=== PATIENT | male | born 1950 | race Caucasian/White ===

== ENCOUNTER → 2016-12-16 | Outpatient (REF) | payer MEDICARE, OTHER ==
[~2016-12-16] MED LIST: AMLO10CA29 PO; AMLO10TA PO; BENA40TA PO; BISO5TAB5 PO; CIPR500T89 PO; FLAG500T PO; HUMA50IN3 SC; INSULANT SC; PROT1TAB2 PO
== END ==
LOC: M LAB REF 13:03
PROVIDERS: ATTEND Internal Medicine
DX: R53.81 Other malaise (principal); E04.1 Nontoxic single thyroid nodule

== ENCOUNTER → 2017-01-20 | Outpatient (CLI) | payer MEDICARE, OTHER ==
[~2017-01-20] MED LIST changes: +FLOM5CAP PO; +LUNE3TAB48 PO
[2017-01-20 12:00] LABS: MEAN CORPUSCULAR HEMOGLOBIN 29.8 pg (27.0-33.0); MEAN CORPUSCULAR HGB CONC 34.2 g/dl (32.0-36.5); MEAN CORPUSCULAR VOLUME 87.2 fl (80.0-96.0); RED CELL DISTRIBUTION WIDTH 13.6 % (11.5-14.5)
== END ==
LOC: M LAB 11:12
PROVIDERS: ATTEND Anesthesiology
DX: Z01.818 Encounter for other preprocedural examination (principal); E04.1 Nontoxic single thyroid nodule; G47.30 Sleep apnea, unspecified; E10.9 Type 1 diabetes mellitus without complications

== ENCOUNTER 2017-01-24 06:04 | Day surgery (SDC) | payer MEDICARE, OTHER ==
[~2017-01-24] VITALS: Ht 182.9 cm; Wt 142.2 kg
[2017-01-24] MEDS ORDERED: PROPOFOL 200 MG/20 ML VIAL As Ordered ONE ×2 (07:16→08:32)
[2017-01-24] MEDS ORDERED: LIDOCAINE 2% INJ 100 MG/5 ML SDV (FOR ANES.) As Ordered ONE (07:16)
[2017-01-24] MEDS ORDERED: MIDAZOLAM INJ 2 MG/2 ML VIAL (J2250) As Ordered ONE ×2 (07:17→10:49)
[2017-01-24] MEDS ORDERED: fentaNYL 250 MCG/5 ML INJECTION (J3010) As Ordered ONE (07:17)
[2017-01-24] MEDS ORDERED: BACITRACIN OINT 30GM As Ordered ONE (07:21)
[2017-01-24] MEDS ORDERED: LIDOCAINE W/EPINEPHRINE 1% 20ML VIAL As Ordered ONE (07:21)
[2017-01-24] MEDS ORDERED: ePHEDrine SULFATE 25 MG/5 ML(5MG/ML) SYRINGE As Ordered ONE ×2 (08:04→08:41)
[2017-01-24] MEDS ORDERED: HYDROmorphone HCL 2 MG/ML 1ML VIAL (J1170) As Ordered ONE (08:13)
[2017-01-24] MEDS ORDERED: REMIFENTANIL 1MG 3ML VIAL As Ordered ONE ×2 (08:13→09:20)
[2017-01-24] MEDS ORDERED: PHENYLephrine HCL 500 MCG/5 ML (100MCG/ML) SYRINGE (J2370) As Ordered ONE (08:41)
[2017-01-24] MEDS ORDERED: ONDANSETRON 4MG/2ML VIAL (J2405) As Ordered ONE (09:29)
[2017-01-24] MEDS ORDERED: LR 1,000 ML IV SCH ×2 (11:00)
[2017-01-24] MEDS ORDERED: fentaNYL 100 MCG/2 ML INJECTION (J3010) IV PRN (11:00)
[2017-01-24] MEDS ORDERED: PERCOCET 5MG/325MG TAB PO PRN (11:00)
[2017-01-24] MEDS ORDERED: ACETAMINOPH W/CODEINE #3 TAB UD PO PRN (11:00)
[2017-01-24] MEDS ORDERED: HYDROmorphone HCL 1 MG/ML SYRINGE (J1170) IV PRN (11:00)
[2017-01-24] MEDS ORDERED: MORPHINE 10 MG/ML 1ML VIAL IV PRN (11:00)
[2017-01-24] MEDS ORDERED: ONDANSETRON 4MG/2ML VIAL (J2405) IV PRN (11:00)
[2017-01-24] MEDS ORDERED: LABETALOL HCL 100 MG/20 ML VIAL As Ordered ONE (11:10)
[2017-01-24] MEDS ORDERED: LEVALBUTEROL 1.25 MG/0.5 ML CONCENTRATE NEB INH ONE (14:00)
[2017-01-24] MEDS ORDERED: DEXTROSE 50% 50 ML SYRINGE IV PRN (15:15)
[2017-01-24] MEDS ORDERED: GLUCAGON FOR INJ 1 MG VIAL (J1610) SC PRN (15:15)
[2017-01-24] MEDS ORDERED: GLUCOSE 4 GM CHEW TABLET PO PRN (15:15)
[2017-01-24 16:40] VITALS: BP 160/74
[2017-01-24] MEDS: HumaLOG INSULIN (NovoLOG) PER UNIT SC SCH (17:17)
[2017-01-24] MEDS: NORCO, ANEXSIA 5/325MG TABLET (HYDROcodone/ACETAMINOPHEN) PO PRN (18:43)
[2017-01-24 18:45] VITALS: O2SAT 97
[2017-01-24 19:42] VITALS: BP 149/71
--- NOTE | 2017-01-24 20:16 | IPNPDOC ---
Subjective Date Seen The patient was seen on 01/24/17. Subjective Chief Complaint/HPI The patient is a 66-year-old male admitted with a reason for visit of Right Thyroid Mass. Events since last encounter Patient seen in post op recovery. Experienced shortness of breath post operatively associated with excessive post nasal drip. He has been experiencing post nasal drip that he associates with the use of his bipap for weeks. After arosing from anesthesia, he seemed to have more than normal, and he felt it pooling in the back of his throat. He clearly denies chest pain, orthopnea or shortness of breath currently. He is sitting in chair during my exam as laying down result in continued post nasal drip. Constitutional: Denies: Chills, Fever ENT: Reports: Head Aches (bifrontal) Pulmonary: Denies: Cough, Dyspnea Cardiovascular: Denies: Chest Pain, Orthopnea, Palpitations Gastrointestinal: Denies: Abdominal Pain, Nausea, Vomiting Objective Physical Examination General Exam: Positive: Alert, Cooperative ENT Exam: Positive: Mucous membr. moist/pink, Pharynx Normal (some echymosis of the soft palate at the junction with the tonsilar pillars) Chest Exam: Positive: Normal air movement, Other, Negative: Diminished, Rales, Rhonchi Heart Exam: Positive: Normal S1, Normal S2, Rate Normal, Regular Rhythm Abdomen Exam: Positive: BS Hypoactive, Soft, Negative: Tenderness Extremity Exam: Positive: Edema (trace bilateral), Negative: Clubbing, Cyanosis Assessment /Plan Problems (1) Thyroid enlargement Status: Acute Problem Text: POD#0 partial thyroidectomy (2) GUS treated with BiPAP Status: Chronic Problem Text: Brought bipap from home very compliant (3) Diabetes mellitus Status: Chronic Problem Text: on insulin. switched to levemir lower dose, as lantus not on formulary Ordered sliding scale (4) Obesities, morbid Status: Chronic Problem Text: complicates care (5) HTN (hypertension) Status: Chronic Problem Text: continue beta yusef with hold parameters Reassess BP in am (6) Hyperlipidemia Status: Chronic (7) Nasal drainage Status: Acute Problem Text: trial of astelin Plan/VTE VTE Prophylaxis Ordered?: Yes VS, I&O, 24H, Fishbone Vital Signs/I&O Vital Signs Date Time Temp Pulse Resp B/P Pulse Ox O2 Delivery O2 Flow Rate FiO2 01/24/17 19:42 98.9 77 20 149/71 96 NIPPV (BIPAP/CPAP) 01/24/17 11:25 4 Laboratory Data 24H LABS Laboratory Tests 2 01/24/17 06:37: Bedside Glucose (Misc Panel) 225H 01/24/17 10:58: Bedside Glucose (Misc Panel) 208H 01/24/17 17:07: Bedside Glucose (Misc Panel) 234H MAMIE BENSON MD Jan 24, 2017 20:16
--- NOTE | 2017-01-24 20:30 | RO ---
DATE OF PROCEDURE: 01/24/2017 PREOPERATIVE DIAGNOSIS: Right thyroid mass. POSTOPERATIVE DIAGNOSIS: Right thyroid mass. PROCEDURE: Right thyroid lobectomy. SURGEON: Dr. Mor Greenberg SCREWHEAD POLISHER: Dr. Isidro Magana and Palmer Hamilton. ANESTHESIA: FINDINGS: Very large right lobe of thyroid which extended behind the esophagus and up to above the hyoid bone. DESCRIPTION OF PROCEDURE: Under general anesthesia with the patient intubated, the patient was prepped and draped in the usual manner. I did use a nerve monitoring tube during the procedure, so the electrodes were hooked up prior to surgery. Skin incision was mapped out. I divided skin, subcutaneous and platysma after I infiltrated with lidocaine with epinephrine. I dissected through platysma, then dissected inferiorly and superiorly. I divided the strap muscles in the midline. I then divided the strap muscles on the right side. I started first by dissecting inferiorly around the inferior part of the gland. Vessels seen were divided with a Harmonic scalpel. I divided the isthmus. I then used this dissection to follow inferiorly. I dissected it close to the thyroid gland to preserve the parathyroid. The vein, artery inferiorly were divided. I did not see the nerve. I then dissected from medial to lateral and then superiorly. I dissected up almost until I reached the cricoid area. I did dissect the thyroid off of the trachea more superiorly. Then, attention was directed superiorly. I divided the strap muscles again. I dissected the thyroid from the larynx and followed it from the isthmus superior. I then dissected around laterally. I identified the superior pole vessels and divided with the Harmonic scalpel. Then, using sharp and blunt dissection and the Harmonic scalpel, I dissected around the superior pole laterally and then once I got superiorly, I could pull the thyroid down and dissect it off medially with just blunt dissection. Once this was done, then I was able to deliver the thyroid from the neck and then using blunt dissection, I dissected the thyroid completely free and delivered it from the wound. After it was delivered, as I stayed right on the gland, I dissected down an area that looked rather fatty. I found the recurrent laryngeal nerve, which was running from inferior to superior, lateral to medial, was found to be intact and looked a bit more like fat but it stimulated well. There was no bleeding. Less than 20 mL of estimated blood loss. I irrigated the area, and there was no bleeding. I then put in a Floyd-Johnson drain through a separate stab wound and closed the neck with #4-0 Vicryl and #5-0 nylon. I put a #2-0 silk suture to hold the drain in place. The patient tolerated the procedure well, was extubated and transferred to the recovery room in excellent condition.
[2017-01-24] MEDS: LEVEMIR (INSULIN DETEMIR) 1 UNITS/0.01ML SC SCH (20:34)
[2017-01-24] MEDS: AZELASTINE 137MCG NASAL SPY 30 ML (ASTELIN) SCH (21:00)
[2017-01-24] MEDS ORDERED: HumaLOG INSULIN (NovoLOG) PER UNIT SC SCH (21:00)
[2017-01-24] MEDS ORDERED: LEVALBUTEROL 1.25 MG/0.5 ML CONCENTRATE NEB As Ordered ONE (21:53)
[2017-01-25] VITALS (15 sets, daily range): BP systolic 145–175; BP diastolic 65–85; O2SAT 91–95
[2017-01-25] MEDS: NORCO, ANEXSIA 5/325MG TABLET (HYDROcodone/ACETAMINOPHEN) PO PRN ×2 (00:12→05:00)
[2017-01-25] MEDS ORDERED: SLF 3 ML SYR IV PRN (00:15)
--- NOTE | 2017-01-25 00:50 | ECGEPIP ---
Stationary ECG Study [facility] Test Date: 2017-01-24 Pat Name: MAC GROSS Department: Room: - Gender: M Clinical Care Leader: CELSO : 1950 Requested By: MAMIE Fontana Order Number: [id number] Reading MD: Fran Barr Measurements Intervals [place] Rate: 79 P: 46 CT: 175 QRS: -17 QRSD: 94 T: -1 QT: 396 QTc: 455 Interpretive Statements SINUS RHYTHM LAST TRACING ON 05/20/2015 AT 23:55:51, NO SIGNIFICANT CHANGES Pt sitting upright in chair Electronically Signed On 01-25-2017 0:49:57 EDT by Fran Barr
[2017-01-25] MEDS: SLF 3 ML SYR IV SCH ×2 (05:43→13:03)
[2017-01-25 06:12] LABS: ANION GAP 11 MEQ/L (8-16); BLOOD UREA NITROGEN 13 MG/DL (7-18); CARBON DIOXIDE LEVEL 26 MEQ/L (21-32); CHLORIDE LEVEL 101 MEQ/L (98-107); CREATININE FOR GFR 1.06 MG/DL (0.70-1.30); GLOMERULAR FILTRATION RATE > 60.0 (>49); GLUCOSE, FASTING 228 MG/DL (80-110); SODIUM LEVEL 138 MEQ/L (136-145)
[2017-01-25 06:32] LABS: MEAN CORPUSCULAR HEMOGLOBIN 29.8 pg (27.0-33.0); MEAN CORPUSCULAR HGB CONC 33.9 g/dl (32.0-36.5); MEAN CORPUSCULAR VOLUME 87.8 fl (80.0-96.0); RED CELL DISTRIBUTION WIDTH 13.7 % (11.5-14.5); WHITE BLOOD COUNT 10.2 K/mm3 (4.0-10.0)
[2017-01-25] MEDS: HumaLOG INSULIN (NovoLOG) PER UNIT SC SCH ×2 (08:19→13:03)
[2017-01-25] MEDS: AZELASTINE 137MCG NASAL SPY 30 ML (ASTELIN) SCH (08:19)
[2017-01-25] MEDS: LEVEMIR (INSULIN DETEMIR) 1 UNITS/0.01ML SC SCH (08:20)
[2017-01-25] MEDS ORDERED: BISOPROLOL FUMARATE 5 MG TAB PO SCH (09:00)
[2017-01-25] MEDS ORDERED: PANTOPRAZOLE 40MG TAB (PROTONIX) PO SCH (09:00)
--- NOTE | 2017-01-25 12:08 | IPNPDOC ---
Subjective Date Seen The patient was seen on 01/25/17. Subjective Chief Complaint/HPI The patient is a 66-year-old male admitted with a reason for visit of Right Thyroid Mass. Events since last encounter Feeling well. No complaint of chest pain, not short of breath, post nasal drip continues, fullness in throat makes swallowing more difficult than usual Constitutional: Denies: Chills, Fever Pulmonary: Denies: Cough, Dyspnea Cardiovascular: Denies: Chest Pain, Palpitations Gastrointestinal: Denies: Abdominal Pain, Nausea, Vomiting Objective Physical Examination General Exam: Positive: Alert, Cooperative, No Acute Distress ENT Exam: Positive: Mucous membr. moist/pink Chest Exam: Positive: Normal air movement, Negative: Diminished, Rales, Rhonchi Heart Exam: Positive: Normal S1, Normal S2, Rate Normal, Regular Rhythm Abdomen Exam: Positive: BS Hypoactive, Soft, Negative: Tenderness Extremity Exam: Positive: Edema (trace bilateral), Negative: Clubbing, Cyanosis Assessment /Plan Problems (1) Thyroid enlargement Status: Acute Problem Text: POD#1 partial thyroidectomy (2) GUS treated with BiPAP Status: Chronic Problem Text: Brought bipap from home very compliant used last night (3) Diabetes mellitus Status: Chronic Problem Text: on insulin. switched to levemir lower dose, as lantus not on formulary Ordered sliding scale Upon discharge if today- recommend 2/3 normal dose of lantus tonight resume normal dose thereafter (4) Obesities, morbid Status: Chronic Problem Text: complicates care (5) HTN (hypertension) Status: Chronic Problem Text: continue beta yusef with hold parameters Can resume home meds at discharge (6) Hyperlipidemia Status: Chronic (7) Nasal drainage Status: Acute Problem Text: astelin at discharge as a trial Plan/VTE VTE Prophylaxis Ordered?: Yes VS, I&O, 24H, Fishbone Vital Signs/I&O Vital Signs Date Time Temp Pulse Resp B/P Pulse Ox O2 Delivery O2 Flow Rate FiO2 01/25/17 09:34 66 155/76 68 166/82 71 163/77 01/25/17 08:00 98.5 22 93 Room Air 01/24/17 11:25 4 I&O- Last 24 Hours up to 6 AM 01/25/17 06:00 Intake Total 2030 ml Output Total 2835 ml Balance -805 ml Laboratory Data 24H LABS Laboratory Tests 2 01/24/17 17:07: Bedside Glucose (Misc Panel) 234H 01/24/17 20:21: Bedside Glucose (Misc Panel) 285H 01/25/17 05:16: Anion Gap 11, Blood Urea Nitrogen 13, Creatinine 1.06, Sodium Level 138, Potassium Level 4.0, Chloride Level 101, Carbon Dioxide Level 26, Calcium Level 9.0, Glomerular Filtration Rate > 60.0 01/25/17 09:22: Bedside Glucose (Misc Panel) 300H 01/25/17 11:11: Bedside Glucose (Misc Panel) 280H CBC/BMP Laboratory Tests 01/25/17 05:16 Calcium Level 9.0, Red Blood Count 4.41, Mean Corpuscular Volume 87.8, Mean Corpuscular Hemoglobin 29.8, Mean Corpuscular Hemoglobin Concent 33.9, Red Cell Distribution Width 13.7 MAMIE BENSON MD Jan 25, 2017 12:08
[2017-01-25] MEDS ORDERED: AZEL0.1S3 (16:56)
[2017-01-25] MEDS ORDERED: ACET30TAB PO (16:56)
== END 2017-01-25 17:53 | disposition home or self-care (01) ==
LOC: M SDC 06:04 → M PCU 16:41 → M SDC 01-25 17:53
PROVIDERS: ATTEND Otolaryngology
DX: E04.1 Nontoxic single thyroid nodule (principal); E11.22 Type 2 diabetes mellitus with diabetic chronic kidney disease; E11.65 Type 2 diabetes mellitus with hyperglycemia; E11.21 Type 2 diabetes mellitus with diabetic nephropathy; K21.9 Gastro-esophageal reflux disease without esophagitis; I12.9 Hypertensive chronic kidney disease with stage 1 through stage 4 chronic kidney disease, or unspecified chronic kidney disease; N18.3 Chronic kidney disease, stage 3 (moderate); K22.70 Barrett's esophagus without dysplasia; G47.33 Obstructive sleep apnea (adult) (pediatric); E78.00 Pure hypercholesterolemia, unspecified; E88.81 Metabolic syndrome and other insulin resistance; E66.01 Morbid (severe) obesity due to excess calories; Z68.41 Body mass index [BMI] 40.0-44.9, adult; K76.9 Liver disease, unspecified; E11.42 Type 2 diabetes mellitus with diabetic polyneuropathy; N40.0 Benign prostatic hyperplasia without lower urinary tract symptoms; I49.9 Cardiac arrhythmia, unspecified; M54.2 Cervicalgia; R06.83 Snoring; Z88.0 Allergy status to penicillin; Z88.1 Allergy status to other antibiotic agents; Z88.2 Allergy status to sulfonamides; Z79.899 Other long term (current) drug therapy; Z79.4 Long term (current) use of insulin; Z87.891 Personal history of nicotine dependence
CPT/HCPCS: 36415; 60220; 80048; 85027; 88307; 93005; J1170; J2250; J2370; J2405; J3010

== ENCOUNTER 2017-01-27 09:46 | Emergency (ER) | payer MEDICARE, OTHER ==
[~2017-01-27] VITALS: Ht 180.3 cm; Wt 140.6 kg
[~2017-01-27 09:46] MED LIST changes: +ACET30TAB PO; +AZEL0.1S3
[2017-01-27 11:07] LABS: VENOUS BASE EXCESS -0.1 (-2.0-2.0); VENOUS O2 SATURATION 93.6 % (60.0-80.0); VENOUS PARTIAL PRESSURE CO2 43.2 mmHg (38.0-50.0); VENOUS STANDARD HCO3 24.3 MEQ/L; VENOUS TOTAL CO2 26.5 MEQ/L (24.0-28.0)
[2017-01-27 11:10] LABS: BASO % 0.5 % (0.0-1.0); EOS # 0.3 K/mm3 (0.0-0.50); EOS % 2.7 % (0.0-3.0); LARGE UNSTAINED CELL # 0.2 K/mm3 (0.0-0.4); LARGE UNSTAINED CELL % 1.5 % (0.0-4.0); LYMPH % 17.2 % (24.0-44.0); MEAN CORPUSCULAR HEMOGLOBIN 29.8 pg (27.0-33.0); MEAN CORPUSCULAR HGB CONC 33.7 g/dl (32.0-36.5); MEAN CORPUSCULAR VOLUME 88.4 fl (80.0-96.0); MONO # 0.7 K/mm3 (0.0-0.8); MONO % 6.4 % (0.0-5.0); NEUTROPHILS # 7.6 K/mm3 (1.8-7.7); NEUTROPHILS % 71.8 % (36.0-66.0); PLATELET COUNT, AUTOMATED 195 k/mm3 (150-450); RED CELL DISTRIBUTION WIDTH 13.5 % (11.5-14.5); WHITE BLOOD COUNT 10.6 K/mm3 (4.0-10.0)
[2017-01-27 11:32] LABS: ANION GAP 9 MEQ/L (8-16); BLOOD UREA NITROGEN 14 MG/DL (7-18); CALCIUM LEVEL 9.5 MG/DL (8.8-10.2); CARBON DIOXIDE LEVEL 27 MEQ/L (21-32); CHLORIDE LEVEL 103 MEQ/L (98-107); CREATININE FOR GFR 0.99 MG/DL (0.70-1.30); GLOMERULAR FILTRATION RATE > 60.0 (>49); GLUCOSE, FASTING 184 MG/DL (80-110); POTASSIUM SERUM 4.4 MEQ/L (3.5-5.1); SODIUM LEVEL 139 MEQ/L (136-145)
[2017-01-27] MEDS ORDERED: NS 500 ML IV ONE (12:00)
[2017-01-27 13:55] VITALS: O2SAT 96
[2017-01-27 14:06] VITALS: BP 149/78
--- NOTE | 2017-01-28 19:42 | ECGEPIP ---
Stationary ECG Study [facility] - ED Test Date: 2017-01-27 Pat Name: MAC GROSS Department: Room: - Gender: M Tax Senior Associate: rn : 1950 Requested By: Kelvin Henderson Order Number: [id number] Reading MD: Marilou Glover Measurements Intervals [place] Rate: 54 P: 51 MD: 185 QRS: -12 QRSD: 93 T: 2 QT: 413 QTc: 392 Interpretive Statements SINUS BRADYCARDIA NSTTW ABNORMALITY DECREASED RATE 01/24/17 Electronically Signed On 01-28-2017 19:42:23 EDT by Marilou Glover
== END 2017-01-27 14:07 | disposition home or self-care (01) ==
LOC: M ED 10:39
DX: R53.1 Weakness (principal)

== ENCOUNTER → 2017-02-08 | Outpatient (REF) | payer MEDICARE, OTHER | LOC: M LAB REF 14:48 | PROVIDERS: ATTEND Physician Assistant Medical | DX: L02.91 Cutaneous abscess, unspecified (principal) ==

== ENCOUNTER → 2017-03-14 | Outpatient (CLI) | payer MEDICARE, OTHER ==
[~2017-03-14] MED LIST changes: +E-Z-GAS II EFFERVESCENT PACKET (SODIUM BICARB./CITRIC ACID/SIMETHICONE) As Ordered ONE; +E-Z-HD 98% w/w 340GM SUSP BTL As Ordered ONE; +E-Z-PAQUE 96% w/w SUSP 176GM BTL As Ordered ONE
--- NOTE | 2017-03-14 17:58 | REP ---
ESOPHAGRAM: The procedure was performed under the direct supervision of Dr. Engel. The images were reviewed with Dr. Engel. A single view PA chest x-ray is submitted as a senior process control tech film. There is no change compared to a previous chest x-ray performed on 01/01/2016. Liquid barium and gas producing granules were given in the erect position as well as liquid barium in the prone oblique position in order to perform a double contrast esophagram examination. During the oral and pharyngeal stages of deglutition there is penetration. Esophageal transport is prompt and efficient and there is no esophagitis, stricture or mucosal ring. There is a hiatal hernia present. There is full column gastroesophageal reflux demonstrated to above the level of the jay. Note is made of multiple subcentimeter polyps within the stomach. IMPRESSION: 1. There is laryngeal penetration. 2. There is a hiatal hernia present. There is full column gastroesophageal reflux demonstrated to above the level of the jay. 3. Note is made of multiple subcentimeter polyps within the stomach. 1 minute and 20 seconds of fluoroscopy time was utilized for this procedure. Reviewed by ULISSES Saavedra 03/15/2017 09:38 AEdited and Signed by Prieto Engel MD 03/15/2017 04:41 P
== END ==
LOC: M RAD 08:20
PROVIDERS: ATTEND Otolaryngology
DX: R47.02 Dysphasia (principal); K44.9 Diaphragmatic hernia without obstruction or gangrene; K31.7 Polyp of stomach and duodenum

== ENCOUNTER → 2017-03-21 | Outpatient (CLI) | payer MEDICARE, OTHER ==
[~2017-03-21] MED LIST changes: -E-Z-GAS II EFFERVESCENT PACKET (SODIUM BICARB./CITRIC ACID/SIMETHICONE) As Ordered ONE; -E-Z-HD 98% w/w 340GM SUSP BTL As Ordered ONE; -E-Z-PAQUE 96% w/w SUSP 176GM BTL As Ordered ONE
== END ==
LOC: M LAB 11:12
PROVIDERS: ATTEND Otolaryngology
DX: E03.9 Hypothyroidism, unspecified (principal)

== ENCOUNTER 2017-05-27 14:25 | Emergency (ER) | payer MEDICARE, OTHER ==
[~2017-05-27] VITALS: Ht 182.9 cm; Wt 145.5 kg
[~2017-05-27 14:25] MED LIST changes: +CIPR-249 PO; -CIPR500T89 PO; +LUNE3TAB36 PO; -LUNE3TAB48 PO
[2017-05-27] MEDS ORDERED: LEVO100T5 PO (14:36)
[2017-05-27] MEDS ORDERED: GABA-282 PO (14:36)
[2017-05-27] MEDS ORDERED: CEFD300CAP FT (14:38)
[2017-05-27 15:27] LABS: BASO # 0.1 K/mm3 (0.0-0.2); BASO % 1.3 % (0.0-1.0); EOS # 0.3 K/mm3 (0.0-0.50); EOS % 3.6 % (0.0-3.0); LARGE UNSTAINED CELL # 0.2 K/mm3 (0.0-0.4); LARGE UNSTAINED CELL % 2.5 % (0.0-4.0); LYMPH % 23.1 % (24.0-44.0); MEAN CORPUSCULAR HEMOGLOBIN 30.7 pg (27.0-33.0); MEAN CORPUSCULAR HGB CONC 34.7 g/dl (32.0-36.5); MEAN CORPUSCULAR VOLUME 88.3 fl (80.0-96.0); MONO # 0.5 K/mm3 (0.0-0.8); MONO % 5.8 % (0.0-5.0); NEUTROPHILS # 5.4 K/mm3 (1.8-7.7); NEUTROPHILS % 63.7 % (36.0-66.0); PLATELET COUNT, AUTOMATED 211 k/mm3 (150-450); RED CELL DISTRIBUTION WIDTH 13.3 % (11.5-14.5); WHITE BLOOD COUNT 8.4 K/mm3 (4.0-10.0)
[2017-05-27] MEDS ORDERED: CLINDAMYCIN 300 MG in APPROPRIATE DILUENT 1 EA IV ONE (15:30)
[2017-05-27] MEDS ORDERED: NS 1,000 ML IV ONE (15:30)
[2017-05-27 15:43] LABS: ANION GAP 6 MEQ/L (8-16); BLOOD UREA NITROGEN 12 MG/DL (7-18); CALCIUM LEVEL 10.2 MG/DL (8.8-10.2); CARBON DIOXIDE LEVEL 29 MEQ/L (21-32); CHLORIDE LEVEL 102 MEQ/L (98-107); CREATININE FOR GFR 1.11 MG/DL (0.70-1.30); GLOMERULAR FILTRATION RATE > 60.0 (>49); GLUCOSE, FASTING 216 MG/DL (80-110); POTASSIUM SERUM 4.1 MEQ/L (3.5-5.1); SODIUM LEVEL 137 MEQ/L (136-145)
[2017-05-27] MEDS ORDERED: CLEO300C2 PO (16:47)
[2017-05-27 16:56] VITALS: BP 156/74
== END 2017-05-27 16:57 | disposition home or self-care (01) ==
LOC: M ED 14:25
DX: L03.115 Cellulitis of right lower limb (principal); E11.9 Type 2 diabetes mellitus without complications; I10 Essential (primary) hypertension; Z87.891 Personal history of nicotine dependence

== ENCOUNTER → 2017-05-29 | Outpatient (REF) | payer MEDICARE, OTHER ==
[~2017-05-29] MED LIST changes: +CEFD300CAP FT; +CLEO300C2 PO; +GABA-282 PO; +LEVO100T5 PO
== END ==
LOC: M LAB REF 16:54
PROVIDERS: ATTEND Nurse Practitioner Family
DX: L03.115 Cellulitis of right lower limb (principal)

== ENCOUNTER 2017-12-21 12:12 | Emergency (ER) | payer MEDICARE, OTHER ==
[2017-12-21] MEDS: IPRATROPIUM 0.5MG/ALBUTEROL 2.5MG INH SOL UD 3ML (DUONEB)(J7620) NEB (14:29)
[2017-12-21 14:38] LABS: BASO # 0.1 10^3/uL (0.0-0.2); BASO % 0.5 % (0.0-1.0); EOS # 0.4 10^3/uL (0.0-0.50); EOS % 3.7 % (0.0-3.0); HEMATOCRIT 43.2 % (42.0-52.0); HEMOGLOBIN 14.7 g/dl (14.0-18.0); IMMATURE GRANULOCYTE % 0.4 % (0-3.0); LYMPH # 1.1 10^3/uL (1.5-4.5); LYMPH % 10.4 % (24.0-44.0); MEAN CORPUSCULAR HEMOGLOBIN 29.6 pg (27.0-33.0); MEAN CORPUSCULAR VOLUME 86.9 fl (80.0-96.0); MONO # 0.8 10^3/uL (0.0-0.8); MONO % 7.4 % (0.0-5.0); NEUTROPHILS # 8.5 10^3/uL (1.8-7.7); NEUTROPHILS % 77.6 % (36.0-66.0); PLATELET COUNT, AUTOMATED 197 10^3/uL (150-450); RED BLOOD COUNT 4.97 10^6/uL (4.30-6.10); RED CELL DISTRIBUTION WIDTH 13.2 % (11.5-14.5)
[2017-12-21 14:54] LABS: BEDSIDE GLUCOSE 193 MG/DL (80-115)
[2017-12-21 15:05] LABS: ANION GAP 9 MEQ/L (8-16); BLOOD UREA NITROGEN 13 MG/DL (7-18); CALCIUM LEVEL 9.6 MG/DL (8.8-10.2); CARBON DIOXIDE LEVEL 27 MEQ/L (21-32); CHLORIDE LEVEL 100 MEQ/L (98-107); CK-MB VALUE MASS 1.4 NG/ML (0.0-3.6); CPK CREATINE PHOSPHOKINASE 150 U/L (39-308); CREATININE FOR GFR 1.06 MG/DL (0.70-1.30); GLOMERULAR FILTRATION RATE > 60.0 (>49); GLUCOSE, FASTING 202 MG/DL (70-100); MB/CK RELATIVE INDEX 0.93 (< OR =4); POTASSIUM SERUM 4.1 MEQ/L (3.5-5.1); SODIUM LEVEL 136 MEQ/L (136-145); TROPONIN I < 0.02 NG/ML (< 0.10)
[2017-12-21 15:08] LABS: LACTIC ACID SEPSIS PROTOCOL 2.2 MMOL/L (0.4-2.0)
[2017-12-21 15:10] LABS: ALBUMIN 3.8 GM/DL (3.2-5.2); ALBUMIN/GLOBULIN RATIO 0.93 (1.00-1.93); ALKALINE PHOSPHATASE 93 U/L (45-117); ALT/SGPT 38 U/L (12-78); AST/SGOT 26 U/L (7-37); BILIRUBIN,DIRECT 0.2 MG/DL (0.0-0.2); BILIRUBIN,TOTAL 0.5 MG/DL (0.2-1.0); NT-PRO BNP 267 PG/ML (<125); TOTAL PROTEIN 7.9 GM/DL (6.4-8.2)
[2017-12-21 15:29] LABS: INFLUENZA A AMPLIFICATION POSITIVE (NEGATIVE); INFLUENZA B AMPLIFICATION NEGATIVE (NEGATIVE)
[2017-12-21] MEDS: NS 1,000 ML IV (15:30)
[2017-12-21] MEDS: IBUPROFEN 600 MG TAB PO (15:45)
[2017-12-21] MEDS: OSELTAMIVIR PHOSPHATE 75 MG CAP (TAMIFLU) PO (17:09)
== END 2017-12-21 17:27 | disposition home or self-care (01) ==
LOC: M ED 12:12
DX: J98.01 Acute bronchospasm (principal); J09.X2 Influenza due to identified novel influenza A virus with other respiratory manifestations; E11.9 Type 2 diabetes mellitus without complications; G47.30 Sleep apnea, unspecified; K21.9 Gastro-esophageal reflux disease without esophagitis; N40.0 Benign prostatic hyperplasia without lower urinary tract symptoms; Z79.2 Long term (current) use of antibiotics; Z79.890 Hormone replacement therapy; Z79.899 Other long term (current) drug therapy; Z88.1 Allergy status to other antibiotic agents; Z88.0 Allergy status to penicillin; Z88.8 Allergy status to other drugs, medicaments and biological substances; Z87.891 Personal history of nicotine dependence; Z87.19 Personal history of other diseases of the digestive system; Z98.890 Other specified postprocedural states; Z86.59 Personal history of other mental and behavioral disorders
CPT/HCPCS: 71046

== ENCOUNTER → 2018-01-02 | Outpatient (REF) | payer MEDICARE, OTHER ==
[2018-01-02 20:19] LABS: BASO # 0.1 10^3/uL (0.0-0.2); BASO % 0.7 % (0.0-1.0); EOS # 0.4 10^3/uL (0.0-0.50); EOS % 4.2 % (0.0-3.0); HEMATOCRIT 43.5 % (42.0-52.0); HEMOGLOBIN 14.1 g/dl (14.0-18.0); IMMATURE GRANULOCYTE % 0.4 % (0-3.0); LYMPH # 1.9 10^3/uL (1.5-4.5); LYMPH % 21.2 % (24.0-44.0); MEAN CORPUSCULAR HEMOGLOBIN 29.3 pg (27.0-33.0); MEAN CORPUSCULAR HGB CONC 32.4 g/dl (32.0-36.5); MEAN CORPUSCULAR VOLUME 90.4 fl (80.0-96.0); MONO # 0.7 10^3/uL (0.0-0.8); MONO % 7.5 % (0.0-5.0); PLATELET COUNT, AUTOMATED 251 10^3/uL (150-450); RED BLOOD COUNT 4.81 10^6/uL (4.30-6.10); RED CELL DISTRIBUTION WIDTH 13.4 % (11.5-14.5); WHITE BLOOD COUNT 9.1 10^3/uL (4.0-10.0)
[2018-01-02 21:03] LABS: NT-PRO BNP 80 PG/ML (<125)
== END ==
LOC: M LAB REF 18:34
DX: J20.9 Acute bronchitis, unspecified (principal); R05 Cough; R06.02 Shortness of breath

== ENCOUNTER → 2018-01-02 | Outpatient (CLI) | payer MEDICARE, OTHER | LOC: M ADAMS 12:01 | DX: J20.9 Acute bronchitis, unspecified (principal); R05 Cough; R06.02 Shortness of breath | CPT/HCPCS: 85025 ==

== ENCOUNTER → 2018-06-15 | Outpatient (REF) | payer MEDICARE, OTHER ==
[2018-06-15 13:38] LABS: BASO # 0.1 10^3/uL (0.0-0.2); BASO % 0.9 % (0.0-1.0); EOS # 0.4 10^3/uL (0.0-0.50); HEMATOCRIT 40.6 % (42.0-52.0); HEMOGLOBIN 13.7 g/dl (13.5-17.5); IMMATURE GRANULOCYTE % 0.4 % (0-3.0); LYMPH # 1.7 10^3/uL (1.5-4.5); LYMPH % 21.3 % (24.0-44.0); MEAN CORPUSCULAR HEMOGLOBIN 30.4 pg (27.0-33.0); MEAN CORPUSCULAR HGB CONC 33.7 g/dl (32.0-36.5); MEAN CORPUSCULAR VOLUME 90.2 fl (80.0-96.0); MONO # 0.6 10^3/uL (0.0-0.8); MONO % 7.3 % (0.0-5.0); NEUTROPHILS # 5.2 10^3/uL (1.8-7.7); NEUTROPHILS % 65.1 % (36.0-66.0); PLATELET COUNT, AUTOMATED 214 10^3/uL (150-450); RED CELL DISTRIBUTION WIDTH 13.2 % (11.5-14.5); WHITE BLOOD COUNT 7.9 10^3/uL (4.0-10.0)
[2018-06-15 14:02] LABS: ERYTHROCYTE SEDIMENTATION RATE 47 mm/hr (0-20)
[2018-06-15 14:24] LABS: VITAMIN B12 LEVEL 343 PG/ML
[2018-06-15 14:25] LABS: FOLATE 9.5 NG/ML
[2018-06-15 14:26] LABS: ALBUMIN 3.5 GM/DL (3.2-5.2); ALBUMIN/GLOBULIN RATIO 0.85 (1.00-1.93); ALKALINE PHOSPHATASE 83 U/L (45-117); ALT/SGPT 58 U/L (12-78); ANION GAP 8 MEQ/L (8-16); AST/SGOT 51 U/L (7-37); BILIRUBIN,TOTAL 0.4 MG/DL (0.2-1.0); BLOOD UREA NITROGEN 20 MG/DL (7-18); CALCIUM LEVEL 9.6 MG/DL (8.8-10.2); CARBON DIOXIDE LEVEL 26 MEQ/L (21-32); CHLORIDE LEVEL 103 MEQ/L (98-107); CREATININE FOR GFR 1.21 MG/DL (0.70-1.30); GLOMERULAR FILTRATION RATE > 60.0 (>49); GLUCOSE, FASTING 318 MG/DL (70-100); POTASSIUM SERUM 4.2 MEQ/L (3.5-5.1); RHEUMATOID FACTOR QUANT < 10.0 IU/ML (<15.0); SODIUM LEVEL 137 MEQ/L (136-145); TOTAL PROTEIN 7.6 GM/DL (6.4-8.2)
[2018-06-15 14:38] LABS: ESTIMATED AVERAGE GLUCOSE 226 MG/DL (60-110); HEMOGLOBIN A1c 9.5 %
[2018-06-19 00:06] LABS: VITAMIN E(GAMMA TOCOPHEROL) 2.4 mg/L (0.5-4.9)
[2018-06-19 08:44] LABS: ANCA-ATYPICAL <1:20 titer (Neg:<1:20); ANTI DOUBLE STRAND-DNA AB 1 IU/mL (0-9); ANTINUCLEAR ANTIBODIES DIRECT Positive (Negative); COPPER PLASMA 92 ug/dL (72-166); CYTOPLASMIC NEUTROP AB ANCA-C <1:20 titer (Neg:<1:20); LEAD BLOOD ADULT <1 ug/dL (0-19); Lyme Disease IgG/IgM Antibodie <0.91 ISR (0.00-0.90); Lyme Disease IgM Ab Quantitati <0.80 index (0.00-0.79); MERCURY LEVEL None Detected ug/L (0.0-14.9); PERINUCLEAR AB ANCA-P <1:20 titer (Neg:<1:20); RNP ANTIBODIES <0.2 AI (0.0-0.9); SJOGREN'S ANTI SS-A <0.2 AI (0.0-0.9); SJOGREN'S ANTI SS-B 0.2 AI (0.0-0.9); SMITH ANTIBODIES <0.2 AI (0.0-0.9)
[2018-06-19 10:06] LABS: DRVV SCREEN 43.9 SEC
[2018-06-19 10:12] LABS: PTT LUPUS TYPE ANTICOAG SCREEN 1.1 (0-1.2)
[2018-06-20 08:06] LABS: CERULOPLASMIN 24.2 mg/dL (16.0-31.0); VITAMIN B1 LEVEL WHOLE BLOOD 114.7 nmol/L (66.5-200.0); VITAMIN B6,PYRIDOXAL PHOSPHATE 4.2 ug/L (5.3-46.7)
[2018-06-20 11:40] LABS: ALBUMIN % 53.7 % (55.8-66.1); ALPHA-1-GLOBULIN % 3.9 % (2.9-4.9)
[2018-06-20 11:41] LABS: ALBUMIN 4.08 GM/DL (3.29-5.55); ALPHA-2-GLOBULINS % 11.9 % (7.1-11.8); BETA-1-GLOBULINS 0.57 GM/DL (0.28-0.60); BETA-1-GLOBULINS % 7.5 % (4.7-7.2); BETA-2-GLOBULINS 0.82 GM/DL (0.19-0.55); BETA-2-GLOBULINS % 10.8 % (3.2-6.5); GAMMA GLOBULIN % 12.2 % (11.1-18.8); GAMMA GLOBULINS 0.93 GM/DL (0.65-1.58)
== END ==
LOC: M LABNEURO 10:46
DX: G62.9 Polyneuropathy, unspecified (principal)
CPT/HCPCS: 82525

== ENCOUNTER 2018-07-30 11:36 | Emergency (ER) | payer MEDICARE, OTHER ==
[2018-07-30] MEDS: MORPHINE 4 MG/ML 1ML VIAL/SYRINGE (J2270) IV (12:15)
[2018-07-30 12:22] LABS: BASO % 0.6 % (0.0-1.0); EOS # 0.5 10^3/uL (0.0-0.50); EOS % 6.7 % (0.0-3.0); HEMATOCRIT 41.8 % (42.0-52.0); HEMOGLOBIN 14.2 g/dl (13.5-17.5); IMMATURE GRANULOCYTE % 0.1 % (0-3.0); LYMPH # 1.7 10^3/uL (1.5-4.5); LYMPH % 23.9 % (24.0-44.0); MEAN CORPUSCULAR HEMOGLOBIN 30.4 pg (27.0-33.0); MEAN CORPUSCULAR VOLUME 89.5 fl (80.0-96.0); MONO # 0.7 10^3/uL (0.0-0.8); MONO % 9.3 % (0.0-5.0); NEUTROPHILS # 4.2 10^3/uL (1.8-7.7); NEUTROPHILS % 59.4 % (36.0-66.0); PLATELET COUNT, AUTOMATED 202 10^3/uL (150-450); RED BLOOD COUNT 4.67 10^6/uL (4.30-6.10); RED CELL DISTRIBUTION WIDTH 13.2 % (11.5-14.5); WHITE BLOOD COUNT 7.1 10^3/uL (4.0-10.0)
[2018-07-30 12:58] LABS: ALBUMIN 3.4 GM/DL (3.2-5.2); ALBUMIN/GLOBULIN RATIO 0.79 (1.00-1.93); ALKALINE PHOSPHATASE 83 U/L (45-117); ALT/SGPT 53 U/L (12-78); AMYLASE 41 U/L (25-115); ANION GAP 12 MEQ/L (8-16); AST/SGOT 63 U/L (7-37); BILIRUBIN,TOTAL 0.4 MG/DL (0.2-1.0); BLOOD UREA NITROGEN 17 MG/DL (7-18); C REACTIVE PROTEIN QUANTITATIV 1.59 MG/DL (0.00-0.30); CALCIUM LEVEL 9.6 MG/DL (8.8-10.2); CARBON DIOXIDE LEVEL 23 MEQ/L (21-32); CHLORIDE LEVEL 104 MEQ/L (98-107); CREATININE FOR GFR 1.21 MG/DL (0.70-1.30); GLOMERULAR FILTRATION RATE > 60.0 (>49); GLUCOSE, FASTING 219 MG/DL (70-100); LIPASE 158 U/L (73-393); POTASSIUM SERUM 3.9 MEQ/L (3.5-5.1); SODIUM LEVEL 139 MEQ/L (136-145); TOTAL PROTEIN 7.7 GM/DL (6.4-8.2)
[2018-07-30 12:59] LABS: LACTIC ACID SEPSIS PROTOCOL 2.7 MMOL/L (0.4-2.0)
[2018-07-30] MEDS ORDERED: ISOVUE-370 76% 100ML VIAL (Q9967) As Ordered (13:06)
[2018-07-30] MEDS: NS 1,000 ML IV (13:28)
[2018-07-30 14:00] LABS: KETONE, URINE AUTO RFX NEGATIVE (NEGATIVE); LEUKOCYTE ESTERASE UR AUTO RFX NEGATIVE (NEGATIVE); MUCUS, URINE RFX SMALL (NEGATIVE); NITRITE, URINE AUTO RFX NEGATIVE (NEGATIVE); RBC, URINE AUTO RFX 1 /HPF (0-3); SPECIFIC GRAVITY UR AUTO RFX 1.022 (1.002-1.035); SQUAM EPITHELIAL CELL UR AURFX 0 /HPF (0-6); WBC, URINE AUTO RFX 2 /HPF (0-3)
[2018-07-30] MEDS: NS 500 ML IV (15:32)
[2018-07-30] MEDS: ACETAMINOPHEN 325 MG TAB PO (15:42)
[2018-07-30 15:48] LABS: LACTIC ACID SEPSIS PROTOCOL 1.7 MMOL/L (0.4-2.0)
== END 2018-07-30 16:47 | disposition home or self-care (01) ==
LOC: M ED 11:36
DX: R10.32 Left lower quadrant pain (principal); R19.7 Diarrhea, unspecified; E11.9 Type 2 diabetes mellitus without complications; I11.0 Hypertensive heart disease with heart failure; I50.9 Heart failure, unspecified; K21.9 Gastro-esophageal reflux disease without esophagitis; N40.0 Benign prostatic hyperplasia without lower urinary tract symptoms; G47.33 Obstructive sleep apnea (adult) (pediatric); G89.29 Other chronic pain; M54.9 Dorsalgia, unspecified; Z87.19 Personal history of other diseases of the digestive system; Z88.0 Allergy status to penicillin; Z79.899 Other long term (current) drug therapy; Z79.890 Hormone replacement therapy; Z79.4 Long term (current) use of insulin; Z88.1 Allergy status to other antibiotic agents; Z88.2 Allergy status to sulfonamides; Z87.891 Personal history of nicotine dependence
CPT/HCPCS: Q9967

== ENCOUNTER → 2018-09-14 | Outpatient (CLI) | payer MEDICARE, OTHER | LOC: M PLARAD 13:00 | DX: M54.2 Cervicalgia (principal) ==

== ENCOUNTER → 2018-10-19 | Outpatient (REF) | payer MEDICARE, OTHER ==
[2018-10-19 17:38] LABS: IMMUNOGLOBULIN A 929 MG/DL (70-400)
[2018-10-23 00:06] LABS: TISSUE TRANSGLUTAMINASE IgA 4 U/mL (0-3)
[2018-10-23 00:06] LABS: ENDOMYSIAL ABY IgA Negative (Negative)
== END ==
LOC: M LAB REF 16:14
DX: R11.0 Nausea (principal)
CPT/HCPCS: 86255

== ENCOUNTER → 2018-12-11 | Outpatient (REF) | payer MEDICARE, OTHER ==
[~2018-12-11] MED LIST changes: +BENZ200C70 PO; +BYST2.5T2 PO; +FLOM0.4C39 PO; -FLOM5CAP PO; -GABA-282 PO; +GABA-843 PO; +INSUHUMDS SC; +IRBE150T12 PO; +OSEL75CA PO; +TORS20TA2 PO; +TOUJ300I2 SC; +VENTAER IN
[2018-12-14 00:06] LABS: Lyme Disease IgG/IgM Antibodie <0.91 ISR (0.00-0.90); Lyme Disease IgM Ab Quantitati <0.80 index (0.00-0.79)
== END ==
LOC: M LAB REF 16:22
PROVIDERS: ATTEND Internal Medicine
DX: Z11.59 Encounter for screening for other viral diseases (principal)

== ENCOUNTER 2019-02-28 14:30 | Emergency (ER) | payer MEDICARE, OTHER ==
[~2019-02-28] VITALS: Ht 182.9 cm; Wt 138.6 kg
[~2019-02-28 14:30] MED LIST changes: +ACET-716 PO; -ACET30TAB PO
[2019-02-28] MEDS ORDERED: ZOLP10TA2 (14:38)
[2019-02-28 15:01] LABS: BASO # 0.1 10^3/uL (0.0-0.2); BASO % 0.8 % (0.0-1.0); EOS # 0.3 10^3/uL (0.0-0.50); EOS % 3.3 % (0.0-3.0); HEMATOCRIT 40.3 % (42.0-52.0); HEMOGLOBIN 13.3 g/dl (13.5-17.5); LYMPH # 1.8 10^3/uL (1.5-4.5); LYMPH % 20.6 % (24.0-44.0); MEAN CORPUSCULAR HEMOGLOBIN 29.9 pg (27.0-33.0); MEAN CORPUSCULAR VOLUME 90.6 fl (80.0-96.0); MONO # 0.7 10^3/uL (0.0-0.8); NEUTROPHILS # 5.9 10^3/uL (1.8-7.7); NEUTROPHILS % 67.1 % (36.0-66.0); PLATELET COUNT, AUTOMATED 204 10^3/uL (150-450); RED BLOOD COUNT 4.45 10^6/uL (4.30-6.10); WHITE BLOOD COUNT 8.8 10^3/uL (4.0-10.0)
--- NOTE | 2019-02-28 15:15 | REP ---
Right great toe four views: There is a comminuted fracture in the proximal phalange shaft. There is no dislocation. There are no calcifications or foreign bodies. Electronically Signed by Prieto Guerra MD 02/28/2019 03:07 P
[2019-02-28 15:26] LABS: C REACTIVE PROTEIN QUANTITATIV 0.54 MG/DL (0.00-0.30); CALCIUM LEVEL 9.2 MG/DL (8.8-10.2); CREATININE FOR GFR 1.35 MG/DL (0.70-1.30); GLOMERULAR FILTRATION RATE 55.6 (>42); POTASSIUM SERUM 4.4 MEQ/L (3.5-5.1)
[2019-02-28] MEDS ORDERED: MUPIROCIN 2% OINT 22 GM TUBE TOP ONE (15:30)
[2019-02-28] MEDS ORDERED: CLEO300C2 PO (15:32)
[2019-02-28] MEDS ORDERED: BACIOIN5 OP (15:32)
[2019-02-28 15:38] VITALS: BP 144/78
[2019-02-28 19:27] LABS: ERYTHROCYTE SEDIMENTATION RATE 36 mm/hr (0-20)
== END 2019-02-28 15:55 | disposition home or self-care (01) ==
LOC: M ED 14:30
DX: R23.8 Other skin changes (principal); S92.411A Displaced fracture of proximal phalanx of right great toe, initial encounter for closed fracture; W22.8XXA Striking against or struck by other objects, initial encounter; Y92.018 Other place in single-family (private) house as the place of occurrence of the external cause; E11.9 Type 2 diabetes mellitus without complications; Z79.899 Other long term (current) drug therapy; Z79.4 Long term (current) use of insulin; Z88.0 Allergy status to penicillin; Z88.1 Allergy status to other antibiotic agents; Z88.2 Allergy status to sulfonamides

== ENCOUNTER 2019-04-01 00:07 | Emergency (ER) | payer MEDICARE, OTHER ==
[~2019-04-01] VITALS: Ht 182.9 cm; Wt 140.9 kg
[~2019-04-01 00:07] MED LIST changes: +BACIOIN5 OP; +ZOLP10TA2
[2019-04-01 01:02] LABS: BASO # 0.1 10^3/uL (0.0-0.2); BASO % 0.7 % (0.0-1.0); EOS # 0.3 10^3/uL (0.0-0.50); EOS % 2.9 % (0.0-3.0); HEMATOCRIT 39.8 % (42.0-52.0); HEMOGLOBIN 13.4 g/dl (13.5-17.5); INFLUENZA A AMPLIFICATION NEGATIVE (NEGATIVE); INFLUENZA B AMPLIFICATION NEGATIVE (NEGATIVE); LYMPH # 2.2 10^3/uL (1.5-4.5); LYMPH % 22.2 % (24.0-44.0); MEAN CORPUSCULAR HEMOGLOBIN 29.9 pg (27.0-33.0); MEAN CORPUSCULAR HGB CONC 33.7 g/dl (32.0-36.5); MEAN CORPUSCULAR VOLUME 88.8 fl (80.0-96.0); MONO # 0.7 10^3/uL (0.0-0.8); MONO % 7.1 % (0.0-5.0); NEUTROPHILS # 6.6 10^3/uL (1.8-7.7); NEUTROPHILS % 66.8 % (36.0-66.0); PLATELET COUNT, AUTOMATED 208 10^3/uL (150-450); RED BLOOD COUNT 4.48 10^6/uL (4.30-6.10); WHITE BLOOD COUNT 9.8 10^3/uL (4.0-10.0)
[2019-04-01] MEDS ORDERED: HUMA100I3 SC (01:05)
[2019-04-01] MEDS ORDERED: GABA-843 PO (01:05)
[2019-04-01] MEDS ORDERED: ZOLP5TAB PO (01:05)
[2019-04-01] MEDS ORDERED: IPRATROPIUM 0.5MG/ALBUTEROL 2.5MG INH SOL UD 3ML (DUONEB)(J7620) NEB ONE (01:15)
[2019-04-01 01:29] LABS: BLOOD UREA NITROGEN 19 MG/DL (7-18); CARBON DIOXIDE LEVEL 27 MEQ/L (21-32); CHLORIDE LEVEL 99 MEQ/L (98-107); CK-MB VALUE MASS < 1.0 NG/ML (<3.6); CPK CREATINE PHOSPHOKINASE 114 U/L (39-308); CREATININE FOR GFR 1.57 MG/DL (0.70-1.30); GLOMERULAR FILTRATION RATE 46.7 (>42); GLUCOSE, FASTING 331 MG/DL (70-100); MB/CK RELATIVE INDEX 0.88 (< OR =4); POTASSIUM SERUM 4.3 MEQ/L (3.5-5.1); SODIUM LEVEL 137 MEQ/L (136-145); TROPONIN I < 0.02 NG/ML (< 0.10)
[2019-04-01 04:01] VITALS: BP 172/73
[2019-04-01] MEDS ORDERED: PRED20TA PO (04:04)
[2019-04-01] MEDS ORDERED: ALBUTEROL 90 MCG/ACT 8GM HFA INHALER INH ONE (04:15)
[2019-04-01] MEDS ORDERED: predniSONE 20 MG TAB PO ONE (04:15)
--- NOTE | 2019-04-01 09:12 | REP ---
CHEST, TWO VIEWS: COMPARISON: 01/02/2018. There is no evidence of acute infiltrate. No pleural effusion is seen. The heart is normal in size. The mediastinal silhouette is unremarkable. The visualized osseous structures are intact. There is calcification of the thoracic aorta. There are degenerative changes of the spine. IMPRESSION: No acute pulmonary disease. Electronically Signed by Prieto Engel MD 04/01/2019 06:38 P
--- NOTE | 2019-04-01 23:33 | ECGEPIP ---
Stationary ECG Study [facility] - ED Test Date: 2019-04-01 Pat Name: MAC GROSS Department: Room: - Gender: M Ediphone Operator: PRISCILLA : 1950 Requested By: NASIMA Menjivar Order Number: [id number] Reading MD: Chente Hopkins Measurements Intervals [place] Rate: 74 P: 53 MT: 188 QRS: -29 QRSD: 92 T: 6 QT: 383 QTc: 425 Interpretive Statements SINUS RHYTHM BORDERLINE LEFT AXIS DEVIATION LOW QRS VOLTAGE IN PRECORDIAL LEADS POSSIBLE RIGHT VENTRICULAR CONDUCTION DELAY Similar to tracing done 02-14-19 Electronically Signed On 04-01-2019 23:33:10 EDT by Chente Hopkins
== END 2019-04-01 04:23 | disposition home or self-care (01) ==
LOC: M ED 00:07
DX: J20.9 Acute bronchitis, unspecified (principal); Z20.9 Contact with and (suspected) exposure to unspecified communicable disease; Z87.891 Personal history of nicotine dependence; Z79.4 Long term (current) use of insulin; Z79.899 Other long term (current) drug therapy; Z88.0 Allergy status to penicillin; Z88.2 Allergy status to sulfonamides; Z88.8 Allergy status to other drugs, medicaments and biological substances

== ENCOUNTER 2019-04-25 11:22 | Emergency (ER) | payer MEDICARE, OTHER ==
[~2019-04-25] VITALS: Ht 180.3 cm; Wt 145.7 kg
[~2019-04-25 11:22] MED LIST changes: +HUMA100I3 SC; +PRED20TA PO; +ZOLP5TAB PO
[2019-04-25] MEDS ORDERED: SPIR-10 (11:33)
[2019-04-25 12:22] LABS: BASO # 0.1 10^3/uL (0.0-0.2); BASO % 0.7 % (0.0-1.0); EOS # 0.3 10^3/uL (0.0-0.50); EOS % 4.3 % (0.0-3.0); HEMATOCRIT 39.3 % (42.0-52.0); HEMOGLOBIN 13.3 g/dl (13.5-17.5); LYMPH # 2.2 10^3/uL (1.5-4.5); LYMPH % 29.2 % (24.0-44.0); MEAN CORPUSCULAR HEMOGLOBIN 30.4 pg (27.0-33.0); MEAN CORPUSCULAR HGB CONC 33.8 g/dl (32.0-36.5); MEAN CORPUSCULAR VOLUME 89.7 fl (80.0-96.0); MONO # 0.5 10^3/uL (0.0-0.8); MONO % 7.1 % (0.0-5.0); NEUTROPHILS # 4.4 10^3/uL (1.8-7.7); NEUTROPHILS % 58.4 % (36.0-66.0); PLATELET COUNT, AUTOMATED 212 10^3/uL (150-450); RED BLOOD COUNT 4.38 10^6/uL (4.30-6.10); WHITE BLOOD COUNT 7.5 10^3/uL (4.0-10.0)
[2019-04-25 12:43] LABS: ERYTHROCYTE SEDIMENTATION RATE 56 mm/hr (0-20)
[2019-04-25 12:56] LABS: BLOOD UREA NITROGEN 17 MG/DL (7-18); C REACTIVE PROTEIN QUANTITATIV 1.01 MG/DL (0.00-0.30); CALCIUM LEVEL 9.3 MG/DL (8.8-10.2); CARBON DIOXIDE LEVEL 27 MEQ/L (21-32); CHLORIDE LEVEL 107 MEQ/L (98-107); GLOMERULAR FILTRATION RATE > 60.0 (>42); GLUCOSE, FASTING 240 MG/DL (70-100); POTASSIUM SERUM 4.6 MEQ/L (3.5-5.1); SODIUM LEVEL 138 MEQ/L (136-145); URIC ACID 5.9 MG/DL (3.5-7.2)
[2019-04-25] MEDS ORDERED: CEFD1CAP8 PO (13:11)
[2019-04-25] MEDS ORDERED: KEFL500C17 PO (13:16)
[2019-04-25 13:18] VITALS: BP 149/74
== END 2019-04-25 13:18 | disposition home or self-care (01) ==
LOC: M ED 11:22
DX: L03.031 Cellulitis of right toe (principal); E11.9 Type 2 diabetes mellitus without complications; I11.0 Hypertensive heart disease with heart failure; I50.9 Heart failure, unspecified; M10.9 Gout, unspecified; E78.5 Hyperlipidemia, unspecified; K21.9 Gastro-esophageal reflux disease without esophagitis; Z79.899 Other long term (current) drug therapy; Z79.890 Hormone replacement therapy; Z79.4 Long term (current) use of insulin; Z88.0 Allergy status to penicillin; Z88.1 Allergy status to other antibiotic agents; Z88.2 Allergy status to sulfonamides; Z87.891 Personal history of nicotine dependence

== ENCOUNTER → 2019-09-06 | Outpatient (REF) | payer MEDICARE, OTHER ==
[~2019-09-06] MED LIST changes: +AMLO10CA22 PO; -AMLO10CA29 PO; -BISO5TAB5 PO; +BISO5TAB9 PO; +CEFD1CAP8 PO; +KEFL500C17 PO; +SPIR-10
[2019-09-06 13:29] LABS: C REACTIVE PROTEIN QUANTITATIV 0.75 MG/DL (0.00-0.30)
== END ==
LOC: M LAB REF 13:06
PROVIDERS: ATTEND Registered Nurse
DX: R10.84 Generalized abdominal pain (principal)

== ENCOUNTER → 2019-10-24 | Outpatient (CLI) | payer MEDICARE, OTHER ==
--- NOTE | 2019-10-24 14:37 | REP ---
MODIFIED BARIUM SWALLOW: HISTORY: Pharyngeal phase dysphasia. Question aspiration. Gastroesophageal reflux disease. TECHNIQUE: Lateral cine fluoroscopy is performed of the oropharyngeal phase of barium swallow in conjunction with the swallowing therapist. The patient ingested various consistencies of barium labeled product. Fluoroscopy time was 1.1 minutes. FINDINGS: With liquid phase barium swallow, there was repetitive laryngeal penetration. With several of these swallows showing laryngeal penetration, the patient was observed to have a cough reflex. No tracheal aspiration was documented fluoroscopically. There was no laryngeal penetration with swallowing in the chin tuck position. The more viscus oral preparations did not produce penetration or aspiration although throat clearing and coughing was observed after one of the solid food swallows. IMPRESSION: Laryngeal penetration with cough reflex seen with liquid barium. Electronically Signed by Bandar Randall MD 10/24/2019 02:37 P
== END ==
LOC: M ST 11:52
PROVIDERS: ATTEND Otolaryngology
DX: R13.13 Dysphagia, pharyngeal phase (principal); K21.9 Gastro-esophageal reflux disease without esophagitis

== ENCOUNTER 2019-12-23 09:41 | Day surgery (SDC) | payer MEDICARE, OTHER ==
[~2019-12-23] VITALS: Ht 180.3 cm; Wt 141.1 kg
[~2019-12-23 09:41] MED LIST changes: +BISO5TAB14 PO; -BISO5TAB9 PO; -IRBE150T12 PO; +IRBE150T7 PO; +NS 1,000 ML IV ONE
[2019-12-23] MEDS ORDERED: LIDOCAINE 2% INJ 100 MG/5 ML SDV (FOR ANES.) As Ordered ONE (10:41)
[2019-12-23] MEDS ORDERED: propofoL 200 MG/20 ML VIAL As Ordered ONE ×2 (10:41→11:27)
--- NOTE | 2019-12-23 10:54 | ROOR ---
Patient Name: Alcon Lock Procedure Date: 12/23/2019 10:38 AM Date of : 1950 Age: 69 Room: [facility] Gender: Male Note Status: Finalized Procedure: Upper Endoscopy + Biopsies Indications: Heartburn, Exclusion of Sunshine's esophagus Providers: Artur Lee MD Referring MD: BREONNA LAM JR, MD Requesting Provider: Medicines: Monitored Anesthesia Care Complications: No immediate complications. Procedure: Pre-Anesthesia Assessment: - The heart rate, respiratory rate, oxygen saturations, blood pressure, adequacy of pulmonary ventilation, and response to care were monitored throughout the procedure. The Endoscope was introduced through the mouth, and advanced to the second part of duodenum. The upper GI endoscopy was accomplished without difficulty. The patient tolerated the procedure well. Findings: The Z-line was variable and was found 45 cm from the incisors. Multiple biopsies were obtained with cold forceps for evaluation to rule out Sunshine's Esophagus randomly at the gastroesophageal junction. A small hiatal hernia was present. Multiple medium pedunculated and sessile fundic gland polyps with no stigmata of recent bleeding were found on the greater curvature of the stomach. The exam of the duodenum was otherwise normal. Impression: - Z-line variable, 45 cm from the incisors. - Small hiatal hernia. - Multiple fundic gland polyps. - Multiple biopsies were obtained at the gastroesophageal junction. - The examination was otherwise normal. Recommendation: - Patient has a contact number available for emergencies. The signs and symptoms of potential delayed complications were discussed with the patient. Return to normal activities tomorrow. Written discharge instructions were provided to the patient. - High fiber diet. - Discharge patient to home. - Follow an antireflux regimen. - Continue present medications. - Await pathology results. - Telephone GI clinic for pathology results in 1 week. - Return to referring physician. - The findings and recommendations were discussed with the patient's family. Artur Lee MD Artur Lee MD 12/23/2019 10:53:59 AM Electronically signed by Artur Lee MD Number of Addenda: 0 Note Initiated On: 12/23/2019 10:38 AM Estimated Blood Loss: Estimated blood loss: none.
--- NOTE | 2019-12-23 11:15 | ROOR ---
Patient Name: Alcon Lock Procedure Date: 12/23/2019 10:38 AM Date of : 1950 Age: 69 Room: [facility] Gender: Male Note Status: Finalized Procedure: Total Colonoscopy to Cecum + Cold Snare Polypectomy + Hemoclips Indications: High risk colon cancer surveillance: Personal history of colonic polyps, Incidental - Change in bowel habits Providers: Artur Lee MD Referring MD: BREONNA LAM JR, MD Requesting Provider: Medicines: Monitored Anesthesia Care Complications: No immediate complications. Procedure: Pre-Anesthesia Assessment: - The heart rate, respiratory rate, oxygen saturations, blood pressure, adequacy of pulmonary ventilation, and response to care were monitored throughout the procedure. The Colonoscope was introduced through the anus and advanced to the cecum, identified by appendiceal orifice and ileocecal valve. The colonoscopy was performed without difficulty. The patient tolerated the procedure well. The quality of the bowel preparation was excellent. Findings: The perianal and digital rectal examinations were normal. Hemorrhoids were found during retroflexion. The hemorrhoids were small and Grade I (internal hemorrhoids that do not prolapse). Multiple small and large-mouthed diverticula were found in the recto-sigmoid colon, sigmoid colon and descending colon. Multiple sessile polyps were found in the rectum. The polyps were small in size. These polyps were removed with a cold snare. Resection and retrieval were complete. To prevent bleeding after the polypectomy, one hemostatic clip was successfully placed (MR conditional). There was no bleeding at the end of the procedure. The exam was otherwise without abnormality on direct and retroflexion views. Impression: - Hemorrhoids. - Diverticulosis in the recto-sigmoid colon, in the sigmoid colon and in the descending colon. - Multiple small polyps in the rectum, removed with a cold snare. Resected and retrieved. Clip (MR conditional) was placed. - The examination was otherwise normal on direct and retroflexion views. - The exam was otherwise normal to the cecum. Recommendation: - Patient has a contact number available for emergencies. The signs and symptoms of potential delayed complications were discussed with the patient. Return to normal activities tomorrow. Written discharge instructions were provided to the patient. - High fiber diet. - Discharge patient to home. - Continue present medications. - Await pathology results. - Telephone GI clinic for pathology results in 1 week. - Repeat colonoscopy in 5 years for surveillance based on pathology results. - Return to referring physician. - The findings and recommendations were discussed with the patient's family. Artur Lee MD Artur Lee MD 12/23/2019 11:14:42 AM Electronically signed by Artur Lee MD Number of Addenda: 0 Note Initiated On: 12/23/2019 10:38 AM Estimated Blood Loss: Estimated blood loss: none.
[2019-12-23 11:30] VITALS: BP 165/88
== END 2019-12-23 13:15 | disposition home or self-care (01) ==
LOC: M OPP 09:41
PROVIDERS: ATTEND Internal Medicine Gastroenterology
DX: D12.8 Benign neoplasm of rectum (principal); Z86.010 Personal history of colon polyps; K64.0 First degree hemorrhoids; K57.30 Diverticulosis of large intestine without perforation or abscess without bleeding; K22.8 Other specified diseases of esophagus; K44.9 Diaphragmatic hernia without obstruction or gangrene; K31.7 Polyp of stomach and duodenum; R12 Heartburn; I10 Essential (primary) hypertension; E10.9 Type 1 diabetes mellitus without complications; E03.9 Hypothyroidism, unspecified; K21.9 Gastro-esophageal reflux disease without esophagitis; G47.30 Sleep apnea, unspecified; N40.0 Benign prostatic hyperplasia without lower urinary tract symptoms; Z79.4 Long term (current) use of insulin; Z79.899 Other long term (current) drug therapy; Z88.0 Allergy status to penicillin; Z88.1 Allergy status to other antibiotic agents; Z88.2 Allergy status to sulfonamides

== ENCOUNTER 2020-01-28 23:46 | Emergency (ER) | payer MEDICARE, OTHER ==
[~2020-01-28] VITALS: Ht 182.9 cm; Wt 142.8 kg
[~2020-01-28 23:46] MED LIST changes: -NS 1,000 ML IV ONE
[2020-01-29 00:25] LABS: BASO # 0.1 10^3/uL (0.0-0.2); BASO % 0.9 % (0.0-1.0); EOS # 0.6 10^3/uL (0.0-0.5); EOS % 5.2 % (0.0-3.0); HEMATOCRIT 43.4 % (42.0-52.0); HEMOGLOBIN 14.8 g/dl (13.5-17.5); LYMPH # 2.2 10^3/uL (1.5-5.0); LYMPH % 19.9 % (24.0-44.0); MEAN CORPUSCULAR HEMOGLOBIN 30.7 pg (27.0-33.0); MEAN CORPUSCULAR HGB CONC 34.1 g/dl (32.0-36.5); MONO # 0.8 10^3/uL (0.0-0.8); MONO % 7.5 % (0.0-5.0); NEUTROPHILS # 7.3 10^3/uL (1.5-8.5); NEUTROPHILS % 66.2 % (36.0-66.0); PLATELET COUNT, AUTOMATED 216 10^3/uL (150-450); RED BLOOD COUNT 4.82 10^6/uL (4.30-6.10)
[2020-01-29 00:34] LABS: BLOOD UREA NITROGEN 20 MG/DL (7-18); CALCIUM LEVEL 10.1 MG/DL (8.8-10.2); CARBON DIOXIDE LEVEL 28 MEQ/L (21-32); CHLORIDE LEVEL 103 MEQ/L (98-107); CK-MB VALUE MASS < 1.0 NG/ML (<3.6); CPK CREATINE PHOSPHOKINASE 107 U/L (39-308); CREATININE FOR GFR 1.36 MG/DL (0.70-1.30); GLOMERULAR FILTRATION RATE 55.2 (>42); GLUCOSE, FASTING 250 MG/DL (70-100); MB/CK RELATIVE INDEX 0.93 (< OR =4); POTASSIUM SERUM 3.9 MEQ/L (3.5-5.1); SODIUM LEVEL 136 MEQ/L (136-145); TROPONIN I < 0.02 NG/ML (< 0.10)
[2020-01-29] MEDS ORDERED: CLINDAMYCIN 150 MG CAP PO ONE (01:00)
[2020-01-29] MEDS ORDERED: CLEO300C2 PO (01:10)
[2020-01-29 01:16] VITALS: BP 149/69
--- NOTE | 2020-01-29 07:53 | REP ---
Portable chest x-ray: Single view. History: Chest pain. Comparison chest x-ray: April 01, 2019. Findings: Heart is not enlarged. The lungs are somewhat hyperinflated. There is chronic pleural thickening bilaterally, right greater than left unchanged. There are degenerative changes in the thoracic spine. Pulmonary vasculature is not increased. No infiltrate is seen. There is vascular calcification in the thoracic aorta. Monitoring electrodes are seen. Impression: Hyperinflation. No acute disease. Electronically Signed by Bandar Randall MD 01/29/2020 07:44 A
--- NOTE | 2020-01-29 12:19 | ECGEPIP ---
[facility] - ED Test Date: 2020-01-29 Pat Name: MAC GROSS Department: Room: - Gender: Male Zig Zag Stitcher: lr : 1950 Requested By: MAMIE Fontana Order Number: [id number] Reading MD: Kelvin Kendall Measurements Intervals [place] Rate: 83 P: 43 AR: 167 QRS: -34 QRSD: 95 T: 4 QT: 376 QTc: 444 Interpretive Statements SINUS RHYTHM WITH OCCASIONAL VENTRICULAR PREMATURE COMPLEXES BORDERLINE LEFT AXIS DEVIATION INCOMPLETE RIGHT BUNDLE BRANCH BLOCK SIMILAR TO 04/01/19 Electronically Signed on 01-29-2020 12:19:23 EDT by Kelvin Kendall
== END 2020-01-29 01:29 | disposition home or self-care (01) ==
LOC: M ED 23:46
DX: K04.7 Periapical abscess without sinus (principal); I45.19 Other right bundle-branch block; E11.9 Type 2 diabetes mellitus without complications; I10 Essential (primary) hypertension; Z87.891 Personal history of nicotine dependence; Z79.4 Long term (current) use of insulin; Z79.899 Other long term (current) drug therapy; Z88.0 Allergy status to penicillin; Z88.2 Allergy status to sulfonamides; Z88.1 Allergy status to other antibiotic agents

== ENCOUNTER 2020-05-01 15:28 | Emergency (ER) | payer MEDICARE, OTHER ==
[~2020-05-01] VITALS: Ht 182.9 cm; Wt 142.7 kg
--- NOTE | 2020-05-01 17:12 | REP ---
Duplex extremity venous ultrasound: Left lower extremity. History: Left lower extremity pain. Rule out DVT. Findings: The deep veins are anechoic and fully compressible from the groin to the popliteal fossa in the left lower extremity. Color flow imaging is homogeneous. Spectral Doppler interrogation demonstrates intact respiratory variation in flow and normal manual augmentation of flow. There is no evidence of deep vein thrombosis. Impression: Negative left lower extremity duplex venous ultrasound. No evidence of deep vein thrombosis. Electronically Signed by Bandar Randall MD 05/01/2020 05:01 P
--- NOTE | 2020-05-01 17:27 | REP ---
REASON FOR EXAM: Altered mental status. COMPARISON: 05/20/2011. TECHNIQUE: 4.5 mm contiguous transaxial sections were obtained from the skull base to the cerebral convexities with thin cuts through the posterior fossa without the administration of intravenous contrast. FINDINGS: The ventricles and sulci are consistent with the patient's age. There are no extra-axial fluid collections. There is no mass effect. The deep cerebral white matter is consistent with the patient's age. The orbital and petrous structures, cerebellopontine angles, and posterior fossa are unremarkable. The sella turcica, cavernous, and paracavernous structures are essentially unremarkable. The visualized portions of the paranasal sinuses and mastoid air cells are clear. Images of the skull base show no gross abnormality. IMPRESSION: Essentially unremarkable CT examination of the brain. There has been no significant change compared to the prior exam. Electronically Signed by Jose Francisco Shane DO 05/04/2020 07:42 A
--- NOTE | 2020-05-01 17:29 | REP ---
REASON: Altered mental status. COMPARISON: 01/28/2020. The technique utilized in obtaining the radiograph has magnified the cardiac silhouette and accentuated the interstitial markings. There is cardiomegaly accentuated by technique. There are chronic lung field changes status quo. There are no acute abnormalities. IMPRESSION: No acute disease. Electronically Signed by Jose Francisco Shane DO 05/04/2020 07:43 A
[2020-05-01 17:44] LABS: VENOUS BASE EXCESS 1.9 (-2.0-2.0); VENOUS HCO3 28.4 MEQ/L (23.0-27.0); VENOUS O2 SATURATION 61.6 % (60.0-80.0); VENOUS PARTIAL PRESSURE CO2 52.2 mmHg (38.0-50.0); VENOUS PARTIAL PRESSURE O2 32.7 mmHg (30.0-50.0); VENOUS PH 7.354 UNITS (7.330-7.430); VENOUS STANDARD HCO3 25.2 MEQ/L
[2020-05-01 17:46] LABS: BASO # 0.1 10^3/uL (0.0-0.2); BASO % 0.7 % (0.0-1.0); EOS # 0.4 10^3/uL (0.0-0.5); EOS % 2.7 % (0.0-3.0); HEMATOCRIT 42.1 % (42.0-52.0); HEMOGLOBIN 14.3 g/dl (13.5-17.5); LYMPH # 1.7 10^3/uL (1.5-5.0); LYMPH % 12.5 % (24.0-44.0); MEAN CORPUSCULAR HEMOGLOBIN 30.7 pg (27.0-33.0); MEAN CORPUSCULAR VOLUME 90.3 fl (80.0-96.0); MONO # 0.9 10^3/uL (0.0-0.8); MONO % 6.4 % (0.0-5.0); NEUTROPHILS # 10.4 10^3/uL (1.5-8.5); NEUTROPHILS % 77.3 % (36.0-66.0); PLATELET COUNT, AUTOMATED 230 10^3/uL (150-450); RED BLOOD COUNT 4.66 10^6/uL (4.30-6.10); WHITE BLOOD COUNT 13.5 10^3/uL (4.0-10.0)
[2020-05-01 18:13] LABS: OSMOLALITY SERUM 295 MOSM/KG (280-301)
[2020-05-01 18:15] LABS: ALBUMIN 3.7 GM/DL (3.2-5.2); ALT/SGPT 67 U/L (12-78); BILIRUBIN,DIRECT 0.1 MG/DL (0.0-0.2); BILIRUBIN,TOTAL 0.3 MG/DL (0.2-1.0); BLOOD UREA NITROGEN 24 MG/DL (7-18); CALCIUM LEVEL 10.7 MG/DL (8.8-10.2); CARBON DIOXIDE LEVEL 27 MEQ/L (21-32); CHLORIDE LEVEL 99 MEQ/L (98-107); CK-MB VALUE MASS 1.2 NG/ML (<3.6); CPK CREATINE PHOSPHOKINASE 164 U/L (39-308); GLOMERULAR FILTRATION RATE 53.2 (>42); GLUCOSE, FASTING 177 MG/DL (70-100); MB/CK RELATIVE INDEX 0.73 (< OR =4); POTASSIUM SERUM 4.3 MEQ/L (3.5-5.1); SODIUM LEVEL 131 MEQ/L (136-145); TOTAL PROTEIN 8.3 GM/DL (6.4-8.2); TROPONIN I < 0.02 NG/ML (< 0.10)
[2020-05-01 19:33] VITALS: O2SAT 95
[2020-05-01] MEDS ORDERED: ISOVUE-370 76% 100ML VIAL As Ordered ONE (19:47)
--- NOTE | 2020-05-01 20:44 | REPVR ---
PROCEDURE INFORMATION: Exam: CT Angiography Chest With Contrast Exam date and time: 05/01/2020 7:53 PM Age: 70 years old Clinical indication: Shortness of breath; Additional info: SOB TECHNIQUE: Imaging protocol: Computed tomographic angiography of the chest with intravenous contrast. 3D rendering: MIP and/or 3D reconstructed images were created by the technologist. Radiation optimization: All CT scans at this facility use at least one of these dose optimization techniques: automated exposure control; mA and/or kV adjustment per patient size (includes targeted exams where dose is matched to clinical indication); or iterative reconstruction. Contrast material: ISOVUE 370; Contrast volume: 75 ml; Contrast route: INTRAVENOUS (IV); COMPARISON: CR PORTABLE CHEST X-RAY 05/01/2020 4:01 PM FINDINGS: Pulmonary arteries: Normal. No pulmonary emboli. Aorta: Unremarkable. No aortic aneurysm. No aortic dissection. Lungs: Calcified granuloma right lower lobe. No infiltrates. Pleural space: Unremarkable. No pneumothorax. No pleural effusion. Heart: Unremarkable. No cardiomegaly. No pericardial effusion. Lymph nodes: Unremarkable. No enlarged lymph nodes. Liver: Liver is low in density. Bones/joints: Degenerative changes present in the dorsal spine.. No acute fracture. Soft tissues: Unremarkable. IMPRESSION: 1. No acute pulmonary embolism. 2. Hepatic steatosis. Electronically signed by: Tg Vasquez On 05/01/2020 20:44:17 PM
[2020-05-01 21:31] VITALS: BP 172/77
--- NOTE | 2020-05-02 08:06 | ECGEPIP ---
[facility] - ED Test Date: 2020-05-01 Pat Name: MAC GROSS Department: Room: - Gender: Male Spool Maker: : 1950 Requested By: Marilou Glover Order Number: [id number] Reading MD: Marilou Glover Measurements Intervals [place] Rate: 82 P: 54 [place]: 192 QRS: -20 QRSD: 96 T: 14 QT: 365 QTc: 428 Interpretive Statements SINUS RHYTHM POSSIBLE RIGHT VENTRICULAR CONDUCTION DELAY DECREASED ECTOPY 01/29/20 Electronically Signed on 05-02-2020 8:06:27 EDT by Marilou Glover
== END 2020-05-01 22:10 | disposition home or self-care (01) ==
LOC: M ED 15:28
DX: R06.02 Shortness of breath (principal); R05 Cough; M25.562 Pain in left knee; E11.9 Type 2 diabetes mellitus without complications; I10 Essential (primary) hypertension; I50.9 Heart failure, unspecified; J44.9 Chronic obstructive pulmonary disease, unspecified; E78.5 Hyperlipidemia, unspecified; G47.30 Sleep apnea, unspecified; N40.0 Benign prostatic hyperplasia without lower urinary tract symptoms; Z99.89 Dependence on other enabling machines and devices; Z79.899 Other long term (current) drug therapy; Z79.4 Long term (current) use of insulin; Z88.0 Allergy status to penicillin; Z88.1 Allergy status to other antibiotic agents; Z88.2 Allergy status to sulfonamides; Z87.891 Personal history of nicotine dependence
CPT/HCPCS: 36415; 70450; 71045; 71275; 80048; 80076; 81001; 82140; 82550; 82553; 82803; 83930; 84443; 84484; 85025; 87040; 87486; 87581; 87633; 87798; 93005; 93041; 93971; 99285; Q9967

== ENCOUNTER → 2020-06-19 | Outpatient (REF) | payer MEDICARE, OTHER ==
[2020-07-18 03:19] LABS: AMORPHOUS SEDIMENT SMALL (NEGATIVE); APPEARANCE, URINE TURBID (CLEAR); BACTERIA, URINE AUTO 2+ (NEGATIVE); BILIRUBIN, URINE AUTO NEGATIVE (NEGATIVE); BLOOD, URINE BLOOD NEGATIVE (NEGATIVE); COLOR, URINE YELLOW (YELLOW); GLUCOSE, URINE (UA) AUTO 3+ mg/dL (NEGATIVE); KETONE, URINE AUTO TRACE mg/dL (NEGATIVE); LEUKOCYTE ESTERASE, URINE AUTO TRACE (NEGATIVE); MUCUS, URINE SMALL (NEGATIVE); NITRITE, URINE AUTO NEGATIVE (NEGATIVE); PROTEIN, URINE AUTO 2+ mg/dL (NEGATIVE); RBC, URINE AUTO 5 /HPF (0-3); SQUAMOUS EPITHELIAL CELL UR AU 0 /HPF (0-6); UROBILINOGEN, URINE AUTO 0.2 mg/dL (0.0-2.0); WBC, URINE AUTO 50 /HPF (0-3)
== END ==
LOC: M SMT 09:46
PROVIDERS: ATTEND Nurse Practitioner Women's Health
DX: N39.0 Urinary tract infection, site not specified (principal)

== ENCOUNTER → 2020-07-02 | Outpatient (REF) | payer MEDICARE, OTHER ==
[2020-07-02 19:04] LABS: APPEARANCE, URINE CLEAR (CLEAR); BACTERIA, URINE AUTO NEGATIVE (NEGATIVE); BILIRUBIN, URINE AUTO NEGATIVE (NEGATIVE); BLOOD, URINE BLOOD NEGATIVE (NEGATIVE); COLOR, URINE YELLOW (YELLOW); GLUCOSE, URINE (UA) AUTO 3+ mg/dL (NEGATIVE); KETONE, URINE AUTO TRACE mg/dL (NEGATIVE); LEUKOCYTE ESTERASE, URINE AUTO NEGATIVE (NEGATIVE); NITRITE, URINE AUTO NEGATIVE (NEGATIVE); PROTEIN, URINE AUTO 3+ mg/dL (NEGATIVE); RBC, URINE AUTO 0 /HPF (0-3); SPECIFIC GRAVITY URINE AUTO 1.017 (1.002-1.035); SQUAMOUS EPITHELIAL CELL UR AU 0 /HPF (0-6); UROBILINOGEN, URINE AUTO 0.2 mg/dL (0.0-2.0); WBC, URINE AUTO 2 /HPF (0-3)
== END ==
LOC: M LAB REF 17:25
PROVIDERS: ATTEND Urology
DX: N39.0 Urinary tract infection, site not specified (principal)

== ENCOUNTER → 2020-09-28 | Outpatient (CLI) | payer MEDICARE, OTHER ==
--- NOTE | 2020-09-28 10:52 | REP ---
INDICATION: UPPER ABD PAIN. COMPARISON: None. TECHNIQUE: Real-time sonographic evaluation of right upper quadrant performed. FINDINGS: The gallbladder demonstrates no evidence of intraluminal sludge or calculi, wall thickening or pericholecystic fluid. There is no intrahepatic or extrahepatic biliary dilatation, common bile duct measures 6 mm in maximum diameter. The study is limited due to patient body habitus and bowel gas. The liver appears enlarged with diffuse increased heterogeneous echotexture compatible with diffuse fibrofatty infiltration. The length of the liver is approximately 20.7 cm. No gross mass is seen. The pancreas is not well visualized due to overlying bowel gas. The right kidney demonstrates no hydronephrosis, with a normal size of 14.4 cm in length. There is no hydronephrosis. Multiple small right renal cysts are present measuring up to 8 mm in diameter.No free fluid is seen. IMPRESSION: No gallstones, biliary dilatation or free fluid. Hepatomegaly with diffuse fibrofatty infiltration of the liver. Small right renal cysts. <Electronically signed by Prieto Engel > 09/28/20 1194
== END ==
LOC: M RAD 09:16
PROVIDERS: ATTEND Internal Medicine Gastroenterology
DX: R10.10 Upper abdominal pain, unspecified (principal); R16.0 Hepatomegaly, not elsewhere classified; K76.0 Fatty (change of) liver, not elsewhere classified; N28.1 Cyst of kidney, acquired

== ENCOUNTER → 2020-12-24 | Outpatient (CLI) | payer MEDICARE, OTHER ==
[~2020-12-24] MED LIST changes: +GABA-282 PO; -GABA-843 PO
[2020-12-24 12:33] LABS: CREATININE FOR GFR 1.5 MG/DL (0.70-1.30); GLOMERULAR FILTRATION RATE 49.1 (>42); POTASSIUM SERUM 4.1 MEQ/L (3.5-5.1)
== END ==
LOC: M LAB 11:24
PROVIDERS: ATTEND Physician Assistant
DX: I50.32 Chronic diastolic (congestive) heart failure (principal)

== ENCOUNTER → 2021-02-23 | Outpatient (CLI) | payer MEDICARE, OTHER ==
--- NOTE | 2021-02-23 14:16 | REP ---
INDICATION: COUGH AND SOB. COMPARISON: 05/01/2020 TECHNIQUE: PA and lateral FINDINGS: The superior mediastinal structures are midline. The cardiac silhouette is unremarkable in size, shape, and position. The diaphragmatic surfaces of the lungs are regular, and the costophrenic angles are clear. The lung arreaga are stable. Scattered fibrotic changes with basilar predominance are again noted. No acute patchy parenchymal opacities or pleural effusions have developed.. The imaged osseous structures are intact. IMPRESSION: There is no acute cardiopulmonary disease. <Electronically signed by Jose Francisco Shane > 02/23/21 [id number]
[2021-02-25 16:08] LABS: Lyme Disease IgG/IgM Antibodie <0.91 ISR (0.00-0.90); Lyme Disease IgM Ab Quantitati <0.80 index (0.00-0.79)
== END ==
LOC: M WUC 13:55
PROVIDERS: ATTEND Physician Assistant Medical
DX: R53.83 Other fatigue (principal); R06.02 Shortness of breath; R05 Cough

== ENCOUNTER 2021-03-17 09:11 | Inpatient (IN) | payer MEDICARE, OTHER ==
[~2021-03-17] VITALS: Ht 180.3 cm; Wt 132.7 kg
[2021-03-17] MEDS ORDERED: HUMA100I3 SC (09:21)
[2021-03-17] MEDS ORDERED: NS 1,000 ML IV SCH (09:50)
[2021-03-17 10:17] LABS: BASO # 0.1 10^3/uL (0.0-0.2); BASO % 0.5 % (0.0-1.0); EOS # 0.3 10^3/uL (0.0-0.5); EOS % 2.6 % (0.0-3.0); HEMOGLOBIN 13.2 g/dl (13.5-17.5); LYMPH # 2.3 10^3/uL (1.5-5.0); LYMPH % 23.9 % (24.0-44.0); MEAN CORPUSCULAR HEMOGLOBIN 30.7 pg (27.0-33.0); MEAN CORPUSCULAR HGB CONC 33.8 g/dl (32.0-36.5); MEAN CORPUSCULAR VOLUME 90.7 fl (80.0-96.0); MONO # 0.6 10^3/uL (0.0-0.8); MONO % 5.9 % (2.0-8.0); NEUTROPHILS # 6.4 10^3/uL (1.5-8.5); NEUTROPHILS % 66.7 % (36.0-66.0); PLATELET COUNT, AUTOMATED 204 10^3/uL (150-450); WHITE BLOOD COUNT 9.6 10^3/uL (4.0-10.0)
[2021-03-17] MEDS ORDERED: ASPIRIN 81 MG CHEW TABLET PO ONE (10:45)
[2021-03-17 10:47] LABS: ALBUMIN 3.2 GM/DL (3.2-5.2); ALT/SGPT 42 U/L (12-78); BILIRUBIN,DIRECT 0.1 MG/DL (0.0-0.2); BILIRUBIN,TOTAL 0.3 MG/DL (0.2-1.0); BLOOD UREA NITROGEN 24 MG/DL (7-18); CALCIUM LEVEL 9.6 MG/DL (8.8-10.2); CARBON DIOXIDE LEVEL 28 MEQ/L (21-32); CHLORIDE LEVEL 100 MEQ/L (98-107); CK-MB VALUE MASS < 1.0 NG/ML (<3.6); CPK CREATINE PHOSPHOKINASE 78 U/L (39-308); CREATININE FOR GFR 1.43 MG/DL (0.70-1.30); GLOMERULAR FILTRATION RATE 51.8 (>42); GLUCOSE, FASTING 271 MG/DL (70-100); LIPASE 140 U/L (73-393); MB/CK RELATIVE INDEX 1.28 (< OR =4); POTASSIUM SERUM 3.8 MEQ/L (3.5-5.1); SODIUM LEVEL 135 MEQ/L (136-145); TOTAL PROTEIN 7.5 GM/DL (6.4-8.2); TROPONIN I < 0.02 NG/ML (< 0.10)
[2021-03-17] MEDS ORDERED: ISOVUE-370 76% 100ML VIAL As Ordered ONE (10:53)
[2021-03-17] MEDS ORDERED: GI COCKTAIL 50ML BTL(HYOSCYAMINE/MAALOX/LIDOCAINE VISCOUS)(1:3:1) PO ONE (10:55)
--- NOTE | 2021-03-17 11:05 | REP ---
INDICATION: abdl pain. COMPARISON: 02/23/2021. TECHNIQUE: Single portable AP view of the chest was performed. FINDINGS: There is no acute infiltrate or pulmonary edema. Lungs are clear. The heart is not significantly enlarged. There is calcification of the thoracic aorta. There are degenerative changes of the spine. IMPRESSION: No acute pulmonary disease. <Electronically signed by Prieto Engel > 03/17/21 1108
--- NOTE | 2021-03-17 11:25 | REP ---
INDICATION: abdl pain (still has GB/appy), hx divertic COMPARISON: 09/10/2019. TECHNIQUE: CT Scan of the abdomen and pelvis was performed with intravenous administration of 100 cc of Isovue 370, without oral contrast. Sagittal and coronal reconstruction images are performed. FINDINGS: Lung bases: Unremarkable. Liver: There appears to be diffuse fatty infiltration of the liver Gallbladder: Unremarkable. Spleen: Normal. Adrenals: There is stable left adrenal gland thickening. Pancreas: Normal. Kidneys: Normal. Small and large bowel: There is sigmoid diverticulitis. There is no free air or abscess. Free fluid: None. Abdominal aorta: No aneurysm or dissection. Adenopathy: None. Appendix: Not inflamed. Osseous structures: There are mild degenerative changes without compression deformity. Pelvis: No mass. IMPRESSION: Sigmoid diverticulitis. No evidence of free air, free fluid or abscess. <Electronically signed by Prieto Engel > 03/17/21 1122
[2021-03-17] MEDS ORDERED: diphenhydrAMINE 50MG/ML VIAL (J1200) IV STA (11:31)
[2021-03-17] MEDS ORDERED: methylPREDNISolone 125MG 2ML VIAL IV ONE (11:35)
[2021-03-17] MEDS ORDERED: FAMOTIDINE IV BAG 20 MG in IV 1 EA IV ONE (11:35)
--- NOTE | 2021-03-17 12:23 | HPEPDOC ---
General Date of Admission 03/17/21 Date of Service: March 17, 2021 Chief Complaint The patient is a 71-year-old male admitted with a reason for visit of Abd Pain. Source: Patient Exam Limitations: No limitations History of Present Illness Patient is 71 years old male with past history of BPH, barrette's esophagus, type 2 diabetes, hypothyroidism presented to the hospital with diffuse abdominal pain. Patient stated that for past 5 days he has been having diffuse abdominal pain more severe in the left lower quadrant. Patient reported nausea and a few episodes of diarrhea. He noticed red blood in his stool around 3 days ago. Patient denied fever, chills. In ER patient was found to have no leukocytosis, creatinine 1.4. EKG negative for acute ischemic changes. CT abdomen and pelvis showed sigmoid diverticulitis. Home Medications Scheduled Escitalopram Oxalate (Lexapro) 10 Mg Tablet, 10 MG PO DAILY, (Reported) Finasteride (Finasteride) 5 Mg Tablet, 5 MG PO DAILY, (Reported) Gabapentin (Gabapentin) 300 Mg Capsule, 600 MG PO QHS, (Reported) Insulin Glargine,Hum.rec.anlog (Toujeo Max Solostar) 300 Unit/Ml Inj, 128 UNIT SC QHS, (Reported) Insulin Lispro (Humalog) 100 Unit/1 Ml Cartridge, 1 DOSE SC AC, (Reported) PER SLIDING SCALE Irbesartan (Irbesartan) 150 Mg Tab, 150 MG PO QHS, (Reported) Levothyroxine Sodium (Levoxyl) 112 Mcg Tablet, 112 MCG PO DAILY, (Reported) Nebivolol HCl (Bystolic) 5 Mg Tablet, 5 MG PO DAILY, (Reported) Pantoprazole Sodium (Protonix) 40 Mg Tab, 40 MG PO DAILY, (Reported) Spironolactone (Spironolactone) 25 Mg Tablet, 25 MG PO DAILY, (Reported) Tamsulosin Hcl (Tamsulosin HCl) 0.4 Mg Capsule, 0.4 MG PO DAILY, (Reported) Torsemide (Torsemide) 20 Mg Tablet, 20 MG PO DAILY, (Reported) Scheduled PRN Nitroglycerin (Nitroglycerin) 0.4 Mg Tab.subl, 0.4 MG SL NITRO PRN for CHEST PAIN, (Reported) Zolpidem Tartrate (Zolpidem Tartrate) 5 Mg Tablet, 10 MG PO QHS PRN for INSOMNIA, (Reported) Allergies Coded Allergies: Penicillins (Verified Allergy, Severe, anyphlaxis, 01/28/20) demeclocycline (Verified Allergy, Unknown, 01/28/20) erythromycin base (Verified Allergy, Unknown, 01/28/20) Sulfa (Sulfonamide Antibiotics) (Verified Adverse Reaction, Intermediate, VERY ILL, 01/28/20) Past Medical History Medical History BPH, barrette's esophagus, type 2 diabetes, hypothyroidism Surgical History Partial thyroidectomy Family History I personally reviewed family history and found not pertinent Social History * Smoker: former Smoker Alcohol: Denies Drugs: denies A-FIB/CHADSVASC A-FIB History Current/History of A-Fib/PAF?: No Current PO Anticoag Therapy: No Review of Systems Constitutional: Denies: Chills, Fever Eyes: Denies: Pain ENT: Denies: Head Aches Skin: Denies: Rash, Lesions Pulmonary: Denies: Dyspnea Cardiovascular: Denies: Chest Pain Gastrointestinal: Reports: Nausea, Abdominal Pain Genitourinary: Denies: Dysuria, Frequency Hematologic: Denies: Bruising Endocrine: Denies: Polydipsia Musculoskeletal: Denies: Neck Pain Neurological: Denies: Weakness Psych: Reports: Mood Normal Physical Examination General Exam: Positive: Alert, Cooperative Eye Exam: Positive: PERRLA Neck Exam: Positive: Supple; Negative: JVD Chest Exam: Positive: Clear to auscultation Heart Exam: Positive: Rate Normal Telemetry: Positive: No significant arrhythmia Abdomen Exam: Positive: BS Hypoactive, Tenderness (left lower quadrant) Extremity Exam: Negative: Clubbing Skin Exam: Positive: Nl turgor and temperature Neuro Exam: Positive: Normal Gait Psych Exam: Positive: Mental status NL Vital Signs Vital Signs Date Time Temp Pulse Resp B/P (MAP) Pulse Ox O2 Delivery O2 Flow Rate FiO2 03/17/21 11:16 149/87 (107) 03/17/21 11:11 51 98 03/17/21 10:09 98.0 16 Room Air Laboratory Data Labs 24H Laboratory Tests 2 03/17/21 10:01: Immature Granulocyte % (Auto) 0.4, Neutrophils (%) (Auto) 66.7H, Lymphocytes (%) (Auto) 23.9L, Monocytes (%) (Auto) 5.9, Eosinophils (%) (Auto) 2.6, Basophils ( %) (Auto) 0.5, Neutrophils # (Auto) 6.4, Lymphocytes # (Auto) 2.3, Monocytes # (Auto) 0.6, Eosinophils # (Auto) 0.3, Basophils # (Auto) 0.1, Nucleated Red Blood Cells % (auto) 0.0, Anion Gap 7L, Glomerular Filtration Rate 51.8, Lactic Acid Level 2.0, Calcium Level 9.6, Total Bilirubin 0.3, Direct Bilirubin 0.1, Aspartate Amino Transf (AST/SGOT) 36, Alanine Aminotransferase (ALT/SGPT) 42, Alkaline Phosphatase 87, Total Creatine Kinase 78, Creatine Kinase MB < 1.0, Creatine Kinase MB Relative Index 1.28, Troponin I < 0.02, Total Protein 7.5, Albumin 3.2, Albumin/Globulin Ratio 0.7, Lipase 140 CBC/BMP Laboratory Tests 03/17/21 10:01 Microbiology Microbiology 03/17/21 Blood Culture, Received Pending Assessment/Plan Patient is 71 years old male with past history of BPH, barrette's esophagus, type 2 diabetes, hypothyroidism presented to the hospital with diffuse abdominal pain. Patient stated that for past 5 days he has been having diffuse abdominal pain more severe in the left lower quadrant. Patient reported nausea and a few episodes of diarrhea. He noticed red blood in his stool around 3 days ago. Patient denied fever, chills. In ER patient was found to have no leukocytosis, creatinine 1.4. EKG negative for acute ischemic changes. CT abdomen and pelvis showed sigmoid diverticulitis. Problems (1) Diverticulitis Status: Acute Problem Text: CT showed sigmoid diverticulitis Pain management Clear liquid diet Cipro IV, Flagyl IV (2) Hypothyroidism Status: Chronic Problem Text: Continue levothyroxine (3) Diabetes mellitus Status: Chronic Problem Text: Diabetes diet Insulin sliding scale Detemir twice a day (4) Hyperlipidemia Status: Chronic Problem Text: Continue statin (5) HTN (hypertension) Status: Chronic Problem Text: Continue home cardioprotective medications (6) Obesities, morbid Status: Chronic Problem Text: BMI of 40.8 Complicated care (7) GUS treated with BiPAP Status: Chronic Problem Text: BiPAP daily at bedtime (8) LLQ abdominal pain Status: Acute Problem Text: Secondary to acute diverticulitis See above (9) Bradycardia Status: Acute Problem Text: Heart rate around 50s Most likely secondary to beta yusef I decreased the dose bystolic from 5 to 2.5 mg Plan / VTE VTE Prophylaxis Ordered?: Yes ANA HANNA DO March 17, 2021 12:23
[2021-03-17] MEDS ORDERED: FINA5TAB2 PO (12:24)
[2021-03-17] MEDS ORDERED: BYST5TAB2 PO (12:24)
[2021-03-17] MEDS ORDERED: NITR0.4S14 SL (12:24)
[2021-03-17] MEDS ORDERED: GABA-282 PO (12:24)
[2021-03-17] MEDS ORDERED: SPIR-10 PO (12:24)
[2021-03-17] MEDS ORDERED: TAMS1CAP17 PO (12:24)
[2021-03-17] MEDS ORDERED: LEVO112T25 PO (12:24)
[2021-03-17] MEDS ORDERED: LEXA1TAB PO (12:24)
[2021-03-17] MEDS ORDERED: DEXTROSE 50% 50 ML SYRINGE IV PRN (12:25)
[2021-03-17] MEDS ORDERED: zolPIDEM TARTRATE 5 MG TAB PO PRN (12:25)
[2021-03-17] MEDS ORDERED: GLUCAGON INJ 1MG VIAL SC PRN (12:25)
[2021-03-17] MEDS ORDERED: GLUCOSE 4GM CHEW TABLET PO PRN (12:25)
[2021-03-17] MEDS ORDERED: NITROGLYCERIN 0.4 MG SUBL TABLET SL PRN (12:25)
[2021-03-17] MEDS: NS 1,000 ML IV SCH ×2 (12:29→21:59)
[2021-03-17] MEDS ORDERED: PILL CUTTER 1 EACH XX PRN (13:30)
[2021-03-17] MEDS ORDERED: metroNIDAZOLE 500 MG in IV 1 EA IV SCH (14:00)
[2021-03-17 14:59] LABS: RSV AMPLIFICATION NEGATIVE (NEGATIVE)
[2021-03-17] MEDS: CIPROFLOXACIN 400 MG in IV 1 EA IV SCH (15:11)
[2021-03-17] MEDS: HumaLOG INSULIN (NovoLOG) PER UNIT SC SCH ×2 (17:42→21:56)
[2021-03-17 18:15] VITALS: BP 164/62
--- NOTE | 2021-03-17 20:24 | ECGEPIP ---
[facility] - ED Test Date: 2021-03-17 Pat Name: MAC GROSS Department: Room: 11-15 Gender: Male Carver Hand: CASEY : 1950 Requested By: Carlotta Briseno Order Number: [id number] Reading MD: Marilou Glover Measurements Intervals [place] Rate: 53 P: 65 TN: 196 QRS: -19 QRSD: 96 T: 11 QT: 454 QTc: 426 Interpretive Statements Sinus bradycardia right ventricular conduction delay decreased rate 05/01/20 Electronically Signed on 03-17-2021 20:24:36 EDT by Marilou Glover
--- NOTE | 2021-03-17 20:27 | ECGEPIP ---
[facility] - ED Test Date: 2021-03-17 Pat Name: MAC GROSS Department: Room: 11-15 Gender: Male Dual Rate Supervisor: JOHN : 1950 Requested By: Carlotta Briseno Order Number: [id number] Reading MD: Marilou Glover Measurements Intervals [place] Rate: 51 P: 73 LA: 186 QRS: -23 QRSD: 96 T: 5 QT: 460 QTc: 423 Interpretive Statements Sinus bradycardia Low voltage QRS similaar 03/17/21 Electronically Signed on 03-17-2021 20:27:25 EDT by Marilou Glover
[2021-03-17] MEDS: LEVEMIR (INSULIN DETEMIR) 1 UNITS/0.01ML SC SCH (21:56)
[2021-03-17] MEDS: HEPARIN SOD (PORCINE) 5000UNITS/ML 1ML VIAL/SYRINGE SC SCH (21:56)
[2021-03-17] MEDS: IRBESARTAN 150MG TAB PO SCH (21:57)
[2021-03-17] MEDS: PANTOPRAZOLE 40MG TAB (PROTONIX) PO SCH (21:57)
[2021-03-17] MEDS: metroNIDAZOLE 500 MG in IV 1 EA IV SCH (21:58)
[2021-03-17] MEDS: GABAPENTIN 300 MG CAP PO SCH (21:59)
[2021-03-17 22:00] VITALS: BP 144/96
[2021-03-18] MEDS: CIPROFLOXACIN 400 MG in IV 1 EA IV SCH ×2 (01:48→13:11)
[2021-03-18] MEDS: LEVOTHYROXINE 112MCG TABLET (0.112MG) PO SCH (05:25)
[2021-03-18] MEDS: metroNIDAZOLE 500 MG in IV 1 EA IV SCH ×4 (05:30→22:56)
[2021-03-18 05:34] VITALS: BP 124/67
[2021-03-18 06:47] LABS: HEMATOCRIT 37.1 % (42.0-52.0); HEMOGLOBIN 12.7 g/dl (13.5-17.5); MEAN CORPUSCULAR HEMOGLOBIN 30.7 pg (27.0-33.0); MEAN CORPUSCULAR HGB CONC 34.2 g/dl (32.0-36.5); MEAN CORPUSCULAR VOLUME 89.6 fl (80.0-96.0); PLATELET COUNT, AUTOMATED 230 10^3/uL (150-450); RED BLOOD COUNT 4.14 10^6/uL (4.30-6.10); WHITE BLOOD COUNT 15.2 10^3/uL (4.0-10.0)
[2021-03-18 07:20] LABS: ALBUMIN 3.2 GM/DL (3.2-5.2); ALT/SGPT 40 U/L (12-78); BILIRUBIN,TOTAL 0.3 MG/DL (0.2-1.0); BLOOD UREA NITROGEN 20 MG/DL (7-18); CALCIUM LEVEL 9.9 MG/DL (8.8-10.2); CARBON DIOXIDE LEVEL 25 MEQ/L (21-32); CHLORIDE LEVEL 103 MEQ/L (98-107); CREATININE FOR GFR 1.25 MG/DL (0.70-1.30); GLOMERULAR FILTRATION RATE > 60.0 (>42); GLUCOSE, FASTING 277 MG/DL (70-100); MAGNESIUM LEVEL 1.9 MG/DL (1.8-2.4); POTASSIUM SERUM 4.2 MEQ/L (3.5-5.1); SODIUM LEVEL 136 MEQ/L (136-145); TOTAL PROTEIN 7.2 GM/DL (6.4-8.2)
[2021-03-18] MEDS: HumaLOG INSULIN (NovoLOG) PER UNIT SC SCH ×4 (08:26→20:44)
[2021-03-18 09:00] VITALS: BP 146/77
[2021-03-18] MEDS ORDERED: NEBIVOLOL 5 MG TAB (BYSTOLIC) PO SCH (09:00)
[2021-03-18] MEDS: FINASTERIDE 5 MG TAB PO SCH (09:15)
[2021-03-18] MEDS: TAMSULOSIN 0.4 MG CAP PO SCH (09:17)
[2021-03-18] MEDS: ESCITALOPRAM OXALATE 10 MG TAB (LEXAPRO) PO SCH (09:17)
[2021-03-18] MEDS: TORSEMIDE 20 MG TAB PO SCH (09:17)
[2021-03-18] MEDS: SPIRONOLACTONE 25 MG TAB PO SCH (09:18)
[2021-03-18] MEDS: PANTOPRAZOLE 40MG TAB (PROTONIX) PO SCH ×2 (09:18→20:43)
[2021-03-18] MEDS: NEBIVOLOL 5 MG TAB (BYSTOLIC) PO SCH (09:21)
[2021-03-18] MEDS: HEPARIN SOD (PORCINE) 5000UNITS/ML 1ML VIAL/SYRINGE SC SCH ×2 (09:22→20:43)
[2021-03-18] MEDS: LEVEMIR (INSULIN DETEMIR) 1 UNITS/0.01ML SC SCH ×2 (09:23→20:44)
[2021-03-18] MEDS: NS 1,000 ML IV SCH ×2 (11:51→17:38)
[2021-03-18 14:00] VITALS: BP 113/57
--- NOTE | 2021-03-18 14:40 | IPNPDOC ---
Text Note Date of Service The patient was seen on 03/18/21. NOTE Subjective: No any acute events overnight. Patient denied fever, chills, nausea. Patient had 2 bowel movements overnight, no blood reported Objective: GENERAL APPEARANCE: Morbidly obese male HEENT: no scleral icterus, no JVD, EOMI CARDIOVASCULAR: S1S2 LUNGS: CTA ABDOMEN: Moderately tender at the lower quadrants MUSCULOSKELETAL: no cyanosis, no swelling INTEGUMENT: no generalized pallor NEUROLOGICAL: cranial nerve function from 2-12 intact intact, follows commands, speech not dysarthric Assessment/Plan Patient is 71 years old male with past history of BPH, barrette's esophagus, type 2 diabetes, hypothyroidism presented to the hospital with diffuse abdominal pain. Patient stated that for past 5 days he has been having diffuse abdominal pain more severe in the left lower quadrant. Patient reported nausea and a few episodes of diarrhea. He noticed red blood in his stool around 3 days ago. Patient denied fever, chills. In ER patient was found to have no leukocytosis, creatinine 1.4. EKG negative for acute ischemic changes. CT abdomen and pelvis showed sigmoid diverticulitis. Problems (1) Diverticulitis CT showed sigmoid diverticulitis Pain management Upgraded his diet to full liquid Cipro IV, Flagyl IV (2) Hypothyroidism Continue levothyroxine (3) Diabetes mellitus Diabetes diet Insulin sliding scale Detemir twice a day (4) Hyperlipidemia Continue statin (5) HTN (hypertension) Continue home cardioprotective medications (6) Obesities, morbid BMI of 40.8 Complicated care (7) GUS treated with BiPAP BiPAP daily at bedtime (8) LLQ abdominal pain Secondary to acute diverticulitis See above (9) Bradycardia Heart rate under control Most likely secondary to beta yusef I decreased the dose bystolic from 5 to 2.5 mg VS,Fishbone, I+O VS, Fishbone, I+O Laboratory Tests 03/18/21 06:09 Vital Signs Date Time Temp Pulse Resp B/P (MAP) Pulse Ox O2 Delivery O2 Flow Rate FiO2 03/18/21 09:21 81 146/77 03/18/21 09:00 98.4 14 94 Room Air I&O- Last 24 Hours up to 6 AM 03/18/21 06:00 Intake Total 1850 ml Output Total 0 ml Balance 1850 ml ANA HANNA DO March 18, 2021 14:39
[2021-03-18 19:50] VITALS: BP 125/61
[2021-03-18] MEDS: GABAPENTIN 300 MG CAP PO SCH (20:43)
[2021-03-18] MEDS: IRBESARTAN 150MG TAB PO SCH (20:44)
[2021-03-19 01:55] VITALS: BP 126/66
[2021-03-19] MEDS: CIPROFLOXACIN 400 MG in IV 1 EA IV SCH ×2 (01:58→12:57)
[2021-03-19] MEDS: NS 1,000 ML IV SCH ×3 (02:27→23:08)
[2021-03-19] MEDS: ACETAMINOPHEN TAB 650MG DOSE (2X325MG) PO PRN ×2 (04:18→21:15)
[2021-03-19] MEDS: metroNIDAZOLE 500 MG in IV 1 EA IV SCH ×4 (05:33→23:08)
[2021-03-19] MEDS: LEVOTHYROXINE 112MCG TABLET (0.112MG) PO SCH (05:33)
[2021-03-19 05:38] VITALS: BP 131/72
[2021-03-19] MEDS: HumaLOG INSULIN (NovoLOG) PER UNIT SC SCH ×4 (07:25→21:00)
[2021-03-19] MEDS: LEVEMIR (INSULIN DETEMIR) 1 UNITS/0.01ML SC SCH ×2 (08:12→21:14)
[2021-03-19] MEDS: HEPARIN SOD (PORCINE) 5000UNITS/ML 1ML VIAL/SYRINGE SC SCH ×2 (08:12→21:15)
[2021-03-19] MEDS: NEBIVOLOL 5 MG TAB (BYSTOLIC) PO SCH (08:13)
[2021-03-19] MEDS: PANTOPRAZOLE 40MG TAB (PROTONIX) PO SCH ×2 (08:13→21:15)
[2021-03-19] MEDS: SPIRONOLACTONE 25 MG TAB PO SCH (08:13)
[2021-03-19] MEDS: ESCITALOPRAM OXALATE 10 MG TAB (LEXAPRO) PO SCH (08:13)
[2021-03-19] MEDS: FINASTERIDE 5 MG TAB PO SCH (08:13)
[2021-03-19] MEDS: TAMSULOSIN 0.4 MG CAP PO SCH (08:13)
[2021-03-19] MEDS: TORSEMIDE 20 MG TAB PO SCH (08:14)
[2021-03-19 08:55] LABS: BASO # 0.1 10^3/uL (0.0-0.2); BASO % 0.7 % (0.0-1.0); EOS # 0.2 10^3/uL (0.0-0.5); EOS % 2.1 % (0.0-3.0); HEMATOCRIT 38.1 % (42.0-52.0); HEMOGLOBIN 12.5 g/dl (13.5-17.5); LYMPH # 2.6 10^3/uL (1.5-5.0); LYMPH % 29.3 % (24.0-44.0); MEAN CORPUSCULAR HEMOGLOBIN 30.3 pg (27.0-33.0); MEAN CORPUSCULAR HGB CONC 32.8 g/dl (32.0-36.5); MEAN CORPUSCULAR VOLUME 92.3 fl (80.0-96.0); MONO # 0.6 10^3/uL (0.0-0.8); MONO % 7.1 % (2.0-8.0); NEUTROPHILS # 5.3 10^3/uL (1.5-8.5); NEUTROPHILS % 60.5 % (36.0-66.0); PLATELET COUNT, AUTOMATED 196 10^3/uL (150-450); RED BLOOD COUNT 4.13 10^6/uL (4.30-6.10); WHITE BLOOD COUNT 8.8 10^3/uL (4.0-10.0)
[2021-03-19 09:14] LABS: ALT/SGPT 58 U/L (12-78); BILIRUBIN,TOTAL 0.2 MG/DL (0.2-1.0); BLOOD UREA NITROGEN 19 MG/DL (7-18); CALCIUM LEVEL 9.2 MG/DL (8.8-10.2); CARBON DIOXIDE LEVEL 26 MEQ/L (21-32); CHLORIDE LEVEL 105 MEQ/L (98-107); CREATININE FOR GFR 1.25 MG/DL (0.70-1.30); GLOMERULAR FILTRATION RATE > 60.0 (>42); GLUCOSE, FASTING 163 MG/DL (70-100); POTASSIUM SERUM 3.7 MEQ/L (3.5-5.1); SODIUM LEVEL 139 MEQ/L (136-145)
[2021-03-19] MEDS ORDERED: CIPR-249 PO (09:15)
[2021-03-19] MEDS ORDERED: BYST5TAB2 PO (09:15)
[2021-03-19] MEDS ORDERED: ACET1TAB55 PO (09:15)
[2021-03-19] MEDS ORDERED: METR-265 PO (09:15)
--- NOTE | 2021-03-19 11:45 | DS.PDOC ---
Discharge Summary General Date of Admission March 17, 2021 at 12:17 Date of Discharge 03/23/21 Discharge Summary PROCEDURES PERFORMED DURING STAY: [None]. ADMITTING DIAGNOSES: Diverticulitis Hypothyroidism Diabetes mellitus Hyperlipidemia HTN (hypertension) Obesities, morbid GUS treated with BiPAP LLQ abdominal pain Bradycardia DISCHARGE DIAGNOSES: Diverticulitis Hypothyroidism Diabetes mellitus Hyperlipidemia HTN (hypertension) Obesities, morbid GUS treated with BiPAP LLQ abdominal pain Bradycardia COMPLICATIONS/CHIEF COMPLAINT: Diverticulitis. HISTORY OF PRESENT ILLNESS: Patient is 71 years old male with past history of BPH, barrette's esophagus, type 2 diabetes, hypothyroidism presented to the hospital with diffuse abdominal pain. Patient stated that for past 5 days he has been having diffuse abdominal pain more severe in the left lower quadrant. Patient reported nausea and a few episodes of diarrhea. He noticed red blood in his stool around 3 days ago. Patient denied fever, chills. In ER patient was found to have no leukocytosis, creatinine 1.4. EKG negative for acute ischemic changes. CT abdomen and pelvis showed sigmoid diverticulitis. HOSPITAL COURSE: During the hospital stay the following issues addressed (1) Diverticulitis CT showed sigmoid diverticulitis Pain management Patient received treatment with Cipro IV, Flagyl IV (2) Hypothyroidism Continue levothyroxine (3) Diabetes mellitus Diabetes diet Insulin sliding scale Detemir twice a day (4) Hyperlipidemia Continue statin (5) HTN (hypertension) Continue home cardioprotective medications (6) Obesities, morbid BMI of 40.8 Complicated care (7) GUS treated with BiPAP BiPAP daily at bedtime (8) LLQ abdominal pain Secondary to acute diverticulitis See above (9) Bradycardia Heart rate under control Most likely secondary to beta yusef I decreased the dose bystolic from 5 to 2.5 mg DISCHARGE MEDICATIONS: Please see below. ALLERGIES: Please see below. PHYSICAL EXAMINATION ON DISCHARGE: VITAL SIGNS: Please see below. GENERAL APPEARANCE: Morbidly obese male HEENT: no scleral icterus, no JVD, EOMI CARDIOVASCULAR: S1S2 LUNGS: CTA ABDOMEN: Slightly tender at the lower quadrants MUSCULOSKELETAL: no cyanosis, no swelling INTEGUMENT: no generalized pallor NEUROLOGICAL: cranial nerve function from 2-12 intact intact, follows commands, speech not dysarthric LABORATORY DATA: Please see below. IMAGING: [facility] NAME: MAC GROSS DATE OF : 1950 AGE: 71 SEX: M REPORT #: [id number] ROOM: M ED TECHNOLOG[facility] DOCTOR: Carlotta Briseno MD Ordered for Date&Time: 03/17/21 0947 cc: [~ rep ct ivnm] Service Date&Time: 03/17/21 1107 This report is in Signed status. If this report is in a DRAFT status it has not yet been reviewed by the radiologist for accuracy. Thank you for having your radiology procedures performed at [facility] RADIOLOGY REPORT Date&Time printed: [~ rep prt dt last] [~ rep prt tm last] Page [address] of [address] [id number] RADIOLOGY REPORT This report is in Signed status. If this report is in a DRAFT status it has not yet been reviewed by the radiologist for accuracy. Thank you for having your radiology procedures performed at [facility] RADIOLOGY REPORT Date&Time printed: [~ rep prt dt last] [~ rep prt tm last] Page 1 of 1 COMPARISON: 09/10/2019. TECHNIQUE: CT Scan of the abdomen and pelvis was performed with intravenous administration of 100 cc of Isovue 370, without oral contrast. Sagittal and coronal reconstruction images are performed. FINDINGS: Lung bases: Unremarkable. Liver: There appears to be diffuse fatty infiltration of the liver Gallbladder: Unremarkable. Spleen: Normal. Adrenals: There is stable left adrenal gland thickening. Pancreas: Normal. Kidneys: Normal. Small and large bowel: There is sigmoid diverticulitis. There is no free air or abscess. Free fluid: None. Abdominal aorta: No aneurysm or dissection. Adenopathy: None. Appendix: Not inflamed. Osseous structures: There are mild degenerative changes without compression deformity. Pelvis: No mass. IMPRESSION: Sigmoid diverticulitis. No evidence of free air, free fluid or abscess. <Electronically signed by Prieto Engel > 03/17/21 1122 DD: Prieto Engel MD, MD 03/17/21 1113 DT: NANCY 03/17/21 1122 DS: ELEANOR 03/17/21 1113 03/17/21 1113 [~ rep ct labl] PROGNOSIS: Fair ACTIVITY: [As tolerated]. DIET: Soft mechanical DISPOSITION: . Home DISCHARGE INSTRUCTIONS: Continue soft mechanical diet for next 4 days ITEMS TO FOLLOWUP ON ON OUTPATIENT: Follow-up with PCP in 3-5 days and GI team in 4 weeks DISCHARGE CONDITION: [Stable]. TIME SPENT ON DISCHARGE: 40 minutes. Vital Signs/I&Os Vital Signs Date Time Temp Pulse Resp B/P (MAP) Pulse Ox O2 Delivery O2 Flow Rate FiO2 03/19/21 08:13 57 131/72 03/19/21 05:38 98.2 18 94 Room Air I&O- Last 24 Hours up to 6 AM 03/19/21 06:00 Intake Total 2620 ml Output Total 400 ml Balance 2220 ml Laboratory Data Labs 24H Laboratory Tests 2 03/18/21 16:38: Bedside Glucose (Misc Panel) 139H 03/18/21 19:52: Bedside Glucose (Misc Panel) 187H 03/18/21 23:02: Urine Color STRAW, Urine Appearance CLEAR, Urine pH 5.0, Urine Specific [place] 1.004, Urine Protein 1+H, Urine Glucose (UA) NEGATIVE, Urine Ketones NEGATIVE, Urine Blood NEGATIVE, Urine Nitrite NEGATIVE, Urine Bilirubin NEGATIVE, Urine Urobilinogen 0.2, Urine Leukocyte Esterase NEGATIVE, Urine WBC (Auto) 0, Urine RBC (Auto) 1, Urine Hyaline Casts (Auto) 0, Urine Bacteria (Auto) NEGATIVE, Urine Squamous Epithelial Cells 0, Urine Sperm (Auto) 03/19/21 01:52: Bedside Glucose (Misc Panel) 108 03/19/21 05:53: Bedside Glucose (Misc Panel) 122H 03/19/21 08:31: Immature Granulocyte % (Auto) 0.3, Neutrophils (%) (Auto) 60.5, Lymphocytes (%) (Auto) 29.3, Monocytes (%) (Auto) 7.1, Eosinophils (%) (Auto) 2.1, Basophils (%) (Auto) 0.7, Neutrophils # (Auto) 5.3, Lymphocytes # (Auto) 2.6, Monocytes # (Auto) 0.6, Eosinophils # (Auto) 0.2, Basophils # (Auto) 0.1, Nucleated Red Blood Cells % (auto) 0.0, Anion Gap 8, Glomerular Filtration Rate > 60.0, Calcium Level 9.2, Total Bilirubin 0.2, Aspartate Amino Transf (AST/SGOT) 61H, Alanine Aminotransferase (ALT/SGPT) 58, Alkaline Phosphatase 82, Total Protein 7.0, Albumin 3.0L, Albumin/Globulin Ratio 0.8 CBC/BMP Laboratory Tests 03/19/21 08:31 FSBS Laboratory Tests Test 03/18/21 16:38 03/18/21 19:52 03/19/21 01:52 03/19/21 05:53 Range/Units Bedside Glucose ([facility] 139 187 108 122 83-110 MG/DL Microbiology Microbiology 03/19/21 Blood Culture, Received Pending 03/17/21 Blood Culture - Preliminary, Resulted No growth after 24 hours . All specim... 03/17/21 Blood Culture - Preliminary, Resulted No Growth after 48 hours. All Specime... Discharge Medications Scheduled Ciprofloxacin HCl (Cipro) 500 Mg Tablet, 1 TAB PO BID Escitalopram Oxalate (Lexapro) 10 Mg Tablet, 10 MG PO DAILY, (Reported) Finasteride (Finasteride) 5 Mg Tablet, 5 MG PO DAILY, (Reported) Gabapentin (Gabapentin) 300 Mg Capsule, 600 MG PO QHS, (Reported) Insulin Glargine,Hum.rec.anlog (Toujeo Max Solostar) 300 Unit/Ml Inj, 128 UNIT SC QHS, (Reported) Insulin Lispro (Humalog) 100 Unit/1 Ml Cartridge, 1 DOSE SC AC, (Reported) PER SLIDING SCALE Irbesartan (Irbesartan) 150 Mg Tab, 150 MG PO QHS, (Reported) Levothyroxine Sodium (Levoxyl) 112 Mcg Tablet, 112 MCG PO DAILY, (Reported) Metoclopramide HCl (Metoclopramide HCl) 5 Mg Tablet, 5 MG PO Q6H Metronidazole (Metronidazole) 500 Mg Tablet, 500 MG PO TID Nebivolol HCl (Bystolic) 5 Mg Tablet, 2.5 MG PO DAILY Pantoprazole Sodium (Protonix) 40 Mg Tab, 40 MG PO DAILY, (Reported) Spironolactone (Spironolactone) 25 Mg Tablet, 25 MG PO DAILY, (Reported) Tamsulosin Hcl (Tamsulosin HCl) 0.4 Mg Capsule, 0.4 MG PO DAILY, (Reported) Torsemide (Torsemide) 20 Mg Tablet, 20 MG PO DAILY, (Reported) Scheduled PRN Acetaminophen (Acetaminophen) 325 Mg Tablet, 650 MG PO Q4H PRN for PAIN OR FEVER Nitroglycerin (Nitroglycerin) 0.4 Mg Tab.subl, 0.4 MG SL NITRO PRN for CHEST PAIN, (Reported) Zolpidem Tartrate (Zolpidem Tartrate) 5 Mg Tablet, 10 MG PO QHS PRN for INSOMNIA, (Reported) Allergies Coded Allergies: Penicillins (Verified Allergy, Severe, anyphlaxis, 01/28/20) demeclocycline (Verified Allergy, Unknown, 01/28/20) erythromycin base (Verified Allergy, Unknown, 01/28/20) Sulfa (Sulfonamide Antibiotics) (Verified Adverse Reaction, Intermediate, VERY ILL, 01/28/20) ANA HANNA DO March 19, 2021 11:45
[2021-03-19 13:50] VITALS: BP 91/61
[2021-03-19 14:00] VITALS: BP 98/58
[2021-03-19 14:07] VITALS: BP 112/60
[2021-03-19] MEDS ORDERED: ONDANSETRON 4MG/2ML VIAL IV PRN (14:15)
[2021-03-19] MEDS: GABAPENTIN 300 MG CAP PO SCH (14:51)
--- NOTE | 2021-03-19 15:26 | IPNPDOC ---
Text Note Date of Service The patient was seen on 03/19/21. NOTE Subjective: His diet was upgraded to soft mechanical, however patient did not tolerate it developed nausea and vomiting Objective: GENERAL APPEARANCE: Morbidly obese male HEENT: no scleral icterus, no JVD, EOMI CARDIOVASCULAR: S1S2 LUNGS: CTA ABDOMEN: Mildly tender at the lower quadrants MUSCULOSKELETAL: no cyanosis, no swelling INTEGUMENT: no generalized pallor NEUROLOGICAL: cranial nerve function from 2-12 intact intact, follows commands, speech not dysarthric Assessment/Plan Patient is 71 years old male with past history of BPH, barrette's esophagus, t ype 2 diabetes, hypothyroidism presented to the hospital with diffuse abdominal pain. Patient stated that for past 5 days he has been having diffuse abdominal pain more severe in the left lower quadrant. Patient reported nausea and a few episodes of diarrhea. He noticed red blood in his stool around 3 days ago. Patient denied fever, chills. In ER patient was found to have no leukocytosis, creatinine 1.4. EKG negative for acute ischemic changes. CT abdomen and pelvis showed sigmoid diverticulitis. Problems (1) Diverticulitis CT showed sigmoid diverticulitis Pain management Continue full liquid diet Cipro IV, Flagyl IV (2) Hypothyroidism Continue levothyroxine (3) Diabetes mellitus Diabetes diet Insulin sliding scale Detemir twice a day (4) Hyperlipidemia Continue statin (5) HTN (hypertension) Continue home cardioprotective medications (6) Obesities, morbid BMI of 40.8 Complicated care (7) GUS treated with BiPAP BiPAP daily at bedtime (8) LLQ abdominal pain Secondary to acute diverticulitis See above (9) Bradycardia Heart rate under control Most likely secondary to beta yusef I decreased the dose bystolic from 5 to 2.5 mg VS,Fishbone, I+O VS, Fishbone, I+O Laboratory Tests 03/19/21 08:31 Vital Signs Date Time Temp Pulse Resp B/P (MAP) Pulse Ox O2 Delivery O2 Flow Rate FiO2 03/19/21 14:07 98.6 56 18 112/60 (77) 96 Room Air I&O- Last 24 Hours up to 6 AM 03/19/21 06:00 Intake Total 2620 ml Output Total 400 ml Balance 2220 ml ANA HANNA DO March 19, 2021 15:26
[2021-03-19 19:39] VITALS: BP 121/56
[2021-03-19] MEDS: IRBESARTAN 150MG TAB PO SCH (21:14)
[2021-03-20] MEDS: CIPROFLOXACIN 400 MG in IV 1 EA IV SCH ×2 (01:50→14:54)
[2021-03-20] MEDS: metroNIDAZOLE 500 MG in IV 1 EA IV SCH ×4 (05:09→23:10)
[2021-03-20] MEDS: LEVOTHYROXINE 112MCG TABLET (0.112MG) PO SCH (05:09)
[2021-03-20 06:00] VITALS: BP 146/74
[2021-03-20 06:05] LABS: BASO # 0.1 10^3/uL (0.0-0.2); BASO % 0.6 % (0.0-1.0); EOS # 0.2 10^3/uL (0.0-0.5); EOS % 2.2 % (0.0-3.0); HEMATOCRIT 39.9 % (42.0-52.0); LYMPH # 2.1 10^3/uL (1.5-5.0); LYMPH % 23.8 % (24.0-44.0); MEAN CORPUSCULAR HEMOGLOBIN 29.9 pg (27.0-33.0); MEAN CORPUSCULAR HGB CONC 32.6 g/dl (32.0-36.5); MEAN CORPUSCULAR VOLUME 91.7 fl (80.0-96.0); MONO # 0.6 10^3/uL (0.0-0.8); MONO % 7.4 % (2.0-8.0); NEUTROPHILS # 5.7 10^3/uL (1.5-8.5); NEUTROPHILS % 65.7 % (36.0-66.0); PLATELET COUNT, AUTOMATED 206 10^3/uL (150-450); RED BLOOD COUNT 4.35 10^6/uL (4.30-6.10); WHITE BLOOD COUNT 8.7 10^3/uL (4.0-10.0)
[2021-03-20 06:31] LABS: ALBUMIN 3.1 GM/DL (3.2-5.2); ALT/SGPT 59 U/L (12-78); BILIRUBIN,TOTAL 0.3 MG/DL (0.2-1.0); BLOOD UREA NITROGEN 17 MG/DL (7-18); CALCIUM LEVEL 9.3 MG/DL (8.8-10.2); CARBON DIOXIDE LEVEL 30 MEQ/L (21-32); CHLORIDE LEVEL 105 MEQ/L (98-107); CREATININE FOR GFR 1.24 MG/DL (0.70-1.30); GLOMERULAR FILTRATION RATE > 60.0 (>42); GLUCOSE, FASTING 140 MG/DL (70-100); MAGNESIUM LEVEL 2.1 MG/DL (1.8-2.4); SODIUM LEVEL 140 MEQ/L (136-145); TOTAL PROTEIN 7.3 GM/DL (6.4-8.2)
[2021-03-20] MEDS: HumaLOG INSULIN (NovoLOG) PER UNIT SC SCH ×4 (08:28→21:00)
[2021-03-20] MEDS: ESCITALOPRAM OXALATE 10 MG TAB (LEXAPRO) PO SCH (08:30)
[2021-03-20] MEDS: TORSEMIDE 20 MG TAB PO SCH (08:30)
[2021-03-20] MEDS: SPIRONOLACTONE 25 MG TAB PO SCH (08:30)
[2021-03-20] MEDS: TAMSULOSIN 0.4 MG CAP PO SCH (08:30)
[2021-03-20] MEDS: PANTOPRAZOLE 40MG TAB (PROTONIX) PO SCH ×2 (08:30→21:04)
[2021-03-20] MEDS: FINASTERIDE 5 MG TAB PO SCH (08:30)
[2021-03-20] MEDS: HEPARIN SOD (PORCINE) 5000UNITS/ML 1ML VIAL/SYRINGE SC SCH ×2 (08:31→21:05)
[2021-03-20] MEDS: NEBIVOLOL 5 MG TAB (BYSTOLIC) PO SCH (08:31)
[2021-03-20] MEDS: LEVEMIR (INSULIN DETEMIR) 1 UNITS/0.01ML SC SCH ×2 (08:35→21:06)
[2021-03-20] MEDS: NS 1,000 ML IV SCH ×2 (09:41→21:05)
--- NOTE | 2021-03-20 10:51 | IPNPDOC ---
Text Note Date of Service The patient was seen on 03/20/21. NOTE Subjective: Patient had 1 episode of vomiting in the morning. Denied fever or chills. He stated that he had some mild abdominal pain Objective: GENERAL APPEARANCE: Morbidly obese male HEENT: no scleral icterus, no JVD, EOMI CARDIOVASCULAR: S1S2 LUNGS: CTA ABDOMEN: Mildly tender at the lower quadrants MUSCULOSKELETAL: no cyanosis, no swelling INTEGUMENT: no generalized pallor NEUROLOGICAL: cranial nerve function from 2-12 intact intact, follows commands, speech not dysarthric Assessment/Plan Patient is 71 years old male with past history of BPH, barrette's esophagus, type 2 diabetes, hypothyroidism presented to the hospital with diffuse abdominal pain. Patient stated that for past 5 days he has been having diffuse abdominal pain more severe in the left lower quadrant. Patient reported nausea and a few episodes of diarrhea. He noticed red blood in his stool around 3 days ago. Patient denied fever, chills. In ER patient was found to have no leukocytosis, creatinine 1.4. EKG negative for acute ischemic changes. CT abdomen and pelvis showed sigmoid diverticulitis. Problems (1) Diverticulitis CT showed sigmoid diverticulitis Pain management Continue full liquid diet Cipro IV, Flagyl IV (2) Hypothyroidism Continue levothyroxine (3) Diabetes mellitus Diabetes diet Insulin sliding scale Detemir twice a day (4) Hyperlipidemia Continue statin (5) HTN (hypertension) Continue home cardioprotective medications (6) Obesities, morbid BMI of 40.8 Complicated care (7) GUS treated with BiPAP BiPAP daily at bedtime (8) LLQ abdominal pain Secondary to acute diverticulitis See above (9) Bradycardia Heart rate under control Most likely secondary to beta yusef I decreased the dose bystolic from 5 to 2.5 mg VS,Fishbone, I+O VS, Fishbone, I+O Laboratory Tests 03/20/21 05:44 Vital Signs Date Time Temp Pulse Resp B/P (MAP) Pulse Ox O2 Delivery O2 Flow Rate FiO2 03/20/21 08:31 79 150/71 03/20/21 06:00 98.1 18 96 Room Air I&O- Last 24 Hours up to 6 AM 03/20/21 06:00 Intake Total 2200 ml Output Total 0 ml Balance 2200 ml ANA HANNA DO March 20, 2021 10:51
[2021-03-20 14:00] VITALS: BP 146/77
[2021-03-20] MEDS: GABAPENTIN 300 MG CAP PO SCH (14:54)
[2021-03-20] MEDS: ONDANSETRON 4 MG TAB PO SCH ×2 (14:54→21:04)
[2021-03-20 20:07] VITALS: BP 147/75
[2021-03-20] MEDS: IRBESARTAN 150MG TAB PO SCH (21:04)
[2021-03-21] MEDS: ONDANSETRON 4 MG TAB PO SCH ×4 (02:19→20:22)
[2021-03-21] MEDS: CIPROFLOXACIN 400 MG in IV 1 EA IV SCH ×2 (02:20→14:12)
[2021-03-21] MEDS: metroNIDAZOLE 500 MG in IV 1 EA IV SCH ×4 (04:53→23:25)
[2021-03-21 05:23] VITALS: BP 160/77
[2021-03-21] MEDS: LEVOTHYROXINE 112MCG TABLET (0.112MG) PO SCH (05:32)
[2021-03-21 05:55] LABS: BASO % 0.3 % (0.0-1.0); EOS # 0.2 10^3/uL (0.0-0.5); EOS % 1.8 % (0.0-3.0); HEMATOCRIT 38.4 % (42.0-52.0); HEMOGLOBIN 12.6 g/dl (13.5-17.5); MEAN CORPUSCULAR HEMOGLOBIN 30.1 pg (27.0-33.0); MEAN CORPUSCULAR HGB CONC 32.8 g/dl (32.0-36.5); MEAN CORPUSCULAR VOLUME 91.6 fl (80.0-96.0); MONO # 0.7 10^3/uL (0.0-0.8); MONO % 7.9 % (2.0-8.0); NEUTROPHILS # 6.3 10^3/uL (1.5-8.5); NEUTROPHILS % 67.5 % (36.0-66.0); PLATELET COUNT, AUTOMATED 173 10^3/uL (150-450); RED BLOOD COUNT 4.19 10^6/uL (4.30-6.10); WHITE BLOOD COUNT 9.3 10^3/uL (4.0-10.0)
[2021-03-21] MEDS: NS 1,000 ML IV SCH ×2 (06:15→14:12)
[2021-03-21 06:18] LABS: ALBUMIN 2.9 GM/DL (3.2-5.2); ALT/SGPT 55 U/L (12-78); BILIRUBIN,TOTAL 0.4 MG/DL (0.2-1.0); BLOOD UREA NITROGEN 13 MG/DL (7-18); CALCIUM LEVEL 9.1 MG/DL (8.8-10.2); CARBON DIOXIDE LEVEL 26 MEQ/L (21-32); CHLORIDE LEVEL 107 MEQ/L (98-107); CREATININE FOR GFR 1.13 MG/DL (0.70-1.30); GLOMERULAR FILTRATION RATE > 60.0 (>42); GLUCOSE, FASTING 124 MG/DL (70-100); MAGNESIUM LEVEL 1.9 MG/DL (1.8-2.4); POTASSIUM SERUM 3.7 MEQ/L (3.5-5.1); SODIUM LEVEL 139 MEQ/L (136-145); TOTAL PROTEIN 7.3 GM/DL (6.4-8.2)
[2021-03-21] MEDS: HumaLOG INSULIN (NovoLOG) PER UNIT SC SCH ×4 (08:32→20:14)
[2021-03-21] MEDS: LEVEMIR (INSULIN DETEMIR) 1 UNITS/0.01ML SC SCH ×2 (08:33→20:23)
[2021-03-21] MEDS: ESCITALOPRAM OXALATE 10 MG TAB (LEXAPRO) PO SCH (08:36)
[2021-03-21] MEDS: HEPARIN SOD (PORCINE) 5000UNITS/ML 1ML VIAL/SYRINGE SC SCH ×2 (08:36→20:22)
[2021-03-21] MEDS: FINASTERIDE 5 MG TAB PO SCH (08:36)
[2021-03-21] MEDS: TORSEMIDE 20 MG TAB PO SCH (08:37)
[2021-03-21] MEDS: SPIRONOLACTONE 25 MG TAB PO SCH (08:37)
[2021-03-21] MEDS: TAMSULOSIN 0.4 MG CAP PO SCH (08:37)
[2021-03-21] MEDS: PANTOPRAZOLE 40MG TAB (PROTONIX) PO SCH ×2 (08:37→20:22)
[2021-03-21] MEDS: NEBIVOLOL 5 MG TAB (BYSTOLIC) PO SCH (08:37)
--- NOTE | 2021-03-21 09:20 | IPNPDOC ---
Text Note Date of Service The patient was seen on 03/21/21. NOTE Subjective: Patient denied nausea and vomiting. Patient reported 5 bowel movem ents with liquid stool overnight Objective: GENERAL APPEARANCE: Morbidly obese male HEENT: no scleral icterus, no JVD, EOMI CARDIOVASCULAR: S1S2 LUNGS: CTA ABDOMEN: Nontender at the lower quadrants, nondistended MUSCULOSKELETAL: no cyanosis, no swelling INTEGUMENT: no generalized pallor NEUROLOGICAL: cranial nerve function from 2-12 intact intact, follows commands, speech not dysarthric Assessment/Plan Patient is 71 years old male with past history of BPH, barrette's esophagus, type 2 diabetes, hypothyroidism presented to the hospital with diffuse abdominal pain. Patient stated that for past 5 days he has been having diffuse abdominal pain more severe in the left lower quadrant. Patient reported nausea and a few episodes of diarrhea. He noticed red blood in his stool around 3 days ago. Patient denied fever, chills. In ER patient was found to have no leukocytosis, creatinine 1.4. EKG negative for acute ischemic changes. CT abdomen and pelvis showed sigmoid diverticulitis. Problems (1) Diverticulitis CT showed sigmoid diverticulitis Pain management Trial soft mechanical diet Cipro IV, Flagyl IV (2) Hypothyroidism Continue levothyroxine (3) Diabetes mellitus Diabetes diet Insulin sliding scale Detemir twice a day (4) Hyperlipidemia Continue statin (5) HTN (hypertension) Continue home cardioprotective medications (6) Obesities, morbid BMI of 40.8 Complicated care (7) GUS treated with BiPAP BiPAP daily at bedtime (8) LLQ abdominal pain Secondary to acute diverticulitis See above (9) Bradycardia Heart rate under control Most likely secondary to beta yusef I decreased the dose bystolic from 5 to 2.5 mg Nausea/vomiting Secondary to diverticulitis superimposed with gastroparesis due to diabetes Zofran by mouth every 6 hours Diarrhea We'll check stool for C. difficile VS,Fishbone, I+O VS, Fishbone, I+O Laboratory Tests 03/21/21 05:43 Vital Signs Date Time Temp Pulse Resp B/P (MAP) Pulse Ox O2 Delivery O2 Flow Rate FiO2 03/21/21 08:37 59 160/77 03/21/21 05:23 98.8 20 97 Room Air I&O- Last 24 Hours up to 6 AM 5/9/21 06:00 Intake Total 2980 ml Output Total 75 ml Balance 2905 ml ANA HANNA DO March 21, 2021 09:20
[2021-03-21 14:00] VITALS: BP 161/79
[2021-03-21] MEDS: GABAPENTIN 300 MG CAP PO SCH (14:11)
[2021-03-21 19:27] LABS: CLOSTRIDIUM DIFFICILE PCR NEGATIVE (NEGATIVE)
[2021-03-21] MEDS: IRBESARTAN 150MG TAB PO SCH (20:23)
[2021-03-21 22:00] VITALS: BP 135/66
[2021-03-22] MEDS: NS 1,000 ML IV SCH ×3 (02:39→23:42)
[2021-03-22] MEDS: ONDANSETRON 4 MG TAB PO SCH ×3 (02:39→13:40)
[2021-03-22] MEDS: CIPROFLOXACIN 400 MG in IV 1 EA IV SCH ×2 (02:39→13:40)
[2021-03-22] MEDS: metroNIDAZOLE 500 MG in IV 1 EA IV SCH ×2 (05:08→11:29)
[2021-03-22] MEDS: LEVOTHYROXINE 112MCG TABLET (0.112MG) PO SCH (05:08)
[2021-03-22 06:00] VITALS: BP 153/64
[2021-03-22] MEDS: HumaLOG INSULIN (NovoLOG) PER UNIT SC SCH ×4 (07:30→20:43)
[2021-03-22 07:54] LABS: BASO % 0.4 % (0.0-1.0); EOS # 0.2 10^3/uL (0.0-0.5); HEMATOCRIT 39.3 % (42.0-52.0); HEMOGLOBIN 12.7 g/dl (13.5-17.5); LYMPH % 20.3 % (24.0-44.0); MEAN CORPUSCULAR HEMOGLOBIN 29.8 pg (27.0-33.0); MEAN CORPUSCULAR HGB CONC 32.3 g/dl (32.0-36.5); MEAN CORPUSCULAR VOLUME 92.3 fl (80.0-96.0); MONO # 0.6 10^3/uL (0.0-0.8); MONO % 6.3 % (2.0-8.0); NEUTROPHILS # 6.9 10^3/uL (1.5-8.5); NEUTROPHILS % 70.7 % (36.0-66.0); PLATELET COUNT, AUTOMATED 196 10^3/uL (150-450); RED BLOOD COUNT 4.26 10^6/uL (4.30-6.10); WHITE BLOOD COUNT 9.7 10^3/uL (4.0-10.0)
[2021-03-22 08:09] LABS: ALBUMIN 3.1 GM/DL (3.2-5.2); ALT/SGPT 50 U/L (12-78); BILIRUBIN,TOTAL 0.4 MG/DL (0.2-1.0); BLOOD UREA NITROGEN 11 MG/DL (7-18); CALCIUM LEVEL 9.5 MG/DL (8.8-10.2); CARBON DIOXIDE LEVEL 28 MEQ/L (21-32); CHLORIDE LEVEL 105 MEQ/L (98-107); GLOMERULAR FILTRATION RATE > 60.0 (>42); GLUCOSE, FASTING 102 MG/DL (70-100); MAGNESIUM LEVEL 2.1 MG/DL (1.8-2.4); POTASSIUM SERUM 3.7 MEQ/L (3.5-5.1); SODIUM LEVEL 139 MEQ/L (136-145); TOTAL PROTEIN 6.8 GM/DL (6.4-8.2)
[2021-03-22] MEDS: FINASTERIDE 5 MG TAB PO SCH (08:53)
[2021-03-22] MEDS: ESCITALOPRAM OXALATE 10 MG TAB (LEXAPRO) PO SCH (08:53)
[2021-03-22] MEDS: HEPARIN SOD (PORCINE) 5000UNITS/ML 1ML VIAL/SYRINGE SC SCH ×2 (08:55→20:43)
[2021-03-22] MEDS: PANTOPRAZOLE 40MG TAB (PROTONIX) PO SCH ×2 (08:55→20:41)
[2021-03-22] MEDS: TORSEMIDE 20 MG TAB PO SCH (08:56)
[2021-03-22] MEDS: TAMSULOSIN 0.4 MG CAP PO SCH (08:56)
[2021-03-22] MEDS ORDERED: LEVEMIR (INSULIN DETEMIR) 1 UNITS/0.01ML SC ONE (09:00)
[2021-03-22] MEDS: NEBIVOLOL 5 MG TAB (BYSTOLIC) PO SCH (09:01)
[2021-03-22] MEDS: SPIRONOLACTONE 25 MG TAB PO SCH (09:01)
--- NOTE | 2021-03-22 10:47 | IPNPDOC ---
Text Note Date of Service The patient was seen on 03/22/21. NOTE Subjective: No any acute events overnight. Patient stated that his nausea imp roved. He complains of postnasal drip. Patient stated that his abdominal pain resolved Objective: GENERAL APPEARANCE: Morbidly obese male HEENT: no scleral icterus, no JVD, EOMI CARDIOVASCULAR: S1S2 LUNGS: CTA ABDOMEN: Nontender at the lower quadrants, nondistended MUSCULOSKELETAL: no cyanosis, no swelling INTEGUMENT: no generalized pallor NEUROLOGICAL: cranial nerve function from 2-12 intact intact, follows commands, speech not dysarthric Assessment/Plan Patient is 71 years old male with past history of BPH, barrette's esophagus, type 2 diabetes, hypothyroidism presented to the hospital with diffuse abdominal pain. Patient stated that for past 5 days he has been having diffuse abdominal pain more severe in the left lower quadrant. Patient reported nausea and a few episodes of diarrhea. He noticed red blood in his stool around 3 days ago. Patient denied fever, chills. In ER patient was found to have no leukocytosis, creatinine 1.4. EKG negative for acute ischemic changes. CT abdomen and pelvis showed sigmoid diverticulitis. Problems (1) Diverticulitis CT showed sigmoid diverticulitis Pain management Trial soft mechanical diet Continue Cipro IV, Flagyl IV (2) Hypothyroidism Continue levothyroxine (3) Diabetes mellitus Diabetes diet Insulin sliding scale Detemir twice a day (4) Hyperlipidemia Continue statin (5) HTN (hypertension) Continue home cardioprotective medications (6) Obesities, morbid BMI of 40.8 Complicated care (7) GUS treated with BiPAP BiPAP daily at bedtime (8) LLQ abdominal pain Secondary to acute diverticulitis See above Resolved today (9) Bradycardia Patient continues to have bradycardia Most likely secondary to beta yusef I decreased the dose bystolic from 5 to 2.5 mg. Today decrease 2.5 to 1.25 mg Nausea/vomiting Secondary to diverticulitis superimposed with gastroparesis due to diabetes Zofran by mouth every 6 hours Diarrhea Resolved C. difficile negative Postnasal drip Ipratropium nasal spray VS,Fishbone, I+O VS, Fishbone, I+O Laboratory Tests 03/22/21 06:25 Vital Signs Date Time Temp Pulse Resp B/P (MAP) Pulse Ox O2 Delivery O2 Flow Rate FiO2 03/22/21 09:01 56 142/63 03/22/21 06:00 97.0 20 97 Room Air I&O- Last 24 Hours up to 6 AM 03/22/21 06:00 Intake Total 3860 ml Output Total 100 ml Balance 3760 ml ANA HANNA DO March 22, 2021 10:47
[2021-03-22 14:00] VITALS: BP 119/51
[2021-03-22] MEDS: GABAPENTIN 300 MG CAP PO SCH (15:53)
[2021-03-22] MEDS: metroNIDAZOLE (FLAGYL) 500MG TABLET PO SCH ×2 (17:11→23:42)
[2021-03-22] MEDS: IPRATROPIUM 0.03% NASAL SPRAY 30 ML (ATROVENT) SCH ×2 (17:11→20:43)
[2021-03-22] MEDS: ACETAMINOPHEN TAB 650MG DOSE (2X325MG) PO PRN (20:41)
[2021-03-22] MEDS: METOPROLOL TART 12.5 MG PER 1/2 TAB PO SCH (20:42)
[2021-03-22] MEDS: IRBESARTAN 150MG TAB PO SCH (20:42)
[2021-03-22 22:00] VITALS: BP 123/60
[2021-03-22] MEDS: LEVEMIR (INSULIN DETEMIR) 1 UNITS/0.01ML SC SCH (23:42)
[2021-03-23 06:00] VITALS: BP 125/60
[2021-03-23] MEDS ORDERED: CIPROFLOXACIN 500MG TABLET PO SCH (06:00)
[2021-03-23] MEDS: metroNIDAZOLE (FLAGYL) 500MG TABLET PO SCH ×2 (06:00→13:10)
[2021-03-23] MEDS: LEVOTHYROXINE 112MCG TABLET (0.112MG) PO SCH (06:00)
[2021-03-23 06:22] LABS: BASO # 0.1 10^3/uL (0.0-0.2); BASO % 0.5 % (0.0-1.0); EOS # 0.2 10^3/uL (0.0-0.5); EOS % 1.7 % (0.0-3.0); HEMATOCRIT 38.4 % (42.0-52.0); HEMOGLOBIN 12.3 g/dl (13.5-17.5); LYMPH # 1.8 10^3/uL (1.5-5.0); LYMPH % 17.7 % (24.0-44.0); MEAN CORPUSCULAR HEMOGLOBIN 29.8 pg (27.0-33.0); MONO # 0.6 10^3/uL (0.0-0.8); MONO % 6.5 % (2.0-8.0); NEUTROPHILS # 7.3 10^3/uL (1.5-8.5); NEUTROPHILS % 73.3 % (36.0-66.0); PLATELET COUNT, AUTOMATED 176 10^3/uL (150-450); RED BLOOD COUNT 4.13 10^6/uL (4.30-6.10); WHITE BLOOD COUNT 9.9 10^3/uL (4.0-10.0)
[2021-03-23 06:55] LABS: ALT/SGPT 43 U/L (12-78); BILIRUBIN,TOTAL 0.4 MG/DL (0.2-1.0); BLOOD UREA NITROGEN 11 MG/DL (7-18); CALCIUM LEVEL 9.4 MG/DL (8.8-10.2); CARBON DIOXIDE LEVEL 30 MEQ/L (21-32); CHLORIDE LEVEL 106 MEQ/L (98-107); CREATININE FOR GFR 1.13 MG/DL (0.70-1.30); GLOMERULAR FILTRATION RATE > 60.0 (>42); GLUCOSE, FASTING 132 MG/DL (70-100); SODIUM LEVEL 141 MEQ/L (136-145); TOTAL PROTEIN 6.6 GM/DL (6.4-8.2)
[2021-03-23] MEDS: HumaLOG INSULIN (NovoLOG) PER UNIT SC SCH ×2 (07:30→13:11)
[2021-03-23] MEDS: LEVEMIR (INSULIN DETEMIR) 1 UNITS/0.01ML SC SCH (08:28)
[2021-03-23] MEDS: HEPARIN SOD (PORCINE) 5000UNITS/ML 1ML VIAL/SYRINGE SC SCH (08:30)
[2021-03-23] MEDS: METOCLOPRAMIDE 5 MG TAB PO SCH ×2 (08:30→13:10)
[2021-03-23 08:31] VITALS: BP 125/60
[2021-03-23] MEDS: SPIRONOLACTONE 25 MG TAB PO SCH (08:31)
[2021-03-23] MEDS: TAMSULOSIN 0.4 MG CAP PO SCH (08:31)
[2021-03-23] MEDS: ESCITALOPRAM OXALATE 10 MG TAB (LEXAPRO) PO SCH (08:31)
[2021-03-23] MEDS: METOPROLOL TART 12.5 MG PER 1/2 TAB PO SCH (08:31)
[2021-03-23] MEDS: PANTOPRAZOLE 40MG TAB (PROTONIX) PO SCH (08:31)
[2021-03-23] MEDS: FINASTERIDE 5 MG TAB PO SCH (08:31)
[2021-03-23] MEDS: NS 1,000 ML IV SCH (08:32)
[2021-03-23] MEDS: TORSEMIDE 20 MG TAB PO SCH (08:32)
[2021-03-23] MEDS ORDERED: NEBIVOLOL 5 MG TAB (BYSTOLIC) PO SCH (09:00)
[2021-03-23] MEDS: IPRATROPIUM 0.03% NASAL SPRAY 30 ML (ATROVENT) SCH (09:00)
--- NOTE | 2021-03-23 12:44 | IPNPDOC ---
Text Note Date of Service The patient was seen on 03/23/21. NOTE Subjective: Patient stated that he had 2 large bowel movement with liquid stool overnight foul smelling, Patient stated that his nausea improved. Objective: GENERAL APPEARANCE: Morbidly obese male HEENT: no scleral icterus, no JVD, EOMI CARDIOVASCULAR: S1S2 LUNGS: CTA ABDOMEN: Nontender at the lower quadrants, nondistended MUSCULOSKELETAL: no cyanosis, no swelling INTEGUMENT: no generalized pallor NEUROLOGICAL: cranial nerve function from 2-12 intact intact, follows commands, speech not dysarthric Assessment/Plan Patient is 71 years old male with past history of BPH, barrette's esophagus, type 2 diabetes, hypothyroidism presented to the hospital with diffuse abdominal pain. Patient stated that for past 5 days he has been having diffuse abdominal pain more severe in the left lower quadrant. Patient reported nausea and a few episodes of diarrhea. He noticed red blood in his stool around 3 days ago. Patient denied fever, chills. In ER patient was found to have no leukocytosis, creatinine 1.4. EKG negative for acute ischemic changes. CT abdomen and pelvis showed sigmoid diverticulitis. Problems (1) Diverticulitis CT showed sigmoid diverticulitis Pain management Trial soft mechanical diet Continue Cipro IV, Flagyl IV (2) Hypothyroidism Continue levothyroxine (3) Diabetes mellitus Diabetes diet Insulin sliding scale Detemir twice a day (4) Hyperlipidemia Continue statin (5) HTN (hypertension) Continue home cardioprotective medications (6) Obesities, morbid BMI of 40.8 Complicated care (7) GUS treated with BiPAP BiPAP daily at bedtime (8) LLQ abdominal pain Secondary to acute diverticulitis See above Resolved (9) Bradycardia Patient continues to have bradycardia Most likely secondary to beta yusef I changed Bystolic to metoprolol tartrate 12.5 twice a day Nausea/vomiting Secondary to diverticulitis superimposed with gastroparesis due to diabetes Metoclopramide by mouth [id number] Diarrhea I will repeat C. difficile today Postnasal drip Ipratropium nasal spray VS,Fishbone, I+O VS, Fishbone, I+O Laboratory Tests 03/23/21 05:26 Vital Signs Date Time Temp Pulse Resp B/P (MAP) Pulse Ox O2 Delivery O2 Flow Rate FiO2 03/23/21 08:31 57 125/60 03/23/21 06:00 96.9 20 92 Room Air I&O- Last 24 Hours up to 6 AM 03/23/21 06:00 Intake Total 3010 ml Balance 3010 ml ANA HANNA DO March 23, 2021 12:44
[2021-03-23 14:00] VITALS: BP 133/60
[2021-03-23] MEDS: GABAPENTIN 300 MG CAP PO SCH (15:00)
[2021-03-23 15:15] LABS: CLOSTRIDIUM DIFFICILE PCR NEGATIVE (NEGATIVE)
[2021-03-23] MEDS ORDERED: METO5TAB2 PO (15:40)
[2021-03-23] MEDS ORDERED: CIPR-249 PO (15:40)
[2021-03-23] MEDS ORDERED: METR-265 PO (15:40)
== END 2021-03-23 16:45 | disposition home or self-care (01) | DRG 392 ==
LOC: M ED 09:11 → M ED INP 12:17 → M MS5PR 18:34
PROVIDERS: ADMIT Internal Medicine; ATTEND Internal Medicine
DX: K57.32 Diverticulitis of large intestine without perforation or abscess without bleeding (principal); Z68.41 Body mass index [BMI] 40.0-44.9, adult; I10 Essential (primary) hypertension; E66.01 Morbid (severe) obesity due to excess calories; R00.1 Bradycardia, unspecified; K31.84 Gastroparesis; E11.43 Type 2 diabetes mellitus with diabetic autonomic (poly)neuropathy; R19.7 Diarrhea, unspecified; E03.9 Hypothyroidism, unspecified; G47.33 Obstructive sleep apnea (adult) (pediatric); E78.5 Hyperlipidemia, unspecified; K22.70 Barrett's esophagus without dysplasia; Z79.4 Long term (current) use of insulin; Z79.899 Other long term (current) drug therapy; Z88.0 Allergy status to penicillin; Z88.2 Allergy status to sulfonamides; Z88.8 Allergy status to other drugs, medicaments and biological substances

== ENCOUNTER 2021-04-12 10:16 | Emergency (ER) | payer MEDICARE, OTHER ==
[~2021-04-12] VITALS: Ht 182.9 cm; Wt 129.7 kg
[~2021-04-12 10:16] MED LIST changes: +ACET1TAB55 PO; +BYST5TAB2 PO; +FINA5TAB2 PO; +LEVO112T25 PO; +LEXA1TAB PO; +METO5TAB2 PO; +METR-265 PO; +NITR0.4S14 SL; +SPIR-10 PO; +TAMS1CAP17 PO
[2021-04-12] MEDS ORDERED: NS 1,000 ML IV SCH (10:40)
[2021-04-12 11:00] LABS: BASO # 0.1 10^3/uL (0.0-0.2); BASO % 0.8 % (0.0-1.0); EOS # 0.2 10^3/uL (0.0-0.5); EOS % 2.5 % (0.0-3.0); HEMATOCRIT 38.2 % (42.0-52.0); HEMOGLOBIN 12.9 g/dl (13.5-17.5); LYMPH # 1.7 10^3/uL (1.5-5.0); MEAN CORPUSCULAR HEMOGLOBIN 30.4 pg (27.0-33.0); MEAN CORPUSCULAR HGB CONC 33.8 g/dl (32.0-36.5); MEAN CORPUSCULAR VOLUME 89.9 fl (80.0-96.0); MONO # 0.7 10^3/uL (0.0-0.8); MONO % 8.6 % (2.0-8.0); NEUTROPHILS # 5.1 10^3/uL (1.5-8.5); NEUTROPHILS % 65.7 % (36.0-66.0); PLATELET COUNT, AUTOMATED 224 10^3/uL (150-450); RED BLOOD COUNT 4.25 10^6/uL (4.30-6.10); WHITE BLOOD COUNT 7.7 10^3/uL (4.0-10.0)
[2021-04-12 11:24] LABS: ALBUMIN 3.3 GM/DL (3.2-5.2); BILIRUBIN,DIRECT 0.1 MG/DL (0.0-0.2); BILIRUBIN,TOTAL 0.3 MG/DL (0.2-1.0); TOTAL PROTEIN 7.7 GM/DL (6.4-8.2)
[2021-04-12] MEDS ORDERED: ISOVUE-370 76% 100ML VIAL As Ordered ONE (11:25)
--- NOTE | 2021-04-12 11:53 | REP ---
INDICATION: RLQ pain. COMPARISON: 03/17/2021 TECHNIQUE: Axial contrast-enhanced images from the lung bases to the pubic symphysis using 100 cc Isovue 370 intravenous contrast material. Coronal and sagittal reformations obtained. This CT examination was performed using the following dose reduction techniques: Automated exposure control, adjustment of mA and/or kv according to the patient's size, and the use of iterative reconstruction technique. FINDINGS: Liver demonstrates fatty infiltration without focal hepatic lesion. The spleen, pancreas, gallbladder, bilateral adrenal glands and kidneys are normal. The enteric system is without evidence for obstruction or perforation. Normal terminal ileum and appendix are identified in the right lower quadrant. Extensive sigmoid diverticulosis noted and there is evidence for nearly complete resolved sigmoid diverticulitis as compared to prior examination. Pelvis demonstrates normal bladder and mild prostatomegaly. No ascites. No free air. No intraperitoneal or retroperitoneal adenopathy. Atherosclerotic changes to the aorta and vasculature without aneurysm or dissection.. Musculoskeletal structures are intact and without acute osseous abnormality. IMPRESSION: No acute abdominopelvic pathology appreciated. Nearly completely resolved sigmoid diverticulitis. <Electronically signed by Jose Wayne > 04/12/21 [id number]
[2021-04-12] MEDS ORDERED: HumuLIN R (REGULAR) INSULIN (NovoLIN R) **100U/ML** PER UNIT IV ONE (13:10)
[2021-04-12 14:15] VITALS: BP 149/83
--- NOTE | 2021-04-12 18:22 | ECGEPIP ---
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
== END 2021-04-12 14:20 | disposition home or self-care (01) ==
LOC: M ED 10:16
DX: E11.65 Type 2 diabetes mellitus with hyperglycemia (principal); I10 Essential (primary) hypertension; E78.5 Hyperlipidemia, unspecified; E07.9 Disorder of thyroid, unspecified; G47.33 Obstructive sleep apnea (adult) (pediatric); E66.8 Other obesity; Z99.89 Dependence on other enabling machines and devices; Z79.899 Other long term (current) drug therapy; Z79.4 Long term (current) use of insulin; Z88.0 Allergy status to penicillin; Z88.1 Allergy status to other antibiotic agents; Z88.2 Allergy status to sulfonamides; Z87.891 Personal history of nicotine dependence
CPT/HCPCS: 74177; 80047; 80076; 83690; 85025; 93005; 93041; 96361; 96374; 99284; Q9967

== ENCOUNTER 2021-04-22 15:17 | Emergency (ER) | payer MEDICARE, OTHER ==
[~2021-04-22] VITALS: Ht 182.9 cm; Wt 129.6 kg
[2021-04-22] MEDS ORDERED: ASPIRIN 81 MG CHEW TABLET PO ONE (15:30)
--- NOTE | 2021-04-22 15:46 | REP ---
INDICATION: DYSPNEA/COUGH. COMPARISON: 03/17/2021. TECHNIQUE: Single portable AP view of the chest was performed. FINDINGS: There is no acute infiltrate or pulmonary edema. Lungs are clear. The heart is not significantly enlarged. There is calcification of the thoracic aorta. The mediastinal silhouette is otherwise unremarkable. The visualized osseous structures are intact. IMPRESSION: No acute pulmonary disease. <Electronically signed by Prieto Engel > 04/22/21 [id number]
[2021-04-22 16:02] LABS: BASO # 0.1 10^3/uL (0.0-0.2); BASO % 0.6 % (0.0-1.0); EOS # 0.2 10^3/uL (0.0-0.5); HEMATOCRIT 37.8 % (42.0-52.0); HEMOGLOBIN 12.7 g/dl (13.5-17.5); LYMPH # 1.7 10^3/uL (1.5-5.0); LYMPH % 17.3 % (24.0-44.0); MEAN CORPUSCULAR HGB CONC 33.6 g/dl (32.0-36.5); MEAN CORPUSCULAR VOLUME 89.2 fl (80.0-96.0); MONO # 0.6 10^3/uL (0.0-0.8); MONO % 5.9 % (2.0-8.0); NEUTROPHILS % 73.8 % (36.0-66.0); PLATELET COUNT, AUTOMATED 200 10^3/uL (150-450); RED BLOOD COUNT 4.24 10^6/uL (4.30-6.10); WHITE BLOOD COUNT 9.5 10^3/uL (4.0-10.0)
[2021-04-22 16:36] LABS: ALBUMIN 3.2 GM/DL (3.2-5.2); ALT/SGPT 46 U/L (12-78); BILIRUBIN,DIRECT 0.2 MG/DL (0.0-0.2); BILIRUBIN,TOTAL 0.5 MG/DL (0.2-1.0); BLOOD UREA NITROGEN 19 MG/DL (7-18); CALCIUM LEVEL 9.6 MG/DL (8.8-10.2); CARBON DIOXIDE LEVEL 26 MEQ/L (21-32); CHLORIDE LEVEL 100 MEQ/L (98-107); CK-MB VALUE MASS 1.2 NG/ML (<3.6); CPK CREATINE PHOSPHOKINASE 78 U/L (39-308); CREATININE FOR GFR 1.15 MG/DL (0.70-1.30); GLOMERULAR FILTRATION RATE > 60.0 (>42); GLUCOSE, FASTING 234 MG/DL (70-100); MB/CK RELATIVE INDEX 1.54 (< OR =4); SODIUM LEVEL 136 MEQ/L (136-145); TOTAL PROTEIN 7.7 GM/DL (6.4-8.2); TROPONIN I < 0.02 NG/ML (< 0.10)
[2021-04-22 17:27] VITALS: BP 167/81
--- NOTE | 2021-04-23 03:19 | ECGEPIP ---
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
== END 2021-04-22 17:30 | disposition home or self-care (01) ==
LOC: EDBD 15:17 → M ED 15:17
DX: R53.83 Other fatigue (principal); R53.81 Other malaise; B34.9 Viral infection, unspecified; R06.02 Shortness of breath; R05 Cough; E11.9 Type 2 diabetes mellitus without complications; I10 Essential (primary) hypertension; Z88.0 Allergy status to penicillin; Z88.1 Allergy status to other antibiotic agents; Z88.2 Allergy status to sulfonamides; Z79.899 Other long term (current) drug therapy; Z79.4 Long term (current) use of insulin

== ENCOUNTER 2021-08-20 20:53 | Emergency (ER) | payer MEDICARE, OTHER ==
[~2021-08-20] VITALS: Ht 182.9 cm; Wt 129.6 kg
[2021-08-20 20:54] VITALS: BP 173/83
[2021-08-22] MEDS ORDERED: SYNT125T PO (09:32)
[2021-08-22] MEDS ORDERED: ZOLP10TA2 PO (09:32)
[2021-08-22] MEDS ORDERED: BYST5TAB2 PO (09:32)
[2021-08-22] MEDS ORDERED: ONDA-83 PO (09:36)
[2021-08-22] MEDS ORDERED: SUCR1TAB56 PO (09:36)
[2021-08-22] MEDS ORDERED: GABA-282 PO (09:45)
== END 2021-08-21 01:05 | disposition left against medical advice (07) ==
LOC: M ED 20:53
DX: Z53.21 Procedure and treatment not carried out due to patient leaving prior to being seen by health care provider (principal)

== ENCOUNTER 2021-08-22 00:27 | Inpatient (IN) | payer MEDICARE, OTHER ==
[~2021-08-22] VITALS: Ht 182.9 cm; Wt 131.3 kg
[2021-08-22 01:50] LABS: BASO # 0.1 10^3/uL (0.0-0.2); BASO % 0.4 % (0.0-1.0); EOS # 0.1 10^3/uL (0.0-0.5); EOS % 0.4 % (0.0-3.0); HEMATOCRIT 38.4 % (42.0-52.0); HEMOGLOBIN 13.2 g/dl (13.5-17.5); LYMPH # 1.2 10^3/uL (1.5-5.0); MEAN CORPUSCULAR HEMOGLOBIN 30.6 pg (27.0-33.0); MEAN CORPUSCULAR HGB CONC 34.4 g/dl (32.0-36.5); MEAN CORPUSCULAR VOLUME 88.9 fl (80.0-96.0); MONO # 0.7 10^3/uL (0.0-0.8); MONO % 5.2 % (2.0-8.0); NEUTROPHILS # 11.4 10^3/uL (1.5-8.5); NEUTROPHILS % 84.6 % (36.0-66.0); PLATELET COUNT, AUTOMATED 205 10^3/uL (150-450); RED BLOOD COUNT 4.32 10^6/uL (4.30-6.10); WHITE BLOOD COUNT 13.5 10^3/uL (4.0-10.0)
[2021-08-22 02:27] LABS: ALBUMIN 3.3 GM/DL (3.2-5.2); ALT/SGPT 52 U/L (12-78); BILIRUBIN,DIRECT 0.2 MG/DL (0.0-0.2); BILIRUBIN,TOTAL 0.5 MG/DL (0.2-1.0); BLOOD UREA NITROGEN 20 MG/DL (7-18); CALCIUM LEVEL 9.9 MG/DL (8.8-10.2); CARBON DIOXIDE LEVEL 27 MEQ/L (21-32); CHLORIDE LEVEL 96 MEQ/L (98-107); CK-MB VALUE MASS < 1.0 NG/ML (<3.6); CPK CREATINE PHOSPHOKINASE 79 U/L (39-308); CREATININE FOR GFR 1.49 MG/DL (0.70-1.30); GLOMERULAR FILTRATION RATE 49.4 (>42); GLUCOSE, FASTING 363 MG/DL (70-100); LIPASE 90 U/L (73-393); MB/CK RELATIVE INDEX 1.27 (< OR =4); POTASSIUM SERUM 4.5 MEQ/L (3.5-5.1); SODIUM LEVEL 132 MEQ/L (136-145); TOTAL PROTEIN 7.9 GM/DL (6.4-8.2); TROPONIN I < 0.02 NG/ML (< 0.10)
[2021-08-22] MEDS ORDERED: MORPHINE 4 MG/ML 1ML VIAL/SYRINGE (J2270) IV PRN (03:35)
[2021-08-22] MEDS ORDERED: ONDANSETRON 4MG/2ML VIAL IV ONE (03:35)
[2021-08-22] MEDS ORDERED: NS 1,000 ML IV ONE (03:35)
[2021-08-22] MEDS ORDERED: ISOVUE-370 76% 100ML VIAL As Ordered ONE (03:38)
--- NOTE | 2021-08-22 07:01 | REPVR ---
PROCEDURE INFORMATION: Exam: CT Abdomen And Pelvis With Contrast Exam date and time: 08/22/2021 3:49 AM Age: 71 years old Clinical indication: Abdominal pain; Generalized; Additional info: Generalized abd pain TECHNIQUE: Imaging protocol: Computed tomography of the abdomen and pelvis with contrast. Radiation optimization: All CT scans at this facility use at least one of these dose optimization techniques: automated exposure control; mA and/or kV adjustment per patient size (includes targeted exams where dose is matched to clinical indication); or iterative reconstruction. Contrast material: ISOVUE 370; Contrast volume: 100 ml; Contrast route: INTRAVENOUS (IV); COMPARISON: CT ABD/PEL W/IV CONTRAST ONLY 04/12/2021 11:33 AM. FINDINGS: LUNG BASES: Prominent AP dimension of the chest may be seen with underlying changes of COPD. 3 mm pulmonary nodular opacity seen within the left lower lobe (image 19, series 201) and right lower lobe (image 13, series 201) of uncertain significance. Clinical correlation with risk factors. If the patient does not have a known history of malignancy for patients at low risk (minimal or absent history of smoking and of other known risk factors), no routine follow-up is indicated. For patients at high risk (history of smoking or of other known risk factors), consider optional CT Chest at 12 months. (Reference: [place]). VASCULAR: Coronary arterial calcifications are seen. No abdominoaortic aneurysm, dissection, or retroperitoneal hematoma. There is atherosclerotic disease. PERITONEAL : No free air or free fluid. GI: Tiny gas containing hiatal hernia. The distal esophagus and stomach are not sufficiently distended to evaluate wall thickening or for complete diagnostic evaluation by this exam. Gastritis cannot be excluded. No appearance of a small-bowel obstruction. No focal mesenteric inflammation. Small nonspecific mesenteric lymph nodes. Scattered fecal material and gas within portions of the colon and rectum. Some portions of the colon appear thick walled but are not well evaluated secondary to lack of distention. Clinical correlation is advised. There is diverticulosis but no evidence of acute diverticulitis. The appendix does not appear inflamed. There is some fluid within the ascending colon and transverse colon. HEPATOBILIARY, PANCREAS, SPLEEN: Hepatic length is 22 cm. Attenuation of the liver is consistent with fatty infiltration. No calcified gallstones or biliary dilation. No pancreatic inflammation. There is mild splenomegaly. The spleen measures 15.9 cm in diameter. ADRENALS, KIDNEYS, BLADDER, RETROPERITONEAL: Adrenals within normal limits. No hydronephrosis. Symmetric renal enhancement. Slight lobular appearance of the kidneys may be developmental. Tiny renal hypodensities noted, too small to further characterize. Consistent with the [employer]'s Incidental Findings Committee white paper (J Am Jaleesa Radiol 2018): Any incidental cystic renal lesion classified in this report as too small to characterize or simple appearing is likely a benign cyst. No follow-up imaging is neccesary for these lesions per consensus recommendations based on imaging criteria if there is average risk of renal malignancy. No perivesical stranding. Mildly prominent prostate impressing along the base of the urinary bladder. Small nonspecific retroperitoneal lymph nodes. MUSCULOSKELETAL: Degenerative changes of the spine and pelvis are noted. Mild to moderate spinal stenosis suspected at the L4/L5 level. Small fat containing umbilical hernia. IMPRESSION: No free-air, free-fluid or focal mesenteric inflammation. Nonspecific gastrointestinal findings as discussed above. Hepatosplenomegaly. Hepatic steatosis. Mildly prominent prostate gland impressing along the base of the urinary bladder. Indeterminate pulmonary nodules. Nonemergent recommendations discussed above. Other nonemergent findings discussed above. Electronically signed by: Juancarlos Locke On 08/22/2021 07:01:04 AM
[2021-08-22] MEDS ORDERED: METOCLOPRAMIDE INJ 10MG/2ML VIAL (J2765 PER 1) IV ONE (07:40)
[2021-08-22] MEDS ORDERED: DEXTROSE 50% 50 ML SYRINGE IV PRN (08:50)
[2021-08-22] MEDS ORDERED: GLUCOSE 4GM CHEW TABLET PO PRN (08:50)
[2021-08-22] MEDS ORDERED: GLUCAGON INJ 1MG VIAL SC PRN (08:50)
[2021-08-22] MEDS ORDERED: PROCHLORPERAZINE 10MG/2ML VIAL (J0780 PER 1) IV PRN (08:50)
[2021-08-22] MEDS ORDERED: ONDANSETRON 4MG/2ML VIAL IV PRN (08:50)
[2021-08-22] MEDS: NEBIVOLOL 5 MG TAB (BYSTOLIC) PO SCH (09:00)
[2021-08-22] MEDS ORDERED: LEVOTHYROXINE 112MCG TABLET (0.112MG) PO SCH (09:00)
[2021-08-22] MEDS ORDERED: SYNT125T PO (09:32)
[2021-08-22] MEDS ORDERED: BYST5TAB2 PO (09:32)
[2021-08-22] MEDS ORDERED: ZOLP10TA2 PO (09:32)
[2021-08-22] MEDS ORDERED: SUCR1TAB56 PO (09:36)
[2021-08-22] MEDS ORDERED: ONDA-83 PO (09:36)
[2021-08-22] MEDS ORDERED: GABA-282 PO (09:45)
[2021-08-22 09:46] LABS: RSV AMPLIFICATION NEGATIVE (NEGATIVE)
[2021-08-22] MEDS: NS 1,000 ML IV SCH ×2 (09:57→23:09)
[2021-08-22] MEDS ORDERED: HOME MED LIST COMPLETE! XX SCH (10:25)
[2021-08-22] MEDS: PANTOPRAZOLE 40MG VIAL (C9113 PER 1) IV SCH ×2 (11:30→21:13)
[2021-08-22] MEDS: HumaLOG INSULIN (NovoLOG) PER UNIT SC SCH ×3 (11:46→21:13)
[2021-08-22 13:00] VITALS: BP 112/90
--- NOTE | 2021-08-22 13:01 | HPEPDOC ---
General Date of Admission 08/22/21 Date of Service: Aug 22, 2021 Chief Complaint The patient is a 71-year-old male admitted with a reason for visit of Abdominal Pain. Source: Patient History of Present Illness 71-year-old male with past medical history of diabetes with gastroparesis, GERD, Sunshine's esophagus, sigmoid diverticulitis, hypertension, hyperlipidemia, GUS does not use CPAP, presented to the emergency room with 3 to 4 weeks history of generalized abdominal pain with distention, nausea vomiting and severe retching. He also complains of being constipated. Patient described the abdominal pain is burning in nature, constantly present and rated it as 7/10. CT abdomen and pelvis done in the emergency room was negative for any acute findings. It showed hepatomegaly and fatty liver and mild splenomegaly. There was no bowel obstruction or free air or mesenteric inflammation. Labs were significant for a white count of 13.6 and a creatinine of 1.49 which is higher than baseline. Patient is being admitted for evaluation of abdominal pain with dehydration and BRIDGER. Home Medications Scheduled Escitalopram Oxalate (Lexapro) 10 Mg Tablet, 10 MG PO DAILY, (Reported) Finasteride (Finasteride) 5 Mg Tablet, 5 MG PO DAILY, (Reported) Gabapentin (Gabapentin) 300 Mg Capsule, 600 MG PO QHS, (Reported) Gabapentin (Gabapentin) 300 Mg Capsule, 300 MG PO DAILY, (Reported) Insulin Glargine,Hum.rec.anlog (Toujeo Max Solostar) 300 Unit/Ml Inj, 128 UNIT SC QHS, (Reported) Insulin Lispro (Humalog) 100 Unit/1 Ml Cartridge, 1 DOSE SC AC, (Reported) PER SLIDING SCALE Irbesartan (Irbesartan) 150 Mg Tab, 150 MG PO QHS, (Reported) Levothyroxine Sodium (Synthroid) 125 Mcg Tablet, 125 MCG PO DAILY, (Reported) Nebivolol HCl (Bystolic) 5 Mg Tablet, 2.5 MG PO DAILY, (Reported) Pantoprazole Sodium (Protonix) 40 Mg Tab, 40 MG PO DAILY, (Reported) Spironolactone (Spironolactone) 25 Mg Tablet, 25 MG PO DAILY, (Reported) Sucralfate (Sucralfate) 1 Gm Tablet, 1 GM PO ACHS, (Reported) Tamsulosin Hcl (Tamsulosin HCl) 0.4 Mg Capsule, 0.4 MG PO DAILY, (Reported) Torsemide (Torsemide) 20 Mg Tablet, 20 MG PO DAILY, (Reported) Scheduled PRN Ondansetron HCl (Ondansetron HCl) 4 Mg Tablet, 4 MG PO Q6H PRN for NAUSEA OR VOMITING, (Reported) Zolpidem Tartrate (Zolpidem Tartrate) 10 Mg Tablet, 10 MG PO QHS PRN for SLEEP, (Reported) Allergies Coded Allergies: Penicillins (Verified Allergy, Severe, anyphlaxis, 01/28/20) demeclocycline (Verified Allergy, Unknown, 01/28/20) erythromycin base (Verified Allergy, Unknown, 01/28/20) Sulfa (Sulfonamide Antibiotics) (Verified Adverse Reaction, Intermediate, VERY ILL, 01/28/20) Past Medical History Medical History Sunshine's esophagus, GERD, type 2 diabetes with gastroparesis, hypothyroidism, o besity, GUS , HLD, h/o sigmoid diverticulitis, chronic low back pain/lumbar spinal stenosis, BPH, Surgical History Partial thyroidectomy, Hernia repair Right leg fracture repair Skin tags removed Family History Patient reports that both his parents at a very young age and he did not know any of after medical history. He does not know the medical history of any of his siblings Social History * Smoker: former Smoker Alcohol: rarely Drugs: denies A-FIB/CHADSVASC A-FIB History Current/History of A-Fib/PAF?: No Review of Systems Constitutional: Reports: Weakness, Fatigue Eyes: Denies: Pain, Vision change ENT: Denies: Head Aches, Ear Pain, Dysphagia Skin: Denies: Rash, Lesions, Breakdown Pulmonary: Denies: Dyspnea, Cough Cardiovascular: Denies: Chest Pain, Palpitations, Orthopnea, Paroxysmal Noc. Dyspnea, Lt Headedness Gastrointestinal: Reports: Nausea, Vomiting, Abdominal Pain, Constipation Genitourinary: Denies: Dysuria, Frequency, Incontinence, Retention Hematologic: Denies: Bruising, Bleeding Excessively Musculoskeletal: Reports: Back Pain Physical Examination General Exam: Positive: Alert, Cooperative, No Acute Distress Eye Exam: Positive: PERRLA, Conjunctiva & lids normal, EOMI; Negative: Sclera icteric ENT Exam: Positive: Atraumatic, Mucous membr. moist/pink, Pharynx Normal Neck Exam: Positive: Supple; Negative: JVD, thyromegaly Chest Exam: Positive: Clear to auscultation, Normal air movement Heart Exam: Positive: Rate Normal, Regular Rhythm, Normal S1, Normal S2; Negative: Murmurs, Rubs Abdomen Exam: Positive: Normal bowel sounds, Soft, Tenderness (In the epigastrium and periumbilical region), Other (Severely obese) Extremity Exam: Negative: Clubbing, Cyanosis, Edema Neuro Exam: Positive: Normal Speech, Strength at 5/5 X4 ext, Normal Tone Psych Exam: Positive: Memory Intact, Oriented x 3 Vital Signs Vital Signs Date Time Temp Pulse Resp B/P (MAP) Pulse Ox O2 Delivery O2 Flow Rate FiO2 08/22/21 08:00 62 151/76 (101) 98 08/22/21 07:31 96.9 16 Room Air Laboratory Data Labs 24H Laboratory Tests 2 08/22/21 01:39: Immature Granulocyte % (Auto) 0.4, Neutrophils (%) (Auto) 84.6H, Lymphocytes (%) (Auto) 9.0L, Monocytes (%) (Auto) 5.2, Eosinophils (%) (Auto) 0.4, Basophils (%) (Auto) 0.4, Neutrophils # (Auto) 11.4H, Lymphocytes # (Auto) 1.2L, Monocytes # (Auto) 0.7, Eosinophils # (Auto) 0.1, Basophils # (Auto) 0.1, Nucleated Red Blood Cells % (auto) 0.0, Anion Gap 9, Glomerular Filtration Rate 49.4, Lactic Acid Level 2.4*H, Calcium Level 9.9, Total Bilirubin 0.5, Direct Bilirubin 0.2, Aspartate Amino Transf (AST/SGOT) 33, Alanine Aminotransferase (ALT/SGPT) 52, Alkaline Phosphatase 81, Total Creatine Kinase 79, Creatine Kinase MB < 1.0, Creatine Kinase MB Relative Index 1.27, Troponin I < 0.02, Total Protein 7.9, Albumin 3.3, Albumin/Globulin Ratio 0.7, Lipase 90 CBC/BMP Laboratory Tests 08/22/21 01:39 Assessment/Plan 71-year-old male with past medical history of diabetes with gastroparesis, GERD, Sunshine's esophagus, sigmoid diverticulitis, hypertension, hyperlipidemia, GUS on CPAP, presented to the emergency room with 3 to 4 weeks history of ge neralized abdominal pain with distention, nausea vomiting and severe retching. He also complains of being constipated. Patient described the abdominal pain is burning in nature, constantly present and rated it as 7/10. CT abdomen and pelvis done in the emergency room was negative for any acute findings. It showed hepatomegaly and fatty liver and mild splenomegaly. There was no bowel obstruction or free air or mesenteric inflammation. Labs were significant for a white count of 13.6 and a creatinine of 1.49 which is higher than baseline. Patient is being admitted for evaluation of abdominal pain with dehydration and BRIDGER. Abdominal pain nausea vomiting retching CT abdomen negative for any acute change Most likely acute gastritis versus acute flare of gastroparesis Will give Zofran, Compazine, IV fluid Clear liquids as tolerated BRIDGER Due to poor oral intake We will give IV fluid Constipation Started on bowel regimen Diabetes with neuropathy We will give lispro and Levemir fingersticks before meals and at bedtime Continue gabapentin Hypertension Hold Avapro due to BRIDGER We will give amlodipine Hypothyroid Continue Synthroid BPH Continue tamsulosin and finasteride Plan / VTE VTE Prophylaxis Ordered?: Yes Melyssa Bruno MD Aug 22, 2021 08:55
[2021-08-22] MEDS ORDERED: MOM 30ML SUSPENSION UDC PO PRN (13:05)
[2021-08-22] MEDS ORDERED: PILL CUTTER 1 EACH XX PRN (13:55)
[2021-08-22 14:00] VITALS: BP 112/90
[2021-08-22] MEDS ORDERED: FLEET ENEMA PR ONE (14:00)
[2021-08-22] MEDS: LEVOTHYROXINE 125MCG TABLET (0.125MG) PO SCH (14:00)
[2021-08-22] MEDS: BISACODYL 10 MG SUPP PR SCH ×2 (14:13→21:13)
[2021-08-22] MEDS: FINASTERIDE 5 MG TAB PO SCH (14:26)
[2021-08-22] MEDS: LEVEMIR (INSULIN DETEMIR) 1 UNITS/0.01ML SC SCH ×2 (14:26→21:12)
[2021-08-22] MEDS: TAMSULOSIN 0.4 MG CAP PO SCH (14:26)
[2021-08-22] MEDS: ENOXAPARIN 40MG/0.4ML SYRINGE (J1650 PER 10MG) SC SCH (14:26)
--- NOTE | 2021-08-22 19:14 | ECGEPIP ---
[facility] - ED Test Date: 2021-08-22 Pat Name: MAC GROSS Department: Room: - Gender: Male Bindery Chief: JCLEILA : 1950 Requested By: NASIMA Menjivar Order Number: [id number] Reading MD: Marilou Glvoer Measurements Intervals [place] Rate: 80 P: 60 CT: 194 QRS: -34 QRSD: 96 T: 6 QT: 398 QTc: 459 Interpretive Statements Normal sinus rhythm Left axis deviation Inferior-posterior infarct , age undetermined Electronically Signed on 08-22-2021 19:14:29 EDT by Marilou Glover
[2021-08-22] MEDS: GABAPENTIN 300 MG CAP PO SCH (21:13)
[2021-08-22 22:00] VITALS: BP 132/57
[2021-08-23] MEDS: LEVOTHYROXINE 125MCG TABLET (0.125MG) PO SCH (05:19)
[2021-08-23 06:00] VITALS: BP 100/47
[2021-08-23] MEDS: BISACODYL 10 MG SUPP PR SCH ×3 (09:00→21:00)
[2021-08-23] MEDS: NS 1,000 ML IV SCH (09:29)
[2021-08-23] MEDS: ENOXAPARIN 40MG/0.4ML SYRINGE (J1650 PER 10MG) SC SCH (09:30)
[2021-08-23] MEDS: PANTOPRAZOLE 40MG VIAL (C9113 PER 1) IV SCH ×2 (09:30→21:00)
[2021-08-23] MEDS: LEVEMIR (INSULIN DETEMIR) 1 UNITS/0.01ML SC SCH ×2 (09:31→21:55)
[2021-08-23] MEDS: HumaLOG INSULIN (NovoLOG) PER UNIT SC SCH ×4 (09:31→21:00)
[2021-08-23] MEDS: FINASTERIDE 5 MG TAB PO SCH (09:34)
[2021-08-23] MEDS: TAMSULOSIN 0.4 MG CAP PO SCH (09:34)
[2021-08-23] MEDS: NEBIVOLOL 5 MG TAB (BYSTOLIC) PO SCH (09:38)
--- NOTE | 2021-08-23 09:44 | IPNPDOC ---
Subjective Date Seen The patient was seen on 08/23/21. Subjective Chief Complaint/HPI No furthr vomiting or retching. Was able to tolerated oral liquids. Had only a very small bowel movement. Will advance diet to full liquids if she is tolerating we will stop IV fluid. Will give milk of magnesia for constipation if that does not work we will give mag citrate. Objective Physical Examination General Exam: Positive: Alert, Cooperative, No Acute Distress Eye Exam: Positive: PERRLA, Conjunctiva & lids normal, EOMI; Negative: Sclera icteric ENT Exam: Positive: Atraumatic, Mucous membr. moist/pink, Pharynx Normal Neck Exam: Positive: Supple; Negative: JVD, thyromegaly Chest Exam: Positive: Clear to auscultation, Normal air movement Heart Exam: Positive: Rate Normal, Regular Rhythm, Normal S1, Normal S2; Negative: Murmurs, Rubs Abdomen Exam: Positive: Normal bowel sounds, Soft, Tenderness (In the epigastrium and periumbilical region), Other (Severely obese) Extremity Exam: Negative: Clubbing, Cyanosis, Edema Neuro Exam: Positive: Normal Speech, Strength at 5/5 X4 ext, Normal Tone Psych Exam: Positive: Memory Intact, Oriented x 3 Assessment /Plan Assessment 71-year-old male with past medical history of diabetes with gastroparesis, GERD with laryngeal penetration, Sunshine's esophagus, Hiatal hernia, sigmoid diverticulitis, hypertension, hyperlipidemia, GUS on CPAP, presented to the emergency room with 3 to 4 weeks history of generalized abdominal pain with distention, nausea vomiting and severe retching. He also complains of being constipated. Patient described the abdominal pain is burning in nature, constantly present and rated it as 7/10. CT abdomen and pelvis done in the emergency room was negative for any acute findings. It showed hepatomegaly and fatty liver and mild splenomegaly. There was no bowel obstruction or free air or mesenteric inflammation. Labs were significant for a white count of 13.6 and a creatinine of 1.49 which is higher than baseline. Patient is being admitted for evaluation of abdominal pain with dehydration and BRIDGER. Acute gastritis with severe GERD Vs acute flare of gastroparesis. Most likely acute gastritis/ GERD versus acute flare of gastroparesis Barium swallow before showed There was laryngeal penetration. There was a hiatal hernia.There was full column of gastroesophageal reflux to above the level of the jay. continue Zofran, Compazine, IV fluid, IV pantoprazole Clear liquids then advance as tolerated BRIDGER Due to poor oral intake improved Constipation Started on bowel regimen Diabetes with neuropathy We will give lispro and Levemir fingersticks before meals and at bedtime Continue gabapentin Hypertension Hold Avapro due to BRIDGER We will give amlodipine Hypothyroid Continue Synthroid BPH Continue tamsulosin and finasteride Plan/VTE VTE Prophylaxis Ordered?: Yes VS, I&O, 24H, Fishbone Vital Signs/I&O Vital Signs Date Time Temp Pulse Resp B/P (MAP) Pulse Ox O2 Delivery O2 Flow Rate FiO2 08/23/21 06:00 97.9 60 18 100/47 (64) 96 Room Air I&O- Last 24 Hours up to 6 AM 08/23/21 05:59 Intake Total 960 ml Balance 960 ml Laboratory Data 24H LABS Laboratory Tests 2 08/22/21 08:57: Coronavirus (COVID-19)(PCR) NEGATIVE, Influenza Type A (RT-PCR) NEGATIVE, Influenza Type B (RT-PCR) NEGATIVE, Respiratory Syncytial Virus (PCR) NEGATIVE 08/22/21 09:48: Lactic Acid Followup at 4 Hours 2.8*H 08/22/21 11:29: Bedside Glucose (Misc Panel) 385H 08/22/21 16:37: Bedside Glucose (Misc Panel) 285H 08/22/21 20:38: Bedside Glucose (Misc Panel) 277H Melyssa Bruno MD Aug 23, 2021 06:50
[2021-08-23 11:13] LABS: BASO # 0.1 10^3/uL (0.0-0.2); BASO % 0.7 % (0.0-1.0); EOS # 0.3 10^3/uL (0.0-0.5); HEMATOCRIT 35.8 % (42.0-52.0); HEMOGLOBIN 11.9 g/dl (13.5-17.5); LYMPH # 2.3 10^3/uL (1.5-5.0); LYMPH % 25.2 % (24.0-44.0); MEAN CORPUSCULAR HEMOGLOBIN 30.4 pg (27.0-33.0); MEAN CORPUSCULAR HGB CONC 33.2 g/dl (32.0-36.5); MEAN CORPUSCULAR VOLUME 91.3 fl (80.0-96.0); MONO # 0.7 10^3/uL (0.0-0.8); MONO % 7.4 % (2.0-8.0); NEUTROPHILS # 5.7 10^3/uL (1.5-8.5); NEUTROPHILS % 63.3 % (36.0-66.0); PLATELET COUNT, AUTOMATED 199 10^3/uL (150-450); RED BLOOD COUNT 3.92 10^6/uL (4.30-6.10)
[2021-08-23 11:42] LABS: CALCIUM LEVEL 8.8 MG/DL (8.8-10.2); CREATININE FOR GFR 1.35 MG/DL (0.70-1.30); GLOMERULAR FILTRATION RATE 55.3 (>42); POTASSIUM SERUM 3.9 MEQ/L (3.5-5.1)
[2021-08-23 14:00] VITALS: BP 134/71
[2021-08-23] MEDS ORDERED: NS 1,000 ML IV SCH (14:00)
[2021-08-23] MEDS ORDERED: MAGNESIUM CITRATE 300 ML BTL PO ONE (18:55)
[2021-08-23] MEDS: GABAPENTIN 300 MG CAP PO SCH (21:01)
[2021-08-23 22:00] VITALS: BP 162/76
[2021-08-24] MEDS: LEVOTHYROXINE 125MCG TABLET (0.125MG) PO SCH (05:30)
[2021-08-24 06:00] VITALS: BP 153/70
[2021-08-24 08:44] LABS: BASO # 0.1 10^3/uL (0.0-0.2); BASO % 0.9 % (0.0-1.0); EOS # 0.2 10^3/uL (0.0-0.5); HEMATOCRIT 35.7 % (42.0-52.0); LYMPH % 25.7 % (24.0-44.0); MEAN CORPUSCULAR HEMOGLOBIN 30.7 pg (27.0-33.0); MEAN CORPUSCULAR HGB CONC 33.6 g/dl (32.0-36.5); MEAN CORPUSCULAR VOLUME 91.3 fl (80.0-96.0); MONO # 0.6 10^3/uL (0.0-0.8); MONO % 7.1 % (2.0-8.0); NEUTROPHILS % 62.8 % (36.0-66.0); PLATELET COUNT, AUTOMATED 208 10^3/uL (150-450); RED BLOOD COUNT 3.91 10^6/uL (4.30-6.10); WHITE BLOOD COUNT 7.9 10^3/uL (4.0-10.0)
[2021-08-24] MEDS: LEVEMIR (INSULIN DETEMIR) 1 UNITS/0.01ML SC SCH (08:52)
[2021-08-24] MEDS: HumaLOG INSULIN (NovoLOG) PER UNIT SC SCH ×2 (08:53→12:29)
[2021-08-24] MEDS: ENOXAPARIN 40MG/0.4ML SYRINGE (J1650 PER 10MG) SC SCH (08:54)
[2021-08-24] MEDS: FINASTERIDE 5 MG TAB PO SCH (08:54)
[2021-08-24] MEDS: TAMSULOSIN 0.4 MG CAP PO SCH (08:54)
[2021-08-24 08:57] VITALS: BP 165/61
[2021-08-24] MEDS: NEBIVOLOL 5 MG TAB (BYSTOLIC) PO SCH (08:57)
[2021-08-24] MEDS: BISACODYL 10 MG SUPP PR SCH (09:00)
[2021-08-24 09:09] LABS: BLOOD UREA NITROGEN 11 MG/DL (7-18); CALCIUM LEVEL 9.5 MG/DL (8.8-10.2); CARBON DIOXIDE LEVEL 28 MEQ/L (21-32); CHLORIDE LEVEL 105 MEQ/L (98-107); CREATININE FOR GFR 1.12 MG/DL (0.70-1.30); GLOMERULAR FILTRATION RATE > 60.0 (>42); GLUCOSE, FASTING 165 MG/DL (70-100); POTASSIUM SERUM 4.2 MEQ/L (3.5-5.1); SODIUM LEVEL 137 MEQ/L (136-145)
[2021-08-24] MEDS: PANTOPRAZOLE 40MG VIAL (C9113 PER 1) IV SCH (09:21)
[2021-08-24 14:00] VITALS: BP 145/76
--- NOTE | 2021-08-24 14:20 | DS.PDOC ---
Discharge Summary General Date of Admission Aug 22, 2021 at 08:47 Date of Discharge 08/24/2021 Primary Care Physician: Jr Pollack Collins Attending Physician: HORTENCIA DRAPER DO Discharge Summary PROCEDURES PERFORMED DURING STAY: None. ADMITTING DIAGNOSES: 1. Abdominal pain, nausea, vomiting. 2. Acute kidney injury 3. Constipation 4. Diabetes with neuropathy 5. Hypertension 6. Hypothyroidism 7. BPH DISCHARGE DIAGNOSES: 1. Acute gastritis with severe GERD versus acute flare of gastroparesis. 2. Acute kidney injury, resolved 3. Constipation 4. Diabetes with neuropathy 5. Hypertension 6. Hypothyroidism 7. BPH COMPLICATIONS/CHIEF COMPLAINT: Abdominal Pain. HISTORY OF PRESENT ILLNESS: Patient is a 71-year-old male with past medical history of diabetes with gastroparesis, GERD, Sunshine's Navigus, sigmoid diverticulitis, hypertension, hyperlipidemia, GUS who does not use CPAP presented the emergency room with 3 to 4-week history of generalized abdominal pain with distention, nausea, vomiting, and severe retching. Patient also complains of being constipated. Patient described the abdominal pain as burning in nature, constantly present rated at 7/10. CT abdomen and pelvis done in the emergency room was negative for any acute findings. Showed pattern megaly with fatty liver and mild splenomegaly. There was no bowel obstruction or free air or mesenteric inflammation. Labs are significant for a white count of 13.6, creatinine 1.49 which is higher than baseline. Patient has mid evaluation of abdominal pain with dehydration and acute kidney injury. HOSPITAL COURSE: Patient received IV fluid hydration and was started on liquid diet. Gastric emptying study was going to be performed inpatient however, due to the holiday weekend, this was delayed. Patient was able to tolerate a diet and was having decrease in his abdominal pain. Patient's acute kidney injury had resolved. Patient was feeling better and did have 2 bowel movements on his second day of hospitalization. Patient was up walking around. Patient stated initially that he was not able to get a ride to his gastric emptying study which was scheduled for 08/25/2021 however, work with social workers they were able to get him a ride. Patient was also offered a cab voucher however, he declined this. Patient was tolerating the diet and his creatinine did come back in the normal range. Patient was deemed ready for discharge and was discharged home on 08/24/2021 DISCHARGE MEDICATIONS: Please see below. ALLERGIES: Please see below. PHYSICAL EXAMINATION ON DISCHARGE: VITAL SIGNS: Please see below. General: Alert and oriented male patient who was sitting the bedside chair and walked in. Patient did not appear to be in any acute distress. HEENT: Normocephalic, atraumatic, moist mucous membranes. Neck: No lymphadenopathy or thyromegaly Cardiac: Regular rate and rhythm, no murmurs, normal S1, normal S2 Pulm: Clear to auscultation bilaterally. No wheezes, rhonchi, rales Abd: Nondistended, minimal tenderness to palpation, no rebound tenderness, n ormal bowel sounds Ext: No edema bilateral lower extremities LABORATORY DATA: Please see below. IMAGING: CT of the abdomen and pelvis performed with IV contrast on 08/22/2021 was reported to show no free air, free fluid, or focal mesenteric inflammation. Nonspecific gastrointestinal findings. Hepatosplenomegaly, hepatic steatosis. Mild prominent prostate gland impressing along the base of the urinary bladder. Indeterminate pulmonary nodules. PROGNOSIS: Fair ACTIVITY: As tolerated. DIET: Low residue, consistent carbohydrate DISCHARGE PLAN: Discharge home DISPOSITION: 01-Home, self-care DISCHARGE INSTRUCTIONS: 1. Follow-up with your primary care provider within 3 to 5 days discharge. 2. Report back to the hospital for your gastric emptying study tomorrow morning. Do not eat or drink anything after midnight for this study. 3. Return to the emergency department if symptoms worsen ITEMS TO FOLLOWUP ON ON OUTPATIENT: 1. Follow-up gastric emptying study. 2. CT the abdomen and pelvis mentioned pulmonary nodules that was 3 mm and was seen in the left lower lobe. In the report they mention that if the patient has a history of smoking optional CT chest at 12 months could be performed to monitor this. DISCHARGE CONDITION: Stable. TIME SPENT ON DISCHARGE: 35 minutes. Vital Signs/I&Os Vital Signs Date Time Temp Pulse Resp B/P (MAP) Pulse Ox O2 Delivery O2 Flow Rate FiO2 08/24/21 08:57 74 165/61 08/24/21 06:00 97.6 18 95 Room Air I&O- Last 24 Hours up to 6 AM 08/24/21 06:00 Intake Total 1320 ml Balance 1320 ml Laboratory Data Labs 24H Laboratory Tests 2 08/23/21 16:19: Bedside Glucose (Misc Panel) 193H 08/23/21 20:48: Bedside Glucose (Misc Panel) 227H 08/24/21 05:49: Bedside Glucose (Misc Panel) 147H 08/24/21 08:14: Immature Granulocyte % (Auto) 0.5, Neutrophils (%) (Auto) 62.8, Lymphocytes (%) (Auto) 25.7, Monocytes (%) (Auto) 7.1, Eosinophils (%) (Auto) 3.0, Basophils (%) (Auto) 0.9, Neutrophils # (Auto) 5.0, Lymphocytes # (Auto) 2.0, Monocytes # (Auto) 0.6, Eosinophils # (Auto) 0.2, Basophils # (Auto) 0.1, Nucleated Red Blood Cells % (auto) 0.0, Anion Gap 4L, Glomerular Filtration Rate > 60.0, Calcium Level 9.5 08/24/21 11:39: Bedside Glucose (Misc Panel) 205H CBC/BMP Laboratory Tests 08/24/21 08:14 FSBS Laboratory Tests Test 08/23/21 16:19 08/23/21 20:48 08/24/21 05:49 08/24/21 11:39 Range/Units Bedside Glucose (Misc Panel) 193 227 147 205 83-110 MG/DL Discharge Medications Scheduled Escitalopram Oxalate (Lexapro) 10 Mg Tablet, 10 MG PO DAILY, (Reported) Finasteride (Finasteride) 5 Mg Tablet, 5 MG PO DAILY, (Reported) Gabapentin (Gabapentin) 300 Mg Capsule, 600 MG PO QHS, (Reported) Gabapentin (Gabapentin) 300 Mg Capsule, 300 MG PO DAILY, (Reported) Insulin Glargine,Hum.rec.anlog (Toujeo Max Solostar) 300 Unit/Ml Inj, 128 UNIT SC QHS, (Reported) Insulin Lispro (Humalog) 100 Unit/1 Ml Cartridge, 1 DOSE SC AC, (Reported) PER SLIDING SCALE Irbesartan (Irbesartan) 150 Mg Tab, 150 MG PO QHS, (Reported) Levothyroxine Sodium (Synthroid) 125 Mcg Tablet, 125 MCG PO DAILY, (Reported) Nebivolol HCl (Bystolic) 5 Mg Tablet, 2.5 MG PO DAILY, (Reported) Pantoprazole Sodium (Protonix) 40 Mg Tab, 40 MG PO DAILY, (Reported) Spironolactone (Spironolactone) 25 Mg Tablet, 25 MG PO DAILY, (Reported) Sucralfate (Sucralfate) 1 Gm Tablet, 1 GM PO ACHS, (Reported) Tamsulosin Hcl (Tamsulosin HCl) 0.4 Mg Capsule, 0.4 MG PO DAILY, (Reported) Torsemide (Torsemide) 20 Mg Tablet, 20 MG PO DAILY, (Reported) Scheduled PRN Ondansetron HCl (Ondansetron HCl) 4 Mg Tablet, 4 MG PO Q6H PRN for NAUSEA OR VOMITING, (Reported) Zolpidem Tartrate (Zolpidem Tartrate) 10 Mg Tablet, 10 MG PO QHS PRN for SLEEP, (Reported) Allergies Coded Allergies: Penicillins (Verified Allergy, Severe, anyphlaxis, 01/28/20) demeclocycline (Verified Allergy, Unknown, 01/28/20) erythromycin base (Verified Allergy, Unknown, 01/28/20) Sulfa (Sulfonamide Antibiotics) (Verified Adverse Reaction, Intermediate, VERY ILL, 01/28/20) HORTENCIA DRAPER DO Aug 24, 2021 14:20
== END 2021-08-24 15:50 | disposition home or self-care (01) | DRG 392 ==
LOC: M ED 00:27 → M ED INP 08:47 → ENRESERV 12:17 → M MS5PR 12:50
PROVIDERS: ADMIT Internal Medicine Nephrology; ATTEND Family Medicine
DX: K29.00 Acute gastritis without bleeding (principal); N17.9 Acute kidney failure, unspecified; R10.84 Generalized abdominal pain; K21.9 Gastro-esophageal reflux disease without esophagitis; K22.70 Barrett's esophagus without dysplasia; I10 Essential (primary) hypertension; E78.5 Hyperlipidemia, unspecified; G47.33 Obstructive sleep apnea (adult) (pediatric); K31.84 Gastroparesis; R16.2 Hepatomegaly with splenomegaly, not elsewhere classified; K76.0 Fatty (change of) liver, not elsewhere classified; E86.0 Dehydration; Z79.4 Long term (current) use of insulin; Z79.899 Other long term (current) drug therapy; Z88.0 Allergy status to penicillin; Z88.1 Allergy status to other antibiotic agents; Z88.8 Allergy status to other drugs, medicaments and biological substances; Z88.2 Allergy status to sulfonamides; M48.061 Spinal stenosis, lumbar region without neurogenic claudication; N40.0 Benign prostatic hyperplasia without lower urinary tract symptoms; K59.00 Constipation, unspecified; E89.0 Postprocedural hypothyroidism; E11.43 Type 2 diabetes mellitus with diabetic autonomic (poly)neuropathy; K44.9 Diaphragmatic hernia without obstruction or gangrene; Z20.822 Contact with and (suspected) exposure to COVID-19

== ENCOUNTER → 2021-08-25 | Outpatient (CLI) | payer MEDICARE, OTHER ==
[~2021-08-25] MED LIST changes: +ONDA-83 PO; +SUCR1TAB56 PO; +SYNT125T PO; +ZOLP10TA2 PO
--- NOTE | 2021-08-25 13:04 | REP ---
INDICATION: GASTROPARESIS. COMPARISON: None. TECHNIQUE/RADIOTRACER AND DOSE: Following the intravenous administration of 1.06 mCi technetium 99 M sulfur colloid in 2 scrambled eggs and 6 oz of water, multiple images of the upper abdomen are performed in the anterior and posterior projections for 90 minutes. FINDINGS: The gastric activity is measured. At the end of 90 minutes 34% of the ingested activity has emptied from the stomach. The T1/2 is 127 minutes which is normal. IMPRESSION: Mildly increased gastric emptying time. <Electronically signed by Prieto Engel > 08/25/21 [id number]
== END ==
LOC: M RAD 09:44
PROVIDERS: ATTEND Family Medicine
DX: K31.84 Gastroparesis (principal)
CPT/HCPCS: 78264; A9541

== ENCOUNTER 2021-09-20 14:28 | Emergency (ER) | payer MEDICARE, OTHER ==
[~2021-09-20] VITALS: Ht 182.9 cm; Wt 129.6 kg
[2021-09-20 14:30] VITALS: BP 161/77
--- OUTSIDE RECORDS SUMMARY | 2021-09-20 14:41 | CCD | Continuity of Care Document ---
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 Kalpesh Pollack MD Onset: 06/29/2011 Polyneuropathy due to diabetes mellitus Rolf Catherine Onset: 06/29/2011 Metabolic syndrome X Kalpesh Pollack MD Onset: 06/29/2011 Pure hypercholesterolemia Kalpesh Pollack MD Onset: 06/29 Chronic nonalcoholic liver disease Kalpesh Pollack MD Ons et: 06/29/2011 Morbid obesity Kalpesh Pollack MD Onset: 06/29/2011 Body mass index 40+ - severely obese Kalpesh Pollack MD O nset: 06/29/2011 Obstructive sleep apnea syndrome Kalpesh Pollack MD Onset : 06/29/2011 Sunshine's esophagus Kalpesh Pollack MD Onset: 11/02/2011 Type 2 diabetes mellitus Kalpesh Pollack MD Onset: 2013 Type 2 diabetes mellitus Kalpesh Pollack MD Onset: 2014 Essential hypertension Kalpesh Pollack MD Onset: 09/15/20 15 Chronic diastolic heart failure Kalpesh Pollack MD Onset: 05/07/2018 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 and stage 1 through stage 4 chronic kidney disease, or unspecified chronic kidney disease Kalpesh Pollack MD Onset: 12/14/2018 Social History Type Date Description Comments Sex Unknown ETOH Use Denies alcohol use Tobacco Use Start: Unknown End: Unknown Patient is a former smoker 2 [employer]MER [employer] FOR 15 YEARS Allergies, Adverse Reactions, Alerts Active Allergies Reaction Severity Comments Date Crestor 12/22/2010 Metformin diarrhea 03/23/2011 Pravachol myopathy in thighs 4 Penicillin hives and anaphlaces 015 Sulfa rash 05/22/2015 Cefdinir throat itch/malaise Moderate 05/27/20 17 Doxycycline light headed, off balance Cipro rash 06/12/2020 Medications Active Medications SIG Qnty Indications Ordering Provide r Date Fluticasone Propionate Nasal Dickerson 24- H our 50mcg/Act Suspension 1-2 puffs in each nostril daily 1units Vania Friedman, GALLO 03/26/2021 Gabapentin 300mg Capsules 1 pill every am and 2 every evening 270caps Kalpesh Pollack MD 2020 Escitalopram Oxalate 10mg Tablets 1 by mouth every day 90tabs Kalpesh Pollack MD 01/05/2021 Pantoprazole Sodium 40mg Tablets D R 1 by mouth every day 90tabs Kalpesh Pollack MD 12/07/2020 Sucralfate 1gm Tablets take one tablet by mouth one hour before meals three times a day and at bedtime 360tabs Kalpesh Pollack MD 09/15/2020 Gaviscon Advance prn severe acid reflux OTC Col deepthijose Pollack MD 09/11/2020 Toujeo Max Solostar 300Unit/ML Solution Pen-Inject Titrate Up To 128 Units Under The Skin Daily 36units Kalpesh Pollack MD 06/04/2020 Humalog Kwikpen 100U nit/ML Solution Pen-Inject inject 10 units sq with each meal three times a day plus sliding three times a day with each meal as directed 45ml Kalpesh clark MD 06/04/2020 Unifine Pentips Plus 31G X 8 mm Mi sc use three times a day 300units Kalpesh Pollack MD 02/14/20 20 Spironolactone 25mg Tablets Take One Tablet By Mouth Every Day 90tabs Kalpesh Pollack MD 02/09/2020 Levothyroxine Sodium 125mcg Tablet s Take One Tablet By Mouth Every Day On An Empty Stomach 90tabs Kalpesh Pollack MD 12/27/2019 Irbesartan 150mg Tablets 1 by mouth every day 90tabs Pina Gonzalez DO 12/17/2019 Bystolic 5mg Tablets 1/2 by mouth every day 90tabs Pina Gonzalez DO 12/17/2019 Proair HFA 108(90Base) mcg/Act Aer osol 2 puffs up to four times daily as needed for cough or shortness of breath 8.500gm J20.9 Kalpesh Pollack MD 10/17/2019 Fluticasone Propionate Nasal Dickerson 50mcg/Act Suspension 2 sprays in each nostril daily for two weeks 9.900ml H69 .93 Kalpesh Pollack MD 10/09/2019 Zolpidem Tartrate 10mg Tablets 1 by mouth as needed for sleep 30tabs Kalpesh Pollakc MD 2018 Erythrocin Stearate 250mg Tablets Kalpesh Pollack MD 10/03/2018 Albuterol Sulfate (2 .5mg/3ML) 0.083% Nebulizer use via aerosol neb four times a day as needed 360ml Nel Luan FNP 06/13/2017 Freestyle Lite Test Strips test 3 times a day and as needed test strips for free style freedom meter 300units Kalpesh Pollack MD 05/11/2017 Torsemide 20mg Tablets take one tablet by mouth every day 90tabs Kalpesh Pollack MD Tamsulosin HCL 0.4mg Capsules Take One Capsule By Mouth Daily One-Half Hour After The Same Meal 90caps Kalpesh Pollack MD Finasteride 5mg Tablets Take One Tablet By Mouth Every Day 90tabs Kalpesh Pollack MD Symbicort 160-4.5mcg/Act Aerosol 2 puff twice a day 12gm Kalpesh Pollack MD Metoclopramide HCL 5mg Tablets take one tablet by mouth four times a day Unknown Medications Administered in Office Medication SIG Qnty Indications Ordering Provider Date Covid-19 vaccine, Unspecified Inj ection Unknown 02/12/2021 Covid-19 vaccine, Unspecified Inj ection Unknown 01/21/2021 Administration Of Flu Vaccine Inj ection Kalpesh Pollack MD 09/15/2020 Administration Of Flu Vaccine Inj ection Jennifer Rhodes, [facility] 09/06/2019 Administration Of Flu Vaccine Inj ection Merlin Herrera, [facility] 10/12/2017 Administration Of Flu Vaccine Inj ection Kalpesh Pollack MD 09/07/2016 Administration Of Flu Vaccine Inj ection Kalpesh Pollack MD 09/04/2014 Immunizations CPT Code Status Date Vaccine Lot # [id number] Given 09/15/2020 Influenza Vaccin e Quadrivalent Preser/Antibiotic Free Im Use [id number] Given 09/06/2019 Influenza Vaccin e Quadrivalent Preser/Antibiotic Free Im Use 192617 99523 Given 10/12/2017 Influenza Vaccin e Quadrivalent Preser/Antibiotic Free Im Use 517257 08730 Given 12/16/2016 Pneumovax 23 69539 Given 09/23/2016 Adacel- Tetanus Diphtheria P ertussis (Age64 & Under) [id number] Q2037 Given 09/07/2016 Fluvirin Virus Vaccine 40159 01 41885 Given 11/11/2014 Prevnar 13 [id number] Q2037 Given 09/04/2014 Fluvirin Virus Vaccine 15612 01 Q2037 Given 09/18/2013 Fluvirin Virus Vaccine 00550 01 13421 Given 10/01/2008 Influenza Virus Vaccine 21447 Given 10/08/2003 Tetanus Toxoid Vital Signs Date Vital Result Comment 06/09/2021 8:43am BP Systolic 144 mmHg BP Diastolic 82 mmHg Heart Rate 78 /min Height 72 inches 6'0" Weight 292.00 lb O2 % BldC Oximetry 97 % BMI (Body Mass Index) 39.6 kg/m2 03/26/2021 11:27am BP Systolic 142 mmHg BP Diastolic 84 mmHg Heart Rate 60 /min Height 72 inches 6'0" Weight 288.00 lb O2 % BldC Oximetry 98 % BMI (Body Mass Index) 39.1 kg/m2 Results Test Acquired Date Facility Test Result H/L Range Note A1c 06/09/2021 [facility] Industrial Technology Teacher: [place] [address] [phone] Hba1c 10.6 % High <5.7 1 Est Avg Glucose 258 mg/dL High 60 - 110 Comprehensive Chem Profile 06/09/2021 [facility] Industrial Technology Teacher: [place] [address] [phone] Glucose 296 mg/dL High 74 - 99 2 BUN 32 mg/dL High 7 - 18 3 Creatinine 1.3 mg/dL 0.6 - 1.3 Sodium 137 mEq/L 136 - 145 Potassium 4.2 mEq/L 3.5 - 5.1 Chloride 99 mEq/L 98 - 107 Carbon Dioxide 27 mEq/L 21 - 32 Calcium 10.7 mg/dL High 8.5 - 10.1 Alk. Phosphatase 85 mg/dL 46 - 116 Total Bilirubin 0.3 mg/dL 0.2 - 1.0 Ast (Sgot) 28 U/L 15 - 37 Alt (SGPT) 47 U/L 12 - 78 Albumin 3.5 g/dL 3.4 - 5.0 Total Protein 7.7 g/dL 6.4 - 8.2 A/G Ratio 0.83 CALC Low 1.00 - 1.90 GFR 54 mL/min Low >60 GFR >= 60 mL/min >60 4 Lipid Profile 06/09/2021 [facility] Industrial Technology Teacher: [place] [address] [phone] Cholesterol 223 mg/dL High 131 - 200 Triglycerides 312 mg/dL High 30 - 150 HDL Cholesterol 38 mg/dL 35 - 60 LDL (Calculated) 123 CALC 50 - 159 Complete Blood Count 06/09/2021 [facility] Industrial Technology Teacher: [place] [address] [phone] WBC 7.1 x10*3/UL 4.1 - 10.9 RBC 4.43 x10*6/UL 4.20 - 6.30 Hemoglobin 13.2 g/dL 12.0 - 18.0 Hematocrit 38.6 % 37.0 - 51.0 MCV 87.2 fL 80.0 - 97.0 MCH 29.8 pg 26.0 - 32.0 MCHC 34.1 g/dL 31.0 - 38.0 RDW 12.8 % 11.6 - 13.7 PLT 202 x10*3/UL 140 - 440 MPV 8.1 FL 7.8 - 11.0 Lymph % 22.3 % 10.0 - 58.5 Mid % 6.4 % 1.7 - 9.3 Neut % 71.3 % 37.0 - 92.0 Lymph # 1.6 x10*3/UL 0.6 - 4.1 Mid # 0.4 x10*3/UL 0.1 - 0.6 Neut # 5.1 x10*3/UL 2.0 - 7.8 Liver Profile 04/22/2021 [facility] [address] [place] [address] [phone] Ast/Sgot 26 U/L Normal 7-37 Alt/SGPT 46 U/L Normal 12-78 Alkaline Phosphatase 91 U/L Normal 45-117 Bilirubin,Total 0.5 mg/dL Normal 0.2-1.0 Bilirubin,Direct 0.2 mg/dL Normal 0.0-0.2 Total Protein 7.7 GM/DL Normal 6.4-8.2 Albumin 3.2 GM/DL Normal 3.2-5.2 Albumin/Globulin Ratio 0.7 Normal Laboratory test finding 04/22/2021 [facility] [address] [place] [address] [phone] Lactic Acid Sepsis Protocol 2.1 mmol/L Critical high 0 .4-2.0 5 Basic Metabolic Profile 04/22/[address] [address] [phone] Glucose, Fasting 234 mg/dL High 70-100 Blood Urea Nitrogen 19 mg/dL High 7-18 Creatinine For GFR 1.15 mg/dL Normal 0.70-1.30 Glomerular Filtration Rate > 60.0 Normal >42 6 Sodium Level 136 mEq/L Normal 136-145 Potassium Serum 4.0 mEq/L Normal 3.5-5.1 Chloride Level 100 mEq/L Normal 98-107 Carbon Dioxide Level 26 mEq/L Normal 21-32 Anion Gap 10 mEq/L Normal 8-16 Calcium Level 9.6 mg/dL Normal 8.8-10.2 Cardiac Marker Panel 04/22/2021 [facility] [address] [place], [place] [id number] [phone] CPK Creatine Phosphokinase 78 U/L Normal 39-30 8 CK-MB Value Mass 1.2 NG/ML Normal <3.6 MB/CK Relative Index 1.54 Normal < Or =4 7 Troponin I < 0.02 NG/ML Normal < 0.10 8 CBC With Differential 04/22/2021 [address] [place] [address] [phone] White Blood Count 9.5 10 Normal 4.0-10.0 Red Blood Count 4.24 10 Low 4.30-6.10 Hemoglobin 12.7 g/dL Low 13.5-17.5 Hematocrit 37.8 % Low 42.0-52.0 Mean Corpuscular Volume 89.2 fl Normal 80.0-96.0 Mean Corpuscular Hemoglobin 30.0 pg Normal 27.0-33.0 Mean Corpuscular HGB Conc 33.6 g/dL Normal 32.0-36.5 Red Cell Distribution Width 12.9 % Normal 11.5-14.5 Platelet Count, Automated 200 10 Normal 150-450 Neutrophils % 73.8 % High 36.0-66.0 Lymph % 17.3 % Low 24.0-44.0 Lamar % 5.9 % Normal 2.0-8.0 Eos % 2.0 % Normal 0.0-3.0 Baso % 0.6 % Normal 0.0-1.0 Immature Granulocyte % 0.4 % Normal 0-3.0 Nucleated Red Blood Cell % 0.0 % Normal 0-0 Neutrophils # 7.0 10 Normal 1.5-8.5 Lymph # 1.7 10 Normal 1.5-5.0 Lamar # 0.6 10 Normal 0.0-0.8 Eos # 0.2 10 Normal 0.0-0.5 Baso # 0.1 10 Normal 0.0-0.2 Respiratory Panel 04/22/2021 [facility] nter [address] [place] [id number] [phone] Respiratory Panel This respiratory <SEE NOTE> 9 Blood Culture 04/22/2021 [facility] nter [address] [place] [id number] [phone] Blood Culture No growth after <SEE NOTE> 10 Laboratory test finding 04/12/[address] [address] [phone] Bedside Glucose 262 mg/dL High 83-110 Laboratory test finding 04/12/[address] [address] [phone] Bedside Glucose 283 mg/dL High 83-110 Laboratory test finding 03/17/[address] [address] [phone] Lactic Acid Sepsis Protocol 2.0 mmol/L Normal 0.4- 2.0 11 Type & Screen -Incl Blood Type,Raghu,AB SC 03/17/[address] [address] [phone] Blood Type A NEGATIVE Normal AB Screen (Indirect Kevin)Vis NEGATIVE Normal Laboratory test finding 03/17/[address] [address] [phone] Lipase 140 U/L Normal 73-393 Basic Metabolic Profile 03/17/[address] [address] [phone] Glucose, Fasting 271 mg/dL High 70-100 Blood Urea Nitrogen 24 mg/dL High 7-18 Creatinine For GFR 1.43 mg/dL High 0.70-1.30 Glomerular Filtration Rate 51.8 Normal >42 1 2 Sodium Level 135 mEq/L Low 136-145 Potassium Serum 3.8 mEq/L Normal 3.5-5.1 Chloride Level 100 mEq/L Normal 98-107 Carbon Dioxide Level 28 mEq/L Normal 21-32 Anion Gap 7 mEq/L Low 8-16 Calcium Level 9.6 mg/dL Normal 8.8-10.2 Liver Profile 03/17/2021 [facility] n[facility] [address] [id number] [phone] Ast/Sgot 36 U/L Normal 7-37 Alt/SGPT 42 U/L Normal 12-78 Alkaline Phosphatase 87 U/L Normal 45-117 Bilirubin,Total 0.3 mg/dL Normal 0.2-1.0 Bilirubin,Direct 0.1 mg/dL Normal 0.0-0.2 Total Protein 7.5 GM/DL Normal 6.4-8.2 Albumin 3.2 GM/DL Normal 3.2-5.2 Albumin/Globulin Ratio 0.7 Normal Cardiac Marker Panel 03/17/2021 [facility] [address] [place] [address] [phone] CPK Creatine Phosphokinase 78 U/L Normal 39-30 8 CK-MB Value Mass < 1.0 NG/ML Normal <3.6 MB/CK Relative Index 1.28 Normal < Or =4 13 Troponin I < 0.02 NG/ML Normal < 0.10 14 CBC With Differential 03/17/2021 [address] [place] [address] [phone] White Blood Count 9.6 10 Normal 4.0-10.0 Red Blood Count 4.30 10 Normal 4.30-6.10 Hemoglobin 13.2 g/dL Low 13.5-17.5 Hematocrit 39.0 % Low 42.0-52.0 Mean Corpuscular Volume 90.7 fl Normal 80.0-96.0 Mean Corpuscular Hemoglobin 30.7 pg Normal 27.0-33.0 Mean Corpuscular HGB Conc 33.8 g/dL Normal 32.0-36.5 Red Cell Distribution Width 13.3 % Normal 11.5-14.5 Platelet Count, Automated 204 10 Normal 150-450 Neutrophils % 66.7 % High 36.0-66.0 Lymph % 23.9 % Low 24.0-44.0 Lamar % 5.9 % Normal 2.0-8.0 Eos % 2.6 % Normal 0.0-3.0 Baso % 0.5 % Normal 0.0-1.0 Immature Granulocyte % 0.4 % Normal 0-3.0 Nucleated Red Blood Cell % 0.0 % Normal 0-0 Neutrophils # 6.4 10 Normal 1.5-8.5 Lymph # 2.3 10 Normal 1.5-5.0 Lamar # 0.6 10 Normal 0.0-0.8 Eos # 0.3 10 Normal 0.0-0.5 Baso # 0.1 10 Normal 0.0-0.2 Complete Blood Count 02/23/2021 [facility] Industrial Technology Teacher: [place] [address] [phone] WBC 8.7 x10*3/UL 4.1 - 10.9 RBC 4.53 x10*6/UL 4.20 - 6.30 Hemoglobin 13.8 g/dL 12.0 - 18.0 Hematocrit 39.7 % 37.0 - 51.0 MCV 87.6 fL 80.0 - 97.0 MCH 30.6 pg 26.0 - 32.0 MCHC 34.9 g/dL 31.0 - 38.0 RDW 13.1 % 11.6 - 13.7 PLT 219 x10*3/UL 140 - 440 MPV 8.0 FL 7.8 - 11.0 Lymph % 23.8 % 10.0 - 58.5 Mid % 5.4 % 1.7 - 9.3 Neut % 70.8 % 37.0 - 92.0 Lymph # 2.0 x10*3/UL 0.6 - 4.1 Mid # 0.6 x10*3/UL 0.1 - 0.6 Neut # 6.1 x10*3/UL 2.0 - 7.8 Basic Metabolic Panel 02/23/2021 [facility] Industrial [employer] Teacher: [place] [address] [phone] Glucose 326 mg/dL High 74 - 99 15 BUN 24 mg/dL High 7 - 18 Creatinine 1.5 mg/dL High 0.6 - 1.3 Sodium 133 mEq/L Low 136 - 145 Potassium 4.0 mEq/L 3.5 - 5.1 Chloride 96 mEq/L Low 98 - 107 Carbon Dioxide 27 mEq/L 21 - 32 Calcium 9.7 mg/dL 8.5 - 10.1 GFR 46 mL/min Low >60 GFR 56 mL/min Low >60 16 Laboratory test finding 02/23/2021 [facility] Industrial Technology Teacher: Dr Kalpesh Pollack [place], [place] [id number] [phone] Thyroid Stimulating Hormone 1.17 uIU/mL 0.3 6 - 3.74 Ua Dipstick Only 02/23/2021 [facility] Industrial Technology Teacher: Dr Kalpesh Pollack [place], [place] [id number] [phone] Urine Color YELLOW Yellow Urine Appearance CLEAR Clear Urine PH 6.0 units 5.0 - 9.0 Urine Specific [place] 1.020 1.005 - 1.030 Urine Leukocytes NEGATIVE Negative Urine Blood NEGATIVE Negative Urine Protein 3+ Abnormal Negative -Trace Urine Glucose 500 mg/dL mg/dL Abnormal Negative Urine Nitrite NEGATIVE Negative Urine Ketone NEGATIVE mg/dL Negative Urine Bilirubin NEGATIVE Negative Urine Urobilinogen 0.2 mg/dL 0.2 - 1.0 Lyme Disease SCRN With Confirm 02/23/2021 [address] [place] [address] [phone] Lyme Disease IgG/IgM Antibodie <0.91 ISR Normal 0 .00-0.90 17 Lyme Disease IgM Ab Quantitati <0.80 index Normal 0.00-0.79 18 Complete Blood Count 01/05/2021 [facility] Industrial Technology Teacher: Dr Kalpesh Pollack [place], [place] [id number] [phone] WBC 9.0 x10*3/UL 4.1 - 10.9 RBC 4.63 x10*6/UL 4.20 - 6.30 Hemoglobin 14.1 g/dL 12.0 - 18.0 Hematocrit 40.5 % 37.0 - 51.0 MCV 87.5 fL 80.0 - 97.0 MCH 30.4 pg 26.0 - 32.0 MCHC 34.8 g/dL 31.0 - 38.0 RDW 12.7 % 11.6 - 13.7 PLT 225 x10*3/UL 140 - 440 MPV 8.1 FL 7.8 - 11.0 Lymph % 23.1 % 10.0 - 58.5 Mid % 5.4 % 1.7 - 9.3 Neut % 71.5 % 37.0 - 92.0 Lymph # 2.0 x10*3/UL 0.6 - 4.1 Mid # 0.6 x10*3/UL 0.1 - 0.6 Neut # 6.4 x10*3/UL 2.0 - 7.8 Comprehensive Chem Profile 01/05/2021 [facility] [employer] Teacher: [place] [address] [phone] Glucose 395 mg/dL High 74 - 99 19 BUN 18 mg/dL 7 - 18 Creatinine 1.4 mg/dL High 0.6 - 1.3 Sodium 133 mEq/L Low 136 - 145 20 Potassium 4.4 mEq/L 3.5 - 5.1 Chloride 96 mEq/L Low 98 - 107 Carbon Dioxide 28 mEq/L 21 - 32 Calcium 9.5 mg/dL 8.5 - 10.1 Alk. Phosphatase 95 mg/dL 46 - 116 Total Bilirubin 0.5 mg/dL 0.2 - 1.0 Ast (Sgot) 43 U/L High 15 - 37 Alt (SGPT) 64 U/L 12 - 78 Albumin 3.6 g/dL 3.4 - 5.0 Total Protein 8.4 g/dL High 6.4 - 8.2 A/G Ratio 0.75 CALC Low 1.00 - 1.90 GFR 50 mL/min Low >60 GFR >= 60 mL/min >60 21 Laboratory test finding 01/05/2021 [facility] [employer] Teacher: [place] [address] [phone] Thyroid Stimulating Hormone 1.67 uIU/mL 0.3 6 - 3.74 A1c 01/05/2021 [facility] [employer] Teacher: [place] [address] [phone] Hba1c 11.6 % High <5.7 22 Est Avg Glucose 286 mg/dL High 60 - 110 1 Lab Result Notes: Pre-Diabetes 5.7 - 6.4 % Diabetes = or > 6.5% 2 100-125 mg/dL PRE-DIABET ES/FASTING >126 mg/dL DIABETES/FASTING 3 NOTE: BUN,CALCIUM VERIFIED 4 CHRONIC KIDNEY DISEASE STAGI NG PER NKF STAGE I & II GFR >= 60 NORMAL TO MILDLY DECREASED STAGE III GFR 30-59 MODERATELY DECREASED STAGE IV GFR 15-29 SEVERELY DECREASED STAGE V GFR <15 VERY LITTLE GFR LEFT ESRD GFR <15 ON BILL CHECKER 5 Y/N query for Sepsis Lactate Rule: Y 6 Units are mL/min/1.73 m2 Chronic Kidney Disease Staging per NKF: Stage I & II GFR >=60 Normal to Mildly Decreased Stage III GFR 30-59 Moderately Decreased Stage IV GFR 15-29 Severely Decreased Stage V GFR <15 Very Little GFR Left ESRD GFR <15 on BILL CHECKER 7 DIAGNOSIS CRITERIA MMB ng/ml Relative Index (RI) NON-AMI < or = 5 N/A GONZALEZ ZONE > 5 < or = 4 AMI > 5 > 4 8 Troponin I Reference Interva l for [employer] LOCI: 99th Percentile= 0.00-0.045 ng/ml Risk Stratification: <= 0.10 ng/ml Decreased Risk for Adverse Clinical Events. 0.10-1.50 ng/ml Increased Risk for Adv erse Clinical Events. Evaluation of additional criterion and/or repeat testing in 2-6 hours is suggested to rule out myocardial damage. >= 1.50 ng/ml Indicative of Myocardial Injury. 9 This respiratory PCR panel d etects Influenza A H1, H3 and 2009 H1 viruses, Influenza B virus, Resp iratory Syncytial Virus, Human metapneumovirus, Parainfluenza virus 1, 2, 3 and 4, Adenovirus, Rhinovirus/Enterovirus, Coronavirus HKU1, NL63, OC43, 229E and SARS-CoV-2 (COVID 19), Bordetella pertussis, Bordetella parapertussis, Mycoplasma pneumoniae and Chlamydia pneumoniae. POSITIVE by MULTIPLEXED NUCLEIC ACID PCR SARS-CoV-2 (COVID 19) NEGATIVE - SARS-CoV-2 (COVID19) ORGANISM 1: HUMAN RHINOVIRUS/ENTEROVIRUS Rhinovirus is noted as causing the "common cold", but may also be involved in precipitating asthma attacks and severe complications. Enteroviruses can be associated with different clinical manifestations, including non-specific respiratory illness. These viruses are closely related and therefore not able to be reliably differentiated. ORGANISM 1: HUMAN RHINOVIRUS/ENTEROVIRUS 10 No growth after 72 hours . A ll specimens observed for 5 days. Results final at that time. No growth after 48 hours . All specimens observed for 5 days. Results final at that time. No growth after 24 hours . All specimens observed for 5 days. Results final at that time. NO GROWTH AFTER 5 DAYS 11 Y/N query for Sepsis Lactate Rule: Y 12 Units are mL/min/1.73 m2 Chronic Kidney Disease Staging per NKF: Stage I & II GFR >=60 Normal to Mildly Decreased Stage III GFR 30-59 Moderately Decreased Stage IV GFR 15-29 Severely Decreased Stage V GFR <15 Very Little GFR Left ESRD GFR <15 on BILL CHECKER 13 DIAGNOSIS CRITERIA MMB ng/ml Relative Index (RI) NON-AMI < or = 5 N/A GONZALEZ ZONE > 5 < or = 4 AMI > 5 > 4 14 Troponin I Reference Interva l for [employer] LOCI: 99th Percentile= 0.00-0.045 ng/ml Risk Stratification: <= 0.10 ng/ml Decreased Risk for Adverse Clinical Events. 0.10-1.50 ng/ml Increased Risk for Adv erse Clinical Events. Evaluation of additional criterion and/or repeat testing in 2-6 hours is suggested to rule out myocardial damage. >= 1.50 ng/ml Indicative of Myocardial Injury. 15 100-125 mg/dL PRE-DIABET ES/FASTING >126 mg/dL DIABETES/FASTING 16 CHRONIC KIDNEY DISEASE STAGI NG PER NKF STAGE I & II GFR >= 60 NORMAL TO MILDLY DECREASED STAGE III GFR 30-59 MODERATELY DECREASED STAGE IV GFR 15-29 SEVERELY DECREASED STAGE V GFR <15 VERY LITTLE GFR LEFT ESRD GFR <15 ON BILL CHECKER 17 Negative <0.91 Equivocal 0.91 - 1.09 Positive >1.09 18 Negative <0.80 Equivocal 0.80 - 1.19 Positive >1.19 . IgM levels may peak at 3-6 weeks post infection, then gradually decline. Performed at: RN - [facility] [address] [id number] Industrial Technology Teacher: Beverly Smith MD, Phone: [phone] NOTE: RESULT VERIFIED. 100-125 mg/dL PRE-DIABETES/FASTING >126 mg/dL DIABETES/FASTING 20 NOTE: RESULT VERIFIED. 21 CHRONIC KIDNEY DISEASE STAGI NG PER NKF STAGE I & II GFR >= 60 NORMAL TO MILDLY DECREASED STAGE III GFR 30-59 MODERATELY DECREASED STAGE IV GFR 15-29 SEVERELY DECREASED STAGE V GFR <15 VERY LITTLE GFR LEFT ESRD GFR <15 ON BILL CHECKER 22 NOTE: RESULT VERIFIED. Lab Result Notes: Pre-Diabetes 5.7 - 6.4 % Diabetes = or > 6.5% Procedures Date Code Description Status 06/09/2021 76468 Office/Outpatient Established Mo d MDM 30-39 Min Completed 05/11/2021 36269 Chronic Care MGMT 20 Mins Clinical Staff Time Per Calendar Month Completed 04/06/2021 85639 Complex Chronic Care MGMT Servic e Ea Addl 30 Min Completed 04/06/2021 71799 Complex Chronic Care Management SVC 1St 60 Min Completed 03/26/2021 52650 Jane Cre SRV W/I 7 Days Of DC, C omm W/I 2 Dys Med Rec Completed 03/03/2021 36769 Complex Chronic Care MGMT Servic e Ea Addl 30 Min Completed 03/03/2021 78417 Complex Chronic Care Management SVC 1St 60 Min Completed 02/23/2021 03605 Office/Outpatient Established Mo d MDM 30-39 Min Completed 01/12/2021 63320 Chronic Care MGMT 20 Mins Clinical Staff Time Per Calendar Month Completed 01/12/2021 03688 Chronic Care Management Services Ea Addl 20 Min Completed 01/08/2021 62302 Complex Chronic Care MGMT Servic e Ea Addl 30 Min Completed 01/08/2021 49217 Complex Chronic Care Management SVC 1St 60 Min Completed 01/05/2021 51390 Office/Outpatient Established Mo d MDM 30-39 Min Completed 06/10/2020 [id number] Mammogram Completed 12/23/2019 [id number] Colonoscopy Completed 02/10/2016 [id number] Diabetic Retinal Eye Exam [facility] 10/29/2015 [id number] Colonoscopy Completed 08/03/2013 [id number] Diabetic Retinal Eye Exam [facility] 05/11/2011 [id number] Diabetic Retinal Eye Exam [facility] 09/05/2008 [id number] Colonoscopy Completed Medical Devices Description No Information Available Encounters Type Date Location Provider Dx Diagnosis Office Visit 06/09/2021 8:40a [facility] Kalpesh Pollack MD I13.0 Hyp hrt & chr kdny dis w hrt fail and st g 1-4/unsp chr kdny I50.32 Chronic diastolic (congestiv e) heart failure N18.31 Chronic kidney disease, stag e 3a E11.65 Type 2 diabetes mellitus wit h hyperglycemia E11.42 Type 2 diabetes mellitus wit h diabetic polyneuropathy G47.33 Obstructive sleep apnea (humberto lt) (pediatric) E66.01 Morbid (severe) obesity due to excess calories Z68.39 Body mass index [BMI] 39.0-3 9.9, adult E78.00 Pure hypercholesterolemia, u nspecified Office Visit 03/26/2021 11:20a [facility], [employer] K57.33 Dvtrcli of lg int w/o perforation or abs cess w bleeding E11.42 Type 2 diabetes mellitus wit h diabetic polyneuropathy E11.65 Type 2 diabetes mellitus wit h hyperglycemia I13.0 Hyp hrt & chr kdny dis w hrt fail and stg 1-4/unsp chr kdny I50.32 Chronic diastolic (congestiv e) heart failure N18.31 Chronic kidney disease, stag e 3a G47.33 Obstructive sleep apnea (humberto lt) (pediatric) H92.09 Otalgia, unspecified ear R42 Dizziness and giddiness E66.01 Morbid (severe) obesity due to excess calories Z68.39 Body mass index [BMI] 39.0-3 9.9, adult Office Visit 02/23/2021 1:00p [facility] 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 nsulin I13.0 Hyp hrt & chr kdny dis w hrt fail and stg 1-4/unsp chr kdny I50.32 Chronic diastolic (congestiv e) heart failure N18.31 Chronic kidney disease, stag e 3a K75.81 Nonalcoholic steatohepatitis (Velez) R10.13 Epigastric pain G47.00 Insomnia, unspecified F41.9 Anxiety disorder, unspecifie d Z13.89 Encounter for screening for other disorder Assessments Date Code Description Provider 06/09/2021 I13.0 Hypertensive heart a nd chronic kidney disease with heart failure and stage 1 through stage 4 chronic kidney disease, or unspecified chronic kidney disease Kalpesh Pollack MD 06/09/2021 I50.32 Chronic diastolic (congestive) h eart failure Kalpesh Pollack MD 06/09/2021 N18.31 Chronic kidney disease, stage 3a Kalpesh Pollack MD 06/09/2021 E11.65 Type 2 diabetes mellitus with hy perglycemia Kalpesh Pollack MD 06/09/2021 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 Kalpesh Pollack MD 06/09/2021 G47.33 Obstructive sleep apnea (adult) (pediatric) Kalpesh Pollack MD 06/09/2021 E66.01 Morbid (severe) obesity due to e xcess calories Kalpesh Pollack MD 06/09/2021 Z68.39 Body mass index [BMI] 39.0-39.9, adult Kalpesh Pollack MD 06/09/2021 E78.00 Pure hypercholesterolemia, unspe cified Kalpesh Pollack MD 05/11/2021 I13.0 Hypertensive heart a nd chronic kidney disease with heart failure and stage 1 through stage 4 chronic kidney disease, or unspecified chronic kidney disease Kalpesh Pollack MD 05/11/2021 I50.32 Chronic diastolic (congestive) h eart failure Kalpesh Pollack MD 05/11/2021 E11.65 Type 2 diabetes mellitus with hy perglycemia Kalpesh Pollack MD 04/06/2021 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 Kalpesh Pollack MD 04/06/2021 I13.0 Hypertensive heart a nd chronic kidney disease with heart failure and stage 1 through stage 4 chronic kidney disease, or unspecified chronic kidney disease Kalpesh Pollack MD 04/06/2021 I50.32 Chronic diastolic (congestive) h eart failure Kalpesh Pollack MD 03/26/2021 K57.33 Diverticulitis of la rge intestine without perforation or abscess with bleeding Vania Friedman [facility] 03/26/2021 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 Vania Friedman [facility] 03/26/2021 E11.65 Type 2 diabetes mellitus with hy perglycemia Vania Friedman [facility] 03/26/2021 I13.0 Hypertensive heart a nd chronic kidney disease with heart failure and stage 1 through stage 4 chronic kidney disease, or unspecified chronic kidney disease Vania Friedman [facility] 03/26/2021 I50.32 Chronic diastolic (congestive) h eart failure Vania Friedman [facility] 03/26/2021 N18.31 Chronic kidney disease, stage 3a Vania Friedman [facility] 03/26/2021 G47.33 Obstructive sleep apnea (adult) (pediatric) Vania Friedman [facility] 03/26/2021 H92.09 Otalgia, unspecified ear Vania Friedman [facility] 03/26/2021 R42 Dizziness and giddiness Vania Granados, [facility] 03/26/2021 E66.01 Morbid (severe) obesity due to e xcess calories Vania Friedman [facility] 03/26/2021 Z68.39 Body mass index [BMI] 39.0-39.9, adult Vania Friedman [facility] 03/03/2021 K57.33 Diverticulitis of la rge intestine without perforation or abscess with bleeding Kalpesh Pollack MD 03/03/2021 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 Kalpesh Pollack MD 03/03/2021 N18.31 Chronic kidney disease, stage 3a Kalpesh Pollack MD 03/03/2021 E66.01 Morbid (severe) obesity due to e xcess calories Kalpesh Pollack MD 02/23/2021 R53.83 Other fatigue FLORY Lambert JR 02/23/2021 R68.84 Jaw pain FLORY Lambert JR 02/23/2021 H92.03 Otalgia, bilateral FLORY Arevalo JR 02/23/2021 F41.9 Anxiety disorder, unspecified Ro dora Mcconnell JR, FLORY 02/23/2021 R19.4 Change in bowel habit FLORY Rodriguez JR 02/23/2021 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 FLORY Cortés JR 02/23/2021 E11.65 Type 2 diabetes mellitus with hy perglycemia FLORY Cortés JR 02/23/2021 I13.0 Hypertensive heart a nd chronic kidney disease with heart failure and stage 1 through stage 4 chronic kidney disease, or unspecified chronic kidney disease FLORY Cortés JR 02/23/2021 I50.32 Chronic diastolic (congestive) h eart failure FLORY Cortés JR 02/23/2021 N18.31 Chronic kidney disease, stage 3a FLORY Cortés JR 02/23/2021 R05 Cough FLORY Lambert JR 02/23/2021 W57.xxxA Bitten or stung by n onvenomous insect and other nonvenomous arthropods, initial encounter FLORY Cortés JR 01/12/2021 F41.9 Anxiety disorder, unspecified Co yumiko Pollack MD 01/12/2021 E66.01 Morbid (severe) obesity due to e xcess calories Kalpesh Pollack MD 01/12/2021 E78.00 Pure hypercholesterolemia, unspe cified Kalpesh Pollack MD 01/12/2021 K57.32 Diverticulitis of la rge intestine without perforation or abscess without bleeding Kalpesh Pollack MD 01/08/2021 F41.9 Anxiety disorder, unspecified Co yumiko Pollack MD 01/08/2021 E66.01 Morbid (severe) obesity due to e xcess calories Kalpesh Pollack MD 01/08/2021 E78.00 Pure hypercholesterolemia, unspe cified Kalpesh Pollack MD 01/08/2021 K57.32 Diverticulitis of la rge intestine without perforation or abscess without bleeding Kalpesh Pollack MD 01/05/2021 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 Kalpesh Pollack MD 01/05/2021 E11.65 Type 2 diabetes mellitus with hy perglycemia Kalpesh Pollack MD 01/05/2021 Z79.4 [facility] (current) use of insul in Kalpesh Pollack MD 01/05/2021 I13.0 Hypertensive heart a nd chronic kidney disease with heart failure and stage 1 through stage 4 chronic kidney disease, or unspecified chronic kidney disease Kalpesh Pollack MD 01/05/2021 I50.32 Chronic diastolic (congestive) h eart failure Kalpesh Pollack MD 01/05/2021 N18.31 Chronic kidney disease, stage 3a Kalpesh Pollack MD 01/05/2021 K75.81 Nonalcoholic steatohepatitis (Na sh) Kalpesh Pollack MD 01/05/2021 R10.13 Epigastric pain Kalpesh aranda MD 01/05/2021 G47.00 Insomnia, unspecified Kalpesh Pollack MD 01/05/2021 F41.9 Anxiety disorder, unspecified Co llbronwyn Pollack MD 01/05/2021 Z13.89 Encounter for screening for othe r disorder Kalpesh Pollack MD Plan of Treatment Future Appointment(s):* 09/15/2021 2:30 pm - Kalpesh Pollack MD at [facility] 01/05/2021 - Kalpesh Pollack MD* E11.42 Type 2 diabetes mellitus with diabetic polyneuropathy * E11.65 Type 2 diabetes mellitus with hyperglycemia* Comments:* ABC's meet goal.Diabetic foot and eye exams up to date. TLC discussed. Glycemic index discussed. * Z79.4 [facility] (current) use of insulin * I13.0 Hypertensive heart and chronic kidney disease with heart failure and stage 1 through stage 4 chronic kidney disease, or unspecified chronic kidney disease * I50.32 Chronic diastolic (congestive) heart failure * N18.31 Chronic kidney disease, stage 3a * K75.81 Nonalcoholic steatohepatitis (Velez) * R10.13 Epigastric pain * G47.00 Insomnia, unspecified * F41.9 Anxiety disorder, unspecified * Z13.89 Encounter for screening for other disorder * All * New Medication:* Gabapentin 300 mg - 1 pill every am and 2 every evening * Escitalopram Oxalate 10 mg - 1 by mouth every day Functional Status Description No Information Available Mental Status Description No Information Available Referrals Refer to Reason for Referral Status Appt Date Mor Greenberg MD CONSULT FOR EAR PAIN, VERTIG Lavelle. PT HAS BEEN REFERRED TO [facility] Closed 05/04/2021 [facility] [address] [address] [phone] Elizabeth Peterson,JOSE TWX OPERATOR CONSULT FOR LESIONS LT HAND Closed 01/12/2021 [facility] Nurse Practitioners [place], [place] [phone]
--- OUTSIDE RECORDS SUMMARY | 2021-09-20 14:42 | CCD | Continuity of Care Document ---
Author Author Alcon Pollack MD Organization Unknown Address [address] [address] Phone [phone] Care Team Providers Care Dye House Worker Name Role Phone Kalpesh Pollack JR, MD AUTM Unavailable Maxine Torrez OD AUTM Unavailable Artur Lee MD AUTM [phone] [facility] AUTM [phone] Problems Active Problems Provider Date Impotence of [...] Ordering Provide r Date Fluticasone Propionate Nasal [place] 24- H our 50mcg/Act Suspension 1-2 puffs [...] Kalpesh Pollack MD 10/17/2019 Fluticasone Propionate Nasal [place] 50mcg/Act Suspension 2 sprays in each nostril daily for two weeks 9.900ml H69 .93 Kalpesh Pollack MD 10/09/2019 Zolpidem Tartrate 10mg Tablets 1 by mouth as needed for sleep 30tabs Kalpesh Pollack MD 2018 Erythrocin Stearate 250mg Tablets Kalpesh Pollack MD 10/03/2018 Albuterol Sulfate (2 .5mg/3ML) 0.083% Nebulizer use via aerosol neb four times a day as needed 360ml Nel Luna FNP 06/13/2017 Freestyle Lite Test Strips test [...] Of Flu Vaccine Inj ection Jennifer Rhodes, [facility] 09/06/2019 Administration Of Flu Vaccine Inj ection Merlin Herrera, [facility] 10/12/2017 Administration Of Flu Vaccine Inj ection Kalpesh Pollack MD 09/07/2016 Administration Of Flu Vaccine Inj ection Kalpesh Pollack MD 09/04/2014 Immunizations CPT Code Status Date Vaccine Lot # [id number] Given 09/15/2020 Influenza Vaccin e Quadrivalent Preser/Antibiotic Free Im Use [id number] 14537 Given 09/06/2019 Influenza Vaccin e Quadrivalent Preser/Antibiotic Free Im Use 546274 30958 Given 10/12/2017 Influenza Vaccin e Quadrivalent Preser/Antibiotic Free Im Use [id number] 56338 Given 12/16/2016 Pneumovax 23 12154 Given 09/23/2016 Adacel- Tetanus Diphtheria P ertussis (Age64 & Under) [id number] Q2037 Given 09/07/2016 Fluvirin Virus Vaccine 83492 01 88942 Given 11/11/2014 Prevnar 13 [id number] Q2037 Given 09/04/2014 Fluvirin Virus Vaccine 67368 01 Q2037 Given 09/18/2013 Fluvirin Virus Vaccine 21340 01 89149 Given 10/01/2008 Influenza Virus Vaccine 19823 Given 10/08/2003 Tetanus Toxoid Vital Signs Date [...] Test Result H/L Range Note A1c 06/09/2021 [facility] Gamb Cutter: [place] [address] [phone] Hba1c 10.6 % High <5.7 1 Est Avg Glucose 258 mg/dL High 60 - 110 Comprehensive Chem Profile 06/09/2021 [facility] Gamb Cutter: [place] [address] [phone] Glucose 296 mg/dL High 74 - 99 [...] 60 mL/min >60 4 Lipid Profile 06/09/2021 [facility] Gamb Cutter: [place] [address] [phone] Cholesterol 223 mg/dL High 131 - 200 Triglycerides 312 mg/dL High 30 - 150 HDL Cholesterol 38 mg/dL 35 - 60 LDL (Calculated) 123 CALC 50 - 159 Complete Blood Count 06/09/2021 [facility] Gamb Cutter: [place] [address] [phone] WBC 7.1 x10*3/UL 4.1 - 10.9 RBC [...] x10*3/UL 2.0 - 7.8 Liver Profile 04/22/2021 [facility] [address] [place] [address] [phone] Ast/Sgot 26 U/L Normal 7-37 Alt/SGPT 46 U/L Normal 12-78 Alkaline Phosphatase 91 U/L Normal 45-117 Bilirubin,Total 0.5 mg/dL Normal 0.2-1.0 Bilirubin,Direct 0.2 mg/dL Normal 0.0-0.2 Total Protein 7.7 GM/DL Normal 6.4-8.2 Albumin 3.2 GM/DL Normal 3.2-5.2 Albumin/Globulin Ratio 0.7 Normal Laboratory test finding 04/22/2021 [facility] [address] [place] [address] [phone] Lactic Acid Sepsis Protocol 2.1 mmol/L Critical high 0 .4-2.0 5 Basic Metabolic Profile 04/22/[address] [address] [phone] Glucose, Fasting 234 mg/dL High 70-100 Blood [...] mg/dL Normal 8.8-10.2 Cardiac Marker Panel 04/22/2021 [facility] enter [address] [place], [place] [id number] [phone] CPK Creatine Phosphokinase 78 U/L Normal 39-30 8 CK-MB Value Mass 1.2 NG/ML Normal <3.6 MB/CK Relative Index 1.54 Normal < Or =4 7 Troponin I < 0.02 NG/ML Normal < 0.10 8 CBC With Differential 04/22/2021 [place] [place] [address] [phone] White Blood Count 9.5 10 Normal 4.0-10.0 [...] 36.0-66.0 Lymph % 17.3 % Low 24.0-44.0 Gilliam % 5.9 % Normal 2.0-8.0 Eos % 2.0 % Normal 0.0-3.0 Baso % 0.6 % Normal 0.0-1.0 Immature Granulocyte % 0.4 % Normal 0-3.0 Nucleated Red Blood Cell % 0.0 % Normal 0-0 Neutrophils # 7.0 10 Normal 1.5-8.5 Lymph # 1.7 10 Normal 1.5-5.0 Gilliam # 0.6 10 Normal 0.0-0.8 Eos # 0.2 10 Normal 0.0-0.5 Baso # 0.1 10 Normal 0.0-0.2 Respiratory Panel 04/22/2021 [facility] [address] [place] [address] [id number] [phone] Respiratory Panel This respiratory <SEE NOTE> 9 Blood Culture 04/22/2021 [facility] [address] [place] [address] [id number] [phone] Blood Culture No growth after <SEE NOTE> 10 Laboratory test finding 04/12/[address] [address] [phone] Bedside Glucose 262 mg/dL High 83-110 Laboratory test finding 04/12/[address] [address] [phone] Bedside Glucose 283 mg/dL High 83-110 Laboratory test finding 03/17/[address] [address] [phone] Lactic Acid Sepsis Protocol 2.0 mmol/L Normal 0.4- 2.0 11 Type & Screen -Incl Blood Type,Raghu,AB SC 03/17/[address] [address] [phone] Blood Type A NEGATIVE Normal AB Screen (Indirect Kevin)Vis NEGATIVE Normal Laboratory test finding 03/17/[address] [address] [phone] Lipase 140 U/L Normal 73-393 Basic Metabolic Profile 03/17/[address] [address] [phone] Glucose, Fasting 271 mg/dL High 70-100 Blood [...] 9.6 mg/dL Normal 8.8-10.2 Liver Profile 03/17/2021 [facility] [address] [place] [id number] [phone] Ast/Sgot 36 U/L Normal 7-37 Alt/SGPT 42 U/L Normal 12-78 Alkaline Phosphatase 87 U/L Normal 45-117 Bilirubin,Total 0.3 mg/dL Normal 0.2-1.0 Bilirubin,Direct 0.1 mg/dL Normal 0.0-0.2 Total Protein 7.5 GM/DL Normal 6.4-8.2 Albumin 3.2 GM/DL Normal 3.2-5.2 Albumin/Globulin Ratio 0.7 Normal Cardiac Marker Panel 03/17/2021 [facility] enter [address] [place] [address] [phone] CPK Creatine Phosphokinase 78 U/L Normal 39-30 8 CK-MB Value Mass < 1.0 NG/ML Normal <3.6 MB/CK Relative Index 1.28 Normal < Or =4 13 Troponin I < 0.02 NG/ML Normal < 0.10 14 CBC With Differential 03/17/2021 [address] [place] [address] [phone] White Blood Count 9.6 10 Normal 4.0-10.0 [...] 36.0-66.0 Lymph % 23.9 % Low 24.0-44.0 Gilliam % 5.9 % Normal 2.0-8.0 Eos % 2.6 % Normal 0.0-3.0 Baso % 0.5 % Normal 0.0-1.0 Immature Granulocyte % 0.4 % Normal 0-3.0 Nucleated Red Blood Cell % 0.0 % Normal 0-0 Neutrophils # 6.4 10 Normal 1.5-8.5 Lymph # 2.3 10 Normal 1.5-5.0 Gilliam # 0.6 10 Normal 0.0-0.8 Eos # 0.3 10 Normal 0.0-0.5 Baso # 0.1 10 Normal 0.0-0.2 Complete Blood Count 02/23/2021 [facility] Gamb Cutter: [place] [address] [phone] WBC 8.7 x10*3/UL 4.1 - 10.9 RBC [...] 2.0 - 7.8 Basic Metabolic Panel 02/23/2021 [facility] Gamb Cutter: [place] [address] [phone] Glucose 326 mg/dL High 74 - 99 [...] Low >60 16 Laboratory test finding 02/23/2021 [facility] Gamb Cutter: Dr Kalpesh Pollack [place], [place] [id number] [phone] Thyroid Stimulating Hormone 1.17 uIU/mL 0.3 6 - 3.74 Ua Dipstick Only 02/23/2021 [facility] Gamb Cutter: Dr Kalpesh Pollack [place], [place] [id number] [phone] Urine Color YELLOW Yellow Urine Appearance CLEAR Clear Urine PH 6.0 units 5.0 - 9.0 Urine Specific [place] 1.020 1.005 - 1.030 Urine Leukocytes NEGATIVE Negative Urine Blood NEGATIVE Negative Urine Protein 3+ Abnormal Negative -Trace Urine Glucose 500 mg/dL mg/dL Abnormal Negative Urine Nitrite NEGATIVE Negative Urine Ketone NEGATIVE mg/dL Negative Urine Bilirubin NEGATIVE Negative Urine Urobilinogen 0.2 mg/dL 0.2 - 1.0 Lyme Disease SCRN With Confirm 02/23/2021 [address] [place] [address] [phone] Lyme Disease IgG/IgM Antibodie <0.91 ISR Normal 0 .00-0.90 17 Lyme Disease IgM Ab Quantitati <0.80 index Normal 0.00-0.79 18 Complete Blood Count 01/05/2021 [facility] Gamb Cutter: Dr Kalpesh Pollack [place], [place] [id number] [phone] WBC 9.0 x10*3/UL 4.1 - 10.9 RBC [...] 2.0 - 7.8 Comprehensive Chem Profile 01/05/2021 [facility] Gamb Cutter: [place] [address] [phone] Glucose 395 mg/dL High 74 - 99 [...] mL/min >60 21 Laboratory test finding 01/05/2021 [facility] Gamb Cutter: [place] [address] [phone] Thyroid Stimulating Hormone 1.67 uIU/mL 0.3 6 - 3.74 A1c 01/05/2021 [facility] Cutter: [place] [address] [phone] Hba1c 11.6 % High <5.7 22 Est [...] LITTLE GFR LEFT ESRD GFR <15 ON GATE SHEAR OPERATOR 5 Y/N query for Sepsis Lactate Rule: Y 6 Units are mL/min/1.73 m2 Chronic Kidney Disease Staging per NKF: Stage I & II GFR >=60 Normal to Mildly Decreased Stage III GFR 30-59 Moderately Decreased Stage IV GFR 15-29 Severely Decreased Stage V GFR <15 Very Little GFR Left ESRD GFR <15 on GATE SHEAR OPERATOR 7 DIAGNOSIS CRITERIA MMB ng/ml Relative Index (RI) NON-AMI < or = 5 N/A GONZALEZ ZONE > 5 < or = 4 AMI > 5 > 4 8 Troponin I Reference Interva l for [employer] LOCI: 99th Percentile= 0.00-0.045 ng/ml Risk Stratification: [...] Little GFR Left ESRD GFR <15 on GATE SHEAR OPERATOR 13 DIAGNOSIS CRITERIA MMB ng/ml Relative Index (RI) NON-AMI < or = 5 N/A GONZALEZ ZONE > 5 < or = 4 AMI > 5 > 4 14 Troponin I Reference Interva l for [employer] LOCI: 99th Percentile= 0.00-0.045 ng/ml Risk Stratification: [...] LITTLE GFR LEFT ESRD GFR <15 ON GATE SHEAR OPERATOR 17 Negative <0.91 Equivocal 0.91 - 1.09 Positive >1.09 18 Negative <0.80 Equivocal 0.80 - 1.19 Positive >1.19 . IgM levels may peak at 3-6 weeks post infection, then gradually decline. Performed at: RN - [facility] [address] [id number] Gamb Cutter: Beverly Smith MD, Phone: [phone] NOTE: RESULT VERIFIED. 100-125 mg/dL PRE-DIABETES/FASTING >126 mg/dL DIABETES/FASTING 20 NOTE: RESULT VERIFIED. 21 CHRONIC KIDNEY DISEASE STAGI NG PER NKF STAGE I & II GFR >= 60 NORMAL TO MILDLY DECREASED STAGE III GFR 30-59 MODERATELY DECREASED STAGE IV GFR 15-29 SEVERELY DECREASED STAGE V GFR <15 VERY LITTLE GFR LEFT ESRD GFR <15 ON GATE SHEAR OPERATOR 22 NOTE: RESULT VERIFIED. Lab Result Notes: Pre-Diabetes 5.7 - 6.4 % Diabetes = or > 6.5% Procedures Date Code Description Status 06/09/2021 55293 Office/Outpatient Established Mo d MDM 30-39 Min Completed 05/11/2021 84430 Chronic Care MGMT 20 Mins Clinical Staff Time Per Calendar Month Completed 04/06/2021 69227 Complex Chronic Care MGMT Servic e Ea Addl 30 Min Completed 04/06/2021 39761 Complex Chronic Care Management SVC 1St 60 Min Completed 03/26/2021 90864 Jane [facility] SRV W/I 7 Days Of DC, C omm W/I 2 Dys Med Rec Completed 03/03/2021 61519 Complex Chronic Care MGMT Servic e Ea Addl 30 Min Completed 03/03/2021 16523 Complex Chronic Care Management SVC 1St 60 Min Completed 02/23/2021 59173 Office/Outpatient Established Mo d MDM 30-39 Min Completed 01/12/2021 60369 Chronic Care MGMT 20 Mins Clinical Staff Time Per Calendar Month Completed 01/12/2021 38484 Chronic Care Management Services Ea Addl 20 Min Completed 01/08/2021 70882 Complex Chronic Care MGMT Servic e Ea Addl 30 Min Completed 01/08/2021 04090 Complex Chronic Care Management SVC 1St 60 Min Completed 01/05/2021 94387 Office/Outpatient Established Mo d MDM 30-39 Min Completed 06/10/2020 [id number] Mammogram Completed 12/23/2019 [id number] Colonoscopy Completed 02/10/2016 [id number] Diabetic Retinal Eye Exam [facility] 10/29/2015 [id number] Colonoscopy Completed 08/03/2013 [id number] Diabetic Retinal Eye Exam [facility] 05/11/2011 [id number] Diabetic Retinal Eye Exam [facility] 09/05/2008 [id number] Colonoscopy Completed Medical Devices Description No Information Available Encounters Type Date Location Provider Dx Diagnosis Office Visit 06/09/2021 8:40a [facility] Kalpesh Pollack MD I13.0 Hyp [...] hypercholesterolemia, u nspecified Office Visit 03/26/2021 11:20a [facility], PRODUCTION FOREMAN K57.33 Dvtrcli of lg int w/o perforation [...] 39.0-3 9.9, adult Office Visit 02/23/2021 1:00p [facility] Flip Mcconnell JR, PA R53.83 [...] nonvenom arthropods, init Office Visit 01/05/2021 10:20a [facility] 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 I13.0 Hyp [...] perforation or abscess with bleeding Vania Friedman [facility] 03/26/2021 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 Vania Friedman [facility] 03/26/2021 E11.65 Type 2 diabetes mellitus with hy perglycemia Vania Friedman [facility] 03/26/2021 I13.0 Hypertensive heart a nd chronic kidney disease with heart failure and stage 1 through stage 4 chronic kidney disease, or unspecified chronic kidney disease Vania Friedman [facility] 03/26/2021 I50.32 Chronic diastolic (congestive) h eart failure Vania Friedman [facility] 03/26/2021 N18.31 Chronic kidney disease, stage 3a Vania Friedman [facility] 03/26/2021 G47.33 Obstructive sleep apnea (adult) (pediatric) Vania Friedman [facility] 03/26/2021 H92.09 Otalgia, unspecified ear Vania Friedman [facility] 03/26/2021 R42 Dizziness and giddiness Vania Granados, [facility] 03/26/2021 E66.01 Morbid (severe) obesity due to e xcess calories Vania Friedman [facility] 03/26/2021 Z68.39 Body mass index [BMI] 39.0-39.9, adult Vania Friedman [facility] 03/03/2021 K57.33 Diverticulitis of la rge intestine [...] hy perglycemia Kalpesh Pollack MD 01/05/2021 Z79.4 retirement (current) use of insul in Kalpesh Pollack [...] 2:30 pm - Kalpesh Pollack MD at [facility] 01/05/2021 - Kalpesh Pollack MD* E11.42 Type 2 diabetes mellitus with diabetic polyneuropathy * E11.65 Type 2 diabetes mellitus with hyperglycemia* Comments:* ABC's meet goal.Diabetic foot and eye exams up to date. TLC discussed. Glycemic index discussed. * Z79.4 retirement (current) use of insulin * I13.0 Hypertensive [...] VERTIG Lavelle. PT HAS BEEN REFERRED TO [facility] Closed 05/04/2021 [facility] [address] [address] [phone] Elizabeth Peterson,JOSE RETAIL STORE MANAGER CONSULT FOR LESIONS LT HAND Closed 01/12/2021 [facility] Nurse Practitioners [place], [place] [phone]
--- OUTSIDE RECORDS SUMMARY | 2021-09-20 14:42 | CCD | Continuity of Care Document ---
Author Author Alcon VAZQUEZ ANP Organization Unknown Address [address] [place] [address] Phone [phone] Care Team Providers Care Chemical Engineer Name Role Phone AUTM Unavailable Vania Luna AUTM [phone] Problems Active Problems Provider Date Nontoxic single thyroid nodule Manuel Dacosta MD Onset: Pseudomonas aeruginosa infection of nail Palmer Joy NEUMANN, PA -C Onset: 02/10/2017 Hypothyroidism Mor Greenberg MD Onset: 05/02/2017 Gastroesophageal reflux disease Mor Greenberg MD Onset: 0 05/02/2017 Essential hypertension Chente Rosen MD Onset: 05/03/2021 Chronic rhinitis Chente Rosen MD Onset: 05/04/2021 Dizziness and giddiness Chente Rosen MD Onset: Bilateral tinnitus Chente Rosen MD Onset: 05/04/2021 Hearing loss Chente Rosen MD Onset: 05/04/2021 Social History Type Date Description Comments Sex Unknown ETOH Use Denies alcohol use Recreational Drug Use Denies Drug Use Tobacco Use Start: Unknown End: Patient is a former smoker Smoking Status Reviewed: 03/01/21 Patient is a former smoker Allergies, Adverse Reactions, Alerts Active Allergies Reaction Severity Comments Date Sulfa 08/01/2016 Penicillin 08/01/2016 Medications Active Medications SIG Qnty Indications Ordering Provide r Date Flonase Allergy Relief 50mcg/Act Suspension 2 sprays each nostril every day 15.800ml J31.0 Chente lanier MD 05/04/2021 BIPAP Device 14/10cm ANA Leblanc 01/28/2021 Humalog 100Unit/ML Solution as directed according to sliding scale Unknown Amlodipine Besylate/Benazepril HCL 10-40mg Capsules 1 tab by mouth every day Unknown Bisoprolol Fumarate 5mg Tablets 1 tab by mouth every day Unknown Tamsulosin HCL 0.4mg Capsules 1 cap by mouth every day Unknown Pantoprazole Sodium 40mg Tablets D R 1 tab by mouth every day 60tabs Unknown Gabapentin 300mg Capsules 1 cap by mouth twice a day 60caps Unknown Spironolactone 25mg Tablets 1 tab by mouth every day Unknown Irbesartan 150mg Tablets 1 tab by mouth every day Unknown Finasteride 5mg Tablets 1 tab by mouth every day Unknown Toujeo Max Solostar 300Unit/ML Solution Pen-Inject Titrate Up To 128 Units Under The Skin Daily Unknown Sucralfate 1gm Tablets 1 tab by mouth twice a day before meals 120tabs Unknown Levothyroxine Sodium 125mcg Tablet s 1 by mouth every day Unknown Ventolin HFA 108(90Base) mcg/Act A erosol 2 puffs four times a day as needed Unknown Immunizations Description No Information Available Vital Signs Date Vital Result Comment 06/22/2021 1:58pm BP Systolic 118 mmHg BP Diastolic 78 mmHg Heart Rate 85 /min O2 % BldC Oximetry 95 % Height 71.5 inches 5'11.50" Weight 289.00 lb BMI (Body Mass Index) 39.7 kg/m2 [place] Body Weight 172 lb Weight 131.090 kg BSA (Body Surface Area) 2.48 m2 05/04/2021 2:32pm BP Systolic 140 mmHg BP Diastolic 70 mmHg Heart Rate 62 /min O2 % BldC Oximetry 97 % Height 71.5 inches 5'11.50" Weight 289.00 lb BMI (Body Mass Index) 39.7 kg/m2 [place] Body Weight 172 lb Weight 131.090 kg BSA (Body Surface Area) 2.48 m2 Results Test Acquired Date Facility Test Result H/L Range Note FVL/[place] 06/22/2021 Medgraphics PDFReport SEE IMAGE FVC-Pred 4.61 L FVC-Pre 3.11 L FVC-%Pred-Pre 67 L FVC-LLN 3.63 L Fev1-Pred 3.37 L Fev1-Pre 2.41 L Fev1-%Pred-Pre 71 L Fev1-LLN 2.55 L Fev6-Pred 4.35 L Fev6-Pre 3.11 L Fev6-%Pred-Pre 71 L Fev6-LLN 3.40 L Qjx3hwm-Dibm 73 % Mcl0pba-Yxp 78 % Bjn5rtx-%Pred-Pre 105 % Qbd5abl-MEK 63 % Tol2dmw-Dkpi 94 % Vzp2cym-Ect 100 % Zdg7ila-%Pred-Pre 105 % FEFMax-Pred 8.50 L/E/sec FEFMax-Pre 6.47 L/E/sec FEFMax-%Pred-Pre 76 L/E/sec FEFMax-LLN 6.07 L/E/sec Dvn9179-Owqf 2.52 L/E/sec Imu2418-Fug 2.10 L/E/sec Tvg3286-%Pred-Pre 83 L/E/sec Agw8340-RYT 0.85 L/E/sec ExpTime-Pre 5.41 sec Ovc7pve8-Tses 77 % Hil6nev8-Rgs 78 % Rdv8bkn8-%Pred-Pre 100 % Mno6ppk3-AOS 68 % Procedures Date Code Description Status 05/04/2021 24249 Office/Outpatient New Moderate M DM 45-59 Minutes Completed 04/06/2021 18769 Measure Blood Oxygen Level Dax katie Overnight Monitor Completed 03/01/2021 68357 Office/Outpatient Established Lo w MDM 20-29 Min Completed Medical Devices Description No Information Available Encounters Type Date Location Provider Dx Diagnosis Office Visit 05/04/2021 2:30p [facility] ENT Practice Rolf Hernandez H91.93 Unspecified hearing loss, bilateral H93.13 Tinnitus, bilateral R42 Dizziness and giddiness J31.0 Chronic rhinitis Office Visit 03/01/2021 3:00p [facility] Pulmonary/Thoracic ANA Altamirano G47.33 Obstructive sleep apnea (adult) (pediatr ic) Assessments Date Code Description Provider 06/22/2021 R06.02 Shortness of breath ANA Dacosta 06/22/2021 R05 Cough ANA Dacosta 06/22/2021 Z87.891 Personal history of nicotine dep endence ANA Dacosta 06/22/2021 G47.33 Obstructive sleep apnea (adult) (pediatric) ANA Dacosta 05/04/2021 H91.93 Unspecified hearing loss, bilate ral Chente Rosen MD 05/04/2021 H93.13 Tinnitus, bilateral Chente Rosen MD 05/04/2021 R42 Dizziness and giddiness Chente blake MD 05/04/2021 J31.0 Chronic rhinitis Rolf Hernandez 04/06/2021 G47.33 Obstructive sleep apnea (adult) (pediatric) Nocturnal Oximetry 03/01/2021 G47.33 Obstructive sleep apnea (adult) (pediatric) ANA Dacosta Plan of Treatment Future Appointment(s):* 07/20/2021 11:00 am - Pulmonary Lab at [facility] Pulmonary/Thoracic * 03/01/2022 12:30 pm - ANA Dacosta at [facility] Pulmonary/Thoracic 06/22/2021 - ANA Dacosta* R06.02 Shortness of breath * R05 Cough * Z87.891 Personal history of nicotine dependence * G47.33 Obstructive sleep apnea (adult) (pediatric) * * New Labs:* PFT/HGB Off/No Meds, Scheduled: 07/20/21 * Follow up:* 1. Return to see me/doctor in follow up with pulmonary function testing. Functional Status Description No Information Available Mental Status Description No Information Available Referrals Refer to Dr Reason for Referral Status Appt Date Enma Vazquez, Cuate.NZehraP. SOB Created [facility] Medical Practice Pulmonary [address] [place], [place] [address] [phone] [facility] Audiology Please perfom audiogram Closed Marilou Navarrete M.S.[facility] [address] [place] [address] [phone] Chente Rosen M.D. B[employer]ODU[employer] CHECKER EAR PAIN [place] REF A [facility] INS [facility] CARE Closed 05/04/2021 8[address] [facility] [address] [place] [address] [phone]
--- OUTSIDE RECORDS SUMMARY | 2021-09-20 14:42 | CCD | Continuity of Care Document ---
Author Author Alcon VAZQUEZ ANP Organization Unknown Address [address] [place] [address] Phone [phone] Care Team Providers Care Digital Account Executive Name Role Phone AUTM Unavailable Vania Luna AUTM [phone] Problems Active Problems Provider Date Nontoxic single thyroid nodule Manuel Dacosta MD Onset: Pseudomonas aeruginosa infection of nail Palmer Joy NEUMANN, PA -C Onset: 02/10/2017 Hypothyroidism Mor Greenberg MD Onset: 05/02/2017 Gastroesophageal reflux disease Mor Greenberg MD Onset: 0 05/02/2017 Essential hypertension Chente Rosen MD Onset: 05/03/2021 Chronic rhinitis Chente Rosen MD Onset: 05/04/2021 Dizziness and giddiness Chente Rosne MD Onset: Bilateral tinnitus Chente Rosen MD [...] lb BMI (Body Mass Index) 39.7 kg/m2 [place] Body Weight 172 lb Weight 131.090 kg BSA (Body Surface Area) 2.48 m2 05/04/2021 2:32pm BP Systolic 140 mmHg BP Diastolic 70 mmHg Heart Rate 62 /min O2 % BldC Oximetry 97 % Height 71.5 inches 5'11.50" Weight 289.00 lb BMI (Body Mass Index) 39.7 kg/m2 [place] Body Weight 172 lb Weight 131.090 kg BSA (Body Surface Area) 2.48 m2 Results Test Acquired Date Facility Test Result H/L Range Note FVL/[place] 06/22/2021 Medgraphics PDFReport SEE IMAGE FVC-Pred 4.61 L FVC-Pre 3.11 L FVC-%Pred-Pre 67 L FVC-LLN 3.63 L Fev1-Pred 3.37 L Fev1-Pre 2.41 L Fev1-%Pred-Pre 71 L Fev1-LLN 2.55 L Fev6-Pred 4.35 L Fev6-Pre 3.11 L Fev6-%Pred-Pre 71 L Fev6-LLN 3.40 L Iip2dxf-Lifd 73 % Abg9jbt-Yyf 78 % Qhw3vxa-%Pred-Pre 105 % Exu3kio-KLL 63 % Qod2xhl-Vkuh 94 % Dgt3bbz-Prg 100 % Aiu3zcj-%Pred-Pre 105 % FEFMax-Pred 8.50 L/E/sec FEFMax-Pre 6.47 L/E/sec FEFMax-%Pred-Pre 76 L/E/sec FEFMax-LLN 6.07 L/E/sec Qiu0064-Dalp 2.52 L/E/sec Bak4740-Vxg 2.10 L/E/sec Yvo3661-%Pred-Pre 83 L/E/sec Mqy2366-SVT 0.85 L/E/sec ExpTime-Pre 5.41 sec Syf2qrl9-Jzgn 77 % Phk7ims1-Yxi 78 % Ngi0wdb2-%Pred-Pre 100 % Ahn3fnu7-UJH 68 % Procedures Date Code Description Status 05/04/2021 74032 Office/Outpatient New Moderate M DM 45-59 Minutes Completed 04/06/2021 64961 Measure Blood Oxygen Level Dax katie Overnight Monitor Completed 03/01/2021 68632 Office/Outpatient Established Lo w MDM 20-29 Min Completed Medical Devices Description No Information Available Encounters Type Date Location Provider Dx Diagnosis Office Visit 05/04/2021 2:30p [facility] ENT Practice Rolf Hernandez H91.93 Unspecified hearing loss, bilateral H93.13 Tinnitus, bilateral R42 Dizziness and giddiness J31.0 Chronic rhinitis Office Visit 03/01/2021 3:00p [facility] Pulmonary/Thoracic ANA Altamirano G47.33 Obstructive sleep [...] 07/20/2021 11:00 am - Pulmonary Lab at [facility] Pulmonary/Thoracic * 03/01/2022 12:30 pm - ANA Dacosta at [facility] Pulmonary/Thoracic 06/22/2021 - ANA Dacosta* R06.02 [...] Appt Date Enma Vazquez, Cuate.NZehraP. SOB Created [facility] Medical Practice Pulmonary [address] [place], [place] [address] [phone] [facility] Audiology Please perfom audiogram Closed Marilou Navarrete M.S.[facility] [address] [place] [address] [phone] Chente Rosen M.D. BIOMASS FACILITATOR EAR PAIN VERTIGO REF A [facility] INS [facility] C[facility] Closed 05/04/2021 826 [facility] [address] [place] [address] [phone]
--- OUTSIDE RECORDS SUMMARY | 2021-09-20 14:42 | CCD | Continuity of Care Document ---
Author Author Alcon VAZQUEZ ANP Organization Unknown Address [address] [place] [address] Phone [phone] Care Team Providers Care Theater Education Teacher Name Role Phone AUTM Unavailable Vania Luna AUTM [phone] Problems Active Problems Provider Date Nontoxic single [...] lb BMI (Body Mass Index) 39.7 kg/m2 [place] Body Weight 172 lb Weight 131.090 kg BSA (Body Surface Area) 2.48 m2 05/04/2021 2:32pm BP Systolic 140 mmHg BP Diastolic 70 mmHg Heart Rate 62 /min O2 % BldC Oximetry 97 % Height 71.5 inches 5'11.50" Weight 289.00 lb BMI (Body Mass Index) 39.7 kg/m2 [place] Body Weight 172 lb Weight 131.090 kg BSA (Body Surface Area) 2.48 m2 Results Test Acquired Date Facility Test Result H/L Range Note FVL/[place] 06/22/2021 Medgraphics PDFReport SEE IMAGE FVC-Pred 4.61 L FVC-Pre 3.11 L FVC-%Pred-Pre 67 L FVC-LLN 3.63 L Fev1-Pred 3.37 L Fev1-Pre 2.41 L Fev1-%Pred-Pre 71 L Fev1-LLN 2.55 L Fev6-Pred 4.35 L Fev6-Pre 3.11 L Fev6-%Pred-Pre 71 L Fev6-LLN 3.40 L Hzj5mis-Pqff 73 % Loz1dkz-Hvx 78 % Mas3wtb-%Pred-Pre 105 % Bmb2csc-KHH 63 % Flm1qls-Cyga 94 % Otu5yhk-Wyk 100 % Zbv9dbb-%Pred-Pre 105 % FEFMax-Pred 8.50 L/E/sec FEFMax-Pre 6.47 L/E/sec FEFMax-%Pred-Pre 76 L/E/sec FEFMax-LLN 6.07 L/E/sec Brb8489-Vpfq 2.52 L/E/sec Irb6632-Nku 2.10 L/E/sec Czp7469-%Pred-Pre 83 L/E/sec Xtr6758-UDB 0.85 L/E/sec ExpTime-Pre 5.41 sec Syu6oyd4-Qkhw 77 % Phr9pkm5-Vbj 78 % Xjn1jrc2-%Pred-Pre 100 % Hir9kry7-XAK 68 % Procedures Date Code Description Status 06/22/2021 52657 Office/Outpatient Established Mo d MDM 30-39 Min Completed 06/22/2021 66129 Spirometry Completed 05/04/2021 98444 Office/Outpatient New Moderate M DM 45-59 Minutes Completed 04/06/2021 32716 Measure Blood Oxygen Level Dax katie Overnight Monitor Completed 03/01/2021 98687 Office/Outpatient Established Lo w MDM 20-29 Min Completed Medical Devices Description No Information Available Encounters Type Date Location Provider Dx Diagnosis Office Visit 06/22/2021 2:00p [facility] Enma To wne, ANP R06.02 Shortness of breath R05 Cough Z87.891 Personal history of nicotine dependence G47.33 Obstructive sleep apnea (humberto lt) (pediatric) Office Visit 05/04/2021 2:30p [facility] Rolf Hernandez H91.93 Unspecified hearing loss, bilateral H93.13 Tinnitus, bilateral R42 Dizziness and giddiness J31.0 Chronic rhinitis Office Visit 03/01/2021 3:00p [facility] Enma To ANA moreno G47.33 Obstructive sleep apnea (adult) (pediatr ic) [...] 07/20/2021 11:00 am - [facility] at [facility] * 03/01/2022 12:30 pm - [facility]NA Dacosta at [facility] 06/22/2021 - ANA Dacosta* R06.02 Shortness [...] Refer to Reason for Referral Status Appt Enma Hernandez A.NMing SOB Created [facility] [address] [place], [place] [address] [phone] [place], Audiology Please perfom audiogram Closed Marilou Navarrete M.S.[facility] [address] [place] [address] [phone] Chente Rosen M.D. BUCKLE [employer] MAKER EAR PAIN VERTIGO REF A [facility]PINE INS [facility] Closed 05/04/[address] [address] [phone]
--- OUTSIDE RECORDS SUMMARY | 2021-09-20 14:42 | CCD | Continuity of Care Document ---
Author Author Alcon VAZQUEZ ANP Organization Unknown Address [address] [place] [address] Phone [phone] Care Team Providers Care Revenue Investigator Name Role Phone AUTM Unavailable Vania Luna AUTM [phone] Problems Active Problems Provider Date Nontoxic single [...] lb BMI (Body Mass Index) 39.7 kg/m2 [place] Body Weight 172 lb Weight 131.090 kg BSA (Body Surface Area) 2.48 m2 05/04/2021 2:32pm BP Systolic 140 mmHg BP Diastolic 70 mmHg Heart Rate 62 /min O2 % BldC Oximetry 97 % Height 71.5 inches 5'11.50" Weight 289.00 lb BMI (Body Mass Index) 39.7 kg/m2 [place] Body Weight 172 lb Weight 131.090 kg BSA (Body Surface Area) 2.48 m2 Results Test Acquired Date Facility Test Result H/L Range Note FVL/[place] 06/22/2021 Medgraphics PDFReport SEE IMAGE FVC-Pred 4.61 L FVC-Pre 3.11 L FVC-%Pred-Pre 67 L FVC-LLN 3.63 L Fev1-Pred 3.37 L Fev1-Pre 2.41 L Fev1-%Pred-Pre 71 L Fev1-LLN 2.55 L Fev6-Pred 4.35 L Fev6-Pre 3.11 L Fev6-%Pred-Pre 71 L Fev6-LLN 3.40 L Rae4tkr-Jlbo 73 % Nbi4xvu-Qpo 78 % Gld0vjp-%Pred-Pre 105 % Hyz8edr-QBV 63 % Cae0hkd-Eooz 94 % Grz2ooi-Okk 100 % Qjh5xeg-%Pred-Pre 105 % FEFMax-Pred 8.50 L/E/sec FEFMax-Pre 6.47 L/E/sec FEFMax-%Pred-Pre 76 L/E/sec FEFMax-LLN 6.07 L/E/sec Xbq9478-Dalj 2.52 L/E/sec Fvl4127-Suw 2.10 L/E/sec Yjy7546-%Pred-Pre 83 L/E/sec Esr4240-JSN 0.85 L/E/sec ExpTime-Pre 5.41 sec Kkq9ker4-Xunl 77 % Qju3yhr9-Qou 78 % Grx5jqv4-%Pred-Pre 100 % Xvc1wro5-YZZ 68 % Procedures Date Code Description Status 05/04/2021 38991 Office/Outpatient New Moderate M DM 45-59 Minutes Completed 04/06/2021 20609 Measure Blood Oxygen Level Dax katie Overnight Monitor Completed 03/01/2021 37906 Office/Outpatient Established Lo w MDM 20-29 Min Completed Medical Devices Description No Information Available Encounters Type Date Location Provider Dx Diagnosis Office Visit 05/04/2021 2:30p [facility] ENT Practice Rolf Hernandez H91.93 Unspecified hearing loss, bilateral H93.13 Tinnitus, bilateral R42 Dizziness and giddiness J31.0 Chronic rhinitis Office Visit 03/01/2021 3:00p [facility] Pulmonary/Thoracic ANA Altamirano G47.33 Obstructive sleep apnea [...] 07/20/2021 11:00 am - Pulmonary Lab at [facility] Pulmonary/Thoracic * 03/01/2022 12:30 pm - ANA Dacosta at [facility] Pulmonary/Thoracic 06/22/2021 - ANA Dacosta* R06.02 Shortness [...] Appt Date Enma Vazquez, Cuate.NZehraP. SOB Created [facility] Pulmonary [address] [place], [place] [address] [phone] [facility] Audiology Please perfom audiogram Closed Marilou Navarrete M.S.[facility] [address] [place] [address] [phone] Chente Rosen M.D. RV TECHNICIAN EAR PAIN VERTIGO REF A [facility] Closed 05/04/2021 826 [facility] [address] [place] [address] [phone]
--- OUTSIDE RECORDS SUMMARY | 2021-09-20 14:42 | CCD | Continuity of Care Document ---
Author Author Alcon Pollack MD Organization Unknown Address [address] [address] Phone [phone] Care Team Providers Care Inventory Control Planner Name Role Phone Kalpesh Pollack JR, MD AUTM Unavailable Maxine Torrez OD AUTM Unavailable Artur Lee MD AUTM [phone] [facility] AUTM [phone] Problems Active Problems Provider Date Impotence of [...] Ordering Provide r Date Fluticasone Propionate Nasal [place] 24- H our 50mcg/Act Suspension 1-2 puffs [...] Kalpesh Pollack MD 10/17/2019 Fluticasone Propionate Nasal [place] 50mcg/Act Suspension 2 sprays in each nostril [...] Of Flu Vaccine Inj ection Jennifer Rhodes, [facility] 09/06/2019 Administration Of Flu Vaccine Inj ection Merlin Herrera, [facility] 10/12/2017 Administration Of Flu Vaccine Inj ection Kalpesh Pollack MD 09/07/2016 Administration Of Flu Vaccine Inj ection Kalpesh Pollack MD 09/04/2014 Immunizations CPT Code Status Date Vaccine Lot # [id number] Given 09/15/2020 Influenza Vaccin e Quadrivalent Preser/Antibiotic Free Im Use [id number] 01511 Given 09/06/2019 Influenza Vaccin e Quadrivalent Preser/Antibiotic Free Im Use [id number] 89439 Given 10/12/2017 Influenza Vaccin e Quadrivalent Preser/Antibiotic Free Im Use 213651 03670 Given 12/16/2016 Pneumovax 23 70050 Given 09/23/2016 Adacel- Tetanus Diphtheria P ertussis (Age64 & Under) [id number] Q2037 Given 09/07/2016 Fluvirin Virus Vaccine 08461 01 21658 Given 11/11/2014 Prevnar 13 [id number] Q2037 Given 09/04/2014 Fluvirin Virus Vaccine 54995 01 Q2037 Given 09/18/2013 Fluvirin Virus Vaccine 48915 01 62408 Given 10/01/2008 Influenza Virus Vaccine 79408 Given 10/08/2003 Tetanus Toxoid Vital Signs Date [...] Test Result H/L Range Note A1c 06/09/2021 [facility] Location Director: [place] [address] [phone] Hba1c 10.6 % High <5.7 1 Est Avg Glucose 258 mg/dL High 60 - 110 Comprehensive Chem Profile 06/09/2021 [facility] Location Director: [place] [address] [phone] Glucose 296 mg/dL High 74 - 99 [...] 60 mL/min >60 4 Lipid Profile 06/09/2021 [facility] Location Director: [place] [address] [phone] Cholesterol 223 mg/dL High 131 - 200 Triglycerides 312 mg/dL High 30 - 150 HDL Cholesterol 38 mg/dL 35 - 60 LDL (Calculated) 123 CALC 50 - 159 Complete Blood Count 06/09/2021 [facility] Location Director: [place] [address] [phone] WBC 7.1 x10*3/UL 4.1 - 10.9 RBC [...] x10*3/UL 2.0 - 7.8 Liver Profile 04/22/2021 [facility] nter [address] [place] [address] [phone] Ast/Sgot 26 U/L Normal 7-37 Alt/SGPT 46 U/L Normal 12-78 Alkaline Phosphatase 91 U/L Normal 45-117 Bilirubin,Total 0.5 mg/dL Normal 0.2-1.0 Bilirubin,Direct 0.2 mg/dL Normal 0.0-0.2 Total Protein 7.7 GM/DL Normal 6.4-8.2 Albumin 3.2 GM/DL Normal 3.2-5.2 Albumin/Globulin Ratio 0.7 Normal Laboratory test finding 04/22/2021 [facility] [address] [place] [address] [phone] Lactic Acid Sepsis Protocol 2.1 mmol/L Critical high 0 .4-2.0 5 Basic Metabolic Profile 04/22/[address] [address] [phone] Glucose, Fasting 234 mg/dL High 70-100 Blood [...] mg/dL Normal 8.8-10.2 Cardiac Marker Panel 04/22/2021 [facility] enter [address] [place], [place] [id number] [phone] CPK Creatine Phosphokinase 78 U/L Normal 39-30 8 CK-MB Value Mass 1.2 NG/ML Normal <3.6 MB/CK Relative Index 1.54 Normal < Or =4 7 Troponin I < 0.02 NG/ML Normal < 0.10 8 CBC With Differential 04/22/2021 [address] [place] [address] [phone] White Blood Count 9.5 10 Normal 4.0-10.0 [...] 36.0-66.0 Lymph % 17.3 % Low 24.0-44.0 Randall % 5.9 % Normal 2.0-8.0 Eos % 2.0 % Normal 0.0-3.0 Baso % 0.6 % Normal 0.0-1.0 Immature Granulocyte % 0.4 % Normal 0-3.0 Nucleated Red Blood Cell % 0.0 % Normal 0-0 Neutrophils # 7.0 10 Normal 1.5-8.5 Lymph # 1.7 10 Normal 1.5-5.0 Randall # 0.6 10 Normal 0.0-0.8 Eos # 0.2 10 Normal 0.0-0.5 Baso # 0.1 10 Normal 0.0-0.2 Respiratory Panel 04/22/2021 [facility] nter [address] [place] [id number] [phone] Respiratory Panel This respiratory <SEE NOTE> 9 Blood Culture 04/22/2021 [facility] nter [address] [place] [id number] [phone] Blood Culture No growth after <SEE NOTE> 10 Laboratory test finding 04/12/[address] [address] [phone] Bedside Glucose 262 mg/dL High 83-110 Laboratory test finding 04/12/[address] [address] [phone] Bedside Glucose 283 mg/dL High 83-110 Laboratory test finding 03/17/[address] [address] [phone] Lactic Acid Sepsis Protocol 2.0 mmol/L Normal 0.4- 2.0 11 Type & Screen -Incl Blood Type,Raghu,AB SC 03/17/[address] [address] [phone] Blood Type A NEGATIVE Normal AB Screen (Indirect Kevin)Vis NEGATIVE Normal Laboratory test finding 03/17/[address] [address] [phone] Lipase 140 U/L Normal 73-393 Basic Metabolic Profile 03/17/[address] [address] [phone] Glucose, Fasting 271 mg/dL High 70-100 Blood [...] 9.6 mg/dL Normal 8.8-10.2 Liver Profile 03/17/2021 [facility] nter [address] [address] [phone] Ast/Sgot 36 U/L Normal 7-37 Alt/SGPT 42 U/L Normal 12-78 Alkaline Phosphatase 87 U/L Normal 45-117 Bilirubin,Total 0.3 mg/dL Normal 0.2-1.0 Bilirubin,Direct 0.1 mg/dL Normal 0.0-0.2 Total Protein 7.5 GM/DL Normal 6.4-8.2 Albumin 3.2 GM/DL Normal 3.2-5.2 Albumin/Globulin Ratio 0.7 Normal Cardiac Marker Panel 03/17/2021 [facility] enter [address] [place] [address] [phone] CPK Creatine Phosphokinase 78 U/L Normal 39-30 8 CK-MB Value Mass < 1.0 NG/ML Normal <3.6 MB/CK Relative Index 1.28 Normal < Or =4 13 Troponin I < 0.02 NG/ML Normal < 0.10 14 CBC With Differential 03/17/2021 [address] [place] [address] [phone] White Blood Count 9.6 10 Normal 4.0-10.0 [...] 36.0-66.0 Lymph % 23.9 % Low 24.0-44.0 Randall % 5.9 % Normal 2.0-8.0 Eos % 2.6 % Normal 0.0-3.0 Baso % 0.5 % Normal 0.0-1.0 Immature Granulocyte % 0.4 % Normal 0-3.0 Nucleated Red Blood Cell % 0.0 % Normal 0-0 Neutrophils # 6.4 10 Normal 1.5-8.5 Lymph # 2.3 10 Normal 1.5-5.0 Randall # 0.6 10 Normal 0.0-0.8 Eos # 0.3 10 Normal 0.0-0.5 Baso # 0.1 10 Normal 0.0-0.2 Complete Blood Count 02/23/2021 [facility] Location Director: [place] [address] [phone] WBC 8.7 x10*3/UL 4.1 - 10.9 RBC [...] 2.0 - 7.8 Basic Metabolic Panel 02/23/2021 [facility] Location Director: [place] [address] [phone] Glucose 326 mg/dL High 74 - 99 [...] Low >60 16 Laboratory test finding 02/23/2021 [facility] Location Director: Dr Kalpesh Pollack [place], [place] [id number] [phone] Thyroid Stimulating Hormone 1.17 uIU/mL 0.3 6 - 3.74 Ua Dipstick Only 02/23/2021 [facility] Location Director: Dr Kalpesh Pollack [place], [place] [id number] [phone] Urine Color YELLOW Yellow Urine Appearance CLEAR Clear Urine PH 6.0 units 5.0 - 9.0 Urine Specific Chrisman 1.020 1.005 - 1.030 Urine Leukocytes NEGATIVE Negative Urine Blood NEGATIVE Negative Urine Protein 3+ Abnormal Negative -Trace Urine Glucose 500 mg/dL mg/dL Abnormal Negative Urine Nitrite NEGATIVE Negative Urine Ketone NEGATIVE mg/dL Negative Urine Bilirubin NEGATIVE Negative Urine Urobilinogen 0.2 mg/dL 0.2 - 1.0 Lyme Disease SCRN With Confirm 02/23/2021 [address] [place] [address] [phone] Lyme Disease IgG/IgM Antibodie <0.91 ISR Normal 0 .00-0.90 17 Lyme Disease IgM Ab Quantitati <0.80 index Normal 0.00-0.79 18 Complete Blood Count 01/05/2021 [facility] Location Director: Dr Kalpesh Pollack [place], [place] [id number] [phone] WBC 9.0 x10*3/UL 4.1 - 10.9 RBC [...] 2.0 - 7.8 Comprehensive Chem Profile 01/05/2021 [facility] Location Director: [place] [address] [phone] Glucose 395 mg/dL High 74 - 99 [...] mL/min >60 21 Laboratory test finding 01/05/2021 [facility] Location Director: [place] [address] [phone] Thyroid Stimulating Hormone 1.67 uIU/mL 0.3 6 - 3.74 A1c 01/05/2021 [facility] Location Director: [place] [address] [phone] Hba1c 11.6 % High <5.7 22 Est [...] LITTLE GFR LEFT ESRD GFR <15 ON TRACK VEHICLE REPAIRER 5 Y/N query for Sepsis Lactate Rule: Y 6 Units are mL/min/1.73 m2 Chronic Kidney Disease Staging per NKF: Stage I & II GFR >=60 Normal to Mildly Decreased Stage III GFR 30-59 Moderately Decreased Stage IV GFR 15-29 Severely Decreased Stage V GFR <15 Very Little GFR Left ESRD GFR <15 on TRACK VEHICLE REPAIRER 7 DIAGNOSIS CRITERIA MMB ng/ml Relative Index (RI) NON-AMI < or = 5 N/A GONZALEZ ZONE > 5 < or = 4 AMI > 5 > 4 8 Troponin I Reference Interva l for [employer] LOCI: 99th Percentile= 0.00-0.045 ng/ml Risk Stratification: [...] Little GFR Left ESRD GFR <15 on TRACK VEHICLE REPAIRER 13 DIAGNOSIS CRITERIA MMB ng/ml Relative Index (RI) NON-AMI < or = 5 N/A GONZALEZ ZONE > 5 < or = 4 AMI > 5 > 4 14 Troponin I Reference Interva l for [employer] LOCI: 99th Percentile= 0.00-0.045 ng/ml Risk Stratification: [...] LITTLE GFR LEFT ESRD GFR <15 ON TRACK VEHICLE REPAIRER 17 Negative <0.91 Equivocal 0.91 - 1.09 Positive >1.09 18 Negative <0.80 Equivocal 0.80 - 1.19 Positive >1.19 . IgM levels may peak at 3-6 weeks post infection, then gradually decline. Performed at: RN - [facility] [address] [id number] Location Director: Beverly Smith MD, Phone: [phone] NOTE: RESULT VERIFIED. 100-125 mg/dL PRE-DIABETES/FASTING >126 mg/dL DIABETES/FASTING 20 NOTE: RESULT VERIFIED. 21 CHRONIC KIDNEY DISEASE STAGI NG PER NKF STAGE I & II GFR >= 60 NORMAL TO MILDLY DECREASED STAGE III GFR 30-59 MODERATELY DECREASED STAGE IV GFR 15-29 SEVERELY DECREASED STAGE V GFR <15 VERY LITTLE GFR LEFT ESRD GFR <15 ON TRACK VEHICLE REPAIRER 22 NOTE: RESULT VERIFIED. Lab Result Notes: Pre-Diabetes 5.7 - 6.4 % Diabetes = or > 6.5% Procedures Date Code Description Status 06/09/2021 78601 Office/Outpatient Established Mo d MDM 30-39 Min Completed 05/11/2021 69321 Chronic Care MGMT 20 Mins Clinical Staff Time Per Calendar Month Completed 04/06/2021 90014 Complex Chronic Care MGMT Servic e Ea Addl 30 Min Completed 04/06/2021 68189 Complex Chronic Care Management SVC 1St 60 Min Completed 03/26/2021 64133 [facility] SRV W/I 7 Days Of DC, C omm W/I 2 Dys Med Rec Completed 03/03/2021 54817 Complex Chronic Care MGMT Servic e Ea Addl 30 Min Completed 03/03/2021 18250 Complex Chronic Care Management SVC 1St 60 Min Completed 02/23/2021 04500 Office/Outpatient Established Mo d MDM 30-39 Min Completed 01/12/2021 17686 Chronic Care MGMT 20 Mins Clinical Staff Time Per Calendar Month Completed 01/12/2021 29350 Chronic Care Management Services Ea Addl 20 Min Completed 01/08/2021 35699 Complex Chronic Care MGMT Servic e Ea Addl 30 Min Completed 01/08/2021 01916 Complex Chronic Care Management SVC 1St 60 Min Completed 01/05/2021 74835 Office/Outpatient Established Mo d MDM 30-39 Min Completed 06/10/2020 [id number] Mammogram Completed 12/23/2019 [id number] Colonoscopy Completed 02/10/2016 [id number] Diabetic Retinal Eye Exam [facility] 10/29/2015 [id number] Colonoscopy Completed 08/03/2013 [id number] Diabetic Retinal Eye Exam [facility] 05/11/2011 [id number] Diabetic Retinal Eye Exam [facility] 09/05/2008 [id number] Colonoscopy Completed Medical Devices Description No Information Available Encounters Type Date Location Provider Dx Diagnosis Office Visit 06/09/2021 8:40a [facility] 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 Flip Mcconnell JR, PA R53.83 [...] nonvenom arthropods, init Office Visit 01/05/2021 10:20a [facility] 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 and stage 1 through stage 4 chronic kidney disease, or unspecified chronic kidney disease Vania Friedman [facility] 03/26/2021 I50.32 Chronic diastolic (congestive) h eart failure Vania Friedman [facility] 03/26/2021 N18.31 Chronic kidney disease, stage 3a Vania Friedman [facility] 03/26/2021 G47.33 Obstructive sleep apnea (adult) (pediatric) Vania Friedman [facility] 03/26/2021 H92.09 Otalgia, unspecified ear Vania Friedman [facility] 03/26/2021 R42 Dizziness and giddiness Vania Granados, [facility] 03/26/2021 E66.01 Morbid (severe) obesity due to e xcess calories Vania Friedman [facility] 03/26/2021 Z68.39 Body mass index [BMI] 39.0-39.9, adult Vania Friedman [facility] 03/03/2021 K57.33 Diverticulitis of la rge [...] hy perglycemia Kalpesh Pollack MD 01/05/2021 Z79.4 detention (current) use of insul in Kalpesh Pollack [...] 2:30 pm - Kalpesh Pollack MD at [facility] 01/05/2021 - Kalpesh Pollack MD* E11.42 Type 2 diabetes mellitus with diabetic polyneuropathy * E11.65 Type 2 diabetes mellitus with hyperglycemia* Comments:* ABC's meet goal.Diabetic foot and eye exams up to date. TLC discussed. Glycemic index discussed. * Z79.4 detention (current) use of insulin * I13.0 Hypertensive [...] VERTIG Lavelle. PT HAS BEEN REFERRED TO [facility] Closed 05/04/2021 [facility] [address] [address] [phone] Elizabeth Peterson,JOSE DOCUMENT PROCESSOR CONSULT FOR LESIONS LT HAND Closed 01/12/2021 [facility] Nurse Practitioners [place], [place] [phone]
--- OUTSIDE RECORDS SUMMARY | 2021-09-20 14:42 | CCD | Continuity of Care Document ---
Author Author Alcon Pollack MD Organization Unknown Address [address] [address] Phone [phone] Care Team Providers Care Trucking Manager Name Role Phone Kalpesh Pollack JR, MD AUTM Unavailable Maxine Torrez OD AUTM Unavailable Artur Lee MD AUTM [phone] [employer] [place] [facility]M [phone] Problems Active Problems Provider Date Impotence of [...] Ordering Provide r Date Fluticasone Propionate Nasal Lutz 24- H our 50mcg/Act Suspension 1-2 puffs [...] Kalpesh Pollack MD 10/17/2019 Fluticasone Propionate Nasal Lutz 50mcg/Act Suspension 2 sprays in each nostril [...] Of Flu Vaccine Inj ection Jennifer Rhodes, [facility] 09/06/2019 Administration Of Flu Vaccine Inj ection Merlin Herrera, [facility] 10/12/2017 Administration Of Flu Vaccine Inj ection Kalpesh Pollack MD 09/07/2016 Administration Of Flu Vaccine Inj ection Kalpesh Pollack MD 09/04/2014 Immunizations CPT Code Status Date Vaccine Lot # [id number] Given 09/15/2020 Influenza Vaccin e Quadrivalent Preser/Antibiotic Free Im Use [id number] 20055 Given 09/06/2019 Influenza Vaccin e Quadrivalent Preser/Antibiotic Free Im Use [id number] 97222 Given 10/12/2017 Influenza Vaccin e Quadrivalent Preser/Antibiotic Free Im Use 288898 56150 Given 12/16/2016 Pneumovax 23 39447 Given 09/23/2016 Adacel- Tetanus Diphtheria P ertussis (Age64 & Under) [id number] Given 09/07/2016 Fluvirin Virus Vaccine 73229 01 02977 Given 11/11/2014 Prevnar 13 [id number] Q2037 Given 09/04/2014 Fluvirin Virus Vaccine 75825 01 Q2037 Given 09/18/2013 Fluvirin Virus Vaccine 34073 01 87657 Given 10/01/2008 Influenza Virus Vaccine 92042 Given 10/08/2003 Tetanus Toxoid Vital Signs Date [...] Test Result H/L Range Note A1c 06/09/2021 [facility]: [place] [address] [phone] Hba1c 10.6 % High <5.7 1 Est Avg Glucose 258 mg/dL High 60 - 110 Comprehensive Chem Profile 06/09/2021 [facility]: [place] [address] [phone] Glucose 296 mg/dL High 74 - 99 [...] 60 mL/min >60 4 Lipid Profile 06/09/2021 [facility]: [place] [address] [phone] Cholesterol 223 mg/dL High 131 - 200 Triglycerides 312 mg/dL High 30 - 150 HDL Cholesterol 38 mg/dL 35 - 60 LDL (Calculated) 123 CALC 50 - 159 Complete Blood Count 06/09/2021 [facility]: [place] [address] [phone] WBC 7.1 x10*3/UL 4.1 - 10.9 RBC [...] x10*3/UL 2.0 - 7.8 Liver Profile 04/22/2021 [facility] [address] [place] [address] [phone] Ast/Sgot 26 U/L Normal 7-37 Alt/SGPT 46 U/L Normal 12-78 Alkaline Phosphatase 91 U/L Normal 45-117 Bilirubin,Total 0.5 mg/dL Normal 0.2-1.0 Bilirubin,Direct 0.2 mg/dL Normal 0.0-0.2 Total Protein 7.7 GM/DL Normal 6.4-8.2 Albumin 3.2 GM/DL Normal 3.2-5.2 Albumin/Globulin Ratio 0.7 Normal Laboratory test finding 04/22/2021 [facility] [address] [place] [address] [phone] Lactic Acid Sepsis Protocol 2.1 mmol/L Critical high 0 .4-2.0 5 Basic Metabolic Profile 04/22/[address] [address] [phone] Glucose, Fasting 234 mg/dL High 70-100 Blood [...] mg/dL Normal 8.8-10.2 Cardiac Marker Panel 04/22/2021 [facility] enter [address] [place], [place] [id number] [phone] CPK Creatine Phosphokinase 78 U/L Normal 39-30 8 CK-MB Value Mass 1.2 NG/ML Normal <3.6 MB/CK Relative Index 1.54 Normal < Or =4 7 Troponin I < 0.02 NG/ML Normal < 0.10 8 CBC With Differential 04/22/2021 [address] [place] [address] [phone] White Blood Count 9.5 10 Normal 4.0-10.0 [...] 36.0-66.0 Lymph % 17.3 % Low 24.0-44.0 [place] % 5.9 % Normal 2.0-8.0 Eos % 2.0 % Normal 0.0-3.0 Baso % 0.6 % Normal 0.0-1.0 Immature Granulocyte % 0.4 % Normal 0-3.0 Nucleated Red Blood Cell % 0.0 % Normal 0-0 Neutrophils # 7.0 10 Normal 1.5-8.5 Lymph # 1.7 10 Normal 1.5-5.0 [place] # 0.6 10 Normal 0.0-0.8 Eos # 0.2 10 Normal 0.0-0.5 Baso # 0.1 10 Normal 0.0-0.2 Respiratory Panel 04/22/2021 [facility] [address] [place] [address] [phone] Respiratory Panel This respiratory <SEE NOTE> 9 Blood Culture 04/22/2021 [facility] [address] [place] [address] [phone] Blood Culture No growth after <SEE NOTE> 10 Laboratory test finding 04/12/[address] [address] [phone] Bedside Glucose 262 mg/dL High 83-110 Laboratory test finding 04/12/[address] [address] [phone] Bedside Glucose 283 mg/dL High 83-110 Laboratory test finding 03/17/[address] [address] [phone] Lactic Acid Sepsis Protocol 2.0 mmol/L Normal 0.4- 2.0 11 Type & Screen -Incl Blood Type,Raghu,AB SC 03/17/[address] [address] [phone] Blood Type A NEGATIVE Normal AB Screen (Indirect Kevin)Vis NEGATIVE Normal Laboratory test finding 03/17/[address] [address] [phone] Lipase 140 U/L Normal 73-393 Basic Metabolic Profile 03/17/[address] [address] [phone] Glucose, Fasting 271 mg/dL High 70-100 Blood [...] 9.6 mg/dL Normal 8.8-10.2 Liver Profile 03/17/2021 [facility] n[facility] [address] [place] [id number] [phone] Ast/Sgot 36 U/L Normal 7-37 Alt/SGPT 42 U/L Normal 12-78 Alkaline Phosphatase 87 U/L Normal 45-117 Bilirubin,Total 0.3 mg/dL Normal 0.2-1.0 Bilirubin,Direct 0.1 mg/dL Normal 0.0-0.2 Total Protein 7.5 GM/DL Normal 6.4-8.2 Albumin 3.2 GM/DL Normal 3.2-5.2 Albumin/Globulin Ratio 0.7 Normal Cardiac Marker Panel 03/17/2021 [facility] enter [address] [place] [address] [phone] CPK Creatine Phosphokinase 78 U/L Normal 39-30 8 CK-MB Value Mass < 1.0 NG/ML Normal <3.6 MB/CK Relative Index 1.28 Normal < Or =4 13 Troponin I < 0.02 NG/ML Normal < 0.10 14 CBC With Differential 03/17/2021 [address] [place] [address] [phone] White Blood Count 9.6 10 Normal 4.0-10.0 [...] 36.0-66.0 Lymph % 23.9 % Low 24.0-44.0 [place] % 5.9 % Normal 2.0-8.0 Eos % 2.6 % Normal 0.0-3.0 Baso % 0.5 % Normal 0.0-1.0 Immature Granulocyte % 0.4 % Normal 0-3.0 Nucleated Red Blood Cell % 0.0 % Normal 0-0 Neutrophils # 6.4 10 Normal 1.5-8.5 Lymph # 2.3 10 Normal 1.5-5.0 [place] # 0.6 10 Normal 0.0-0.8 Eos # 0.3 10 Normal 0.0-0.5 Baso # 0.1 10 Normal 0.0-0.2 Complete Blood Count 02/23/2021 [facility] Trans[facility]iology: [place] [address] [phone] WBC 8.7 x10*3/UL 4.1 - 10.9 RBC [...] 2.0 - 7.8 Basic Metabolic Panel 02/23/2021 [facility]: [place] [address] [phone] Glucose 326 mg/dL High 74 - 99 [...] Low >60 16 Laboratory test finding 02/23/2021 [facility]: Dr Kalpesh Pollack [place], [place] [id number] [phone] Thyroid Stimulating Hormone 1.17 uIU/mL 0.3 6 - 3.74 Ua Dipstick Only 02/23/2021 [facility]: Dr Kalpesh Pollack [place], [place] [address] [phone] Urine Color YELLOW Yellow Urine Appearance CLEAR Clear Urine PH 6.0 units 5.0 - 9.0 Urine Specific [place] 1.020 1.005 - 1.030 Urine Leukocytes NEGATIVE Negative Urine Blood NEGATIVE Negative Urine Protein 3+ Abnormal Negative -Trace Urine Glucose 500 mg/dL mg/dL Abnormal Negative Urine Nitrite NEGATIVE Negative Urine Ketone NEGATIVE mg/dL Negative Urine Bilirubin NEGATIVE Negative Urine Urobilinogen 0.2 mg/dL 0.2 - 1.0 Lyme Disease SCRN With Confirm 02/23/2021 [address] [place] [address] [phone] Lyme Disease IgG/IgM Antibodie <0.91 ISR Normal 0 .00-0.90 17 Lyme Disease IgM Ab Quantitati <0.80 index Normal 0.00-0.79 18 Complete Blood Count 01/05/2021 [facility]: Dr Kalpesh Pollack [place], [place] [address] [phone] WBC 9.0 x10*3/UL 4.1 - 10.9 RBC [...] 2.0 - 7.8 Comprehensive Chem Profile 01/05/2021 [facility]: [place] [address] [phone] Glucose 395 mg/dL High 74 - 99 [...] mL/min >60 21 Laboratory test finding 01/05/2021 [facility]: [place] [address] [phone] Thyroid Stimulating Hormone 1.67 uIU/mL 0.3 6 - 3.74 A1c 01/05/2021 [facility]: [place] [address] [phone] Hba1c 11.6 % High <5.7 22 Est [...] LITTLE GFR LEFT ESRD GFR <15 ON CONCRETE ROD BUSTER 5 Y/N query for Sepsis Lactate Rule: Y 6 Units are mL/min/1.73 m2 Chronic Kidney Disease Staging per NKF: Stage I & II GFR >=60 Normal to Mildly Decreased Stage III GFR 30-59 Moderately Decreased Stage IV GFR 15-29 Severely Decreased Stage V GFR <15 Very Little GFR Left ESRD GFR <15 on CONCRETE ROD BUSTER 7 DIAGNOSIS CRITERIA MMB ng/ml Relative Index (RI) NON-AMI < or = 5 N/A GONZALEZ ZONE > 5 < or = 4 AMI > 5 > 4 8 Troponin I Reference Interva l for [facility] LOCI: 99th Percentile= 0.00-0.045 ng/ml Risk Stratification: [...] Little GFR Left ESRD GFR <15 on CONCRETE ROD BUSTER 13 DIAGNOSIS CRITERIA MMB ng/ml Relative Index (RI) NON-AMI < or = 5 N/A GONZALEZ ZONE > 5 < or = 4 AMI > 5 > 4 14 Troponin I Reference Interva l for [facility] LOCI: 99th Percentile= 0.00-0.045 ng/ml Risk Stratification: [...] LITTLE GFR LEFT ESRD GFR <15 ON CONCRETE ROD BUSTER 17 Negative <0.91 Equivocal 0.91 - 1.09 Positive >1.09 18 Negative <0.80 Equivocal 0.80 - 1.19 Positive >1.19 . IgM levels may peak at 3-6 weeks post infection, then gradually decline. Performed at: RN - [facility] [address] [id number] Transporter Radiology: Beverly Smith MD, Phone: [phone] NOTE: RESULT VERIFIED. 100-125 mg/dL PRE-DIABETES/FASTING >126 mg/dL DIABETES/FASTING 20 NOTE: RESULT VERIFIED. 21 CHRONIC KIDNEY DISEASE STAGI NG PER NKF STAGE I & II GFR >= 60 NORMAL TO MILDLY DECREASED STAGE III GFR 30-59 MODERATELY DECREASED STAGE IV GFR 15-29 SEVERELY DECREASED STAGE V GFR <15 VERY LITTLE GFR LEFT ESRD GFR <15 ON CONCRETE ROD BUSTER 22 NOTE: RESULT VERIFIED. Lab Result Notes: Pre-Diabetes 5.7 - 6.4 % Diabetes = or > 6.5% Procedures Date Code Description Status 06/09/2021 23759 Office/Outpatient Established Mo d MDM 30-39 Min Completed 05/11/2021 31043 Chronic Care MGMT 20 Mins Clinical Staff Time Per Calendar Month Completed 04/06/2021 67365 Complex Chronic Care MGMT Servic e Ea Addl 30 Min Completed 04/06/2021 87214 Complex Chronic Care Management SVC 1St 60 Min Completed 03/26/2021 70094 Jane Cre SRV W/I 7 Days Of DC, C omm W/I 2 Dys Med Rec Completed 03/03/2021 74236 Complex Chronic Care MGMT Servic e Ea Addl 30 Min Completed 03/03/2021 77181 Complex Chronic Care Management SVC 1St 60 Min Completed 02/23/2021 21045 Office/Outpatient Established Mo d MDM 30-39 Min Completed 01/12/2021 93945 Chronic Care MGMT 20 Mins Clinical Staff Time Per Calendar Month Completed 01/12/2021 80526 Chronic Care Management Services Ea Addl 20 Min Completed 01/08/2021 90710 Complex Chronic Care MGMT Servic e Ea Addl 30 Min Completed 01/08/2021 54888 Complex Chronic Care Management SVC 1St 60 Min Completed 01/05/2021 59622 Office/Outpatient Established Mo d MDM 30-39 Min Completed 06/10/2020 [id number] Mammogram Completed 12/23/2019 [id number] Colonoscopy Completed 02/10/2016 [id number] Diabetic Retinal Eye Exam [facility] 10/29/2015 [id number] Colonoscopy Completed 08/03/2013 [id number] Diabetic Retinal Eye Exam [facility] 05/11/2011 [id number] Diabetic Retinal Eye Exam [facility] 09/05/2008 [id number] Colonoscopy Completed Medical Devices Description No Information Available Encounters Type Date Location Provider Dx Diagnosis Office Visit 06/09/2021 8:40a [facility] 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 Flip Mcconnell JR, PA R53.83 [...] nonvenom arthropods, init Office Visit 01/05/2021 10:20a [facility] 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 03/26/2021 E11.65 Type 2 diabetes mellitus with hy perglycemia Vania Friedman [facility] 03/26/2021 I13.0 Hypertensive heart a nd chronic kidney disease with heart failure and stage 1 through stage 4 chronic kidney disease, or unspecified chronic kidney disease Vania Friedman [facility] 03/26/2021 I50.32 Chronic diastolic (congestive) h eart failure Vania Friedman [facility] 03/26/2021 N18.31 Chronic kidney disease, stage 3a Vania Friedman [facility] 03/26/2021 G47.33 Obstructive sleep apnea (adult) (pediatric) Vania Friedman [facility] 03/26/2021 H92.09 Otalgia, unspecified ear Vania Friedman [facility] 03/26/2021 R42 Dizziness and giddiness Vania Granados, [facility] 03/26/2021 E66.01 Morbid (severe) obesity due to e xcess calories Vania Friedman [facility] 03/26/2021 Z68.39 Body mass index [BMI] 39.0-39.9, adult Vania Friedman [facility] 03/03/2021 K57.33 Diverticulitis of la rge [...] hy perglycemia Kalpesh Pollack MD 01/05/2021 Z79.4 FPC (current) use of insul in Kalpesh Pollack [...] 2:30 pm - Kalpesh Pollack MD at [facility] 01/05/2021 - Kalpesh Pollack MD* E11.42 Type 2 diabetes mellitus with diabetic polyneuropathy * E11.65 Type 2 diabetes mellitus with hyperglycemia* Comments:* ABC's meet goal.Diabetic foot and eye exams up to date. TLC discussed. Glycemic index discussed. * Z79.4 FPC (current) use of insulin * I13.0 Hypertensive [...] VERTIG Lavelle. PT HAS BEEN REFERRED TO [facility] Closed 05/04/2021 [facility] [address] [address] [phone] Elizabeth Peterson,JOSE BUFFET RUNNER CONSULT FOR LESIONS LT HAND Closed 01/12/2021 [facility] [place], [place] [phone]
--- OUTSIDE RECORDS SUMMARY | 2021-09-20 14:45 | CCD ---
Author Author [facility] Organization [facility] Address Unknown Phone Unavailable Care Team Providers Care Log Buyer Name Role Phone Kiley, L Enma CHEESE COOK Unavailable Unavailable Kiley, L Enma CHEESE COOK Unavailable Unavailable Kiley, L Enma CHEESE COOK Unavailable Unavailable Kiley, L Enma CHEESE COOK Unavailable Unavailable Kiley, L Enma CHEESE COOK Unavailable Unavailable Kiley, L Enma CHEESE COOK Unavailable Unavailable Kiley, L Enma CHEESE COOK Unavailable Unavailable Kiley, L Enma CHEESE COOK Unavailable Unavailable Kiley, L Enma CHEESE COOK Unavailable Unavailable Kiley, L Enma CHEESE COOK Unavailable Unavailable Kiley, L Enma CHEESE COOK Unavailable Unavailable Kiley, L Enma CHEESE COOK Unavailable Unavailable Kiley, L Enma CHEESE COOK Unavailable Unavailable Kiley, L Enma CHEESE COOK Unavailable Unavailable Kiley, L Enma CHEESE COOK Unavailable Unavailable Kiley, L Enma CHEESE COOK Unavailable Unavailable Kiley, L Enma CHEESE COOK Unavailable Unavailable Kiley, L Enma CHEESE COOK Unavailable Unavailable Kiley, L Enma CHEESE COOK Unavailable Unavailable Kiley, L Enma CHEESE COOK Unavailable Unavailable Kiley, L Enma CHEESE COOK Unavailable Unavailable Kiley, L Enma CHEESE COOK Unavailable Unavailable Kiley, L Enma CHEESE COOK Unavailable Unavailable Kiley, L Enma CHEESE COOK Unavailable Unavailable Kiley, L Enma CHEESE COOK Unavailable Unavailable Cuate SINGH MD Unavailable Unavailable PARSHALL, A MELITON MD Unavailable Unavailable PARSHALL, A MELITON MD Unavailable Unavailable PARSHALL, A MELITON MD Unavailable Unavailable PARSHALL, A MELITON MD Unavailable Unavailable PARSHALL, A MELITON MD Unavailable Unavailable PARSHALL, A MELITON MD Unavailable Unavailable PARSHALL, A MELITON MD Unavailable Unavailable PARSHALL, A MELITON MD Unavailable Unavailable PARSHALL, A MELITON MD Unavailable Unavailable PARSHALL, A MELITON MD Unavailable Unavailable PARSHALL, A MELITON MD Unavailable Unavailable PARSHALL, A MELITON MD Unavailable Unavailable PARSHALL, A MELITON MD Unavailable Unavailable PARSHALL, A MELITON MD Unavailable Unavailable PARSHALL, A MELITON MD Unavailable Unavailable PARSHALL, A MELITON MD Unavailable Unavailable PARSHALL, A MELITON MD Unavailable Unavailable PARSHALL, A MELITON MD Unavailable Unavailable PARSHALL, A MELITON MD Unavailable Unavailable PARSHALL, A MELITON MD Unavailable Unavailable PARSHALL, A MELITON MD Unavailable Unavailable PARSHALL, A MELITON MD Unavailable Unavailable PARSHALL, A MELITON MD Unavailable Unavailable PARSHALL, A MELITON MD Unavailable Unavailable PARSHALL, A MELITON MD Unavailable Unavailable PARSHALL, A MELITON MD Unavailable Unavailable PARSHALL, A MELITON MD Unavailable Unavailable PARSHALL, A MELITON MD Unavailable Unavailable PARSHALL, A MELITON MD Unavailable Unavailable PARSHALL, A MELITON MD Unavailable Unavailable PARSHALL, A MELITON MD Unavailable Unavailable LePine, M Vania HOSPITAL EDUCATOR Unavailable Unavailable LePine, M Vania HOSPITAL EDUCATOR Unavailable Unavailable LePine, M Vania HOSPITAL EDUCATOR Unavailable Unavailable LePine, M Vania HOSPITAL EDUCATOR Unavailable Unavailable LePine, M Vania HOSPITAL EDUCATOR Unavailable Unavailable LePine, M Vania HOSPITAL EDUCATOR Unavailable Unavailable LePine, M Vania HOSPITAL EDUCATOR Unavailable Unavailable LePine, M Vania HOSPITAL EDUCATOR Unavailable Unavailable LePine, M Vania HOSPITAL EDUCATOR Unavailable Unavailable LePine, M Vania HOSPITAL EDUCATOR Unavailable Unavailable LePine, M Vania HOSPITAL EDUCATOR Unavailable Unavailable LePine, M Vania HOSPITAL EDUCATOR Unavailable Unavailable LePine, M Vania HOSPITAL EDUCATOR Unavailable Unavailable LePine, M Vania HOSPITAL EDUCATOR Unavailable Unavailable LePine, M Vania HOSPITAL EDUCATOR Unavailable Unavailable LePine, M Vania HOSPITAL EDUCATOR Unavailable Unavailable LePine, M Vania HOSPITAL EDUCATOR Unavailable Unavailable LePine, M Vania HOSPITAL EDUCATOR Unavailable Unavailable LePine, M Vania HOSPITAL EDUCATOR Unavailable Unavailable LePine, M Vania HOSPITAL EDUCATOR Unavailable Unavailable LePine, M Vania HOSPITAL EDUCATOR Unavailable Unavailable LePine, M Vania HOSPITAL EDUCATOR Unavailable Unavailable LePine, M Vania HOSPITAL EDUCATOR Unavailable Unavailable LePine, M Vania HOSPITAL EDUCATOR Unavailable Unavailable LePine, M Vania HOSPITAL EDUCATOR Unavailable Unavailable LePine, M Vania HOSPITAL EDUCATOR Unavailable Unavailable LePine, M Vania HOSPITAL EDUCATOR Unavailable Unavailable LePine, M Vania HOSPITAL EDUCATOR Unavailable Unavailable LePine, M Vania HOSPITAL EDUCATOR Unavailable Unavailable LePine, M Vania HOSPITAL EDUCATOR Unavailable Unavailable LePine, M Vania HOSPITAL EDUCATOR Unavailable Unavailable LePine, M Vania HOSPITAL EDUCATOR Unavailable Unavailable LePine, M Vania HOSPITAL EDUCATOR Unavailable Unavailable LePine, M Vania HOSPITAL EDUCATOR Unavailable Unavailable LePine, M Vania HOSPITAL EDUCATOR Unavailable Unavailable LePine, M Vania HOSPITAL EDUCATOR Unavailable Unavailable LePine, M Vania HOSPITAL EDUCATOR Unavailable Unavailable LePine, M Vania HOSPITAL EDUCATOR Unavailable Unavailable LePine, M Vania HOSPITAL EDUCATOR Unavailable Unavailable LePine, M Vania HOSPITAL EDUCATOR Unavailable Unavailable LePine, M Vania HOSPITAL EDUCATOR Unavailable Unavailable LePine, M Vania HOSPITAL EDUCATOR Unavailable Unavailable LePine, M Vania HOSPITAL EDUCATOR Unavailable Unavailable LePine, M Vania HOSPITAL EDUCATOR Unavailable Unavailable LePine, M Vania HOSPITAL EDUCATOR Unavailable Unavailable LePine, M Vania HOSPITAL EDUCATOR Unavailable Unavailable LePine, M Vania HOSPITAL EDUCATOR Unavailable Unavailable LePine, M Vania HOSPITAL EDUCATOR Unavailable Unavailable LePine, M Vania HOSPITAL EDUCATOR Unavailable Unavailable LePine, M Vania HOSPITAL EDUCATOR Unavailable Unavailable LePine, M Vania HOSPITAL EDUCATOR Unavailable Unavailable LePine, M Vania HOSPITAL EDUCATOR Unavailable Unavailable LePine, M Vania HOSPITAL EDUCATOR Unavailable Unavailable LePine, M Vania HOSPITAL EDUCATOR Unavailable Unavailable LePine, M Vania HOSPITAL EDUCATOR Unavailable Unavailable LePine, M Vania HOSPITAL EDUCATOR Unavailable Unavailable Rito PENNINGTON MD Unavailable Unavailable Rito PENNINGTON MD Unavailable Unavailable Rito PENNINGTON MD Unavailable Unavailable Rito PENNINGTON MD Unavailable Unavailable Rito PENNINGTON MD Unavailable Unavailable Rito PENNINGTON MD Unavailable Unavailable Nir Lee MD Unavailable Unavailable Nir Lee MD Unavailable Unavailable Nir Lee MD Unavailable Unavailable Nir Lee MD Unavailable Unavailable Nir Lee MD Unavailable Unavailable Nir Lee MD Unavailable Unavailable Nir Lee MD Unavailable Unavailable Nir Lee MD Unavailable Unavailable Nir Lee MD Unavailable Unavailable Nir Lee MD Unavailable Unavailable Nir Lee MD Unavailable Unavailable Nir Lee MD Unavailable Unavailable Nir Lee MD Unavailable Unavailable Nir Lee MD Unavailable Unavailable Nir Lee MD Unavailable Unavailable Nir Lee MD Unavailable Unavailable Nir Lee MD Unavailable Unavailable Nir Lee MD Unavailable Unavailable Nir Lee MD Unavailable Unavailable Nir Lee MD Unavailable Unavailable Nir Lee MD Unavailable Unavailable Nir Lee MD Unavailable Unavailable Nir Lee MD Unavailable Unavailable Nir Lee MD Unavailable Unavailable Nir Lee MD Unavailable Unavailable Nir Lee MD Unavailable Unavailable Nir Lee MD Unavailable Unavailable Nir Lee MD Unavailable Unavailable Nir Lee MD Unavailable Unavailable Nir Lee MD Unavailable Unavailable Nir Lee MD Unavailable Unavailable Nir Lee MD Unavailable Unavailable Nir Lee MD Unavailable Unavailable Nir Lee MD Unavailable Unavailable Nir Lee MD Unavailable Unavailable RosaNir ott MD Unavailable Unavailable Nir Lee MD Unavailable Unavailable Nir Lee MD Unavailable Unavailable Nir eLe MD Unavailable Unavailable Nir Lee MD Unavailable Unavailable Nir Lee MD Unavailable Unavailable Nir Lee MD Unavailable Unavailable Nir Lee MD Unavailable Unavailable Nir Lee MD Unavailable Unavailable Nir Lee MD Unavailable Unavailable Nir Lee MD Unavailable Unavailable Nir Lee MD Unavailable Unavailable Nir Lee MD Unavailable Unavailable Nir Lee MD Unavailable Unavailable Nir Lee MD Unavailable Unavailable DiBella, Concepcion Mcgrath MD Unavailable Unavailable DiBella, Concepcion Mcgrath MD Unavailable Unavailable DiBella, Concepcion Mcgrath MD Unavailable Unavailable DiBella, Concepcion Mcgrath MD Unavailable Unavailable DiBella, Concepcion Mcgrath MD Unavailable Unavailable DiBella, Concepcion Mcgrath MD Unavailable Unavailable DiBella, Concepcion Mcgrath MD Unavailable Unavailable DiBella, Concepcion Mcgrath MD Unavailable Unavailable Rolf Bustos-C Unavailable Unavailable Rolf Bustos PA-C Unavailable Unavailable PICKERAL JR, J RUPA PA-C Unavailable Unavailable PICKERAL JR, J RUPA PA-C Unavailable Unavailable PICKERAL JR, J RUPA PA-C Unavailable Unavailable PICKERAL JR, J RUPA PA-C Unavailable Unavailable PICKERAL JR, J RUPA PA-C Unavailable Unavailable PICKERAL JR, J RUPA PA-C Unavailable Unavailable PICKERAL JR, J RUPA PA-C Unavailable Unavailable PICKERAL JR, J RUPA PA-C Unavailable Unavailable PICKERAL JR, J RUPA PA-C Unavailable Unavailable PICKERAL JR, J RUPA PA-C Unavailable Unavailable PICKERAL JR, J RUPA PA-C Unavailable Unavailable PICKERAL JR, J RUPA PA-C Unavailable Unavailable PICKERAL JR, J RUPA PA-C Unavailable Unavailable PICKERAL JR, J RUPA PA-C Unavailable Unavailable PICKERAL JR, J RUPA PA-C Unavailable Unavailable PICKERAL JR, J RUPA PA-C Unavailable Unavailable PICKERAL JR, J RUPA PA-C Unavailable Unavailable PICKERAL JR, J RUPA PA-C Unavailable Unavailable PICKERAL JR, J RUPA PA-C Unavailable Unavailable PICKERAL JR, J RUPA PA-C Unavailable Unavailable PICKERAL JR, J RUPA PA-C Unavailable Unavailable PICKERAL JR, J RUPA PA-C Unavailable Unavailable PICKERAL JR, J RUPA PA-C Unavailable Unavailable PICKERAL JR, J RUPA PA-C Unavailable Unavailable PICKERAL JR, J RUPA PA-C Unavailable Unavailable PICKERAL JR, J RUPA PA-C Unavailable Unavailable PICKERAL JR, J RUPA PA-C Unavailable Unavailable JakiRafi jackson MD Unavailable Unavailable ThorRafi MD Unavailable Unavailable JakiRafi MD Unavailable Unavailable ThorRafi MD Unavailable Unavailable ThorRafi MD Unavailable Unavailable JakiRafi MD Unavailable Unavailable JakiRafi MD Unavailable Unavailable JakiRafi MD Unavailable Unavailable ThorRafi MD Unavailable Unavailable ThorRafi jackson MD Unavailable Unavailable JakiRafi jackson MD Unavailable Unavailable ThorRafi jackson MD Unavailable Unavailable ThorRafi jackson MD Unavailable Unavailable JakiRafi jackson MD Unavailable Unavailable JakiRafi jackson MD Unavailable Unavailable JakiRafi jackson MD Unavailable Unavailable ThorRafi jackson MD Unavailable Unavailable JaikRafi jackson MD Unavailable Unavailable JakiRafi jackson MD Unavailable Unavailable JakiRafi jackson MD Unavailable Unavailable JakiRafi jackson MD Unavailable Unavailable JakiRafi jackson MD Unavailable Unavailable ThorRafi jackson MD Unavailable Unavailable JakiRafi jackson MD Unavailable Unavailable JakiRafi jackson MD Unavailable Unavailable JakiRafi jackson MD Unavailable Unavailable JakiRafi jackson MD Unavailable Unavailable ThorRafi jackson MD Unavailable Unavailable ThorRafi jackson MD Unavailable Unavailable JakiRafi jackson MD Unavailable Unavailable ThorRafi jackson MD Unavailable Unavailable ThorRafi jackson MD Unavailable Unavailable ThorRafi jackson MD Unavailable Unavailable ThorRafi MD Unavailable Unavailable JakiRafi MD Unavailable Unavailable ThorRafi MD Unavailable Unavailable JakiRafi MD Unavailable Unavailable ThorRafi jackson MD Unavailable Unavailable JakiRafi jackson MD Unavailable Unavailable ThorRafi jackson MD Unavailable Unavailable ThorRafi MD Unavailable Unavailable ThorRafi MD Unavailable Unavailable ThorRafi MD Unavailable Unavailable JakiRafi MD Unavailable Unavailable JakiRafi jackson MD Unavailable Unavailable ThorRafi MD Unavailable Unavailable JakiRafi MD Unavailable Unavailable JakiRafi MD Unavailable Unavailable JakiRafi MD Unavailable Unavailable JakiRafi MD Unavailable Unavailable JakiRafi MD Unavailable Unavailable JakiRafi MD Unavailable Unavailable ThorRafi MD Unavailable Unavailable ThorRafi MD Unavailable Unavailable JakiRafi MD Unavailable Unavailable JakiRafi MD Unavailable Unavailable ThorRafi MD Unavailable Unavailable ThorRafi MD Unavailable Unavailable JakiRafi MD Unavailable Unavailable ThorRafi MD Unavailable Unavailable JakiRafi MD Unavailable Unavailable ThorRafi MD Unavailable Unavailable ThorRafi MD Unavailable Unavailable JakiRafi MD Unavailable Unavailable ThorRafi MD Unavailable Unavailable JakiRafi MD Unavailable Unavailable JakiRafi MD Unavailable Unavailable JakiRafi MD Unavailable Unavailable ThorRafi MD Unavailable Unavailable ThorRafi MD Unavailable Unavailable ThorRafi jackson MD Unavailable Unavailable ThorRafi jackson MD Unavailable Unavailable JakiRafi jackson MD Unavailable Unavailable JakiRafi jackson MD Unavailable Unavailable JakiRafi MD Unavailable Unavailable ThorRafi jackson MD Unavailable Unavailable ThorRafi MD Unavailable Unavailable JakiRafi jackson MD Unavailable Unavailable JakiRafi jackson MD Unavailable Unavailable ThorRafi jackson MD Unavailable Unavailable ThorRafi jackson MD Unavailable Unavailable ThorRafi jackson MD Unavailable Unavailable JakiRafi jackson MD Unavailable Unavailable ThorRafi jackson MD Unavailable Unavailable ThorRafi jackson MD Unavailable Unavailable ThorRafi jackson MD Unavailable Unavailable CHRISTIANO, L JOSE LUIS PA Unavailable Unavailable CHRISTIANO, L JOSE LUIS PA Unavailable Unavailable CHRISTIANO, L JOSE LUIS PA Unavailable Unavailable CHRISTIANO, L JOSE LUIS PA Unavailable Unavailable CHRISTIANO, L JOSE LUIS PA Unavailable Unavailable CHRISTIANO, L JOSE LUIS PA Unavailable Unavailable CHRISTIANO, L JOSE LUIS PA Unavailable Unavailable CHRISTIANO, L JOSE LUIS PA Unavailable Unavailable CHRISTIANO, L JOSE LUIS PA Unavailable Unavailable CHRISTIANO, L JOSE LUIS PA Unavailable Unavailable CHRISITANO, L JOSE LUIS PA Unavailable Unavailable CHRISTIANO, L JOSE LUIS PA Unavailable Unavailable CHRISTIANO, L JOSE LUIS PA Unavailable Unavailable CHRISTIANO, L JOSE LUIS PA Unavailable Unavailable CHRISTIANO, L JOSE LUIS PA Unavailable Unavailable CHRISTIANO, L JOSE LUIS PA Unavailable Unavailable Silas, C Chente PH.D., M.D. Unavailable Unavailable Silas, C Chente PH.D., M.D. Unavailable Unavailable Silas, C Chente PH.D., M.D. Unavailable Unavailable Silas, C Chente PH.D., M.D. Unavailable Unavailable Silas, C Chente PH.D., M.D. Unavailable Unavailable Silas, C Chente PH.D., M.D. Unavailable Unavailable Silas, C Chente PH.D., M.D. Unavailable Unavailable Silas, C Chente PH.D., M.D. Unavailable Unavailable Silas, C Chente PH.D., M.D. Unavailable Unavailable Silas, C Chente PH.D., M.D. Unavailable Unavailable Silas, C Chente PH.D., M.D. Unavailable Unavailable Silas, C Chente PH.D., M.D. Unavailable Unavailable Silas, C Chente PH.D., M.D. Unavailable Unavailable Silas, C Chente PH.D., M.D. Unavailable Unavailable Silas, C Chente PH.D., M.D. Unavailable Unavailable Silas, C Chente PH.D., M.D. Unavailable Unavailable Silas, C Chente PH.D., M.D. Unavailable Unavailable Silas, C Chente PH.D., M.D. Unavailable Unavailable Silas, C Chente PH.D., M.D. Unavailable Unavailable Slias, C Chente PH.D., M.D. Unavailable Unavailable Silas, C Chente PH.D., M.D. Unavailable Unavailable Silas, C Chente PH.D., M.D. Unavailable Unavailable Silas, C Chente PH.D., M.D. Unavailable Unavailable Silas, C Chente PH.D., M.D. Unavailable Unavailable Silas, C Chente PH.D., M.D. Unavailable Unavailable Silas, C Chente PH.D., M.D. Unavailable Unavailable Silas, C Chente PH.D., M.D. Unavailable Unavailable Silas, C Chente PH.D., M.D. Unavailable Unavailable Silas, C Chente PH.D., M.D. Unavailable Unavailable Silas, C Chente PH.D., M.D. Unavailable Unavailable Silas, C Chente PH.D., M.D. Unavailable Unavailable Silas, C Chente PH.D., M.D. Unavailable Unavailable Silas, C Chente PH.D., M.D. Unavailable Unavailable Silas, C Chente PH.D., M.D. Unavailable Unavailable Silas, C Chente PH.D., M.D. Unavailable Unavailable Silas, C Chente PH.D., M.D. Unavailable Unavailable Silas, C Chente PH.D., M.D. Unavailable Unavailable Silas, C Chente PH.D., M.D. Unavailable Unavailable Silas, C Chente PH.D., M.D. Unavailable Unavailable Silas, C Chente PH.D., M.D. Unavailable Unavailable Silas, C Chente PH.D., M.D. Unavailable Unavailable Silas, C Chente PH.D., M.D. Unavailable Unavailable Silas, C Chente PH.D., M.D. Unavailable Unavailable Silas, C Chente PH.D., M.D. Unavailable Unavailable Silas, C Chente PH.D., M.D. Unavailable Unavailable Silas, C Chente PH.D., M.D. Unavailable Unavailable Silas, C Chente PH.D., M.D. Unavailable Unavailable Silas, C Chente PH.D., M.D. Unavailable Unavailable Silas, C Chente PH.D., M.D. Unavailable Unavailable Silas, C Chente PH.D., M.D. Unavailable Unavailable Silas, C Chente PH.D., M.D. Unavailable Unavailable Silas, C Chente PH.D., M.D. Unavailable Unavailable Silas, C Chente PH.D., M.D. Unavailable Unavailable Silas, C Chente PH.D., M.D. Unavailable Unavailable Silas, C Chente PH.D., M.D. Unavailable Unavailable Silas, C Chente PH.D., M.D. Unavailable Unavailable Silas, C Chente PH.D., M.D. Unavailable Unavailable Silas, C Chente PH.D., M.D. Unavailable Unavailable Silas, C Chente PH.D., M.D. Unavailable Unavailable Silas, C Chente PH.D., M.D. Unavailable Unavailable Silas, C Chente PH.D., M.D. Unavailable Unavailable Silas, C Chente PH.D., M.D. Unavailable Unavailable Silas, C Chente PH.D., M.D. Unavailable Unavailable Silas, C Chente PH.D., M.D. Unavailable Unavailable Silas, C Chente PH.D., M.D. Unavailable Unavailable Silas, C Chente PH.D., M.D. Unavailable Unavailable Silas, Ivana Eldridge PH.D., M.D. Unavailable Unavailable Silas, Ivana Eldridge PH.D., M.D. Unavailable Unavailable Silas, Ivana Eldridge PH.D., M.D. Unavailable Unavailable Silas, Ivana Eldridge PH.D., M.D. Unavailable Unavailable Silas, Ivana Eldridge PH.D., M.D. Unavailable Unavailable Silas, Ivana Eldridge PH.D., M.D. Unavailable Unavailable Silas, Ivana Eldridge PH.D., M.D. Unavailable Unavailable Silas, Ivana Eldridge PH.D., M.D. Unavailable Unavailable Silas, Ivana Elrdidge PH.D., M.D. Unavailable Unavailable Silas, Ivana Eldridge PH.D., M.D. Unavailable Unavailable Silas, Ivana Eldridge PH.D., M.D. Unavailable Unavailable Silas, Ivana Eldridge PH.D., M.D. Unavailable Unavailable Silas, Ivana Eldridge PH.D., M.D. Unavailable Unavailable Silas, Ivana Eldridge PH.D., M.D. Unavailable Unavailable Silas, Ivana Eldridge PH.D., M.D. Unavailable Unavailable Silas, Ivana Eldridge PH.D., M.D. Unavailable Unavailable Re-disclosure Warning The records that you are about to access may contain information from federally-assisted alcohol or drug abuse programs. If such information is present, then the following federally mandated warning applies: This information has been disclosed to you from records protected by federal confidentiality rules (42 CFR part 2). The federal rules prohibit you from making any further disclosure of this information unless further disclosure is expressly permitted by the written consent of the person to whom it pertains or as otherwise permitted by 42 CFR part 2. A general authorization for the release of medical or other information is NOT sufficient for this purpose. The Federal rules restrict any use of the information to criminally investigate or prosecute any alcohol or drug abuse patient.The records that you are about to access may contain highly sensitive health information, the redisclosure of which is protected by Article 27-F of the [facility] Public Health law. If you continue you may have access to information: Regarding HIV / AIDS; Provided by facilities licensed or operated by the [facility] Office of Mental Health; or Provided by the [facility] Office for People With Developmental Disabilities. If such information is present, then the following [facility] mandated warning applies: This information has been disclosed to you from confidential records which are protected by state law. State law prohibits you from making any further disclosure of this information without the specific written consent of the person to whom it pertains, or as otherwise permitted by law. Any unauthorized further disclosure in violation of state law may result in a fine or intermediate sentence or both. A general authorization for the release of medical or other information is NOT sufficient authorization for further disc losure. Allergies and Adverse Reactions Type Description Substance Reaction Status Data Source(s ) Drug allergy levofloxacin Levofloxacin Confusion [facility] Drug allergy ciprofloxacin Ciprofloxacin Rash [facility] Drug allergy Sulfa (Sulfonamide Antibiotics) Sulfa (Sulfonami de Antibiotics) Hives [facility] Drug allergy Penicillins Penicillin [facility] Family History Family Member Name Family Member Gender Family Member Status Date o f Status Description Data Source(s) Unknown Male Problem [facility] ([facility]) Unknown Male Problem [facility] ([facility] () Unknown Male Problem [facility] ([facility]) Unknown Unknown Problem [facility] ([facility]) Unknown Female Problem [facility] ([facility] ) Encounters Encounter Providers Location Date Indications Data Source(s ) Emergency Attender: Reji Bustos PA-C 01/2021 08:35:00 PM EDT - 08/16/2021 05:15:00 AM EDT VOMITING, WEAK [facility] VOMITING, WEAK Patient discharged. Outpatient Attender: Enma Magana/Dionicio/Carlos/Yara 06/22/2021 02:00:00 PM EDT [facility] ([facility]) Outpatient Attender: JOSE LUIS RUTH Main Office 06/11/2021 1 1:15:00 AM EDT [facility] ([facility]) Outpatient Attender: Kalpesh Feng 0 06/09/2021 08:40:00 AM EDT [facility] ([facility] ) Outpatient Attender: Chente Rosen PH.D., M.D. [place]/Dionicio/Cuate treadwell/Yara 05/04/2021 02:30:00 PM EDT [facility] ([facility]) Outpatient Attender: Artur Lee MD Main Office 04/29/2021 10:30:00 AM EDT [facility] ([facility]) Emergency Attender: MELITON SINGH MD 04/22 11:04:00 AM EDT - 04/22/2021 12:43:00 PM EDT COUGH,SOB [facility] COUGH,SOB Patient discharged. Outpatient Attender: Vania Feng 03/26 11:20:00 AM EDT [facility] ([facility] ) Outpatient Attender: Enma Magana/Dionicio/Carlos/Reindl 03/01/2021 03:00:00 PM EDT [facility] ([facility], ) Outpatient Attender: RUPA Feng 0 02/23/2021 01:00:00 PM EDT [facility] ([facility] ) Outpatient Attender: Kalpesh Feng 0 01/05/2021 09:20:00 AM EST [facility] ([facility] ) Outpatient Attender: Artur Lee MD Main Office 12/31/2020 08:45:00 AM EST [facility] ([facility]) Outpatient Attender: JOSE LUIS RUTH Main Office 12/11/2020 0 1:30:00 PM EST [facility] ([facility]) Outpatient Attender: Kalpesh Feng 1 12/05/2019 10:00:00 AM EST [facility] ([facility] ) Outpatient Attender: Artur Lee MD Main Office 10/01/2020 10:30:00 AM EST [facility] ([facility]) Emergency Attender: Reji RUTH-CAttender: DANIEL HERNANDEZ MD 09/22/2020 06:13:00 PM EST - 09/22/2020 09:02:00 PM EST CHEST PAIN, SOB [facility] CHEST PAIN, SOB Patient discharged. Outpatient Attender: Kalpesh Feng 1 11/15/2019 01:30:00 PM EST [facility] ([facility] ) Outpatient Attender: Artur Lee MD Main Office 09/15/2020 12:00:00 PM EST [facility] ([facility]) Emergency Attender: Reji Markham: MELITON BRIDGES MD 09/10/2020 07:36:00 PM EDT - 09/10/2020 10:15:00 PM EDT STOMACH PAIN [facility] STOMACH PAIN Patient discharged. Outpatient Attender: Kalpesh Feng 0 07/24/2020 01:45:00 PM EDT MED[facility] ([facility] ) Emergency Attender: Daniel Dominguez MD 05/2020 01:33:00 PM EDT - 07/20/2020 07:15:00 PM EDT GI ISSUE [facility] GI ISSUE Patient discharged. Immunizations Vaccine Date Status Description Data Source(s) COVID-19 VACCINE [employer] 02/12/2021 12:00:00 AM EDT completed [facility] Vaccine Series Complete: YESThis Data wa s Submitted to [facility] Via [employer]. COVID-19 VACCINE [employer] 01/22/2021 12:00:00 AM EST completed [facility] Vaccine Series Complete: NOThis Data was Submitted to [facility] Via [employer]. Influenza, injectable, MDCK, preservative free, silvestre valent 09/15/2020 02:52:00 PM EST completed MEDDYLON ([facility]) Medications Medication Brand Name Start Date Product Form Dose Route Admi nistrative Instructions Pharmacy Instructions Status Indications Reaction Description Data Source(s) 100 unit/mL 08/26/2021 12:00:00 AM EDT insulin pen 15 INJECT 15 UNITS THREE TIMES A DAY UNDER THE SKIN, WITH EACH MEAL, PLUS SLIDING SCALE DIRECTED INJECT 15 UNITS THREE TIMES A DAY UNDER THE SKIN, WITH EACH MEAL, PLUS SLIDING SCALE DIRECTED SOLD: 08/26/2021 [facility] Meclizine Hydrochloride 25 MG Oral Tablet MECLIZINE HCL 08/17/2021 12:00:00 AM EDT tablet 60 TAKE ONE TABLET BY MOUTH THREE TIMES A DAY NEEDED FOR DIZZINESS TAKE ONE TABLET BY MOUTH THREE TIMES A DAY NEEDED F OR DIZZINESS SOLD: 08/26/2021 [facility] 4 mg 08/16/2021 12:00:00 AM EDT tablet 9 TAKE 1 TABLET BY MOUTH EVERY 6 HOURS NEEDED FOR NAUSEA AND VOMITING TAKE 1 TABLET BY MOUTH EVERY 6 HOURS NEEDED FOR NAUSEA AND VOMITING SOLD: 08/16/2021 [facility] 10 mg 07/09/2021 12:00:00 AM EDT tablet 30 TAKE ONE TABLET BY MOUTH AT BEDTIME NEEDED FOR SLEEP MAXIMUM DAILY DOSE = 1 TABLET TAKE ONE TABLET BY MOUTH AT BEDTIME NEEDED FOR SLEEP MAXIMUM DAILY DOSE = 1 TABLET SOLD: 07/17/2021 [facility] Lactobacillus acidophilus [id number] UNT Oral Capsule Probiot ic Acidophilus 06/10/2021 12:00:00 AM EDT ORAL active [facility] ([facility]) nebivolol 5 MG Oral Tablet [Bystolic] Bystolic 06/10/2021 12:00:00 AM EDT ORAL active [facility] ([facility]) gabapentin 100 MG Oral Capsule Gabapentin 06/10/2021 12:00:00 AM EDT ORAL active [facility] ([facility]) 10 mg 05/12/2021 12:00:00 AM EDT tablet 30 TAKE ONE TABLET BY MOUTH EVERY DAY NEEDED FOR SLEEP MAXIMUM DAILY DOSE = 1 TAKE ONE TABLET BY MOUTH EVERY DAY NEEDED FOR SLEEP MAXIMUM DAILY DOSE = 1 SOLD: 05/17/2021 [facility] Flonase Allergy Relief Flonase Allergy Relief 05/04/2021 12:00:00 AM E DT active [facility] ([facility] ) Fluticasone Propionate Nasal [place] 24- Hour Fluticason e Propionate Nasal [place] [facility] 24- Hour 03/26/2021 12:00:00 AM EDT RESPIRATORY active [facility] ([facility]) 90 mcg/actuation 03/26/2021 12:00:00 AM EDT HFA aerosol inha ler 8 INHALE 2 PUFFS BY MOUTH FOUR TIMES A DAY NEEDED FOR COUGH AND FOR SHORTNESS OF BREATH INHALE 2 PUFFS BY MOUTH FOUR TIMES A DAY NEEDED FOR COUGH AND FOR SHORTNESS OF BREATH SOLD: 03/29/2021 [facility] 160-4.5 mcg/actuation 03/26/2021 12:00:00 AM EDT HFA aerosol inhaler 10 INHALE TWO PUFFS BY MOUTH TWICE A DAY INHALE TWO PUFFS BY MOUTH TWICE A DAY SOLD: 03/29/2021 [facility] 5 mg 03/23/2021 12:00:00 AM EDT tablet 28 TAKE ONE TABLET BY MOUTH EVERY 6 HOURS TAKE ONE TABLET BY MOUTH EVERY 6 HOURS SOLD: 03/23/2021 [facility] 10 mg 03/20/2021 12:00:00 AM EDT tablet 30 TAKE ONE TABLET BY MOUTH AT BEDTIME NEEDED FOR SLEEP * MAXIMUM DAILY DOSE = 1 TAKE ONE TABLET BY MOUTH AT BEDTIME NEEDED FOR SLEEP * MAXIMUM DAILY DOSE = 1 SOLD: 03/23/2021 [facility] 500 mg 03/19/2021 12:00:00 AM EDT tablet 14 TAKE ONE TABLET BY MOUTH TWICE A DAY TAKE ONE TABLET BY MOUTH TWICE A DAY SOLD: 03/23/2021 [facility] Metronidazole 500 MG Oral Tablet METRONIDAZOLE 03/19/2021 12:0 0:00 AM EDT tablet 21 TAKE ONE TABLET BY MOUTH THREE T IMES A DAY TAKE ONE TABLET BY MOUTH THREE TIMES A DAY SOLD: 03/23/2021 [facility] Covid-19 vaccine, Unspecified 02/12/2021 12:00:00 AM EDT completed [facility]) Medication administered onsite BIPAP 01/28/2021 12:00:00 AM EDT active [facility] ([facility], ) Covid-19 vaccine, Unspecified 01/21/2021 12:00:00 AM EST completed [facility]) Medication administered onsite 100 unit/mL 01/08/2021 12:00:00 AM EST insulin pen 15 INJECT 10 UNITS UNDER THE SKIN WITH EACH MEAL THREE TIMES A DAY PLUS SLIDING SCALE WITH EACH MEAL DIRECTED INJECT 10 UNITS UNDER THE SKIN WITH EACH MEAL THREE TIMES A DAY PLUS SLIDING SCALE WITH EACH MEAL DIRECTED SOLD: 01/13/2021 [facility] 300 mg 01/06/2021 12:00:00 AM EST capsule 60 TAKE ONE CAPSULE BY MOUTH TWICE A DAY TAKE ONE CAPSULE BY MOUTH TWICE A DAY SOLD: 01/08/2021 [facility] 300 mg 01/06/2021 12:00:00 AM EST capsule 60 TAKE ONE CAPSULE BY MOUTH TWICE A DAY TAKE ONE CAPSULE BY MOUTH TWICE A DAY SOLD: 05/11/2021 [facility] 300 mg 01/06/2021 12:00:00 AM EST capsule 60 TAKE ONE CAPSULE BY MOUTH TWICE A DAY TAKE ONE CAPSULE BY MOUTH TWICE A DAY SOLD: 02/21/2021 [facility] 300 mg 01/06/2021 12:00:00 AM EST capsule 60 TAKE ONE CAPSULE BY MOUTH TWICE A DAY TAKE ONE CAPSULE BY MOUTH TWICE A DAY SOLD: 04/06/2021 [facility] 10 mg 01/06/2021 12:00:00 AM EST tablet 30 TAKE ONE TABLET BY MOUTH EVERY DAY NEEDED FOR SLEEP, MAXIMUM DAILY DOSE = 1 TABLET TAKE ONE TABLET BY MOUTH EVERY DAY NEEDED FOR SLEEP, MAXIMUM DAILY DOSE = 1 TABLET SOLD: 01/08/2021 [facility] Escitalopram 10 MG Oral Tablet Escitalopram Oxalate 01/05/2021 1 2:00:00 AM EST ORAL active [facility] ( [facility]) gabapentin 300 MG Oral Capsule Gabapentin 01/05/2021 12:00:00 AM EST active [facility] ([facility]) Nitroglycerin 0.4 MG Sublingual Tablet Nitroglycerin 12:00:00 AM EST SUBLINGUAL active MEDEN T ([facility]) 0.4 mg 12/11/2020 12:00:00 AM EST tablet, sublingual 25 PLACE ONE TABLET UNDER THE TONGUE EVERY 5 MINUTES FOR UP TO 3 DOSES NEEDED FOR CHEST PAIN. IF CHEST PAIN STILL PERSISTS CONTACT [address] ONE TABLET UNDER THE TONGUE EVERY 5 MINUTES FOR UP TO 3 DOSES NEEDED FOR CHEST PAIN. IF CHEST PAIN STILL PERSISTS CONTACT 911 SOLD: 12/14/2020 [facility] pantoprazole 40 MG Delayed Release Oral Tablet Pantoprazole Sodium 12/07/2020 12:00:00 AM EST ORAL active M EDENT ([facility]) 10 mg 10/06/2020 12:00:00 AM EST tablet 30 TAKE ONE TABLET BY MOUTH EVERY DAY NEEDED FOR SLEEP. MAXIMUM DAILY DOSE = 1 TABLET TAKE ONE TABLET BY MOUTH EVERY DAY NEEDED FOR SLEEP. MAXIMUM DAILY DOSE = 1 TABLET SOLD: 10/07/2020 [facility] 1 gram 10/05/2020 12:00:00 AM EST tablet 120 TAKE ONE TABLET BY MOUTH ONE HOUR BEFORE MEALS (THREE TIMES A DAY) AND AT BEDTIME TAKE ONE TABLET BY MOUTH ONE HOUR BEFORE MEALS (THREE TIMES A DAY) AND AT BEDTIME SOLD: 10/07/2020 [facility] Sucralfate 1000 MG Oral Tablet [Carafate] Carafate 09/15/2020 1 2:00:00 AM EST ORAL active [facility] ([facility]) Administration Of Flu Vaccine 09/15/2020 12:00:00 AM EST completed [facility] Medication administered onsite 1 gram 09/15/2020 12:00:00 AM EST tablet 60 TAKE ONE TABLET BY MOUTH TWICE A DAY TAKE ONE TABLET BY MOUTH TWICE A DAY SOLD: 09/16/2020 [facility] Sucralfate 1000 MG Oral Tablet Sucralfate 09/15/2020 12:00:00 AM EST ORAL active [facility] ([facility]) Gaviscon Advance 09/11/2020 12:00:00 AM EDT a ctive [facility] ([facility]) Esomeprazole 40 MG Delayed Release Oral Capsule Esomeprazole Magnesium 09/11/2020 12:00:00 AM EDT ORAL completed [facility] ([facility]) 500 mg 07/26/2020 12:00:00 AM EDT tablet 8 TAKE ONE TABLET BY MOUTH TWO TIMES A DAY FOR 4 DAYS TAKE ONE TABLET BY MOUTH TWO TIMES A DAY FOR 4 DAYS SO LD: 07/29/2020 [facility] Ciprofloxacin 500 MG Oral Tablet Ciprofloxacin HCL 07/24/2020 12:00 :00 AM EDT ORAL completed [facility] ([facility]) 10 mg 07/23/2020 12:00:00 AM EDT tablet 30 TAKE ONE TABLET BY MOUTH AT BEDTIME NEEDED FOR SLEEP MAXIMUM DAILY DOSE = 1 TAKE ONE TABLET BY MOUTH AT BEDTIME NEEDED FOR SLEEP MAXIMUM DAILY DOSE = 1 SOLD: 07/29/2020 [facility] Metronidazole 500 MG Oral Tablet METRONIDAZOLE 07/21/2020 12:0 0:00 AM EDT tablet 21 TAKE 1 TABLET BY MOUTH EVERY 8 H OURS FOR 7 DAYS TAKE 1 TABLET BY MOUTH EVERY 8 HOURS FOR 7 DAYS SOLD: 07/21/2020 [facility] 500 mg 07/21/2020 12:00:00 AM EDT tablet 14 TAKE 1 TABLET BY MOUTH EVERY 12 HOURS TAKE 1 TABLET BY MOUTH EVERY 12 HOURS SOLD: 07/21/2020 [facility] 50 mg 06/10/2020 12:00:00 AM EDT tablet 30 TAKE ONE TABLET BY MOUTH EVERY DAY TAKE ONE TABLET BY MOUTH EVERY DAY SOLD: 08/17/2020 [facility] Insurance Providers Payer name Policy type / Coverage type Policy ID Covered libertarian ID Covered libertarian's relationship to mathew Policy Mathew Plan Information [employer] (Old) Medigap Part B [id number] 3.3.227.99.4595.98680.0 Self [id number] UMR [facility] [id number] SP [id number] [employer] (Old) Medigap Part B [id number] 2.16840.1.93915 3.3.227.99.4595.73219.0 Self [id number] [employer] (Old) Medigap Part B [id number] 2.16840.1.41720 3.3.227.99.4595.96613.0 Self [id number] [employer] [id number] SP [id number] [employer] (Old) Medigap Part B [id number] 2.840.1.42237 3.3.227.99.4595.74571.0 Self [id number] [employer] (Old) Medigap Part B [id number] 2.0.1.47148 3.3.227.99.4595.95737.0 Self [id number] [employer] (Old) Medigap Part B [id number] 2.16840.1.81564 3.3.227.99.4595.18906.0 Self [id number] [employer] Ppo Medigap Part B [id number] 2.0.1.940783.3.227.99.4595. 58841.0 Self [id number] [employer] Ppo Medigap Part B [id number] 2.840.1.679023.3.227.99.4595. 64858.0 Self [id number] [employer] Ppo Medigap Part B [id number] 2.16840.1.423021.3.227.99.4595. 24538.0 Self [id number] [employer] (Old) Medigap Part B [id number] Self [id number] [employer] Ppo Medigap Part B [id number] 2.16.840.1.318850.3.227.99.4595. 48217.0 Self [id number] Umr [employer] Ppo Medigap Part B [id number] 2.16.840.1.608493.3.227.9 9.4595.46563.0 Self [id number] [employer] (Old) Medigap Part B [id number] 2.16.840.1.64258 3.3.227.99.4595.79852.0 Self [id number] [employer] (Old) Medigap Part B [id number] 2.16.840.1.56794 3.3.227.99.4595.51502.0 Self [id number] [employer] [id number] SP [id number] [employer] (Old) Medigap Part B [id number] 2.16.840.1.52202 3.3.227.99.4595.90985.0 Self [id number] UMR [facility] [id number] SP [id number] [employer] (Old) Medigap Part B [id number] 2.16.840.1.67801 3.3.227.99.4595.66324.0 Self [id number] [employer] Ppo Medigap Part B [id number] Self [employer] Ppo Medigap Part B [id number] 2.16.840.1.939037.3.227.99.4595. 06468.0 Self [id number] [employer] Ppo Medigap Part B [id number] 2.16.840.1.494136.3.227.99.4595. 88773.0 Self [id number] [employer] Medigap Part B HEATHER#[id number] Self HEATHER#[id number] [employer] Medigap Part B [id number] Self Medicare Natl Govt Servic Medicare Primary [id number] 2.16.840.1.754862.3.227.99.4595.96934.0 Self [id number] MEDICARE [id number] SP [id number] Medicare Natl Govt Servic Medicare Primary [id number] Self [id number] Medicare Natl Govt Servic Medicare Primary [id number] 2.0.1.715691.3.227.99.4595.80498.0 Self [id number] Medicare Natl Govt Servic Medicare Primary [id number] 2.0.1.814323.3.227.99.4595.27383.0 Self [id number] Medicare Natl Govt Servic Medicare Primary [id number] 2.0.1.320572.3.227.99.4595.70024.0 Self [id number] Medicare - [facility] Medicare Primary [id number] 2.840.1.043939.3.227.99.177.3292.0 Self [id number] Medicare Natl Govt Servic Medicare Primary [id number] 2.840.1.049122.3.227.99.4595.96067.0 Self [id number] Medicare Natl Govt Servic Medicare Primary [id number] 2.840.1.262890.3.227.99.4595.90315.0 Self [id number] MEDICARE [id number] SP [id number] A Medicare Natl Govt Servic Medicare Primary [id number] 2.840.1.968623.3.227.99.4595.52314.0 Self [id number] Medicare Natl Govt Servic Medicare Primary [id number] 2.840.1.711962.3.227.99.4595.37513.0 Self [id number] Medicare Natl Govt Servic Medicare Primary [id number] 2.840.1.474768.3.227.99.4595.15040.0 Self [id number] Medicare Natl Govt Servic Medicare Primary [id number] 2.840.1.708680.3.227.99.4595.86571.0 Self [id number] Medicare Natl Govt Servic Medicare Primary [id number] 2.0.1.937309.3.227.99.4595.49800.0 Self [id number] Medicare - [facility] Medicare Primary [id number] 2.0.1.1138 83.3.227.99.177.3292.0 Self [id number] Medicare Natl Govt Servic Medicare Primary [id number] 2.0.1.325454.3.227.99.4595.78559.0 Self [id number] Medicare Natl Govt Servic Medicare Primary [id number] 2.0.1.502532.3.227.99.4595.56886.0 Self [id number] Medicare Natl Govt Servic Medicare Primary [id number] 2.0.1.422304.3.227.99.4595.99244.0 Self [id number] Medicare Natl Govt Servic Medicare Primary [id number] 2.0.1.192333.3.227.99.4595.32847.0 Self [id number] Medicare Natl Govt Servic Medicare Primary [id number] 2.0.1.407088.3.227.99.4595.34188.0 Self [id number] Medicare Natl Govt Servic Medicare Primary [id number] 2.0.1.643726.3.227.99.4595.50877.0 Self [id number] Medicare Natl Govt Servic Medicare Primary [id number] Self MEDICARE [id number] SP [id number] A Umr Commercial [id number] 2.0.1.254769.3.227.99.177.3292.0 S elf [id number] Umr ([employer]) Medigap Part B [id number] Self [id number] Medicare (Part B) Medicare Primary [id number] 2.0.1.804834.3.227.99.572.12975.0 Self [id number] Umr Medigap Part B [id number] 2.0.1.848713.3.227.99.572.338 62.0 Self [id number] [employer] PHCS Ppo Medigap Part B [id number] Self [id number] [employer] PHCS Ppo Medigap Part B [id number] 2.0.1.167408.3.227. 99.572.78640.0 Self [id number] Medicare Natl Gov't Servi Medicare Primary [id number] 2.0.1.455895.3.227.99.1767.53666.0 Self [id number] UMR O [id number] S [id number] [employer] PHCS Ppo Medigap Part B [id number] 2.0.1.365997.3.227. 99.572.62152.0 Self [id number] Umr Medigap Part B [id number] 2.0.1.933424.3.227.99.572.338 62.0 Self [id number] Medicare (Part B) Medicare Primary [id number] 2.0.1.716497.3.227.99.572.40793.0 Self [id number] [employer] PHCS Ppo Medigap Part B [id number] 2.840.1.043619.3.227. 99.572.37470.0 Self [id number] Umr Medigap Part B [id number] 2.16.840.1.764901.3.227.99.572.338 62.0 Self [id number] Medicare (Part B) Medicare Primary [id number] 2.0.1.822996.3.227.99.572.06439.0 Self [id number] [employer] Commercial [id number] 2.0.1.114148.3.227.99.177.3292.0 S elf [id number] MEDICARE C [id number] S [id number] [employer] PPO O [id number] S [id number] MEDICARE C [id number] S [id number] A [employer] Medigap Part B [id number] 2.0.1.344970.3.227.99.1767.164 77.0 Self [id number] Medicare Natl Gov't Servi Medicare Primary [id number] 2..1.404880.3.227.99.1767.11170.0 Self [id number] Umr/Uhc/[employer] Medigap Part B [id number] 2..1.244795.3.227.9 9.1767.22168.0 Self [id number] [employer] (pr) Medigap Part B [id number] Self [place] [id number] Self [employer] Commercial [id number] 2..1.040262.3.227.99.177.3292.0 S elf [id number] MEDICARE [id number] SP [id number] A [employer] PPO S [id number] S [id number] A Medicare (Part B) Medicare Primary [id number] Self [id number] MEDICARE P [id number] S [id number] [employer] Medigap Part B [id number] ..1.080696.3.227.99.1767.164 77.0 Self [id number] Medicare Natl Gov't Servi Medicare Primary [id number] ..1.756449.3.227.99.1767.44755.0 Self [id number] r Medigap Part B [id number] Self [id number] MEDICARE [id number] [employer] Medigap Part B [id number] ..1.137967.3.227.99.8646.127 7.0 Self [id number] [place]/NGS Medicare Primary [id number] 2..1.170802.3.227.99.8646.1277.0 Self [id number] [employer] Medigap Part B [id number] ..1.783936.3.227.99.8646.127 7.0 Self [id number] [place]/NGS Medicare Primary [id number] ..1.010997.3.227.99.8646.1277.0 Self [id number] [employer] Medigap Part B [id number] 2..1.411475.3.227.99.8646.127 7.0 Self [id number] [place]/NGS Medicare Primary [id number] ..1.862070.3.227.99.8646.1277.0 Self [id number] [employer] Medigap Part B [id number] 2..1.998895.3.227.99.8646.127 7.0 Self [id number] [place]/NGS Medicare Primary [id number] 2.16.840.1.664478.3.227.99.8646.1277.0 Self [id number] [employer] Medigap Part B [id number] 2.16.840.1.636897.3.227.99.8646.127 7.0 Self [id number] [place] Medicare Primary [id number] 2.16840.1.326875.3.227.99.8646.1277.0 Self [id number] [employer] Medigap Part B [id number] 2.16840.1.236056.3.227.99.8646.127 7.0 Self [id number] [place]/NGS Medicare Primary [id number] 2.840.1.620206.3.227.99.8646.1277.0 Self [id number] [employer] Medigap Part B [id number] 2.840.1.318895.3.227.99.8646.127 7.0 Self [id number] [place] Medicare Primary [id number] 2.840.1.789523.3.227.99.8646.1277.0 Self [id number] [employer] Medigap Part B [id number] 2.16840.1.225471.3.227.99.8646.127 7.0 Self [id number] [place]/[facility] Medicare Primary [id number] 2.840.1.455340.3.227.99.8646.1277.0 Self [id number] [employer] Medigap Part B [id number] 2.840.1.174328.3.227.99.8646.127 7.0 Self [id number] [place]/[facility] Medicare Primary [id number] 2.16840.1.827694.3.227.99.8646.1277.0 Self [id number] [employer] PHCS Ppo Medigap Part B [id number] Self [id number] Medicare (Part B) Medicare Primary [id number] 2.840.1.732402.3.227.99.572.24192.0 Self [id number] Medicare (Part B) Medicare Primary [id number] Self [id number] [employer] Medigap Part B [id number] Self R [facility] [id number] SP [id number] Umr Medigap Part B [id number] 2.0.1.965457.3.227.99.572.338 62.0 Self [id number] [place]/N[place] Medicare Primary [id number] Self [employer] PHCS Ppo Medigap Part B [id number] 2.0.1.062833.3.227. 99.572.76358.0 Self [id number] r Medigap Part B [id number] Self [id number] Medicare (Part B) Medicare Primary [id number] 2.0.1.917696.3.227.99.572.45001.0 Self [id number] [employer] PHCS Ppo Medigap Part B [id number] 2.0.1.222670.3.227. 99.572.29278.0 Self [id number] Umr Medigap Part B [id number] 2.840.1.763417.3.227.99.572.338 62.0 Self [id number] Medicare (Part B) Medicare Primary [id number] 2.0.1.701717.3.227.99.572.97760.0 Self [id number] R [facility] [id number] SP [id number] [employer] PHCS Ppo Medigap Part B [id number] 2.16.840.1.565405.3.227. 99.572.07894.0 Self [id number] Umr Medigap Part B [id number] 2.16.840.1.137103.3.227.99.572.338 62.0 Self [id number] [facility] Ppo Medigap Part B [id number] 2.16.840.1.604481.3.227. 99.572.17132.0 Self [id number] Medicare (Part B) Medicare Primary [id number] 2.16.840.1.042157.3.227.99.572.80537.0 Self [id number] Umr Medigap Part B [id number] 2.16.840.1.790104.3.227.99.572.338 62.0 Self [id number] Problems, Conditions, and Diagnoses Code Display Name Description Problem Type Effective Dates Data Source(s) H91.93 Hearing loss Hearing loss Problem 05/04/2021 12:00:00 A M EDT [facility] ([facility], ) H93.13 Bilateral tinnitus Bilateral tinnitus Problem 12:00:00 AM EDT [facility] ([facility], ) R42 Dizziness and giddiness Dizziness and giddiness Proble m 05/04/2021 12:00:00 AM EDT [facility] ([facility]) J31.0 Chronic rhinitis Chronic rhinitis Problem 05/04/2021 12 :00:00 AM EDT [facility] ([facility]) [id number] Essential hypertension Essential hypertension Problem 05/03/2021 12:00:00 AM EDT [facility] ([facility]) R07.2 Precordial pain Precordial pain Problem 12/11/2020 12:0 0:00 AM EST [facility] ([facility]) [id number] Abdominal pain Abdominal pain Problem 09/15/2020 12:00: 00 AM EST [facility] ([facility]) Surgeries/Procedures Procedure Description Date Indications Data Source(s) Spirometry 06/22/2021 12:00:00 AM EDT M [facility]ENT ([facility], ) OFFICE OUTPATIENT VISIT 25 MINUTES 06/22/2021 [facility] ECG ROUTINE ECG W/LEAST 12 LDS W/I&R 06/11/2021 12:00: 00 AM [facility] OFFICE OUTPATIENT VISIT 25 MINUTES 06/11/2021 12:00:00 AM EDT [facility] ([facility]) OFFICE OUTPATIENT VISIT 25 MINUTES 06/09/2021 12:00:00 AM EDT [facility] ([facility]) Chronic Care MGMT 20 Mins Clinical Staff Time Per Calendar [facility] 05/11/[facility]21 [facility] OUTPATIENT NEW 45 MINUTES 05/04/2021 12:00:00 A [facility] ([facility]) Complex Chronic Care Management SVC 1St 60 Min 021 12:00[facility] Complex Chronic Care MGMT Service Ea Addl 30 Min 04/06 12:00[facility] Measure Blood Oxygen Level Continuous Overnight Monitor 04/06/2021 12:[facility] Jane Cre SRV W/I 7 Days Of DC, Comm W/I 2 Dys Med Rec 03/26/2021 12:00[facility] Complex Chronic Care Management SVC 1St 60 Min 021 12:00[facility] Complex Chronic Care MGMT Service Ea Addl 30 Min 03/03 12:00[facility] OUTPATIENT VISIT 15 MINUTES 03/01/2021 [facility] OFF[facility] OUTPATIENT VISIT 25 MINUTES 02/23/2021 12:00[facility] MYOCARDIAL SPECT MULTIPLE STUDIES 02/02/2021 12:00:00 AM EDT [facility]) CV STRS TST XERS&/OR RX CONT ECG PHYS SI&R 02/02/2021 12:00:00 AM EDT [facility] ([facility]) Chronic Care Management Services Ea Addl 20 Min 2020 12:00:00 AM EST [facility] ([facility]) Chronic Care MGMT 20 Mins Clinical Staff Time Per Calendar M [facility] 01/12/2021 12:00:00 AM [facility] ([facility] ) Complex Chronic Care Management SVC 1St 60 Min 021 12:00:00 AM EST [facility] ([facility]) Complex Chronic Care MGMT Service Ea Addl 30 Min 01/08 12:00:00 AM EST [facility] ([facility]) OFFICE OUTPATIENT VISIT 25 MINUTES 01/05/2021 12:00:00 AM EST [facility] ([facility]) ECG ROUTINE ECG W/LEAST 12 LDS W/I&R 12/11/2020 12:00: 00 AM EST [facility] ([facility]) Plain chest X-ray (procedure) 09/22/2020 07:03:00 PM E [facility] Plain chest X-ray (procedure) 09/22/2020 07:03:00 PM E [facility] Nucleic acid assay (procedure) 09/22/2020 12:00:00 AM [facility] Nucleic acid assay (procedure) 09/22/2020 12:00:00 AM [facility] Plain chest X-ray (procedure) 09/10/2020 07:40:00 PM E [facility] Plain chest X-ray (procedure) 09/10/2020 07:40:00 PM E [facility] Plain chest X-ray (procedure) 09/10/2020 07:40:00 PM E [facility] CT Abd/pel w/o contrast [facility]/10[facility] 09/10/2020 07:39:00 PM [facility] Blood culture for bacteria, including anaerobic screen (proc edure) 09/10/2020 12:00:00 AM [facility] culture for bacteria, including anaerobic screen (proc edure) 09/10/2020 12:00:00 AM EDT [facility] l Blood Culture 09/10/2020 12:00:00 AM EDT [facility] Results ID Date Data Source [id number] 08/22/2021 08:57:00 AM EDT [facility] Name Value Range Interpretation Code Description Data Natalie rce(s) Supporting Document(s) SARS coronavirus 2 RNA [Presence] in Res piratory specimen by ROMELIA with probe detection NEGATIVE [facility] This lab was ordered by [facility] a nd reported by [facility]. ID Date Data Source [id number] 08/16/2021 02:13:00 AM EDT [facility] @08/15/21 2158: 4hr Lactic Acid added. R FLXG = RFX LACTIC.@ DEMARIO DATE was changed from 08/15/21 to 08/16/21@ by LOWELL. Old specimen was [id number]. Name Value Range Interpretation Code Description Data Natalie rce(s) Supporting Document(s) Lactate [Mass/volume] in Serum or Plasma 1.7 mmol/L 0.5-2.2 N [facility] A HIGH RESULT ON THIS 4HR LACTIC ACID WI LL NOT REFLEXANOTHER - YOU MUST ORDER ONE IF YOU WANT IT REPEATED ID Date Data Source [id number] 08/16/2021 12:55:00 AM EDT [facility] ED Physician Documentation NAME: MAC GROSS : 1950 AGE: 71 MR#: [id number] SERVICE DATE: 08/15/[address]: Reji Bustos MD PRIMARY CARE DR: Kalpesh Pollack M.D. ROOM#: [facility] (Adult, General) General Chief Complaint: Multi system (Adult) Stated Complaint: VOMITING, WEAK Time Seen by Provider: 08/15/21 20:48 History of Present Illness Initial Comments: 71-year-old white male type II now insulin- dependent diabetic also with history of hypothyroidism hypertension hyper cholesterolemia COPD and obesity with 4-week history of general malaise with intermittent dizziness nausea vomiting weakness and some cramping abdominal pain and loose stools. No headache no visual disturbance no auditory disturbance focal motor or sensory disturbance but does definitely have some balance issues namely positive left Hallpike's now found on exam and by history. ROS otherwise acutely noncontributory at this time Patient says he has not been able to see as his engine and his truck broke H PSH and EMR data is appreciated , , Allergies/Home Meds Allergies Allergy/AdvReac Type Severity Reaction Status Date / Time ciprofloxacin Allergy Severe Rash Verified 08/15/21 21:00 Penicillins Allergy Intermediate Hives Verified 08/15/21 21:00 Sulfa (Sulfonamide Allergy Intermediate Hives Verified 08/15/21 21:00 Antibiotics) levofloxacin [From Levaquin] AdvReac Mild Confusion Verified 08/15/21 21:00 Home Medications Medication Instructions Recorded Confirmed Last Taken Type irbesartan 150 mg tablet 150 mg PO DAILY 05/27/20 09/22/20 09/22/20 History levothyroxine 125 mcg tablet 125 mcg PO DAILY 05/27/20 09/22/20 09/22/20 History nebivolol 5 mg tablet (Bystolic) 5 mg PO DAILY 05/27/20 09/22/20 09/22/20 History pantoprazole 20 mg tablet,delayed 40 mg PO DAILY 05/27/20 09/22/20 09/22/20 History release (Protonix) spironolactone 25 mg tablet 25 mg PO DAILY 05/27/20 09/22/20 09/22/20 History torsemide 20 mg tablet 20 mg PO DAILY 05/27/20 09/22/20 09/22/20 History albuterol sulfate 90 mcg/actuation 2 puffs IH QID PRN #18 gm 06/01/20 09/22/20 09/22/20 Rx aerosol inhaler budesonide-formoterol HFA 80 2 puffs IH BID #10.2 gm 06/01/20 09/22/20 09/22/20 Rx mcg-4.5 mcg/actuation aerosol inhaler (Symbicort) finasteride 5 mg tablet 5 mg PO DAILY #30 tab 06/01/20 09/22/20 09/22/20 Rx tamsulosin 0.4 mg capsule 0.4 mg PO DAILY #30 cap 06/01/20 09/22/20 09/22/20 Rx insulin glargine U-300 conc 300 100 unit SUBCUT HS 06/06/20 09/22/20 09/21/20 History unit/mL (3 mL) subcutaneous pen (Toujeo Max U-300 SoloStar) insulin lispro 100 unit/mL 10 unit SUBCUT TIDWM 06/08/20 09/22/20 09/22/20 History subcutaneous pen (Humalog KwikPen (U-100) Insulin) insulin lispro 100 unit/mL See Rx Instructions .ROUTE .COMPLEX 06/08/20 09/22/20 09/22/20 History subcutaneous pen (Humalog KwikPen (U-100) Insulin) nitrofurantoin macrocrystal 100 mg 100 mg PO BID #14 cap 06/08/20 09/22/20 09/22/20 Rx capsule ciprofloxacin HCl 500 mg tablet 500 mg PO Q12HR #14 tab 07/20/20 09/22/20 09/22/20 Rx (Cipro) metronidazole 500 mg tablet 500 mg PO Q8H 7 Days #21 tab 07/20/20 09/22/20 09/22/20 Rx (Flagyl) meclizine 25 mg tablet 25 mg PO TID PRN #60 tab 08/16/21 Unknown Rx ondansetron HCl 4 mg tablet 4 mg PO Q6HR PRN #30 tab 08/16/21 Unknown Rx (Zofran) PMH (from Triage) Patient Medical History PMH Reviewed/Updated as Needed: Yes PMH/PSH from Triage: Medical History (Updated 08/15/21 @ 20:59 by Barb Pantoja) COPD (chronic obstructive pulmonary disease) (Medical) J44.9 Diabetes mellitus (Medical) E11.9 GERD (gastroesophageal reflux disease) (Medical) K21.9 Hx of diabetic gastroparesis (Medical) Z86.39 Hx of diverticulitis of colon (Medical) Z87.19 Hx of hernia repair (Medical) Z98.890, Z87.19 Hx of partial thyroidectomy (Medical) Z90.09 Hypothyroidism (Medical) E03.9 Surgical History (Updated 09/22/20 @ 19:17 by Barb Pantoja) Hx of hernia repair (Surgical) Z98.890, Z87.19 Hx of partial thyroidectomy (Surgical) Z90.09 Hx Drug Resistant Infections Hx MRSA: (Methicillin-resistant Staphylococcus aureus): No Hx VRE (Vancomycin-resistant enterococci): No Hx C.Diff: No Hx CRKP: No Hx Other Resistant Infection?: No Isolation: Standard precautions Hx Recent Travel Out of the country within 10 days (where): No Hx Fever with a rash?: No Nurse screening for coronavirus: Recent Travel outside the No country (where) Social History Are you in a relationship with/Does anyone hit you, yell/swear at you, steal from you?: No Substance Use Smoking Status: Former smoker Tobacco Use Hx Chewing Tobacco Use: No Vaccination History Hx/Date of Tetanus, Diphtheria Vaccination: Yes Hx/Date of Influenza Vaccination: Yes Hx/Date of Pneumococcal Vaccination: Yes PFSH Medical History (Updated 08/15/21 @ 20:59 by Barb Pantoja) COPD (chronic obstructive pulmonary disease) Diabetes mellitus GERD (gastroesophageal reflux disease) Hx of diabetic gastroparesis Hx of diverticulitis of colon Hypothyroidism Surgical History Hx of hernia repair Hx of partial thyroidectomy Social History Does the Patient have a Healthcare Proxy: Yes Does Patient have a DNR?: No Does Patient have a Living Will?: No Does the Patient have a MOLST?: No Advance Directives on File or in chart?: No Hx Recent Travel (where): No Smoking Status: Former smoker ROS Review of Systems ROS Narrative: ROS data limited to that of the pertinent data of the HPI only. Otherwise entirely negative at this time Physical Exam General General appearance: alert, in no apparent distress, anxious and obese Head Head exam: Present atraumatic, normocephalic, normal inspection and other (+ L [place] ) Eye Eye exam: Present normal apperance, PERRL and EOMI; Absent scleral icterus or nystagmus Pupils: Present normal accommodation ENT ENT exam: Present normal exam and normal orophraynx Neck Neck exam: Present normal inspection, supple and other (no bruits); Absent tenderness, meningismus or lymphadenopathy Respiratory Respiratory exam: Present normal lung sounds bilaterally; Absent respiratory distress or prolonged expiratory Cardiovascular Cardiovascular Exam: Present regular rate, normal rhythm, normal heart sounds and no murmur GI/Abdominal GI/Abdominal exam: Present Abd soft, bowel sounds present all quadrents, soft, distended and normal bowel sounds; Absent tenderness, guarding, rebound, rigid, organomegaly, bruit, hernia or pulsatile mass Rectal Rectal exam: Present deferred exam: Present other (deferred); Absent testicular tenderness Extremities Exam Extremities exam: Present full ROM and capillary refill brisk; Absent tenderness, pedal edema, jointswelling or calf tenderness Back Exam Back exam: Present normal inspection; Absent CVA tenderness (R), CVA tenderness (L), paraspinal tenderness or vertebral tenderness Neurological Exam Neurological exam: Present alert, oriented X3, CN II-XII intact and normal gait; Absent motor sensory deficit Psychiatric Psychiatric exam: Present normal affect and anxious Skin Skin exam: Present warm, dry and intact; Absent rash or cyanosis Vital Signs Vital Signs: Vital Signs 08/15/21 20:36 08/16/21 01:06 Temperature 97.4 F L 98.0 F Pulse Rate 74 62 Respiratory Rate 16 18 Blood Pressure 179/94 154/90 O2 Sat by Pulse Oximetry 96 97 MDM (comprehensive) Lab Data Labs: 08/15/21 21:30 08/15/21 21:30 Laboratory Results Last 24 hours 08/15/21 21:30: WBC 8.2, RBC 4.13 L, Hgb 12.9 L, Hct 36.9 L, MCV 89, MCH 31, MCHC 35, RDW 13, Plt Count 183, MPV 9.5, Immature Gran % (Auto) 0.5, Neut % (Auto) 66.6, Lymph % (Auto) 23.4, Brooke % (Auto) 6.1, Eos % (Auto) 2.7, Baso % (Auto) 0.7, Lymph # (Auto) 1.9, Abs Immat Gran (auto) 0.0, Add Manual Diff No, Absolute Neutrophils 5.4, Monocytes # 0.5, Absolute Eosinophils 0.2, Absolute Basophils 0.1 08/15/21 21:30: PT 10.9, INR 1.0, PTT (Marilu) 28.8 08/15/21 21:30: Sodium 135, Potassium 4.5, Chloride 101, Carbon Dioxide 26, Anion Gap 13, BUN 16, Creatinine 1.2 H, GFR Calculation 60, Glucose 297 H, Calcium 10.3 H D, Total Bilirubin 0.3, AST 37 H, ALT 65 H, Alkaline Phosphatase 81, Troponin I Less than 0.015, C-Reactive Protein 8.4 H, Sok-W-Iifyvigliyb Pept 119.00, Serum Total Protein 7.8, Albumin 3.1 L, Lipase 127, TSH 1.75 08/15/21 21:30: Lactic Acid 2.3 H 08/15/21 21:30: Ammonia 12 08/15/21 23:36: Urine Color Yellow, Urine Appearance Clear, Urine pH 5.5, Ur Specific [place] 1.015,Urine Protein 100 mg/dl H, Urine Ketones Negative, Urine Blood Negative, Urine Nitrate Negative, Urine Bilirubin Negative, Urine Urobilinogen 0.2 eu/dl, Ur Leukocyte Esterase Negative, Add Ur Microanalysis Microscopic added, Urine RBC 1-2, Urine WBC Occasional, Ur Squamous Epith Cells Few, Urine Glucose > 1000 mg/dl A 08/16/21 01:40: Lactic Acid 1.7 Microbiology 08/15/21 21:21 Nasal SARS Antigen (LFIA) - Final BinaxNow Covid -19 Ag Negative EKG Data -: EKG Interpreted by Me (77 rsr lad RBBB nssts low volt intervals otherwise unremark (min tang) EKG Data Compared to previous EKG there's: no significant change Radiology Data Radiology impressions: CT head wnl ; CT thorax unremarkable CT abd pel No acute findings Medical Decision Making Free Text/Narative:: Pt unchanges through ED visit vss Differential Diagnosis Differential Diagnosis: see Dx Critical Care Time Critical Care Time Critical Care Time: Yes ED Critical Care Time - Select One: 31-74 Minutes Total Critical Care Time: 44 Critical Care Time: see ED w/u Plan Plan Plan: per above DC data Visit Medications Administered ED medications:: Medications Discontinued Medications Generic Name Dose Route Start Last Admin Trade Name F req PRN Reason Stop Dose Admin Meclizine HCl 25 mg 08/16/21 01:02 08/16/21 01:31 Meclizine Hcl 25 Mg Tablet PO 08/16/21 01:03 25 mg 1T ONE Administration Meclizine HCl Confirm 08/16/21 01:34 08/16/21 01:37 Meclizine Hcl 25 Mg Tablet Administered 08/16/21 01:35 Not Given Dose 25 mg .ROUTE .STK-MED ONE Ondansetron HCl 8 mg 08/16/21 01:02 08/16/21 01:30 Ondansetron Hcl Odt 4 Mg Tablet PO 08/16/21 01:03 8 mg TO GO ONE Administration Discharge Plan Admission/Discharge Dx Primary DC Diagnosis: Recurrent L Labyrithitis with n/v / Dehydration ED Provider: Reji Bustos ED Status: Ready for Discharge Time Seen by Provider: 08/15/21 20:48 Triaged At: 08/15/21 20:36 Condition Condition: Stable Discharge Detail Disposition: Home, Self-Care Med Rec New Prescriptions: New meclizine 25 mg tablet 25 mg PO TID PRN (Reason: dizziness) Qty: 60 0RF ondansetron HCl [Zofran] 4 mg tablet 4 mg PO Q6HR PRN (Reason: nausea and vomiting) Qty: 30 0RF No Action torsemide 20 mg Tablet 20 mg PO DAILY 0RF pantoprazole [Protonix] 20 mg Tablet,Delayed Release (Dr/Ec) 40 mg PO DAILY 0RF irbesartan 150 mg Tablet 150 mg PO DAILY 0RF Bystolic 5 mg Tablet 5 mg PO DAILY 0RF spironolactone 25 mg tablet 25 mg PO DAILY 0RF Label Comments: T ANGELICA ONE TABLET BY MOUTH EVERY DAY levothyroxine 125 mcg tablet 125 mcg PO DAILY 0RF Label Comments: TAKE ONE TABLET BY MOUTH EVERY DAY ON AN EMPTY STOMACH tamsulosin 0.4 mg Capsule 0.4 mg PO DAILY Qty: 30 0RF Label Comments: you had a dose today 0838 finasteride 5 mg Tablet 5 mg PO DAILY Qty: 30 0RF Label Comments: you had a dose today at 0837 budesonide-formoterol [Symbicort] 80-4.5 mcg/actuation HFA aerosol inhaler 2 puffs IH BID Qty: 10.2 0RF Label Comments: patient states pharmacy did not refil Rx albuterol sulfate 90 mcg/actuation HFA aerosol inhaler 2 puffs IH QID PRN (Reason: shortness of breath or wheezing) Qty: 18 0RF Toujeo Max U-300 SoloStar 300 unit/mL (3 mL) insulin pen 100 unit SUBCUT HS 0RF nitrofurantoin macrocrystal 100 mg capsule 100 mg PO BID Qty: 14 0RF Rx Instructions: must administer with a meal/food insulin lispro [Humalog KwikPen Insulin] 100 unit/mL insulin pen 10 unit SUBCUT TIDWM 0RF insulin lispro [Humalog KwikPen Insulin] 100 unit/mL Insulin Pen See Rx Instructions .ROUTE .COMPLEX 0RF Label Comments: you had 8 units at 1156 today Rx Instructions: if blood glucose is: 101-150 inject 2 units 151-200 inject 3 units 201-250 inject 4 units 251-300 inject 5 units 301-350 inject 6 units 351-400 inject 7 units greater than 400 call your doctor ciprofloxacin HCl [Cipro] 500 mg tablet 500 mg PO Q12HR Qty: 14 0RF metronidazole [Flagyl] 500 mg tablet 500 mg PO Q8H 7 Days Qty: 21 0RF Discharge Education Printouts: Dehydration (ED), Labyrinthitis (ED), Acute Nausea and Vomiting (ED) Follow Up Visit/Referrals: Isidro Magana [PHYSICIAN] - Kalpesh Pollack M.D. [Primary Care Provider] - Follow Up Care/Instructions Diet/Activity/Wound Care..: see Dx's see Rx's - stop if you get too dried out or fast heart etc keep well hydrated Better BS control diet for DM see pcp in 3 d see ENT salty RTED if sx increase or any new ssx or fever or rash , , *Discharge Patient* Discharge Orders: Discharge Order (Routine); Ordered 08/16/21 Ordered By: Reji Bustos Report Signers: <Electronically signed by Reji Bustos MD> Reji Bustos MD 08/16/21 0515 Reji Bustos MD SIGNATURE DA Report Cosigners: D: SELINA 08/16/2154 T: SELINA 08/16/2154 CC: Kalpesh Pollack M.D. Name Value Range Interpretation Code Description Data Natalie rce(s) Supporting Document(s) ID Date Data Source [id number] 08/15/2021 11:53:00 PM EDT [facility] Reason for ordering culture: Abnormal fi ndings UA@08/15/21 2353: UA W/ MICRO added. RFLXG = UMIC CIF.Method of Collection:: Voided Reason for ordering culture: Abnormal fi ndings UA@08/15/21 2353: UA W/ MICRO added. RFLXG = UMIC CIF.Method of Collection:: Voided Name Value Range Interpretation Code Description Data Natalie rce(s) Supporting Document(s) Color of Urine [facility] Appearance of Urine CLEAR [facility] pH of Urine by Test strip 5.5 5-8 [facility] Specific gravity of Urine by Refractometry 1.015 1.005-1.030 [facility] Leukocyte esterase [Presence] in Urine by Test strip NEGAT RIVERA [facility] Nitrite [Presence] in Urine by Test strip NEGATIVE [facility] Protein [Presence] in Urine by Test strip NEGATIVE Above high normal [facility] @DO MICRO!!!! Glucose [Mass/volume] in Urine by Automated test strip > 1000 mg /dl NEGATIVE Abnormal (applies to non-numeric results) [facility] Ketones [Presence] in Urine by Test strip NEGATIVE [facility] Urobilinogen [Presence] in Urine 0.2-1 EU/dl [facility] Bilirubin.total [Presence] in Urine by Automated test strip NEGATIVE [facility] Erythrocytes [#/volume] in Urine by Test strip NEGATIVE NEGATIVE [facility] URINE MICROSCOPIC? (CIF) Microscopic Added [facility] ID Date Data Source [id number] 08/15/2021 11:53:00 PM EDT [facility] Reason for ordering culture: Abnormal fi ndings UA@08/15/21 2353: UA W/ MICRO added. RFLXG = UMIC CIF.Method of Collection:: Voided Reason for ordering culture: Abnormal fi ndings UA@08/15/21 2353: UA W/ MICRO added. RFLXG = UMIC CIF.Method of Collection:: Voided Name Value Range Interpretation Code Description Data Natalie rce(s) Supporting Document(s) Erythrocytes [#/volume] in Urine by Manual count 1-2 /hpf 0-5 [facility] Leukocytes [#/volume] in Urine by Manual count OCCASIONAL 0-5 [facility] Cells [Type] in Urine sediment by Light microscopy [facility] ID Date Data Source [id number] 08/15/2021 10:40:00 PM EDT [facility] [address] [place] [address] [phone] NAME SEX PT STATUS ACCOUNT NUMBER MAC GROSS [facility] ER [id number] ORDERING PHYSICIAN LOCATION MEDICAL RECORD NO. Reji Bustos MD ER [id number] ATTENDING PHYSICIAN DATE OF DATE OF EXAM/TIME Kalpesh Pollack MD 1950 08/15/212108 TYPE / EXAM CT Head without contrast REASON FOR EXAM vertigo n/v gen malaise CP Clinical History/Indication for Exam: vertigo n/v gen malaise CP CT brain without contrast 08/15/2021 Clinical information: Vertigo, nausea, vomiting, generalized malaise. Technique: Routine noncontrast CT brain. Comparison: None. Findings: There is no evidence of an acute intracranial hemorrhage or infarction in the brain. There is no midline shift, intracranial mass, or mass-effect. There is no extra-axial fluid collection or hydrocephalus. Visualized paranasal sinuses and mastoids appear clear. There is mild arterial atherosclerosis. Impression: 1. No acute process in the brain. Automatic exposure control was used as a dose lowering technique. REPORT SIGNATURE ON FILE 08/15/2021 (22:40 Eastern Time ) Signed by: René Chavarria M.D. Reported By René Chavarria MD on 08/15/212239 Signed By René Chavarria MD on 08/15/212239 Date Time CC: René Chavarria MD; Kalpesh Pollack M.D. Techn: BAIAB Trans Dt/Tm: Trans by: DT Prt Dt/Tm: 1006-2573: Total DLP = 500.00 mGy-cm 1901-4892: Total Radiation Dose = 1.5500 mSv Lifetime Dose: 100.0800 mSv Name Value Range Interpretation Code Description Data Natalie rce(s) Supporting Document(s) ID Date Data Source [id number] 08/15/2021 10:38:00 PM EDT [facility] [address] [place] [address] [phone] NAME SEX PT STATUS ACCOUNT NUMBER MAC GROSS REG [id number] ORDERING PHYSICIAN LOCATION MEDICAL RECORD NO. Reji Bustos MD ER [id number] ATTENDING PHYSICIAN DATE OF DATE OF EXAM/TIME Kalpesh Pollack MD 1950 08/15/212108 TYPE / EXAM CT Abd/pel w/o contrast REASON FOR EXAM vertigo n/v gen malaise CP Clinical History/Indication for Exam: vertigo n/v gen malaise CP CT ABDOMEN AND PELVIS WITHOUT INTRAVENOUS CONTRAST INDICATION: vertigo n/v gen malaise CP TECHNIQUE: Axial computed tomography images of the abdomen and pelvis without intravenous contrast. Sagittal and coronal reformatted images were created and reviewed. This CT exam was performed using one or more of the following dose reduction techniques: automated exposure control,adjustment of the mA and/or kV according to patient size, and/or use of iterative reconstruction technique. COMPARISON: 09/10/20 FINDINGS: Lung bases: Unremarkable. No mass. No consolidation. Pleural space: Unremarkable. No significant effusion. No pneumothorax. ABDOMEN: Liver: Hepatomegaly at 20 cm. Gallbladder and bile ducts: Unremarkable. No calcified stones. No ductal dilation. Pancreas: Mild peripancreatic edema. No ductal dilation. Spleen: Splenomegaly at 15 cm. Adrenals: Unremarkable. No mass. Kidneys and ureters: Unremarkable. No obstructing stones. No hydronephrosis. Stomach and bowel: There is moderate diverticulosis of the sigmoid colon, but no definite diverticulitis. No obstruction. PELVIS: Appendix: Normal appendix. Bladder: Moderately distended urinary bladder. No stones. Reproductive: Unremarkable as visualized. ABDOMEN and PELVIS: Intraperitoneal space: Unremarkable. No free air. No significant fluid collection. Bones/joints: No acute fracture. No dislocation. Soft tissues: Unremarkable. Vasculature: Unremarkable. No abdominal aortic aneurysm. Lymph nodes: Unremarkable. No enlarged lymph nodes. IMPRESSION: 1. Mild peripancreatic edema, could represent pancreatitis in the appropriate clinical setting. 2. Hepatomegaly at 20 cm. 3. There is moderate diverticulosis of the sigmoid colon, but no definite diverticulitis. 4. Splenomegaly at 15 cm. 5. Normal appendix. Automatic exposure control was used as a dose lowering technique. REPORT SIGNATURE ON FILE 08/15/2021 (22:38 Eastern Time ) Signed by: Namrata Wyatt M.D. Reported By Edmundo Ott MD on 08/15/212237 Signed By Edmundo Ott MD on 08/15/212237 Date Time CC: Kalpesh Pollack M.D.; Edmundo Ott MD Techn: BAIAB Trans Dt/Tm: Trans by: DT Prt Dt/Tm: 1067-5391: Total DLP = 764.00 mGy-cm 8275-8406: Total Radiation Dose = 11.4600 mSv Lifetime Dose: 100.0800 mSv Name Value Range Interpretation Code Description Data Natalie rce(s) Supporting Document(s) ID Date Data Source [id number] 08/15/2021 10:22:00 PM EDT [facility] [address] [place] [address] [phone] NAME SEX PT STATUS ACCOUNT NUMBER [facility] ER [id number] ORDERING PHYSICIAN LOCATION MEDICAL RECORD NO. Reji Bustos MD ER [id number] ATTENDING PHYSICIAN DATE OF DATE OF EXAM/TIME Kalpesh Pollack MD 1950 08/15/212108 TYPE / EXAM CT Thorax without contrast REASON FOR EXAM vertigo n/v gen malaise CP Clinical History/Indication for Exam: vertigo n/v gen malaise CP Chest pain and general malaise CT SCAN OF THE CHEST WITHOUT CONTRAST A CT scan of the chest was performed by obtaining thin transaxial images without contrast on a multidetector CT scan. Dose reduction technique was applied. Compared to today's portable chest x-ray. The lungs are clear without infiltrates, nodules, or pleural effusions. The trachea and mainstem bronchi are patent. Coronary artery calcifications are present. The heart size is normal. The thoracic aorta and the thoracic esophagus have a normal caliber. Mild arthritis is present in the thoracic spine. The patient is morbidly obese with corresponding fatty infiltration of the liver. The adrenal glands are normal. IMPRESSION: 1. Coronary artery disease without cardiomegaly. 2. No pulmonary disease. 3. Morbid obesity with a fatty liver. Automatic exposure control was used as a dose lowering technique. REPORT SIGNATURE ON FILE 08/15/2021 (22:22 Eastern Time ) Signed by: Gaurang Anthony M.D. Reported By Gaurang Anthony MD on 08/15/212221 Signed By Gaurang Anthony MD on 08/15/212221 Date Time CC: Kalpesh Pollack M.D.; Gaurang Anthony M.D. Techn: BAIAB Trans Dt/Tm: Trans by: DT Prt Dt/Tm: 5702-4698: Total DLP = 700.00 mGy-cm 5460-8262: Total Radiation Dose = 9.1000 mSv Lifetime Dose: 100.0800 mSv Name Value Range Interpretation Code Description Data Natalie rce(s) Supporting Document(s) ID Date Data Source [id number] 08/15/2021 09:51:00 PM EDT [facility] [address] [facility] [place] [id number] [phone] NAME SEX PT STATUS ACCOUNT NUMBER MAC GROSS [facility] ER [id number] ORDERING PHYSICIAN LOCATION MEDICAL RECORD NO. Reji Bustos MD ER [id number] ATTENDING PHYSICIAN DATE OF DATE OF EXAM/TIME Kalpesh Pollack MD 1950 08/15/212108 TYPE / EXAM Xray Chest One View REASON FOR EXAM sob fever Clinical History/Indication for Exam: sob fever CHEST X-RAY ONE VIEW. The patient is being evaluated for shortness of breath and fever. The current examination is compared with an earlier study from 09/22/20. The lungs are normally aerated. No infiltrates are visible though the retrocardiac region is obscured. The pulmonary vascularity is normal. The heart is normal for a portable AP projection. Calcification is seen in the aortic arch. Cardiac monitoring wires project over the thorax. Impression: Normal chest REPORT SIGNATURE ON FILE 08/15/2021 (21:51 Eastern Time ) Signed by: Mary Beth Almazan M.D. Board Certified Radiologist Reported By Mary Beth Almazan MD on 08/15/212150 Signed By Mary Beth Almazan MD on 08/15/212150 Date Time CC: Kalpesh Pollack M.D.; Mary Beth Almazan MD Techn: BAIAB Trans Dt/Tm: Trans by: DT Prt Dt/Tm: 7412-6561: Total DLP = 0.00 mGy-cm Fluoroscopy Time (in secs): Name Value Range Interpretation Code Description Data Natalie rce(s) Supporting Document(s) ID Date Data Source [id number] 08/15/2021 09:35:00 PM EDT [facility] Anticoagulant or Thrombolytic medication : Unknown Special Instructions: Lab may order repe at test if initial test elevatedPhysician If elevated, reflex second test in 4-6 hrs Name Value Range Interpretation Code Description Data Natalie rce(s) Supporting Document(s) Leukocytes [#/volume] in Blood by Automated count 8.2 10*3/uL 4.45-10 .71 N [facility] Erythrocytes [#/volume] in Blood by Automated count 4.13 10*6/uL 4.3-6.1 Below low normal [facility] Hemoglobin [Moles/volume] in Blood 12.9 g/dL 13-18 Below low no rmal [facility] Hematocrit [Volume Fraction] of Blood by Automated count 36.9 % 42-52 Below low normal [facility] Erythrocyte mean corpuscular volume [Ent itic volume] in Cord blood by Automated count 89 fL 80-96 N [facility] ital Erythrocyte mean corpuscular hemoglobin [Entitic mass] by Au tomated count 31 pg 27-31 N [facility] Erythrocyte mean corpuscular hemoglobin concentration [Mass/volume] in Cord blood 35 g/dL 33-37 N [facility] ital Erythrocyte distribution width [Entitic volume] by Automated count 13 % 11-15 N [facility] Platelets [#/volume] in Blood by Automated count 183 10*3/uL 130-472 N [facility] Platelet mean volume [Entitic volume] in Blood 9.5 fL 9.1-13.1 N [facility] Neutrophils/100 leukocytes in Blood by Automated count 66.6 % 41- 77 N [facility] Neutrophils [#/volume] in Blood by Automated count 5.4 U 1.7-7.6 N [facility] Lymphocytes/100 leukocytes in Blood by Automated count 23.4 % 14- 46 N [facility] Lymphocytes [#/volume] in Blood by Automated count 1.9 U 0.6-4.6 N [facility] Monocytes/100 leukocytes in Blood by Automated count 6.1 % 4-12 N [facility] Monocytes [#/volume] in Blood by Automated count 0.5 U 0.2-1.2 N [facility] Eosinophils/100 leukocytes in Blood by Automated count 2.7 % 0-7 N [facility] Eosinophils [#/volume] in Blood by Automated count 0.2 U 0.0-0.5 N [facility] Basophils/100 leukocytes in Blood by Automated count 0.7 % 0.4-1 .3 N [facility] Basophils [#/volume] in Blood by Automated count 0.1 U 0.0-0.2 N [facility] NUCLEATED RED BLOOD CELL 0 % [facility] NUCLEATED RED BLOOD CELL# [address] [facility] Immature granulocytes [Presence] in Blood by Automated count 0-2 N [facility] Immature granulocytes [#/volume] in Blood by Automated count 0.0 U 0-0.1 N [facility] Manual Differential panel - Blood NO [facility] ID Date Data Source [id number] 08/15/2021 09:56:00 PM EDT [facility] Anticoagulant or Thrombolytic medication : Unknown Special Instructions: Lab may order repe at test if initial test elevatedPhysician If elevated, reflex second test in 4-6 hrs Name Value Range Interpretation Code Description Data Natalie rce(s) Supporting Document(s) Ammonia [Moles/volume] in Plasma 12 umol/L 11.2-31.7 N [facility] ID Date Data Source [id number] 08/15/2021 09:57:00 PM EDT [facility] Anticoagulant or Thrombolytic medication : Unknown Special Instructions: Lab may order repe at test if initial test elevatedPhysician If elevated, reflex second test in 4-6 hrs Name Value Range Interpretation Code Description Data Natalie rce(s) Supporting Document(s) Prothrombin Time (Patient) 10.9 s 9.6-12.3 N [facility] INR 1.0 0.9-1.1 [facility] THE INR IS OPERATIONALLY DEFINED FOR BILLY SH PLASMA FROMPATIENTS STABILIZED ON ORAL ANTICOAGULANTS.ROUTINE ANTICOAGULANT THERAPY 2.0-3.0RECURRENT SYSTEMIC EMBOLISM/HEART VALVE REPLACEMENT 2.5-3.5 aPTT.lupus sensitive (LA screen) 28.8 s 22.7-31.6 [facility] ID Date Data Source [id number] 08/15/2021 09:58:00 PM EDT [facility] Anticoagulant or Thrombolytic medication : Unknown Special Instructions: Lab may order repe at test if initial test elevatedPhysician If elevated, reflex second test in 4-6 hrs Name Value Range Interpretation Code Description Data Natalie rce(s) Supporting Document(s) Lactic w Rfx (if elevated) 2.3 mmol/L 0.5-2.0 Above high normal [facility] Called to YEYO Chappell @ [id number] by Enma Colon . Results read back. ID Date Data Source [id number] [facility] Thromb[facility] medication : Unknown Special Instructions: Lab may order repe at test if initial test elevatedPhysician If elevated, reflex second test in 4-6 hrs Name Value Range Interpretation Code Description Data Natalie rce(s) Supporting Document(s) Urea nitrogen [Mass/volume] in Serum or Plasma 16 mg/dL 9-23 N [facility] Sodium [Moles/volume] in Serum or Plasma 135 mmol/L 132-146 [facility] Potassium [Moles/volume] in Serum or Plasma 4.5 mmol/L 3.5-5.5 [facility] Chloride [Moles/volume] in Serum or Plasma 101 mmol/L 99-109 N [facility] Carbon dioxide, total [Moles/volume] in Serum or Plasma 26 mmol/L 20 -31 N [facility] Anion gap in Serum or Plasma 13 mmol/L 8-16 N [facility] Glucose [Mass/volume] in Serum or Plasma 297 mg/dL 74-106 Above high normal [facility] Creatinine 1.2 mg/dL 0.5-1.1 Above high normal [facility] Glomerular filtration rate/1.73 sq M.pre dicted [Volume Rate/Area] in Serum or Plasma 60 ml/min ABOVE 60 [facility] ital Alanine aminotransferase [Enzymatic acti vity/volume] in Serum or Plasma by With P-5'-P 65 U/L 10-49 Above high normal [facility] Aspartate aminotransferase [Enzymatic ac tivity/volume] in Serum or Plasma by With P-5'-P 37 U/L 0-33 Above high normal [facility] Alkaline phosphatase [Enzymatic activity/volume] in Serum or Plasma 81 U/L 45-129 [facility] Calcium [Mass/volume] in Serum or Plasma 10.3 mg/dL 8.5-10.1 [facility] Repeated by: Enma Colon 08/15/212219. Result Confirmation: 10.0 mg/dL Bilirubin.total [Mass/volume] in Serum or Plasma 0.3 mg/dL 0.3-1.2 [facility] Albumin [Mass/volume] in Serum or Plasma by Bromocresol purple (BCP) dye binding method 3.1 g/dL 3.2-4.8 Below low normal [facility] Protein [Mass/volume] in Serum or Plasma 7.8 g/dL 5.7-8.2 [facility] ID Date Data Source [id number] 08/20/2021 09:31:00 PM EDT [facility] Anticoagulant or Thrombolytic medication : Unknown Special Instructions: Lab may order repe at test if initial test elevatedPhysician If elevated, reflex second test in 4-6 hrs Name Value Range Interpretation Code Description Data Natalie rce(s) Supporting Document(s) Bacteria identified in Blood by Culture [facility] NO GROWTH AFTER 5 DAYS ID Date Data Source [id number] 08/15/2021 10:20:00 PM EDT [facility] Anticoagulant or Thrombolytic medication : Unknown Special Instructions: Lab may order repe at test if initial test elevatedPhysician If elevated, reflex second test in 4-6 hrs Name Value Range Interpretation Code Description Data Natalie rce(s) Supporting Document(s) Lipase [Enzymatic activity/volume] in Serum or Plasma 127 U/L 73-3 93 N [facility] ID Date Data Source [id number] 08/15/2021 10:20:00 PM [facility] Anticoagulant or Thrombolytic medication : Unknown Special Instructions: Lab may order repe at test if initial test elevatedPhysician If elevated, reflex second test in 4-6 hrs Name Value Range Interpretation Code Description Data Natalie rce(s) Supporting Document(s) C reactive protein [Mass/volume] in Serum or Plasma 8.4 mg/L 0.0-5.0 Above high normal [facility] ID Date Data Source [id number] 08/15/2021 10:20:00 PM [facility] Anticoagulant or Thrombolytic medication : Unknown Special Instructions: Lab may order repe at test if initial test elevatedPhysician If elevated, reflex second test in 4-6 hrs Name Value Range Interpretation Code Description Data Natalie rce(s) Supporting Document(s) Troponin I.cardiac [Mass/volume] in Serum or Plasma Less Than 0.015 0.00-0.09 [facility] Less than 0.09 NG/ML Negative0.10 - 0.77 NG/ML High Risk0.78 NG/ML or Greater PositiveThe WHO defined the cutoff (definition for diagnosis of GA)for this method as 0.78 ng/ml. ID Date Data Source [id number] 08/15/2021 10:20:00 PM [facility] Anticoagulant or Thrombolytic medication : Unknown Special Instructions: Lab may order repe at test if initial test elevatedPhysician If elevated, reflex second test in 4-6 hrs Name Value Range Interpretation Code Description Data Natalie rce(s) Supporting Document(s) Thyrotropin [Units/volume] in Serum or Plasma by Detec tion limit <= 0.005 mIU/L 1.75 u[iU]/[facility].35[facility] Date Data Source [id number] 08/15/2021 10:20:00 PM [facility] Anticoagulant or Thrombolytic medication : Unknown Special Instructions: Lab may order repe at test if initial test elevatedPhysician If elevated, reflex second test in 4-6 hrs Name Value Range Interpretation Code Description Data Natalie rce(s) Supporting Document(s) Natriuretic peptide.B prohormone N-Terminal [Mass/volu me] in Serum or Plasma 119.00 pg/mL 0.00-175 N [facility] l ID Date Data Source [id number] 08/16/2021 01:03:00 AM EDT [facility] Normal result is "BinaxNow Covid-19 Ag n egative"BinaxNow Covid-19 Ag is a rapid lateral flowimmunochromatographic immunoassayThis test detects both viable(live) and non-viable, SARS-COVand SARS-COV-2.Positive test results do not differentiate between SARS-COVand VFHP-EHA-4Wsyaggws results , from patients with symptom onset beyondseven days, should be treated as presumptive andconfirmation with a molecular assay, if necessary, forpatient managementIf the differentiation of specific SARS viruses and strainsis needed, additional testing, in consultation with stateand local public health departments, is required.SARS-CoV-2 Ag Resp Ql IA.rapid Name Value Range Interpretation Code Description Data Natalie rce(s) Supporting Document(s) ID Date Data Source [id number] 08/15/2021 09:21:00 PM EDT [facility] Name Value Range Interpretation Code Description Data Natalie rce(s) Supporting Document(s) SARS-CoV-2 (COVID-19) Ag [Presence] in R espiratory specimen by Rapid immunoassay BinaxNow Covid -19 Ag Negative [facility] This lab was ordered by [facility] and reported by [facility]. ID Date Data Source [id number] 06/22/2021 07:28:00 AM EDT [facility] ([facility] ) Name Value Range Interpretation Code Description Data Natalie rce(s) Supporting Document(s) PDFReport Laboratory test result [facility] ([facility], ) FVC-Pre 3.11 L [facility] ([facility], ) FVC-Pred 4.61 L [facility] ([facility], ) FVC-LLN 3.63 L [facility] ([facility]) FVC-%Pred-Pre 67 L [facility] ([facility], ) Fev1-Pred 3.37 L [facility] ([facility], ) Fev1-Pre 2.41 L [facility] ([facility], ) Fev1-%Pred-Pre 71 L [facility] ([facility], ) Fev6-Pred 4.35 L [facility] ([facility], ) Fev1-LLN 2.55 L [facility] ([facility], ) Fev6-%Pred-Pre 71 L [facility] ([facility], ) Fev6-Pre 3.11 L [facility] ([facility], ) Fev6-LLN 3.40 L [facility] ([facility]) Ydx8iry-Zwfa 73 % [facility] ([facility], ) Kxr5hlp-Eca 78 % [facility] ([facility], ) Zsc7xou-%Pred-Pre 105 % [facility] ([facility]) Gwb7bdx-ROR 63 % [facility] ([facility]) Ugz2xrt-Puuv 94 % [facility] ([facility], ) Lux3lok-Srw 100 % [facility] ([facility]) Eqt6atv-%Pred-Pre 105 % [facility] ([facility]) FEFMax-Pred 8.50 L/E/sec [facility] ([facility], ) FEFMax-Pre 6.47 L/E/sec [facility] ([facility], ) FEFMax-%Pred-Pre 76 L/E/sec [facility] ([facility]) Crv0125-Hhja 2.52 L/E/sec [facility] ([facility]) FEFMax-LLN 6.07 L/E/sec [facility] ([facility]) Coj8611-%Pred-Pre 83 L/E/sec [facility] ([facility]) Hcr2854-Etw 2.10 L/E/sec [facility] ([facility]) Tdh9577-REZ 0.85 L/E/sec [facility] ([facility]) ExpTime-Pre 5.41 sec [facility] ([facility]) Pdc1ouc3-Ozfk 77 % [facility] ([facility]) Wrv1wml8-Urm 78 % [facility] ([facility]) Gvu0yqm9-ICL 68 % [facility] ([facility]) Hrn5zsl3-%Pred-Pre 100 % [facility] ([facility]) ID Date Data Source [id number] 06/09/2021 03:01:00 PM EDT [facility] ([facility] Name Value Range Interpretation Code Description Data Natalie rce(s) Supporting Document(s) Cholesterol 223 [facility] ([facility]) Triglycerides 312 [facility] ([facility] HDL 38 [facility] Cholesterol in LDL [Mass/volume] in Serum or Plasma by calculation 12 3 [facility] ([facility]) Chol/HDL Ratio Laboratory test result [facility] ([facility]) ID Date Data Source [id number] 06/09/2021 03:01:00 PM EDT [facility] ([facility]) Name Value Range Interpretation Code Description Data Natalie rce(s) Supporting Document(s) White Blood Count 7.1 [facility] ([facility]) Red Blood Count 4.43 [facility] ([facility]) Hematocrit 38.6 [facility] ([facility]) Hemoglobin 13.2 [facility] ([facility]) Platelets 202 [facility] ID Date Data Source [id number] 06/09/2021 03:01:00 PM EDT [facility] ([facility]) Name Value Range Interpretation Code Description Data Natalie rce(s) Supporting Document(s) Aspartate aminotransferase [Enzymatic activity/volume] in Serum or Plasma 28 [facility]) Alanine aminotransferase [Enzymatic activity/volume] in Serum or Pl asma 47 [facility] ([facility]) Alk Phos 85 [facility] [place] Albumin 3.5 [facility] [place] Total Bilirubin 0.3 [facility] A/G Ratio 0.83 [facility] [place] Total Protein 7.7 [facility] ID Date Data Source [id number] 06/09/2021 03:01:00 PM EDT [facility] Name Value Range Interpretation Code Description Data Natalie rce(s) Supporting Document(s) Glucose 296 [facility] [place] Blood Urea Nitrogen 32 [facility] [place] Creatinine 1.3 [facility]) Sodium 137 [facility] [place] Potassium 4.2 [facility] [place] Chloride 99 [facility] [place] Carbon Dioxide 27 [facility] [place] Glomerular filtration rate/1.73 sq M.pre dicted [Volume Rate/Area] in Serum or Plasma by Creatinine-based formula (MDRD) 54 [facility]) Calcium 10.7 [facility] ID Date Data Source [id number] 06/09/2021 09:15:00 AM EDT [facility] ([facility]) Name Value Range Interpretation Code Description Data Natalie rce(s) Supporting Document(s) Leukocytes [#/volume] in Blood by Automated count 7.1 x10*3/UL 4.1-10 .9 [facility] ([facility]) Hemoglobin [Mass/volume] in Blood 13.2 g/dL 12.0-18.0 [facility] ([facility]) Erythrocytes [#/volume] in Blood by Automated count 4.43 x10*6/UL 4.2 0-6.30 [facility] ([facility]) MCV 87.2 fL 80.0-97.0 [facility] Hematocrit [Volume Fraction] of Blood by Automated count 38.6 % 3 7.0-51.0 [facility] ([facility]) MCH 29.8 pg 26.0-32.0 [facility] [facility] Erythrocyte distribution width [Ratio] by Automated count 12.8 % 11.6-13.7 [facility] ([facility]) MCHC 34.1 g/dL 31.0-38.0 [facility] [facility]) MPV 8.1 FL 7.8-11.0 [facility] ([facility]) Platelets [#/volume] in Blood by Automated count 202 x10*3/UL 140-440 [facility] ([facility]) Mid % 6.4 % 1.7-9.3 [facility] [facility] Lymph % 22.3 % 10.0-58.5 [facility] [facility] Neut % 71.3 % 37.0-92.0 [facility] ([facility]) Mid # 0.4 x10*3/UL 0.1-0.6 [facility] ([facility]) Lymph # 1.6 x10*3/UL 0.6-4.1 [facility] ([facility]) Neut # 5.1 x10*3/UL 2.0-7.8 [facility] ([facility]) ID Date Data Source [id number] 06/09/2021 09:15:00 AM EDT [facility] ([facility]) Name Value Range Interpretation Code Description Data Natalie rce(s) Supporting Document(s) Triglyceride [Mass/volume] in Serum or Plasma 312 mg/dL 30-150 [facility] ([facility]) Cholesterol [Mass/volume] in Serum or Plasma 223 mg/dL 131-200 [facility] ([facility]) Cholesterol in HDL [Mass/volume] in Serum or Plasma 38 mg/dL 35-60 [facility] ([facility]) Cholesterol in LDL [Mass/volume] in Serum or Plasma by calcu lation 123 CALC 50-159 [facility] ([facility]) ID Date Data Source [id number] 06/09/2021 09:15:00 AM EDT [facility] ([facility]) Name Value Range Interpretation Code Description Data Natalie rce(s) Supporting Document(s) Glucose [Mass/volume] in Serum or Plasma 296 mg/dL 74-99 [facility] ([facility]) 100-125 mg/dL PRE-DIABETES/FASTING >126 mg/dL DIABETES/FASTING Urea nitrogen [Mass/volume] in Serum or Plasma 32 mg/dL 7-18 [facility] ([facility]) NOTE: BUN,CALCIUM VERIFIED Creatinine 1.3 mg/dL 0.6-1.3 [facility] ([facility]) Potassium [Moles/volume] in Serum or Plasma 4.2 meq/L 3.5-5.1 [facility] ([facility]) Sodium [Moles/volume] in Serum or Plasma 137 meq/L 136-145 [facility] ([facility]) Chloride [Moles/volume] in Serum or Plasma 99 meq/L 98-107 [facility] ([facility]) Carbon dioxide, total [Moles/volume] in Serum or Plasma 27 meq/L 21 -32 [facility] ([facility]) Calcium [Mass/volume] in Serum or Plasma 10.7 mg/dL 8.5-10.1 [facility] ([facility]) Total Bilirubin 0.3 mg/dL 0.2-1.0 [facility] ([facility]) Alkaline phosphatase isoenzyme [Units/volume] in Serum or Pl asma 85 mg/dL 46-116 [facility] ([facility]) Albumin [Mass/volume] in Serum or Plasma 3.5 g/dL 3.4-5.0 [facility] ([facility]) Aspartate aminotransferase [Enzymatic activity/volume] in Serum or Plasma 28 U/L 15-37 [facility] ([facility] ) Alanine aminotransferase [Enzymatic activity/volume] in Seru m or Plasma 47 U/L 12-78 [facility] ([facility]) Proteinase 3 Ab [Units/volume] in Serum 7.7 g/dL 6.4-8.2 [facility] ([facility]) A/G Ratio 0.83 CALC 1.00-1.90 [facility] Glomerular filtration rate/1.73 sq M pre dicted among blacks [Volume Rate/Area] in Serum or Plasma by Creatinine-based formula (MDRD) Laboratory test result [facility] ([facility]) <content>CHRONIC KIDNEY DISEASE STAGING PER NKF</content>
<content></content>
<content>STAGE I & II GFR >= 60 NORMAL TO MILDLY DECREASED</content>
<content>STAGE III GFR 30-59 MODERATELY DECREASED</content>
<content>STAGE IV GFR 15-29 SEVERELY DECREASED</content>
<content>STAGE V GFR <15 VERY LITTLE GFR LEFT</content>
<content>ESRD GFR <15 ON HEAVY D[employer]Y [employer]ESS OPERATOR</content>
<content></content> Glomerular filtration rate/1.73 sq M pre dicted among non-blacks [Volume Rate/Area] in Serum or Plasma by Creatinine-based formula (MDRD) 54 mL/min [facility]) ID Date Data Source [id number] 06/09/2021 09:15:00 AM EDT [facility]) Name Value Range Interpretation Code Description Data Natalie rce(s) Supporting Document(s) Hemoglobin A1c/Hemoglobin.total in Blood 10.6 % [facility] ([facility]) Lab Result Notes: Pre-Diabetes 5.7 - 6.4 % Diabetes = or > 6.5% Glucose mean value [Mass/volume] in Blood Estimated fr om glycated hemoglobin 258 mg/dL 60-110 [facility] ) ID Date Data Source [id number] 06/09/2021 09:15:00 AM EDT [facility]) Name Value Range Interpretation Code Description Data Natalie rce(s) Supporting Document(s) Hemoglobin A1c/Hemoglobin.total in Blood Laboratory test result [facility] ([facility]) ID Date Data Source [id number] 04/22/2021 03:38:00 PM EDT [facility]) Name Value Range Interpretation Code Description Data Natalie rce(s) Supporting Document(s) Blood Culture Laboratory test result [facility] ([facility]) No growth after 72 hours . All specimens observed for 5 days. Results final at that time. No growth after 48 hours . All specimens observed for 5 days. Results final at that time. No growth after 24 hours . All specimens observed for 5 days. Results final at that time. NO GROWTH AFTER 5 DAYS ID Date Data Source [id number] 04/22/2021 03:27:00 PM EDT [facility] ([facility]) Name Value Range Interpretation Code Description Data Natalie rce(s) Supporting Document(s) Respiratory Panel Laboratory test result [facility] ([facility]) This respiratory PCR panel detects Influ adair A H1, H3 and 2009 H1 viruses, [...] be reliably differentiated. ORGANISM 1: HUMAN RHINOVIRUS/ENTEROVIRUS ID Date Data Source [id number] 04/22/2021 03:27:00 PM EDT [facility] Name Value Range Interpretation Code Description Data Natalie rce(s) Supporting Document(s) SARS-CoV-2 (COVID 19) NEGATIVE - SARS-CoV-2 (COVID19) [facility] This lab was ordered by [facility] a nd reported by [facility]. ID Date Data Source [id number] 04/22/2021 03:26:00 PM EDT [facility] ([facility]) Name Value Range Interpretation Code Description Data Natalie rce(s) Supporting Document(s) White Blood Count 9.5 10 4.0-10.0 [facility] ([facility]) Hemoglobin 12.7 g/dL 13.5-17.5 [facility] ([facility]) Red Blood Count 4.24 10 4.30-6.10 [facility] ([facility]) Mean Corpuscular Volume 89.2 fl 80.0-96.0 [facility] ([facility]) Hematocrit 37.8 % 42.0-52.0 [facility] Mean Corpuscular HGB Conc 33.6 g/dL 32.0-36.5 [facility] ([facility]) Mean Corpuscular Hemoglobin 30.0 pg 27.0-33.0 [facility] ([facility]) Platelet Count, Automated 200 10 150-450 [facility] ([facility]) Red Cell Distribution Width 12.9 % 11.5-14.5 [facility] ([facility]) Neutrophils % 73.8 % 36.0-66.0 [facility] ([facility]) Lymph % 17.3 % 24.0-44.0 [facility] Eos % 2.0 % 0.0-3.0 [facility]) Brooke % 5.9 % 2.0-8.0 [facility] Immature Granulocyte % 0.4 % 0-3.0 [facility] ([facility]) Baso % 0.6 % 0.0-1.0 [facility] Neutrophils # 7.0 10 1.5-8.5 [facility] ([facility]) Nucleated Red Blood Cell % 0.0 % 0-0 [facility] ([facility]) Lymph # 1.7 10 1.5-5.0 [facility] Brooke # 0.6 10 0.0-0.8 [facility] Eos # 0.2 10 0.0-0.5 [facility] Baso # 0.1 10 0.0-0.2 [facility] ID Date Data Source [id number] 04/22/2021 03:26:00 PM EDT [facility] ([facility]) Name Value Range Interpretation Code Description Data Natalie rce(s) Supporting Document(s) CPK Creatine Phosphokinase 78 U/L 39-308 [facility] ([facility]) MB/CK Relative Index 1.54 [facility]) <content>DIAGNOSIS CRITERIA</content>
<content>MMB ng/ml Relative Index (RI)</content>
<content>NON-AMI < or = 5 N/A</content>
<content>GONZALEZ ZONE > 5 < or = 4</content>
<content>AMI > 5 > 4</content>
<content></content> CK-MB Value Mass 1.2 ng/mL [facility] Troponin I Laboratory test result [facility] ([facility]) <content>Troponin I Reference Interval f or Siemens [place] LOCI:</content>
<content></content>
<content>99th Percentile= 0.00-0.045 ng/ml</content>
<content></content>
<content>Risk Stratification:</content>
<content><= 0.10 ng/ml Decreased Risk for Adverse Clinical</content>
<content>Events.</content>
<content>0.10-1.50 ng/ml Increased Risk for Adverse Clinical</content>
<content>Events. Evaluation of additional</content>
<content>criterion and/or repeat testing in 2-6</content>
<content>hours is suggested to rule out myocardial</content>
<content>damage.</content>
<content>>= 1.50 ng/ml Indicative of Myocardial Injury.</content>
<content></content> ID Date Data Source [id number] 04/22/2021 03:26:00 PM EDT [facility] ([facility]) Name Value Range Interpretation Code Description Data Natalie rce(s) Supporting Document(s) Blood Urea Nitrogen 19 mg/dL 7-18 [facility] ([facility]) Glucose, Fasting 234 mg/dL 70-100 [facility] ([facility]) Glomerular Filtration Rate Laboratory test result [facility] ([facility]) <content>Units are mL/min/1.73 m2</content>
<content></content>
<content>Chronic Kidney Disease Staging per NKF:</content>
<content></content>
<content>Stage I & II GFR >=60 Normal to Mildly Decreased</content>
<content>Stage III GFR 30- 59 Moderately Decreased</content>
<content>Stage IV GFR 15-29 Severely Decreased</content>
<content>Stage V GFR <15 Very Little GFR Left</content>
<content>ESRD GFR <15 on HEAVY DUTY PRESS OPERATOR</content>
<content></content> Creatinine For GFR 1.15 mg/dL 0.70-1.30 [facility] ([facility]) Potassium Serum 4.0 meq/L 3.5-5.1 [facility] ([facility]) Sodium Level 136 meq/L 136-145 [facility] ([facility]) Chloride Level 100 meq/L 98-107 [facility] ([facility]) Carbon Dioxide Level 26 meq/L 21-32 [facility] ([facility]) Anion Gap 10 meq/L 8-16 [facility] ([facility]) Calcium Level 9.6 mg/dL 8.8-10.2 [facility] ([facility]) ID Date Data Source [id number] 04/22/2021 03:26:00 PM EDT [facility] ([facility]) Name Value Range Interpretation Code Description Data Natalie rce(s) Supporting Document(s) Lactate [Mass/volume] in Serum or Plasma 2.1 mmol/L 0.4-2.0 Above upper panic limits [facility] ([facility]) Y/N query for Sepsis Lactate Rule: Y ID Date Data Source [id number] 04/22/2021 03:26:00 PM EDT [facility] ([facility]) Name Value Range Interpretation Code Description Data Natalie rce(s) Supporting Document(s) Ast/Sgot 26 U/L 7-37 [facility] ([facility]) Alkaline Phosphatase 91 U/L 45-117 [facility] ([facility]) Alt/SGPT 46 U/L 12-78 [facility] ([facility]) Bilirubin,Direct 0.2 mg/dL 0.0-0.2 [facility] ([facility]) Bilirubin,Total 0.5 mg/dL 0.2-1.0 [facility] ([facility]) Albumin 3.2 GM/DL 3.2-5.2 [facility] ([facility]) Total Protein 7.7 GM/DL 6.4-8.2 [facility] ([facility]) Albumin/Globulin Ratio 0.7 [facility] ([facility]) ID Date Data Source [id number] 04/22/2021 12:39:00 PM EDT [facility] ED Physician Documentation NAME: MAC GROSS : 1950 AGE: 71 MR#: [id number] SERVICE DATE: 04/22/[address]: Meliton Singh MD PRIMARY CARE DR: Kalpesh Pollack M.D. ROOM#: [facility] (Adult, General) General Chief Complaint: Respiratory Pulmonary Stated Complaint: COUGH,SOB Time Seen by Provider: 04/22/21 12:38 History of Present Illness Narrative: Went in to see the patient. Patient left without being seen. Allergies/Home Meds Allergies Allergy/AdvReac Type Severity Reaction Status Date / Time ciprofloxacin Allergy Severe Rash Verified 04/22/21 11:16 Penicillins A llergy Intermediate Hives Verified 04/22/21 11:16 Sulfa (Sulfonamide Allergy Intermediate Hives Verified 04/22/21 11:16 Antibiotics) levofloxacin [From Levaquin] AdvReac Mild Confusion Verified 04/22/21 11:16 Home Medications Medication Instructions Recorded Confirmed Last Taken Type Bystolic 5 mg PO DAILY 05/27/20 09/22/20 09/22/20 History irbesartan 150 mg PO DAILY 05/27/20 09/22/20 09/22/20 History levothyroxine 125 mcg PO DAILY 05/27/20 09/22/20 09/22/20 History pantoprazole [Protonix] 40 mg PO DAILY 05/27/20 09/22/20 09/22/20 History spironolactone 25 mg PO DAILY 05/27/20 09/22/20 09/22/20 History torsemide 20 mg PO DAILY 05/27/20 09/22/20 09/22/20 History albuterol sulfate 2 puffs IH QID PRN #18 gm 06/01/20 09/22/20 09/22/20 Rx budesonide-formoterol [Symbicort] 2 puffs IH BID #10.2 gm 06/01/20 09/22/20 09/22/20 Rx finasteride 5 mg PO DAILY #30 tab 06/01/20 09/22/20 09/22/20 Rx tamsulosin 0.4 mg PO DAILY #30 cap 06/01/20 09/22/20 09/22/20 Rx Toujeo Max U-300 SoloStar 100 unit SUBCUT HS 06/06/20 09/22/20 09/21/20 History insulin lispro [Humalog KwikPen 10 unit SUBCUT TIDWM 06/08/20 09/22/20 09/22/20 History Insulin] insulin lispro [Humalog KwikPen See Rx Instructions .ROUTE .COMPLEX 06/08/20 09/22/20 09/22/20 History Insulin] nitrofurantoin macrocrystal 100 mg PO BID #14 cap 06/08/20 09/22/20 09/22/20 Rx ciprofloxacin HCl [Cipro] 500 mg PO Q12HR #14 tab 07/20/20 09/22/20 09/22/20 Rx metronidazole [Flagyl] 500 mg PO Q8H 7 Days #21 tab 07/20/20 09/22/20 09/22/20 Rx PMH (from Triage) Patient Medical History PMH Reviewed/Updated as Needed: No PMH/PSH from Triage: Medical History (Updated 06/05/20 @ 16:38 by Mikayla Hughes) COPD (chronic obstructive pulmonary disease) (Medical) J44.9 Diabetes mellitus (Medical) E11.9 GERD (gastroesophageal reflux disease) (Medical) K21.9 Hypothyroidism (Medical) E03.9 Surgical History (Updated 09/22/20 @ 19:17 by Barb Pantoja) Hx of hernia repair (Surgical) Z98.890, Z87.19 Hx of partial thyroidectomy (Surgical) Z90.09 Hx Drug Resistant Infections Hx MRSA: (Methicillin-resistant Staphylococcus aureus): No Hx VRE (Vancomycin-resistant enterococci): No Hx C.Diff: No Hx CRKP: No Hx Other Resistant Infection?: No Isolation: Standard precautions Hx Recent Travel Out of the country within 10 days (where): No Hx Fever with a rash?: No Nurse screening for coronavirus: Recent Travel outside the No country (where) Social History Are you in a relationship with/Does anyone hit you, yell/swear at you, steal from you?: No Substance Use Smoking Status: Former smoker Tobacco Use Hx Chewing Tobacco Use: No Vaccination History Hx/Date of Tetanus, Diphtheria Vaccination: Yes Hx/Date of Influenza Vaccination: Yes Hx/Date of Pneumococcal Vaccination: Yes PFSH Medical History COPD (chronic obstructive pulmonary disease) Diabetes mellitus GERD (gastroesophageal reflux disease) Hypothyroidism Surgical History (Updated 09/22/20 @ 19:17 by Barb Pantoja) Hx of hernia repair Hx of partial thyroidectomy Social History Does the Patient have a Healthcare Proxy: Yes Does Patient have a DNR?: No Does Patient have a Living Will?: No Does the Patient have a MOLST?: No Advance Directives on File or in chart?: No Hx Recent Travel (where): No Smoking Status: Former smoker Physical Exam Vital Signs Vital Signs: Vital Signs 04/22/21 11:12 Temperature 97.7 F Pulse Rate 60 Respiratory Rate 16 Blood Pressure 163/77 O2 Sat by Pulse Oximetry 97 Discharge Plan Admission/Discharge Dx ED Provider: Meliton Singh ED Status: Physician Time Seen by Provider: 04/22/21 12:38 Triaged At: 04/22/21 11:04 Discharge Detail Disposition: Left Without Being Seen (ER) Med Rec New Prescriptions: No Action torsemide 20 mg Tablet 20 mg PO DAILY RF: 0 pantoprazole [Protonix] 20 mg Tablet,Delayed Release (Dr/Ec) 40 mg PO DAILY RF: 0 irbesartan 150 mg Tablet 150 mg PO DAILY RF: 0 Bystolic 5 mg Tablet 5 mg PO DAILY RF: 0 spironolactone 25 mg tablet 25 mg PO DAILY RF: 0 levothyroxine 125 mcg tablet 125 mcg PO DAILY RF: 0 tamsulosin 0.4 mg Capsule 0.4 mg PO DAILY Qty: 30 RF: 0 finasteride 5 mg Tablet 5 mg PO DAILY Qty: 30 RF: 0 budesonide- formoterol [Symbicort] 80-4.5 mcg/actuation HFA aerosol inhaler 2 puffs IH BID Qty: 10.2 RF: 0 albuterol sulfate 90 mcg/actuation HFA aerosol inhaler 2 puffs IH QID PRN (Reason: shortness of breath or wheezing) Qty: 18 RF: 0 Toujeo Max U-300 SoloStar 300 unit/mL (3 mL) insulin pen 100 unit SUBCUT HS RF: 0 nitrofurantoin macrocrystal 100 mg capsule 100 mg PO BID Qty: 14 RF: 0 insulin lispro [Humalog KwikPen Insulin] 100 unit/mL insulin pen 10 unit SUBCUT TIDWM RF: 0 insulin lispro [Humalog KwikPen Insulin] 100 unit/mL Insulin Pen See Rx Instructions .ROUTE .COMPLEX RF: 0 ciprofloxacin HCl [Cipro] 500 mg tablet 500 mg PO Q12HR Qty: 14 RF: 0 metronidazole [Flagyl] 500 mg tablet 500 mg PO Q8H 7 Days Qty: 21 RF: 0 Interventions Interventions: ED Respiratory/Pulmonary Last Done: 04/22/21 11:15 Report Signers: <Electronically signed by Meliton Singh > Meliton Singh 04/22/21 1240 Meliton Singh SIGNATURE DA Report Cosigners: D: RICARDO 04/22/21 1239 T: RICARDO 04/22/21 1239 CC: Kalpesh Pollack M.D. Name Value Range Interpretation Code Description Data Naatlie rce(s) Supporting Document(s) ID Date Data Source [id number] 04/22/2021 12:27:00 PM EDT [facility] ([facility]) Name Value Range Interpretation Code Description Data Natalie rce(s) Supporting Document(s) Troponin Laboratory test result [facility] ([facility]) ID Date Data Source [id number] 04/22/2021 12:27:00 PM EDT [facility] ([facility]) Name Value Range Interpretation Code Description Data Natalie rce(s) Supporting Document(s) Carbon dioxide, total [Moles/volume] in Serum or Plasma 26 [facility] ([facility]) Sodium 136 [facility] Calcium [Mass/volume] in Serum or Plasma 9.6 [facility] ([facility]) Chloride [Moles/volume] in Serum or Plasma 100 [facility] ([facility]) Potassium [Moles/volume] in Serum or Plasma 4.0 [facility] ([facility]) Glucose 234 70-100 [facility] ([facility]) Blood Urea Nitrogen 19 5-21 [facility] ([facility]) Glomerular filtration rate/1.73 sq M.pre dicted [Volume Rate/Area] in Serum or Plasma by Creatinine-based formula (MDRD) Laboratory test result [facility] ([facility]) Creatinine 1.15 0.6-1.5 [facility] ([facility]) ID Date Data Source [id number] 04/22/2021 12:27:00 PM EDT [facility] ([facility]) Name Value Range Interpretation Code Description Data Natalie rce(s) Supporting Document(s) Alkaline phosphatase [Enzymatic activity/volume] in Serum or Plasma 9 1 [facility] ([facility]) Aspartate aminotransferase [Enzymatic activity/volume] in Serum or Plasma 26 [facility] ([facility]) Bilirubin.total [Mass/volume] in Serum or Plasma 0.5 [facility] ([facility]) Alanine aminotransferase [Enzymatic activity/volume] in Serum or Pl asma 46 [facility] ([facility]) Bilirubin.direct [Mass/volume] in Serum or Plasma 0.2 [facility] ([facility]) Protein [Mass/volume] in Serum or Plasma 7.7 [facility] ([facility]) Cholesterol [Mass/volume] in Serum or Plasma Laboratory test result [facility] ([facility]) Albumin [Mass/volume] in Serum or Plasma 3.2 [facility] ([facility]) ID Date Data Source [id number] 04/22/2021 12:27:00 PM EDT [facility] ([facility]) Name Value Range Interpretation Code Description Data Natalie rce(s) Supporting Document(s) Creatine kinase [Enzymatic activity/volume] in Serum or Plasma 78 41-270 [facility] ([facility]) CPK-MB 1.2 [facility] MB/CK Relative 1.2 [facility] ([facility]) ID Date Data Source [id number] 04/22/2021 12:27:00 PM EDT [facility] ([facility]) Name Value Range Interpretation Code Description Data Natalie rce(s) Supporting Document(s) White Blood Count 9.5 4.3-10.9 [facility] ([facility]) Platelets 200 130-400 [facility] Red Blood Count 4.24 4.70-6.20 [facility] ([facility]) Hemoglobin 12.7 13.0-17.0 [facility] ([facility]) Hematocrit 37.8 39.0-50.0 [facility] ([facility]) ID Date Data Source [id number] 04/12/2021 02:00:00 PM EDT [facility] ([facility]) Name Value Range Interpretation Code Description Data Natalie rce(s) Supporting Document(s) Bedside Glucose 262 mg/dL 83-110 [facility] ([facility]) ID Date Data Source [id number] 04/12/2021 12:44:00 PM EDT [facility] ([facility]) Name Value Range Interpretation Code Description Data Natalie rce(s) Supporting Document(s) Bedside Glucose 283 mg/dL 83-110 [facility] ([facility]) ID Date Data Source [id number] 03/17/2021 02:09:00 PM EDT [facility] Name Value Range Interpretation Code Description Data Natalie rce(s) Supporting Document(s) SARS coronavirus 2 RNA [Presence] in Res piratory specimen by ROMELIA with probe detection NEGATIVE [facility] This lab was ordered by [facility] a nd reported by [facility]. ID Date Data Source [id number] 03/17/2021 10:01:00 AM EDT [facility] ([facility]) Name Value Range Interpretation Code Description Data Natalie rce(s) Supporting Document(s) Blood Type Laboratory test result [facility] ([facility]) AB Screen (Indirect Kevin)Vis Laboratory test result [facility] ([facility]) ID Date Data Source [id number] 03/17/2021 10:01:00 AM EDT [facility] ([facility]) Name Value Range Interpretation Code Description Data Natalie rce(s) Supporting Document(s) Lactate [Mass/volume] in Serum or Plasma 2.0 mmol/L 0.4-2.0 [facility] ([facility]) Y/N query for Sepsis Lactate Rule: Y ID Date Data Source [id number] 03/17/2021 10:01:00 AM EDT [facility] ([facility]) Name Value Range Interpretation Code Description Data Natalie rce(s) Supporting Document(s) White Blood Count 9.6 10 4.0-10.0 [facility] ([facility]) Red Blood Count 4.30 10 4.30-6.10 [facility] ([facility]) Hemoglobin 13.2 g/dL 13.5-17.5 [facility] ([facility]) Hematocrit 39.0 % 42.0-52.0 [facility] ([facility]) Mean Corpuscular HGB Conc 33.8 g/dL 32.0-36.5 [facility] ([facility]) Mean Corpuscular Hemoglobin 30.7 pg 27.0-33.0 [facility] ([facility]) Mean Corpuscular Volume 90.7 fl 80.0-96.0 [facility] ([facility]) Platelet Count, Automated 204 10 150-450 [facility] ([facility]) Red Cell Distribution Width 13.3 % 11.5-14.5 [facility] ([facility]) Lymph % 23.9 % 24.0-44.0 [facility] Neutrophils % 66.7 % 36.0-66.0 [facility] ([facility]) Brooke % 5.9 % 2.0-8.0 [facility]) Baso % 0.5 % 0.0-1.0 [facility] Eos % 2.6 % 0.0-3.0 [facility] Immature Granulocyte % 0.4 % 0-3.0 [facility] ([facility]) Nucleated Red Blood Cell % 0.0 % 0-0 [facility] ([facility]) Brooke # 0.6 10 0.0-0.8 [facility] Neutrophils # 6.4 10 1.5-8.5 [facility] ([facility]) Lymph # 2.3 10 1.5-5.0 [facility] Eos # 0.3 10 0.0-0.5 [facility]) Baso # 0.1 10 0.0-0.2 [facility] ID Date Data Source [id number] 03/17/2021 10:01:00 AM EDT [facility] ([facility]) Name Value Range Interpretation Code Description Data Natalie rce(s) Supporting Document(s) CPK Creatine Phosphokinase 78 U/L 39-308 [facility] ([facility]) CK-MB Value Mass Laboratory test result [facility] ([facility]) Troponin I Laboratory test result [facility] ([facility]) <content>Troponin I Reference Interval f or Siemens [place] LOCI:</content>
<content></content>
<content>99th Percentile= 0.00-0.045 ng/ml</content>
<content></content>
<content>Risk Stratification:</content>
<content><= 0.10 ng/ml Decreased Risk for Adverse Clinical</content>
<content>Events.</content>
<content>0.10-1.50 ng/ml Increased Risk for Adverse Clinical</content>
<content>Events. Evaluation of additional</content>
<content>criterion and/or repeat testing in 2-6</content>
<content>hours is suggested to rule out myocardial</content>
<content>damage.</content>
<content>>= 1.50 ng/ml Indicative of Myocardial Injury.</content>
<content></content> MB/CK Relative Index 1.28 [facility] ([facility]) <content>DIAGNOSIS CRITERIA</content>
<content>MMB ng/ml Relative Index (RI)</content>
<content>NON-AMI < or = 5 N/A</content>
<content>GONZALEZ ZONE > 5 < or = 4</content>
<content>AMI > 5 > 4</content>
<content></content> ID Date Data Source [id number] 03/17/2021 10:01:00 AM EDT [facility] ([facility]) Name Value Range Interpretation Code Description Data Natalie rce(s) Supporting Document(s) Ast/Sgot 36 U/L 7-37 [facility] ([facility]) Alkaline Phosphatase 87 U/L 45-117 [facility] ([facility]) Alt/SGPT 42 U/L 12-78 [facility] ([facility]) Bilirubin,Direct 0.1 mg/dL 0.0-0.2 [facility] ([facility]) Bilirubin,Total 0.3 mg/dL 0.2-1.0 [facility] ([facility]) Total Protein 7.5 GM/DL 6.4-8.2 [facility] ([facility]) Albumin/Globulin Ratio 0.7 [facility] ([facility]) Albumin 3.2 GM/DL 3.2-5.2 [facility] ([facility]) ID Date Data Source [id number] 03/17/2021 10:01:00 AM EDT [facility] ([facility]) Name Value Range Interpretation Code Description Data Natalie rce(s) Supporting Document(s) Blood Urea Nitrogen 24 mg/dL 7-18 [facility] ([facility]) Glucose, Fasting 271 mg/dL 70-100 [facility] ([facility]) Creatinine For GFR 1.43 mg/dL 0.70-1.30 [facility] ([facility]) Glomerular Filtration Rate 51.8 [facility] ([facility]) <content>Units are mL/min/1.73 m2</content>
<content></content>
<content>Chronic Kidney Disease Staging per NKF:</content>
<content></content>
<content>Stage I & II GFR >=60 Normal to Mildly Decreased</content>
<content>Stage III GFR 30- 59 Moderately Decreased</content>
<content>Stage IV GFR 15-29 Severely Decreased</content>
<content>Stage V GFR <15 Very Little GFR Left</content>
<content>ESRD GFR <15 on HEAVY DUTY PRESS OPERATOR</content>
<content></content> Sodium Level 135 meq/L 136-145 [facility] ([facility]) Chloride Level 100 meq/L 98-107 [facility] ([facility]) Potassium Serum 3.8 meq/L 3.5-5.1 [facility] ([facility]) Anion Gap 7 meq/L 8-16 [facility] [facility] Calcium Level 9.6 mg/dL 8.8-10.2 [facility] ([facility]) Carbon Dioxide Level 28 meq/L 21-32 [facility] ([facility]) ID Date Data Source [id number] 03/17/2021 10:01:00 AM EDT [facility] ([facility]) Name Value Range Interpretation Code Description Data Natalie rce(s) Supporting Document(s) Lipoprotein lipase [Enzymatic activity/volume] in Serum or P lasma 140 U/L 73-393 [facility] ([facility]) ID Date Data Source [id number] 02/23/2021 01:32:00 PM EDT [facility] ([facility]) Name Value Range Interpretation Code Description Data Natalie rce(s) Supporting Document(s) Lyme Disease IgG/IgM Antibodie Laboratory test result 0.00-0.90 [facility] ([facility]) <content>Negative <0.91</content >
<content>Equivocal 0.91 - 1.09</content>
<content>Positive >1.09</content>
<content></content> Lyme Disease IgM Ab Quantitati Laboratory test result 0.00-0.79 [facility] ([facility]) <content>Negative <0.80</content >
<content>Equivocal 0.80 - 1.19</content>
<content>Positive >1.19</content>
<content>.</content>
<content>IgM levels may peak at 3-6 weeks post infection, then</content>
<content>gradually decline.</content>
<content>Performed at: RN - [facility]</content>
<content>[address] [place] [id number]</content>
<content>Hoop Punch Operator Helper: Beverly Smith MD, Phone: [phone]</content>
<content></content> ID Date Data Source [id number] 02/23/2021 01:32:00 PM EDT [facility] Name Value Range Interpretation Code Description Data Natalie rce(s) Supporting Document(s) Urine Color Laboratory test result [facility] T ([facility]) Urine Appearance Laboratory test result [facility] ([facility]) Urine PH 6.0 units 5.0-9.0 [facility] Specific gravity of Urine 1.020 1.005-1.030 [facility] ([facility]) Urine Leukocytes Laboratory test result [facility] ([facility]) Urine Blood Laboratory test result [facility] T ([facility]) Urine Protein Laboratory test result 0-0 Abnormal (applies to non-numeric results) [facility] ([facility]) Glucose [Presence] in Urine Laboratory test result Abnormal (applies to non- numeric results) [facility] ([facility]) Urine Ketone Laboratory test result [facility] NT ([facility]) Urine Nitrite Laboratory test result [facility] ([facility]) Bilirubin.total [Mass/volume] in Serum or Plasma Laboratory test resu lt [facility] ([facility]) Urine Urobilinogen 0.2 mg/dL 0.2-1.0 [facility]) ID Date Data Source [id number] 02/23/2021 01:32:00 PM EDT [facility]) Name Value Range Interpretation Code Description Data Natalie rce(s) Supporting Document(s) Thyrotropin [Units/volume] in Serum or Plasma by Detec tion limit <= 0.05 mIU/L 1.17 uIU/mL 0.36-3.74 [facility] ) ID Date Data Source [id number] 02/23/2021 01:32:00 PM EDT [facility]) Name Value Range Interpretation Code Description Data Natalie rce(s) Supporting Document(s) Glucose [Mass/volume] in Serum or Plasma 326 mg/dL 74-99 [facility] ([facility]) 100-125 mg/dL PRE-DIABETES/FASTING >126 mg/dL DIABETES/FASTING Sodium [Moles/volume] in Serum or Plasma 133 meq/L 136-145 [facility] ([facility]) Creatinine 1.5 mg/dL 0.6-1.3 [facility] ([facility]) Urea nitrogen [Mass/volume] in Serum or Plasma 24 mg/dL 7-18 [facility] ([facility]) Chloride [Moles/volume] in Serum or Plasma 96 meq/L 98-107 [facility] ([facility]) Potassium [Moles/volume] in Serum or Plasma 4.0 meq/L 3.5-5.1 [facility] Calcium [Mass/volume] in Serum or Plasma 9.7 mg/dL 8.5-10.1 [facility]) Glomerular filtration rate/1.73 sq M pre dicted among non-blacks [Volume Rate/Area] in Serum or Plasma by Creatinine-based formula (MDRD) 46 mL/min [facility] ([facility]) Carbon dioxide, total [Moles/volume] in Serum or Plasma 27 meq/L 21 -32 [facility] Glomerular filtration rate/1.73 sq M pre dicted among blacks [Volume Rate/Area] in Serum or Plasma by Creatinine-based formula (MDRD) 56 mL/min [facility] <content>CHRONIC KIDNEY DISEASE STAGING PER NKF</content>
<content></content>
<content>STAGE I & II GFR >= 60 NORMAL TO MILDLY DECREASED</content>
<content>STAGE III GFR 30-59 MODERATELY DECREASED</content>
<content>STAGE IV GFR 15-29 SEVERELY DECREASED</content>
<content>STAGE V GFR <15 VERY LITTLE GFR LEFT</content>
<content>ESRD GFR <15 ON HEAVY DUTY PRESS OPERATOR</content>
<content></content> ID Date Data Source [id number] 02/23/2021 01:32:00 PM EDT [facility] Name Value Range Interpretation Code Description Data Natalie rce(s) Supporting Document(s) Leukocytes [#/volume] in Blood by Automated count 8.7 x10*3/UL 4.1-10 .9 [facility] Hemoglobin [Mass/volume] in Blood 13.8 g/dL 12.0-18.0 [facility] Erythrocytes [#/volume] in Blood by Automated count 4.53 x10*6/UL 4.2 0-6.30 [facility] MCV 87.6 fL 80.0-97.0 [facility] ([facility]) Hematocrit [Volume Fraction] of Blood by Automated count 39.7 % 3 7.0-51.0 [facility] ([facility]) MCHC 34.9 g/dL 31.0-38.0 [facility] ([facility]) MCH 30.6 pg 26.0-32.0 [facility] ([facility]) Erythrocyte distribution width [Ratio] by Automated count 13.1 % 11.6-13.7 [facility] [facility] Platelets [#/volume] in Blood by Automated count 219 x10*3/UL 140-440 [facility] ([facility]) MPV 8.0 FL 7.8-11.0 [facility] [facility] Neut % 70.8 % 37.0-92.0 [facility] [facility]) Mid % 5.4 % 1.7-9.3 [facility] ([place] [facility] Lymph % 23.8 % 10.0-58.5 [facility] [facility] Lymph # 2.0 x10*3/UL 0.6-4.1 [facility] ([facility]) Mid # 0.6 x10*3/UL 0.1-0.6 [facility] ([facility]) Neut # 6.1 x10*3/UL 2.0-7.8 [facility] ([facility]) ID Date Data Source [id number] 01/05/2021 11:19:00 AM EST [facility] ([facility] Name Value Range Interpretation Code Description Data Natalie rce(s) Supporting Document(s) Hemoglobin A1c/Hemoglobin.total in Blood 11.6 % [facility] NOTE: RESULT VERIFIED. Lab Result Notes: Pre-Diabetes 5.7 - 6.4 % Diabetes = or > 6.5% Glucose mean value [Mass/volume] in Blood Estimated fr om glycated hemoglobin 286 mg/dL 60-110 [facility] ID Date Data Source [id number] 01/05/2021 11:19:00 AM EST [facility] ([facility] Name Value Range Interpretation Code Description Data Natalie rce(s) Supporting Document(s) Thyrotropin [Units/volume] in Serum or Plasma by Detec tion limit <= 0.05 mIU/L 1.67 uIU/mL 0.36-3.74 [facility] ID Date Data Source [id number] 01/05/2021 11:19:00 AM EST [facility] Name Value Range Interpretation Code Description Data Natalie rce(s) Supporting Document(s) Glucose [Mass/volume] in Serum or Plasma 395 mg/dL 74-99 [facility] ([facility]) NOTE: RESULT VERIFIED. 100-125 mg/dL PRE-DIABETES/FASTING >126 mg/dL DIABETES/FASTING Creatinine 1.4 mg/dL 0.6-1.3 [facility] ([facility]) Urea nitrogen [Mass/volume] in Serum or Plasma 18 mg/dL 7-18 [facility] ([facility]) Potassium [Moles/volume] in Serum or Plasma 4.4 meq/L 3.5-5.1 [facility] ([facility]) Sodium [Moles/volume] in Serum or Plasma 133 meq/L 136-145 [facility] ([facility]) NOTE: RESULT VERIFIED. Chloride [Moles/volume] in Serum or Plasma 96 meq/L 98-107 [facility] ([facility]) Carbon dioxide, total [Moles/volume] in Serum or Plasma 28 meq/L 21 -32 [facility] ([facility]) Total Bilirubin 0.5 mg/dL 0.2-1.0 [facility] ([facility]) Alkaline phosphatase isoenzyme [Units/volume] in Serum or Pl asma 95 mg/dL 46-116 [facility] ([facility]) Calcium [Mass/volume] in Serum or Plasma 9.5 mg/dL 8.5-10.1 [facility] ([facility]) Alanine aminotransferase [Enzymatic activity/volume] in Seru m or Plasma 64 U/L 12-78 [facility] ([facility]) Aspartate aminotransferase [Enzymatic activity/volume] in Serum or Plasma 43 U/L 15-37 [facility] ([facility] ) Proteinase 3 Ab [Units/volume] in Serum 8.4 g/dL 6.4-8.2 [facility] ([facility]) A/G Ratio 0.75 CALC 1.00-1.90 [facility]) Albumin [Mass/volume] in Serum or Plasma 3.6 g/dL 3.4-5.0 [facility] ([facility]) Glomerular filtration rate/1.73 sq M pre dicted among blacks [Volume Rate/Area] in Serum or Plasma by Creatinine-based formula (MDRD) Laboratory test result [facility] ([facility]) <content>CHRONIC KIDNEY DISEASE STAGING PER NKF</content>
<content></content>
<content>STAGE I & II GFR >= 60 NORMAL TO MILDLY DECREASED</content>
<content>STAGE III GFR 30-59 MODERATELY DECREASED</content>
<content>STAGE IV GFR 15-29 SEVERELY DECREASED</content>
<content>STAGE V GFR <15 VERY LITTLE GFR LEFT</content>
<content>ESRD GFR <15 ON HEAVY DUTY PRESS OPERATOR</content>
<content></content> Glomerular filtration rate/1.73 sq M pre dicted among non-blacks [Volume Rate/Area] in Serum or Plasma by Creatinine-based formula (MDRD) 50 mL/min [facility] ([facility]) ID Date Data Source [id number] 01/05/2021 11:19:00 AM EST [facility] ([facility]) Name Value Range Interpretation Code Description Data Natalie rce(s) Supporting Document(s) Leukocytes [#/volume] in Blood by Automated count 9.0 x10*3/UL 4.1-10 .9 [facility] ([facility]) Erythrocytes [#/volume] in Blood by Automated count 4.63 x10*6/UL 4.2 0-6.30 [facility] ([facility]) Hematocrit [Volume Fraction] of Blood by Automated count 40.5 % 3 7.0-51.0 [facility] ([facility]) Hemoglobin [Mass/volume] in Blood 14.1 g/dL 12.0-18.0 [facility] ([facility]) MCV 87.5 fL 80.0-97.0 [facility] [facility] MCHC 34.8 g/dL 31.0-38.0 [facility] MCH 30.4 pg 26.0-32.0 [facility] Platelets [#/volume] in Blood by Automated count 225 x10*3/UL 140-440 [facility] ([facility]) Erythrocyte distribution width [Ratio] by Automated count 12.7 % 11.6-13.7 [facility] ([facility]) Lymph % 23.1 % 10.0-58.5 [facility] ([place] [facility]) Mid % 5.4 % 1.7-9.3 [facility] ([place] [facility]) MPV 8.1 FL 7.8-11.0 [facility] ([place] [facility] Neut % 71.5 % 37.0-92.0 [facility] [facility] Lymph # 2.0 x10*3/UL 0.6-4.1 [facility] ([facility]) Neut # 6.4 x10*3/UL 2.0-7.8 [facility] ([facility]) Mid # 0.6 x10*3/UL 0.1-0.6 [facility] ([facility]) ID Date Data Source [id number] 01/05/2021 11:19:00 AM EST [facility] ([facility]) Name Value Range Interpretation Code Description Data Natalie rce(s) Supporting Document(s) Hemoglobin A1c/Hemoglobin.total in Blood Laboratory test result [facility] ([facility]) ID Date Data Source [id number] 12/24/2020 11:31:00 AM EST [facility] ([facility]) Name Value Range Interpretation Code Description Data Natalie rce(s) Supporting Document(s) Natriuretic peptide.B prohormone N-Terminal [Mass/volu me] in Serum or Plasma 30 pg/mL [facility] [facility]) ID Date Data Source [id number] 12/24/2020 11:31:00 AM EST [facility] Name Value Range Interpretation Code Description Data Natalie rce(s) Supporting Document(s) Glucose, Fasting 353 mg/dL 70-100 [facility] Creatinine For GFR 1.50 mg/dL 0.70-1.30 [facility] ([facility]) Blood Urea Nitrogen 26 mg/dL 7-18 [facility] ([facility]) Sodium Level 136 meq/L 136-145 [facility] ([facility]) Glomerular Filtration Rate 49.1 [facility] ([facility]) <content>Units are mL/min/1.73 m2</content>
<content></content>
<content>Chronic Kidney Disease Staging per NKF:</content>
<content></content>
<content>Stage I & II GFR >=60 Normal to Mildly Decreased</content>
<content>Stage III GFR 30- 59 Moderately Decreased</content>
<content>Stage IV GFR 15-29 Severely Decreased</content>
<content>Stage V GFR <15 Very Little GFR Left</content>
<content>ESRD GFR <15 on HEAVY DUTY PRESS OPERATOR</content>
<content></content> Potassium Serum 4.1 meq/L 3.5-5.1 [facility] ([facility]) Chloride Level 98 meq/L 98-107 [facility] ([facility]) Carbon Dioxide Level 29 meq/L 21-32 [facility] ([facility]) Calcium Level 10.0 mg/dL 8.8-10.2 [facility] ([facility]) Anion Gap 9 meq/L 8-16 [facility] ID Date Data Source [id number] 12/24/2020 11:31:00 AM EST [facility] ([facility]) Name Value Range Interpretation Code Description Data Natalie rce(s) Supporting Document(s) Natriuretic peptide.B prohormone N-Terminal [Mass/volu me] in Serum or Plasma 30 pg/mL [facility] ([facility] ) ID Date Data Source [id number] 12/24/2020 11:31:00 AM EST [facility] ([facility]) Name Value Range Interpretation Code Description Data Natalie rce(s) Supporting Document(s) Glucose, Fasting 353 mg/dL 70-100 [facility] ([facility]) Blood Urea Nitrogen 26 mg/dL 7-18 [facility] ([facility]) Glomerular Filtration Rate 49.1 [facility] ([facility]) <content>Units are mL/min/1.73 m2</content>
<content></content>
<content>Chronic Kidney Disease Staging per NKF:</content>
<content></content>
<content>Stage I & II GFR >=60 Normal to Mildly Decreased</content>
<content>Stage III GFR 30- 59 Moderately Decreased</content>
<content>Stage IV GFR 15-29 Severely Decreased</content>
<content>Stage V GFR <15 Very Little GFR Left</content>
<content>ESRD GFR <15 on HEAVY DUTY PRESS OPERATOR</content>
<content></content> Creatinine For GFR 1.50 mg/dL 0.70-1.30 [facility] Potassium Serum 4.1 meq/L 3.5-5.1 [facility] ([facility]) Sodium Level 136 meq/L 136-145 [facility] ([facility]) Chloride Level 98 meq/L 98-107 [facility] Carbon Dioxide Level 29 meq/L 21-32 [facility] Calcium Level 10.0 mg/dL 8.8-10.2 [facility] Anion Gap 9 meq/L 8-16 [facility] ([facility]) ID Date Data Source [id number] 10/01/2020 12:00:00 AM [facility] o[facility] Imaging Kalpesh Pollack Jr, MD Patient Name: MAC GROSS[age] [facility] 1950[facility] [id number] Date of Exam: 10/01/2020#: Fax: [phone] EXAM: MRI BRAIN WITHOUT&WITH CONTRASTPROCEDURE INFORMATION:Exam: MR Head Without and With ContrastExam date and time: 10/01/2020 1:31 PM Age: 70 years oldClinical indication: Other: Headaches, imbalanceTECHNIQUE: Imaging protocol: MR of the head without and with intravenouscontrast. Contrast material: PROHANCE; Contrast volume: 12 ml; Contrastroute: INTRAVENOUS (IV);COMPARISON: No relevant prior studies available.FINDINGS:Brain: No acute infarct identified on the diffusion-weighted imaging. Thebrain demonstrates mild generalized volume loss. Patchy foci of increasedsignal intensity in the deep and subcortical white matter as well as ponsmost likely representing mild chronic small vessel ischemic change.Cerebral ventricles: The ventricles appear mildly enlarged in keeping withvolume loss. No enhancing lesions identified on the postcontrast imaging.Bones/joints: Unremarkable.Paranasal sinuses: Trace ethmoid mucosal thickening.Mastoid air cells: Normal as visualized. No mastoid effusion.Orbits: Unremarkable.Soft tissues: Unremarkable.IMPRESSION:Essentially unremarkable MRI brain without and with contrast for age.Thank you for allowing us to participate in the care of your patient.Dictated and Authenticated by: Olesya Hanna MD 10/01/2020 3:24 PMEastern Time ([place] & [place])VradV/jmcThank you for referring MAC GROSS to our office. Electronically Signed - [facility] 10/01/20 15:32 Name Value Range Interpretation Code Description Data Natalie rce(s) Supporting Document(s) ID Date Data Source [id number] 09/22/2020 07:53:00 PM [facility] ED Physician Documentation NAME: MAC GROSS : 1950 AGE: 70 MR#: [id number] SERVICE DATE: 09/22/[address]: Reji Bustos MD PRIMARY CARE DR: Kalpesh Pollack M.D. ROOM#: HPI (Adult, General) General Chief Complaint: Respiratory Pulmonary Stated Complaint: CHEST PAIN, SOB Resident LTC, travel outisde home, exposure to hot tubs:: No Time Seen by Provider: 09/22/20 19:11 Source: patient Exam Limitations: clinical condition History of Present Illness Narrative: 70-year-old white male history of COPD and diabetes and GERD and suspected peptic ulcer recently for such symptoms and referred to GI in [place] who concurred but refrained to re-scope but will treat empirically. That said, he has present Concerns of significant nasal drip and deep ear discomfortpressure bilaterally and throat and mild chest discomfort shortness of breath with room air pulse ox of 98% - there is no exertional component to his chest discomfort. Says he has occasional chills but no known fever or shaking chills. Nonausea vomiting or diaphoresis palpitations or near syncope Does say that he has lost smell and taste and is being Covid tested presently. Patient has multiple somatic complaints but ROS is otherwise acutely noncontributory apart from the above. PMH PSH and EMR data is appreciated , , Allergies/Home Meds Allergies Allergy/AdvReac Type Severity Reaction Status Date / Time ciprofloxacin Allergy Severe Rash Verified 09/22/20 19:11 Penicillins Allergy Intermediate Hives Verified 09/22/20 19:11 Sulfa (Sulfonamide Allergy Intermediate Hives Verified 09/22/20 19:11 Antibiotics) levofloxacin [From Levaquin] AdvReac Mild Confusion Verified 09/22/20 19:11 Home Medications Medication Instructions Recorded Confirmed Last Taken Type Bystolic 5 mg PO DAILY 05/27/20 09/22/20 09/22/20 History irbesartan 150 mg PO DAILY 05/27/20 09/22/20 09/22/20 History levothyroxine 125 mcg PO DAILY 05/27/20 09/22/20 09/22/20 History pantoprazole [Protonix] 40 mg PO DAILY 05/27/20 09/22/20 09/22/20 History spironolactone 25 mg PO DAILY 05/27/20 09/22/20 09/22/20 History torsemide 20 mg PO DAILY 05/27/20 09/22/20 09/22/20 History albuterol sulfate 2 puffs IH QID PRN #18 gm 06/01/20 09/22/20 09/22/20 Rx budesonide-formoterol [Symbicort] 2 puffs IH BID #10.2 gm 06/01/20 09/22/2009/22/20 Rx finasteride 5 mg PO DAILY #30 tab 06/01/20 09/22/20 09/22/20 Rx tamsulosin 0.4 mg PO DAILY #30 cap 06/01/20 09/22/20 09/22/20 Rx Toujeo Max U-300 SoloStar 100 unit SUBCUT HS 06/06/20 09/22/20 09/21/20 History insulin lispro [Humalog KwikPen 10 unit SUBCUT TIDWM 06/08/20 09/22/20 09/22/20 History Insulin] insulin lispro [Humalog KwikPen See Rx Instructions .ROUTE .COMPLEX 06/08/20 09/22/20 09/22/20 History Insulin] nitrofurantoin macrocrystal 100 mg PO BID #14 cap 06/08/20 09/22/20 09/22/20 Rx ciprofloxacin HCl [Cipro] 500 mg PO Q12HR #14 tab 07/20/20 09/22/20 09/22/20 Rx metronidazole [Flagyl] 500 mg PO Q8H 7 Days #21 tab 07/20/20 09/22/20 09/22/20 Rx PMH (from Triage) Patient Medical History PMH Reviewed/ Updated as Needed: Yes PMH/PSH from Triage: Medical History (Updated 06/05/20 @ 16:38 by Mikayla Hughes) COPD (chronic obstructive pulmonary disease) (Medical) J44.9 Diabetes mellitus (Medical) E11.9 GERD (gastroesophageal reflux disease) (Medical) K21.9 Hypothyroidism (Medical) E03.9 Surgical History (Updated 09/22/20 @ 19:17 by Barb Pantoja) Hx of hernia repair (Surgical) Z98.890, Z87.19 Hx of partial thyroidectomy (Surgical) Z90.09 Hx Drug Resistant Infections Hx MRSA: (Methicillin-resistant Staphylococcus aureus): No Hx VRE (Vancomycin-resistant enterococci): No Hx C.Diff: No Hx CRKP: No Hx Other Resistant Infection?: No Isolation: Standard precautions Hx Recent Travel Out of the country within 10 days (where): No Hx Fever with a rash?: No Nurse screening for coronavirus: Recent Travel outside the No country (where) Has patient experienced No coronavirus symptoms Social History Are you in a relationship with/Does anyone hit you, yell/swear at you, steal from you?: No Substance Use Smoking Status: Former smoker Tobacco Use Hx Chewing Tobacco Use: No Vaccination History Hx/Date of Tetanus, Diphtheria Vaccination: Yes Hx/Date of Influenza Vaccination: No Hx/ Date of Pneumococcal Vaccination: No PFSH Medical History COPD (chronic obstructive pulmonary disease) Diabetes mellitus GERD (gastroesophageal reflux disease) Hypothyroidism Surgical History (Updated 09/22/20 @ 19:17 by Barb Pantoja) Hx of hernia repair Hx of partial thyroidectomy Social History Does the Patient have a Healthcare Proxy: Yes Does Patient have a DNR?: No Does Patient have a Living Will?: No Does the Patient have a MOLST?: No Advance Directives on File or in chart?: No Hx Recent Travel (where): No Smoking Status: Former smoker ROS Review of Systems Constitutional: Reports chills and weakness Eyes: Denies vision change and eye pain ENT: Reports ear pain, tinnitis, nasal discharge, nasal congestion, post nasal drip, throat pain and pain upon swallowing; Denies ear discharge, nasal pain, epistaxis, throat swelli ng, hoarseness, constant throat clearing, recent head trauma, recent airplane travel, recent swimming/diving and pain worse with motion Respiratory: Reports cough, sputum, SOB w/exertion rest, SOB and exposures (possible ); Denies orthopnea, stridor, wheezing, hemoptysis and pleuritic pain Cardiovascular: Reports chest pain, edema and dyspnea on exertion; Denies palpitations, orthopnea, paroxysmal noc dyspnea, light headedness, syncope and known heart murmurs Gastrointestinal: Reports nausea, abdominal pain, heartburn and reflux/regurg; Denies diarrhea, constipation, frequent belching, hematemesis, black tarry stools, melena, hematochezia, coffee grounds emesis, stomach pain relieved by food and hx of jaundice Genitourinary-Male: Denies dysuria and hematuria Musculoskeletal: Denies neck pain, shoulder pain, arm pain and hand pain Skin/Breasts: Denies rash and pruritus Neurologic: Denies headache, incoordination, change in speech, confusion, vertigo, seizures, tremors and abnormal gait Psychiatric: Reports anxiety and depression Endocrine: Denies Excessive sweating, Intolerance to cold, Polydipsia, Polyuria and Unexplained weight loss Hematological/Lymphatic: Denies easy bleeding All ergic/Immunologic: Denies rash, night sweats, wheals and flare Physical Exam General Limitations: physical limitation General appearance: alert, in no apparent distress and anxious Head Head exam: Present atraumatic, normocephalic and normal inspection Eye Eye exam: Present normal apperance, PERRL and EOMI; Absent scleral icterus and conjunctival injection Pupils: Present normal accommodation ENT ENT exam: Present mucous membranes moist, TM's normal bilaterally, normal external ear exam and other (Ph inj no exudates R > L max sinus area percussion PtT ) Neck Neck exam: Present normal inspection, supple and other (No bruits ); Absent tenderness, meningismus, lymphadenopathy and thyromegaly Respiratory Respiratory exam: Present normal lung sounds bilaterally and chest wall tenderness; Absent respiratory distress, wheezes, rales, rhonchi, stridor, accessory muscle use, decreased breath sounds and prolonged expiratory Cardiovascular Cardiovascular Exam: Present regular rate, normal rhythm, normal heart sounds and no murmur; Absent rubs, gallop, clicks, JVD, S3 and S4 GI/Abdominal GI/Abdominal exam: Present Abd soft, bowel sounds present all quadrents, soft and normal bowel sounds; Absent tenderness, guarding, rebound, rigid, organomegaly, bruit and pulsatile mass Rectal Rectal exam: Present deferred exam: Present other (deferred) Extremities Exam Extremities exam: Present capillary refill brisk; Absent tenderness and calf tenderness Back Exam Back exam: Present normal inspection; Absent tenderness, CVA tenderness (R), CVA tenderness (L), paraspinal tenderness and vertebral tenderness Neurological Exam Neurological exam: Present alert, oriented X3, CN II-XII intact, normal gait (per baseline ) and reflexes normal; Absent motor sensory deficit Psychiatric Psychiatric exam: Present depressed and anxious; Absent homicidal ideation and suicidal ideation Skin Skin exam: Present warm and dry; Absent rash and cyanosis Vital Signs Vital Signs: Vital Signs 09/22/20 18:14 Temperature 97.7 F Pulse Rate 67 Respiratory Rate 24 Blood Pressure 173/87 O2 Sat by Pulse Oximetry 98 MDM (comprehensive) Lab Data Labs: 09/22/20 18:40 09/22/20 18:40 Laboratory Results Last 24 hours 11/10/20 18:40: WBC 7.9, RBC 4.03 L, Hgb 12.2 L, Hct 36.8 L, MCV 91.3, MCH 30.3, MCHC 33.2, RDW 13, Plt Count 203, MPV 9.7, Immature Gran % (Auto) 0.3, Neut % (Auto) 65.5, Lymph % (Auto) 24.3, Brooke % (Auto) 6.7, Eos % (Auto) 2.6, Baso % (Auto) 0.6, Lymph # (Auto) 1.9, Abs Immat Gran (auto) 0.0, Add Manual Diff No, Absolute Neutrophils 5.2, Monocytes # 0.5, Absolute Eosinophils 0.2, Absolute Basophils 0.1 09/22/20 18:40: PT 10.6, INR 1.0, PTT ([place]) 26.7 09/22/20 18:40: Sodium 139, Potassium 4.0, Chloride 105, Carbon Dioxide 25, Anion Gap 13, BUN 14, Creatinine 1.2 H, GFR Calculation 60, Glucose 374 H, Calcium 9.0, Total Bilirubin 0.2 L, AST 32, ALT 47, Alkaline Phosphatase 86, Troponin I Less than 0.015, Dam-D-Ardvysjpjyr Pept 162.00, Serum Total Protein 7.8, Albumin 3.1 L 09/22/20 18:40: Lipase 190 Microbiology 09/22/20 18:50 Nasopharyngeal Respiratory Panel (PCR) - Final Human Rhinovirus/enterovirus EKG Data - : EKG Interpreted by Me (64 rsr low volt nssts nl axis intervals otherwise nsivcd ) Radiology Data interpreted by me: CXR = napd Medical Decision Making Free Text/Narative:: All test neg except Human Rhinovvius Differential Diagnosis Differential Diagnosis: see URI v Covid 19 v cad v CAP v other Critical Care Time Critical Care Time Critical Care Time: Yes ED Critical Care Time - Select One: 31-74 Minutes Total Critical Care Time: 33 Critical Care Time: Large cc DDx W/u to = DX Plan Plan Plan: per above DC data Discharge Plan Admission/Discharge Dx Primary DC Diagnosis: URI/Human Rhinovirus Anxiety About Health ED Provider: Reji Bustos ED Status: Ready for Discharge Time Seen by Provider: 09/22/20 19:11 Triaged At: 11/10/20 18:14 Condition Condition: Stable Discharge Detail Disposition: Home, Self-Care Med Rec New Prescriptions: No Action torsemide 20 mg Tablet 20 mg PO DAILY RF: 0 pantoprazole [Protonix] 20 mg Tablet,Delayed Release (Dr/Ec) 40 mg PO DAILY RF: 0 irbesartan 150 mg Tablet 150 mg PO DAILY RF: 0 Bystolic 5 mg Tablet 5 mg PO DAILY RF: 0 spironolactone 25 mg tablet 25 mg PO DAILY RF: 0 levothyroxine 125 mcg tablet 125 mcg PO DAILY RF: 0 tamsulosin 0.4 mg Capsule 0.4 mg PO DAILY Qty: 30 RF: 0 finasteride 5 mg Tablet 5 mg PO DAILY Qty: 30 RF: 0 budesonide-formoterol [Symbicort] 80-4.5 mcg/actuation HFA aerosol inhaler 2 puffs IH BID Qty: 10.2 RF: 0 albuterol sulfate 90 mcg/actuation HFA aerosol inhaler 2 puffs IH QID PRN (Reason: shortness of breath or wheezing) Qty: 18 RF: 0 Toujeo Max U-300 SoloStar 300 unit/mL (3 mL) insulin pen 100 unit SUBCUT HS RF: 0 nitrofurantoin macrocrystal 100 mg capsule 100 mg PO BID Qty: 14 RF: 0 insulin lispro [Humalog KwikPen Insulin] 100 unit/mL insulin pen 10 unit SUBCUT TIDWM RF: 0 insulin lispro [Humalog KwikPen Insulin] 100 unit/mL Insulin Pen See Rx Instructions .ROUTE .COMPLEX RF: 0 ciprofloxacin HCl [Cipro] 500 mg tablet 500 mg PO Q12HR Qty: 14 RF: 0 metronidazole [Flagyl] 500 mg tablet 500 mg PO Q8H 7 Days Qty: 21 RF: 0 Discharge Education Printouts: Acute Bronchitis (ED) Follow Up Visit/Referrals: Kalpesh Pollack M.D. [Primary Care Provider] - Medications Medication reconciliation performed by provider at discharge: Yes Follow Up Care/Instructions Diet/Activity/Wound Care..: see Dx Rx tylenol for fever or aches see pcp in 3 d RTED if sx increase or any new ssx or fever , , *Discharge Patient* Discharge Orders: Discharge Order (Routine); Ordered 09/22/20 Ordered By: Reji Bustos Report Signers: <Electronically signed by Reji Bustos MD> Reji Bustos MD 09/22/202052 Reji Bustos MD SIGNATURE DA Report Cosigners: D: SELINA 09/22/201952 T: SELINA 09/22/201952 CC: Kalpesh Pollack M.D. Name Value Range Interpretation Code Description Data Natalie rce(s) Supporting Document(s) ID Date Data Source [id number] 09/22/2020 07:11:00 PM [facility] [address] [place] [address] [phone] NAME SEX PT STATUS ACCOUNT NUMBER [facility] ER [id number] ORDERING PHYSICIAN LOCATION MEDICAL RECORD NO. Daniel Pennington MD ER [id number] ATTENDING PHYSICIAN DATE OF DATE OF EXAM/TIME Kalpesh Pollack MD 1950 09/22/201902 TYPE / EXAM Xray Chest One View REASON FOR EXAM Chest pain and SOB Clinical History/Indication for Exam: Chest pain and SOB RADIOGRAPH OF THE CHEST 1 VIEW INDICATION: Chest pain and SOB COMPARISON: Chest radiograph of 09/10/2020 FINDINGS: Lungs: Unremarkable. No consolidation. Pleural space: Unremarkable. No pneumothorax. Heart: Unremarkable. No cardiomegaly. Mediastinum: Unremarkable. Bones/joints: Unremarkable. IMPRESSION: No acute cardiopulmonary disease. REPORT SIGNATURE ON FILE 09/22/2020 (19:11 Eastern Time ) Signed by: Daniel Tristan M.D. Reported By Daniel Tristan MD on 09/22/201910 Signed By Daniel Tristan MD on 09/22/201910 Date Time CC: Kalpesh Pollack M.D.; Daniel Tristan MD Techn: CHRISTIAN Trans Dt/Tm: Trans by: DT Prt Dt/Tm: [id number]: Total DLP = 0.00 mGy-cm Fluoroscopy Time (in secs): Name Value Range Interpretation Code Description Data Natalie rce(s) Supporting Document(s) ID Date Data Source [id number] 09/22/2020 08:17:00 PM [facility] THIS RP PANEL TESTS FOR SARS-CoV -2,(COVID-19)FilmArray Respiratory Panel is a Multiplexed NAAT-PCR testNORMAL VALUE FOR ALL 20 PATHOGENS IS "NOT DETECTED".The FilmArray RP panel detects Influenza A H1,H3 [id number] H1 viruses,Influenza B virus, Respiratory syncytialvirus, Human metapneumovirus,Parainfluenza virus 1,2,3, and4, Adenovirus,Rhino/Enterovirus,Coronavirus HKU 1, Nl63,OC43, and 229E,Bordetella pertussis, Bordetellaparapertussis, Mycoplasma pneumoniae and Chlamydiapneumoniae, SARS-CoV-2 (COVID 19).THIS TEST HAS NOT BEEN EVALUATED FOR USE WITH SPECIMENSOTHER THAN NASOPHARYNGEAL SWAB SPECIMENS.THE PERFORMANCE OF THIS TEST HAS NOT BEEN ESTABLISHED FORPATIENTS WITHOUT SIGNS AND SYMPTOMS OF RESPIRATORYINFECTION.RESULTS FROM THIS TEST MUST BE CORRELATED WITH CLINICALHIST ORY, EPIDEMIOLOGICAL DATA , AND OTHER DATA AVAILABLE TOTHE CLINICIAN EVALUATING THE PATIENT.THE PERFORMANCE OF THE FilmARRAY RP HAS NOT BEEN ESTABLISHEDIN INDIVIDUALS WHO RECEIVED INFLUENZA VACCINE. RECENTADMINISTRATION OF A NASAL INFLUENZA VACCINE MAY CAUSE AFALSE POSITIVE RESULT FOR INFLUENZA A AND/OR B.NEGATIVE RESULTS SHOULD NOT BE USED THE SOLE BASIS FORDIAGNOSIS, TREATMENT, OR OTHER MANAGEMENT DECISIONS.NEGATIVE RESULTS IN THE SETTING OF A RESPIRATORY ILLNESSMAYBE DUE TO INFECTION WITH PATHOGENS THAT ARE NOT DETECTEDBY THIS TEST OR LOWER RESPIRATORY TRACT INFECTION THAT ISNOT DETECTED BY A NASOPHARYNGEAL SWAB SPECIMEN.RV+EV RNA Nph Ql ROMELIA+non-probe Name Value Range Interpretation Code Description Data Natalie rce(s) Supporting Document(s) ID Date Data Source [id number] 09/22/2020 06:50:00 PM EST [facility] ([facility]) Name Value Range Interpretation Code Description Data Natalie rce(s) Supporting Document(s) Respiratory pathogens DNA and RNA panel - Nasopharynx by Target amplification with non-probe based detection Laboratory test result [facility] ([facility]) THIS RP PANEL TESTS FOR SARS-CoV-2,(COVID-19) FilmArray Respiratory Panel is a Multiplexed NAAT-PCR test NORMAL VALUE FOR ALL 20 PATHOGENS IS "NOT DETECTED". The FilmArray RP panel detects Influenza A H1,H3 and 2009 H1 viruses,Influenza B virus, Respi ratory syncytial virus, Human metapneumovirus,Parainfluenza virus 1,2,3, and 4, Adenovirus,Rhino/Enterovirus,Coronavi rod HKU 1, Nl63, OC43, and 229E,Bordetella pertussis, Bordetella parapertussis, Mycoplasma pneumoniae and Chlamydia pneumoniae, SARS-CoV-2 (COVID 19). THIS TEST HAS NOT BEEN EVALUATED FOR USE WITH SPECIMENS OTHER THAN NASOPHARYNGEAL SWAB SPECIMENS. THE PERFORMANCE OF THIS TEST HAS NOT BEEN ESTABLISHED FOR PATIENTS WITHOUT SIGNS AND SYMPTOMS OF RESPIRATORY INFECTION. RESULTS FROM THIS TEST MUST BE CORRELATED WITH CLINICAL HISTORY, EPIDEMIOLOGICAL DATA , AND OTHER DATA AVAILABLE TO THE CLINICIAN EVALUATING THE PATIENT. THE PERFORMANCE OF THE FilmARRAY RP HAS NOT BEEN ESTABLISHED IN INDIVIDUALS WHO RECEIVED INFLUENZA VACCINE. RECENT ADMINISTRATION OF A NASAL INFLUENZA VACCINE MAY CAUSE A FALSE POSITIVE RESULT FOR INFLUENZA A AND/OR B. NEGATIVE RESULTS SHOULD NOT BE USED THE SOLE BASIS FOR DIAGNOSIS, TREATMENT, OR OTHER MANAGEMENT DECISIONS. NEGATIVE RESULTS IN THE SETTING OF A RESPIRATORY ILLNESS MAYBE DUE TO INFECTION WITH PATHOGENS THAT ARE NOT DETECTED BY THIS TEST OR LOWER RESPIRATORY TRACT INFECTION THAT IS NOT DETECTED BY A NASOPHARYNGEAL SWAB SPECIMEN. RV+EV RNA Nph Ql ROMELIA+non-probe ID Date Data Source [id number] 09/22/2020 07:28:00 PM [facility] Name Value Range Interpretation Code Description Data Natalie rce(s) Supporting Document(s) Lipase [Enzymatic activity/volume] in Serum or Plasma 190 U/L 73-3 [address] [facility] ID Date Data Source [id number] 09/22/2020 06:57:00 PM [facility] Anticoagulant or Thrombolytic medication : Unknown Name Value Range Interpretation Code Description Data Natalie rce(s) Supporting Document(s) Leukocytes [#/volume] in Blood by Automated count 7.9 10*3/uL 4.45-10 .71 N [facility] Erythrocytes [#/volume] in Blood by Automated count 4.03 10*6/uL 4.3-6.1 Below low normal [facility] Hemoglobin [Moles/volume] in Blood 12.2 g/dL 13-18 Below low no rmal [facility] Hematocrit [Volume Fraction] of Blood by Automated count 36.8 % 42-52 Below low normal [facility] Erythrocyte mean corpuscular volume [Ent itic volume] in Cord blood by Automated count 91.3 fL 80-96 N [facility] ital Erythrocyte mean corpuscular hemoglobin [Entitic mass] by Automated count 30.3 pg 27-31 N [facility] l Erythrocyte mean corpuscular hemoglobin concentration [Mass/volume] in Cord blood 33.2 g/dL 33-37 N [facility] ital Erythrocyte distribution width [Entitic volume] by Automated count 13 % 11-15 N [facility] Platelets [#/volume] in Blood by Automated count 203 10*3/uL 130-472 N [facility] Platelet mean volume [Entitic volume] in Blood 9.7 fL 9.1-13.1 N [facility] Neutrophils/100 leukocytes in Blood by Automated count 65.5 % 41- 77 N [facility] Neutrophils [#/volume] in Blood by Automated count 5.2 U 1.7-7.6 N [facility] Lymphocytes/100 leukocytes in Blood by Automated count 24.3 % 14- 46 N [facility] Lymphocytes [#/volume] in Blood by Automated count 1.9 U 0.6-4.6 N [facility] Monocytes/100 leukocytes in Blood by Automated count 6.7 % 4-12 N [facility] Monocytes [#/volume] in Blood by Automated count 0.5 U 0.2-1.2 N [facility] Eosinophils/100 leukocytes in Blood by Automated count 2.6 % 0-7 N [facility] Eosinophils [#/volume] in Blood by Automated count 0.2 U 0.0-0.5 N [facility] Basophils/100 leukocytes in Blood by Automated count 0.6 % 0.4-1 .3 N [facility] Basophils [#/volume] in Blood by Automated count 0.1 U 0.0-0.2 N [facility] NUCLEATED RED BLOOD CELL 0 % [facility] NUCLEATED RED BLOOD CELL# [address] [facility] Immature granulocytes [Presence] in Blood by Automated count 0-2 N [facility] Immature granulocytes [#/volume] in Blood by Automated count 0.0 U 0-0.1 [facility] Manual Differential panel - Blood NO [facility] ID Date Data Source [id number] 09/22/2020 07:15:00 PM [facility] Anticoagulant or Thrombolytic medication : Unknown Name Value Range Interpretation Code Description Data Natalie rce(s) Supporting Document(s) Prothrombin Time (Patient) 10.6 s 9.6-12.3 N [facility] INR 1.0 0.9-1.1 [facility] THE INR IS OPERATIONALLY DEFINED FOR BILLY SH PLASMA FROMPATIENTS STABILIZED ON ORAL ANTICOAGULANTS.ROUTINE ANTICOAGULANT THERAPY 2.0-3.0RECURRENT SYSTEMIC EMBOLISM/HEART VALVE REPLACEMENT 2.5-3.5 aPTT.lupus sensitive (LA screen) 26.7 s 22.7-31.6 [facility] ID Date Data Source [id number] 09/22/2020 07:26:00 PM [facility] Anticoagulant or Thrombolytic medication : Unknown Name Value Range Interpretation Code Description Data Natalie rce(s) Supporting Document(s) Urea nitrogen [Mass/volume] in Serum or Plasma 14 mg/dL 9-23 [facility] Sodium [Moles/volume] in Serum or Plasma 139 mmol/L 132-146 [facility] Potassium [Moles/volume] in Serum or Plasma 4.0 mmol/L 3.5-5.5 [facility] Chloride [Moles/volume] in Serum or Plasma 105 mmol/L 99-109 [facility] Carbon dioxide, total [Moles/volume] in Serum or Plasma 25 mmol/L 20 -31 N [facility] Anion gap in Serum or Plasma 13 mmol/L 8-16 N [facility] Glucose [Mass/volume] in Serum or Plasma 374 mg/dL 74-106 Above high normal [facility] Creatinine 1.2 mg/dL 0.5-1.1 Above high normal [facility] Glomerular filtration rate/1.73 sq M.pre dicted [Volume Rate/Area] in Serum or Plasma 60 ml/min ABOVE 60 [facility] ital Alanine aminotransferase [Enzymatic acti vity/volume] in Serum or Plasma by With P-5'-P 47 U/L 10-49 N [facility] ital Aspartate aminotransferase [Enzymatic ac tivity/volume] in Serum or Plasma by With P-5'-P 32 U/L 0-33 N [facility] pital Alkaline phosphatase [Enzymatic activity/volume] in Serum or Plasma 86 U/L 45-129 N [facility] Calcium [Mass/volume] in Serum or Plasma 9.0 mg/dL 8.5-10.1 [facility] Bilirubin.total [Mass/volume] in Serum or Plasma 0.2 mg/dL 0.3-1.2 Below low normal [facility] Albumin [Mass/volume] in Serum or Plasma by Bromocresol purple (BCP) dye binding method 3.1 g/dL 3.2-4.8 Below low normal [facility] Protein [Mass/volume] in Serum or Plasma 7.8 g/dL 5.7-8.2 [facility] ID Date Data Source [id number] 09/22/2020 07:26:00 PM [facility] Anticoagulant or Thrombolytic medication : Unknown Name Value Range Interpretation Code Description Data Natalie rce(s) Supporting Document(s) Troponin I.cardiac [Mass/volume] in Serum or Plasma Less Than 0.015 0.00-0.09 [facility] Less than 0.09 NG/ML Negative0.10 - 0.77 NG/ML High Risk0.78 NG/ML or Greater PositiveThe WHO defined the cutoff (definition for diagnosis of GA)for this method as 0.78 ng/ml. ID Date Data Source [id number] 09/22/2020 07:26:00 PM [facility] Anticoagulant or Thrombolytic medication : Unknown Name Value Range Interpretation Code Description Data Natalie rce(s) Supporting Document(s) Natriuretic peptide.B prohormone N-Terminal [Mass/volu me] in Serum or Plasma 162.00 pg/mL 0.00-175 [facility] ID Date Data Source [id number] 09/22/2020 06:40:00 PM EST [facility] ([facility]) Name Value Range Interpretation Code Description Data Natalie rce(s) Supporting Document(s) Leukocytes [#/volume] in Blood by Automated count 7.9 10*3/uL 4.45-10 .71 [facility] ([facility]) Erythrocytes [#/volume] in Blood by Automated count 4.03 10*6/uL 4.3- 6.1 [facility] ([facility]) Hemoglobin [Moles/volume] in Blood 12.2 g/dL 13-18 [facility] ([facility]) Hematocrit [Volume Fraction] of Blood by Automated count 36.8 % 4 2-52 [facility] ([facility]) Erythrocyte mean corpuscular volume [Ent itic volume] in Cord blood by Automated count 91.3 fL 80-96 [facility] Erythrocyte mean corpuscular hemoglobin [Entitic mass] by Automated count 30.3 pg 27-31 [facility] ([facility] ) Erythrocyte mean corpuscular hemoglobin concentration [Mass/volume] in Cord blood 33.2 g/dL 33-37 [facility] Erythrocyte distribution width [Entitic volume] by Automated count 13 % 11-15 [facility] ([facility]) Platelets [#/volume] in Blood by Automated count 203 10*3/uL 130-472 [facility] ([facility]) Platelet mean volume [Entitic volume] in Blood 9.7 fL 9.1-13.1 [facility] ([facility]) Neutrophils/100 leukocytes in Blood by Automated count 65.5 % 41- 77 [facility] ([facility]) Lymphocytes/100 leukocytes in Blood by Automated count 24.3 % 14- 46 [facility] ([facility]) Neutrophils [#/volume] in Blood by Automated count 5.2 U 1.7-7.6 [facility] ([facility]) Lymphocytes [#/volume] in Blood by Automated count 1.9 U 0.6-4.6 [facility] ([facility]) Monocytes/100 leukocytes in Blood by Automated count 6.7 % 4-12 [facility] ([facility]) Monocytes [#/volume] in Blood by Automated count 0.5 U 0.2-1.2 [facility] ([facility]) Eosinophils/100 leukocytes in Blood by Automated count 2.6 % 0-7 [facility] ([facility]) Eosinophils [#/volume] in Blood by Automated count 0.2 U 0.0-0.5 [facility] ([facility]) Basophils/100 leukocytes in Blood by Automated count 0.6 % 0.4-1 .3 [facility] ([facility]) Basophils [#/volume] in Blood by Automated count 0.1 U 0.0-0.2 [facility] Nucleated Red Blood Cell 0 % [facility] Laboratory test finding (navigational concept) 0 U [facility] Immature granulocytes [Presence] in Blood by Automated count 0.3 0-2 [facility] Immature granulocytes [#/volume] in Blood by Automated count 0.0 U 0-0.1 [facility] Manual Differential panel - Blood Laboratory test result [facility] ID Date Data Source [id number] 09/22/2020 06:40:00 PM EST [facility] ([facility]) Name Value Range Interpretation Code Description Data Natalie rce(s) Supporting Document(s) Urea nitrogen [Mass/volume] in Serum or Plasma 14 mg/dL 9-23 [facility] ([facility]) Sodium [Moles/volume] in Serum or Plasma 139 mmol/L 132-146 [facility] ([facility]) Potassium [Moles/volume] in Serum or Plasma 4.0 mmol/L 3.5-5.5 [facility] ([facility]) Chloride [Moles/volume] in Serum or Plasma 105 mmol/L 99-109 [facility] ([facility]) Carbon dioxide, total [Moles/volume] in Serum or Plasma 25 mmol/L 20 -31 [facility] ([facility]) Anion gap in Serum or Plasma 13 mmol/L 8-16 M [facility] ([facility]) Glucose [Mass/volume] in Serum or Plasma 374 mg/dL 74-106 [facility] ([facility]) Creatinine 1.2 mg/dL 0.5-1.1 [facility] Glomerular filtration rate/1.73 sq M.pre dicted [Volume Rate/Area] in Serum or Plasma 60 [facility] ([facility]) Alanine aminotransferase [Enzymatic acti vity/volume] in Serum or Plasma by With P-5'-P 47 U/L 10-49 [facility] ([facility]) Aspartate aminotransferase [Enzymatic ac tivity/volume] in Serum or Plasma by With P-5'-P 32 U/L 0-33 [facility] ([facility]) Alkaline phosphatase [Enzymatic activity/volume] in Serum or Plasma 86 U/L 45-129 [facility] ([facility]) Calcium [Mass/volume] in Serum or Plasma 9.0 mg/dL 8.5-10.1 [facility] ([facility]) Bilirubin.total [Mass/volume] in Serum or Plasma 0.2 mg/dL 0.3-1.2 [facility] ([facility]) Albumin [Mass/volume] in Serum or Plasma by Bromocresol purple (BCP) dye binding method 3.1 g/dL 3.2-4.8 [facility] ([facility]) Protein [Mass/volume] in Serum or Plasma 7.8 g/dL 5.7-8.2 [facility] ([facility]) ID Date Data Source [id number] 09/22/2020 06:40:00 PM EST [facility] ([facility]) Name Value Range Interpretation Code Description Data Natalie rce(s) Supporting Document(s) Troponin I.cardiac [Mass/volume] in Serum or Plasma Laborato ry test result 0.00-0.09 [facility] Less than 0.09 NG/ML Negative 0.10 - 0.77 NG/ML High Risk 0.78 NG/ML or Greater Positive The WHO defined the cutoff (definition for diagnosis of GA) for this method as 0.78 ng/ml. Natriuretic peptide.B prohormone N-Terminal [Mass/volu me] in Serum or Plasma 162.00 pg/mL 0.00-175 [facility] ID Date Data Source [id number] 09/22/2020 06:40:00 PM EST [facility] ([facility]) Name Value Range Interpretation Code Description Data Natalie rce(s) Supporting Document(s) Lipoprotein lipase [Enzymatic activity/volume] in Serum or P lasma 190 U/L 73-393 [facility] ([facility]) ID Date Data Source [id number] 09/22/2020 06:40:00 PM EST [facility] ([facility]) Name Value Range Interpretation Code Description Data Natalie rce(s) Supporting Document(s) Prothrombin Time (Patient) 10.6 s 9.6-12.3 [facility] ([facility]) CHEST PAIN, SOB Inr 1.0 0.9-1.1 [facility] CHEST PAIN, SOB aPTT.lupus sensitive (LA screen) 26.7 s 22.7-31.6 [facility] ([facility]) CHEST PAIN, SOB ID Date Data Source [id number] 09/22/2020 10:20:00 AM EST [facility] ([facility]) Name Value Range Interpretation Code Description Data Natalie rce(s) Supporting Document(s) Troponin Laboratory test result [facility]) Natriuretic peptide.B prohormone N-Terminal [Mass/volu me] in Serum or Plasma 162.00 [facility] ([employer] [facility]) ID Date Data Source [id number] 09/22/2020 10:20:00 AM EST [facility] ([facility]) Name Value Range Interpretation Code Description Data Natalie rce(s) Supporting Document(s) Albumin [Mass/volume] in Serum or Plasma 3.1 [facility] ([facility]) Alanine aminotransferase [Enzymatic activity/volume] in Serum or Pl asma 47 [facility] ([facility]) Chloride [Moles/volume] in Serum or Plasma 105 [facility] ([facility]) Calcium [Mass/volume] in Serum or Plasma 9.0 [facility] ([facility]) Carbon dioxide, total [Moles/volume] in Serum or Plasma 25 [facility] ([facility]) Alkaline phosphatase [Enzymatic activity/volume] in Serum or Plasma 8 6 [facility] ([facility]) Sodium 139 [facility] ([facility] Potassium [Moles/volume] in Serum or Plasma 4.0 [facility] ([facility]) Protein [Mass/volume] in Serum or Plasma 7.8 [facility] ([facility]) Aspartate aminotransferase [Enzymatic activity/volume] in Serum or Plasma 32 [facility] ([facility]) Urea nitrogen [Mass/volume] in Serum or Plasma 14 [facility] ([facility]) Glucose 374 74-106 [facility] Creatinine For GFR 1.2 [facility] ([facility]) ID Date Data Source [id number] 09/22/2020 10:20:00 AM EST [facility] ([facility]) Name Value Range Interpretation Code Description Data Natalie rce(s) Supporting Document(s) Platelets 203 130-472 [facility] White Blood Count 7.9 4.45-10.71 [facility] ([facility]) Red Blood Count 4.03 4.3-6.1 [facility] ([facility]) Hemoglobin 12.2 13-18 [facility] ([facility]) Hematocrit 36.8 42-52 [facility] ([facility]) ID Date Data Source [id number] 09/22/2020 12:00:00 AM EST [facility] Name Value Range Interpretation Code Description Data Natalie rce(s) Supporting Document(s) SARS-CoV2 Rapid PCR [facility] This lab was ordered by [facility] and reported by [facility]. ID Date Data Source [id number] 09/15/2020 03:53:00 PM EST [facility] ([facility]) Name Value Range Interpretation Code Description Data Natalie rce(s) Supporting Document(s) Microalbumin Urine 2576.5 mg/L 1.3-20.0 [facility] NOTE: DILUTED AND VERIFIED Urine Creatinine 243.6 mg/dL 30.0-125.0 [facility] ([facility]) Microalb/Creat Ratio 1057.7 ug/mg 0.0-30.0 [facility] ([facility]) ID Date Data Source [id number] 09/15/2020 03:53:00 PM EST [facility] ([facility]) Name Value Range Interpretation Code Description Data Natalie rce(s) Supporting Document(s) Urea nitrogen [Mass/volume] in Serum or Plasma 21 mg/dL 7-18 [facility] ([facility]) Glucose [Mass/volume] in Serum or Plasma 345 mg/dL 74-99 [facility] ([facility]) 100-125 mg/dL PRE-DIABETES/FASTING >126 mg/dL DIABETES/FASTING Creatinine 1.3 mg/dL 0.6-1.3 [facility] ([facility]) Potassium [Moles/volume] in Serum or Plasma 3.8 meq/L 3.5-5.1 [facility] ([facility]) Sodium [Moles/volume] in Serum or Plasma 135 meq/L 136-145 [facility] ([facility]) Chloride [Moles/volume] in Serum or Plasma 97 meq/L 98-107 [facility] ([facility]) Carbon dioxide, total [Moles/volume] in Serum or Plasma 28 meq/L 21 -32 [facility] ([facility]) Calcium [Mass/volume] in Serum or Plasma 9.9 mg/dL 8.5-10.1 [facility] ([facility]) Glomerular filtration rate/1.73 sq M pre dicted among non-blacks [Volume Rate/Area] in Serum or Plasma by Creatinine-based formula (MDRD) 54 mL/min [facility] Glomerular filtration rate/1.73 sq M pre dicted among blacks [Volume Rate/Area] in Serum or Plasma by Creatinine-based formula (MDRD) Laboratory test result [facility] <content>CHRONIC KIDNEY DISEASE STAGING PER NKF</content>
<content></content>
<content>STAGE I & II GFR >= 60 NORMAL TO MILDLY DECREASED</content>
<content>STAGE III GFR 30-59 MODERATELY DECREASED</content>
<content>STAGE IV GFR 15-29 SEVERELY DECREASED</content>
<content>STAGE V GFR <15 VERY LITTLE GFR LEFT</content>
<content>ESRD GFR <15 ON HEAVY DUTY PRESS OPERATOR</content>
<content></content> ID Date Data Source [id number] 09/15/2020 03:53:00 PM EST [facility] ([facility]) Name Value Range Interpretation Code Description Data Natalie rce(s) Supporting Document(s) Glucose mean value [Mass/volume] in Blood Estimated fr om glycated hemoglobin 255 mg/dL 60-110 [facility] Hemoglobin A1c/Hemoglobin.total in Blood 10.5 % [facility] Lab Result Notes: Pre-Diabetes 5.7 - 6.4 % Diabetes = or > 6.5% ID Date Data Source [id number] 09/15/2020 03:53:00 PM EST [facility] ([facility]) Name Value Range Interpretation Code Description Data Natalie rce(s) Supporting Document(s) Leukocytes [#/volume] in Blood by Automated count 11.1 x10*3/UL 4.1-1 0.9 [facility] ([facility] Erythrocytes [#/volume] in Blood by Automated count 4.73 x10*6/UL 4.2 0-6.30 [facility] ([facility] Hemoglobin [Mass/volume] in Blood 14.6 g/dL 12.0-18.0 [facility] ([facility] Hematocrit [Volume Fraction] of Blood by Automated count 41.1 % 3 7.0-51.0 [facility] ([facility]) MCV 86.8 fL 80.0-97.0 [facility] ([place] [facility]) MCH 30.9 pg 26.0-32.0 [facility] ([facility]) Erythrocyte distribution width [Ratio] by Automated count 13.4 % 11.6-13.7 [facility] ([facility] MCHC 35.5 g/dL 31.0-38.0 [facility] ([place] [facility]) Platelets [#/volume] in Blood by Automated count 237 x10*3/UL 140-440 [facility] ([facility]) Lymph % 21.0 % 10.0-58.5 [facility] ([place] [facility]) MPV 8.0 FL 7.8-11.0 [facility] [facility]) Mid % 5.6 % 1.7-9.3 [facility] [facility] Neut % 73.4 % 37.0-92.0 [facility] Lymph # 2.3 x10*3/UL 0.6-4.1 [facility] ([facility]) Neut # 8.1 x10*3/UL 2.0-7.8 [facility] ([facility]) Mid # 0.7 x10*3/UL 0.1-0.6 [facility] ([facility]) ID Date Data Source [id number] 09/14/2020 03:39:00 PM EST [facility] [address] [place] [id number] [phone] NAME SEX PT STATUS ACCOUNT NUMBER MAC GROSS [facility] ER [id number] ORDERING PHYSICIAN LOCATION MEDICAL RECORD NO. Reji Bustos MD ER [id number] ATTENDING PHYSICIAN DATE OF DATE OF EXAM/TIME Kalpesh Pollack MD 1950 09/10/201939 TYPE / EXAM Xray Chest One View REASON FOR EXAM abdominal pain COMPARISON: 05/31/2020 FINDINGS: Heart size is stable. The lungs show no acute change.. No pneumothorax is seen. Soft tissue structures are unremarkable. IMPRESSION: No acute disease identifiable. Reported By Holly Quezada MD on 09/14/201538 Signed By Holly Quezada MD on 09/14/20 154 Date Time CC: Kalpesh Pollack M.D.; Holly Quezada MD Techn: PALHE Trans Dt/Tm: Trans by: DT Prt Dt/Tm: 7838-9830: Total DLP = 0.00 mGy-cm Fluoroscopy Time (in secs): Name Value Range Interpretation Code Description Data Natalie rce(s) Supporting Document(s) ID Date Data Source [id number] 09/10/2020 09:52:00 PM EDT [facility] ED Physician Documentation NAME: MAC GROSS : 1950 AGE: 70 MR#: [id number] SERVICE DATE: 09/10/[address]: Reji Bustos MD PRIMARY CARE DR: Kalpesh Pollack M.D. ROOM#: [facility] (Adult, General) General Chief Complaint: GI Stated Complaint: STOMACH PAIN Resident LT, travel outisde home, exposure to hot tubs:: No Time Seen by Provider: 09/10/20 19:35 Source: patient Exam Limitations: clinical condition History of Present Illness Narrative: 70-year-old white male 3-week history of increasing burning cramping epigastric area pain now becoming moderate to more than moderate spite of his Gaviscon and Protonix usage. Has particularly exacerbated in the last 2 days he does have a GI doctor in [place] who scoped him 2 years ago and found GERD but no other pathology according to the patient. No recent vomiting or him this or any melena black stool or hematochezia or any lower abdominal orother abdominal pain other than the above. No fever or chills no chest pain no nosebleeds no shortness of breath or cough no urinary burning or frequency NO musculoskeletal complaint above baseline. No new meds or OTC's etc reView of systems otherwise acutely noncontributory as well PMH is appreciated inclusive of diabetes type 2 and COPD and DJD PSH no abdominal surgical history. , , Past Medical History Past Medical History: Nursing Past Medical History Has Been Reviewed Allergies/Home Meds Allergies Allergy/AdvReac Type Severity Reaction Status Date / Time ciprofloxacin Allergy Severe Rash Verified 09/10/20 19:10 Penicillins Allergy Intermediate Hives Verified 09/10/20 19:10 Sulfa (Sulfonamide Allergy Intermediate Hives Verified 09/10/20 19:10 Antibiotics) levofloxacin [From Levaquin] AdvReac Mild Confusion Verified 09/10/20 19:10 Home Medications Medication Instructions Recorded Confirmed Last Taken Type Bystolic 5 mg PO DAILY 05/27/20 06/08/20 0 08:45 History irbesartan 150 mg PO DAILY 05/27/20 06/08/20 06/08/20 08:48 History levothyroxine 125 mcg PO DAILY 07/06/08/20 06/08/20 05:40 History pantoprazole [Protonix] 40 mg PO DAILY 05/27/20 06/08/20 06/08/20 07:22 History spironolactone 25 mg PO DAILY 05/27/20 06/08/20 06/08/20 08:48 History torsemide 20 mg PO DAILY 05/27/20 06/08/20 06/08/20 08:47 History albuterol sulfate 2 puffs IH QID PRN #18 gm 06/01/20 06/06/20 Unknown Rx budesonide-formoterol [Symbicort] 2 puffs IH BID #10.2 gm 06/01/20 06/06/20 06/01/20 Rx finasteride 5 mg PO DAILY #30 tab 06/01/20 06/08/20 06/08/20 08:48 Rx tamsulosin 0.4 mg PO DAILY #30 cap 06/01/20 06/08/20 06/08/20 09:04 Rx Toujeo Max U-300 SoloStar 100 unit SUBCUT HS 06/06/20 06/06/20 06/04/20 21:00 History insulin lispro [Humalog KwikPen 10 unit SUBCUT TIDWM 06/08/20 06/08/20 06/08/20 07:20 History Insulin] 4 units insulin lispro [Humalog KwikPen See Rx Instructions .ROUTE .COMPLEX 06/08/20 06/08/20 Unknown History Insulin] nitrofurantoin macrocrystal 100 mg PO BID #14 cap 06/08/20 Unknown Rx ciprofloxacin HCl [Cipro] 500 mg PO Q12HR #14 tab 07/20/20 Unknown Rx metronidazole [Flagyl] 500 mg PO Q8H 7 Days #21 tab 07/20/20 Unknown Rx Medication list updated and reviewed:: Yes Pain Assessment Pain Location: as above ER plan Plan of care and ER treatment: Patient encouraged to ask questions about plan and ER treatments and Patient agrees with ER plan of care Plan: see ed orders dc data PMH (from Triage) Patient Medical History PMH Reviewed/Updated as Needed: Yes PMH/PSH from Triage: Medical History (Updated 06/05/20 @ 16:38 by Mikayla Hughes) COPD (chronic obstructive pulmonary disease) (Medical) J44.9 Diabetes mellitus (Medical) E11.9 GERD (gastroesophageal reflux disease) (Medical) K21.9 Hypothyroidism (Medical) E03.9 Hx Drug Resistant Infections Hx MRSA: (Methicillin-resistant Staphylococcus aureus): No Hx VRE (Vancomycin-resistant enterococci): No Hx C.Diff: No Hx CRKP: No Hx Other Resistant Infection?: No Isolation: Standard precautions Hx Recent Travel Out of the country within 10 days (where): No Hx Fever with a rash?: No Nurse screening for coronavirus: Recent Travel outside the No country (where) Has patient exp erienced No coronavirus symptoms Social History Are you in a relationship with/Does anyone hit you, yell/swear at you, steal from you?: No Substance Use Smoking Status: Former smoker Tobacco Use Hx Chewing Tobacco Use: No Vaccination History Hx/Date of Tetanus, Diphtheria Vaccination: Yes Hx/Date of Influenza Vaccination: No Hx/Date of Pneumococcal Vaccination: No PFSH Medical History COPD (chronic obstructive pulmonary disease) Diabetes mellitus GERD (gas troesophageal reflux disease) Hypothyroidism Social History Does the Patient have a Healthcare Proxy: Yes Does Patient have a DNR?: No Does Patient have a Living Will?: No Does the Patient have a MOLST?: No Advance Directives on File or in chart?: No Hx Recent Travel (where): No Smoking Status: Former smoker ROS Review of Systems Constitutional: Denies fever, chills and sweats Eyes: Denies vision change and eye pain ENT: Denies mouth pain, mouth swelling, dental pain, ear pain, nasal pain, throat pain, throat swelling and recent head trauma Respiratory: Denies cough, SOB, stridor, wheezing and hemoptysis Cardiovascular: Denies chest pain, paroxysmal noc dyspnea, dyspnea on exertion, leg cramps w/walking and pain in feet/toes at night Gastrointestinal: Reports abdominal pain, diarrhea, heartburn, reflux/regurg and other (as per hpi ); Denies nausea, vomiting, constipation, hematemesis, black tarry stools, melena, hematochezia, coffee grounds emesis and stomach pain relieved by food Genitourinary-Male: Denies dysuria, frequency, hematuria, retention, urgency and penile discharge Musculoskeletal: Denies neck pain, shoulder pain, arm pain and hand pain Skin/Breasts: Denies rash and pruritus Neurologic: Denies headache, incoordination, change in speech, confusion and abnormal gait Endocrine: Denies Excessive sweating, Intolerance to cold, Polydipsia, Polyuria and Unexplained weight loss Hematological/Lymphatic: Denies easy bleeding Allergic/Immunologic: Denies rash, night sweats, wheals and flare Physical Exam General General appearance: alert, anxious, in distress (mild ) and obese Head Head exam: Present atraumatic, normocephalic and normal inspection Eye Eye exam: Present normal apperance, PERRL and EOMI; Absent scleral icterus Pupils: Present normal accommodation ENT ENT exam: Present normal exam, normal orophraynx, mucous membranes moist and normal external ear exam Neck Neck exam: Present normal inspection and supple; Absent tenderness, meningismus and lymphadenopathy Respiratory Respiratory exam: Present normal lung sounds bilaterally; Absent respiratory distress, chest wall tenderness and prolonged expiratory Cardiovascular Cardiovascular Exam: Present regular rate, normal rhythm, normal heart sounds and no murmur GI/Abdominal GI/Abdominal exam: Present Abd soft, bowel sounds present all quadrents, distended, tenderness (deep palp epig only NO grr), normal bowel sounds and organomegaly (spleen); Absent guarding, rebound, rigid, bruit, hernia and pulsatile mass Rectal Rectal exam: Present deferred exam: Present normal inspection and other (deferred); Absent testicular tenderness Extremities Exam Extremities exam: Present Full ROM without tenderness, capillary refill brisk, capillary refill brisk and pedal edema (tr); Absent tenderness, joint swelling and calf tenderness Back Exam Back exam: Absent tenderness, CVA tenderness (R), CVA tenderness (L), paraspinal tenderness and vertebral tenderness Neurological Exam Neurological exam: Present alert, oriented X3, CN II-XII intact and normal gait; Absent motor sensory deficit Psychiatric Psychiatric exam: Present normal affect and depressed Skin Skin exam: Present warm, dry and intact; Absent rash and cyanosis Vital Signs Vital Signs: Vital Signs 09/10/20 18:50 Temperature 98.3 F Pulse Rate 65 Respiratory Rate 20 Blood Pressure 124/60 O2 Sat by Pulse Oximetry 96 MDM (comprehensive) Lab Data Labs: 09/10/20 19:50 09/10/20 19:50 Laboratory Results Last 24 hours 09/10/20 19:50: WBC 11.3 H, RBC 4.51, Hgb 13.5, Hct 40.4 L, MCV 89.6, MCH 29.9, MCHC 33.4, RDW 13, Plt Count 225, MPV 9.5, Immature Gran % (Auto) 0.4, Neut % (Auto) 78.2 H, Lymph % (Auto) 14.6, Brooke % (Auto) 4.6, Eos % (Auto) 1.8, Baso % (Auto) 0.4, Lymph # (Auto) 1.7, Abs Immat Gran (auto) 0.0, Add Manual Diff Manual diff added, Total Counted 100, Neutrophi ls (Manual) 81 H, Absolute Neutrophils 8.8 H, Lymphocytes (Manual) 15, Monocytes (Manual) 4, Monocytes # 0.5, Absolute Eosinophils 0.2, Absolute Basophils 0.1, Platelet Estimate Appears normal, RBC Morphology Appears normal 09/10/20 19:50: Sodium 134, Potassium 4.4, Chloride 100, Carbon Dioxide 25, Anion Gap 13, BUN 22, Creatinine 1.2 H, GFR Calculation 60, Glucose 311 H, Calcium 9.7, Total Bilirubin 0.3, AST 54 H, ALT 58 H, Alkaline Phosphatase 87, Troponin I Less than 0.015, Serum Total Protein 8.7 H, Albumin 3.2, Amylase 53, Lipase 170 09/10/20 19:50: Lactic Acid 1.9 EKG Data -: EKG Interpreted by Me (60 rsr low volt nsivcd nssts nl axis intervals ) Radiology Data interpreted by me: CXR NAPD COPD Radiology impressions: [facility] [address] [place] [id number] [phone] NAMESEX PT STATUSACCOUNT NUMBER MAC GROSS AM REG [id number] ORDERING PHYSICIANLOCATIONMEDICAL RECORD NO. Reji Bustos [id number] ATTENDING PHYSICIANDATE OF BIRTHDATE OF EXAM/TIME Kalpesh Pollack MD/1939 TYPE / EXAM CT Abd/pel w/o contrast REASON FOR EXAM upper abdom pain 3 weeks Hx divertic dz Clinical History/Indication for Exam: upper abdom pain [address] ABDOMEN AND PELVIS WITHOUT INTRAVENOUS CONTRAST INDICATION: upper abdom pain 3 weeks Hx divertic dz TECHNIQUE: Axial computed tomography images of the abdomen and pelvis without intravenous contrast. Sagittal and coronal reformatted images were created and reviewed. This CT exam was performed using one or more of the following dose reduction techniques: automated exposure control, adjustment of the mA and/or kV according to patient size, and/or use of iterative reconstruction technique. COMPARISON: No relevant prior studies available. FINDINGS: Lung bases: Unremarkable. No mass. No consolidation. ABDOMEN: Liver: Fatty infiltration of the live r. Enlarged spleen at 15 cm. Gallbladder and bile ducts: Unremarkable. No calcified stones. No ductal dilation. Pancreas: No pancreatitis. No gastric lesions identified. No ductal dilation. Spleen: See above. Adrenals: Unremarkable. No mass. Kidneys and ureters: Unremarkable. No obstructing stones. No hydronephrosis. Stomach and bowel: Sigmoid diverticulosis without diverticulitis. No abscess. No obstruction. PELVIS: Appendix: No findings to suggest acute appendicitis. Bladder: Unremarkable. No stones. Reproductive: Unremarkable as visualized. A BDOMEN and PELVIS: Intraperitoneal space: Unremarkable. No free air. No significant fluid collection. Bones/joints: No acute fracture. No dislocation. Soft tissues: Unremarkable. Vasculature: Unremarkable. No abdominal aortic aneurysm. Lymph nodes: Unremarkable. No enlarged lymph nodes. IMPRESSION: 1. Fatty infiltration of the liver. Enlarged spleen at 15 cm. 2. Sigmoid diverticulosis without diverticulitis. No abscess. 3. No pancreatitis. No gastric lesions identified. Automatic exposure control was used as a dose lowering technique. REPORT SIGNATURE ON FILE 09/10/2020 (20:29 Eastern Time ) Signed by: Prieto Brizuela M.D. Reported By Prieto Brizuela MD on 09/10/202028 Signed By Prieto Brizuela MD on 09/10/202028 Date Time CC: Kalpesh Pollack M.D.; Prieto Brizuela MD Techn: PALHETrans Dt/Tm: Trans by: DTPrt Dt/Tm: : Total DLP = 954.00 mGy-cm 002: Total Radiation Dose = 14.3100 mSv Lifetime Dose: 77.9700 mSv Medical Decision Making Free Text/Narative:: 909 pm some min improvment vss Differential Diagnosis Differential Diagnosis: GERD v PUD v dievertic dz v colitis v gastritis v other Critical Care Time Critical Care Time Critical Care Time: Yes ED Critical Care Time - Select One: 31-74 Minutes Total Critical Care Time: 31 Critical Care Time: abdom pain w/u in elderly male Plan Plan Plan: see ED orders DC data Visit Medications Administered ED medications:: Medications Generic Name Dose Route Start Last Admin Trade Name Freq PRN Reason Stop Dose Admin Sodium Chloride 500 mls @ 125 mls/hr 09/10/20 19:43 09/10/20 20:19 Ns 0.9% IV 09/10/20 23:42 125 mls/hr .Q4H ONE Administration Discontinued Medications Generic Name Dose Route Start Last Admin Trade Name Freq PRN Reason Stop Dose Admin Famotidine 20 mg 09/10/20 19:42 09/10/20 20:19 Famotidine 10 Mg/Ml 2 Ml Sdv IVP 09/10/20 19:43 20 mg 1T ONE Administration Discharge Plan Admission/Discharge Dx Primary DC Diagnosis: 1. Abdominal Pain 2. GERD Hx 3. Hx Divertic Dz 4. Hx DM2 / gastroparesis ED Provider: Reji Bustos ED Status: Ready for Discharge Time Seen by Provider: 09/10/20 19:35 Triaged At: 09/10/20 18:36 Condition Condition: Stable Discharge Detail Disposition: Home, Self-Care Med Rec New Prescriptions: No Action torsemide 20 mg Tablet 20 mg PO DAILY RF: 0 pantoprazole [Protonix] 20 mg Tablet,Delayed Release (Dr/Ec) 40 mg PO DAILY RF: 0 irbesartan 150 mg Tablet 150 mg PO DAILY RF: 0 Bystolic 5 mg Tablet 5 mg PO DAILY RF: 0 spironolactone 25 mg tablet 25 mg PO DAILY RF: 0 levothyroxine 125 mcg tablet 125 mcg PO DAILY RF: 0 tamsulosin 0.4 mg Capsule 0.4 mg PO DAILY Qty: 30 RF: 0 finasteride 5 mg Tablet 5 mg PO DAILY Qty: 30 RF: 0 budesonide-formoterol [Symbicort] 80-4.5 mcg/actuation HFA aerosol inhaler 2 puffs IH BID Qty: 10.2 RF: 0 albuterol sulfate 90 mcg/actuation HFA aerosol inhaler 2 puffs IH QID PRN (Reason: shortness of breath or wheezing) Qty: 18 RF: 0 Toujeo Max U-300 SoloStar 300 unit/mL (3 mL) insulin pen 100 unit SUBCUT HS RF: 0 nitrofurantoin macrocrystal 100 mg capsule 100 mg PO BID Qty: 14 RF: 0 insulin lispro [Humalog KwikPen Insulin] 100 unit/mL insulin pen 10 unit SUBCUT TIDWM RF: 0 insulin lispro [Humalog KwikPen Insulin] 100 unit/mL Insulin Pen See Rx Instructions .ROUTE .COMPLEX RF: 0 ciprofloxacin HCl [Cipro] 500 mg tablet 500 mg PO Q12HR Qty: 14 RF: 0 metronidazole [Flagyl] 500 mg tablet 500 mg PO Q8H 7 Days Qty: 21 RF: 0 Discharge Education Printouts: Abdominal Pain (ED) Follow Up Visit/Referrals: Kalpesh Pollack M.D. [Primary Care Provider] - Medications Medication reconciliation performed by provider at discharge: Yes Follow Up Care/Instructions Diet/Activity/Wound Care..: see Dx's Change from Protonix to nexium rx daily and from Gaviscon regular to Gaviscon Advance 6x/d see Dr Oliva in 2 d - call in am see your GI MD in [place] this week for repeat upper endoscopy salty RTED if sx increase or any new ssx or fever or n/v/ or blood stool etc as discussed , , *Discharge Patient* Discharge Orders: Discharge Order (Routine ); Ordered 09/10/20 Ordered By: Reji Bustos Interventions Interventions: ED GI Gastrointestinal Last Done: 09/10/20 19:57 Report Signers: <Electronically signed by Reji Bustos MD> Reji Bustos MD 09/10/203 Reji Bustos MD SIGNATURE DA Report Cosigners: D: SELINA 09/10/202151 T: SELINA 09/10/202151 CC: Kalpesh Pollack M.D. Name Value Range Interpretation Code Description Data Natalie rce(s) Supporting Document(s) ID Date Data Source [id number] 09/13/2020 09:08:00 PM EST [facility] Name Value Range Interpretation Code Description Data Natalie rce(s) Supporting Document(s) Hepatitis B virus surface Ag [Presence] in Serum or Plasma b y Immunoassay NON-REACTIVE [facility] Hepatitis B Core IgM Ab NON-REACTIVE NON-REACTIVE [facility] Virus identified in Unspecified specimen NON-REACTIVE [facility] For additional information, please refer tohttp://[employer]/faq/VAC591(This link is being provided for informational/educational purposes only.)NON-REACTIVE0.07HCV antibody was n on-reactive. There is no laboratoryevidence of HCV infection.In most cases, no further action is required. However,if recent HCV exposure is suspected, a test for HCV RNA(test code 01711) is suggested.For additional information please refer tohttp://[employer]/faq/MXK42v9(This link is being provided for informational/educational purposes only.)THIS TEST WAS PERFORMED AT:[facility]Jazmin ESC[place] Reportable ResultNo Reportable Result Hepatitis C virus Ab [Presence] in Serum or Plasma by Immuno assay NON-REACTIVE [facility] 0.07HCV antibody was non-reactive. There is no laboratoryevidence of HCV infection.In most cases, no further action is required. However,if recent HCV exposure is suspected, a test for HCV RNA(test code 22906) is suggested.For additional information please refer tohttp://[employer]/faq/BPC67e2(This link is being provided for informational/educational purposes only.)THIS TEST WAS PERFORMED AT:[facility] [address] [place] Reportable Result Hepatitis C virus Ab Signal/Cutoff in Serum or Plasma by Imm unoassay 0.07 <1.00 [facility] HCV antibody was non-reactive. There is no laboratoryevidence of HCV infection.In most cases, no further action is required. However,if recent HCV exposure is suspected, a test for HCV RNA(test code 88926) is suggested.For additional information please refer tohttp://education.[employer]/faq/OVI18h1(This link is being provided for informational/educational purposes only.)THIS TEST WAS PERFORMED AT:[facility] [address]CHRISTINE MILLER MD ID Date Data Source [id number] 09/10/2020 08:55:00 PM EDT [facility] ([facility]) Name Value Range Interpretation Code Description Data Natalie rce(s) Supporting Document(s) Hepatitis B virus surface Ag [Presence] in Serum or Pl asma by Immunoassay Laboratory test result 0-0 [facility] ([facility]) STOMACH PAIN Laboratory test finding (navigational concept) Laboratory test result 0-0 [facility] ([facility]) STOMACH PAIN Virus identified in Unspecified specimen Laboratory test result 0-0 [facility] ([facility]) STOMACH PAIN Hepatitis C virus Ab [Presence] in Serum or Plasma by Immunoassay Laboratory test result 0-0 [facility] ([facility] ) STOMACH PAIN Hepatitis C virus Ab Signal/Cutoff in Serum or Plasma by Immunoassay Laboratory test result [facility] ([facility] ) STOMACH PAIN ID Date Data Source [id number] 09/10/2020 08:29:00 PM EDT [facility] [address] [place] [address] [phone] NAME SEX PT STATUS ACCOUNT NUMBER MAC GROSS [facility] [id number] ORDERING PHYSICIAN LOCATION MEDICAL RECORD NO. Reji Bustos MD ER [id number] ATTENDING PHYSICIAN DATE OF DATE OF EXAM/TIME Kalpesh Pollack MD 1950 09/10/201938 TYPE / EXAM CT Abd/pel w/o contrast REASON FOR EXAM upper abdom pain 3 weeks Hx divertic dz Clinical History/Indication for Exam: upper abdom pain [address]ic [address] ABDOMEN AND PELVIS WITHOUT INTRAVENOUS CONTRAST INDICATION: upper abdom pain 3 weeks Hx divertic dz TECHNIQUE: Axial computed tomography images of the abdomen and pelvis without intravenous contrast. Sagittal and coronal reformatted images were created and reviewed. This CT exam was performed using one or more of the following dose reduction techniques: automated exposure control, adjustment of the mA and/or kV according to patient size, and/or use of iterative reconstruction technique. COMPARISON: No relevant prior studies available. FINDINGS: Lung bases: Unremarkable. No mass. No consolidation. ABDOMEN: Liver: Fatty infiltration of the liver. Enlarged spleen at 15 cm. Gallbladder and bile ducts: Unremarkable. No calcified stones. No ductal dilation. Pancreas: No pancreatitis. No gastric lesions identified. No ductal dilation. Spleen: See above. Adrenals: Unremarkable. No mass. Kidneys and ureters: Unremarkable. No obstructing stones. No hydronephrosis. Stomach and bowel: Sigmoid diverticulosis without diverticulitis. No abscess. No obstruction. PELVIS: Appendix: No findings to suggest acute appendicitis. Bladder: Unremarkable. No stones. Reproductive: Unremarkable as visualized. ABDOMEN and PELVIS: Intraperitoneal space: Unremarkable. No free air. No significant fluid collection. Bones/joints: No acute fracture. No dislocation. Soft tissues: Unremarkable. Vasculature: Unremarkable. No abdominal aortic aneurysm. Lymph nodes: Unremarkable. No enlarged lymph nodes. IMPRESSION: 1. Fatty infiltration of the liver. Enlarged spleen at 15 cm. 2. Sigmoid diverticulosis without diverticulitis. No abscess. 3. No pancreatitis. No gastric lesions identified. Automatic exposure control was used as a dose lowering technique. REPORT SIGNATURE ON FILE 09/10/2020 (20:29 Eastern Time ) Signed by: Prieto Brizuela M.D. Reported By Prieto Brizuela MD on 09/10/202028 Signed By Prieto Brizuela MD on 09/10/202028 Date Time CC: Kalpesh Pollack M.D.; Prieto Brizuela MD Techn: [email or web address] Trans Dt/Tm: Trans by: DT Prt Dt/Tm: : Total DLP = 954.00 mGy-cm : Total Radiation Dose = 14.3100 mSv Lifetime Dose: 77.9700 mSv Name Value Range Interpretation Code Description Data Natalie rce(s) Supporting Document(s) ID Date Data Source [id number] 09/15/2020 07:56:00 PM [facility] Special Instructions: Lab may order repe at test if initial test elevatedPhysician If elevated, reflex second test in 4-6 hrs @09/10/20 2011: MANUAL DIFF added. RFLXG = DIFF. @09/10/20 2011: MANUAL DIFF added. RFLXG = DIFF. Name Value Range Interpretation Code Description Data Natalie rce(s) Supporting Document(s) Bacteria identified in Blood by Culture [facility] NO GROWTH AFTER 5 DAYS ID Date Data Source [id number] [facility]: Lab may order repe at test if initial test elevatedPhysician If elevated, reflex second test in 4-6 hrs @09/10/20 2011: MANUAL DIFF added. RFLXG = DIFF. @09/10/20 2011: MANUAL DIFF added. RFLXG = DIFF. Name Value Range Interpretation Code Description Data Natalie rce(s) Supporting Document(s) Lactic w Rfx (if elevated) 1.9 mmol/L 0.5-2.2 N [facility] ID Date Data Source [id number] 09/10/2020 08:33:00 PM [facility] Special Instructions: Lab may order repe at test if initial test elevatedPhysician If elevated, reflex second test in 4-6 hrs @09/10/20 2011: MANUAL DIFF added. RFLXG = DIFF. @09/10/20 2011: MANUAL DIFF added. RFLXG = DIFF. Name Value Range Interpretation Code Description Data Natalie rce(s) Supporting Document(s) Urea nitrogen [Mass/volume] in Serum or Plasma 22 mg/dL 9-23 N [facility] Sodium [Moles/volume] in Serum or Plasma 134 mmol/L 132-146 N [facility] Potassium [Moles/volume] in Serum or Plasma 4.4 mmol/L 3.5-5.5 [facility] Chloride [Moles/volume] in Serum or Plasma 100 mmol/L 99-109 N [facility] Carbon dioxide, total [Moles/volume] in Serum or Plasma 25 mmol/L 20 -31 N [facility] Anion gap in Serum or Plasma 13 mmol/L 8-16 N L [facility] Glucose [Mass/volume] in Serum or Plasma 311 mg/dL 74-106 Above high normal [facility] Creatinine 1.2 mg/dL 0.5-1.1 Above high normal [facility] Glomerular filtration rate/1.73 sq M.pre dicted [Volume Rate/Area] in Serum or Plasma 60 ml/min ABOVE 60 [facility] ital Alanine aminotransferase [Enzymatic acti vity/volume] in Serum or Plasma by With P-5'-P 58 U/L 10-49 Above high normal [facility] Aspartate aminotransferase [Enzymatic ac tivity/volume] in Serum or Plasma by With P-5'-P 54 U/L 0-33 Above high normal [facility] Alkaline phosphatase [Enzymatic activity/volume] in Serum or Plasma 87 U/L 45-129 N [facility] Calcium [Mass/volume] in Serum or Plasma 9.7 mg/dL 8.5-10.1 N [facility] Bilirubin.total [Mass/volume] in Serum or Plasma 0.3 mg/dL 0.3-1.2 N [facility] Albumin [Mass/volume] in Serum or Plasma by Bromocresol purple (BCP) dye binding method 3.2 g/dL 3.2-4.8 N [facility] ital Protein [Mass/volume] in Serum or Plasma 8.7 g/dL 5.7-8.2 Above [facility] normal [facility] ID Date Data Source [id number] 09/10/2020 08:36:00 PM EDT [facility] Special Instructions: Lab may order repe at test if initial test elevatedPhysician If elevated, reflex second test in 4-6 hrs @09/10/20 2011: MANUAL DIFF added. RFLXG = DIFF. @09/10/202010: MANUAL DIFF added. RFLXG = DIFF. Name Value Range Interpretation Code Description Data Natalie rce(s) Supporting Document(s) Leukocytes [#/volume] in Blood by Automated count 11.3 10*3/uL 4.45-10.71 Above high normal [facility] Erythrocytes [#/volume] in Blood by Automated count 4.51 10*6/uL 4.3- 6.1 N [facility] Hemoglobin [Moles/volume] in Blood 13.5 g/dL 13-18 N [facility] Hematocrit [Volume Fraction] of Blood by Automated count 40.4 % 42-52 Below low normal [facility] Erythrocyte mean corpuscular volume [Ent itic volume] in Cord blood by Automated count 89.6 fL 80-96 N [facility] ital Erythrocyte mean corpuscular hemoglobin [Entitic mass] by Automated count 29.9 pg 27-31 [facility] Erythrocyte mean corpuscular hemoglobin concentration [Mass/volume] in Cord blood 33.4 g/dL 33-37 N [facility] ital Erythrocyte distribution width [Entitic volume] by Automated count 13 % 11-15 N [facility] Platelets [#/volume] in Blood by Automated count 225 10*3/uL 130-472 N [facility] Platelet mean volume [Entitic volume] in Blood 9.5 fL 9.1-13.1 N [facility] Neutrophils/100 leukocytes in Blood by Automated count 78.2 % 41-77 Above high normal [facility] Neutrophils [#/volume] in Blood by Automated count 8.8 U 1.7-7.6 Above high normal [facility] Lymphocytes/100 leukocytes in Blood by Automated count 14.6 % 14- 46 N [facility] Lymphocytes [#/volume] in Blood by Automated count 1.7 U 0.6-4.6 N [facility] Monocytes/100 leukocytes in Blood by Automated count 4.6 % 4-12 N [facility] Monocytes [#/volume] in Blood by Automated count 0.5 U 0.2-1.2 N [facility] Eosinophils/100 leukocytes in Blood by Automated count 1.8 % 0-7 N [facility] Eosinophils [#/volume] in Blood by Automated count 0.2 U 0.0-0.5 N [facility] Basophils/100 leukocytes in Blood by Automated count 0.4 % 0.4-1 .3 N [facility] Basophils [#/volume] in Blood by Automated count 0.1 U 0.0-0.2 [facility] NUCLEATED RED BLOOD CELL 0 % [facility] NUCLEATED RED BLOOD CELL# [address] [facility] Immature granulocytes [Presence] in Blood by Automated count 0-2 N [facility] Immature granulocytes [#/volume] in Blood by Automated count 0.0 U 0-0.1 N [facility] Manual Differential panel - Blood Manual Diff Added [facility] ID Date Data Source [id number] 09/10/2020 08:33:00 PM EDT [facility] Special Instructions: Lab may order repe at test if initial test elevatedPhysician If elevated, reflex second test in 4-6 hrs @09/10/20 2011: MANUAL DIFF added. RFLXG = DIFF. @09/10/20 2011: MANUAL DIFF added. RFLXG = DIFF. Name Value Range Interpretation Code Description Data Natalie rce(s) Supporting Document(s) Amylase [Enzymatic activity/volume] in Serum or Plasma 53 U/L 30- 118 N [facility] ID Date Data Source [id number] 09/10/2020 08:36:00 PM EDT [facility] Special Instructions: Lab may order repe at test if initial test elevatedPhysician If elevated, reflex second test in 4-6 hrs @09/10/20 2011: MANUAL DIFF added. RFLXG = DIFF. @09/10/20 2011: MANUAL DIFF added. RFLXG = DIFF. Name Value Range Interpretation Code Description Data Natalie rce(s) Supporting Document(s) Cells counted [#] 100 [facility] Neutrophils [#/volume] in Blood by Manual count 81 % 41-77 Above high normal [facility] Lymphocytes [#/volume] in Blood by Manual count 15 % 14-46 N [facility] Monocytes [#/volume] in Blood by Manual count 4 % 4-12 N [facility] Platelets [#/volume] in Blood by Estimate APPEARS NORMAL NORMAL [facility] Morphology [Interpretation] in Blood Narrative APPEARS NORMAL NORMAL [facility] ID Date Data Source [id number] 09/10/2020 08:33:00 PM EDT [facility] Special Instructions: Lab may order repe at test if initial test elevatedPhysician If elevated, reflex second test in 4-6 hrs @09/10/20 2011: MANUAL DIFF added. RFLXG = DIFF. @09/10/20 2011: MANUAL DIFF added. RFLXG = DIFF. Name Value Range Interpretation Code Description Data Natalie rce(s) Supporting Document(s) Lipase [Enzymatic activity/volume] in Serum or Plasma 170 U/L 73-3 93 N [facility] ID Date Data Source [id number] 09/10/2020 08:33:00 PM EDT [facility] Special Instructions: Lab may order repe at test if initial test elevatedPhysician If elevated, reflex second test in 4-6 hrs @09/10/20 2011: MANUAL DIFF added. RFLXG = DIFF. @09/10/202010: MANUAL DIFF added. RFLXG = DIFF. Name Value Range Interpretation Code Description Data Natalie rce(s) Supporting Document(s) Troponin I.cardiac [Mass/volume] in Serum or Plasma Less Than 0.015 0.00-0.09 [facility] Less than 0.09 NG/ML Negative0.10 - 0.77 NG/ML High Risk0.78 NG/ML or Greater PositiveThe WHO defined the cutoff (definition for diagnosis of GA)for this method as 0.78 ng/ml. ID Date Data Source [id number] 09/10/2020 07:50:00 PM EDT [facility] ([facility]) Name Value Range Interpretation Code Description Data Natalie rce(s) Supporting Document(s) Bacteria identified in Blood by Culture Laboratory test result [facility] ([facility]) NO GROWTH AFTER 5 DAYS ID Date Data Source [id number] 09/10/2020 07:50:00 PM EDT [facility] ([facility]) Name Value Range Interpretation Code Description Data Natalie rce(s) Supporting Document(s) Cells counted [#] 100 [facility] ([facility]) Neutrophils [#/volume] in Blood by Manual count 81 % 41-77 [facility] ([facility]) Lymphocytes [#/volume] in Blood by Manual count 15 % 14-46 [facility] ([facility]) Monocytes [#/volume] in Blood by Manual count 4 % 4-12 [facility] ([facility]) Platelets [#/volume] in Blood by Estimate Laboratory test result [facility] ([facility]) Morphology [Interpretation] in Blood Narrative Laboratory test result [facility] ([facility]) ID Date Data Source [id number] 09/10/2020 07:50:00 PM EDT [facility] Name Value Range Interpretation Code Description Data Natalie rce(s) Supporting Document(s) Amylase [Enzymatic activity/volume] in Serum or Plasma 53 U/L 30- 118 [facility] ([facility]) Lipoprotein lipase [Enzymatic activity/volume] in Serum or P lasma 170 U/L 73-393 [facility] ([facility]) Troponin I.cardiac [Mass/volume] in Serum or Plasma Laborato ry test result 0.00-0.09 [facility] ([facility]) Less than 0.09 NG/ML Negative 0.10 - 0.77 NG/ML High Risk 0.78 NG/ML or Greater Positive The WHO defined the cutoff (definition for diagnosis of GA) for this method as 0.78 ng/ml. ID Date Data Source [id number] 09/10/2020 07:50:00 PM EDT [facility] Name Value Range Interpretation Code Description Data Natalie rce(s) Supporting Document(s) Urea nitrogen [Mass/volume] in Serum or Plasma 22 mg/dL 9-23 [facility] ([facility]) Sodium [Moles/volume] in Serum or Plasma 134 mmol/L 132-146 [facility] ([facility]) Potassium [Moles/volume] in Serum or Plasma 4.4 mmol/L 3.5-5.5 [facility] ([facility]) Chloride [Moles/volume] in Serum or Plasma 100 mmol/L 99-109 [facility] ([facility]) Carbon dioxide, total [Moles/volume] in Serum or Plasma 25 mmol/L 20 -31 [facility] ([facility]) Anion gap in Serum or Plasma 13 mmol/L 8-16 M [facility] ([facility]) Glucose [Mass/volume] in Serum or Plasma 311 mg/dL 74-106 [facility] ([facility]) Creatinine 1.2 mg/dL 0.5-1.1 [facility] Glomerular filtration rate/1.73 sq M.pre dicted [Volume Rate/Area] in Serum or Plasma 60 [facility] Alanine aminotransferase [Enzymatic acti vity/volume] in Serum or Plasma by With P-5'-P 58 U/L 10-49 [facility] ([facility]) Aspartate aminotransferase [Enzymatic ac tivity/volume] in Serum or Plasma by With P-5'-P 54 U/L 0-33 [facility] ([facility]) Alkaline phosphatase [Enzymatic activity/volume] in Serum or Plasma 87 U/L 45-129 [facility] Calcium [Mass/volume] in Serum or Plasma 9.7 mg/dL 8.5-10.1 [facility] ([facility]) Bilirubin.total [Mass/volume] in Serum or Plasma 0.3 mg/dL 0.3-1.2 [facility] Albumin [Mass/volume] in Serum or Plasma by Bromocresol purple (BCP) dye binding method 3.2 g/dL 3.2-4.8 [facility] ([facility]) Protein [Mass/volume] in Serum or Plasma 8.7 g/dL 5.7-8.2 [facility] ID Date Data Source [id number] 09/10/2020 07:50:00 PM EDT [facility] Name Value Range Interpretation Code Description Data Natalie rce(s) Supporting Document(s) Lactate [Mass/volume] in Serum or Plasma 1.9 mmol/L 0.5-2.2 [facility] Special Instructions: Lab may order repe at test if initial test elevated Physician If elevated, reflex second test in 4-6 hrs ID Date Data Source [id number] 09/10/2020 07:50:00 PM EDT [facility] Name Value Range Interpretation Code Description Data Natalie rce(s) Supporting Document(s) Leukocytes [#/volume] in Blood by Automated count 11.3 10*3/uL 4.45-1 0.71 [facility] Erythrocytes [#/volume] in Blood by Automated count 4.51 10*6/uL 4.3- 6.1 [facility] Hemoglobin [Moles/volume] in Blood 13.5 g/dL 13-18 [facility] ([facility]) Hematocrit [Volume Fraction] of Blood by Automated count 40.4 % 4 2-52 [facility] ([facility]) Erythrocyte mean corpuscular volume [Ent itic volume] in Cord blood by Automated count 89.6 fL 80-96 [facility] Erythrocyte mean corpuscular hemoglobin [Entitic mass] by Automated count 29.9 pg 27-31 [facility] ([facility] ) Erythrocyte mean corpuscular hemoglobin concentration [Mass/volume] in Cord blood 33.4 g/dL 33-37 [facility] Erythrocyte distribution width [Entitic volume] by Automated count 13 % 11-15 [facility] ([facility]) Platelets [#/volume] in Blood by Automated count 225 10*3/uL 130-472 [facility] ([facility]) Platelet mean volume [Entitic volume] in Blood 9.5 fL 9.1-13.1 [facility] ([facility]) Neutrophils/100 leukocytes in Blood by Automated count 78.2 % 41- 77 [facility] ([facility]) Neutrophils [#/volume] in Blood by Automated count 8.8 U 1.7-7.6 [facility] ([facility]) Lymphocytes/100 leukocytes in Blood by Automated count 14.6 % 14- 46 [facility] ([facility]) Lymphocytes [#/volume] in Blood by Automated count 1.7 U 0.6-4.6 [facility] ([facility]) Monocytes/100 leukocytes in Blood by Automated count 4.6 % 4-12 [facility] ([facility]) Monocytes [#/volume] in Blood by Automated count 0.5 U 0.2-1.2 [facility] ([facility]) Eosinophils/100 leukocytes in Blood by Automated count 1.8 % 0-7 [facility] ([facility]) Eosinophils [#/volume] in Blood by Automated count 0.2 U 0.0-0.5 [facility] ([facility]) Basophils/100 leukocytes in Blood by Automated count 0.4 % 0.4-1 .3 [facility] ([facility]) Basophils [#/volume] in Blood by Automated count 0.1 U 0.0-0.2 [facility] ([facility]) Nucleated Red Blood Cell 0 % [facility] ([facility]) Immature granulocytes [Presence] in Blood by Automated count 0.4 0-2 [facility] ([facility]) Laboratory test finding (navigational concept) 0 U [facility] Immature granulocytes [#/volume] in Blood by Automated count 0.0 U 0-0.1 [facility] Manual Differential panel - Blood Laboratory test result [facility] Manual Diff Added Procedure Social History Code Duration Value Status Description Data Source(s ) Smoking 06/11/2021 12:00:00 AM EDT Patient is a former smoker completed Patient is a former smoker [facility]) 04/22/2021 12:40:21 PM EDT Former smoker completed Former smoker [facility] Smoking 04/22/2021 12:40:00 PM EDT Former smoker completed Former smoker [facility] Smoking 03/01/2021 12:00:00 AM EDT Patient is a former smoker completed Patient is a former smoker [facility] ([facility], ) Smoking 03/01/2021 12:00:00 AM EDT Patient has never smoked co mpleted Patient has never smoked [facility] ([facility], ) 09/22/2020 07:58:44 PM EST Former smoker completed Former smoker [facility] Smoking 09/22/2020 07:58:00 PM EST Former smoker completed Former smoker [facility] 09/10/2020 10:01:54 PM EDT Former smoker completed Former smoker [facility] Smoking 09/10/2020 10:01:00 PM EDT Former smoker completed Former smoker [facility] Vital Signs ID Date Data Source [id number] Name Value Range Interpretation Code Description Data Source(s) Systolic blood pressure 118 mm[Hg] 118 mm[Hg] M [facility] ([facility], ) Diastolic blood pressure 78 mm[Hg] 78 mm[Hg] [facility], ) Heart rate 85 /min 85 /min [facility] ([facility], ) Oxygen saturation in Arterial blood by Pulse oximetry 95 % 95 % [facility], ) Body height 71.5 [in_i] 71.5 [in_i] [facility] ([facility]) 5'11.50" Body weight 289.00 [lb_av] 289.00 [lb_av] [facility] ([facility]) Body mass index (BMI) [Ratio] 39.7 kg/m2 39.7 k g/m2 [facility] ([facility]) Leona body weight 172 [lb_av] 172 [lb_av] [facility] ([facility]) Body weight 131.090 kg 131.090 kg [facility] ([facility]) Body surface area Derived from formula 2.48 m2 2.48 m2 [facility] Body weight 285.00 [lb_av] 285.00 [lb_av] [facility] ([facility]) Body height 71 [in_i] 71 [in_i] [facility] 5'11" Body mass index (BMI) [Ratio] 39.7 kg/m2 39.7 k g/m2 [facility] ([facility]) Heart rate 55 /min 55 /min [facility] ([facility] Systolic blood pressure--sitting 124 mm[Hg] 124 mm[Hg] [facility] ([facility]) Ra, large cuff Diastolic blood pressure--sitting 72 mm[Hg] 72 mm[Hg] [facility] ([facility]) Ra, large cuff Body mass index (BMI) [Ratio] 39.6 kg/m2 39.6 k g/m2 [facility] ([facility]) Body weight 292.00 [lb_av] 292.00 [lb_av] [facility] ([facility]) Systolic blood pressure 144 mm[Hg] 144 mm[Hg] M [facility] ([facility]) Diastolic blood pressure 82 mm[Hg] 82 mm[Hg] [facility] ([facility]) Heart rate 78 /min 78 /min [facility] ([facility]) Body height 72 [in_i] 72 [in_i] [facility] ([facility]) 6'0" Oxygen saturation in Arterial blood by Pulse oximetry 97 % 97 % [facility] ([facility]) Body weight 131.090 kg 131.090 kg [facility]) Body surface area Derived from formula 2.48 m2 2.48 m2 [facility] ([facility]) Body mass index (BMI) [Ratio] 39.7 kg/m2 39.7 k g/m2 [facility] ([facility]) Leona body weight 172 [lb_av] 172 [lb_av] [facility] ([facility]) Oxygen saturation in Arterial blood by Pulse oximetry 97 % 97 % [facility] ([facility]) Body height 71.5 [in_i] 71.5 [in_i] [facility] ([facility]) 5'11.50" Body weight 289.00 [lb_av] 289.00 [lb_av] [facility] ([facility]) Oxygen saturation in Arterial blood by Pulse oximetry 97 % 97 % [facility] ([facility]) Body height 71.5 [in_i] 71.5 [in_i] [facility] ([facility]) 5'11.50" Body weight 289.00 [lb_av] 289.00 [lb_av] [facility] ([facility]) Body mass index (BMI) [Ratio] 39.7 kg/m2 39.7 k g/m2 [facility] ([facility]) Systolic blood pressure 140 mm[Hg] 140 mm[Hg] [facility] Diastolic blood pressure 70 mm[Hg] 70 mm[Hg] [facility] ([facility]) Heart rate 62 /min 62 /min [facility] ([facility]) Leona body weight 172 [lb_av] 172 [lb_av] [facility] ([facility]) Body weight 131.090 kg 131.090 kg [facility] ([facility]) Body surface area Derived from formula 2.48 m2 2.48 m2 [facility] ([facility]) Diastolic blood pressure 80 mm[Hg] 80 mm[Hg] [facility] Heart rate 63 /min 63 /min [facility] ([facility]) Body mass index (BMI) [Ratio] 40.7 kg/m2 40.7 k g/m2 [facility] ([facility]) Body weight 132.451 kg 132.451 kg [facility]) Body temperature 97.0 [degF] 97.0 [degF] [facility] ([facility]) Body height 71 [in_i] 71 [in_i] [facility] 5'11" Body weight 292.00 [lb_av] 292.00 [lb_av] [facility] ([facility]) Systolic blood pressure 140 mm[Hg] 140 mm[Hg] M [facility] ([facility]) Heart rate 60 /min 60 /min [facility] ([facility]) Body height 72 [in_i] 72 [in_i] [facility] ([facility]) 6'0" Body weight 288.00 [lb_av] 288.00 [lb_av] [facility] ([facility]) Oxygen saturation in Arterial blood by Pulse oximetry 98 % 98 % [facility] ([facility]) Body mass index (BMI) [Ratio] 39.1 kg/m2 39.1 k g/m2 [facility] ([facility]) Systolic blood pressure 142 mm[Hg] 142 mm[Hg] [facility]) Diastolic blood pressure 84 mm[Hg] 84 mm[Hg] [facility] ([facility]) Systolic blood pressure 110 mm[Hg] 110 mm[Hg] [facility] ([facility], ) Diastolic blood pressure 70 mm[Hg] 70 mm[Hg] [facility] ([facility], ) Heart rate 63 /min 63 /min [facility] ([facility], ) Oxygen saturation in Arterial blood by Pulse oximetry 96 % 96 % [facility] CENTER ([facility], ) Body height 71.5 [in_i] 71.5 [in_i] [facility], ) 5'11.50" Body weight 288.00 [lb_av] 288.00 [lb_av] MEDEN T ([facility], ) Body mass index (BMI) [Ratio] 39.6 kg/m2 39.6 k g/m2 [facility]) Leona body weight 172 [lb_av] 172 [lb_av] MEDEN T ([facility]) Body weight 130.637 kg 130.637 kg MEDENT ([facility]) Body surface area Derived from formula 2.47 m2 2.47 m2 [facility] Diastolic blood pressure 76 mm[Hg] 76 mm[Hg] MEDENT ([facility]) Heart rate 56 /min 56 /min MED[facility] ([facility]) Body height 72 [in_i] 72 [in_i] MEDENT ([facility]) 6'0" Body weight 290.00 [lb_av] 290.00 [lb_av] [facility] Body mass index (BMI) [Ratio] 39.3 kg/m2 39.3 k g/m2 MED[facility] ([facility]) Oxygen saturation in Arterial blood by Pulse oximetry 96 % 96 % [facility] RM Air Systolic blood pressure 126 mm[Hg] 126 mm[Hg] M EDENT ([facility]) Systolic blood pressure 136 mm[Hg] 136 mm[Hg] [facility] Diastolic blood pressure 72 mm[Hg] 72 mm[Hg] [facility] ([facility]) Body height 72 [in_i] 72 [in_i] [facility] 6'0" Body weight 295.12 [lb_av] 295.12 [lb_av] [facility] Body mass index (BMI) [Ratio] 40.0 kg/m2 40.0 k g/m2 MED[facility] ([facility]) Heart rate 89 /min 89 /min MED[facility] ([facility]) Body mass index (BMI) [Ratio] 41.3 kg/m2 41.3 k g/m2 [facility] ([facility]) Body weight 134.266 kg 134.266 kg [facility] Body temperature 97.9 [degF] 97.9 [degF] MED[facility] ([facility]) Body height 71 [in_i] 71 [in_i] MEDENT ([facility]) 5'11" Body weight 296.00 [lb_av] 296.00 [lb_av] MEDEN T ([facility]) Systolic blood pressure 131 mm[Hg] 131 mm[Hg] M EDENT ([facility]) Diastolic blood pressure 73 mm[Hg] 73 mm[Hg] MED[facility] ([facility]) Body weight 302.00 [lb_av] 302.00 [lb_av] MEDEN T ([facility]) Body height 71 [in_i] 71 [in_i] [facility] ([facility] 5'11" Body mass index (BMI) [Ratio] 42.1 kg/m2 42.1 k g/m2 MED[facility] ([facility]) Heart rate 64 /min 64 /min [facility] Systolic blood pressure--sitting 140 mm[Hg] 140 mm[Hg] MEDENT ([facility]) [place], large cuff Diastolic blood pressure--sitting 82 mm[Hg] 82 mm[Hg] [facility] ([facility]) [place], large cuff Systolic blood pressure 138 mm[Hg] 138 mm[Hg] [facility] Diastolic blood pressure 64 mm[Hg] 64 mm[Hg] [facility] Heart rate 68 /min 68 /min [facility]) Body height 72 [in_i] 72 [in_i] [facility]) 6'0" Body weight 304.00 [lb_av] 304.00 [lb_av] MEDEN T ([facility]) Oxygen saturation in Arterial blood by Pulse oximetry 98 % 98 % [facility]) Body mass index (BMI) [Ratio] 41.2 kg/m2 41.2 k g/m2 [facility]) Body height 71 [in_i] 71 [in_i] MEDENT ([facility]) 5'11" Body weight 298.00 [lb_av] 298.00 [lb_av] MEDEN T ([facility]) Systolic blood pressure 135 mm[Hg] 135 mm[Hg] M EDENT ([facility]) Diastolic blood pressure 85 mm[Hg] 85 mm[Hg] MED[facility] ([facility]) Heart rate 77 /min 77 /min MED[facility] ([facility]) Body mass index (BMI) [Ratio] 41.6 kg/m2 41.6 k g/m2 [facility] ([facility]) Body weight 135.173 kg 135.173 kg [facility]) Body temperature 97.5 [degF] 97.5 [degF] [facility] ([facility]) Systolic blood pressure 124 mm[Hg] 124 mm[Hg] M EDENT ([facility]) Diastolic blood pressure 78 mm[Hg] 78 mm[Hg] MED[facility] ([facility]) Heart rate 82 /min 82 /min MED[facility] ([facility]) Body height 72 [in_i] 72 [in_i] MEDENT ([facility]) 6'0" Body weight 296.00 [lb_av] 296.00 [lb_av] MEDEN T ([facility]) Body mass index (BMI) [Ratio] 40.1 kg/m2 40.1 k g/m2 MED[facility] ([facility]) Body height 71 [in_i] 71 [in_i] [facility] 5'11" Body weight 296.00 [lb_av] 296.00 [lb_av] MEDEN T ([facility]) Systolic blood pressure 137 mm[Hg] 137 mm[Hg] M EDENT ([facility]) Diastolic blood pressure 82 mm[Hg] 82 mm[Hg] [facility] ([facility]) Heart rate 86 /min 86 /min [facility] ([facility]) Body mass index (BMI) [Ratio] 41.3 kg/m2 41.3 k g/m2 [facility] ([facility]) Body weight 134.266 kg 134.266 kg [facility]) Body temperature 97.0 [degF] 97.0 [degF] [facility] ([facility])
--- OUTSIDE RECORDS SUMMARY | 2021-09-20 16:16 | CCD ---
Author Author [facility] Organization [facility] Address Unknown Phone Unavailable Care Team Providers Care Hydroponics Worker Name Role Phone Kiley, L Enma BUILDING CARPENTER HELPER Unavailable Unavailable Kiley, L Enma BUILDING CARPENTER HELPER Unavailable Unavailable Kiley, L Enma BUILDING CARPENTER HELPER Unavailable Unavailable Kiley, L Enma BUILDING CARPENTER HELPER Unavailable Unavailable Kiley, L Enma BUILDING CARPENTER HELPER Unavailable Unavailable Kiley, L Enma BUILDING CARPENTER HELPER Unavailable Unavailable Kiley, L Enma BUILDING CARPENTER HELPER Unavailable Unavailable Kiley, L Enma BUILDING CARPENTER HELPER Unavailable Unavailable Kiley, L Enma BUILDING CARPENTER HELPER Unavailable Unavailable Kiley, L Enma BUILDING CARPENTER HELPER Unavailable Unavailable Kiley, L Enma BUILDING CARPENTER HELPER Unavailable Unavailable Kiley, L Enma BUILDING CARPENTER HELPER Unavailable Unavailable Kiley, L Enma BUILDING CARPENTER HELPER Unavailable Unavailable Kiley, L Enma BUILDING CARPENTER HELPER Unavailable Unavailable Kiley, L Enma BUILDING CARPENTER HELPER Unavailable Unavailable Kiley, L Enma BUILDING CARPENTER HELPER Unavailable Unavailable Kiley, L Enma BUILDING CARPENTER HELPER Unavailable Unavailable Kiley, L Enma BUILDING CARPENTER HELPER Unavailable Unavailable Kiley, L Enma BUILDING CARPENTER HELPER Unavailable Unavailable Kiley, L Enma BUILDING CARPENTER HELPER Unavailable Unavailable Kiley, L Enma BUILDING CARPENTER HELPER Unavailable Unavailable Kiley, L Enma BUILDING CARPENTER HELPER Unavailable Unavailable Kiley, L Enma BUILDING CARPENTER HELPER Unavailable Unavailable Kiley, L Enma BUILDING CARPENTER HELPER Unavailable Unavailable Kiley, L Enma BUILDING CARPENTER HELPER Unavailable Unavailable Cuate SINGH MD Unavailable Unavailable [...] A MELITON MD Unavailable Unavailable PARSHALL, A MELIOTN MD Unavailable Unavailable PARSHALL, A MELITON MD [...] MELITON MD Unavailable Unavailable LePine, M Vania ENERGY AUDITOR Unavailable Unavailable LePine, M Vania ENERGY AUDITOR Unavailable Unavailable LePine, M Vania ENERGY AUDITOR Unavailable Unavailable LePine, M Vania ENERGY AUDITOR Unavailable Unavailable LePine, M Vania ENERGY AUDITOR Unavailable Unavailable LePine, M Vania ENERGY AUDITOR Unavailable Unavailable LePine, M Vania ENERGY AUDITOR Unavailable Unavailable LePine, M Vania ENERGY AUDITOR Unavailable Unavailable LePine, M Vania ENERGY AUDITOR Unavailable Unavailable LePine, M Vania ENERGY AUDITOR Unavailable Unavailable LePine, M Vania ENERGY AUDITOR Unavailable Unavailable LePine, M Vania ENERGY AUDITOR Unavailable Unavailable LePine, M Vania ENERGY AUDITOR Unavailable Unavailable LePine, M Vania ENERGY AUDITOR Unavailable Unavailable LePine, M Vania ENERGY AUDITOR Unavailable Unavailable LePine, M Vania ENERGY AUDITOR Unavailable Unavailable LePine, M Vania ENERGY AUDITOR Unavailable Unavailable LePine, M Vania ENERGY AUDITOR Unavailable Unavailable LePine, M Vania ENERGY AUDITOR Unavailable Unavailable LePine, M Vania ENERGY AUDITOR Unavailable Unavailable LePine, M Vania ENERGY AUDITOR Unavailable Unavailable LePine, M Vania ENERGY AUDITOR Unavailable Unavailable LePine, M Vania ENERGY AUDITOR Unavailable Unavailable LePine, M Vania ENERGY AUDITOR Unavailable Unavailable LePine, M Vania ENERGY AUDITOR Unavailable Unavailable LePine, M Vania ENERGY AUDITOR Unavailable Unavailable LePine, M Vania ENERGY AUDITOR Unavailable Unavailable LePine, M Vania ENERGY AUDITOR Unavailable Unavailable LePine, M Vania ENERGY AUDITOR Unavailable Unavailable LePine, M Vania ENERGY AUDITOR Unavailable Unavailable LePine, M Vania ENERGY AUDITOR Unavailable Unavailable LePine, M Vania ENERGY AUDITOR Unavailable Unavailable LePine, M Vania ENERGY AUDITOR Unavailable Unavailable LePine, M Vania ENERGY AUDITOR Unavailable Unavailable LePine, M Vania ENERGY AUDITOR Unavailable Unavailable LePine, M Vania ENERGY AUDITOR Unavailable Unavailable LePine, M Vania ENERGY AUDITOR Unavailable Unavailable LePine, M Vania ENERGY AUDITOR Unavailable Unavailable LePine, M Vania ENERGY AUDITOR Unavailable Unavailable LePine, M Vania ENERGY AUDITOR Unavailable Unavailable LePine, M Vania ENERGY AUDITOR Unavailable Unavailable LePine, M Vania ENERGY AUDITOR Unavailable Unavailable LePine, M Vania ENERGY AUDITOR Unavailable Unavailable LePine, M Vania ENERGY AUDITOR Unavailable Unavailable LePine, M Vania ENERGY AUDITOR Unavailable Unavailable LePine, M Vania ENERGY AUDITOR Unavailable Unavailable LePine, M Vania ENERGY AUDITOR Unavailable Unavailable LePine, M Vania ENERGY AUDITOR Unavailable Unavailable LePine, M Vania ENERGY AUDITOR Unavailable Unavailable LePine, M Vania ENERGY AUDITOR Unavailable Unavailable LePine, M Vania ENERGY AUDITOR Unavailable Unavailable LePine, M Vania ENERGY AUDITOR Unavailable Unavailable LePine, M Vania ENERGY AUDITOR Unavailable Unavailable LePine, M Vania ENERGY AUDITOR Unavailable Unavailable LePine, M Vania ENERGY AUDITOR Unavailable Unavailable LePine, M Vania ENERGY AUDITOR Unavailable Unavailable Rito PENNINGTON MD Unavailable Unavailable [...] DiBella, Concepcion Mcgrath MD Unavailable Unavailable DiBella, Concepicon Mcgrath MD Unavailable Unavailable DiBella, Concepcion Mcgrath [...] Unavailable Unavailable JakiRafi jackson MD Unavailable Unavailable FairbanksRafi MD Unavailable Unavailable JakiRafi MD Unavailable Unavailable FairbanksRafi MD Unavailable Unavailable FairbanksRafi MD Unavailable Unavailable JakiRafi MD Unavailable Unavailable JakiRafi MD Unavailable Unavailable JakiRafi MD Unavailable Unavailable FairbanksRafi MD Unavailable Unavailable FairbanksRafi jackson MD Unavailable Unavailable JakiRafi jackson MD Unavailable Unavailable FairbanksRfai jackson MD Unavailable Unavailable FairbanksRafi jackson MD Unavailable Unavailable JakiRafi jackson MD Unavailable Unavailable JakiRafi jackson MD Unavailable Unavailable JakiRafi jackson MD Unavailable Unavailable FairbanksRafi jackson MD Unavailable Unavailable JakiRafi jackson MD Unavailable Unavailable JakiRafi jackson MD Unavailable Unavailable JakiRafi jackson MD Unavailable Unavailable JakiRafi jackson MD Unavailable Unavailable JakiRafi jackson MD Unavailable Unavailable FairbanksRafi jackson MD Unavailable Unavailable JakiRafi jackson MD Unavailable Unavailable JakiRafi jackson MD Unavailable Unavailable JakiRafi jackson MD Unavailable Unavailable JakiRafi jackson MD Unavailable Unavailable FairbanksRafi jackson MD Unavailable Unavailable FairbanksRafi jackson MD Unavailable Unavailable JakiRafi jackson MD Unavailable Unavailable FairbanksRafi jackson MD Unavailable Unavailable FairbanksRafi jackson MD Unavailable Unavailable FairbanksRafi jackson MD Unavailable Unavailable FairbanksRafi MD Unavailable Unavailable JakiRafi MD Unavailable Unavailable FairbanksRafi MD Unavailable Unavailable JakiRafi MD Unavailable Unavailable FairbanksRafi jackson MD Unavailable Unavailable JakiRafi jackson MD Unavailable Unavailable FairbanksRafi jackson MD Unavailable Unavailable FairbanksRafi MD Unavailable Unavailable FairbanksRafi MD Unavailable Unavailable FairbanksRafi MD Unavailable Unavailable JakiRafi MD Unavailable Unavailable JakiRafi jackson MD Unavailable Unavailable FairbanksRafi MD Unavailable Unavailable JakiRafi MD Unavailable Unavailable JakiRafi MD Unavailable Unavailable JakiRafi MD Unavailable Unavailable JakiRafi MD Unavailable Unavailable JakiRafi MD Unavailable Unavailable JakiRafi MD Unavailable Unavailable FairbanksRafi MD Unavailable Unavailable FairbanksRafi MD Unavailable Unavailable JakiRafi MD Unavailable Unavailable JakiRafi MD Unavailable Unavailable FairbanksRafi MD Unavailable Unavailable FairbanksRafi MD Unavailable Unavailable JakiRafi MD Unavailable Unavailable FairbanksRafi MD Unavailable Unavailable JakiRafi MD Unavailable Unavailable FairbanksRafi MD Unavailable Unavailable FairbanksRafi MD Unavailable Unavailable JakiRafi MD Unavailable Unavailable FairbanksRafi MD Unavailable Unavailable JakiRafi MD Unavailable Unavailable JakiRafi MD Unavailable Unavailable JakiRafi MD Unavailable Unavailable FairbanksRafi MD Unavailable Unavailable FairbanksRafi MD Unavailable Unavailable FairbanksRafi jackson MD Unavailable Unavailable FairbanksRafi jackson MD Unavailable Unavailable JakiRafi jackson MD Unavailable Unavailable JakiRafi jackson MD Unavailable Unavailable JakiRafi MD Unavailable Unavailable FairbanksRafi jackson MD Unavailable Unavailable FairbanksRafi MD Unavailable Unavailable JakiRafi jackson MD Unavailable Unavailable JakiRafi jackson MD Unavailable Unavailable FairbanksRafi jackson MD Unavailable Unavailable FairbanksRafi jackson MD Unavailable Unavailable FairbanksRafi jackson MD Unavailable Unavailable JakiRafi jackson MD Unavailable Unavailable FairbanksRafi jackson MD Unavailable Unavailable FairbanksRafi jackson MD Unavailable Unavailable FairbanksRafi jackson MD Unavailable Unavailable CHRISTIANO, L JOSE [...] Chente PH.D., M.D. Unavailable Unavailable Silas, C Hcente PH.D., M.D. Unavailable Unavailable Silas, C Chente [...] is protected by Article 27-F of the [facility] Public Health law. If you continue you may have access to information: Regarding HIV / AIDS; Provided by facilities licensed or operated by the [facility] Office of Mental Health; or Provided by the [facility] Office for People With Developmental Disabilities. If such information is present, then the following [facility] mandated warning applies: This information has been [...] law may result in a fine or prison sentence or both. A general authorization for the release of medical or other information is NOT sufficient authorization for further disc losure. Allergies and Adverse Reactions Type Description Substance Reaction Status Data Source(s ) Drug allergy levofloxacin Levofloxacin Confusion [facility] Drug allergy ciprofloxacin Ciprofloxacin Rash [facility] Drug allergy Sulfa (Sulfonamide Antibiotics) Sulfa (Sulfonami de Antibiotics) Hives [facility] l Drug allergy Penicillins Penicillin [facility] Family History Family Member Name Family Member Gender Family Member Status Date o f Status Description Data Source(s) Unknown Male Problem [facility] ([facility]) Unknown Male Problem [facility] ([facility] Unknown Male Problem [facility] ([facility]) Unknown Unknown Problem [facility] ([facility]) Unknown Female Problem [facility] ([facility] ) Encounters Encounter Providers Location Date Indications Data Source(s ) Emergency Attender: Reji Bustos PA-C 01/2021 08:35:00 PM EDT - 08/16/2021 05:15:00 AM EDT VOMITING, WEAK [facility] l VOMITING, WEAK Patient discharged. Outpatient Attender: Enma Magana/Dionicio/Carlos/Yara 06/22/2021 02:00:00 PM EDT [facility] ([facility]) Outpatient Attender: JOSE LUIS RUTH Main Office 06/11/2021 1 1:15:00 AM EDT [facility] ([facility]) Outpatient Attender: Kalpesh Feng 0 06/09/2021 08:40:00 AM EDT MED[facility] ([facility] ) Outpatient Attender: Chente Rosen PH.D., M.D. [place]/Dionicio/Cuate treadwell/Yara 05/04/2021 02:30:00 PM EDT [facility] ([facility] Outpatient Attender: Artur Lee MD Main Office 04/29/2021 10:30:00 AM EDT [facility] ([facility]) Emergency Attender: MELITON SINGH MD 04/22 11:04:00 AM EDT - 04/22/2021 12:43:00 PM EDT COUGH,SOB [facility] l COUGH,SOB Patient discharged. Outpatient Attender: Vania Feng 03/26 11:20:00 AM EDT MED[facility] ([facility] ) Outpatient Attender: Enma Magana/Dionicio/Carlos/Reindl 03/01/2021 03:00:00 PM EDT [facility] ([facility], ) Outpatient Attender: RUPA Feng 0 02/23/2021 01:00:00 PM EDT MED[facility] ([facility] ) Outpatient Attender: Kalpesh Feng 0 01/05/2021 09:20:00 AM EST [facility] ([facility] ) Outpatient Attender: Artur Lee MD Main Office 12/31/2020 08:45:00 AM EST [facility] ([facility]) Outpatient Attender: JOSE LUIS RUTH Main Office 12/11/2020 0 1:30:00 PM EST [facility] ([facility]) Outpatient Attender: Kalpesh Feng 1 12/05/2019 10:00:00 AM EST [facility] ([facility] ) Outpatient Attender: Artur Lee MD Main Office 10/01/2020 10:30:00 AM EST [facility] ([facility]) Emergency Attender: Reji RUTH-CAttender: DANIEL HERNANDEZ MD 09/22/2020 06:13:00 PM EST - 09/22/2020 09:02:00 PM EST CHEST PAIN, SOB [facility] CHEST PAIN, SOB Patient discharged. Outpatient Attender: Kalpesh Feng 1 11/15/2019 01:30:00 PM EST [facility] ([facility] ) Outpatient Attender: Artur Lee MD Main Office 09/15/2020 12:00:00 PM EST [facility] ([facility]) Emergency Attender: Reji Markham: MELITON BRIDGES MD 09/10/2020 07:36:00 PM EDT - 09/10/2020 10:15:00 PM EDT STOMACH PAIN [facility] STOMACH PAIN Patient discharged. Outpatient Attender: Kalpesh Feng 0 07/24/2020 01:45:00 PM EDT [facility] ([facility] ) Emergency Attender: Daniel Dominguez MD 05/2020 01:33:00 PM EDT - 07/20/2020 07:15:00 PM EDT GI ISSUE [facility] GI ISSUE Patient discharged. Immunizations Vaccine Date Status Description Data Source(s) COVID-19 VACCINE [facility] 02/12/2021 12:00:00 AM EDT completed [facility] Vaccine Series Complete: YESThis Data wa s Submitted to [facility] Via [employer]. COVID-19 VACCINE [facility] 01/22/2021 12:00:00 AM EST completed [facility] Vaccine Series Complete: NOThis Data was Submitted to [facility] [employer]. Influenza, injectable, MDCK, preservative free, silvestre valent 09/15/2020 02:52:00 PM EST completed [facility] Medications Medication Brand Name Start Date Product [...] TABLET SOLD: 07/17/2021 [facility] Lactobacillus acidophilus [id number] UNT Oral Capsule Probiot ic Acidophilus 06/10/2021 12:00:00 AM EDT ORAL active [facility] ([facility]) nebivolol 5 MG Oral Tablet [Bystolic] Bystolic 06/10/2021 12:00:00 AM EDT ORAL active [facility] ([facility] gabapentin 100 MG Oral Capsule Gabapentin 06/10/2021 12:00:00 AM EDT ORAL active [facility] ([facility] 10 mg 05/12/2021 12:00:00 AM EDT tablet 30 TAKE ONE TABLET BY MOUTH EVERY DAY NEEDED FOR SLEEP MAXIMUM DAILY DOSE = 1 TAKE ONE TABLET BY MOUTH EVERY DAY NEEDED FOR SLEEP MAXIMUM DAILY DOSE = 1 SOLD: 05/17/2021 [facility] Flonase Allergy Relief Flonase Allergy Relief 05/04/2021 12:00:00 AM E DT active [facility] ([facility] ) Fluticasone Propionate Nasal Cutler 24- Hour Fluticason e Propionate Nasal Cutler 24- Hour 03/26/2021 12:00:00 AM EDT RESPIRATORY [...] Unspecified 02/12/2021 12:00:00 AM EDT completed [facility]) Medication administered onsite BIPAP 01/28/2021 12:00:00 AM EDT active [facility] ([facility], ) Covid-19 vaccine, Unspecified 01/21/2021 12:00:00 AM EST completed [facility]) Medication administered onsite 100 unit/mL [...] 2:00:00 AM EST ORAL active [facility] ( [facility]) gabapentin 300 MG Oral Capsule Gabapentin 01/05/2021 12:00:00 AM EST active [facility] ([facility]) Nitroglycerin 0.4 MG Sublingual Tablet Nitroglycerin 12:00:00 AM EST SUBLINGUAL active MEDEN T ([facility]) 0.4 mg 12/11/2020 12:00:00 AM EST tablet, [...] 12:00:00 AM EST ORAL active M EDENT ([facility]) 10 mg 10/06/2020 12:00:00 AM EST [...] 1 2:00:00 AM EST ORAL active [facility] ([facility]) Administration Of Flu Vaccine 09/15/2020 12:00:00 AM EST completed [facility] Medication administered onsite 1 gram 09/15/2020 12:00:00 AM EST tablet 60 TAKE ONE TABLET BY MOUTH TWICE A DAY TAKE ONE TABLET BY MOUTH TWICE A DAY SOLD: 09/16/2020 [facility] Sucralfate 1000 MG Oral Tablet Sucralfate 09/15/2020 12:00:00 AM EST ORAL active [facility] ([facility]) Gaviscon Advance 09/11/2020 12:00:00 AM EDT a ctive MEDENT ([facility]) Esomeprazole 40 MG Delayed Release Oral Capsule Esomeprazole Magnesium 09/11/2020 12:00:00 AM EDT ORAL completed [facility] ([facility]) 500 mg 07/26/2020 12:00:00 AM EDT tablet 8 TAKE ONE TABLET BY MOUTH TWO TIMES A DAY FOR 4 DAYS TAKE ONE TABLET BY MOUTH TWO TIMES A DAY FOR 4 DAYS SO LD: 07/29/2020 [facility] Ciprofloxacin 500 MG Oral Tablet Ciprofloxacin HCL 07/24/2020 12:00 :00 AM EDT ORAL completed [facility] ([facility]) 10 mg 07/23/2020 12:00:00 AM EDT [...] type / Coverage type Policy ID Covered green party ID Covered green party's relationship to mathew Policy Mathew Plan Information [employer] (Old) Medigap Part B [id number] [id number] [facility] [id number] SP [id number] [employer] (Old) Medigap Part B [id number] [id number] 3.3.227.99.4595.25660.0 Self [id number] [employer] (Old) Medigap Part B [id number] 2.16840.1.95680 3.3.227.99.4595.07009.0 Self [id number] [employer] [id number] SP [id number] [employer] (Old) Medigap Part B [id number] 2.840.1.80052 3.3.227.99.4595.68316.0 Self [id number] [employer] (Old) Medigap Part B [id number] 2.0.1.76158 3.3.227.99.4595.56951.0 Self [id number] [employer] (Old) Medigap Part B [id number] 2.16840.1.68854 3.3.227.99.4595.81382.0 Self [id number] [employer] Ppo Medigap Part B [id number] 2.0.1.218934.3.227.99.4595. 19107.0 Self [id number] [employer] Ppo Medigap Part B [id number] 2.840.1.988244.3.227.99.4595. 80097.0 Self [id number] [employer] Ppo Medigap Part B [id number] 2.16840.1.566484.3.227.99.4595. 76420.0 Self [id number] [employer] (Old) Medigap Part B [id number] Self [id number] [employer] Ppo Medigap Part B [id number] 2.16.840.1.168957.3.227.99.4595. 47377.0 Self [id number] Umr [employer] Ppo Medigap Part B [id number] 2.16.840.1.171100.3.227.9 9.4595.63463.0 Self [id number] [employer] (Old) Medigap Part B [id number] 2.16.840.1.62656 3.3.227.99.4595.73757.0 Self [id number] [employer] (Old) Medigap Part B [id number] 2.16.840.1.41675 3.3.227.99.4595.48858.0 Self [id number] [employer] [id number] SP [id number] [employer] (Old) Medigap Part B [id number] 2.16.840.1.13685 3.3.227.99.[address]95.36520.[id number] [facility] [id number] SP [id number] [employer] (Old) Medigap Part B [id number] 2.16.840.1.31566 3.3.227.99.4595.57066.0 Self [id number] [employer] Ppo Medigap Part B [id number] Self [employer] Ppo Medigap Part B [id number] 2.16.840.1.891034.3.227.99.4595. 92706.0 Self [id number] [employer] Ppo Medigap Part B [id number] 2.16.840.1.136086.3.227.99.4595. 41717.0 Self [id number] [place] [employer] Medigap Part B HEATHER#[id number] Self HEATHER#[id number] [place] [employer] Medigap Part B [id number] Self Medicare Natl Govt Servic Medicare Primary [id number] 2.16.840.1.062254.3.227.99.4595.08532.0 Self [id number] MEDICARE [id number] SP [id number] Medicare Natl Govt Servic Medicare Primary [id number] Self [id number] Medicare Natl Govt Servic Medicare Primary [id number] 2.0.1.734222.3.227.99.4595.62311.0 Self [id number] Medicare Natl Govt Servic Medicare Primary [id number] 2.0.1.547597.3.227.99.4595.59131.0 Self [id number] Medicare Natl Govt Servic Medicare Primary [id number] 2.0.1.802074.3.227.99.4595.55281.0 Self [id number] Medicare - [facility] Medicare Primary [id number] 2.840.1.302792.3.227.99.177.3292.0 Self [id number] Medicare Natl Govt Servic Medicare Primary [id number] 2.840.1.762943.3.227.99.4595.80825.0 Self [id number] Medicare Natl Govt Servic Medicare Primary [id number] 2.840.1.745141.3.227.99.4595.59743.0 Self [id number] MEDICARE [id number] SP [id number] A Medicare Natl Govt Servic Medicare Primary [id number] 2.840.1.074469.3.227.99.4595.79733.0 Self [id number] Medicare Natl Govt Servic Medicare Primary [id number] 2.840.1.519838.3.227.99.4595.28766.0 Self [id number] Medicare Natl Govt Servic Medicare Primary [id number] 2.840.1.175270.3.227.99.4595.88096.0 Self [id number] Medicare Natl Govt Servic Medicare Primary [id number] 2.840.1.918736.3.227.99.4595.07253.0 Self [id number] Medicare Natl Govt Servic Medicare Primary [id number] 2.0.1.578205.3.227.99.4595.56615.0 Self [id number] Medicare - [facility] Medicare Primary [id number] 2.0.1.1138 83.3.227.99.177.3292.0 Self [id number] Medicare Natl Govt Servic Medicare Primary [id number] 2.0.1.094540.3.227.99.4595.46899.0 Self [id number] Medicare Natl Govt Servic Medicare Primary [id number] 2.0.1.970451.3.227.99.4595.15389.0 Self [id number] Medicare Natl Govt Servic Medicare Primary [id number] 2.0.1.870442.3.227.99.4595.18458.0 Self [id number] Medicare Natl Govt Servic Medicare Primary [id number] 2.0.1.731794.3.227.99.4595.81705.0 Self [id number] Medicare Natl Govt Servic Medicare Primary [id number] 2.0.1.375145.3.227.99.4595.14954.0 Self [id number] Medicare Natl Govt Servic Medicare Primary [id number] 2.0.1.448440.3.227.99.4595.00858.0 Self [id number] Medicare Natl Govt Servic Medicare Primary [id number] Self MEDICARE [id number] SP [id number] A Umr Commercial [id number] 2.0.1.994539.3.227.99.177.3292.0 S elf [id number] Umr (New [employer]) Medigap Part B [id number] Self [id number] Medicare (Part B) Medicare Primary [id number] 2.0.1.860620.3.227.99.572.34442.0 Self [id number] Umr Medigap Part B [id number] 2.0.1.345046.3.227.99.572.338 62.0 Self [id number] [employer] PHCS Ppo Medigap Part B [id number] Self [id number] [employer] PHCS Ppo Medigap Part B [id number] 2.0.1.802659.3.227. 99.572.06526.0 Self [id number] Medicare Natl Gov't Servi Medicare Primary [id number] 2.0.1.631234.3.227.99.1767.62551.0 Self [id number] UMR O [id number] S [id number] [employer] PHCS Ppo Medigap Part B [id number] 2.0.1.306927.3.227. 99.572.32393.0 Self [id number] Umr Medigap Part B [id number] 2.0.1.105295.3.227.99.572.338 62.0 Self [id number] Medicare (Part B) Medicare Primary [id number] 2.0.1.922252.3.227.99.572.08194.0 Self [id number] [employer] PHCS Ppo Medigap Part B [id number] 2.840.1.452882.3.227. 99.572.65047.0 Self [id number] Umr Medigap Part B [id number] 2.16.840.1.135555.3.227.99.572.338 62.0 Self [id number] Medicare (Part B) Medicare Primary [id number] 2.0.1.473766.3.227.99.572.68591.0 Self [id number] [employer] Commercial [id number] 2.0.1.935457.3.227.99.177.3292.0 S elf [id number] MEDICARE C [id number] S [id number] [employer] PPO O [id number] S [id number] MEDICARE C [id number] S [id number] A [employer] Medigap Part B [id number] 2.0.1.332155.3.227.99.1767.164 77.0 Self [id number] Medicare Natl Gov't Servi Medicare Primary [id number] 2..1.597088.3.227.99.1767.91344.0 Self [id number] [facility] Medigap Part B [id number] 2..1.005149.3.227.9 9.1767.78169.0 Self [id number] [employer] (pr) Medigap Part B [id number] [place] [id number] Self [employer] Commercial [id number] 2..1.101296.3.227.99.177.3292.0 S elf [id number] MEDICARE [id number] SP [id number] A [employer] PPO S [id number] S [id number] A Medicare (Part B) Medicare Primary [id number] Self [id number] MEDICARE P [id number] S [id number] [employer] Medigap Part B [id number] ..1.540070.3.227.99.1767.164 77.0 Self [id number] Medicare Natl Gov't Servi Medicare Primary [id number] ..1.643651.3.227.99.1767.66898.0 Self [id number] r Medigap Part B [id number] Self [id number] MEDICARE [id number] [employer] Medigap Part B [id number] ..[id number] 7.0 Self [id number] Medicare [place] Medicare Primary [id number] 2..[id number] Self 0 [id number] [employer] Med[employer]ap Part B [id number] ..[id number] 7.0 Self [id number] [place] Medicare Primary [id number] ..[id number] Self 0 [id number] [employer] Med[employer]ap Part B [id number] 2..[id number] 7.0 Self [id number] [place] Medicare Primary [id number] ..[id number] Self 0 [id number] [employer] Med[employer]ap Part B [id number] 2..[id number] 7.0 Self [id number] Medicare [place] Medicare Primary [id number] [id number] Self 0 [id number] [employer] Med[employer] Part B [id number] 7.0 Self [id number] Medicare Upstate/[facility] Medicare Primary [id number] Self 0 [id number] [employer] Med[employer]ap Part B [id number] 7.0 Self [id number] Medicare [place] Medicare Primary [id number] [id number] Self 0 [id number] [employer] Med[employer]ap Part B [id number] [id number] 7.0 Self [id number] Medicare [place]/[facility] Medicare Primary [id number] Self 0 [id number] [employer] Med[employer]ap Part B [id number] 7.0 Self [id number] Medicare [place]/[facility] Medicare Primary [id number] [id number] Self 0 [id number] [employer] Med[employer]ap Part B [id number] 7.0 Self [id number] Medicare [place]/[facility] Medicare Primary [id number] Self 0 [id number] [employer] PHCS Ppo Medigap Part B [id number] Self [id number] Medicare (Part B) Medicare Primary [id number] [id number] Self 6 [id number] Medicare (Part B) Medicare Primary [id number] Self [id number] [employer] Medigap Part B [id number] [facility] [id number] SP [id number] Umr Medigap Part B [id number] [id number] 62.0 Self [id number] Medicare [place] Medicare Primary [id number] Self [employer] PHCS Ppo Medigap Part B [id number] [id number]. [id number] Self [id number] r Medigap Part B [id number] Self [id number] Medicare (Part B) Medicare Primary [id number] [id number] Self [id number] [employer] PHCS Ppo Medigap Part B [id number] 2.0.1.306562.3.227. [id number] Self [id number] Umr Medigap Part B [id number] [id number] 62.0 Self [id number] Medicare (Part B) Medicare Primary [id number] [id number] Self [id number] [facility] [id number] SP [id number] [employer] PHCS Ppo Medigap Part B [id number] 2.16.840.1.387116.3.227. [id number] Self [id number] Umr Medigap Part B [id number] [id number] 62.0 Self [id number] [facility] Ppo Medigap Part B [id number] [id number]. [id number] Self [id number] Medicare (Part B) Medicare Primary [id number] [id number] Self 6 [id number] Umr Medigap Part B [id number] 62.0 Self [id number] Problems, Conditions, and Diagnoses Code Display Name Description Problem Type Effective Dates Data Source(s) H91.93 Hearing loss Hearing loss Problem 05/04/2021 12:00:00 A M EDT [facility] ([facility], ) H93.13 Bilateral tinnitus Bilateral tinnitus Problem 12:00:00 AM EDT [facility] ([facility], ) R42 Dizziness and giddiness Dizziness and giddiness Proble m 05/04/2021 12:00:00 AM EDT [facility] ([facility]) J31.0 Chronic rhinitis Chronic rhinitis Problem 05/04/2021 12 :00:00 AM EDT [facility] ([facility]) [id number] Essential hypertension Essential hypertension Problem 05/03/2021 12:00:00 AM EDT [facility] ([facility]) R07.2 Precordial pain Precordial pain Problem 12/11/2020 12:0 0:00 AM EST [facility] ([facility]) [id number] Abdominal pain Abdominal pain Problem 09/15/2020 12:00: 00 AM EST [facility] ([facility]) Surgeries/Procedures Procedure Description Date Indications Data Source(s) Spirometry 06/22/2021 12:00:00 AM EDT M [facility] ([facility], ) OFFICE OUTPATIENT VISIT 25 MINUTES 06/22[facility] ROUTINE ECG W/LEAST 12 LDS W/I&R 06/11/2021 12:00: 00 AM [facility] OFFICE OUTPATIENT VISIT 25 MINUTES 06/11/2021 12:00:00 AM EDT [facility] ([facility]) OFFICE OUTPATIENT VISIT 25 MINUTES 06/09/2021 12:00:00 AM EDT [facility] ([facility]) Chronic Care MGMT 20 Mins Clinical Staff Time Per Calendar M [facility] 05/11/2021 [facility] OFFICE OUTPATIENT NEW 45 MINUTES 05/04/2021 12:00:00 A M [facility] ([facility]) Complex Chronic Care Management SVC 1St 60 Min 021 [facility] Complex Chronic Care MGMT Service Ea Addl 30 Min 04/06 [facility] Measure Blood Oxygen Level Continuous Overnight Monitor 04/06/2021 [facility] Jane Cre SRV W/I 7 Days Of DC, Comm W/I 2 Dys Med Rec 03/26/2021 12:[facility] Complex Chronic Care Management SVC 1St 60 Min 021 [facility] Complex Chronic Care MGMT Service Ea Addl 30 Min 03/03 [facility] OFFICE OUTPATIENT VISIT 15 MINUTES 03/01/2021 [facility] OFFICE OUTPATIENT VISIT 25 MINUTES 02/23/2021 [facility] MYOCARDIAL SPECT MULTIPLE STUDIES 02/02/2021 12:00:00 AM [facility] CV STRS TST XERS&/OR RX CONT ECG PHYS SI&R 02/02/2021 12:00:00 AM EDT [facility] ([facility]) Chronic Care Management Services Ea Addl 20 Min 2020 12:00:00 AM EST [facility] ([facility]) Chronic Care MGMT 20 Mins Clinical Staff Time Per Calendar M [facility] 01/12/2021 12:00:00 AM TADEO CASSIDY ([facility] ) Complex Chronic Care Management SVC 1St 60 Min 021 12:00:00 AM EST [facility] ([facility]) Complex Chronic Care MGMT Service Ea Addl 30 Min 01/08 12:00:00 AM EST [facility] ([facility]) OFFICE OUTPATIENT VISIT 25 MINUTES 01/05/2021 12:00:00 AM EST [facility] ([facility]) ECG ROUTINE ECG W/LEAST 12 LDS W/I&R 12/11/2020 12:00: 00 AM EST [facility] ([facility]) Plain chest X-ray (procedure) 09/22/2020 07:03:00 PM E [facility] Plain chest X-ray (procedure) 09/22/2020 07:03:00 PM E [facility] Nucleic acid assay (procedure) 09/22/2020 12:00:00 AM [facility] Nucleic acid assay (procedure) 09/22/2020 12:00:00 AM [facility] Plain chest X-ray (procedure) 09/10/2020 07:40:00 PM E [facility] Plain chest X-ray (procedure) 09/10/2020 07:40:00 PM E [facility] Plain chest X-ray (procedure) 09/10/2020 07:40:00 PM E [facility] CT Abd/pel w/o contrast [facility]/10[facility]39[facility]/10[facility]2020 07:39[facility]/o contrast 09/10/2020 07:39:00 PM [facility] Blood culture for bacteria, including anaerobic screen (proc edure) 09/10/2020 12:00:00 AM ED[facility] culture for bacteria, including anaerobic screen (proc edure) 09/10/2020 12:00:00 AM EDT [facility] l Blood Culture 09/10/2020 12:00:00 AM EDT [facility] Results ID Date Data Source [id number] 08/22/2021 08:57:00 AM EDT [facility] Name Value Range Interpretation Code Description Data Natalie rce(s) Supporting Document(s) SARS coronavirus 2 RNA [Presence] in Res piratory specimen by ROMELIA with probe detection NEGATIVE [facility] This lab was ordered by [facility] a nd reported by [facility]. ID Date Data Source [id number] 08/16/2021 02:13:00 AM EDT [facility] @08/15/21 2158: 4hr Lactic Acid added. R FLXG = RFX LACTIC.@ DEMARIO DATE was changed from 08/15/21 to 08/16/21@ by LOWELL. Old specimen was [id number]. Name Value Range Interpretation Code Description Data Natalie rce(s) Supporting Document(s) Lactate [Mass/volume] in Serum or Plasma 1.7 mmol/L 0.5-2.2 N [facility] A HIGH RESULT ON THIS 4HR LACTIC ACID WI LL NOT REFLEXANOTHER - YOU MUST ORDER ONE IF YOU WANT IT REPEATED ID Date Data Source [id number] 08/16/2021 12:55:00 AM EDT [facility] ED Physician Documentation NAME: MAC GROSS : 1950 AGE: 71 MR#: [id number] SERVICE DATE: 08/15/[address]: Reji Bustos MD PRIMARY CARE DR: Kalpesh Pollack M.D. ROOM#: [facility] (Adult, General) General Chief Complaint: Multi [...] % (Auto) 66.6, Lymph % (Auto) 23.4, Desha % (Auto) 6.1, Eos % (Auto) 2.7, [...] Less than 0.015, C-Reactive Protein 8.4 H, Fuo-O-Utvrrhsjnrw Pept 119.00, Serum Total Protein 7.8, Albumin 3.1 L, Lipase 127, TSH 1.75 08/15/21 21:30: Lactic Acid 2.3 H 08/15/21 21:30: Ammonia 12 08/15/21 23:36: Urine Color Yellow, Urine Appearance Clear, Urine pH 5.5, Ur Specific [place] 1.015,Urine Protein 100 mg/dl H, Urine Ketones [...] rce(s) Supporting Document(s) ID Date Data Source [id number] 08/15/2021 11:53:00 PM EDT [facility] Reason for ordering culture: Abnormal fi ndings UA@08/15/21 2353: UA W/ MICRO added. RFLXG = UMIC CIF.Method of Collection:: Voided Reason for ordering culture: Abnormal fi ndings UA@08/15/21 2353: UA W/ MICRO added. RFLXG = UMIC CIF.Method of Collection:: Voided Name Value Range Interpretation Code Description Data Natalie rce(s) Supporting Document(s) Color of Urine [facility] Appearance of Urine CLEAR [facility] pH of Urine by Test strip 5.5 5-8 [facility] Specific gravity of Urine by Refractometry 1.015 1.005-1.030 [facility] Leukocyte esterase [Presence] in Urine by Test strip NEGAT [facility] Nitrite [Presence] in Urine by Test strip NEGATIVE [facility] Protein [Presence] in Urine by Test strip NEGATIVE Above high normal [facility] @DO MICRO!!!! Glucose [Mass/volume] in Urine by Automated test strip > 1000 mg /dl NEGATIVE Abnormal (applies to non-numeric results) [facility] Ketones [Presence] in Urine by Test strip NEGATIVE [facility] Urobilinogen [Presence] in Urine 0.2-1 EU/dl [facility] Bilirubin.total [Presence] in Urine by Automated test strip NEGATIVE [facility] Erythrocytes [#/volume] in Urine by Test strip NEGATIVE NEGATIVE [facility] URINE MICROSCOPIC? (CIF) Microscopic Added [facility] ID Date Data Source [id number] 08/15/2021 11:53:00 PM EDT [facility] Reason for ordering culture: Abnormal fi ndings UA@08/15/21 2353: UA W/ MICRO added. RFLXG = UMIC CIF.Method of Collection:: Voided Reason for ordering culture: Abnormal fi ndings UA@08/15/21 2353: UA W/ MICRO added. RFLXG = UMIC CIF.Method of Collection:: Voided Name Value Range Interpretation Code Description Data Natalie rce(s) Supporting Document(s) Erythrocytes [#/volume] in Urine by Manual count 1-2 /hpf 0-5 [facility] Leukocytes [#/volume] in Urine by Manual count OCCASIONAL 0-5 [facility] Cells [Type] in Urine sediment by Light microscopy [facility] ID Date Data Source [id number] 08/15/2021 10:40:00 PM EDT [facility] [address] [place] [address] [phone] NAME SEX PT STATUS ACCOUNT NUMBER MAC GROSS [facility] ER [id number] ORDERING PHYSICIAN LOCATION MEDICAL RECORD NO. Reji Bustos MD ER [id number] ATTENDING PHYSICIAN DATE OF DATE OF EXAM/TIME [...] MD on 08/15/212239 Date Time CC: René Chavraria MD; Kalpesh Pollack M.D. Techn: BAIAB Trans Dt/Tm: Trans by: DT Prt Dt/Tm: [id number]: Total DLP = 500.00 mGy-cm 4145-9185: Total Radiation Dose = 1.5500 mSv Lifetime Dose: 100.0800 mSv Name Value Range Interpretation Code Description Data Natalie rce(s) Supporting Document(s) ID Date Data Source [id number] 08/15/2021 10:38:00 PM EDT [facility] [address] [place] [address] [phone] NAME SEX PT STATUS ACCOUNT NUMBER MAC GROSS REG [id number] ORDERING PHYSICIAN LOCATION MEDICAL RECORD NO. Reji Bustos MD ER [id number] ATTENDING PHYSICIAN DATE OF DATE OF EXAM/TIME [...] Trans Dt/Tm: Trans by: DT Prt Dt/Tm: 6159-2585: Total DLP = 764.00 mGy-cm 5971-6236: Total Radiation Dose = 11.4600 mSv Lifetime Dose: 100.0800 mSv Name Value Range Interpretation Code Description Data Natalie rce(s) Supporting Document(s) ID Date Data Source [id number] 08/15/2021 10:22:00 PM EDT [facility] [address] [place] [address] [phone] NAME SEX PT STATUS ACCOUNT NUMBER MAC GROSS [facility] ER [id number] ORDERING PHYSICIAN LOCATION MEDICAL RECORD NO. Reji Bustos MD ER [id number] ATTENDING PHYSICIAN DATE OF DATE OF EXAM/TIME [...] Trans Dt/Tm: Trans by: DT Prt Dt/Tm: 6326-0015: Total DLP = 700.00 mGy-cm 3957-8926: Total Radiation Dose = 9.1000 mSv Lifetime Dose: 100.0800 mSv Name Value Range Interpretation Code Description Data Natalie rce(s) Supporting Document(s) ID Date Data Source [id number] 08/15/2021 09:51:00 PM EDT [facility] [address] [facility] [place] [id number] [phone] NAME SEX PT STATUS ACCOUNT NUMBER MAC GROSS [facility] ER [id number] ORDERING PHYSICIAN LOCATION MEDICAL RECORD NO. Reji Bustos MD ER [id number] ATTENDING PHYSICIAN DATE OF DATE OF EXAM/TIME [...] Trans Dt/Tm: Trans by: DT Prt Dt/Tm: 4942-6368: Total DLP = 0.00 mGy-cm Fluoroscopy Time (in secs): Name Value Range Interpretation Code Description Data Natalie rce(s) Supporting Document(s) ID Date Data Source [id number] 08/15/2021 09:35:00 PM EDT [facility] Anticoagulant or Thrombolytic medication : Unknown Special Instructions: Lab may order repe at test if initial test elevatedPhysician If elevated, reflex second test in 4-6 hrs Name Value Range Interpretation Code Description Data Natalie rce(s) Supporting Document(s) Leukocytes [#/volume] in Blood by Automated count 8.2 10*3/uL 4.45-10 .71 N [facility] Erythrocytes [#/volume] in Blood by Automated count 4.13 10*6/uL 4.3-6.1 Below low normal [facility] Hemoglobin [Moles/volume] in Blood 12.9 g/dL 13-18 Below low no rmal [facility] Hematocrit [Volume Fraction] of Blood by Automated count 36.9 % 42-52 Below low normal [facility] Erythrocyte mean corpuscular volume [Ent itic volume] in Cord blood by Automated count 89 fL 80-96 N [facility] ital Erythrocyte mean corpuscular hemoglobin [Entitic mass] by Au tomated count 31 pg 27-31 N [facility] Erythrocyte mean corpuscular hemoglobin concentration [Mass/volume] in Cord blood 35 g/dL 33-37 N [facility] ital Erythrocyte distribution width [Entitic volume] by Automated count 13 % 11-15 N [facility] Platelets [#/volume] in Blood by Automated count 183 10*3/uL 130-472 N [facility] Platelet mean volume [Entitic volume] in Blood 9.5 fL 9.1-13.1 N [facility] Neutrophils/100 leukocytes in Blood by Automated count 66.6 % 41- 77 N [facility] Neutrophils [#/volume] in Blood by Automated count 5.4 U 1.7-7.6 N [facility] Lymphocytes/100 leukocytes in Blood by Automated count 23.4 % 14- 46 N [facility] Lymphocytes [#/volume] in Blood by Automated count 1.9 U 0.6-4.6 N [facility] Monocytes/100 leukocytes in Blood by Automated count 6.1 % 4-12 N [facility] Monocytes [#/volume] in Blood by Automated count 0.5 U 0.2-1.2 N [facility] Eosinophils/100 leukocytes in Blood by Automated count 2.7 % 0-7 N [facility] Eosinophils [#/volume] in Blood by Automated count 0.2 U 0.0-0.5 N [facility] Basophils/100 leukocytes in Blood by Automated count 0.7 % 0.4-1 .3 N [facility] Basophils [#/volume] in Blood by Automated count 0.1 U 0.0-0.2 N [facility] NUCLEATED RED BLOOD CELL 0 % [facility] NUCLEATED RED BLOOD CELL# 0 U [facility] Immature granulocytes [Presence] in Blood by Automated count 0-2 N [facility] Immature granulocytes [#/volume] in Blood by Automated count 0.0 U 0-0.1 N [facility] Manual Differential panel - Blood NO [facility] ID Date Data Source [id number] 08/15/2021 09:56:00 PM EDT [facility] Anticoagulant or Thrombolytic medication : Unknown Special Instructions: Lab may order repe at test if initial test elevatedPhysician If elevated, reflex second test in 4-6 hrs Name Value Range Interpretation Code Description Data Natalie rce(s) Supporting Document(s) Ammonia [Moles/volume] in Plasma 12 umol/L 11.2-31.7 N [facility] ID Date Data Source [id number] 08/15/2021 09:57:00 PM EDT [facility] Anticoagulant or Thrombolytic medication : Unknown Special Instructions: Lab may order repe at test if initial test elevatedPhysician If elevated, reflex second test in 4-6 hrs Name Value Range Interpretation Code Description Data Natalie rce(s) Supporting Document(s) Prothrombin Time (Patient) 10.9 s 9.6-12.3 N [facility] INR 1.0 0.9-1.1 [facility] THE INR IS OPERATIONALLY DEFINED FOR BILLY SH PLASMA FROMPATIENTS STABILIZED ON ORAL ANTICOAGULANTS.ROUTINE ANTICOAGULANT THERAPY 2.0-3.0RECURRENT SYSTEMIC EMBOLISM/HEART VALVE REPLACEMENT 2.5-3.5 aPTT.lupus sensitive (LA screen) 28.8 s 22.7-31.6 [facility] ID Date Data Source [id number] 08/15/2021 09:58:00 PM EDT [facility] Anticoagulant or Thrombolytic medication : Unknown Special Instructions: Lab may order repe at test if initial test elevatedPhysician If elevated, reflex second test in 4-6 hrs Name Value Range Interpretation Code Description Data Natalie rce(s) Supporting Document(s) Lactic w Rfx (if elevated) 2.3 mmol/L 0.5-2.0 Above high normal [facility] Called to YEYO Chappell @ 4994 by Enma Colon . Results read back. ID Date Data Source [id number] 08/15/2021 10:20:[facility] or Thrombolytic medication : Unknown Special Instructions: Lab may order repe at test if initial test elevatedPhysician If elevated, reflex second test in 4-6 hrs Name Value Range Interpretation Code Description Data Natalie rce(s) Supporting Document(s) Urea nitrogen [Mass/volume] in Serum or Plasma 16 mg/dL 9-23 N [facility] Sodium [Moles/volume] in Serum or Plasma 135 mmol/L 132-146 [facility] Potassium [Moles/volume] in Serum or Plasma 4.5 mmol/L 3.5-5.5 [facility] Chloride [Moles/volume] in Serum or Plasma 101 mmol/L 99-109 N [facility] Carbon dioxide, total [Moles/volume] in Serum or Plasma 26 mmol/L 20 -31 N [facility] Anion gap in Serum or Plasma 13 mmol/L 8-[address] [facility] Glucose [Mass/volume] in Serum or Plasma 297 mg/dL 74-106 Above high normal [facility] Creatinine 1.2 mg/dL 0.5-1.1 Above high normal [facility] Glomerular filtration rate/1.73 sq M.pre dicted [Volume Rate/Area] in Serum or Plasma 60 ml/min ABOVE 60 [facility] ital Alanine aminotransferase [Enzymatic acti vity/volume] in Serum or Plasma by With P-5'-P 65 U/L 10-49 Above high normal [facility] Aspartate aminotransferase [Enzymatic ac tivity/volume] in Serum or Plasma by With P-5'-P 37 U/L 0-33 Above high normal [facility] Alkaline phosphatase [Enzymatic activity/volume] in Serum or Plasma 81 U/L 45-129 [facility] Calcium [Mass/volume] in Serum or Plasma 10.3 mg/dL 8.5-10.1 [facility] Repeated by: Enma Colon 08/15/212219. Result Confirmation: 10.0 mg/dL Bilirubin.total [Mass/volume] in Serum or Plasma 0.3 mg/dL 0.3-1.2 [facility] Albumin [Mass/volume] in Serum or Plasma by Bromocresol purple (BCP) dye binding method 3.1 g/dL 3.2-4.8 Below low normal [facility] Protein [Mass/volume] in Serum or Plasma 7.8 g/dL 5.7-8.2 [facility] ID Date Data Source [id number] 08/20/2021 09:31:00 PM EDT [facility] Anticoagulant or Thrombolytic medication : Unknown Special Instructions: Lab may order repe at test if initial test elevatedPhysician If elevated, reflex second test in 4-6 hrs Name Value Range Interpretation Code Description Data Natalie rce(s) Supporting Document(s) Bacteria identified in Blood by Culture [facility] NO GROWTH AFTER 5 DAYS ID Date Data Source [id number] 08/15/2021 10:20:00 PM EDT [facility] Anticoagulant or Thrombolytic medication : Unknown Special Instructions: Lab may order repe at test if initial test elevatedPhysician If elevated, reflex second test in 4-6 hrs Name Value Range Interpretation Code Description Data Natalie rce(s) Supporting Document(s) Lipase [Enzymatic activity/volume] in Serum or Plasma 127 U/L 73-3 93 N [facility] ID Date Data Source [id number] 08/15/2021 10:20:00 PM [facility] Anticoagulant or Thrombolytic medication : Unknown Special Instructions: Lab may order repe at test if initial test elevatedPhysician If elevated, reflex second test in 4-6 hrs Name Value Range Interpretation Code Description Data Natalie rce(s) Supporting Document(s) C reactive protein [Mass/volume] in Serum or Plasma 8.4 mg/L 0.0-5.0 Above high normal [facility] ID Date Data Source [id number] 08/15/2021 10:20:00 PM [facility] Anticoagulant or Thrombolytic medication : Unknown Special Instructions: Lab may order repe at test if initial test elevatedPhysician If elevated, reflex second test in 4-6 hrs Name Value Range Interpretation Code Description Data Natalie rce(s) Supporting Document(s) Troponin I.cardiac [Mass/volume] in Serum or Plasma Less Than 0.015 0.00-0.09 [facility] Less than 0.09 NG/ML Negative0.10 - 0.77 NG/ML High Risk0.78 NG/ML or Greater PositiveThe WHO defined the cutoff (definition for diagnosis of VA)for this method as 0.78 ng/ml. ID Date Data Source [id number] 08/15/2021 10:20:00 PM [facility] Anticoagulant or Thrombolytic medication : Unknown Special Instructions: Lab may order repe at test if initial test elevatedPhysician If elevated, reflex second test in 4-6 hrs Name Value Range Interpretation Code Description Data Natalie rce(s) Supporting Document(s) Thyrotropin [Units/volume] in Serum or Plasma by Detec tion limit <= 0.005 mIU/L 1.75 u[iU]/mL 0.35-5.50 [facility] Date Data Source [id number] 08/15/2021 10:20:00 PM [facility] Anticoagulant or Thrombolytic medication : Unknown Special Instructions: Lab may order repe at test if initial test elevatedPhysician If elevated, reflex second test in 4-6 hrs Name Value Range Interpretation Code Description Data Natalie rce(s) Supporting Document(s) Natriuretic peptide.B prohormone N-Terminal [Mass/volu me] in Serum or Plasma 119.00 pg/mL 0.00-175 N [facility] l ID Date Data Source [id number] 08/16/2021 01:03:00 AM EDT [facility] Normal result is "BinaxNow Covid-19 Ag n egative"[employer]Now Covid-19 Ag is a rapid lateral flowimmunochromatographic immunoassayThis test detects both viable(live) and non-viable, SARS-COVand SARS-COV-2.Positive test results do not differentiate between SARS-COVand [id number] results , from patients with symptom onset beyondseven days, should be treated as presumptive andconfirmation with a molecular assay, if necessary, forpatient managementIf the differentiation of specific SARS viruses and strainsis needed, additional testing, in consultation with stateand local public health departments, is required.SARS-CoV-2 Ag Resp Ql IA.rapid Name Value Range Interpretation Code Description Data Natalie rce(s) Supporting Document(s) ID Date Data Source [id number] 08/15/2021 09:21:00 PM EDT [facility] Name Value Range Interpretation Code Description Data Natalie rce(s) Supporting Document(s) SARS-CoV-2 (COVID-19) Ag [Presence] in R espiratory specimen by Rapid immunoassay BinaxNow Covid -19 Ag Negative [facility] This lab was ordered by [facility] and reported by [facility]. ID Date Data Source [id number] 06/22/2021 07:28:00 AM EDT [facility] ([facility], ) Name Value Range Interpretation Code Description Data Natalie rce(s) Supporting Document(s) PDFReport Laboratory test result [facility] ([facility], ) FVC-Pre 3.11 L [facility] ([facility], ) FVC-Pred 4.61 L [facility] ([facility], ) FVC-LLN 3.63 L [facility] ([facility]) FVC-%Pred-Pre 67 L [facility] ([facility] [place], ) Fev1-Pred 3.37 L [facility] ([facility], ) Fev1-Pre 2.41 L [facility] ([facility], ) Fev1-%Pred-Pre 71 L [facility] ([facility], ) Fev6-Pred 4.35 L [facility] ([facility], ) Fev1-LLN 2.55 L [facility] ([facility], ) Fev6-%Pred-Pre 71 L [facility] ([facility], ) Fev6-Pre 3.11 L [facility] ([facility], ) Fev6-LLN 3.40 L [facility] ([facility]) Nss2smb-Xdjn 73 % [facility] ([facility], ) Skd9tfx-Qpq 78 % [facility] ([facility], ) Oql9xmi-%Pred-Pre 105 % [facility] ([facility]) Jsx1rvz-PGP 63 % [facility] ([facility]) Tsa5wuq-Ddpq 94 % [facility] ([facility], ) Kzl7sow-Yya 100 % [facility] ([facility]) Bci8aot-%Pred-Pre 105 % [facility] ([facility]) FEFMax-Pred 8.50 L/E/sec [facility] ([facility], ) FEFMax-Pre 6.47 L/E/sec [facility] ([facility] [place], ) FEFMax-%Pred-Pre 76 L/E/sec [facility] ([facility]) Xdr4350-Ugqy 2.52 L/E/sec [facility] ([facility]) FEFMax-LLN 6.07 L/E/sec [facility] ([facility]) Vye2804-%Pred-Pre 83 L/E/sec [facility] ([facility]) Nvr2603-Uis 2.10 L/E/sec [facility] ([facility]) Fba8477-USB 0.85 L/E/sec [facility] ([facility]) ExpTime-Pre 5.41 sec [facility] ([facility]) Lsv9abd8-Chiu 77 % [facility] ([facility]) Dav4mom8-Tdn 78 % [facility] ([facility]) Dxn6rpy3-XAG 68 % [facility] ([facility]) Qof3mcs8-%Pred-Pre 100 % [facility] ([facility]) ID Date Data Source [id number] 06/09/2021 03:01:00 PM EDT [facility] ([facility]) Name Value Range Interpretation Code Description Data Natalie rce(s) Supporting Document(s) Cholesterol 223 [facility] ([facility]) Triglycerides 312 [facility] ([facility]) HDL 38 [facility] ([facility] Cholesterol in LDL [Mass/volume] in Serum or Plasma by calculation 12 3 [facility] ([facility]) Chol/HDL Ratio Laboratory test result [facility] ([facility]) ID Date Data Source [id number] 06/09/2021 03:01:00 PM EDT [facility] ([facility]) Name Value Range Interpretation Code Description Data Natalie rce(s) Supporting Document(s) White Blood Count 7.1 [facility] ([facility]) Red Blood Count 4.43 [facility] ([facility]) Hematocrit 38.6 [facility] ([facility]) Hemoglobin 13.2 [facility] ([facility]) Platelets 202 [facility] ([facility]) ID Date Data Source [id number] 06/09/2021 03:01:00 PM EDT [facility] ([facility]) Name Value Range Interpretation Code Description Data Naatlie rce(s) Supporting Document(s) Aspartate aminotransferase [Enzymatic activity/volume] in Serum or Plasma 28 [facility] ([facility]) Alanine aminotransferase [Enzymatic activity/volume] in Serum or Pl asma 47 [facility] ([facility]) Alk Phos 85 [facility] [place] Albumin 3.5 [facility] [place] Total Bilirubin 0.3 [facility] ([facility] [place] A/G Ratio 0.83 [facility] [place] Total Protein 7.7 [facility] ([facility] [place] ID Date Data Source [id number] 06/09/2021 03:01:00 PM EDT [facility] ([facility] [...] [facility] [place]) ID Date Data Source [id number] 06/09/2021 09:15:00 AM EDT [facility] ([facility]) Name Value Range Interpretation Code Description Data Natalie rce(s) Supporting Document(s) Leukocytes [#/volume] in Blood by Automated count 7.1 x10*3/UL 4.1-10 .9 [facility] ([facility]) Hemoglobin [Mass/volume] in Blood 13.2 g/dL 12.0-18.0 [facility] ([facility]) Erythrocytes [#/volume] in Blood by Automated count 4.43 x10*6/UL 4.2 0-6.30 [facility] ([facility]) MCV 87.2 fL 80.0-97.0 [facility] Hematocrit [Volume Fraction] of Blood by Automated count 38.6 % 3 7.0-51.0 [facility] ([facility]) MCH 29.8 pg 26.0-32.0 [facility] Erythrocyte distribution width [Ratio] by Automated count 12.8 % 11.6-13.7 [facility] ([facility]) MCHC 34.1 g/dL 31.0-38.0 [facility] MPV 8.1 FL 7.8-11.0 [facility] ([facility]) Platelets [#/volume] in Blood by Automated count 202 x10*3/UL 140-440 [facility] ([facility]) Mid % 6.4 % 1.7-9.3 [facility] Lymph % 22.3 % 10.0-58.5 [facility] Neut % 71.3 % 37.0-92.0 [facility] ([facility]) Mid # 0.4 x10*3/UL 0.1-0.6 [facility] ([facility]) Lymph # 1.6 x10*3/UL 0.6-4.1 [facility] ([facility]) Neut # 5.1 x10*3/UL 2.0-7.8 [facility] ([facility]) ID Date Data Source [id number] 06/09/2021 09:15:00 AM EDT [facility] ([facility]) Name Value Range Interpretation Code Description Data Natalie rce(s) Supporting Document(s) Triglyceride [Mass/volume] in Serum or Plasma 312 mg/dL 30-150 [facility] ([facility]) Cholesterol [Mass/volume] in Serum or Plasma 223 mg/dL 131-200 [facility] ([facility]) Cholesterol in HDL [Mass/volume] in Serum or Plasma 38 mg/dL 35-60 [facility] ([facility]) Cholesterol in LDL [Mass/volume] in Serum or Plasma by calcu lation 123 CALC 50-159 [facility] ([facility]) ID Date Data Source [id number] 06/09/2021 09:15:00 AM EDT [facility] ([facility]) Name Value Range Interpretation Code Description Data Natalie rce(s) Supporting Document(s) Glucose [Mass/volume] in Serum or Plasma 296 mg/dL 74-99 [facility] ([facility]) 100-125 mg/dL PRE-DIABETES/FASTING >126 mg/dL DIABETES/FASTING Urea nitrogen [Mass/volume] in Serum or Plasma 32 mg/dL 7-18 [facility] ([facility]) NOTE: BUN,CALCIUM VERIFIED Creatinine 1.3 mg/dL 0.6-1.3 [facility] ([facility]) Potassium [Moles/volume] in Serum or Plasma 4.2 meq/L 3.5-5.1 [facility] ([facility]) Sodium [Moles/volume] in Serum or Plasma 137 meq/L 136-145 [facility] ([facility]) Chloride [Moles/volume] in Serum or Plasma 99 meq/L 98-107 [facility] ([facility]) Carbon dioxide, total [Moles/volume] in Serum or Plasma 27 meq/L 21 -32 [facility] ([facility]) Calcium [Mass/volume] in Serum or Plasma 10.7 mg/dL 8.5-10.1 [facility] ([facility]) Total Bilirubin 0.3 mg/dL 0.2-1.0 [facility] ([facility]) Alkaline phosphatase isoenzyme [Units/volume] in Serum or Pl asma 85 mg/dL 46-116 [facility] ([facility]) Albumin [Mass/volume] in Serum or Plasma 3.5 g/dL 3.4-5.0 [facility] ([facility]) Aspartate aminotransferase [Enzymatic activity/volume] in Serum or Plasma 28 U/L 15-37 [facility] ([facility] ) Alanine aminotransferase [Enzymatic activity/volume] in Seru m or Plasma 47 U/L 12-78 [facility] ([facility]) Proteinase 3 Ab [Units/volume] in Serum 7.7 g/dL 6.4-8.2 [facility] ([facility]) A/G Ratio 0.83 CALC 1.00-1.90 [facility]) Glomerular filtration rate/1.73 sq M pre dicted among blacks [Volume Rate/Area] in Serum or Plasma by Creatinine-based formula (MDRD) Laboratory test result [facility] ([facility]) <content>CHRONIC KIDNEY DISEASE STAGING PER NKF</content>
<content></content>
<content>STAGE I & II GFR >= 60 NORMAL TO MILDLY DECREASED</content>
<content>STAGE III GFR 30-59 MODERATELY DECREASED</content>
<content>STAGE IV GFR 15-29 SEVERELY DECREASED</content>
<content>STAGE V GFR <15 VERY LITTLE GFR LEFT</content>
<content>ESRD GFR <15 ON C ARCHITECT</content>
<content></content> Glomerular filtration rate/1.73 sq M pre dicted among non-blacks [Volume Rate/Area] in Serum or Plasma by Creatinine-based formula (MDRD) 54 mL/min [facility]) ID Date Data Source [id number] 06/09/2021 09:15:00 AM EDT [facility]) Name Value Range Interpretation Code Description Data Natalie rce(s) Supporting Document(s) Hemoglobin A1c/Hemoglobin.total in Blood 10.6 % [facility] ([facility]) Lab Result Notes: Pre-Diabetes 5.7 - 6.4 % Diabetes = or > 6.5% Glucose mean value [Mass/volume] in Blood Estimated fr om glycated hemoglobin 258 mg/dL 60-110 [facility] ) ID Date Data Source [id number] 06/09/2021 09:15:00 AM EDT [facility]) Name Value Range Interpretation Code Description Data Natalie rce(s) Supporting Document(s) Hemoglobin A1c/Hemoglobin.total in Blood Laboratory test result [facility] ([facility]) ID Date Data Source [id number] 04/22/2021 03:38:00 PM EDT [facility]) Name Value Range Interpretation Code Description Data Natalie rce(s) Supporting Document(s) Blood Culture Laboratory test result [facility] ([facility]) No growth after 72 hours . All specimens observed for 5 days. Results final at that time. No growth after 48 hours . All specimens observed for 5 days. Results final at that time. No growth after 24 hours . All specimens observed for 5 days. Results final at that time. NO GROWTH AFTER 5 DAYS ID Date Data Source [id number] 04/22/2021 03:27:00 PM EDT [facility] ([facility]) Name Value Range Interpretation Code Description Data Natalie rce(s) Supporting Document(s) Respiratory Panel Laboratory test result [facility] ([facility]) This respiratory PCR panel detects Influ [...] 1: HUMAN RHINOVIRUS/ENTEROVIRUS ID Date Data Source [id number] 04/22/2021 03:27:00 PM EDT [facility] Name Value Range Interpretation Code Description Data Natalie rce(s) Supporting Document(s) SARS-CoV-2 (COVID 19) NEGATIVE - SARS-CoV-2 (COVID19) [facility] This lab was ordered by [facility] a nd reported by [facility]. ID Date Data Source [id number] 04/22/2021 03:26:00 PM EDT [facility] ([facility]) Name Value Range Interpretation Code Description Data Natalie rce(s) Supporting Document(s) White Blood Count 9.5 10 4.0-10.0 [facility] ([facility]) Hemoglobin 12.7 g/dL 13.5-17.5 [facility] ([facility]) Red Blood Count 4.24 10 4.30-6.10 [facility] ([facility]) Mean Corpuscular Volume 89.2 fl 80.0-96.0 [facility] ([facility]) Hematocrit 37.8 % 42.0-52.0 [facility] Mean Corpuscular HGB Conc 33.6 g/dL 32.0-36.5 MEDE NT ([facility]) Mean Corpuscular Hemoglobin 30.0 pg 27.0-33.0 ME DENT ([facility]) Platelet Count, Automated 200 10 150-450 MEDE NT ([facility]) Red Cell Distribution Width 12.9 % 11.5-14.5 [facility] ([facility]) Neutrophils % 73.8 % 36.0-66.0 [facility] ([facility]) Lymph % 17.3 % 24.0-44.0 [facility] Eos % 2.0 % 0.0-3.0 [facility]) Desha % 5.9 % 2.0-8.0 [facility]) Immature Granulocyte % 0.4 % 0-3.0 [facility] ([facility]) Baso % 0.6 % 0.0-1.0 [facility]) Neutrophils # 7.0 10 1.5-8.5 [facility] ([facility]) Nucleated Red Blood Cell % 0.0 % 0-0 MED ENT ([facility]) Lymph # 1.7 10 1.5-5.0 [facility]) Desha # 0.6 10 0.0-0.8 [facility] Eos # 0.2 10 0.0-0.5 [facility] Baso # 0.1 10 0.0-0.2 [facility]) ID Date Data Source [id number] 04/22/2021 03:26:00 PM EDT [facility] ([facility]) Name Value Range Interpretation Code Description Data Natalie rce(s) Supporting Document(s) CPK Creatine Phosphokinase 78 U/L 39-308 [facility] ([facility]) MB/CK Relative Index 1.54 [facility] <content>DIAGNOSIS CRITERIA</content>
<content>MMB ng/ml Relative Index (RI)</content>
<content>NON-AMI < or = 5 N/A</content>
<content>GONZALEZ ZONE > 5 < or = 4</content>
<content>AMI > 5 > 4</content>
<content></content> CK-MB Value Mass 1.2 ng/mL [facility] Troponin I Laboratory test result [facility] ([facility]) <content>Troponin I Reference Interval f or Siemens [place] [facility]:</content>
<content></content>
<content>99th Percentile= 0.00-0.045 ng/ml</content>
<content></content>
<content>Risk Stratification:</content>
<content><= 0.10 ng/ml Decreased Risk for Adverse Clinical</content>
<content>Events.</content>
<content>0.10-1.50 ng/ml Increased Risk for Adverse Clinical</content>
<content>Events. Evaluation of additional</content>
<content>criterion and/or repeat testing in 2-6</content>
<content>hours is suggested to rule out myocardial</content>
<content>damage.</content>
<content>>= 1.50 ng/ml Indicative of Myocardial Injury.</content>
<content></content> ID Date Data Source [id number] 04/22/2021 03:26:00 PM EDT [facility] Name Value Range Interpretation Code Description Data Natalie rce(s) Supporting Document(s) Blood Urea Nitrogen 19 mg/dL 7-18 [facility] ([facility]) Glucose, Fasting 234 mg/dL 70-100 [facility] ([facility]) Glomerular Filtration Rate Laboratory test [facility]) <content>Units are mL/min/1.73 m2</content>
<content></content>
<content>Chronic Kidney Disease Staging per NKF:</content>
<content></content>
<content>Stage I & II GFR >=60 Normal to Mildly Decreased</content>
<content>Stage III GFR 30- 59 Moderately Decreased</content>
<content>Stage IV GFR 15-29 Severely Decreased</content>
<content>Stage V GFR <15 Very Little GFR Left</content>
<content>ESRD GFR <15 on C ARCHITECT</content>
<content></content> Creatinine For GFR 1.15 mg/dL 0.70-1.30 [facility] ([facility]) Potassium Serum 4.0 meq/L 3.5-5.1 [facility] ([facility]) Sodium Level 136 meq/L 136-145 [facility] ([facility]) Chloride Level 100 meq/L 98-107 [facility] ([facility]) Carbon Dioxide Level 26 meq/L 21-32 [facility] ([facility]) Anion Gap 10 meq/L 8-16 [facility] ([facility]) Calcium Level 9.6 mg/dL 8.8-10.2 [facility] ([facility]) ID Date Data Source [id number] 04/22/2021 03:26:00 PM EDT [facility] ([facility]) Name Value Range Interpretation Code Description Data Natalie rce(s) Supporting Document(s) Lactate [Mass/volume] in Serum or Plasma 2.1 mmol/L 0.4-2.0 Above upper panic limits [facility] ([facility]) Y/N query for Sepsis Lactate Rule: Y ID Date Data Source [id number] 04/22/2021 03:26:00 PM EDT [facility] ([facility]) Name Value Range Interpretation Code Description Data Natalie rce(s) Supporting Document(s) Ast/Sgot 26 U/L 7-37 [facility] ([facility]) Alkaline Phosphatase 91 U/L 45-117 [facility] ([facility]) Alt/SGPT 46 U/L 12-78 [facility] ([facility]) Bilirubin,Direct 0.2 mg/dL 0.0-0.2 [facility] ([facility]) Bilirubin,Total 0.5 mg/dL 0.2-1.0 [facility] ([facility]) Albumin 3.2 GM/DL 3.2-5.2 [facility] ([facility]) Total Protein 7.7 GM/DL 6.4-8.2 [facility] ([facility]) Albumin/Globulin Ratio 0.7 [facility] ([facility]) ID Date Data Source [id number] 04/22/2021 12:39:00 PM EDT [facility] ED Physician Documentation NAME: MAC GROSS : 1950 AGE: 71 MR#: [id number] SERVICE DATE: 04/22/[address]: Meliton Singh MD PRIMARY CARE DR: Kalpesh Pollack M.D. ROOM#: [facility] (Adult, General) General Chief Complaint: Respiratory [...] rce(s) Supporting Document(s) ID Date Data Source [id number] 04/22/2021 12:27:00 PM EDT [facility] ([facility]) Name Value Range Interpretation Code Description Data Natalie rce(s) Supporting Document(s) Troponin Laboratory test result [facility] ([facility]) ID Date Data Source [id number] 04/22/2021 12:27:00 PM EDT [facility] ([facility]) Name Value Range Interpretation Code Description Data Natalie rce(s) Supporting Document(s) Carbon dioxide, total [Moles/volume] in Serum or Plasma 26 [facility] ([facility]) Sodium 136 [facility] Calcium [Mass/volume] in Serum or Plasma 9.6 [facility] ([facility]) Chloride [Moles/volume] in Serum or Plasma 100 [facility] ([facility]) Potassium [Moles/volume] in Serum or Plasma 4.0 [facility] ([facility]) Glucose 234 70-100 [facility] ([facility]) Blood Urea Nitrogen 19 5-21 [facility] ([facility]) Glomerular filtration rate/1.73 sq M.pre dicted [Volume Rate/Area] in Serum or Plasma by Creatinine-based formula (MDRD) Laboratory test result [facility] ([facility]iology [facility]) Creatinine 1.15 0.6-1.5 [facility] ([facility]) ID Date Data Source [id number] 04/22/2021 12:27:00 PM EDT [facility] ([facility]) Name Value Range Interpretation Code Description Data Natalie rce(s) Supporting Document(s) Alkaline phosphatase [Enzymatic activity/volume] in Serum or Plasma 9 1 [facility] ([facility]) Aspartate aminotransferase [Enzymatic activity/volume] in Serum or Plasma 26 [facility] ([facility]) Bilirubin.total [Mass/volume] in Serum or Plasma 0.5 [facility] ([facility]) Alanine aminotransferase [Enzymatic activity/volume] in Serum or Pl asma 46 [facility] ([facility]) Bilirubin.direct [Mass/volume] in Serum or Plasma 0.2 [facility] ([facility]) Protein [Mass/volume] in Serum or Plasma 7.7 [facility] ([facility]) Cholesterol [Mass/volume] in Serum or Plasma Laboratory test result [facility] ([facility]) Albumin [Mass/volume] in Serum or Plasma 3.2 [facility] ([facility]) ID Date Data Source [id number] 04/22/2021 12:27:00 PM EDT [facility] ([facility]) Name Value Range Interpretation Code Description Data Natalie rce(s) Supporting Document(s) Creatine kinase [Enzymatic activity/volume] in Serum or Plasma 78 41-270 [facility] ([facility]) CPK-MB 1.2 [facility] MB/CK Relative 1.2 [facility] ([facility]) ID Date Data Source [id number] 04/22/2021 12:27:00 PM EDT [facility] ([facility]) Name Value Range Interpretation Code Description Data Natalie rce(s) Supporting Document(s) White Blood Count 9.5 4.3-10.9 [facility] ([facility]) Platelets 200 130-400 [facility] Red Blood Count 4.24 4.70-6.20 [facility] ([facility]) Hemoglobin 12.7 13.0-17.0 [facility] ([facility]) Hematocrit 37.8 39.0-50.0 [facility] ([facility]) ID Date Data Source [id number] 04/12/2021 02:00:00 PM EDT [facility] ([facility]) Name Value Range Interpretation Code Description Data Natalie rce(s) Supporting Document(s) Bedside Glucose 262 mg/dL 83-110 [facility] ([facility]) ID Date Data Source [id number] 04/12/2021 12:44:00 PM EDT [facility] ([facility]) Name Value Range Interpretation Code Description Data Natalie rce(s) Supporting Document(s) Bedside Glucose 283 mg/dL 83-110 [facility] ([facility]) ID Date Data Source [id number] 03/17/2021 02:09:00 PM EDT [facility] Name Value Range Interpretation Code Description Data Natalie rce(s) Supporting Document(s) SARS coronavirus 2 RNA [Presence] in Res piratory specimen by ROMELIA with probe detection NEGATIVE [facility] This lab was ordered by [facility] a nd reported by [facility]. ID Date Data Source [id number] 03/17/2021 10:01:00 AM EDT [facility] ([facility]) Name Value Range Interpretation Code Description Data Natalie rce(s) Supporting Document(s) Blood Type Laboratory test result [facility] ([facility]) AB Screen (Indirect Kevin)Vis Laboratory test result [facility] ([facility]) ID Date Data Source [id number] 03/17/2021 10:01:00 AM EDT [facility] ([facility]) Name Value Range Interpretation Code Description Data Natalie rce(s) Supporting Document(s) Lactate [Mass/volume] in Serum or Plasma 2.0 mmol/L 0.4-2.0 [facility] ([facility]) Y/N query for Sepsis Lactate Rule: Y ID Date Data Source [id number] 03/17/2021 10:01:00 AM EDT [facility] ([facility]) Name Value Range Interpretation Code Description Data Natalie rce(s) Supporting Document(s) White Blood Count 9.6 10 4.0-10.0 [facility] ([facility]) Red Blood Count 4.30 10 4.30-6.10 [facility] ([facility] [facility]) Hemoglobin 13.2 g/dL 13.5-17.5 MEDENT ([facility]) Hematocrit 39.0 % 42.0-52.0 MED[facility] ([facility]) Mean Corpuscular HGB Conc 33.8 g/dL 32.0-36.5 MEDE NT ([facility]) Mean Corpuscular Hemoglobin 30.7 pg 27.0-33.0 SD DENT ([facility]) Mean Corpuscular Volume 90.7 fl 80.0-96.0 [facility] ([facility]) Platelet Count, Automated 204 10 150-450 MEDE NT ([facility]) Red Cell Distribution Width 13.3 % 11.5-14.5 SD DENT ([facility]) Lymph % 23.9 % 24.0-44.0 [facility] [facility]) Neutrophils % 66.7 % 36.0-66.0 MED[facility] ([facility]) Desha % 5.9 % 2.0-8.0 [facility] [facility]) Baso % 0.5 % 0.0-1.0 [facility] [facility] Eos % 2.6 % 0.0-3.0 [facility] [facility] Immature Granulocyte % 0.4 % 0-3.0 MEDENT ([facility]) Nucleated Red Blood Cell % 0.0 % 0-0 MED ENT ([facility]) Desha # 0.6 10 0.0-0.8 [facility] ([place] [facility] Neutrophils # 6.4 10 1.5-8.5 MED[facility] ([facility]) Lymph # 2.3 10 1.5-5.0 [facility] ([place] [facility] Eos # 0.3 10 0.0-0.5 [facility] ([place] [facility]) Baso # 0.1 10 0.0-0.2 [facility] ([place] [facility]) ID Date Data Source [id number] 03/17/2021 10:01:00 AM EDT MEDENT ([facility]) Name Value Range Interpretation Code Description Data Natalie rce(s) Supporting Document(s) CPK Creatine Phosphokinase 78 U/L 39-308 MED ENT ([facility]) CK-MB Value Mass Laboratory test result MED[facility] ([facility]) Troponin I Laboratory test result MEDENT ([facility]) <content>Troponin I Reference Interval f or Siemens [place] LOCI:</content>
<content></content>
<content>99th Percentile= 0.00-0.045 ng/ml</content>
<content></content>
<content>Risk Stratification:</content>
<content><= 0.10 ng/ml Decreased Risk for Adverse Clinical</content>
<content>Events.</content>
<content>0.10-1.50 ng/ml Increased Risk for Adverse Clinical</content>
<content>Events. Evaluation of additional</content>
<content>criterion and/or repeat testing in 2-6</content>
<content>hours is suggested to rule out myocardial</content>
<content>damage.</content>
<content>>= 1.50 ng/ml Indicative of Myocardial Injury.</content>
<content></content> MB/CK Relative Index 1.28 MEDENT ([facility]) <content>DIAGNOSIS CRITERIA</content>
<content>MMB ng/ml Relative Index (RI)</content>
<content>NON-AMI < or = 5 N/A</content>
<content>GONZALEZ ZONE > 5 < or = 4</content>
<content>AMI > 5 > 4</content>
<content></content> ID Date Data Source [id number] 03/17/2021 10:01:00 AM EDT MEDENT ([facility]) Name Value Range Interpretation Code Description Data Natalie rce(s) Supporting Document(s) Ast/Sgot 36 U/L 7-37 MEDENT ([facility]) Alkaline Phosphatase 87 U/L 45-117 MED[facility] ([facility]) Alt/SGPT 42 U/L 12-78 MED[facility] ([facility]) Bilirubin,Direct 0.1 mg/dL 0.0-0.2 MED[facility] ([facility]) Bilirubin,Total 0.3 mg/dL 0.2-1.0 MED[facility] ([facility]) Total Protein 7.5 GM/DL 6.4-8.2 MEDENT ([facility]) Albumin/Globulin Ratio 0.7 MED[facility] ([facility]) Albumin 3.2 GM/DL 3.2-5.2 MED[facility] ([facility]) ID Date Data Source [id number] 03/17/2021 10:01:00 AM EDT MEDENT ([facility]) Name Value Range Interpretation Code Description Data Natalie rce(s) Supporting Document(s) Blood Urea Nitrogen 24 mg/dL 7-18 MED[facility] ([facility]) Glucose, Fasting 271 mg/dL 70-100 MED[facility] ([facility]) Creatinine For GFR 1.43 mg/dL 0.70-1.30 MEDENT ([facility]) Glomerular Filtration Rate 51.8 MED ENT ([facility]) <content>Units are mL/min/1.73 m2</content>
<content></content>
<content>Chronic Kidney Disease Staging per NKF:</content>
<content></content>
<content>Stage I & II GFR >=60 Normal to Mildly Decreased</content>
<content>Stage III GFR 30- 59 Moderately Decreased</content>
<content>Stage IV GFR 15-29 Severely Decreased</content>
<content>Stage V GFR <15 Very Little GFR Left</content>
<content>ESRD GFR <15 on C ARCHITECT</content>
<content></content> Sodium Level 135 meq/L 136-145 MEDENT ([facility]) Chloride Level 100 meq/L 98-107 MED[facility] ([facility]) Potassium Serum 3.8 meq/L 3.5-5.1 MED[facility] ([facility]) Anion Gap 7 meq/L 8-16 [facility] [facility] Calcium Level 9.6 mg/dL 8.8-10.2 MED[facility] ([facility]) Carbon Dioxide Level 28 meq/L 21-32 MED[facility] ([facility]) ID Date Data Source [id number] 03/17/2021 10:01:00 AM EDT MEDENT ([facility]) Name Value Range Interpretation Code Description Data Natalie rce(s) Supporting Document(s) Lipoprotein lipase [Enzymatic activity/volume] in Serum or P lasma 140 U/L 73-393 MED[facility] ([facility]) ID Date Data Source [id number] 02/23/2021 01:32:00 PM EDT MED[facility] ([facility]) Name Value Range Interpretation Code Description Data Natalie rce(s) Supporting Document(s) Lyme Disease IgG/IgM Antibodie Laboratory test result 0.00-0.90 MEDENT ([facility]) <content>Negative <0.91</content >
<content>Equivocal 0.91 - 1.09</content>
<content>Positive >1.09</content>
<content></content> Lyme Disease IgM Ab Quantitati Laboratory test result 0.00-0.79 [facility] ([facility]) <content>Negative <0.80</content >
<content>Equivocal 0.80 - 1.19</content>
<content>Positive >1.19</content>
<content>.</content>
<content>IgM levels may peak at 3-6 weeks post infection, then</content>
<content>gradually decline.</content>
<content>Performed at: RN - [facility]</content>
<content>[address] [place] [address] [id number]</content>
<content>Accounting File Clerk: Beverly Smith MD, Phone: [phone]</content>
<content></content> ID Date Data Source [id number] 02/23/2021 01:32:00 PM EDT [facility] Name Value Range Interpretation Code Description Data Natalie rce(s) Supporting Document(s) Urine Color Laboratory test result MEDEN T ([facility]) Urine Appearance Laboratory test result [facility] ([facility]) Urine PH 6.0 units 5.0-9.0 [facility] [facility] Specific gravity of Urine 1.020 1.005-1.030 ME DENT ([facility]) Urine Leukocytes Laboratory test result [facility] ([facility]) Urine Blood Laboratory test result MEDEN T ([facility]) Urine Protein Laboratory test result 0-0 Abnormal (applies to non-numeric results) MED[facility] ([facility]) Glucose [Presence] in Urine Laboratory test result Abnormal (applies to non- numeric results) MEDENT ([facility]) Urine Ketone Laboratory test result MEDE NT ([facility]) Urine Nitrite Laboratory test result MED ENT ([facility]) Bilirubin.total [Mass/volume] in Serum or Plasma Laboratory test resu lt [facility] ([facility]) Urine Urobilinogen 0.2 mg/dL 0.2-1.0 [facility]) ID Date Data Source [id number] 02/23/2021 01:32:00 PM EDT [facility]) Name Value Range Interpretation Code Description Data Natalie rce(s) Supporting Document(s) Thyrotropin [Units/volume] in Serum or Plasma by Detec tion limit <= 0.05 mIU/L 1.17 uIU/mL 0.36-3.74 [facility] ) ID Date Data Source [id number] 02/23/2021 01:32:00 PM EDT [facility]) Name Value Range Interpretation Code Description Data Natalie rce(s) Supporting Document(s) Glucose [Mass/volume] in Serum or Plasma 326 mg/dL 74-99 MEDENT ([facility]) 100-125 mg/dL PRE-DIABETES/FASTING >126 mg/dL DIABETES/FASTING Sodium [Moles/volume] in Serum or Plasma 133 meq/L 136-145 MEDENT ([facility]) Creatinine 1.5 mg/dL 0.6-1.3 [facility] ([facility]) Urea nitrogen [Mass/volume] in Serum or Plasma 24 mg/dL 7-18 MEDENT ([facility]) Chloride [Moles/volume] in Serum or Plasma 96 meq/L 98-107 MED[facility] ([facility]) Potassium [Moles/volume] in Serum or Plasma 4.0 meq/L 3.5-5.1 [facility]) Calcium [Mass/volume] in Serum or Plasma 9.7 mg/dL 8.5-10.1 [facility]) Glomerular filtration rate/1.73 sq M pre dicted among non-blacks [Volume Rate/Area] in Serum or Plasma by Creatinine-based formula (MDRD) 46 mL/min [facility]) Carbon dioxide, total [Moles/volume] in Serum or Plasma 27 meq/L 21 -32 [facility] [facility] Glomerular filtration rate/1.73 sq M pre dicted among blacks [Volume Rate/Area] in Serum or Plasma by Creatinine-based formula (MDRD) 56 mL/min [facility] [facility] <content>CHRONIC KIDNEY DISEASE STAGING PER NKF</content>
<content></content>
<content>STAGE I & II GFR >= 60 NORMAL TO MILDLY DECREASED</content>
<content>STAGE III GFR 30-59 MODERATELY DECREASED</content>
<content>STAGE IV GFR 15-29 SEVERELY DECREASED</content>
<content>STAGE V GFR <15 VERY LITTLE GFR LEFT</content>
<content>ESRD GFR <15 ON C ARCHITECT</content>
<content></content> ID Date Data Source [id number] 02/23/2021 01:32:00 PM EDT [facility] Name Value Range Interpretation Code Description Data Natalie rce(s) Supporting Document(s) Leukocytes [#/volume] in Blood by Automated count 8.7 x10*3/UL 4.1-10 .9 [facility] [facility] Hemoglobin [Mass/volume] in Blood 13.8 g/dL 12.0-18.0 [facility] [facility] Erythrocytes [#/volume] in Blood by Automated count 4.53 x10*6/UL 4.2 0-6.30 [facility] [facility] MCV 87.6 fL 80.0-97.0 [facility]) Hematocrit [Volume Fraction] of Blood by Automated count 39.7 % 3 7.0-51.0 [facility]) MCHC 34.9 g/dL 31.0-38.0 [facility] ([facility]) MCH 30.6 pg 26.0-32.0 [facility]) Erythrocyte distribution width [Ratio] by Automated count 13.1 % 11.6-13.7 [facility] [facility] Platelets [#/volume] in Blood by Automated count 219 x10*3/UL 140-440 MED[facility] ([facility]) MPV 8.0 FL 7.8-11.0 [facility] ([place] [facility]) Neut % 70.8 % 37.0-92.0 [facility] ([place] [facility]) Mid % 5.4 % 1.7-9.3 [facility] ([place] [facility]) Lymph % 23.8 % 10.0-58.5 [facility] ([place] [facility]) Lymph # 2.0 x10*3/UL 0.6-4.1 [facility] ([facility]) Mid # 0.6 x10*3/UL 0.1-0.6 [facility] ([facility]) Neut # 6.1 x10*3/UL 2.0-7.8 [facility] ([facility]) ID Date Data Source [id number] 01/05/2021 11:19:00 AM EST [facility] Name Value Range Interpretation Code Description Data Natalie rce(s) Supporting Document(s) Hemoglobin A1c/Hemoglobin.total in Blood 11.6 % [facility] [facility] NOTE: RESULT VERIFIED. Lab Result Notes: Pre-Diabetes 5.7 - 6.4 % Diabetes = or > 6.5% Glucose mean value [Mass/volume] in Blood Estimated fr om glycated hemoglobin 286 mg/dL 60-110 [facility] [facility] ID Date Data Source [id number] 01/05/2021 11:19:00 AM EST [facility] Name Value Range Interpretation Code Description Data Natalie rce(s) Supporting Document(s) Thyrotropin [Units/volume] in Serum or Plasma by Detec tion limit <= 0.05 mIU/L 1.67 uIU/mL 0.36-3.74 [facility] [facility] ID Date Data Source [id number] 01/05/2021 11:19:00 AM EST [facility] Name Value Range Interpretation Code Description Data Natalie rce(s) Supporting Document(s) Glucose [Mass/volume] in Serum or Plasma 395 mg/dL 74-99 [facility]) NOTE: RESULT VERIFIED. 100-125 mg/dL PRE-DIABETES/FASTING >126 mg/dL DIABETES/FASTING Creatinine 1.4 mg/dL 0.6-1.3 MED[facility] ([facility]) Urea nitrogen [Mass/volume] in Serum or Plasma 18 mg/dL 7-18 MED[facility] ([facility]) Potassium [Moles/volume] in Serum or Plasma 4.4 meq/L 3.5-5.1 MED[facility] ([facility]) Sodium [Moles/volume] in Serum or Plasma 133 meq/L 136-145 MED[facility] ([facility]) NOTE: RESULT VERIFIED. Chloride [Moles/volume] in Serum or Plasma 96 meq/L 98-107 MED[facility] ([facility]) Carbon dioxide, total [Moles/volume] in Serum or Plasma 28 meq/L 21 -32 MED[facility] ([facility]) Total Bilirubin 0.5 mg/dL 0.2-1.0 [facility] ([facility]) Alkaline phosphatase isoenzyme [Units/volume] in Serum or Pl asma 95 mg/dL 46-116 MED[facility] ([facility]) Calcium [Mass/volume] in Serum or Plasma 9.5 mg/dL 8.5-10.1 [facility] ([facility]) Alanine aminotransferase [Enzymatic activity/volume] in Seru m or Plasma 64 U/L 12-78 MED[facility] ([facility]) Aspartate aminotransferase [Enzymatic activity/volume] in Serum or Plasma 43 U/L 15-37 [facility] ([facility] ) Proteinase 3 Ab [Units/volume] in Serum 8.4 g/dL 6.4-8.2 [facility] ([facility]) A/G Ratio 0.75 CALC 1.00-1.90 [facility] ([place] [facility]) Albumin [Mass/volume] in Serum or Plasma 3.6 g/dL 3.4-5.0 MED[facility] ([facility]) Glomerular filtration rate/1.73 sq M pre dicted among blacks [Volume Rate/Area] in Serum or Plasma by Creatinine-based formula (MDRD) Laboratory test result MEDENT ([facility]) <content>CHRONIC KIDNEY DISEASE STAGING PER NKF</content>
<content></content>
<content>STAGE I & II GFR >= 60 NORMAL TO MILDLY DECREASED</content>
<content>STAGE III GFR 30-59 MODERATELY DECREASED</content>
<content>STAGE IV GFR 15-29 SEVERELY DECREASED</content>
<content>STAGE V GFR <15 VERY LITTLE GFR LEFT</content>
<content>ESRD GFR <15 ON C ARCHITECT</content>
<content></content> Glomerular filtration rate/1.73 sq M pre dicted among non-blacks [Volume Rate/Area] in Serum or Plasma by Creatinine-based formula (MDRD) 50 mL/min [facility] ([facility]) ID Date Data Source [id number] 01/05/2021 11:19:00 AM EST MED[facility] ([facility]) Name Value Range Interpretation Code Description Data Natalie rce(s) Supporting Document(s) Leukocytes [#/volume] in Blood by Automated count 9.0 x10*3/UL 4.1-10 .9 MED[facility] ([facility]) Erythrocytes [#/volume] in Blood by Automated count 4.63 x10*6/UL 4.2 0-6.30 [facility] ([facility]) Hematocrit [Volume Fraction] of Blood by Automated count 40.5 % 3 7.0-51.0 [facility] ([facility]) Hemoglobin [Mass/volume] in Blood 14.1 g/dL 12.0-18.0 [facility] ([facility]) MCV 87.5 fL 80.0-97.0 [facility] ([place] [facility] MCHC 34.8 g/dL 31.0-38.0 [facility] ([place] [facility] MCH 30.4 pg 26.0-32.0 [facility] ([place] [facility] Platelets [#/volume] in Blood by Automated count 225 x10*3/UL 140-440 MED[facility] ([facility]) Erythrocyte distribution width [Ratio] by Automated count 12.7 % 11.6-13.7 [facility] ([facility]) Lymph % 23.1 % 10.0-58.5 [facility] ([place] [facility]) Mid % 5.4 % 1.7-9.3 [facility] ([place] [facility]) MPV 8.1 FL 7.8-11.0 [facility] ([place] [facility]) Neut % 71.5 % 37.0-92.0 [facility] ([place] [facility]) Lymph # 2.0 x10*3/UL 0.6-4.1 [facility] ([facility]) Neut # 6.4 x10*3/UL 2.0-7.8 [facility] ([facility]) Mid # 0.6 x10*3/UL 0.1-0.6 [facility] ([facility]) ID Date Data Source [id number] 01/05/2021 11:19:00 AM EST MED[facility] ([facility]) Name Value Range Interpretation Code Description Data Natalie rce(s) Supporting Document(s) Hemoglobin A1c/Hemoglobin.total in Blood Laboratory test result [facility]) ID Date Data Source [id number] 12/24/2020 11:31:00 AM EST MEDENT ([facility]) Name Value Range Interpretation Code Description Data Natalie rce(s) Supporting Document(s) Natriuretic peptide.B prohormone N-Terminal [Mass/volu me] in Serum or Plasma 30 pg/mL [facility]) ID Date Data Source [id number] 12/24/2020 11:31:00 AM EST [facility] Name Value Range Interpretation Code Description Data Natalie rce(s) Supporting Document(s) Glucose, Fasting 353 mg/dL 70-100 [facility] Creatinine For GFR 1.50 mg/dL 0.70-1.30 [facility] ([facility]) Blood Urea Nitrogen 26 mg/dL 7-18 [facility] ([facility]) Sodium Level 136 meq/L 136-145 [facility] ([facility]) Glomerular Filtration Rate 49.1 MED ENT ([facility]) <content>Units are mL/min/1.73 m2</content>
<content></content>
<content>Chronic Kidney Disease Staging per NKF:</content>
<content></content>
<content>Stage I & II GFR >=60 Normal to Mildly Decreased</content>
<content>Stage III GFR 30- 59 Moderately Decreased</content>
<content>Stage IV GFR 15-29 Severely Decreased</content>
<content>Stage V GFR <15 Very Little GFR Left</content>
<content>ESRD GFR <15 on C ARCHITECT</content>
<content></content> Potassium Serum 4.1 meq/L 3.5-5.1 [facility] ([facility]) Chloride Level 98 meq/L 98-107 MED[facility] ([facility]) Carbon Dioxide Level 29 meq/L 21-32 MED[facility] ([facility]) Calcium Level 10.0 mg/dL 8.8-10.2 [facility] ([facility]) Anion Gap 9 meq/L 8-16 [facility] ID Date Data Source [id number] 12/24/2020 11:31:00 AM EST MEDENT ([facility]) Name Value Range Interpretation Code Description Data Natalie rce(s) Supporting Document(s) Natriuretic peptide.B prohormone N-Terminal [Mass/volu me] in Serum or Plasma 30 pg/mL MED[facility] ([facility] ) ID Date Data Source [id number] 12/24/2020 11:31:00 AM EST MED[facility] ([facility]) Name Value Range Interpretation Code Description Data Natalie rce(s) Supporting Document(s) Glucose, Fasting 353 mg/dL 70-100 MED[facility] ([facility]) Blood Urea Nitrogen 26 mg/dL 7-18 MED[facility] ([facility]) Glomerular Filtration Rate 49.1 MED ENT ([facility] [facility]) <content>Units are mL/min/1.73 m2</content>
<content></content>
<content>Chronic Kidney Disease Staging per NKF:</content>
<content></content>
<content>Stage I & II GFR >=60 Normal to Mildly Decreased</content>
<content>Stage III GFR 30- 59 Moderately Decreased</content>
<content>Stage IV GFR 15-29 Severely Decreased</content>
<content>Stage V GFR <15 Very Little GFR Left</content>
<content>ESRD GFR <15 on C ARCHITECT</content>
<content></content> Creatinine For GFR 1.50 mg/dL 0.70-1.30 [facility] Potassium Serum 4.1 meq/L 3.5-5.1 [facility] ([facility]) Sodium Level 136 meq/L 136-145 [facility] ([place] [facility]) Chloride Level 98 meq/L 98-107 [facility] Carbon Dioxide Level 29 meq/L 21-32 [facility] Calcium Level 10.0 mg/dL 8.8-10.2 [facility] Anion Gap 9 meq/L 8-16 [facility] ([facility]) ID Date Data Source [id number] 10/01/2020 12:00:00 AM [facility] Imaging Kalpesh Pollack Jr, MD Patient Name: MAC GROSS[age] [facility] 1950[facility] [id number] Date of Exam: 10/01/2020#: Fax: [phone] EXAM: [...] rce(s) Supporting Document(s) ID Date Data Source [id number] 09/22/2020 07:53:00 PM [facility] ED Physician Documentation NAME: MAC GROSS : 1950 AGE: 70 MR#: [id number] SERVICE DATE: 09/22/[address]: Reji Bustos [...] such symptoms and referred to GI in [place] who concurred but refrained to re-scope but [...] % (Auto) 65.5, Lymph % (Auto) 24.3, Desha % (Auto) 6.7, Eos % (Auto) 2.6, Baso % (Auto) 0.6, Lymph # (Auto) 1.9, Abs Immat Gran (auto) 0.0, Add Manual Diff No, Absolute Neutrophils 5.2, Monocytes # 0.5, Absolute Eosinophils 0.2, Absolute Basophils 0.1 09/22/20 18:40: PT 10.6, INR 1.0, PTT ([place]) 26.7 09/22/20 18:40: Sodium 139, Potassium 4.0, Chloride 105, Carbon Dioxide 25, Anion Gap 13, BUN 14, Creatinine 1.2 H, GFR Calculation 60, Glucose 374 H, Calcium 9.0, Total Bilirubin 0.2 L, AST 32, ALT 47, Alkaline Phosphatase 86, Troponin I Less than 0.015, Ktj-J-Izqkwpqzpcr Pept 162.00, Serum Total Protein 7.8, Albumin [...] rce(s) Supporting Document(s) ID Date Data Source [id number] 09/22/2020 07:11:00 PM [facility] [address] [place] [address] [phone] NAME SEX PT STATUS ACCOUNT NUMBER MAC GROSS [facility] ER [id number] ORDERING PHYSICIAN LOCATION MEDICAL RECORD NO. Daniel Pennington MD ER [id number] ATTENDING PHYSICIAN DATE OF DATE OF EXAM/TIME [...] 09/22/2020 (19:11 Eastern Time ) Signed by: Dainel Tristan M.D. Reported By Daniel Tristan MD on 09/22/201910 Signed By Daniel Tristan MD on 09/22/201910 Date Time CC: Kalpesh Pollack M.D.; Daniel Tristan MD Techn: CHRISTIAN Trans Dt/Tm: Trans by: DT Prt Dt/Tm: [id number]: Total DLP = 0.00 mGy-cm Fluoroscopy Time (in secs): Name Value Range Interpretation Code Description Data Natalie rce(s) Supporting Document(s) ID Date Data Source [id number] 09/22/2020 08:17:00 PM [facility] THIS RP PANEL TESTS FOR SARS-CoV -2,(COVID-19)FilmArray Respiratory Panel is a Multiplexed NAAT-PCR testNORMAL VALUE FOR ALL 20 PATHOGENS IS "NOT DETECTED".The FilmArray RP panel detects Influenza A H1,H3 [id number] H1 viruses,Influenza B virus, Respiratory syncytialvirus, Human [...] rce(s) Supporting Document(s) ID Date Data Source [id number] 09/22/2020 06:50:00 PM EST [facility] ([facility]) Name Value Range Interpretation Code Description Data Natalie rce(s) Supporting Document(s) Respiratory pathogens DNA and RNA panel - Nasopharynx by Target amplification with non-probe based detection Laboratory test result KHANH ([facility]) THIS RP PANEL TESTS FOR SARS-CoV-2,(COVID-19) [...] Nph Ql ROMELIA+non-probe ID Date Data Source [id number] 09/22/2020 07:28:00 PM [facility] Name Value Range Interpretation Code Description Data Natalie rce(s) Supporting Document(s) Lipase [Enzymatic activity/volume] in Serum or Plasma 190 U/L 73-3 93 [facility] ID Date Data Source [id number] 09/22/2020 06:57:00 PM [facility] Anticoagulant or Thrombolytic medication : Unknown Name Value Range Interpretation Code Description Data Natalie rce(s) Supporting Document(s) Leukocytes [#/volume] in Blood by Automated count 7.9 10*3/uL 4.45-10 .71 [facility] Erythrocytes [#/volume] in Blood by Automated count 4.03 10*6/uL 4.3-6.1 Below low [facility] Hemoglobin [Moles/volume] in Blood 12.2 g/dL 13-18 Below low no rmal [facility] Hematocrit [Volume Fraction] of Blood by Automated count 36.8 % 42-52 Below low normal [facility] Erythrocyte mean corpuscular volume [Ent itic volume] in Cord blood by Automated count 91.3 fL 80-96 N [facility] ital Erythrocyte mean corpuscular hemoglobin [Entitic mass] by Automated count 30.3 pg 27-31 N [facility] l Erythrocyte mean corpuscular hemoglobin concentration [Mass/volume] in Cord blood 33.2 g/dL 33-37 N [facility] ital Erythrocyte distribution width [Entitic volume] by Automated count 13 % 11-15 N [facility] Platelets [#/volume] in Blood by Automated count 203 10*3/uL 130-472 N [facility] Platelet mean volume [Entitic volume] in Blood 9.7 fL 9.1-13.1 N [facility] Neutrophils/100 leukocytes in Blood by Automated count 65.5 % 41- 77 N [facility] Neutrophils [#/volume] in Blood by Automated count 5.2 U 1.7-7.6 N [facility] Lymphocytes/100 leukocytes in Blood by Automated count 24.3 % 14- 46 N [facility] Lymphocytes [#/volume] in Blood by Automated count 1.9 U 0.6-4.6 N [facility] Monocytes/100 leukocytes in Blood by Automated count 6.7 % 4-12 N [facility] Monocytes [#/volume] in Blood by Automated count 0.5 U 0.2-1.2 N [facility] Eosinophils/100 leukocytes in Blood by Automated count 2.6 % 0-7 [facility] Eosinophils [#/volume] in Blood by Automated count 0.2 U 0.0-0.5 N [facility] Basophils/100 leukocytes in Blood by Automated count 0.6 % 0.4-1 .3 N [facility] Basophils [#/volume] in Blood by Automated count 0.1 U 0.0-0.2 N [facility] NUCLEATED RED BLOOD CELL 0 % [facility] NUCLEATED RED BLOOD CELL# 0 U [facility] Immature granulocytes [Presence] in Blood by Automated count 0-2 [facility] Immature granulocytes [#/volume] in Blood by Automated count 0.0 U 0-0.1 [facility] Manual Differential panel - Blood [facility] ID Date Data Source [id number] 09/22/2020 07:15:00 PM [facility] Anticoagulant or Thrombolytic medication : Unknown Name Value Range Interpretation Code Description Data Natalie rce(s) Supporting Document(s) Prothrombin Time (Patient) 10.6 s 9.6-12.3 N [facility] INR 1.0 0.9-1.1 [facility] THE INR IS OPERATIONALLY DEFINED FOR BILLY SH PLASMA FROMPATIENTS STABILIZED ON ORAL ANTICOAGULANTS.ROUTINE ANTICOAGULANT THERAPY 2.0-3.0RECURRENT SYSTEMIC EMBOLISM/HEART VALVE REPLACEMENT 2.5-3.5 aPTT.lupus sensitive (LA screen) 26.7 s 22.7-31.6 [facility] ID Date Data Source [id number] 09/22/2020 07:26:00 PM [facility] Anticoagulant or Thrombolytic medication : Unknown Name Value Range Interpretation Code Description Data Natalie rce(s) Supporting Document(s) Urea nitrogen [Mass/volume] in Serum or Plasma 14 mg/dL 9-23 [facility] Sodium [Moles/volume] in Serum or Plasma 139 mmol/L 132-146 [facility] Potassium [Moles/volume] in Serum or Plasma 4.0 mmol/L 3.5-5.5 [facility] Chloride [Moles/volume] in Serum or Plasma 105 mmol/L 99-109 [facility] Carbon dioxide, total [Moles/volume] in Serum or Plasma 25 mmol/L 20 -31 [facility] Anion gap in Serum or Plasma 13 mmol/L 8-[address] [facility] Glucose [Mass/volume] in Serum or Plasma 374 mg/dL 74-106 Above high normal [facility] Creatinine 1.2 mg/dL 0.5-1.1 Above high normal [facility] Glomerular filtration rate/1.73 sq M.pre dicted [Volume Rate/Area] in Serum or Plasma 60 ml/min ABOVE 60 [facility] ital Alanine aminotransferase [Enzymatic acti vity/volume] in Serum or Plasma by With P-5'-P 47 U/L 10-49 N [facility] ital Aspartate aminotransferase [Enzymatic ac tivity/volume] in Serum or Plasma by With P-5'-P 32 U/L 0-33 N [facility] pital Alkaline phosphatase [Enzymatic activity/volume] in Serum or Plasma 86 U/L 45-129 N [facility] Calcium [Mass/volume] in Serum or Plasma 9.0 mg/dL 8.5-10.1 [facility] Bilirubin.total [Mass/volume] in Serum or Plasma 0.2 mg/dL 0.3-1.2 Below low normal [facility] Albumin [Mass/volume] in Serum or Plasma by Bromocresol purple (BCP) dye binding method 3.1 g/dL 3.2-4.8 Below low normal [facility] Protein [Mass/volume] in Serum or Plasma 7.8 g/dL 5.7-8.2 [facility] ID Date Data Source [id number] 09/22/2020 07:26:00 PM [facility] Anticoagulant or Thrombolytic medication : Unknown Name Value Range Interpretation Code Description Data Natalie rce(s) Supporting Document(s) Troponin I.cardiac [Mass/volume] in Serum or Plasma Less Than 0.015 0.00-0.09 [facility] Less than 0.09 NG/ML Negative0.10 - 0.77 NG/ML High Risk0.78 NG/ML or Greater PositiveThe WHO defined the cutoff (definition for diagnosis of VA)for this method as 0.78 ng/ml. ID Date Data Source [id number] 09/22/2020 07:26:00 PM [facility] Anticoagulant or Thrombolytic medication : Unknown Name Value Range Interpretation Code Description Data Natalie rce(s) Supporting Document(s) Natriuretic peptide.B prohormone N-Terminal [Mass/volu me] in Serum or Plasma 162.00 pg/mL 0.00-175 [facility] ID Date Data Source [id number] 09/22/2020 06:40:00 PM EST [facility] ([facility]) Name Value Range Interpretation Code Description Data Natalie rce(s) Supporting Document(s) Leukocytes [#/volume] in Blood by Automated count 7.9 10*3/uL 4.45-10 .71 [facility] ([facility]) Erythrocytes [#/volume] in Blood by Automated count 4.03 10*6/uL 4.3- 6.1 [facility] ([facility]) Hemoglobin [Moles/volume] in Blood 12.2 g/dL 13-18 [facility] ([facility]) Hematocrit [Volume Fraction] of Blood by Automated count 36.8 % 4 2-52 [facility] ([facility]) Erythrocyte mean corpuscular volume [Ent itic volume] in Cord blood by Automated count 91.3 fL 80-96 [facility]) Erythrocyte mean corpuscular hemoglobin [Entitic mass] by Automated count 30.3 pg 27-31 [facility] ([facility] ) Erythrocyte mean corpuscular hemoglobin concentration [Mass/volume] in Cord blood 33.2 g/dL 33-37 [facility] Erythrocyte distribution width [Entitic volume] by Automated count 13 % 11-15 [facility] ([facility]) Platelets [#/volume] in Blood by Automated count 203 10*3/uL 130-472 [facility] ([facility]) Platelet mean volume [Entitic volume] in Blood 9.7 fL 9.1-13.1 [facility] ([facility]) Neutrophils/100 leukocytes in Blood by Automated count 65.5 % 41- 77 [facility] ([facility]) Lymphocytes/100 leukocytes in Blood by Automated count 24.3 % 14- 46 [facility] ([facility]) Neutrophils [#/volume] in Blood by Automated count 5.2 U 1.7-7.6 [facility] ([facility]) Lymphocytes [#/volume] in Blood by Automated count 1.9 U 0.6-4.6 [facility] ([facility]) Monocytes/100 leukocytes in Blood by Automated count 6.7 % 4-12 [facility] ([facility]) Monocytes [#/volume] in Blood by Automated count 0.5 U 0.2-1.2 [facility] ([facility]) Eosinophils/100 leukocytes in Blood by Automated count 2.6 % 0-7 [facility] ([facility]) Eosinophils [#/volume] in Blood by Automated count 0.2 U 0.0-0.5 [facility] ([facility]) Basophils/100 leukocytes in Blood by Automated count 0.6 % 0.4-1 .3 [facility] ([facility]) Basophils [#/volume] in Blood by Automated count 0.1 U 0.0-0.2 [facility] Nucleated Red Blood Cell 0 % [facility] Laboratory test finding (navigational concept) 0 U [facility] Immature granulocytes [Presence] in Blood by Automated count 0.3 0-2 [facility] Immature granulocytes [#/volume] in Blood by Automated count 0.0 U 0-0.1 [facility] Manual Differential panel - Blood Laboratory test result [facility] ID Date Data Source [id number] 09/22/2020 06:40:00 PM EST [facility] ([facility]) Name Value Range Interpretation Code Description Data Natalie rce(s) Supporting Document(s) Urea nitrogen [Mass/volume] in Serum or Plasma 14 mg/dL 9-23 [facility] ([facility]) Sodium [Moles/volume] in Serum or Plasma 139 mmol/L 132-146 [facility] ([facility]) Potassium [Moles/volume] in Serum or Plasma 4.0 mmol/L 3.5-5.5 [facility] ([facility]) Chloride [Moles/volume] in Serum or Plasma 105 mmol/L 99-109 [facility] ([facility]) Carbon dioxide, total [Moles/volume] in Serum or Plasma 25 mmol/L 20 -31 [facility] ([facility]) Anion gap in Serum or Plasma 13 mmol/L 8-16 M [facility] ([facility]) Glucose [Mass/volume] in Serum or Plasma 374 mg/dL 74-106 [facility] ([facility]) Creatinine 1.2 mg/dL 0.5-1.1 [facility] Glomerular filtration rate/1.73 sq M.pre dicted [Volume Rate/Area] in Serum or Plasma 60 [facility] ([facility] [place]note 2[place] Alanine aminotransferase [Enzymatic acti vity/volume] in Serum or Plasma by With P-5'-P 47 U/L 10-49 [facility] ([facility] [place][note 2]) Aspartate aminotransferase [Enzymatic ac tivity/volume] in Serum or Plasma by With P-5'-P 32 U/L 0-33 [facility] ([facility]) Alkaline phosphatase [Enzymatic activity/volume] in Serum or Plasma 86 U/L 45-129 [facility] ([facility]) Calcium [Mass/volume] in Serum or Plasma 9.0 mg/dL 8.5-10.1 [facility] ([facility]) Bilirubin.total [Mass/volume] in Serum or Plasma 0.2 mg/dL 0.3-1.2 [facility] ([facility]) Albumin [Mass/volume] in Serum or Plasma by Bromocresol purple (BCP) dye binding method 3.1 g/dL 3.2-4.8 [facility] ([facility] [place][note 2]) Protein [Mass/volume] in Serum or Plasma 7.8 g/dL 5.7-8.2 [facility] ([facility]) ID Date Data Source [id number] 09/22/2020 06:40:00 PM EST [facility] ([facility]) Name Value Range Interpretation Code Description Data Natalie rce(s) Supporting Document(s) Troponin I.cardiac [Mass/volume] in Serum or Plasma Laborato ry test result 0.00-0.09 [facility] Less than 0.09 NG/ML Negative 0.10 - 0.77 NG/ML High Risk 0.78 NG/ML or Greater Positive The WHO defined the cutoff (definition for diagnosis of VA) for this method as 0.78 ng/ml. Natriuretic peptide.B prohormone N-Terminal [Mass/volu me] in Serum or Plasma 162.00 pg/mL 0.00-175 [facility] ID Date Data Source [id number] 09/22/2020 06:40:00 PM EST [facility] ([facility]) Name Value Range Interpretation Code Description Data Natalie rce(s) Supporting Document(s) Lipoprotein lipase [Enzymatic activity/volume] in Serum or P lasma 190 U/L 73-393 [facility] ([facility]) ID Date Data Source [id number] 09/22/2020 06:40:00 PM EST [facility] ([facility]) Name Value Range Interpretation Code Description Data Natalie rce(s) Supporting Document(s) Prothrombin Time (Patient) 10.6 s 9.6-12.3 [facility] ([facility]) CHEST PAIN, SOB Inr 1.0 0.9-1.1 [facility] ([facility]) CHEST PAIN, SOB aPTT.lupus sensitive (LA screen) 26.7 s 22.7-31.6 [facility] ([facility]) CHEST PAIN, SOB ID Date Data Source [id number] 09/22/2020 10:20:00 AM EST [facility] ([facility]) Name Value Range Interpretation Code Description Data Natalie rce(s) Supporting Document(s) Troponin Laboratory test result [facility] ([facility]) Natriuretic peptide.B prohormone N-Terminal [Mass/volu me] in Serum or Plasma 162.00 [facility] ([facility]) ID Date Data Source [id number] 09/22/2020 10:20:00 AM EST [facility] ([facility]) Name Value Range Interpretation Code Description Data Natalie rce(s) Supporting Document(s) Albumin [Mass/volume] in Serum or Plasma 3.1 [facility] ([facility]) Alanine aminotransferase [Enzymatic activity/volume] in Serum or Pl asma 47 [facility] ([facility]) Chloride [Moles/volume] in Serum or Plasma 105 [facility] ([facility]) Calcium [Mass/volume] in Serum or Plasma 9.0 [facility] ([facility]) Carbon dioxide, total [Moles/volume] in Serum or Plasma 25 [facility] ([facility]) Alkaline phosphatase [Enzymatic activity/volume] in Serum or Plasma 8 6 [facility] ([facility]) Sodium 139 [facility] ([facility]) Potassium [Moles/volume] in Serum or Plasma 4.0 [facility] ([facility]) Protein [Mass/volume] in Serum or Plasma 7.8 [facility] ([facility]) Aspartate aminotransferase [Enzymatic activity/volume] in Serum or Plasma 32 [facility] ([facility]) Urea nitrogen [Mass/volume] in Serum or Plasma 14 [facility] ([facility]) Glucose 374 74-106 [facility] ([facility] Creatinine For GFR 1.2 [facility] ([facility]) ID Date Data Source [id number] 09/22/2020 10:20:00 AM EST [facility] ([facility]) Name Value Range Interpretation Code Description Data Natalie rce(s) Supporting Document(s) Platelets 203 130-472 [facility] ([facility] White Blood Count 7.9 4.45-10.71 [facility] ([facility]) Red Blood Count 4.03 4.3-6.1 [facility] ([facility]) Hemoglobin 12.2 13-18 [facility] ([facility]) Hematocrit 36.8 42-52 [facility] ([facility]) ID Date Data Source [id number] 09/22/2020 12:00:00 AM EST [facility] Name Value Range Interpretation Code Description Data Natalie rce(s) Supporting Document(s) SARS-CoV2 Rapid PCR [facility] This lab was ordered by [facility] and reported by [facility]. ID Date Data Source [id number] 09/15/2020 03:53:00 PM EST [facility] ([facility]) Name Value Range Interpretation Code Description Data Natalie rce(s) Supporting Document(s) Microalbumin Urine 2576.5 mg/L 1.3-20.0 [facility] NOTE: DILUTED AND VERIFIED Urine Creatinine 243.6 mg/dL 30.0-125.0 [facility] ([facility]) Microalb/Creat Ratio 1057.7 ug/mg 0.0-30.0 [facility] ([facility]) ID Date Data Source [id number] 09/15/2020 03:53:00 PM EST [facility] ([facility]) Name Value Range Interpretation Code Description Data Natalie rce(s) Supporting Document(s) Urea nitrogen [Mass/volume] in Serum or Plasma 21 mg/dL 7-18 [facility] ([facility]) Glucose [Mass/volume] in Serum or Plasma 345 mg/dL 74-99 [facility] ([facility]) 100-125 mg/dL PRE-DIABETES/FASTING >126 mg/dL DIABETES/FASTING Creatinine 1.3 mg/dL 0.6-1.3 [facility] Potassium [Moles/volume] in Serum or Plasma 3.8 meq/L 3.5-5.1 [facility] ([facility]) Sodium [Moles/volume] in Serum or Plasma 135 meq/L 136-145 [facility] ([facility]) Chloride [Moles/volume] in Serum or Plasma 97 meq/L 98-107 [facility] ([facility]) Carbon dioxide, total [Moles/volume] in Serum or Plasma 28 meq/L 21 -32 [facility] ([facility]) Calcium [Mass/volume] in Serum or Plasma 9.9 mg/dL 8.5-10.1 [facility] ([facility]) Glomerular filtration rate/1.73 sq M pre dicted among non-blacks [Volume Rate/Area] in Serum or Plasma by Creatinine-based formula (MDRD) 54 mL/min [facility] Glomerular filtration rate/1.73 sq M pre dicted among blacks [Volume Rate/Area] in Serum or Plasma by Creatinine-based formula (MDRD) Laboratory test result [facility] <content>CHRONIC KIDNEY DISEASE STAGING PER NKF</content>
<content></content>
<content>STAGE I & II GFR >= 60 NORMAL TO MILDLY DECREASED</content>
<content>STAGE III GFR 30-59 MODERATELY DECREASED</content>
<content>STAGE IV GFR 15-29 SEVERELY DECREASED</content>
<content>STAGE V GFR <15 VERY LITTLE GFR LEFT</content>
<content>ESRD GFR <15 ON C ARCHITECT</content>
<content></content> ID Date Data Source [id number] 09/15/2020 03:53:00 PM EST [facility] ([facility]) Name Value Range Interpretation Code Description Data Natalie rce(s) Supporting Document(s) Glucose mean value [Mass/volume] in Blood Estimated fr om glycated hemoglobin 255 mg/dL 60-110 [facility] Hemoglobin A1c/Hemoglobin.total in Blood 10.5 % [facility] Lab Result Notes: Pre-Diabetes 5.7 - 6.4 % Diabetes = or > 6.5% ID Date Data Source [id number] 09/15/2020 03:53:00 PM EST [facility] ([facility]) Name Value Range Interpretation Code Description Data Natalie rce(s) Supporting Document(s) Leukocytes [#/volume] in Blood by Automated count 11.1 x10*3/UL 4.1-1 0.9 [facility] Erythrocytes [#/volume] in Blood by Automated count 4.73 x10*6/UL 4.2 0-6.30 [facility] Hemoglobin [Mass/volume] in Blood 14.6 g/dL 12.0-18.0 [facility] Hematocrit [Volume Fraction] of Blood by Automated count 41.1 % 3 7.0-51.0 [facility] ([facility]) MCV 86.8 fL 80.0-97.0 [facility] MCH 30.9 pg 26.0-32.0 [facility] ([facility]) Erythrocyte distribution width [Ratio] by Automated count 13.4 % 11.6-13.7 [facility] MCHC 35.5 g/dL 31.0-38.0 [facility] Platelets [#/volume] in Blood by Automated count 237 x10*3/UL 140-440 [facility] ([facility]) Lymph % 21.0 % 10.0-58.5 [facility] MPV 8.0 FL 7.8-11.0 [facility] Mid % 5.6 % 1.7-9.3 [facility] Neut % 73.4 % 37.0-92.0 [facility] Lymph # 2.3 x10*3/UL 0.6-4.1 [facility] ([facility]) Neut # 8.1 x10*3/UL 2.0-7.8 [facility] ([facility]) Mid # 0.7 x10*3/UL 0.1-0.6 [facility] ([facility]) ID Date Data Source [id number] 09/14/2020 03:39:00 PM EST [facility] [address] [facility] [address] [place] [id number] [phone] NAME SEX PT STATUS ACCOUNT NUMBER MAC GROSS [facility] ER [id number] ORDERING PHYSICIAN LOCATION MEDICAL RECORD NO. Reji Bustos MD ER [id number] ATTENDING PHYSICIAN DATE OF DATE OF EXAM/TIME [...] Trans Dt/Tm: Trans by: DT Prt Dt/Tm: [id number]: Total DLP = 0.00 mGy-cm Fluoroscopy Time (in secs): Name Value Range Interpretation Code Description Data Natalie rce(s) Supporting Document(s) ID Date Data Source [id number] 09/10/2020 09:52:00 PM EDT [facility] ED Physician Documentation NAME: MAC GROSS : 1950 AGE: 70 MR#: [id number] SERVICE DATE: 09/10/[address]: Reji Bustos MD PRIMARY CARE DR: Kalpesh Pollack M.D. ROOM#: [facility] (Adult, General) General Chief Complaint: GI [...] he does have a GI doctor in [place] who scoped him 2 years ago and [...] (Auto) 78.2 H, Lymph % (Auto) 14.6, Desha % (Auto) 4.6, Eos % (Auto) 1.8, [...] by me: CXR NAPD COPD Radiology impressions: [facility] [address] [place] [id number] [phone] NAMESEX PT STATUSACCOUNT NUMBER MAC GROSS AM REG [id number] ORDERING PHYSICIANLOCATIONMEDICAL RECORD NO. Reji Bustos [id number] [...] in am see your GI MD in [place] this week for repeat upper endoscopy salty [...] rce(s) Supporting Document(s) ID Date Data Source [id number] 09/13/2020 09:08:00 PM EST [facility] Name Value Range Interpretation Code Description Data Natalie rce(s) Supporting Document(s) Hepatitis B virus surface Ag [Presence] in Serum or Plasma b y Immunoassay NON-REACTIVE [facility] Hepatitis B Core IgM Ab NON-REACTIVE NON-REACTIVE [facility] Virus identified in Unspecified specimen NON-REACTIVE [facility] For additional information, please refer tohttp://[email or web address]/faq/ABQ447(This link is being provided for informational/educational purposes only.)NON-REACTIVE0.07HCV antibody was n on-reactive. There is no laboratoryevidence of HCV infection.In most cases, no further action is required. However,if recent HCV exposure is suspected, a test for HCV RNA(test code 21717) is suggested.For additional information please refer tohttp://[employer]/faq/ZJQ41b4(This link is being provided for informational/educational purposes only.)THIS TEST WAS PERFORMED AT:[address]Jazmin ESCOBAR Reportable ResultNo Reportable Result Hepatitis C virus Ab [Presence] in Serum or Plasma by Immuno assay NON-REACTIVE [facility] 0.07HCV antibody was non-reactive. There is no laboratoryevidence of HCV infection.In most cases, no further action is required. However,if recent HCV exposure is suspected, a test for HCV RNA(test code 44716) is suggested.For additional information please refer tohttp://[employer]/faq/EUK14g0(This link is being provided for informational/educational purposes only.)THIS TEST WAS PERFORMED AT:[address] [address]Jazmin ESCOBAR Reportable Result Hepatitis C virus Ab Signal/Cutoff in Serum or Plasma by Imm unoassay 0.07 <1.00 [facility] HCV antibody was non-reactive. There is no laboratoryevidence of HCV infection.In most cases, no further action is required. However,if recent HCV exposure is suspected, a test for HCV RNA(test code 03230) is suggested.For additional information please refer tohttp://education.[employer]/faq/FOI17g9(This link is being provided for informational/educational purposes only.)THIS TEST WAS PERFORMED AT:[address] [address]CHRISTINE MILLER MD ID Date Data Source [id number] 09/10/2020 08:55:00 PM EDT [facility] ([facility]) Name Value Range Interpretation Code Description Data Natalie rce(s) Supporting Document(s) Hepatitis B virus surface Ag [Presence] in Serum or Pl asma by Immunoassay Laboratory test result 0-0 [facility] ([facility]) STOMACH PAIN Laboratory test finding (navigational concept) Laboratory test result 0-0 [facility] ([facility]) STOMACH PAIN Virus identified in Unspecified specimen Laboratory test result 0-0 [facility] ([facility]) STOMACH PAIN Hepatitis C virus Ab [Presence] in Serum or Plasma by Immunoassay Laboratory test result 0-0 [facility] ([facility] ) STOMACH PAIN Hepatitis C virus Ab Signal/Cutoff in Serum or Plasma by Immunoassay Laboratory test result [facility] ([facility] ) STOMACH PAIN ID Date Data Source [id number] 09/10/2020 08:29:00 PM EDT [facility] [address] [place] [address] [phone] NAME SEX PT STATUS ACCOUNT NUMBER MAC GROSS Rolf [facility] [id number] ORDERING PHYSICIAN LOCATION MEDICAL RECORD NO. Reji Bustos MD ER [id number] ATTENDING PHYSICIAN DATE OF DATE OF EXAM/TIME [...] rce(s) Supporting Document(s) ID Date Data Source [id number] 09/15/2020 07:56:00 PM [facility] Special Instructions: Lab may order repe at test if initial test elevatedPhysician If elevated, reflex second test in 4-6 hrs @09/10/20 2011: MANUAL DIFF added. RFLXG = DIFF. @09/10/20 2011: MANUAL DIFF added. RFLXG = DIFF. Name Value Range Interpretation Code Description Data Natalie rce(s) Supporting Document(s) Bacteria identified in Blood by Culture [facility] NO GROWTH AFTER 5 DAYS ID Date Data Source [id number] 09/10[facility]2020 [facility]: Lab may order repe at test if initial test elevatedPhysician If elevated, reflex second test in 4-6 hrs @09/10/20 2011: MANUAL DIFF added. RFLXG = DIFF. @09/10/20 2011: MANUAL DIFF added. RFLXG = DIFF. Name Value Range Interpretation Code Description Data Natalie rce(s) Supporting Document(s) Lactic w Rfx (if elevated) 1.9 mmol/L 0.5-2.2 N [facility] ID Date Data Source [id number] 09/10/2020 08:33:00 PM [facility] Special Instructions: Lab may order repe at test if initial test elevatedPhysician If elevated, reflex second test in 4-6 hrs @09/10/20 2011: MANUAL DIFF added. RFLXG = DIFF. @09/10/20 2011: MANUAL DIFF added. RFLXG = DIFF. Name Value Range Interpretation Code Description Data Natalie rce(s) Supporting Document(s) Urea nitrogen [Mass/volume] in Serum or Plasma 22 mg/dL 9-23 N [facility] Sodium [Moles/volume] in Serum or Plasma 134 mmol/L 132-146 N [facility] Potassium [Moles/volume] in Serum or Plasma 4.4 mmol/L 3.5-5.5 [facility] Chloride [Moles/volume] in Serum or Plasma 100 mmol/L 99-109 N [facility] Carbon dioxide, total [Moles/volume] in Serum or Plasma 25 mmol/L 20 -31 N [facility] Anion gap in Serum or Plasma 13 mmol/L 8-16 N L [facility] Glucose [Mass/volume] in Serum or Plasma 311 mg/dL 74-106 Above high normal [facility] Creatinine 1.2 mg/dL 0.5-1.1 Above high normal [facility] Glomerular filtration rate/1.73 sq M.pre dicted [Volume Rate/Area] in Serum or Plasma 60 ml/min ABOVE 60 [facility] ital Alanine aminotransferase [Enzymatic acti vity/volume] in Serum or Plasma by With P-5'-P 58 U/L 10-49 Above high normal [facility] Aspartate aminotransferase [Enzymatic ac tivity/volume] in Serum or Plasma by With P-5'-P 54 U/L 0-33 Above high normal [facility] Alkaline phosphatase [Enzymatic activity/volume] in Serum or Plasma 87 U/L 45-129 N [facility] Calcium [Mass/volume] in Serum or Plasma 9.7 mg/dL 8.5-10.1 N [facility] Bilirubin.total [Mass/volume] in Serum or Plasma 0.3 mg/dL 0.3-1.2 N [facility] Albumin [Mass/volume] in Serum or Plasma by Bromocresol purple (BCP) dye binding method 3.2 g/dL 3.2-4.8 N [facility] ital Protein [Mass/volume] in Serum or Plasma 8.7 g/dL 5.7-8.2 Above [facility] normal [facility] ID Date Data Source [id number] 09/10/2020 08:36:00 PM EDT [facility] Special Instructions: Lab may order repe at test if initial test elevatedPhysician If elevated, reflex second test in 4-6 hrs @09/10/20 2011: MANUAL DIFF added. RFLXG = DIFF. @09/10/202010: MANUAL DIFF added. RFLXG = DIFF. Name Value Range Interpretation Code Description Data Natalie rce(s) Supporting Document(s) Leukocytes [#/volume] in Blood by Automated count 11.3 10*3/uL 4.45-10.71 Above high normal [facility] Erythrocytes [#/volume] in Blood by Automated count 4.51 10*6/uL 4.3- 6.1 N [facility] Hemoglobin [Moles/volume] in Blood 13.5 g/dL 13-18 N [facility] Hematocrit [Volume Fraction] of Blood by Automated count 40.4 % 42-52 Below low normal [facility] Erythrocyte mean corpuscular volume [Ent itic volume] in Cord blood by Automated count 89.6 fL 80-96 N [facility] ital Erythrocyte mean corpuscular hemoglobin [Entitic mass] by Automated count 29.9 pg 27-31 N [facility] Erythrocyte mean corpuscular hemoglobin concentration [Mass/volume] in Cord blood 33.4 g/dL 33-37 N [facility] ital Erythrocyte distribution width [Entitic volume] by Automated count 13 % 11-15 N [facility] Platelets [#/volume] in Blood by Automated count 225 10*3/uL 130-472 N [facility] Platelet mean volume [Entitic volume] in Blood 9.5 fL 9.1-13.1 N [facility] Neutrophils/100 leukocytes in Blood by Automated count 78.2 % 41-77 Above high normal [facility] Neutrophils [#/volume] in Blood by Automated count 8.8 U 1.7-7.6 Above high normal [facility] Lymphocytes/100 leukocytes in Blood by Automated count 14.6 % 14- 46 N [facility] Lymphocytes [#/volume] in Blood by Automated count 1.7 U 0.6-4.6 N [facility] Monocytes/100 leukocytes in Blood by Automated count 4.6 % 4-12 N [facility] Monocytes [#/volume] in Blood by Automated count 0.5 U 0.2-1.2 N [facility] Eosinophils/100 leukocytes in Blood by Automated count 1.8 % 0-7 N [facility] Eosinophils [#/volume] in Blood by Automated count 0.2 U 0.0-0.5 N [facility] Basophils/100 leukocytes in Blood by Automated count 0.4 % 0.4-1 .3 N [facility] Basophils [#/volume] in Blood by Automated count 0.1 U 0.0-0.2 [facility] NUCLEATED RED BLOOD CELL 0 % [facility] NUCLEATED RED BLOOD CELL# 0 U [facility] Immature granulocytes [Presence] in Blood by Automated count 0-2 N [facility] Immature granulocytes [#/volume] in Blood by Automated count 0.0 U 0-0.1 N [facility] Manual Differential panel - Blood Manual Diff Added [facility] ID Date Data Source [id number] 09/10/2020 08:33:00 PM EDT [facility] Special Instructions: Lab may order repe at test if initial test elevatedPhysician If elevated, reflex second test in 4-6 hrs @09/10/20 2011: MANUAL DIFF added. RFLXG = DIFF. @09/10/20 2011: MANUAL DIFF added. RFLXG = DIFF. Name Value Range Interpretation Code Description Data Natalie rce(s) Supporting Document(s) Amylase [Enzymatic activity/volume] in Serum or Plasma 53 U/L 30- 118 N [facility] ID Date Data Source [id number] 09/10/2020 08:36:00 PM EDT [facility] Special Instructions: Lab may order repe at test if initial test elevatedPhysician If elevated, reflex second test in 4-6 hrs @09/10/20 2011: MANUAL DIFF added. RFLXG = DIFF. @09/10/20 2011: MANUAL DIFF added. RFLXG = DIFF. Name Value Range Interpretation Code Description Data Natalie rce(s) Supporting Document(s) Cells counted [#] 100 [facility] Neutrophils [#/volume] in Blood by Manual count 81 % 41-77 Above high normal [facility] Lymphocytes [#/volume] in Blood by Manual count 15 % 14-46 N [facility] Monocytes [#/volume] in Blood by Manual count 4 % 4-12 N [facility] Platelets [#/volume] in Blood by Estimate APPEARS NORMAL NORMAL [facility] Morphology [Interpretation] in Blood Narrative APPEARS NORMAL NORMAL [facility] ID Date Data Source [id number] 09/10/2020 08:33:00 PM EDT [facility] Special Instructions: Lab may order repe at test if initial test elevatedPhysician If elevated, reflex second test in 4-6 hrs @09/10/20 2011: MANUAL DIFF added. RFLXG = DIFF. @09/10/20 2011: MANUAL DIFF added. RFLXG = DIFF. Name Value Range Interpretation Code Description Data Natalie rce(s) Supporting Document(s) Lipase [Enzymatic activity/volume] in Serum or Plasma 170 U/L 73-3 93 N [facility] ID Date Data Source [id number] 09/10/2020 08:33:00 PM EDT [facility] Special Instructions: Lab may order repe at test if initial test elevatedPhysician If elevated, reflex second test in 4-6 hrs @09/10/20 2011: MANUAL DIFF added. RFLXG = DIFF. @09/10/202010: MANUAL DIFF added. RFLXG = DIFF. Name Value Range Interpretation Code Description Data Natalie rce(s) Supporting Document(s) Troponin I.cardiac [Mass/volume] in Serum or Plasma Less Than 0.015 0.00-0.09 [facility] Less than 0.09 NG/ML Negative0.10 - 0.77 NG/ML High Risk0.78 NG/ML or Greater PositiveThe WHO defined the cutoff (definition for diagnosis of VA)for this method as 0.78 ng/ml. ID Date Data Source [id number] 09/10/2020 07:50:00 PM EDT [facility] ([facility]) Name Value Range Interpretation Code Description Data Natalie rce(s) Supporting Document(s) Bacteria identified in Blood by Culture Laboratory test result [facility] ([facility]) NO GROWTH AFTER 5 DAYS ID Date Data Source [id number] 09/10/2020 07:50:00 PM EDT [facility] ([facility]) Name Value Range Interpretation Code Description Data Natalie rce(s) Supporting Document(s) Cells counted [#] 100 [facility] ([facility]) Neutrophils [#/volume] in Blood by Manual count 81 % 41-77 [facility] ([facility]) Lymphocytes [#/volume] in Blood by Manual count 15 % 14-46 [facility] ([facility]) Monocytes [#/volume] in Blood by Manual count 4 % 4-12 [facility] ([facility]) Platelets [#/volume] in Blood by Estimate Laboratory test result [facility] ([facility]) Morphology [Interpretation] in Blood Narrative Laboratory test result [facility] ([facility]) ID Date Data Source [id number] 09/10/2020 07:50:00 PM [facility] Name Value Range Interpretation Code Description Data Natalie rce(s) Supporting Document(s) Amylase [Enzymatic activity/volume] in Serum or Plasma 53 U/L 30- 118 [facility] ([facility]) Lipoprotein lipase [Enzymatic activity/volume] in Serum or P lasma 170 U/L 73-393 [facility] ([facility]) Troponin I.cardiac [Mass/volume] in Serum or Plasma Laborato ry test result 0.00-0.09 [facility] Less than 0.09 NG/ML Negative 0.10 - 0.77 NG/ML High Risk 0.78 NG/ML or Greater Positive The WHO defined the cutoff (definition for diagnosis of VA) for this method as 0.78 ng/ml. ID Date Data Source [id number] 09/10/2020 07:50:00 PM EDT [facility] Name Value Range Interpretation Code Description Data Natalie rce(s) Supporting Document(s) Urea nitrogen [Mass/volume] in Serum or Plasma 22 mg/dL 9-23 [facility] ([facility]) Sodium [Moles/volume] in Serum or Plasma 134 mmol/L 132-146 [facility] ([facility]) Potassium [Moles/volume] in Serum or Plasma 4.4 mmol/L 3.5-5.5 [facility] ([facility]) Chloride [Moles/volume] in Serum or Plasma 100 mmol/L 99-109 [facility] ([facility]) Carbon dioxide, total [Moles/volume] in Serum or Plasma 25 mmol/L 20 -31 [facility] ([facility]) Anion gap in Serum or Plasma 13 mmol/L 8-16 M [facility]ENT ([facility]) Glucose [Mass/volume] in Serum or Plasma 311 mg/dL 74-106 [facility] ([facility]) Creatinine 1.2 mg/dL 0.5-1.1 [facility] Glomerular filtration rate/1.73 sq M.pre dicted [Volume Rate/Area] in Serum or Plasma 60 [facility]) Alanine aminotransferase [Enzymatic acti vity/volume] in Serum or Plasma by With P-5'-P 58 U/L 10-49 [facility] ([facility] [place]note 2[place] Aspartate aminotransferase [Enzymatic ac tivity/volume] in Serum or Plasma by With P-5'-P 54 U/L 0-33 [facility] ([facility]) Alkaline phosphatase [Enzymatic activity/volume] in Serum or Plasma 87 U/L 45-129 [facility] Calcium [Mass/volume] in Serum or Plasma 9.7 mg/dL 8.5-10.1 [facility] ([facility]) Bilirubin.total [Mass/volume] in Serum or Plasma 0.3 mg/dL 0.3-1.2 [facility] Albumin [Mass/volume] in Serum or Plasma by Bromocresol purple (BCP) dye binding method 3.2 g/dL 3.2-4.8 [facility] ([facility] [place][note 2]) Protein [Mass/volume] in Serum or Plasma 8.7 g/dL 5.7-8.2 [facility] ID Date Data Source [id number] 09/10/2020 07:50:00 PM EDT [facility] Name Value Range Interpretation Code Description Data Natalie rce(s) Supporting Document(s) Lactate [Mass/volume] in Serum or Plasma 1.9 mmol/L 0.5-2.2 [facility] Special Instructions: Lab may order repe at test if initial test elevated Physician If elevated, reflex second test in 4-6 hrs ID Date Data Source [id number] 09/10/2020 07:50:00 PM EDT [facility] Name Value Range Interpretation Code Description Data Natalie rce(s) Supporting Document(s) Leukocytes [#/volume] in Blood by Automated count 11.3 10*3/uL 4.45-1 0.71 [facility] Erythrocytes [#/volume] in Blood by Automated count 4.51 10*6/uL 4.3- 6.1 [facility] Hemoglobin [Moles/volume] in Blood 13.5 g/dL 13-18 [facility] ([facility]) Hematocrit [Volume Fraction] of Blood by Automated count 40.4 % 4 2-52 [facility] ([facility]) Erythrocyte mean corpuscular volume [Ent itic volume] in Cord blood by Automated count 89.6 fL 80-96 [facility] Erythrocyte mean corpuscular hemoglobin [Entitic mass] by Automated count 29.9 pg 27-31 [facility] ([facility] ) Erythrocyte mean corpuscular hemoglobin concentration [Mass/volume] in Cord blood 33.4 g/dL 33-37 [facility] Erythrocyte distribution width [Entitic volume] by Automated count 13 % 11-15 [facility] ([facility]) Platelets [#/volume] in Blood by Automated count 225 10*3/uL 130-472 [facility] ([facility]) Platelet mean volume [Entitic volume] in Blood 9.5 fL 9.1-13.1 [facility] ([facility]) Neutrophils/100 leukocytes in Blood by Automated count 78.2 % 41- 77 [facility] ([facility]) Neutrophils [#/volume] in Blood by Automated count 8.8 U 1.7-7.6 [facility] ([facility]) Lymphocytes/100 leukocytes in Blood by Automated count 14.6 % 14- 46 [facility] ([facility]) Lymphocytes [#/volume] in Blood by Automated count 1.7 U 0.6-4.6 [facility] ([facility]) Monocytes/100 leukocytes in Blood by Automated count 4.6 % 4-12 [facility] ([facility]) Monocytes [#/volume] in Blood by Automated count 0.5 U 0.2-1.2 [facility] ([facility]) Eosinophils/100 leukocytes in Blood by Automated count 1.8 % 0-7 [facility] ([facility]) Eosinophils [#/volume] in Blood by Automated count 0.2 U 0.0-0.5 [facility] ([facility]) Basophils/100 leukocytes in Blood by Automated count 0.4 % 0.4-1 .3 [facility] ([facility]) Basophils [#/volume] in Blood by Automated count 0.1 U 0.0-0.2 [facility] ([facility]) Nucleated Red Blood Cell 0 % [facility] T ([facility]) Immature granulocytes [Presence] in Blood by Automated count 0.4 0-2 [facility] ([facility]) Laboratory test finding (navigational concept) 0 U [facility] Immature granulocytes [#/volume] in Blood by Automated count 0.0 U 0-0.1 [facility] ([facility]) Manual Differential panel - Blood Laboratory test result [facility] Manual Diff Added Procedure Social History Code Duration Value Status Description Data Source(s ) Smoking 06/11/2021 12:00:00 AM EDT Patient is a former smoker completed Patient is a former smoker [facility] ([facility]) 04/22/2021 12:40:21 PM EDT Former smoker completed [facility] Smoking 04/22/2021 12:40:00 PM EDT Former smoker completed Former smoker [facility] Smoking 03/01/2021 12:00:00 AM EDT Patient is a former smoker completed Patient is a former smoker [facility] ([facility], ) Smoking 03/01/2021 12:00:00 AM EDT Patient has never smoked co mpleted Patient has never smoked [facility] ([facility], ) 09/22/2020 07:58:44 PM EST Former smoker completed Former smoker [facility] Smoking 09/22/2020 07:58:00 PM EST Former smoker completed Former smoker [facility] 09/10/2020 10:01:54 PM EDT Former smoker completed Former smoker [facility] Smoking 09/10/2020 10:01:00 PM EDT Former smoker completed Former smoker [facility] Vital Signs ID Date Data Source UNK Name Value Range Interpretation Code Description Data Source(s) Heart rate 85 /min 85 /min [facility] Oxygen saturation in Arterial blood by Pulse oximetry 95 % 95 % [facility] Body height 71.5 [in_i] 71.5 [in_i] [facility] ([facility], ) 5'11.50" Body weight 289.00 [lb_av] 289.00 [lb_av] [facility] T ([facility]) Body mass index (BMI) [Ratio] 39.7 kg/m2 39.7 k g/m2 [facility] ([facility]) [place] body weight 172 [lb_av] 172 [lb_av] [facility] Systolic blood pressure 118 mm[Hg] 118 mm[Hg] M EDENT ([facility]) Diastolic blood pressure 78 mm[Hg] 78 mm[Hg] [facility] ([facility]) Body weight 131.090 kg 131.090 kg [facility] ([facility]) Body surface area Derived from formula 2.48 m2 2.48 m2 [facility] ([facility]) Body mass index (BMI) [Ratio] 39.7 kg/m2 39.7 k g/m2 [facility] ([facility]) Body height 71 [in_i] 71 [in_i] [facility] 5'11" Heart rate 55 /min 55 /min [facility] Systolic blood pressure--sitting 124 mm[Hg] 124 mm[Hg] [facility] ([facility]) Ra, large cuff Diastolic blood pressure--sitting 72 mm[Hg] 72 mm[Hg] [facility] ([facility]) Ra, large cuff Body weight 285.00 [lb_av] 285.00 [lb_av] [facility] T ([facility]) Body mass index (BMI) [Ratio] 39.6 kg/m2 39.6 k g/m2 [facility] ([facility]) Body weight 292.00 [lb_av] 292.00 [lb_av] [facility] T ([facility]) Systolic blood pressure 144 mm[Hg] 144 mm[Hg] M EDENT ([facility]) Diastolic blood pressure 82 mm[Hg] 82 mm[Hg] [facility] ([facility]) Heart rate 78 /min 78 /min [facility] ([facility]) Body height 72 [in_i] 72 [in_i] [facility] ([facility]) 6'0" Oxygen saturation in Arterial blood by Pulse oximetry 97 % 97 % [facility] Body surface area Derived from formula 2.48 m2 2.48 m2 [facility] ([facility]) Body weight 131.090 kg 131.090 kg [facility] ([facility]) Body mass index (BMI) [Ratio] 39.7 kg/m2 39.7 k g/m2 [facility] ([facility]) [place] body weight 172 [lb_av] 172 [lb_av] [facility] ([facility]) Oxygen saturation in Arterial blood by Pulse oximetry 97 % 97 % [facility] ([facility]) Body height 71.5 [in_i] 71.5 [in_i] [facility] ([facility]) 5'11.50" Body weight 289.00 [lb_av] 289.00 [lb_av] [facility] T ([facility]) Oxygen saturation in Arterial blood by Pulse oximetry 97 % 97 % [facility] ([facility]) Body height 71.5 [in_i] 71.5 [in_i] [facility] ([facility]) 5'11.50" Body weight 289.00 [lb_av] 289.00 [lb_av] [facility] T ([facility]) Body mass index (BMI) [Ratio] 39.7 kg/m2 39.7 k g/m2 [facility] ([facility]) Systolic blood pressure 140 mm[Hg] 140 mm[Hg] [facility] ([facility]) Diastolic blood pressure 70 mm[Hg] 70 mm[Hg] [facility] ([facility]) Heart rate 62 /min 62 /min [facility] ([facility]) [place] body weight 172 [lb_av] 172 [lb_av] [facility] ([facility]) Body weight 131.090 kg 131.090 kg [facility] ([facility]) Body surface area Derived from formula 2.48 m2 2.48 m2 [facility] ([facility]) Body mass index (BMI) [Ratio] 40.7 kg/m2 40.7 k g/m2 [facility] ([facility]) Diastolic blood pressure 80 mm[Hg] 80 mm[Hg] [facility] ([facility]) Body weight 132.451 kg 132.451 kg [facility] Body temperature 97.0 [degF] 97.0 [degF] [facility] ([facility]) Body height 71 [in_i] 71 [in_i] [facility]) 5'11" Body weight 292.00 [lb_av] 292.00 [lb_av] [facility] T ([facility]) Systolic blood pressure 140 mm[Hg] 140 mm[Hg] [facility] Heart rate 63 /min 63 /min [facility] Body weight 288.00 [lb_av] 288.00 [lb_av] [facility] T ([facility]) Oxygen saturation in Arterial blood by Pulse oximetry 98 % 98 % [facility] Body mass index (BMI) [Ratio] 39.1 kg/m2 39.1 k g/m2 [facility] ([facility]) Heart rate 60 /min 60 /min [facility] ([facility]) Body height 72 [in_i] 72 [in_i] [facility] 6'0" Systolic blood pressure 142 mm[Hg] 142 mm[Hg] M [facility] ([facility]) Diastolic blood pressure 84 mm[Hg] 84 mm[Hg] [facility] ([facility]) Diastolic blood pressure 70 mm[Hg] 70 mm[Hg] [facility] ([facility], ) Heart rate 63 /min 63 /min [facility] ([facility], ) Oxygen saturation in Arterial blood by Pulse oximetry 96 % 96 % [facility] ([facility], ) Systolic blood pressure 110 mm[Hg] 110 mm[Hg] M [facility] ([facility], ) Body height 71.5 [in_i] 71.5 [in_i] [facility] ([facility], ) 5'11.50" Body weight 288.00 [lb_av] 288.00 [lb_av] [facility] T ([facility], ) Body mass index (BMI) [Ratio] 39.6 kg/m2 39.6 k g/m2 [facility] ([facility]) [place] body weight 172 [lb_av] 172 [lb_av] [facility] T ([facility]) Body weight 130.637 kg 130.637 kg [facility] ([facility]) Body surface area Derived from formula 2.47 m2 2.47 m2 [facility] ([facility]) Diastolic blood pressure 76 mm[Hg] 76 mm[Hg] [facility] ([facility]) Heart rate 56 /min 56 /min [facility] ([facility]) Body height 72 [in_i] 72 [in_i] MEDENT ([facility]) 6'0" Body weight 290.00 [lb_av] 290.00 [lb_av] [facility] Body mass index (BMI) [Ratio] 39.3 kg/m2 39.3 k g/m2 [facility] ([facility]) Oxygen saturation in Arterial blood by [facility]ulse oximetry 96 % 96 % [facility] RM Air Systolic blood pressure 126 mm[Hg] 126 mm[Hg] M EDENT ([facility]) Systolic blood pressure 136 mm[Hg] 136 mm[Hg] [facility] Diastolic blood pressure 72 mm[Hg] 72 mm[Hg] [facility] ([facility]) Body height 72 [in_i] 72 [in_i] [facility] ([facility]) 6'0" Body weight 295.12 [lb_av] 295.12 [lb_av] [facility] Body mass index (BMI) [Ratio] 40.0 kg/m2 40.0 k g/m2 [facility] ([facility]) Body weight 134.266 kg 134.266 kg [facility] ([facility]) Body mass index (BMI) [Ratio] 41.3 kg/m2 41.3 k g/m2 [facility] ([facility]) Heart rate 89 /min 89 /min [facility] ([facility]) Body temperature 97.9 [degF] 97.9 [degF] [facility] ([facility]) Body height 71 [in_i] 71 [in_i] [facility] ([facility]) 5'11" Body weight 296.00 [lb_av] 296.00 [lb_av] MEDEN T ([facility]) Systolic blood pressure 131 mm[Hg] 131 mm[Hg] [facility] Diastolic blood pressure 73 mm[Hg] 73 mm[Hg] [facility] ([facility]) Body weight 302.00 [lb_av] 302.00 [lb_av] MEDEN T ([facility]) Body height 71 [in_i] 71 [in_i] [facility] 5'11" Body mass index (BMI) [Ratio] 42.1 kg/m2 42.1 k g/m2 [facility] Heart rate 64 /min 64 /min [facility] Systolic blood pressure--sitting 140 mm[Hg] 140 mm[Hg] [facility] ([facility]) [place], large cuff Diastolic blood pressure--sitting 82 mm[Hg] 82 mm[Hg] [facility] ([facility]) [place], large cuff Systolic blood pressure 138 mm[Hg] 138 mm[Hg] [facility] Diastolic blood pressure 64 mm[Hg] 64 mm[Hg] [facility] Heart rate 68 /min 68 /min [facility] Body height 72 [in_i] 72 [in_i] [facility] 6'0" Body weight 304.00 [lb_av] 304.00 [lb_av] MEDEN T ([facility]) Oxygen saturation in Arterial blood by Pulse oximetry 98 % 98 % [facility] Body mass index (BMI) [Ratio] 41.2 kg/m2 41.2 k g/m2 [facility] Systolic blood pressure 135 mm[Hg] 135 mm[Hg] M EDENT ([facility]) Body height 71 [in_i] 71 [in_i] MED[facility] ([facility]) 5'11" Body weight 298.00 [lb_av] 298.00 [lb_av] MEDEN T ([facility]) Diastolic blood pressure 85 mm[Hg] 85 mm[Hg] [facility] ([facility]) Heart rate 77 /min 77 /min [facility] ([facility]) Body mass index (BMI) [Ratio] 41.6 kg/m2 41.6 k g/m2 [facility] ([facility]) Body weight 135.173 kg 135.173 kg [facility] Body temperature 97.5 [degF] 97.5 [degF] [facility] ([facility]) Systolic blood pressure 124 mm[Hg] 124 mm[Hg] M EDENT ([facility]) Diastolic blood pressure 78 mm[Hg] 78 mm[Hg] [facility] ([facility]) Heart rate 82 /min 82 /min [facility] ([facility]) Body height 72 [in_i] 72 [in_i] [facility] ([facility]) 6'0" Body weight 296.00 [lb_av] 296.00 [lb_av] MEDEN T ([facility]) Body mass index (BMI) [Ratio] 40.1 kg/m2 40.1 k g/m2 [facility] ([facility]) Body height 71 [in_i] 71 [in_i] [facility] Body weight 296.00 [lb_av] 296.00 [lb_av] [...]
== END 2021-09-20 16:19 | disposition left against medical advice (07) ==
LOC: M ED 14:28
DX: Z53.29 Procedure and treatment not carried out because of patient's decision for other reasons (principal)

== ENCOUNTER → 2021-10-06 | Outpatient (REF) | payer MEDICARE, OTHER ==
[2021-10-06 13:30] LABS: FOLATE 9.4 NG/ML
== END ==
LOC: M LAB REF 12:25
PROVIDERS: ATTEND Internal Medicine
DX: R41.3 Other amnesia (principal)

== ENCOUNTER → 2021-10-12 | Outpatient (REF) | payer MEDICARE, OTHER ==
[~2021-10-12] MED LIST changes: -AMLO10CA22 PO; +AMLO10CA30 PO; -CEFD1CAP8 PO; +CEFD300C41 PO; +NIRM1TAB PO; +PROM25TA12 PO
== END ==
LOC: M LAB REF 16:55
PROVIDERS: ATTEND Nurse Practitioner Adult Health
DX: M54.50 Low back pain, unspecified (principal)

== ENCOUNTER 2021-11-10 17:51 | Emergency (ER) | payer MEDICARE, OTHER ==
[~2021-11-10] VITALS: Ht 185.4 cm; Wt 129.6 kg
[~2021-11-10 17:51] MED LIST changes: +AMLO10CA22 PO; -AMLO10CA30 PO; +CEFD1CAP8 PO; -CEFD300C41 PO; -NIRM1TAB PO; -PROM25TA12 PO
[2021-11-10] MEDS ORDERED: ASPIRIN 81 MG CHEW TABLET PO ONE (20:50)
[2021-11-10 21:10] LABS: VENOUS BASE EXCESS 0.7 (-2.0-2.0); VENOUS HCO3 25.9 MEQ/L (23.0-27.0); VENOUS O2 SATURATION 92.3 % (60.0-80.0); VENOUS PARTIAL PRESSURE CO2 43.3 mmHg (38.0-50.0); VENOUS PARTIAL PRESSURE O2 63.7 mmHg (30.0-50.0); VENOUS PH 7.394 UNITS (7.330-7.430); VENOUS TOTAL CO2 27.2 MEQ/L (24.0-28.0)
[2021-11-10 21:18] LABS: BASO # 0.1 10^3/uL (0.0-0.2); BASO % 0.8 % (0.0-1.0); EOS # 0.6 10^3/uL (0.0-0.5); HEMATOCRIT 39.1 % (42.0-52.0); HEMOGLOBIN 13.1 g/dl (13.5-17.5); LYMPH # 2.1 10^3/uL (1.5-5.0); LYMPH % 22.6 % (24.0-44.0); MEAN CORPUSCULAR HGB CONC 33.5 g/dl (32.0-36.5); MEAN CORPUSCULAR VOLUME 89.5 fl (80.0-96.0); MONO # 0.6 10^3/uL (0.0-0.8); MONO % 5.9 % (2.0-8.0); NEUTROPHILS # 6.1 10^3/uL (1.5-8.5); NEUTROPHILS % 64.4 % (36.0-66.0); PLATELET COUNT, AUTOMATED 224 10^3/uL (150-450); RED BLOOD COUNT 4.37 10^6/uL (4.30-6.10); WHITE BLOOD COUNT 9.5 10^3/uL (4.0-10.0)
[2021-11-10 21:29] LABS: INR 1.02; PROTHROMBIN TIME 13.8 SECONDS (12.7-14.5)
[2021-11-10 21:40] LABS: MB/CK RELATIVE INDEX 1.1 (< OR =4)
--- NOTE | 2021-11-10 21:41 | REPVR ---
PROCEDURE INFORMATION: Exam: XR Chest Exam date and time: 11/10/2021 9:12 PM Age: 71 years old Clinical indication: Dyspnea and shortness of breath; Additional info: Dyspnea/cough TECHNIQUE: Imaging protocol: XR of the chest. Views: 1 view. COMPARISON: CR PORTABLE CHEST X-RAY 04/22/2021 3:35 PM FINDINGS: Lungs: Well inflated lungs with flattened diaphragmatic contours consistent with COPD. Foci of apparent platelike atelectasis in the right mid and lower lung zones. Suggestion of increased parenchymal opacity demonstrated along lateral aspect the right mid and lower lung zone left lower lung zone. Findings may be related to technique. Clinical correlation screwed presence of acute pneumonitis suggested. Pleural spaces: Unremarkable. No pleural effusion. No pneumothorax. Heart/Mediastinum: Unremarkable. No cardiomegaly. Bones/joints: Unremarkable. IMPRESSION: 1. COPD. 2. There is a of peripheral infiltrates as described above versus technical artifact. Continued interval follow-up suggested. Electronically signed by: Gaurang Haile On 11/10/2021 21:41:10 PM
[2021-11-10 21:43] LABS: ALBUMIN 3.3 GM/DL (3.2-5.2); BILIRUBIN,DIRECT 0.1 MG/DL (0.0-0.2); BILIRUBIN,TOTAL 0.3 MG/DL (0.2-1.0); CALCIUM LEVEL 9.7 MG/DL (8.8-10.2); CREATININE FOR GFR 1.42 MG/DL (0.70-1.30); GLOMERULAR FILTRATION RATE 52.2 (>42); POTASSIUM SERUM 4.4 MEQ/L (3.5-5.1); TOTAL PROTEIN 7.9 GM/DL (6.4-8.2)
[2021-11-10] MEDS ORDERED: NS 1,000 ML IV ONE (21:45)
[2021-11-10] MEDS ORDERED: ISOVUE-370 76% 100ML VIAL As Ordered ONE (21:51)
[2021-11-10 23:02] LABS: CK-MB VALUE MASS < 1.0 NG/ML (<3.6); CPK CREATINE PHOSPHOKINASE 77 U/L (39-308)
[2021-11-10] MEDS ORDERED: IPRATROPIUM 0.5MG/ALBUTEROL 2.5MG INH SOL UD 3ML (DUONEB) NEB ONE (23:05)
--- NOTE | 2021-11-10 23:19 | REPVR ---
PROCEDURE INFORMATION: Exam: CTA Chest with Contrast Exam date and time: 11/10/21 (10:13pm) Age: 71 years old Clinical indication: SOB and chest pain TECHNIQUE: Imaging protocol: Computed tomographic angiography of the chest with contrast. 3D rendering (Not supervised by radiologist): MIP and/or 3D reconstructed images were created by the technologist. Radiation optimization: All CT scans at this facility use at least one of these dose optimization techniques: automated exposure control; mA and/or kV adjustment per patient size (includes targeted exams where dose is matched to clinical indication); or iterative reconstruction. Contrast material: Isovue 370 Contrast volume: 75 ml Contrast route: IV COMPARISON: CTA CHEST of 05/01/20 FINDINGS: Pulmonary arteries: Normal. No pulmonary emboli. Aorta: Unremarkable. No aortic aneurysm. No aortic dissection. Lungs: Unremarkable. No consolidation. No masses. Pleural spaces: Unremarkable. No pneumothorax. No pleural effusions. Heart: Unremarkable. No cardiomegaly. No pericardial effusion. Lymph nodes: Unremarkable. No enlarged lymph nodes. Bones/joints: Unremarkable. No acute fracture. Soft tissues: Unremarkable. Upper abdomen: Mildly nodular left adrenal gland. Diffusely fatty liver. IMPRESSION: No acute findings. No filling defects suspicious for pulmonary emboli are seen. There is no CT evidence of aortic dissection nor leakage. No aortic aneurysm is appreciated. Electronically signed by: Camila Cantrell On 11/10/2021 23:19:24 PM
[2021-11-10] MEDS ORDERED: methylPREDNISolone 125MG 2ML VIAL IV ONE (23:40)
[2021-11-10] MEDS ORDERED: PRED20TA PO (23:41)
[2021-11-11 00:15] VITALS: BP 156/74
--- NOTE | 2021-11-11 06:38 | ECGEPIP ---
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
--- NOTE | 2021-11-11 07:18 | ED PDOC ---
Post-Departure Follow-Up dr nathalie guerrero faxed formal report of cxr for fu Carlotta Pfeiffer MD Nov 11, 2021 07:18
== END 2021-11-11 00:34 | disposition home or self-care (01) ==
LOC: M ED 17:51
DX: J20.9 Acute bronchitis, unspecified (principal); E11.9 Type 2 diabetes mellitus without complications; I50.9 Heart failure, unspecified; I11.0 Hypertensive heart disease with heart failure; E78.5 Hyperlipidemia, unspecified; E03.9 Hypothyroidism, unspecified; K21.9 Gastro-esophageal reflux disease without esophagitis; Z79.899 Other long term (current) drug therapy; Z79.890 Hormone replacement therapy; Z79.4 Long term (current) use of insulin; Z88.0 Allergy status to penicillin; Z88.1 Allergy status to other antibiotic agents; Z88.2 Allergy status to sulfonamides; Z87.891 Personal history of nicotine dependence
CPT/HCPCS: 71045; 71275; 80048; 80076; 82550; 82553; 82803; 83605; 83880; 84484; 85025; 85610; 87040; 87798; 93005; 93041; 96361; 96374; 99285; J2930; Q9967

== ENCOUNTER 2021-11-29 17:48 | Emergency (ER) | payer MEDICARE, OTHER ==
[~2021-11-29 17:48] MED LIST changes: -AMLO10CA22 PO; +AMLO10CA30 PO; -CEFD1CAP8 PO; +CEFD300C41 PO
== END 2021-11-30 16:02 | disposition left against medical advice (07) ==
LOC: M ED 17:48
DX: Z53.29 Procedure and treatment not carried out because of patient's decision for other reasons (principal)

== ENCOUNTER 2021-11-29 18:32 | Emergency (ER) | payer MEDICARE, OTHER ==
[~2021-11-29] VITALS: Ht 182.9 cm; Wt 129.6 kg
[2021-11-29 18:47] VITALS: BP 147/77
== END 2021-11-30 00:54 | disposition left against medical advice (07) ==
LOC: M ED 18:32
DX: Z53.29 Procedure and treatment not carried out because of patient's decision for other reasons (principal)

== ENCOUNTER 2021-12-02 12:26 | Emergency (ER) | payer MEDICARE, OTHER ==
[~2021-12-02] VITALS: Ht 182.9 cm; Wt 129.6 kg
[2021-12-02] MEDS ORDERED: ONDANSETRON 4MG/2ML VIAL IV ONE (13:05)
[2021-12-02] MEDS ORDERED: NS 1,000 ML IV ONE (13:05)
[2021-12-02 13:29] LABS: BASO % 0.5 % (0.0-1.0); EOS % 0.5 % (0.0-3.0); HEMATOCRIT 39.4 % (42.0-52.0); HEMOGLOBIN 13.5 g/dl (13.5-17.5); LYMPH % 21.8 % (24.0-44.0); MEAN CORPUSCULAR HEMOGLOBIN 30.3 pg (27.0-33.0); MEAN CORPUSCULAR HGB CONC 34.3 g/dl (32.0-36.5); MEAN CORPUSCULAR VOLUME 88.3 fl (80.0-96.0); MONO # 0.4 10^3/uL (0.0-0.8); MONO % 8.4 % (2.0-8.0); NEUTROPHILS % 68.6 % (36.0-66.0); PLATELET COUNT, AUTOMATED 166 10^3/uL (150-450); RED BLOOD COUNT 4.46 10^6/uL (4.30-6.10); WHITE BLOOD COUNT 4.4 10^3/uL (4.0-10.0)
[2021-12-02 13:38] LABS: ALT/SGPT 83 U/L (12-78); BILIRUBIN,DIRECT < 0.1 MG/DL (0.0-0.2); BILIRUBIN,TOTAL 0.5 MG/DL (0.2-1.0); BLOOD UREA NITROGEN 18 MG/DL (7-18); CALCIUM LEVEL 9.3 MG/DL (8.8-10.2); CARBON DIOXIDE LEVEL 27 MEQ/L (21-32); CHLORIDE LEVEL 102 MEQ/L (98-107); CREATININE FOR GFR 1.29 MG/DL (0.70-1.30); GLOMERULAR FILTRATION RATE 58.3 (>42); GLUCOSE, FASTING 317 MG/DL (70-100); LIPASE 52 U/L (73-393); POTASSIUM SERUM 5.9 MEQ/L (3.5-5.1); SODIUM LEVEL 134 MEQ/L (136-145); TOTAL PROTEIN 7.4 GM/DL (6.4-8.2)
[2021-12-02] MEDS ORDERED: PROMETHAZINE INJ 25 MG/ML VIAL (J2550) IV ONE (14:10)
[2021-12-02] MEDS ORDERED: ISOVUE-370 76% 100ML VIAL As Ordered ONE (14:15)
[2021-12-02] MEDS ORDERED: PROM25TA12 PO (19:04)
[2021-12-02] MEDS ORDERED: PROMETHAZINE 25 MG TAB PO ONE ×2 (19:05→21:10)
[2021-12-02 19:57] VITALS: BP 181/86
[2021-12-02] MEDS ORDERED: IRBESARTAN 150MG TAB PO STA (20:17)
[2021-12-02] MEDS ORDERED: NIRM1TAB PO (21:18)
== END 2021-12-02 21:18 | disposition home or self-care (01) ==
LOC: M ED 12:26
DX: R53.1 Weakness (principal); R11.2 Nausea with vomiting, unspecified; U07.1 COVID-19; E11.9 Type 2 diabetes mellitus without complications; I50.9 Heart failure, unspecified; I11.0 Hypertensive heart disease with heart failure; E78.5 Hyperlipidemia, unspecified; E03.9 Hypothyroidism, unspecified; F33.9 Major depressive disorder, recurrent, unspecified; K21.9 Gastro-esophageal reflux disease without esophagitis; N40.0 Benign prostatic hyperplasia without lower urinary tract symptoms; Z87.19 Personal history of other diseases of the digestive system; Z79.899 Other long term (current) drug therapy; Z79.890 Hormone replacement therapy; Z79.4 Long term (current) use of insulin; Z88.0 Allergy status to penicillin; Z88.1 Allergy status to other antibiotic agents; Z88.2 Allergy status to sulfonamides
CPT/HCPCS: 71260; 74177; 80048; 80076; 83605; 83690; 85025; 87798; 93005; 93041; 96361; 96374; 96375; 99285; J2405; Q9967

== ENCOUNTER 2021-12-04 17:16 | Inpatient (IN) | payer MEDICARE, OTHER ==
[~2021-12-04] VITALS: Ht 188 cm; Wt 132.5 kg
[~2021-12-04 17:16] MED LIST changes: +NIRM1TAB PO; +PROM25TA12 PO
[2021-12-04] MEDS ORDERED: ONDANSETRON 4MG/2ML VIAL IV ONE (17:25)
[2021-12-04] MEDS ORDERED: NS 1,000 ML IV ONE (17:45)
[2021-12-04] MEDS ORDERED: NS 1,000 ML IV SCH (17:45)
[2021-12-04] MEDS ORDERED: PROMETHAZINE INJ 25 MG/ML VIAL (J2550) IV ONE (18:20)
[2021-12-04 18:23] LABS: BASO % 0.2 % (0.0-1.0); EOS % 0.4 % (0.0-3.0); HEMATOCRIT 38.2 % (42.0-52.0); HEMOGLOBIN 13.2 g/dl (13.5-17.5); LYMPH # 0.8 10^3/uL (1.5-5.0); LYMPH % 16.7 % (24.0-44.0); MEAN CORPUSCULAR HEMOGLOBIN 30.3 pg (27.0-33.0); MEAN CORPUSCULAR HGB CONC 34.6 g/dl (32.0-36.5); MEAN CORPUSCULAR VOLUME 87.8 fl (80.0-96.0); MONO # 0.3 10^3/uL (0.0-0.8); MONO % 6.8 % (2.0-8.0); NEUTROPHILS # 3.8 10^3/uL (1.5-8.5); NEUTROPHILS % 75.5 % (36.0-66.0); PLATELET COUNT, AUTOMATED 148 10^3/uL (150-450); RED BLOOD COUNT 4.35 10^6/uL (4.30-6.10)
[2021-12-04 18:43] LABS: ALBUMIN 3.1 GM/DL (3.2-5.2); BILIRUBIN,DIRECT 0.2 MG/DL (0.0-0.2); BILIRUBIN,TOTAL 0.5 MG/DL (0.2-1.0); TOTAL PROTEIN 7.3 GM/DL (6.4-8.2)
[2021-12-04 18:50] LABS: ALBUMIN 3.1 GM/DL (3.2-5.2); ALT/SGPT 61 U/L (12-78); BILIRUBIN,TOTAL 0.5 MG/DL (0.2-1.0); BLOOD UREA NITROGEN 12 MG/DL (7-18); CALCIUM LEVEL 8.7 MG/DL (8.8-10.2); CARBON DIOXIDE LEVEL 24 MEQ/L (21-32); CHLORIDE LEVEL 104 MEQ/L (98-107); CREATININE FOR GFR 1.11 MG/DL (0.70-1.30); GLOMERULAR FILTRATION RATE > 60.0 (>42); GLUCOSE, FASTING 288 MG/DL (70-100); POTASSIUM SERUM 3.9 MEQ/L (3.5-5.1); SODIUM LEVEL 137 MEQ/L (136-145); TOTAL PROTEIN 7.1 GM/DL (6.4-8.2)
[2021-12-04] MEDS ORDERED: zolPIDEM TARTRATE 5 MG TAB PO PRN (19:00)
[2021-12-04] MEDS ORDERED: DEXTROSE 50% 50 ML SYRINGE IV PRN (19:20)
[2021-12-04] MEDS ORDERED: GLUCOSE 4GM CHEW TABLET PO PRN (19:20)
[2021-12-04] MEDS ORDERED: GLUCAGON INJ 1MG VIAL SC PRN (19:20)
[2021-12-04] MEDS ORDERED: MOM 30ML SUSPENSION UDC PO PRN (19:20)
[2021-12-04] MEDS ORDERED: HOME MED LIST COMPLETE! XX SCH (19:35)
[2021-12-04 20:14] LABS: VENOUS BASE EXCESS -2.9 (-2.0-2.0); VENOUS HCO3 20.9 MEQ/L (23.0-27.0); VENOUS O2 SATURATION 98.7 % (60.0-80.0); VENOUS PARTIAL PRESSURE CO2 33.5 mmHg (38.0-50.0); VENOUS PARTIAL PRESSURE O2 133.9 mmHg (30.0-50.0); VENOUS PH 7.412 UNITS (7.330-7.430); VENOUS STANDARD HCO3 22.1 MEQ/L; VENOUS TOTAL CO2 21.9 MEQ/L (24.0-28.0)
[2021-12-04 20:31] LABS: INR 1.03; PROTHROMBIN TIME 13.9 SECONDS (12.7-14.5)
[2021-12-04 20:32] LABS: PARTIAL THROMBOPLASTIN TIME 33.7 SECONDS (25.9-37.0)
[2021-12-04 20:54] LABS: ACETONE/KETONE 16.93 MG/DL (<2.81)
[2021-12-04] MEDS ORDERED: IRBESARTAN 150MG TAB PO SCH (21:00)
[2021-12-04] MEDS: GABAPENTIN 300 MG CAP PO SCH (21:00)
[2021-12-04] MEDS: SUCRALFATE 1 GM TAB PO SCH (21:00)
[2021-12-04] MEDS: DOCUSATE SODIUM 100MG CAPSULE PO SCH (21:00)
[2021-12-04] MEDS: HumaLOG INSULIN (NovoLOG) PER UNIT SC SCH (21:00)
[2021-12-04] MEDS: LR 1,000 ML IV SCH (21:42)
[2021-12-04] MEDS: METOCLOPRAMIDE INJ 10MG/2ML VIAL (J2765 PER 1) IV SCH (21:42)
[2021-12-04] MEDS: LEVEMIR (INSULIN DETEMIR) 1 UNITS/0.01ML SC SCH (21:46)
[2021-12-04] MEDS: ONDANSETRON 4MG/2ML VIAL IV PRN (21:58)
[2021-12-04 22:00] VITALS: BP 211/89
[2021-12-04 22:05] VITALS: BP 190/100
[2021-12-04] MEDS ORDERED: hydrALAZINE 20MG/ML 1ML VIAL (J0360 PER 20MG) IV ONE (22:30)
[2021-12-04] MEDS: PANTOPRAZOLE 40MG VIAL (C9113 PER 1) IV SCH (22:41)
[2021-12-04 22:45] VITALS: BP 166/78
[2021-12-05] VITALS (13 sets, daily range): BP systolic 107–183; BP diastolic 52–80
[2021-12-05 01:10] LABS: APPEARANCE, URINE CLEAR (CLEAR); BACTERIA, URINE AUTO NEGATIVE (NEGATIVE); BILIRUBIN, URINE AUTO NEGATIVE (NEGATIVE); BLOOD, URINE BLOOD NEGATIVE (NEGATIVE); COLOR, URINE YELLOW (YELLOW); GLUCOSE, URINE (UA) AUTO 3+ mg/dL (NEGATIVE); KETONE, URINE AUTO 1+ mg/dL (NEGATIVE); LEUKOCYTE ESTERASE, URINE AUTO NEGATIVE (NEGATIVE); NITRITE, URINE AUTO NEGATIVE (NEGATIVE); PROTEIN, URINE AUTO 3+ mg/dL (NEGATIVE); RBC, URINE AUTO 1 /HPF (0-3); SPECIFIC GRAVITY URINE AUTO 1.015 (1.002-1.035); SQUAMOUS EPITHELIAL CELL UR AU 0 /HPF (0-6); UROBILINOGEN, URINE AUTO 0.2 mg/dL (0.0-2.0); WBC, URINE AUTO 0 /HPF (0-3)
[2021-12-05] MEDS ORDERED: LABETALOL 100MG/20ML VIAL IV STA (01:54)
[2021-12-05 01:56] LABS: MAGNESIUM LEVEL 1.8 MG/DL (1.8-2.4)
[2021-12-05] MEDS: LR 1,000 ML IV SCH ×2 (02:04→08:37)
[2021-12-05] MEDS: LEVOTHYROXINE 125MCG TABLET (0.125MG) PO SCH (05:46)
[2021-12-05] MEDS ORDERED: PILL CUTTER 1 EACH XX PRN (08:20)
[2021-12-05] MEDS: TAMSULOSIN 0.4 MG CAP PO SCH (08:35)
[2021-12-05] MEDS: FINASTERIDE 5 MG TAB PO SCH (08:35)
[2021-12-05] MEDS: GABAPENTIN 300 MG CAP PO SCH ×3 (08:35→20:31)
[2021-12-05] MEDS: HumaLOG INSULIN (NovoLOG) PER UNIT SC SCH ×4 (08:36→20:32)
[2021-12-05] MEDS: SUCRALFATE 1 GM TAB PO SCH ×4 (08:36→20:31)
[2021-12-05] MEDS: ENOXAPARIN 40MG/0.4ML SYRINGE (J1650 PER 10MG) SC SCH (08:36)
[2021-12-05] MEDS: PANTOPRAZOLE 40MG VIAL (C9113 PER 1) IV SCH ×2 (08:37→20:31)
[2021-12-05] MEDS: DOCUSATE SODIUM 100MG CAPSULE PO SCH ×2 (08:37→20:31)
[2021-12-05] MEDS: METOCLOPRAMIDE INJ 10MG/2ML VIAL (J2765 PER 1) IV SCH (08:37)
[2021-12-05] MEDS ORDERED: PANTOPRAZOLE 40MG TAB (PROTONIX) PO SCH (09:00)
[2021-12-05] MEDS ORDERED: TORSEMIDE 20 MG TAB PO SCH (09:00)
[2021-12-05] MEDS: NEBIVOLOL 5 MG TAB (BYSTOLIC) PO SCH (09:33)
[2021-12-05 09:56] LABS: HEMATOCRIT 36.9 % (42.0-52.0); HEMOGLOBIN 12.7 g/dl (13.5-17.5); MEAN CORPUSCULAR HGB CONC 34.4 g/dl (32.0-36.5); PLATELET COUNT, AUTOMATED 180 10^3/uL (150-450); RED BLOOD COUNT 4.24 10^6/uL (4.30-6.10); WHITE BLOOD COUNT 6.8 10^3/uL (4.0-10.0)
[2021-12-05 10:32] LABS: CALCIUM LEVEL 9.2 MG/DL (8.8-10.2); CREATININE FOR GFR 1.41 MG/DL (0.70-1.30); GLOMERULAR FILTRATION RATE 52.6 (>42); MAGNESIUM LEVEL 1.9 MG/DL (1.8-2.4); POTASSIUM SERUM 3.1 MEQ/L (3.5-5.1)
[2021-12-05] MEDS: ONDANSETRON 4MG/2ML VIAL IV PRN (12:03)
[2021-12-05] MEDS ORDERED: **hydrALAZINE HCL** 25 MG TAB PO PRN (12:20)
[2021-12-05] MEDS: NS 0.45% 1,000 ML IV SCH (12:50)
[2021-12-05] MEDS ORDERED: POTASSIUM CHLORIDE 10MEQ SR TABLET PO ONE (13:00)
[2021-12-05] MEDS: LEVEMIR (INSULIN DETEMIR) 1 UNITS/0.01ML SC SCH (20:34)
[2021-12-05] MEDS: ACETAMINOPHEN TAB 650MG DOSE (2X325MG) PO PRN (23:43)
[2021-12-06 04:00] VITALS: BP 134/63
[2021-12-06] MEDS: LEVOTHYROXINE 125MCG TABLET (0.125MG) PO SCH (04:57)
[2021-12-06] MEDS: NS 0.45% 1,000 ML IV SCH (04:57)
[2021-12-06 06:14] LABS: HEMATOCRIT 36.4 % (42.0-52.0); HEMOGLOBIN 12.3 g/dl (13.5-17.5); MEAN CORPUSCULAR HGB CONC 33.8 g/dl (32.0-36.5); MEAN CORPUSCULAR VOLUME 88.8 fl (80.0-96.0); PLATELET COUNT, AUTOMATED 169 10^3/uL (150-450); WHITE BLOOD COUNT 7.4 10^3/uL (4.0-10.0)
[2021-12-06 06:38] LABS: CALCIUM LEVEL 8.8 MG/DL (8.8-10.2); CREATININE FOR GFR 1.34 MG/DL (0.70-1.30); GLOMERULAR FILTRATION RATE 55.8 (>42); PHOSPHORUS LEVEL 2.9 MG/DL (2.5-4.9); POTASSIUM SERUM 3.2 MEQ/L (3.5-5.1)
[2021-12-06] MEDS: HumaLOG INSULIN (NovoLOG) PER UNIT SC SCH ×4 (07:12→21:00)
[2021-12-06] MEDS ORDERED: POTASSIUM CHLORIDE 10MEQ SR TABLET PO ONE (07:15)
[2021-12-06 08:10] VITALS: BP 134/60
[2021-12-06] MEDS: PANTOPRAZOLE 40MG VIAL (C9113 PER 1) IV SCH (08:12)
[2021-12-06] MEDS: FINASTERIDE 5 MG TAB PO SCH (08:12)
[2021-12-06] MEDS: TAMSULOSIN 0.4 MG CAP PO SCH (08:13)
[2021-12-06] MEDS: NEBIVOLOL 5 MG TAB (BYSTOLIC) PO SCH (08:13)
[2021-12-06] MEDS: DOCUSATE SODIUM 100MG CAPSULE PO SCH ×2 (08:13→21:00)
[2021-12-06] MEDS: SUCRALFATE 1 GM TAB PO SCH ×4 (08:13→21:02)
[2021-12-06] MEDS: GABAPENTIN 300 MG CAP PO SCH ×2 (08:14→21:03)
[2021-12-06] MEDS: ENOXAPARIN 40MG/0.4ML SYRINGE (J1650 PER 10MG) SC SCH (08:14)
[2021-12-06 12:00] VITALS: BP 145/67
[2021-12-06 14:00] VITALS: BP 148/65
[2021-12-06] MEDS: ONDANSETRON 4MG/2ML VIAL IV PRN (15:44)
[2021-12-06] MEDS: ACETAMINOPHEN TAB 650MG DOSE (2X325MG) PO PRN (15:44)
[2021-12-06 20:23] VITALS: BP 142/68
[2021-12-06] MEDS: LEVEMIR (INSULIN DETEMIR) 1 UNITS/0.01ML SC SCH (21:06)
[2021-12-07] MEDS: ACETAMINOPHEN TAB 650MG DOSE (2X325MG) PO PRN (01:15)
[2021-12-07 04:00] VITALS: BP 158/71
[2021-12-07] MEDS: LEVOTHYROXINE 125MCG TABLET (0.125MG) PO SCH (06:18)
[2021-12-07 07:14] LABS: HEMATOCRIT 35.3 % (42.0-52.0); HEMOGLOBIN 12.1 g/dl (13.5-17.5); MEAN CORPUSCULAR HEMOGLOBIN 30.3 pg (27.0-33.0); MEAN CORPUSCULAR HGB CONC 34.3 g/dl (32.0-36.5); MEAN CORPUSCULAR VOLUME 88.3 fl (80.0-96.0); PLATELET COUNT, AUTOMATED 147 10^3/uL (150-450); WHITE BLOOD COUNT 5.2 10^3/uL (4.0-10.0)
[2021-12-07 07:33] LABS: BLOOD UREA NITROGEN 11 MG/DL (7-18); CALCIUM LEVEL 9.4 MG/DL (8.8-10.2); CARBON DIOXIDE LEVEL 26 MEQ/L (21-32); CHLORIDE LEVEL 107 MEQ/L (98-107); CREATININE FOR GFR 1.17 MG/DL (0.70-1.30); GLOMERULAR FILTRATION RATE > 60.0 (>42); GLUCOSE, FASTING 125 MG/DL (70-100); MAGNESIUM LEVEL 2.1 MG/DL (1.8-2.4); POTASSIUM SERUM 3.5 MEQ/L (3.5-5.1); SODIUM LEVEL 137 MEQ/L (136-145)
[2021-12-07 08:00] VITALS: BP 132/87
[2021-12-07] MEDS: HumaLOG INSULIN (NovoLOG) PER UNIT SC SCH (08:44)
[2021-12-07] MEDS: ENOXAPARIN 40MG/0.4ML SYRINGE (J1650 PER 10MG) SC SCH (08:44)
[2021-12-07 08:45] VITALS: BP 132/73
[2021-12-07] MEDS: GABAPENTIN 300 MG CAP PO SCH (08:45)
[2021-12-07] MEDS: SUCRALFATE 1 GM TAB PO SCH (08:45)
[2021-12-07] MEDS: NEBIVOLOL 5 MG TAB (BYSTOLIC) PO SCH (08:45)
[2021-12-07] MEDS: TAMSULOSIN 0.4 MG CAP PO SCH (08:45)
[2021-12-07] MEDS: FINASTERIDE 5 MG TAB PO SCH (08:45)
[2021-12-07] MEDS: DOCUSATE SODIUM 100MG CAPSULE PO SCH (08:46)
[2021-12-07] MEDS ORDERED: PANTOPRAZOLE 40MG TAB (PROTONIX) PO SCH (09:00)
== END 2021-12-07 11:25 | disposition home or self-care (01) | DRG 178 ==
LOC: EDBD 17:16 → M ED 17:16 → M ED INP 19:20 → M 4MAIN 22:10 → OBSVTOIN 12-06 12:17
PROVIDERS: ADMIT Internal Medicine; ATTEND Internal Medicine Nephrology
DX: U07.1 COVID-19 (principal); N17.9 Acute kidney failure, unspecified; I11.0 Hypertensive heart disease with heart failure; I50.9 Heart failure, unspecified; E78.5 Hyperlipidemia, unspecified; G47.33 Obstructive sleep apnea (adult) (pediatric); N40.0 Benign prostatic hyperplasia without lower urinary tract symptoms; M10.9 Gout, unspecified; R11.2 Nausea with vomiting, unspecified; I16.0 Hypertensive urgency; K29.00 Acute gastritis without bleeding; E89.0 Postprocedural hypothyroidism; Z79.4 Long term (current) use of insulin; Z79.899 Other long term (current) drug therapy; Z88.0 Allergy status to penicillin; Z88.1 Allergy status to other antibiotic agents; Z88.2 Allergy status to sulfonamides; R53.1 Weakness; E11.43 Type 2 diabetes mellitus with diabetic autonomic (poly)neuropathy; K31.84 Gastroparesis; E66.9 Obesity, unspecified; Z68.37 Body mass index [BMI] 37.0-37.9, adult

== ENCOUNTER → 2022-01-17 | Outpatient (REF) | payer MEDICARE, OTHER ==
[2022-01-17 17:43] LABS: C REACTIVE PROTEIN QUANTITATIV 0.93 MG/DL (0.00-0.30); RHEUMATOID FACTOR QUANT < 10.0 IU/ML (<15.0)
== END ==
LOC: M LAB REF 16:33
PROVIDERS: ATTEND Physician Assistant Medical
DX: R21 Rash and other nonspecific skin eruption (principal); D48.5 Neoplasm of uncertain behavior of skin; E11.43 Type 2 diabetes mellitus with diabetic autonomic (poly)neuropathy

== ENCOUNTER 2022-01-25 14:19 | Observation (INO) | payer MEDICARE, OTHER ==
[~2022-01-25] VITALS: Ht 180.3 cm; Wt 124.3 kg
[2022-01-25] MEDS ORDERED: NS 1,000 ML IV ONE (14:40)
[2022-01-25 15:07] LABS: VENOUS BASE EXCESS 3.1 (-2.0-2.0); VENOUS HCO3 29.5 MEQ/L (23.0-27.0); VENOUS O2 SATURATION 58.5 % (60.0-80.0); VENOUS PARTIAL PRESSURE CO2 51.8 mmHg (38.0-50.0); VENOUS PARTIAL PRESSURE O2 30.3 mmHg (30.0-50.0); VENOUS PH 7.373 UNITS (7.330-7.430); VENOUS STANDARD HCO3 26.3 MEQ/L; VENOUS TOTAL CO2 31.1 MEQ/L (24.0-28.0)
[2022-01-25 15:14] LABS: BASO % 0.2 % (0.0-1.0); EOS # 0.1 10^3/uL (0.0-0.5); EOS % 1.1 % (0.0-3.0); HEMATOCRIT 39.8 % (42.0-52.0); HEMOGLOBIN 13.3 g/dl (13.5-17.5); LYMPH # 1.6 10^3/uL (1.5-5.0); LYMPH % 13.3 % (24.0-44.0); MEAN CORPUSCULAR HEMOGLOBIN 29.8 pg (27.0-33.0); MEAN CORPUSCULAR HGB CONC 33.4 g/dl (32.0-36.5); MONO # 0.7 10^3/uL (0.0-0.8); MONO % 5.4 % (2.0-8.0); NEUTROPHILS # 9.8 10^3/uL (1.5-8.5); NEUTROPHILS % 79.5 % (36.0-66.0); PLATELET COUNT, AUTOMATED 239 10^3/uL (150-450); RED BLOOD COUNT 4.47 10^6/uL (4.30-6.10); WHITE BLOOD COUNT 12.3 10^3/uL (4.0-10.0)
[2022-01-25 15:37] LABS: HEMOGLOBIN A1c 10.3 %
[2022-01-25 15:44] LABS: ACETONE/KETONE 1.22 MG/DL (<2.81); ALBUMIN 3.2 GM/DL (3.2-5.2); BILIRUBIN,DIRECT 0.1 MG/DL (0.0-0.2); BILIRUBIN,TOTAL 0.3 MG/DL (0.2-1.0); CALCIUM LEVEL 10.1 MG/DL (8.8-10.2); CREATININE FOR GFR 1.37 MG/DL (0.70-1.30); GLOMERULAR FILTRATION RATE 54.4 (>42); POTASSIUM SERUM 4.6 MEQ/L (3.5-5.1); TOTAL PROTEIN 7.7 GM/DL (6.4-8.2)
[2022-01-25 15:50] LABS: RSV AMPLIFICATION NEGATIVE (NEGATIVE)
[2022-01-25 17:56] LABS: CK-MB VALUE MASS < 1.0 NG/ML (<3.6); CPK CREATINE PHOSPHOKINASE 36 U/L (39-308); MB/CK RELATIVE INDEX 2.78 (< OR =4)
[2022-01-25] MEDS ORDERED: GLUCAGON INJ 1MG VIAL SC PRN (18:55)
[2022-01-25] MEDS ORDERED: METOCLOPRAMIDE INJ 10MG/2ML VIAL (J2765 PER 1) IV PRN (18:55)
[2022-01-25] MEDS ORDERED: DEXTROSE 50% 50 ML SYRINGE IV PRN (18:55)
[2022-01-25] MEDS: NS 1,000 ML IV SCH (18:55)
[2022-01-25] MEDS ORDERED: MOM 30ML SUSPENSION UDC PO PRN (18:55)
[2022-01-25] MEDS ORDERED: MAALOX 30 ML SUSP *UDC PO PRN (18:55)
[2022-01-25] MEDS ORDERED: GLUCOSE 4GM CHEW TABLET PO PRN (18:55)
[2022-01-25] MEDS ORDERED: amLODIPine 5 MG TAB PO ONE (18:55)
[2022-01-25] MEDS ORDERED: CLOB0.0548 TOP (20:15)
[2022-01-25] MEDS ORDERED: PRED20TA PO (20:15)
[2022-01-25] MEDS ORDERED: ALBU8.5H INH (20:15)
[2022-01-25] MEDS ORDERED: HOME MED LIST COMPLETE! XX SCH (20:20)
[2022-01-25] MEDS ORDERED: ALBUTEROL 90 MCG/ACT 8GM HFA INHALER INH PRN (20:25)
[2022-01-25 20:35] LABS: INR 1.01; PROTHROMBIN TIME 13.7 SECONDS (12.7-14.5)
[2022-01-25 20:36] LABS: PARTIAL THROMBOPLASTIN TIME 32.3 SECONDS (25.9-37.0)
[2022-01-25 20:51] LABS: C REACTIVE PROTEIN QUANTITATIV 1.22 MG/DL (0.00-0.30)
[2022-01-25] MEDS: DOCUSATE SODIUM 100MG CAPSULE PO SCH (21:00)
[2022-01-25] MEDS: GABAPENTIN 300 MG CAP PO SCH (21:00)
[2022-01-25] MEDS: HumaLOG INSULIN (NovoLOG) PER UNIT SC SCH (21:00)
[2022-01-25] MEDS ORDERED: LABETALOL 100MG/20ML VIAL IV ONE ×2 (21:55→23:00)
[2022-01-25 21:59] LABS: ERYTHROCYTE SEDIMENTATION RATE 63 mm/hr (0-20)
[2022-01-26 00:05] VITALS: BP 150/88
[2022-01-26] MEDS: ACETAMINOPHEN TAB 650MG DOSE (2X325MG) PO PRN ×2 (00:43→14:17)
[2022-01-26] MEDS: NS 1,000 ML IV SCH (04:39)
[2022-01-26] MEDS: LEVOTHYROXINE 125MCG TABLET (0.125MG) PO SCH (05:49)
[2022-01-26 05:56] VITALS: BP_SYST 113; BP_SYST 128; BP_SYST 132; BP_DIAS 48; BP_DIAS 60; BP_DIAS 68
[2022-01-26 06:00] VITALS: BP 132/65
[2022-01-26 07:39] LABS: HEMATOCRIT 36.1 % (42.0-52.0); HEMOGLOBIN 12.2 g/dl (13.5-17.5); MEAN CORPUSCULAR HEMOGLOBIN 30.3 pg (27.0-33.0); MEAN CORPUSCULAR HGB CONC 33.8 g/dl (32.0-36.5); MEAN CORPUSCULAR VOLUME 89.6 fl (80.0-96.0); PLATELET COUNT, AUTOMATED 210 10^3/uL (150-450); RED BLOOD COUNT 4.03 10^6/uL (4.30-6.10); WHITE BLOOD COUNT 11.5 10^3/uL (4.0-10.0)
[2022-01-26 08:16] LABS: BLOOD UREA NITROGEN 22 MG/DL (7-18); CARBON DIOXIDE LEVEL 23 MEQ/L (21-32); CHLORIDE LEVEL 108 MEQ/L (98-107); CREATININE FOR GFR 1.13 MG/DL (0.70-1.30); GLOMERULAR FILTRATION RATE > 60.0 (>42); GLUCOSE, FASTING 194 MG/DL (70-100); POTASSIUM SERUM 4.3 MEQ/L (3.5-5.1); SODIUM LEVEL 141 MEQ/L (136-145)
[2022-01-26] MEDS ORDERED: TORSEMIDE 20 MG TAB PO SCH (09:00)
[2022-01-26] MEDS ORDERED: LEVEMIR (INSULIN DETEMIR) 1 UNITS/0.01ML SC SCH (09:00)
[2022-01-26] MEDS: HumaLOG INSULIN (NovoLOG) PER UNIT SC SCH ×4 (09:02→20:30)
[2022-01-26] MEDS: FINASTERIDE 5 MG TAB PO SCH (09:03)
[2022-01-26] MEDS: NEBIVOLOL 5 MG TAB (BYSTOLIC) PO SCH (09:03)
[2022-01-26] MEDS: TAMSULOSIN 0.4 MG CAP PO SCH (09:03)
[2022-01-26] MEDS: IRBESARTAN 150MG TAB PO SCH (09:03)
[2022-01-26] MEDS: DOCUSATE SODIUM 100MG CAPSULE PO SCH ×2 (09:04→20:30)
[2022-01-26] MEDS: GABAPENTIN 300 MG CAP PO SCH ×2 (09:04→20:30)
[2022-01-26] MEDS: predniSONE 20 MG TAB PO SCH (09:04)
[2022-01-26] MEDS: ENOXAPARIN 40MG/0.4ML SYRINGE (J1650 PER 10MG) SC SCH (09:05)
[2022-01-26] MEDS ORDERED: ONDANSETRON 4 MG TAB PO ONE (12:20)
[2022-01-26] MEDS ORDERED: ONDANSETRON 4 MG ORAL DISINTEGRATING TAB PO PRN (12:40)
[2022-01-26] MEDS: PANTOPRAZOLE 40MG TAB (PROTONIX) PO SCH (12:42)
[2022-01-26 14:00] VITALS: BP 164/82
[2022-01-26 14:41] VITALS: BP_SYST 135; BP_SYST 145; BP_SYST 156; BP_DIAS 71; BP_DIAS 80; BP_DIAS 87
[2022-01-26] MEDS ORDERED: HumaLOG INSULIN (NovoLOG) PER UNIT SC ONE (17:10)
[2022-01-26 22:00] VITALS: BP 116/58
[2022-01-27] VITALS (7 sets, daily range): BP systolic 119–146; BP diastolic 57–74
[2022-01-27] MEDS: LEVOTHYROXINE 125MCG TABLET (0.125MG) PO SCH (05:37)
[2022-01-27 06:23] LABS: HEMATOCRIT 39.7 % (42.0-52.0); HEMOGLOBIN 13.2 g/dl (13.5-17.5); MEAN CORPUSCULAR HEMOGLOBIN 30.1 pg (27.0-33.0); MEAN CORPUSCULAR HGB CONC 33.2 g/dl (32.0-36.5); MEAN CORPUSCULAR VOLUME 90.4 fl (80.0-96.0); PLATELET COUNT, AUTOMATED 230 10^3/uL (150-450); RED BLOOD COUNT 4.39 10^6/uL (4.30-6.10); WHITE BLOOD COUNT 13.1 10^3/uL (4.0-10.0)
[2022-01-27 06:54] LABS: CALCIUM LEVEL 9.8 MG/DL (8.8-10.2); CREATININE FOR GFR 1.44 MG/DL (0.70-1.30); GLOMERULAR FILTRATION RATE 51.3 (>42); MAGNESIUM LEVEL 2.4 MG/DL (1.8-2.4); PHOSPHORUS LEVEL 3.2 MG/DL (2.5-4.9); POTASSIUM SERUM 4.1 MEQ/L (3.5-5.1)
[2022-01-27] MEDS: HumaLOG INSULIN (NovoLOG) PER UNIT SC SCH ×4 (08:51→20:15)
[2022-01-27] MEDS: FINASTERIDE 5 MG TAB PO SCH (08:52)
[2022-01-27] MEDS: predniSONE 20 MG TAB PO SCH (08:52)
[2022-01-27] MEDS: ENOXAPARIN 40MG/0.4ML SYRINGE (J1650 PER 10MG) SC SCH (08:52)
[2022-01-27] MEDS: TAMSULOSIN 0.4 MG CAP PO SCH (08:52)
[2022-01-27] MEDS: IRBESARTAN 150MG TAB PO SCH (08:52)
[2022-01-27] MEDS: GABAPENTIN 300 MG CAP PO SCH ×2 (08:53→20:14)
[2022-01-27] MEDS: DOCUSATE SODIUM 100MG CAPSULE PO SCH ×2 (08:53→20:14)
[2022-01-27] MEDS: PANTOPRAZOLE 40MG TAB (PROTONIX) PO SCH (08:53)
[2022-01-27] MEDS: NEBIVOLOL 5 MG TAB (BYSTOLIC) PO SCH (08:53)
[2022-01-27] MEDS ORDERED: LEVEMIR (INSULIN DETEMIR) 1 UNITS/0.01ML SC SCH ×3 (09:00→21:00)
[2022-01-27] MEDS ORDERED: HumaLOG INSULIN (NovoLOG) PER UNIT SC ONE ×2 (09:40→10:35)
[2022-01-27] MEDS: FLUTICASONE PROP 0.05% NASAL SPRAY 16 GM (FLONASE) NARES SCH ×2 (10:50→20:15)
[2022-01-27 15:34] LABS: CALCIUM LEVEL 10.4 MG/DL (8.8-10.2); CREATININE FOR GFR 1.49 MG/DL (0.70-1.30); GLOMERULAR FILTRATION RATE 49.4 (>42); POTASSIUM SERUM 4.3 MEQ/L (3.5-5.1)
[2022-01-27] MEDS ORDERED: NS 1,000 ML IV SCH (16:05)
[2022-01-27] MEDS ORDERED: LEVEMIR (INSULIN DETEMIR) 1 UNITS/0.01ML SC ONE (16:25)
[2022-01-27 17:04] LABS: THYROID STIMULATING HORMONE 0.865 uIU/ML (0.358-3.740)
[2022-01-28] MEDS: LEVOTHYROXINE 125MCG TABLET (0.125MG) PO SCH (05:30)
[2022-01-28 05:47] VITALS: BP 146/79
[2022-01-28 06:52] LABS: HEMOGLOBIN 12.3 g/dl (13.5-17.5); MEAN CORPUSCULAR HEMOGLOBIN 30.1 pg (27.0-33.0); MEAN CORPUSCULAR HGB CONC 33.2 g/dl (32.0-36.5); MEAN CORPUSCULAR VOLUME 90.7 fl (80.0-96.0); PLATELET COUNT, AUTOMATED 194 10^3/uL (150-450); RED BLOOD COUNT 4.08 10^6/uL (4.30-6.10); WHITE BLOOD COUNT 11.1 10^3/uL (4.0-10.0)
[2022-01-28 07:18] LABS: BLOOD UREA NITROGEN 27 MG/DL (7-18); CALCIUM LEVEL 9.8 MG/DL (8.8-10.2); CARBON DIOXIDE LEVEL 29 MEQ/L (21-32); CHLORIDE LEVEL 105 MEQ/L (98-107); CREATININE FOR GFR 1.18 MG/DL (0.70-1.30); GLOMERULAR FILTRATION RATE > 60.0 (>42); GLUCOSE, FASTING 163 MG/DL (70-100); MAGNESIUM LEVEL 2.3 MG/DL (1.8-2.4); PHOSPHORUS LEVEL 3.2 MG/DL (2.5-4.9); POTASSIUM SERUM 3.8 MEQ/L (3.5-5.1); SODIUM LEVEL 140 MEQ/L (136-145)
[2022-01-28] MEDS: HumaLOG INSULIN (NovoLOG) PER UNIT SC SCH ×2 (08:28→13:02)
[2022-01-28] MEDS: DOCUSATE SODIUM 100MG CAPSULE PO SCH (08:29)
[2022-01-28] MEDS: FINASTERIDE 5 MG TAB PO SCH (08:29)
[2022-01-28] MEDS: FLUTICASONE PROP 0.05% NASAL SPRAY 16 GM (FLONASE) NARES SCH (08:29)
[2022-01-28] MEDS: ENOXAPARIN 40MG/0.4ML SYRINGE (J1650 PER 10MG) SC SCH (08:29)
[2022-01-28] MEDS: TAMSULOSIN 0.4 MG CAP PO SCH (08:29)
[2022-01-28] MEDS: predniSONE 20 MG TAB PO SCH (08:30)
[2022-01-28] MEDS: PANTOPRAZOLE 40MG TAB (PROTONIX) PO SCH (08:30)
[2022-01-28] MEDS: GABAPENTIN 300 MG CAP PO SCH (08:30)
[2022-01-28] MEDS ORDERED: LEVEMIR (INSULIN DETEMIR) 1 UNITS/0.01ML SC SCH (09:00)
[2022-01-28 10:01] VITALS: BP_SYST 149; BP_SYST 152; BP_SYST 153; BP_DIAS 79; BP_DIAS 82; BP_DIAS 84
[2022-01-28] MEDS ORDERED: FLUTISP NARES (11:39)
[2022-01-28 14:00] VITALS: BP 152/91
== END 2022-01-28 14:42 | disposition home or self-care (01) ==
LOC: EDBD 14:19 → M ED 14:19 → M ED INP 14:20 → M MSPAV 01-26 00:04
PROVIDERS: ADMIT Internal Medicine; ATTEND Internal Medicine
DX: R11.2 Nausea with vomiting, unspecified (principal); R53.1 Weakness; R42 Dizziness and giddiness; R51.9 Headache, unspecified; E11.65 Type 2 diabetes mellitus with hyperglycemia; E11.40 Type 2 diabetes mellitus with diabetic neuropathy, unspecified; M31.0 Hypersensitivity angiitis; R07.9 Chest pain, unspecified; R00.1 Bradycardia, unspecified; T44.7X5A Adverse effect of beta-adrenoreceptor antagonists, initial encounter; I45.10 Unspecified right bundle-branch block; I44.1 Atrioventricular block, second degree; J34.89 Other specified disorders of nose and nasal sinuses; E27.8 Other specified disorders of adrenal gland; I11.0 Hypertensive heart disease with heart failure; I50.9 Heart failure, unspecified; E78.5 Hyperlipidemia, unspecified; G47.33 Obstructive sleep apnea (adult) (pediatric); N40.0 Benign prostatic hyperplasia without lower urinary tract symptoms; M10.9 Gout, unspecified; R79.89 Other specified abnormal findings of blood chemistry; I16.0 Hypertensive urgency; Z79.899 Other long term (current) drug therapy; Z79.4 Long term (current) use of insulin; Z79.52 Long term (current) use of systemic steroids; Z88.0 Allergy status to penicillin; Z88.1 Allergy status to other antibiotic agents; Z88.2 Allergy status to sulfonamides
CPT/HCPCS: 36415; 70450; 70551; 71046; 74176; 80048; 80076; 81001; 82010; 82550; 82553; 82803; 83036; 83690; 83735; 83930; 84100; 84145; 84443; 84484; 85025; 85027; 85610; 85652; 85730; 86140; 87631; 93005; 93041; 93925; 96361; 96372; 96374; 96375; 96376; 97116; 97162; 97165; 97530; 97535; 99285; G0378; J1650; J1815; J2765; J7512

== ENCOUNTER → 2022-02-14 | Outpatient (CLI) | payer MEDICARE, OTHER ==
[~2022-02-14] MED LIST changes: +ALBU8.5H INH; +CLOB0.0548 TOP; +FLUTISP NARES
[2022-02-14 14:35] LABS: HEMOGLOBIN 14.1 g/dl (13.5-17.5); MEAN CORPUSCULAR HGB CONC 33.6 g/dl (32.0-36.5); MEAN CORPUSCULAR VOLUME 89.4 fl (80.0-96.0); PLATELET COUNT, AUTOMATED 215 10^3/uL (150-450); WHITE BLOOD COUNT 13.4 10^3/uL (4.0-10.0)
[2022-02-14 14:55] LABS: ERYTHROCYTE SEDIMENTATION RATE 36 mm/hr (0-20)
[2022-02-14 15:04] LABS: ALBUMIN 3.3 GM/DL (3.2-5.2); ALT/SGPT 51 U/L (12-78); BILIRUBIN,TOTAL 0.3 MG/DL (0.2-1.0); BLOOD UREA NITROGEN 36 MG/DL (7-18); CALCIUM LEVEL 9.9 MG/DL (8.8-10.2); CARBON DIOXIDE LEVEL 28 MEQ/L (21-32); CHLORIDE LEVEL 101 MEQ/L (98-107); COMPLEMENT C4 27 MG/DL (10-40); CREATININE FOR GFR 1.47 MG/DL (0.70-1.30); GLUCOSE, FASTING 346 MG/DL (70-100); POTASSIUM SERUM 4.6 MEQ/L (3.5-5.1); SODIUM LEVEL 136 MEQ/L (136-145); TOTAL PROTEIN 7.6 GM/DL (6.4-8.2)
[2022-02-14 15:24] LABS: HEPATITIS B SURFACE ANTIGEN NEGATIVE (NEGATIVE)
[2022-02-14 15:51] LABS: HEPATITIS C VIRUS ABY INDEX 0.2 INDEX (<0.8)
[2022-02-14 15:52] LABS: HEPATITIS B CORE ANTIBODY IGM NEGATIVE (NEGATIVE)
== END ==
LOC: M LAB 13:53
PROVIDERS: ATTEND Dermatology
DX: I77.6 Arteritis, unspecified (principal)

== ENCOUNTER → 2022-02-23 | Outpatient (REF) | payer MEDICARE, OTHER ==
[2022-02-23 16:40] LABS: BASO % 0.2 % (0.0-1.0); EOS % 0.2 % (0.0-3.0); HEMOGLOBIN 14.5 g/dl (13.5-17.5); LYMPH # 1.1 10^3/uL (1.5-5.0); MEAN CORPUSCULAR HEMOGLOBIN 30.5 pg (27.0-33.0); MEAN CORPUSCULAR HGB CONC 33.7 g/dl (32.0-36.5); MEAN CORPUSCULAR VOLUME 90.3 fl (80.0-96.0); MONO # 0.4 10^3/uL (0.0-0.8); MONO % 2.7 % (2.0-8.0); NEUTROPHILS # 12.3 10^3/uL (1.5-8.5); NEUTROPHILS % 88.4 % (36.0-66.0); PLATELET COUNT, AUTOMATED 214 10^3/uL (150-450); RED BLOOD COUNT 4.76 10^6/uL (4.30-6.10); WHITE BLOOD COUNT 13.9 10^3/uL (4.0-10.0)
[2022-02-23 17:06] LABS: APPEARANCE, URINE TURBID (CLEAR); BACTERIA, URINE AUTO NEGATIVE (NEGATIVE); BILIRUBIN, URINE AUTO NEGATIVE (NEGATIVE); BLOOD, URINE BLOOD 1+ (NEGATIVE); COLOR, URINE AMBER (YELLOW); GLUCOSE, URINE (UA) AUTO NEGATIVE (NEGATIVE); KETONE, URINE AUTO TRACE mg/dL (NEGATIVE); LEUKOCYTE ESTERASE, URINE AUTO NEGATIVE (NEGATIVE); MUCUS, URINE SMALL (NEGATIVE); NITRITE, URINE AUTO NEGATIVE (NEGATIVE); PROTEIN, URINE AUTO 3+ mg/dL (NEGATIVE); RBC, URINE AUTO 6 /HPF (0-3); SQUAMOUS EPITHELIAL CELL UR AU 0 /HPF (0-6); WBC, URINE AUTO 1 /HPF (0-3)
[2022-02-23 17:11] LABS: TOTAL PROTEIN,RANDOM URINE 210.5 MG/DL (0.0-12.0)
[2022-02-23 17:13] LABS: ALBUMIN 3.4 GM/DL (3.2-5.2); BILIRUBIN,TOTAL 0.3 MG/DL (0.2-1.0); C REACTIVE PROTEIN QUANTITATIV 0.46 MG/DL (0.00-0.30); CALCIUM LEVEL 10.4 MG/DL (8.8-10.2); CREATININE FOR GFR 1.79 MG/DL (0.70-1.30); GLOMERULAR FILTRATION RATE 39.8 (>42); IMMUNOGLOBULIN M 72.2 MG/DL (40-230); POTASSIUM SERUM 4.6 MEQ/L (3.5-5.1); TOTAL PROTEIN 7.3 GM/DL (6.4-8.2)
[2022-02-23 17:39] LABS: ERYTHROCYTE SEDIMENTATION RATE 56 mm/hr (0-20)
== END ==
LOC: M SFHCRHEU 13:07
PROVIDERS: ATTEND Internal Medicine Rheumatology
DX: M31.0 Hypersensitivity angiitis (principal)

== ENCOUNTER → 2022-03-03 | Outpatient (REF) | payer MEDICARE, OTHER | LOC: M LAB REF 16:17 | PROVIDERS: ATTEND Internal Medicine | DX: R79.82 Elevated C-reactive protein (CRP) (principal) ==

== ENCOUNTER 2022-03-13 08:36 | Emergency (ER) | payer MEDICARE, OTHER ==
[~2022-03-13] VITALS: Ht 180.3 cm; Wt 91.8 kg
[2022-03-13 08:37] VITALS: BP 173/93
[2022-03-13] MEDS ORDERED: GI COCKTAIL 50ML BTL(HYOSCYAMINE/MAALOX/LIDOCAINE VISCOUS)(1:3:1) PO ONE (09:00)
[2022-03-13 09:56] LABS: BASO % 0.2 % (0.0-1.0); EOS # 0.1 10^3/uL (0.0-0.5); EOS % 0.8 % (0.0-3.0); HEMATOCRIT 39.3 % (42.0-52.0); HEMOGLOBIN 12.9 g/dl (13.5-17.5); LYMPH % 26.8 % (24.0-44.0); MEAN CORPUSCULAR HEMOGLOBIN 30.2 pg (27.0-33.0); MEAN CORPUSCULAR HGB CONC 32.8 g/dl (32.0-36.5); MONO # 0.7 10^3/uL (0.0-0.8); MONO % 6.1 % (2.0-8.0); NEUTROPHILS # 7.3 10^3/uL (1.5-8.5); NEUTROPHILS % 64.9 % (36.0-66.0); PLATELET COUNT, AUTOMATED 186 10^3/uL (150-450); RED BLOOD COUNT 4.27 10^6/uL (4.30-6.10); WHITE BLOOD COUNT 11.3 10^3/uL (4.0-10.0)
[2022-03-13 10:30] LABS: ALBUMIN 3.2 GM/DL (3.2-5.2); BILIRUBIN,DIRECT 0.1 MG/DL (0.0-0.2); BILIRUBIN,TOTAL 0.2 MG/DL (0.2-1.0); CALCIUM LEVEL 9.9 MG/DL (8.8-10.2); CREATININE FOR GFR 1.3 MG/DL (0.70-1.30); GLOMERULAR FILTRATION RATE 57.6 (>42); TOTAL PROTEIN 6.5 GM/DL (6.4-8.2)
[2022-03-13] MEDS ORDERED: NS 1,000 ML IV SCH (10:35)
[2022-03-13] MEDS ORDERED: NS 500 ML IV ONE ×2 (10:35→14:00)
[2022-03-13] MEDS ORDERED: ISOVUE-370 76% 100ML VIAL As Ordered ONE (10:38)
[2022-03-13 13:01] VITALS: O2SAT 96
== END 2022-03-13 15:06 | disposition home or self-care (01) ==
LOC: M ED 08:36
DX: J06.9 Acute upper respiratory infection, unspecified (principal); E86.0 Dehydration; I45.10 Unspecified right bundle-branch block; E11.9 Type 2 diabetes mellitus without complications; I11.0 Hypertensive heart disease with heart failure; I50.9 Heart failure, unspecified; E78.5 Hyperlipidemia, unspecified; G47.30 Sleep apnea, unspecified; K22.70 Barrett's esophagus without dysplasia; Z99.89 Dependence on other enabling machines and devices; Z88.0 Allergy status to penicillin; Z88.1 Allergy status to other antibiotic agents; Z88.2 Allergy status to sulfonamides; Z79.899 Other long term (current) drug therapy; Z79.890 Hormone replacement therapy; Z79.4 Long term (current) use of insulin; Z87.891 Personal history of nicotine dependence
CPT/HCPCS: 70360; 70491; 71045; 71275; 80048; 80076; 83605; 84484; 85025; 87040; 87486; 87581; 87633; 87798; 87880; 93005; 93041; 93970; 94760; 96360; 99284; Q9967

== ENCOUNTER → 2022-03-17 | Outpatient (REF) | payer MEDICARE, OTHER ==
[2022-03-17 13:30] LABS: C REACTIVE PROTEIN QUANTITATIV 0.52 MG/DL (0.00-0.30)
== END ==
LOC: M LAB REF 12:28
PROVIDERS: ATTEND Internal Medicine
DX: R79.82 Elevated C-reactive protein (CRP) (principal); I50.32 Chronic diastolic (congestive) heart failure

== ENCOUNTER → 2022-03-21 | Outpatient (CLI) | payer MEDICARE, OTHER | LOC: M RAD 11:14 | PROVIDERS: ATTEND Internal Medicine | DX: E11.43 Type 2 diabetes mellitus with diabetic autonomic (poly)neuropathy (principal) | CPT/HCPCS: 78264; A9541 ==

== ENCOUNTER → 2022-03-24 | Outpatient (CLI) | payer MEDICARE, OTHER | LOC: M RAD 12:58 | PROVIDERS: ATTEND Otolaryngology | DX: R22.1 Localized swelling, mass and lump, neck (principal) ==

== ENCOUNTER → 2022-04-06 | Outpatient (REF) | payer MEDICARE, OTHER ==
[2022-04-07 12:42] LABS: BACTERIA, URINE AUTO NEGATIVE (NEGATIVE); RBC, URINE AUTO 1 /HPF (0-3); SQUAMOUS EPITHELIAL CELL UR AU 0 /HPF (0-6); WBC, URINE AUTO 1 /HPF (0-3)
== END ==
LOC: M LAB REF 16:06
PROVIDERS: ATTEND Physician Assistant Medical
DX: L95.9 Vasculitis limited to the skin, unspecified (principal); R31.9 Hematuria, unspecified

== ENCOUNTER → 2022-04-08 | Outpatient (CLI) | payer MEDICARE, OTHER | LOC: M WUC 11:04 | PROVIDERS: ATTEND Physician Assistant Medical | DX: M51.34 Other intervertebral disc degeneration, thoracic region (principal); R10.9 Unspecified abdominal pain ==

== ENCOUNTER → 2022-04-14 | Outpatient (CLI) | payer MEDICARE, OTHER | LOC: M PLAIMG 09:55 | PROVIDERS: ATTEND Physician Assistant Medical | DX: R10.31 Right lower quadrant pain (principal); K57.30 Diverticulosis of large intestine without perforation or abscess without bleeding; M48.061 Spinal stenosis, lumbar region without neurogenic claudication ==

== ENCOUNTER → 2022-04-22 | Outpatient (CLI) | payer MEDICARE, OTHER ==
[2022-04-22 12:40] LABS: HEMATOCRIT 40.2 % (42.0-52.0); HEMOGLOBIN 13.1 g/dl (13.5-17.5); MEAN CORPUSCULAR HEMOGLOBIN 30.3 pg (27.0-33.0); MEAN CORPUSCULAR HGB CONC 32.6 g/dl (32.0-36.5); MEAN CORPUSCULAR VOLUME 93.1 fl (80.0-96.0); PLATELET COUNT, AUTOMATED 208 10^3/uL (150-450); RED BLOOD COUNT 4.32 10^6/uL (4.30-6.10); WHITE BLOOD COUNT 13.4 10^3/uL (4.0-10.0)
[2022-04-22 13:32] LABS: ALBUMIN 3.4 GM/DL (3.2-5.2); BILIRUBIN,TOTAL 0.3 MG/DL (0.2-1.0); CALCIUM LEVEL 10.2 MG/DL (8.8-10.2); CREATININE FOR GFR 1.52 MG/DL (0.70-1.30); GLOMERULAR FILTRATION RATE 48.1 (>42); POTASSIUM SERUM 4.6 MEQ/L (3.5-5.1); TOTAL PROTEIN 7.2 GM/DL (6.4-8.2)
== END ==
LOC: M LAB 12:15
PROVIDERS: ATTEND Physician Assistant
DX: R07.9 Chest pain, unspecified (principal)

== ENCOUNTER → 2022-06-20 | Outpatient (REF) | payer MEDICARE, OTHER | LOC: M LAB REF 16:15 | PROVIDERS: ATTEND Physician Assistant Medical | DX: R10.9 Unspecified abdominal pain (principal) ==

== ENCOUNTER → 2022-06-21 | Outpatient (CLI) | payer MEDICARE, OTHER ==
[~2022-06-21] MED LIST changes: +PROHANCE 279.3MG/ML 15ML VIAL As Ordered ONE
== END ==
LOC: M RAD 08:44
PROVIDERS: ATTEND Physician Assistant Medical
DX: R93.5 Abnormal findings on diagnostic imaging of other abdominal regions, including retroperitoneum (principal); R16.2 Hepatomegaly with splenomegaly, not elsewhere classified
CPT/HCPCS: 74183; A9576

== ENCOUNTER → 2022-08-16 | Outpatient (CLI) | payer MEDICARE, OTHER ==
[~2022-08-16] MED LIST changes: +AMLO1TAB25 PO; +ASPI-161 PO; +CLOP75TA2 PO; +FLON1SPR; +FURO40TA2 PO; +METO100T5 PO; +MIRA1POW3 PO; +NITR4TASL SL; +ONDA4TAB6 PO; +PANT20TA6 PO; -PROHANCE 279.3MG/ML 15ML VIAL As Ordered ONE; +SUCR1ORA PO
== END ==
LOC: M LABSMTC 10:53
PROVIDERS: ATTEND Anesthesiology
DX: Z01.812 Encounter for preprocedural laboratory examination (principal); Z20.822 Contact with and (suspected) exposure to COVID-19

== ENCOUNTER 2022-08-17 13:34 | Inpatient (IN) | payer MEDICARE, OTHER ==
[~2022-08-17] VITALS: Ht 180.3 cm; Wt 127.3 kg
[~2022-08-17 13:34] MED LIST changes: -ASPI-161 PO; -FLON1SPR; -FURO40TA2 PO; -MIRA1POW3 PO; -NITR4TASL SL; -ONDA4TAB6 PO
[2022-08-17] MEDS ORDERED: GLYCERIN ADULT SUPP PR ONE (14:45)
[2022-08-17] MEDS ORDERED: ONDANSETRON 4MG 2ML VIAL IV ONE (14:45)
[2022-08-17 15:22] LABS: BASO # 0.1 10^3/uL (0.0-0.2); BASO % 0.7 % (0.0-1.0); EOS # 0.2 10^3/uL (0.0-0.5); EOS % 2.6 % (0.0-3.0); HEMOGLOBIN 11.8 g/dl (13.5-17.5); LYMPH # 1.7 10^3/uL (1.5-5.0); LYMPH % 19.6 % (24.0-44.0); MEAN CORPUSCULAR HEMOGLOBIN 26.9 pg (27.0-33.0); MEAN CORPUSCULAR HGB CONC 31.9 g/dl (32.0-36.5); MEAN CORPUSCULAR VOLUME 84.5 fl (80.0-96.0); MONO # 0.6 10^3/uL (0.0-0.8); MONO % 6.3 % (2.0-8.0); NEUTROPHILS # 6.3 10^3/uL (1.5-8.5); NEUTROPHILS % 70.5 % (36.0-66.0); PLATELET COUNT, AUTOMATED 264 10^3/uL (150-450); RED BLOOD COUNT 4.38 10^6/uL (4.30-6.10); WHITE BLOOD COUNT 8.9 10^3/uL (4.0-10.0)
[2022-08-17 16:06] LABS: ALBUMIN 3.3 GM/DL (3.2-5.2); ALT/SGPT 23 U/L (12-78); BILIRUBIN,DIRECT 0.1 MG/DL (0.0-0.2); BILIRUBIN,TOTAL 0.3 MG/DL (0.2-1.0); BLOOD UREA NITROGEN 18 MG/DL (7-18); CALCIUM LEVEL 10.1 MG/DL (8.8-10.2); CARBON DIOXIDE LEVEL 27 MEQ/L (21-32); CHLORIDE LEVEL 105 MEQ/L (98-107); GLOMERULAR FILTRATION RATE > 60.0 (>42); GLUCOSE, FASTING 119 MG/DL (70-100); LIPASE 111 U/L (73-393); POTASSIUM SERUM 4.3 MEQ/L (3.5-5.1); SODIUM LEVEL 135 MEQ/L (136-145); TOTAL PROTEIN 7.5 GM/DL (6.4-8.2)
[2022-08-17] MEDS ORDERED: ISOVUE-370 76% 100ML VIAL As Ordered ONE (16:45)
[2022-08-17] MEDS ORDERED: MAGNESIUM CITRATE 300 ML BTL PO ONE (17:45)
[2022-08-17] MEDS ORDERED: DOCUSATE SODIUM 100MG CAPSULE PO ONE (17:45)
[2022-08-17 20:27] LABS: RSV AMPLIFICATION NEGATIVE (NEGATIVE)
[2022-08-17] MEDS ORDERED: ACETAMINOPHEN TAB 650MG DOSE (2X325MG) PO PRN (20:35)
[2022-08-17] MEDS ORDERED: MAALOX 30 ML SUSP *UDC PO PRN (20:35)
[2022-08-17] MEDS ORDERED: MOM 30ML SUSPENSION UDC PO PRN (20:35)
[2022-08-17] MEDS ORDERED: DOCUSATE SODIUM 100MG CAPSULE PO SCH (21:00)
[2022-08-17] MEDS ORDERED: DEXTROSE 50% 50 ML SYRINGE IV PRN (22:00)
[2022-08-17] MEDS: MIRALAX *UNIT DOSE* 17GM PACKET PO SCH (22:00)
[2022-08-17] MEDS ORDERED: GLUCAGON INJ 1MG VIAL SC PRN (22:00)
[2022-08-17] MEDS ORDERED: GLUCOSE 4GM CHEW TABLET PO PRN (22:00)
[2022-08-18] MEDS ORDERED: NITR4TASL SL (00:11)
[2022-08-18] MEDS ORDERED: FURO40TA2 PO (00:11)
[2022-08-18] MEDS ORDERED: FLON1SPR (00:11)
[2022-08-18] MEDS ORDERED: ASPI-161 PO (00:11)
[2022-08-18] MEDS ORDERED: HOME MED LIST COMPLETE! XX SCH (00:20)
[2022-08-18] MEDS: HEPARIN SOD (PORCINE) 5000UNITS/ML 1ML VIAL/SYRINGE SQ SCH ×2 (06:43→13:40)
[2022-08-18 07:07] LABS: BASO % 0.4 % (0.0-1.0); EOS # 0.2 10^3/uL (0.0-0.5); EOS % 1.9 % (0.0-3.0); HEMATOCRIT 36.4 % (42.0-52.0); HEMOGLOBIN 11.3 g/dl (13.5-17.5); LYMPH # 1.6 10^3/uL (1.5-5.0); MEAN CORPUSCULAR HEMOGLOBIN 26.5 pg (27.0-33.0); MEAN CORPUSCULAR VOLUME 85.2 fl (80.0-96.0); MONO # 0.6 10^3/uL (0.0-0.8); MONO % 5.6 % (2.0-8.0); NEUTROPHILS # 7.9 10^3/uL (1.5-8.5); NEUTROPHILS % 76.8 % (36.0-66.0); PLATELET COUNT, AUTOMATED 262 10^3/uL (150-450); RED BLOOD COUNT 4.27 10^6/uL (4.30-6.10); WHITE BLOOD COUNT 10.3 10^3/uL (4.0-10.0)
[2022-08-18] MEDS ORDERED: MOM 30ML SUSPENSION UDC PO ONE (07:30)
[2022-08-18] MEDS: INSULIN LISPRO (NovoLOG) PER UNIT SC SCH ×3 (07:30→17:13)
[2022-08-18 07:42] LABS: BLOOD UREA NITROGEN 17 MG/DL (7-18); CALCIUM LEVEL 10.1 MG/DL (8.8-10.2); CARBON DIOXIDE LEVEL 28 MEQ/L (21-32); CHLORIDE LEVEL 106 MEQ/L (98-107); CREATININE FOR GFR 1.15 MG/DL (0.70-1.30); GLOMERULAR FILTRATION RATE > 60.0 (>42); GLUCOSE, FASTING 82 MG/DL (70-100); POTASSIUM SERUM 4.3 MEQ/L (3.5-5.1); SODIUM LEVEL 138 MEQ/L (136-145)
[2022-08-18] MEDS: MIRALAX *UNIT DOSE* 17GM PACKET PO SCH ×2 (08:07→20:17)
[2022-08-18] MEDS: DOCUSATE SODIUM 100MG CAPSULE PO SCH ×2 (08:07→20:17)
[2022-08-18] MEDS: cefTRIAXone SOD 1 GM in D5W MINI-BAG PLUS 50 ML IV SCH (10:07)
[2022-08-18] MEDS: metroNIDAZOLE 500 MG in IV 1 EA IV SCH ×2 (11:25→18:16)
[2022-08-18 11:51] VITALS: BP 158/77
[2022-08-18] MEDS ORDERED: POLYETHYLENE GLYCOL (MIRALAX) 238GM BOTTLE PO ONE (12:00)
[2022-08-18] MEDS ORDERED: FLUBLOK(EGG FREE)(QUAD)INFLUENZA VACC 0.5ML SYRINGE 18YRS & OLDER IM.IMMUN ONE (12:00)
[2022-08-18 13:55] VITALS: BP 111/63
[2022-08-18] MEDS: ONDANSETRON 4MG 2ML VIAL IV PRN ×2 (14:16→20:48)
[2022-08-18] MEDS ORDERED: ALBUTEROL 90 MCG/ACT 8GM HFA INHALER INH PRN (14:20)
[2022-08-18] MEDS ORDERED: NITROGLYCERIN 0.4 MG SUBL TABLET SL PRN (14:20)
[2022-08-18] MEDS: ASPIRIN 81MG ENTERIC TABLET PO SCH (15:05)
[2022-08-18] MEDS: PANTOPRAZOLE 20 MG TAB PO SCH (15:05)
[2022-08-18] MEDS: TAMSULOSIN 0.4 MG CAP PO SCH (15:06)
[2022-08-18] MEDS: NS 1,000 ML IV SCH (15:18)
[2022-08-18] MEDS: LEVOTHYROXINE 125MCG TABLET (0.125MG) PO SCH (15:26)
[2022-08-18] MEDS: SUCRALFATE SUSP 1GM/10ML UD PO SCH ×2 (16:45→21:16)
[2022-08-18 20:00] VITALS: BP 142/78
[2022-08-18] MEDS ORDERED: GABAPENTIN 300 MG CAP PO SCH (21:00)
[2022-08-18] MEDS ORDERED: INSULIN LISPRO (NovoLOG) PER UNIT SC SCH (21:00)
[2022-08-18] MEDS ORDERED: ENOXAPARIN 40MG/0.4ML SYRINGE (J1650 PER 10MG) SC SCH (21:00)
[2022-08-18] MEDS ORDERED: LEVEMIR (INSULIN DETEMIR) 1 UNITS/0.01ML SC SCH (21:00)
[2022-08-18] MEDS: METOPROLOL TARTRATE 100MG TAB PO SCH (21:17)
[2022-08-19] MEDS: NS 1,000 ML IV SCH (02:59)
[2022-08-19] MEDS: metroNIDAZOLE 500 MG in IV 1 EA IV SCH ×2 (02:59→11:41)
[2022-08-19] MEDS ORDERED: POLYETHYLENE GLYCOL (MIRALAX) 238GM BOTTLE PO ONE (05:00)
[2022-08-19] MEDS ORDERED: MIRALAX *UNIT DOSE* 17GM PACKET PO ONE (05:15)
[2022-08-19] MEDS: LEVOTHYROXINE 125MCG TABLET (0.125MG) PO SCH (05:33)
[2022-08-19 06:00] VITALS: BP 147/75
[2022-08-19] MEDS: INSULIN LISPRO (NovoLOG) PER UNIT SC SCH ×3 (07:30→17:15)
[2022-08-19 07:36] LABS: BASO % 0.4 % (0.0-1.0); EOS # 0.2 10^3/uL (0.0-0.5); HEMATOCRIT 38.1 % (42.0-52.0); LYMPH # 1.9 10^3/uL (1.5-5.0); MEAN CORPUSCULAR HEMOGLOBIN 27.3 pg (27.0-33.0); MEAN CORPUSCULAR HGB CONC 31.5 g/dl (32.0-36.5); MEAN CORPUSCULAR VOLUME 86.6 fl (80.0-96.0); MONO # 0.6 10^3/uL (0.0-0.8); MONO % 6.6 % (2.0-8.0); NEUTROPHILS # 6.2 10^3/uL (1.5-8.5); NEUTROPHILS % 69.6 % (36.0-66.0); PLATELET COUNT, AUTOMATED 294 10^3/uL (150-450)
[2022-08-19] MEDS: ONDANSETRON 4MG 2ML VIAL IV PRN (07:39)
[2022-08-19 08:13] LABS: BLOOD UREA NITROGEN 14 MG/DL (7-18); CALCIUM LEVEL 9.7 MG/DL (8.8-10.2); CARBON DIOXIDE LEVEL 28 MEQ/L (21-32); CHLORIDE LEVEL 104 MEQ/L (98-107); GLOMERULAR FILTRATION RATE > 60.0 (>42); GLUCOSE, FASTING 76 MG/DL (70-100); POTASSIUM SERUM 4.1 MEQ/L (3.5-5.1); SODIUM LEVEL 137 MEQ/L (136-145)
[2022-08-19] MEDS ORDERED: ONDANSETRON 4MG 2ML VIAL IV ONE (08:50)
[2022-08-19] MEDS ORDERED: D5W/0.9% SODIUM CHLORIDE 1,000 ML IV SCH (08:50)
[2022-08-19] MEDS: DOCUSATE SODIUM 100MG CAPSULE PO SCH (09:00)
[2022-08-19] MEDS: MIRALAX *UNIT DOSE* 17GM PACKET PO SCH (09:00)
[2022-08-19] MEDS ORDERED: CLOPIDOGREL 75 MG TAB PO SCH (09:00)
[2022-08-19] MEDS ORDERED: GABAPENTIN 300 MG CAP PO SCH (09:00)
[2022-08-19] MEDS ORDERED: fentaNYL 100 MCG/2 ML INJECTION As Ordered ONE (09:17)
[2022-08-19] MEDS ORDERED: propofoL 200 MG/20 ML VIAL As Ordered ONE (09:17)
[2022-08-19] MEDS ORDERED: LIDOCAINE 2% 100MG/5ML SDV (FOR ANES.) As Ordered ONE (09:17)
[2022-08-19] MEDS: cefTRIAXone SOD 1 GM in D5W MINI-BAG PLUS 50 ML IV SCH (09:34)
[2022-08-19] MEDS: ASPIRIN 81MG ENTERIC TABLET PO SCH (09:34)
[2022-08-19] MEDS: TAMSULOSIN 0.4 MG CAP PO SCH (09:35)
[2022-08-19] MEDS: SUCRALFATE SUSP 1GM/10ML UD PO SCH ×2 (09:35→17:14)
[2022-08-19 09:37] VITALS: BP 133/65
[2022-08-19] MEDS: METOPROLOL TARTRATE 100MG TAB PO SCH (09:37)
[2022-08-19] MEDS: PANTOPRAZOLE 20 MG TAB PO SCH (09:39)
[2022-08-19 14:00] VITALS: BP 143/68
[2022-08-19 16:01] LABS: C REACTIVE PROTEIN QUANTITATIV 1.58 MG/DL (0.00-0.30)
[2022-08-19 16:51] LABS: ERYTHROCYTE SEDIMENTATION RATE 64 mm/hr (0-20)
[2022-08-19 17:15] VITALS: BP 123/62
[2022-08-19] MEDS ORDERED: MIRA1POW3 PO (17:17)
[2022-08-19] MEDS ORDERED: TOUJ300I2 SC (17:21)
[2022-08-19 17:45] VITALS: BP 124/64
[2022-08-19 18:15] VITALS: BP 127/61
[2022-08-19] MEDS ORDERED: LEVEMIR (INSULIN DETEMIR) 1 UNITS/0.01ML SC SCH (21:00)
== END 2022-08-19 18:55 | disposition home or self-care (01) | DRG 74 ==
LOC: M ED 13:34 → M ED INP 20:45 → ENRESERV 08-18 11:01 → M MSPAV 08-18 12:40
PROVIDERS: ADMIT Family Medicine; ATTEND Internal Medicine
PROC: 0DJD8ZZ Inspection of Lower Intestinal Tract, Via Natural or Artificial Opening Endoscopic (ICD-10-PCS; 2022-08-19)
PROC: 0DB98ZX Excision of Duodenum, Via Natural or Artificial Opening Endoscopic, Diagnostic (ICD-10-PCS; principal; 2022-08-19 13:45)
DX: E11.43 Type 2 diabetes mellitus with diabetic autonomic (poly)neuropathy (principal); K57.30 Diverticulosis of large intestine without perforation or abscess without bleeding; I11.0 Hypertensive heart disease with heart failure; I50.9 Heart failure, unspecified; E78.5 Hyperlipidemia, unspecified; N40.0 Benign prostatic hyperplasia without lower urinary tract symptoms; G47.33 Obstructive sleep apnea (adult) (pediatric); R10.13 Epigastric pain; K64.8 Other hemorrhoids; R93.3 Abnormal findings on diagnostic imaging of other parts of digestive tract; M10.9 Gout, unspecified; K59.04 Chronic idiopathic constipation; K31.84 Gastroparesis; I25.10 Atherosclerotic heart disease of native coronary artery without angina pectoris; K31.7 Polyp of stomach and duodenum; K21.9 Gastro-esophageal reflux disease without esophagitis; K22.70 Barrett's esophagus without dysplasia; E89.0 Postprocedural hypothyroidism; Z87.891 Personal history of nicotine dependence; Z79.890 Hormone replacement therapy; Z79.4 Long term (current) use of insulin; Z79.82 Long term (current) use of aspirin; Z79.02 Long term (current) use of antithrombotics/antiplatelets; Z79.899 Other long term (current) drug therapy; Z88.0 Allergy status to penicillin; Z88.1 Allergy status to other antibiotic agents; Z88.2 Allergy status to sulfonamides; Z88.8 Allergy status to other drugs, medicaments and biological substances; Z95.1 Presence of aortocoronary bypass graft

== ENCOUNTER 2022-08-30 15:56 | Emergency (ER) | payer MEDICARE, OTHER ==
[~2022-08-30] VITALS: Ht 180.3 cm; Wt 125.5 kg
[~2022-08-30 15:56] MED LIST changes: +ASPI-161 PO; +FLON1SPR; +FURO40TA2 PO; +MIRA1POW3 PO; +NITR4TASL SL
[2022-08-30] MEDS ORDERED: ONDANSETRON 4MG 2ML VIAL IV ONE ×2 (17:30→18:00)
[2022-08-30] MEDS ORDERED: NS 500 ML IV ONE (17:30)
[2022-08-30] MEDS ORDERED: MORPHINE 4 MG/ML 1ML VIAL IV ONE (17:30)
[2022-08-30 18:16] LABS: BASO # 0.1 10^3/uL (0.0-0.2); BASO % 0.6 % (0.0-1.0); EOS # 0.2 10^3/uL (0.0-0.5); EOS % 2.5 % (0.0-3.0); HEMATOCRIT 37.4 % (42.0-52.0); HEMOGLOBIN 11.8 g/dl (13.5-17.5); LYMPH # 1.7 10^3/uL (1.5-5.0); MEAN CORPUSCULAR HEMOGLOBIN 26.5 pg (27.0-33.0); MEAN CORPUSCULAR HGB CONC 31.6 g/dl (32.0-36.5); MONO # 0.6 10^3/uL (0.0-0.8); MONO % 6.5 % (2.0-8.0); NEUTROPHILS % 70.3 % (36.0-66.0); PLATELET COUNT, AUTOMATED 274 10^3/uL (150-450); RED BLOOD COUNT 4.45 10^6/uL (4.30-6.10); WHITE BLOOD COUNT 8.5 10^3/uL (4.0-10.0)
[2022-08-30] MEDS ORDERED: ISOVUE-370 76% 100ML VIAL As Ordered ONE (18:25)
[2022-08-30 18:49] LABS: ALBUMIN 3.4 GM/DL (3.2-5.2); BILIRUBIN,DIRECT 0.1 MG/DL (0.0-0.2); BILIRUBIN,TOTAL 0.4 MG/DL (0.2-1.0); CALCIUM LEVEL 10.2 MG/DL (8.8-10.2); CREATININE FOR GFR 1.27 MG/DL (0.70-1.30); GLOMERULAR FILTRATION RATE 59.2 (>42); POTASSIUM SERUM 4.5 MEQ/L (3.5-5.1); TOTAL PROTEIN 7.5 GM/DL (6.4-8.2)
[2022-08-30] MEDS ORDERED: ONDA4TAB6 PO (20:15)
[2022-08-30 20:29] VITALS: BP 188/83
== END 2022-08-30 20:31 | disposition home or self-care (01) ==
LOC: M ED 15:56
DX: I10 Essential (primary) hypertension (principal); I51.9 Heart disease, unspecified; E11.9 Type 2 diabetes mellitus without complications; E78.5 Hyperlipidemia, unspecified; Z98.84 Bariatric surgery status; Z87.19 Personal history of other diseases of the digestive system; K57.30 Diverticulosis of large intestine without perforation or abscess without bleeding; Z79.82 Long term (current) use of aspirin; Z79.890 Hormone replacement therapy; Z79.4 Long term (current) use of insulin; Z79.899 Other long term (current) drug therapy; Z88.0 Allergy status to penicillin; Z88.2 Allergy status to sulfonamides; Z88.1 Allergy status to other antibiotic agents; Z88.8 Allergy status to other drugs, medicaments and biological substances
CPT/HCPCS: 74177; 80047; 80048; 80076; 83690; 85025; 96361; 96374; 96375; 99284; G0463; J2270; J2405; Q9967

== ENCOUNTER → 2022-09-15 | Outpatient (CLI) | payer MEDICARE, OTHER ==
[~2022-09-15] MED LIST changes: +ISOVUE-370 76% 100ML VIAL As Ordered ONE; +ONDA4TAB6 PO
== END ==
LOC: M RAD 15:13
PROVIDERS: ATTEND Physician Assistant Medical
DX: K57.30 Diverticulosis of large intestine without perforation or abscess without bleeding (principal); K42.9 Umbilical hernia without obstruction or gangrene; R10.84 Generalized abdominal pain
CPT/HCPCS: 74174; Q9967

== ENCOUNTER 2022-11-29 12:45 | Inpatient (IN) | payer MEDICARE, OTHER ==
[~2022-11-29] VITALS: Ht 180.3 cm; Wt 118.2 kg
[2022-11-29] MEDS: METOPROLOL TARTRATE 100MG TAB PO SCH ×2 (09:00→19:46)
[~2022-11-29 12:45] MED LIST changes: -ISOVUE-370 76% 100ML VIAL As Ordered ONE
[2022-11-29] MEDS ORDERED: NS 500 ML IV ONE (13:05)
[2022-11-29] MEDS ORDERED: ISOVUE-370 76% 100ML VIAL As Ordered ONE (13:43)
[2022-11-29 13:49] LABS: BASO # 0.1 10^3/uL (0.0-0.2); BASO % 0.5 % (0.0-1.0); EOS # 0.1 10^3/uL (0.0-0.5); EOS % 0.6 % (0.0-3.0); HEMATOCRIT 40.9 % (42.0-52.0); HEMOGLOBIN 13.4 g/dl (13.5-17.5); LYMPH # 1.5 10^3/uL (1.5-5.0); LYMPH % 13.6 % (24.0-44.0); MEAN CORPUSCULAR HEMOGLOBIN 27.6 pg (27.0-33.0); MEAN CORPUSCULAR HGB CONC 32.8 g/dl (32.0-36.5); MEAN CORPUSCULAR VOLUME 84.3 fl (80.0-96.0); MONO # 0.6 10^3/uL (0.0-0.8); MONO % 5.3 % (2.0-8.0); NEUTROPHILS # 8.6 10^3/uL (1.5-8.5); NEUTROPHILS % 79.5 % (36.0-66.0); PLATELET COUNT, AUTOMATED 227 10^3/uL (150-450); RED BLOOD COUNT 4.85 10^6/uL (4.30-6.10); WHITE BLOOD COUNT 10.8 10^3/uL (4.0-10.0)
[2022-11-29 14:09] LABS: INR 0.97; PROTHROMBIN TIME 13.1 SECONDS (12.5-14.5)
[2022-11-29] MEDS ORDERED: NS 1,000 ML IV ONE (14:10)
[2022-11-29 14:16] LABS: ALBUMIN 3.5 G/DL (3.2-5.2); BILIRUBIN,DIRECT 0.2 MG/DL (<0.4); BILIRUBIN,TOTAL 0.4 MG/DL (0.3-1.2); TOTAL PROTEIN 7.3 G/DL (5.7-8.2)
[2022-11-29 14:21] LABS: RSV AMPLIFICATION NEGATIVE (NEGATIVE)
[2022-11-29] MEDS ORDERED: DEXTROSE 50% 50ML SYRINGE IV PRN (15:35)
[2022-11-29] MEDS ORDERED: GLUCOSE 4GM CHEW TABLET PO PRN (15:35)
[2022-11-29] MEDS ORDERED: GLUCAGON INJ 1MG VIAL SC PRN (15:35)
[2022-11-29] MEDS: NITROGLYCERIN 2% OINT 1 GM *U/D* PKT TOP SCH ×2 (16:28→19:57)
[2022-11-29] MEDS: hydrALAZINE 20MG/ML 1ML VIAL IV SCH ×2 (16:32→19:52)
[2022-11-29] MEDS: INSULIN LISPRO (NovoLOG) PER UNIT SC SCH ×2 (18:26→21:00)
[2022-11-29] MEDS: METOPROLOL TARTRATE 100MG TAB PO ONE ×2 (18:30→20:02)
[2022-11-29] MEDS ORDERED: D5W/0.45% SODIUM CHLORIDE 1,000 ML IV SCH (18:30)
[2022-11-29] MEDS ORDERED: PANTOPRAZOLE 40MG VIAL IV ONE (18:55)
[2022-11-29] MEDS ORDERED: SLOWTAB2 PO (19:21)
[2022-11-29] MEDS ORDERED: LOSA100T45 PO (19:21)
[2022-11-29] MEDS ORDERED: PANT-23 PO (19:21)
[2022-11-29] MEDS ORDERED: METO10TA2 PO (19:24)
[2022-11-29] MEDS ORDERED: FERR32TA PO (19:24)
[2022-11-29] MEDS ORDERED: ATOR80TA59 PO (19:26)
[2022-11-29] MEDS ORDERED: TOUJ300I2 SC (19:26)
[2022-11-29] MEDS ORDERED: med rec comment (19:32)
[2022-11-29] MEDS ORDERED: HOME MED LIST COMPLETE! XX SCH (19:35)
[2022-11-29] MEDS: METOCLOPRAMIDE INJ 10MG/2ML VIAL IV SCH (19:45)
[2022-11-29 23:40] VITALS: BP 174/99
[2022-11-30 00:15] VITALS: BP 132/71
[2022-11-30] MEDS ORDERED: PROMETHAZINE 25MG/ML 1ML VIAL IV PRN (00:55)
[2022-11-30 05:16] VITALS: BP 167/87
[2022-11-30] MEDS: hydrALAZINE 20MG/ML 1ML VIAL IV SCH ×2 (05:22)
[2022-11-30] MEDS: NITROGLYCERIN 2% OINT 1 GM *U/D* PKT TOP SCH ×7 (05:22→23:34)
[2022-11-30] MEDS: LEVOTHYROXINE 125MCG TABLET (0.125MG) PO SCH (05:28)
[2022-11-30] MEDS: METOCLOPRAMIDE INJ 10MG/2ML VIAL IV SCH ×4 (07:30→23:34)
[2022-11-30] MEDS: INSULIN LISPRO (NovoLOG) PER UNIT SC SCH ×4 (07:30→21:32)
[2022-11-30] MEDS ORDERED: METOPROLOL TARTRATE 100MG TAB PO ONE ×2 (08:00→18:05)
[2022-11-30 08:16] LABS: HEMOGLOBIN 12.9 g/dl (13.5-17.5); MEAN CORPUSCULAR HEMOGLOBIN 27.1 pg (27.0-33.0); MEAN CORPUSCULAR HGB CONC 32.3 g/dl (32.0-36.5); PLATELET COUNT, AUTOMATED 248 10^3/uL (150-450); RED BLOOD COUNT 4.76 10^6/uL (4.30-6.10); WHITE BLOOD COUNT 13.8 10^3/uL (4.0-10.0)
[2022-11-30 08:17] VITALS: BP 126/62
[2022-11-30 08:41] LABS: BLOOD UREA NITROGEN 23 MG/DL (9-23); CALCIUM LEVEL 9.2 MG/DL (8.3-10.6); CARBON DIOXIDE LEVEL 24 MMOL/L (20-31); CHLORIDE LEVEL 103 MMOL/L (98-107); CREATININE FOR GFR 0.99 MG/DL (0.70-1.30); GLOMERULAR FILTRATION RATE > 60.0 (>42); GLUCOSE, FASTING 239 MG/DL (74-106); POTASSIUM SERUM 3.7 MMOL/L (3.5-5.1); SODIUM LEVEL 136 MMOL/L (136-145)
[2022-11-30] MEDS: CLOPIDOGREL 75 MG TAB PO SCH (09:00)
[2022-11-30] MEDS: FLUTICASONE PROP 0.05% NASAL SPRAY 16 GM (FLONASE) NARES SCH (09:00)
[2022-11-30] MEDS: TAMSULOSIN 0.4 MG CAP PO SCH (09:00)
[2022-11-30] MEDS: ASPIRIN 81MG ENTERIC TABLET PO SCH (09:00)
[2022-11-30] MEDS: NS 1,000 ML IV SCH ×2 (09:51→23:34)
[2022-11-30 12:31] VITALS: BP 141/63
[2022-11-30 16:00] VITALS: BP 166/81
[2022-11-30] MEDS ORDERED: ONDANSETRON 4MG 2ML VIAL IV SCH (16:00)
[2022-11-30] MEDS: ENOXAPARIN 40MG/0.4ML SYRINGE (J1650 PER 10MG) SC SCH (17:01)
[2022-11-30] MEDS: PANTOPRAZOLE 40MG VIAL IV SCH (17:03)
[2022-11-30] MEDS ORDERED: diphenhydrAMINE 50MG/ML VIAL IV STA (17:47)
[2022-11-30] MEDS ORDERED: ONDANSETRON 4MG 2ML VIAL IV PRN (18:10)
[2022-11-30 18:45] LABS: C REACTIVE PROTEIN QUANTITATIV < 0.40 MG/DL (<1.0)
[2022-11-30 18:48] LABS: PROLACTIN 20.85 NG/ML (2.1-17.7)
[2022-11-30 19:57] VITALS: BP 107/58
[2022-11-30] MEDS ORDERED: GABAPENTIN 300 MG CAP PO SCH (21:00)
[2022-12-01 04:19] VITALS: BP 167/81
[2022-12-01] MEDS: NITROGLYCERIN 2% OINT 1 GM *U/D* PKT TOP SCH ×3 (04:29→12:00)
[2022-12-01 05:19] LABS: HEMATOCRIT 36.3 % (42.0-52.0); HEMOGLOBIN 11.7 g/dl (13.5-17.5); MEAN CORPUSCULAR HEMOGLOBIN 27.7 pg (27.0-33.0); MEAN CORPUSCULAR HGB CONC 32.2 g/dl (32.0-36.5); PLATELET COUNT, AUTOMATED 195 10^3/uL (150-450); RED BLOOD COUNT 4.22 10^6/uL (4.30-6.10); WHITE BLOOD COUNT 10.2 10^3/uL (4.0-10.0)
[2022-12-01 05:39] LABS: BLOOD UREA NITROGEN 24 MG/DL (9-23); CALCIUM LEVEL 9.1 MG/DL (8.3-10.6); CARBON DIOXIDE LEVEL 25 MMOL/L (20-31); CHLORIDE LEVEL 104 MMOL/L (98-107); CREATININE FOR GFR 1.09 MG/DL (0.70-1.30); GLOMERULAR FILTRATION RATE > 60.0 (>42); GLUCOSE, FASTING 161 MG/DL (74-106); POTASSIUM SERUM 3.6 MMOL/L (3.5-5.1); SODIUM LEVEL 138 MMOL/L (136-145)
[2022-12-01] MEDS: METOCLOPRAMIDE INJ 10MG/2ML VIAL IV SCH ×2 (06:02→12:53)
[2022-12-01] MEDS: LEVOTHYROXINE 125MCG TABLET (0.125MG) PO SCH (06:02)
[2022-12-01 08:00] VITALS: BP 142/88
[2022-12-01] MEDS: ENOXAPARIN 40MG/0.4ML SYRINGE (J1650 PER 10MG) SC SCH (08:44)
[2022-12-01] MEDS: INSULIN LISPRO (NovoLOG) PER UNIT SC SCH ×2 (08:44→12:55)
[2022-12-01] MEDS: FLUTICASONE PROP 0.05% NASAL SPRAY 16 GM (FLONASE) NARES SCH (08:44)
[2022-12-01] MEDS: PANTOPRAZOLE 40MG VIAL IV SCH (08:45)
[2022-12-01] MEDS: TAMSULOSIN 0.4 MG CAP PO SCH (08:46)
[2022-12-01] MEDS: ASPIRIN 81MG ENTERIC TABLET PO SCH (08:46)
[2022-12-01] MEDS: CLOPIDOGREL 75 MG TAB PO SCH (08:47)
[2022-12-01] MEDS ORDERED: SUCR1SS PO (08:55)
[2022-12-01] MEDS ORDERED: METOPROLOL TARTRATE 100MG TAB PO SCH (09:00)
[2022-12-01 12:00] VITALS: BP 117/58
[2022-12-01 12:49] VITALS: BP 117/58
[2022-12-01 16:00] VITALS: BP 158/88
== END 2022-12-01 18:06 | disposition home or self-care (01) | DRG 74 ==
LOC: M ED 15:30 → M ED INP 15:33 → M PCU 23:35
PROVIDERS: ADMIT General Practice; ATTEND General Practice
DX: E11.43 Type 2 diabetes mellitus with diabetic autonomic (poly)neuropathy (principal); I50.32 Chronic diastolic (congestive) heart failure; I11.0 Hypertensive heart disease with heart failure; K31.7 Polyp of stomach and duodenum; E78.5 Hyperlipidemia, unspecified; G47.33 Obstructive sleep apnea (adult) (pediatric); N40.0 Benign prostatic hyperplasia without lower urinary tract symptoms; M10.9 Gout, unspecified; K31.84 Gastroparesis; K22.70 Barrett's esophagus without dysplasia; K21.9 Gastro-esophageal reflux disease without esophagitis; D63.8 Anemia in other chronic diseases classified elsewhere; K44.9 Diaphragmatic hernia without obstruction or gangrene; K64.8 Other hemorrhoids; Z87.891 Personal history of nicotine dependence; I16.0 Hypertensive urgency; I25.10 Atherosclerotic heart disease of native coronary artery without angina pectoris; Z95.5 Presence of coronary angioplasty implant and graft; E66.9 Obesity, unspecified; Z68.36 Body mass index [BMI] 36.0-36.9, adult; Z20.822 Contact with and (suspected) exposure to COVID-19; Z79.82 Long term (current) use of aspirin; Z79.4 Long term (current) use of insulin; Z79.890 Hormone replacement therapy; Z79.899 Other long term (current) drug therapy; Z88.0 Allergy status to penicillin; Z88.1 Allergy status to other antibiotic agents; Z88.2 Allergy status to sulfonamides

== ENCOUNTER → 2023-01-18 | Outpatient (CLI) | payer MEDICARE, OTHER ==
[~2023-01-18] MED LIST changes: +ATOR80TA59 PO; +FERR32TA PO; +LOSA100T45 PO; +METO10TA2 PO; +PANT-23 PO; +SLOWTAB2 PO; +SUCR1SS PO; +med rec comment
== END ==
LOC: M RAD 09:00
PROVIDERS: ATTEND Internal Medicine Gastroenterology
DX: K76.0 Fatty (change of) liver, not elsewhere classified (principal); Q61.02 Congenital multiple renal cysts; K82.8 Other specified diseases of gallbladder

== ENCOUNTER → 2023-02-20 | Outpatient (CLI) | payer MEDICARE, OTHER ==
[~2023-02-20] MED LIST changes: +FLUT50SP17 NARES; -FLUTISP NARES
[2023-02-20 09:15] LABS: BLOOD UREA NITROGEN 16 MG/DL (9-23); CREATININE FOR GFR 1.07 MG/DL (0.70-1.30); GLOMERULAR FILTRATION RATE > 60.0 (>42)
== END ==
LOC: M LAB 08:22
PROVIDERS: ATTEND Otolaryngology
DX: Z01.812 Encounter for preprocedural laboratory examination (principal); R42 Dizziness and giddiness

== ENCOUNTER → 2023-02-21 | Outpatient (CLI) | payer MEDICARE, OTHER ==
[~2023-02-21] MED LIST changes: +ISOVUE-370 76% 100ML VIAL As Ordered ONE
== END ==
LOC: M RAD 13:15
PROVIDERS: ATTEND Otolaryngology
DX: G50.1 Atypical facial pain (principal)
CPT/HCPCS: 70491; Q9967

== ENCOUNTER → 2023-03-27 | Outpatient (CLI) | payer MEDICARE, OTHER ==
[~2023-03-27] MED LIST changes: -ISOVUE-370 76% 100ML VIAL As Ordered ONE; -LOSA100T45 PO; +LOSA100T46 PO
== END ==
LOC: M RAD 07:57
PROVIDERS: ATTEND Internal Medicine Gastroenterology
DX: K82.8 Other specified diseases of gallbladder (principal)
CPT/HCPCS: 78227; A9537

== ENCOUNTER 2023-04-25 14:29 | Inpatient (IN) | payer MEDICARE, OTHER ==
[~2023-04-25] VITALS: Ht 180.3 cm; Wt 122.1 kg
[2023-04-25 14:59] LABS: ABG BASE EXCESS 0.4 (-2.0-2.0); ABG HCO3 23.5 MMOL/L (22.0-26.0); ABG O2 SATURATION 93.4 % (95.0-99.0); ABG PARTIAL PRESSURE CO2 33.5 mmHg (35.0-45.0); ABG PARTIAL PRESSURE O2 63.1 mmHg (75.0-100.0); ABG STANDARD HCO3 24.8 MMOL/L. (22.0-26.0); ABG TOTAL CO2 24.5 MMOL/L (23.0-31.0); ABG pH (ARTERIAL) 7.464 UNITS (7.350-7.450)
[2023-04-25 15:04] LABS: BASO % 0.4 % (0.0-1.0); EOS % 0.3 % (0.0-3.0); HEMATOCRIT 40.2 % (42.0-52.0); HEMOGLOBIN 13.8 g/dl (13.5-17.5); LYMPH # 1.2 10^3/uL (1.5-5.0); LYMPH % 15.5 % (24.0-44.0); MEAN CORPUSCULAR HEMOGLOBIN 29.1 pg (27.0-33.0); MEAN CORPUSCULAR HGB CONC 34.3 g/dl (32.0-36.5); MEAN CORPUSCULAR VOLUME 84.8 fl (80.0-96.0); MONO # 0.2 10^3/uL (0.0-0.8); MONO % 2.9 % (2.0-8.0); NEUTROPHILS # 6.3 10^3/uL (1.5-8.5); NEUTROPHILS % 80.5 % (36.0-66.0); PLATELET COUNT, AUTOMATED 200 10^3/uL (150-450); RED BLOOD COUNT 4.74 10^6/uL (4.30-6.10); WHITE BLOOD COUNT 7.8 10^3/uL (4.0-10.0)
[2023-04-25] MEDS ORDERED: METOCLOPRAMIDE INJ 10MG/2ML VIAL IV ONE (15:10)
[2023-04-25 15:22] LABS: INR 0.94; PROTHROMBIN TIME 12.8 SECONDS (12.5-14.5)
[2023-04-25 15:23] LABS: PARTIAL THROMBOPLASTIN TIME 32.6 SECONDS (24.8-34.2)
[2023-04-25 15:29] LABS: LIPASE 33 U/L (12-53)
[2023-04-25 15:31] LABS: ALBUMIN 3.6 G/DL (3.2-5.2); ALKALINE PHOSPHATASE 113 U/L (46-116); ALT/SGPT 27 U/L (7.0-40); AST/SGOT 25 U/L (<34); BILIRUBIN,DIRECT 0.1 MG/DL (<0.4); BILIRUBIN,TOTAL 0.5 MG/DL (0.3-1.2); BLOOD UREA NITROGEN 16 MG/DL (9-23); CALCIUM LEVEL 9.9 MG/DL (8.3-10.6); CARBON DIOXIDE LEVEL 23 MMOL/L (20-31); CHLORIDE LEVEL 101 MMOL/L (98-107); CREATININE FOR GFR 0.96 MG/DL (0.70-1.30); GLOMERULAR FILTRATION RATE > 60.0 (>42); GLUCOSE, FASTING 314 MG/DL (74-106); POTASSIUM SERUM 4.6 MMOL/L (3.5-5.1); SODIUM LEVEL 134 MMOL/L (136-145); TOTAL PROTEIN 7.6 G/DL (5.7-8.2)
[2023-04-25 15:35] LABS: THYROID STIMULATING HORMONE 1.151 uIU/ML (0.55-4.78)
[2023-04-25 15:38] LABS: CPK CREATINE PHOSPHOKINASE 79 U/L (46-171); MB/CK RELATIVE INDEX 1.26 (< OR =4)
[2023-04-25] MEDS ORDERED: ISOVUE-370 76% 100ML VIAL As Ordered ONE (16:58)
[2023-04-25] MEDS ORDERED: HYDROMORPHONE HCL 0.5 MG/ 0.5 ML SYRINGE IV PRN ×2 (17:05→21:15)
[2023-04-25 17:19] LABS: CK-MB VALUE MASS < 1.0 NG/ML (<3.6)
[2023-04-25 17:21] LABS: CPK CREATINE PHOSPHOKINASE 75 U/L (46-171); MB/CK RELATIVE INDEX 1.33 (< OR =4)
[2023-04-25] MEDS ORDERED: NITROGLYCERIN 2% OINT 1 GM *U/D* PKT TOP ONE (18:20)
[2023-04-25] MEDS ORDERED: GLUCAGON INJ 1MG VIAL SC PRN (19:30)
[2023-04-25] MEDS ORDERED: GLUCOSE 4GM CHEW TABLET PO PRN (19:30)
[2023-04-25] MEDS ORDERED: ONDANSETRON 4MG 2ML VIAL IV ONE (19:30)
[2023-04-25] MEDS ORDERED: DEXTROSE 50% 50ML SYRINGE IV PRN (19:30)
[2023-04-25] MEDS ORDERED: HOME MED LIST COMPLETE! XX SCH (20:20)
[2023-04-25] MEDS ORDERED: LR 1,000 ML IV SCH (21:15)
[2023-04-25] MEDS: NITROGLYCERIN 2% OINT 1 GM *U/D* PKT TOP SCH (21:32)
[2023-04-25 21:40] LABS: MAGNESIUM LEVEL 1.8 MG/DL (1.8-2.4)
[2023-04-25] MEDS: METOCLOPRAMIDE INJ 10MG/2ML VIAL IV SCH (21:47)
[2023-04-25] MEDS ORDERED: LABETALOL 100MG/20ML VIAL IV PRN (22:00)
[2023-04-25] MEDS ORDERED: ACETAMINOPHEN 1000MG 100ML IV BAG IV ONE (22:00)
[2023-04-25 22:15] LABS: VENOUS HCO3 23.1 MMOL/L (23.0-27.0); VENOUS O2 SATURATION 94.1 % (60.0-80.0); VENOUS PARTIAL PRESSURE CO2 40.9 mmHg (38.0-50.0); VENOUS PARTIAL PRESSURE O2 71.9 mmHg (30.0-50.0); VENOUS STANDARD HCO3 22.7 MMOL/L; VENOUS TOTAL CO2 24.4 MMOL/L (24.0-28.0)
[2023-04-25 22:43] LABS: HEMOGLOBIN A1c 9.2 % (4.0-6.0)
[2023-04-25 22:53] LABS: BLOOD UREA NITROGEN 17 MG/DL (9-23); CALCIUM LEVEL 9.3 MG/DL (8.3-10.6); CARBON DIOXIDE LEVEL 26 MMOL/L (20-31); CHLORIDE LEVEL 101 MMOL/L (98-107); CREATININE FOR GFR 1.04 MG/DL (0.70-1.30); GLOMERULAR FILTRATION RATE > 60.0 (>42); GLUCOSE, FASTING 335 MG/DL (74-106); POTASSIUM SERUM 4.5 MMOL/L (3.5-5.1); SODIUM LEVEL 135 MMOL/L (136-145)
[2023-04-26] VITALS (35 sets, daily range): BP systolic 145–194; BP diastolic 70–102; TEMP 97–97.7; O2SAT 88–97
[2023-04-26] MEDS ORDERED: ALBUTEROL 90 MCG/ACT 8GM HFA INHALER INH PRN (00:55)
[2023-04-26] MEDS ORDERED: ONDANSETRON 4MG 2ML VIAL IV PRN (00:55)
[2023-04-26] MEDS: NITROGLYCERIN 2% OINT 1 GM *U/D* PKT TOP SCH ×2 (01:13→04:39)
[2023-04-26] MEDS: INSULIN LISPRO (NovoLOG) PER UNIT SC SCH ×4 (01:17→17:15)
[2023-04-26] MEDS ORDERED: PANTOPRAZOLE 40MG VIAL IV SCH (02:00)
[2023-04-26] MEDS: ONDANSETRON 4MG 2ML VIAL IV PRN ×2 (02:00→08:49)
[2023-04-26] MEDS ORDERED: PROMETHAZINE 25MG/ML 1ML VIAL IV ONE (03:00)
[2023-04-26] MEDS ORDERED: diphenhydrAMINE 50MG/ML VIAL IV ONE (03:00)
[2023-04-26] MEDS: METOCLOPRAMIDE INJ 10MG/2ML VIAL IV SCH ×3 (03:19→16:00)
[2023-04-26 05:38] LABS: HEMATOCRIT 38.3 % (42.0-52.0); MEAN CORPUSCULAR HEMOGLOBIN 29.1 pg (27.0-33.0); MEAN CORPUSCULAR HGB CONC 33.9 g/dl (32.0-36.5); MEAN CORPUSCULAR VOLUME 85.9 fl (80.0-96.0); PLATELET COUNT, AUTOMATED 199 10^3/uL (150-450); RED BLOOD COUNT 4.46 10^6/uL (4.30-6.10); WHITE BLOOD COUNT 12.7 10^3/uL (4.0-10.0)
[2023-04-26 06:21] LABS: ALBUMIN 3.3 G/DL (3.2-5.2); ALKALINE PHOSPHATASE 103 U/L (46-116); ALT/SGPT 21 U/L (7.0-40); AST/SGOT 11 U/L (<34); BILIRUBIN,TOTAL 0.3 MG/DL (0.3-1.2); BLOOD UREA NITROGEN 20 MG/DL (9-23); CALCIUM LEVEL 9.6 MG/DL (8.3-10.6); CARBON DIOXIDE LEVEL 27 MMOL/L (20-31); CHLORIDE LEVEL 102 MMOL/L (98-107); CREATININE FOR GFR 1.17 MG/DL (0.70-1.30); GLOMERULAR FILTRATION RATE > 60.0 (>42); GLUCOSE, FASTING 275 MG/DL (74-106); MAGNESIUM LEVEL 1.9 MG/DL (1.8-2.4); SODIUM LEVEL 136 MMOL/L (136-145)
[2023-04-26] MEDS ORDERED: hydrALAZINE 20MG/ML 1ML VIAL IV PRN (07:25)
[2023-04-26] MEDS: NS 1,000 ML IV SCH ×2 (07:30→19:51)
[2023-04-26] MEDS: LEVEMIR (INSULIN DETEMIR) 1 UNITS/0.01ML SC SCH ×2 (08:50→20:18)
[2023-04-26] MEDS: CAPSAICIN 0.025% CR 60 GM TOP SCH ×2 (08:51→20:12)
[2023-04-26] MEDS: ACETAMINOPHEN TAB 650MG DOSE (2X325MG) PO PRN ×2 (10:46→16:14)
[2023-04-26] MEDS: ASPIRIN 81MG ENTERIC TABLET PO SCH (13:51)
[2023-04-26] MEDS: FERROUS GLUCONATE 324 MG TAB PO SCH (13:52)
[2023-04-26] MEDS: TAMSULOSIN 0.4 MG CAP PO SCH (13:52)
[2023-04-26] MEDS: CLOPIDOGREL 75 MG TAB PO SCH (13:52)
[2023-04-26] MEDS: PANTOPRAZOLE 40MG TAB (PROTONIX) PO SCH (13:52)
[2023-04-26] MEDS: LOSARTAN 50MG TABLET PO SCH (13:53)
[2023-04-26] MEDS: FLUTICASONE PROP 0.05% NASAL SPRAY 16 GM (FLONASE) SCH (20:09)
[2023-04-26] MEDS: ATORVASTATIN 20 MG TAB PO SCH ×2 (20:10→20:15)
[2023-04-26] MEDS: GABAPENTIN 300 MG CAP PO SCH (20:10)
[2023-04-26] MEDS: METOPROLOL TARTRATE 100MG TAB PO SCH (20:11)
[2023-04-27] VITALS (28 sets, daily range): BP systolic 130–165; BP diastolic 58–79; TEMP 97–97.8; O2SAT 83–98
[2023-04-27] MEDS: INSULIN LISPRO (NovoLOG) PER UNIT SC SCH ×4 (00:25→17:24)
[2023-04-27] MEDS: LEVOTHYROXINE 125MCG TABLET (0.125MG) PO SCH (05:30)
[2023-04-27] MEDS: NS 1,000 ML IV SCH (05:36)
[2023-04-27 06:10] LABS: HEMATOCRIT 35.5 % (42.0-52.0); HEMOGLOBIN 11.7 g/dl (13.5-17.5); MEAN CORPUSCULAR VOLUME 88.1 fl (80.0-96.0); PLATELET COUNT, AUTOMATED 164 10^3/uL (150-450); RED BLOOD COUNT 4.03 10^6/uL (4.30-6.10); WHITE BLOOD COUNT 9.2 10^3/uL (4.0-10.0)
[2023-04-27 06:31] LABS: ALBUMIN 2.9 G/DL (3.2-5.2); ALKALINE PHOSPHATASE 87 U/L (46-116); ALT/SGPT 18 U/L (7.0-40); AST/SGOT 17 U/L (<34); BILIRUBIN,TOTAL 0.4 MG/DL (0.3-1.2); BLOOD UREA NITROGEN 17 MG/DL (9-23); CALCIUM LEVEL 8.6 MG/DL (8.3-10.6); CARBON DIOXIDE LEVEL 28 MMOL/L (20-31); CHLORIDE LEVEL 106 MMOL/L (98-107); CREATININE FOR GFR 1.17 MG/DL (0.70-1.30); GLOMERULAR FILTRATION RATE > 60.0 (>42); GLUCOSE, FASTING 135 MG/DL (74-106); POTASSIUM SERUM 3.6 MMOL/L (3.5-5.1); SODIUM LEVEL 140 MMOL/L (136-145); TOTAL PROTEIN 5.9 G/DL (5.7-8.2)
[2023-04-27] MEDS: FERROUS GLUCONATE 324 MG TAB PO SCH (09:00)
[2023-04-27] MEDS: CAPSAICIN 0.025% CR 60 GM TOP SCH ×2 (09:00→20:37)
[2023-04-27] MEDS: LEVEMIR (INSULIN DETEMIR) 1 UNITS/0.01ML SC SCH ×2 (09:21→20:36)
[2023-04-27] MEDS: LOSARTAN 50MG TABLET PO SCH (09:21)
[2023-04-27] MEDS: PANTOPRAZOLE 40MG TAB (PROTONIX) PO SCH (09:22)
[2023-04-27] MEDS: ASPIRIN 81MG ENTERIC TABLET PO SCH (09:22)
[2023-04-27] MEDS: CLOPIDOGREL 75 MG TAB PO SCH (09:22)
[2023-04-27] MEDS: GABAPENTIN 300 MG CAP PO SCH ×2 (09:22→20:35)
[2023-04-27] MEDS: TAMSULOSIN 0.4 MG CAP PO SCH (09:22)
[2023-04-27] MEDS: METOPROLOL TARTRATE 100MG TAB PO SCH ×2 (09:22→20:34)
[2023-04-27] MEDS ORDERED: FUROSEMIDE 20MG/2ML VIAL IV ONE (11:45)
[2023-04-27] MEDS ORDERED: INSULIN LISPRO (NovoLOG) PER UNIT SC SCH ×2 (12:00→21:00)
[2023-04-27] MEDS: METOCLOPRAMIDE 10MG TAB PO SCH ×3 (12:45→20:36)
[2023-04-27] MEDS ORDERED: TOUJ300I2 SC (18:23)
[2023-04-27] MEDS: FLUTICASONE PROP 0.05% NASAL SPRAY 16 GM (FLONASE) SCH ×2 (20:36→20:39)
[2023-04-27] MEDS: ATORVASTATIN 20 MG TAB PO SCH (20:40)
[2023-04-28] VITALS (17 sets, daily range): BP systolic 156–189; BP diastolic 74–94; TEMP 97.6–98.3; O2SAT 93–97
[2023-04-28] MEDS: LEVOTHYROXINE 125MCG TABLET (0.125MG) PO SCH (05:41)
[2023-04-28 06:28] LABS: HEMATOCRIT 36.8 % (42.0-52.0); HEMOGLOBIN 12.2 g/dl (13.5-17.5); MEAN CORPUSCULAR HEMOGLOBIN 29.1 pg (27.0-33.0); MEAN CORPUSCULAR HGB CONC 33.2 g/dl (32.0-36.5); MEAN CORPUSCULAR VOLUME 87.8 fl (80.0-96.0); PLATELET COUNT, AUTOMATED 160 10^3/uL (150-450); RED BLOOD COUNT 4.19 10^6/uL (4.30-6.10); WHITE BLOOD COUNT 8.5 10^3/uL (4.0-10.0)
[2023-04-28 06:59] LABS: ALBUMIN 2.9 G/DL (3.2-5.2); ALKALINE PHOSPHATASE 92 U/L (46-116); ALT/SGPT 19 U/L (7.0-40); AST/SGOT 12 U/L (<34); BILIRUBIN,TOTAL 0.3 MG/DL (0.3-1.2); BLOOD UREA NITROGEN 19 MG/DL (9-23); CALCIUM LEVEL 9.8 MG/DL (8.3-10.6); CARBON DIOXIDE LEVEL 27 MMOL/L (20-31); CHLORIDE LEVEL 102 MMOL/L (98-107); CREATININE FOR GFR 1.14 MG/DL (0.70-1.30); GLOMERULAR FILTRATION RATE > 60.0 (>42); GLUCOSE, FASTING 248 MG/DL (74-106); POTASSIUM SERUM 3.7 MMOL/L (3.5-5.1); SODIUM LEVEL 137 MMOL/L (136-145)
[2023-04-28] MEDS: ASPIRIN 81MG ENTERIC TABLET PO SCH (07:57)
[2023-04-28] MEDS: TAMSULOSIN 0.4 MG CAP PO SCH (07:57)
[2023-04-28] MEDS: LEVEMIR (INSULIN DETEMIR) 1 UNITS/0.01ML SC SCH (07:57)
[2023-04-28] MEDS: GABAPENTIN 300 MG CAP PO SCH (07:57)
[2023-04-28] MEDS: INSULIN LISPRO (NovoLOG) PER UNIT SC SCH (07:57)
[2023-04-28] MEDS: CLOPIDOGREL 75 MG TAB PO SCH (07:58)
[2023-04-28] MEDS: FERROUS GLUCONATE 324 MG TAB PO SCH (07:58)
[2023-04-28] MEDS: LOSARTAN 50MG TABLET PO SCH (07:58)
[2023-04-28] MEDS: METOPROLOL TARTRATE 100MG TAB PO SCH (07:58)
[2023-04-28] MEDS: CAPSAICIN 0.025% CR 60 GM TOP SCH (07:58)
[2023-04-28] MEDS: METOCLOPRAMIDE 10MG TAB PO SCH (07:58)
[2023-04-28] MEDS: PANTOPRAZOLE 40MG TAB (PROTONIX) PO SCH (07:58)
[2023-04-28] MEDS ORDERED: TOUJ300I2 SC (09:35)
== END 2023-04-28 12:10 | disposition home or self-care (01) | DRG 73 ==
LOC: M ED 14:29 → EDBD 14:29 → M ED INP 21:09 → ENRESERV 22:42 → M PCU 04-26 00:49
PROVIDERS: ADMIT Family Medicine; ATTEND Internal Medicine
DX: E11.43 Type 2 diabetes mellitus with diabetic autonomic (poly)neuropathy (principal); G92.8 Other toxic encephalopathy; I50.32 Chronic diastolic (congestive) heart failure; I67.4 Hypertensive encephalopathy; K31.84 Gastroparesis; I11.0 Hypertensive heart disease with heart failure; E78.5 Hyperlipidemia, unspecified; G47.33 Obstructive sleep apnea (adult) (pediatric); N40.0 Benign prostatic hyperplasia without lower urinary tract symptoms; M10.9 Gout, unspecified; K21.9 Gastro-esophageal reflux disease without esophagitis; K22.70 Barrett's esophagus without dysplasia; K44.9 Diaphragmatic hernia without obstruction or gangrene; K57.30 Diverticulosis of large intestine without perforation or abscess without bleeding; E11.65 Type 2 diabetes mellitus with hyperglycemia; K64.9 Unspecified hemorrhoids; E89.0 Postprocedural hypothyroidism; I16.0 Hypertensive urgency; I25.10 Atherosclerotic heart disease of native coronary artery without angina pectoris; E66.9 Obesity, unspecified; Z68.37 Body mass index [BMI] 37.0-37.9, adult; Z79.82 Long term (current) use of aspirin; Z79.4 Long term (current) use of insulin; Z95.1 Presence of aortocoronary bypass graft; Z79.899 Other long term (current) drug therapy; Z87.891 Personal history of nicotine dependence; Z88.1 Allergy status to other antibiotic agents; Z88.0 Allergy status to penicillin; Z79.890 Hormone replacement therapy; Z88.2 Allergy status to sulfonamides; Z88.8 Allergy status to other drugs, medicaments and biological substances; T40.2X5A Adverse effect of other opioids, initial encounter

== ENCOUNTER 2023-07-24 08:46 | Inpatient (IN) | payer MEDICARE, OTHER ==
[~2023-07-24] VITALS: Ht 188 cm; Wt 124.2 kg
[2023-07-24 09:31] LABS: BASO % 0.2 % (0.0-1.0); HEMATOCRIT 45.7 % (42.0-52.0); HEMOGLOBIN 15.4 g/dl (13.5-17.5); LYMPH % 7.3 % (24.0-44.0); MEAN CORPUSCULAR HEMOGLOBIN 28.9 pg (27.0-33.0); MEAN CORPUSCULAR HGB CONC 33.7 g/dl (32.0-36.5); MEAN CORPUSCULAR VOLUME 85.7 fl (80.0-96.0); MONO # 0.5 10^3/uL (0.0-0.8); MONO % 3.2 % (2.0-8.0); NEUTROPHILS # 12.7 10^3/uL (1.5-8.5); NEUTROPHILS % 88.9 % (36.0-66.0); PLATELET COUNT, AUTOMATED 239 10^3/uL (150-450); RED BLOOD COUNT 5.33 10^6/uL (4.30-6.10); WHITE BLOOD COUNT 14.3 10^3/uL (4.0-10.0)
[2023-07-24 09:45] LABS: LIPASE 30 U/L (12-53)
[2023-07-24] MEDS ORDERED: FUROSEMIDE 40 MG TAB PO ONE (09:45)
[2023-07-24] MEDS ORDERED: METOPROLOL TARTRATE 100MG TAB PO ONE (09:45)
[2023-07-24] MEDS ORDERED: CLOPIDOGREL 75 MG TAB PO ONE (09:45)
[2023-07-24 09:52] LABS: RSV AMPLIFICATION NEGATIVE (NEGATIVE)
[2023-07-24 09:52] LABS: ALBUMIN 3.6 G/DL (3.2-5.2); ALKALINE PHOSPHATASE 102 U/L (46-116); ALT/SGPT 36 U/L (7.0-40); AST/SGOT 37 U/L (<34); BILIRUBIN,DIRECT 0.2 MG/DL (<0.4); BILIRUBIN,TOTAL 0.6 MG/DL (0.3-1.2); BLOOD UREA NITROGEN 20 MG/DL (9-23); CALCIUM LEVEL 9.9 MG/DL (8.3-10.6); CARBON DIOXIDE LEVEL 26 MMOL/L (20-31); CHLORIDE LEVEL 95 MMOL/L (98-107); CK-MB VALUE MASS 1.7 NG/ML (<3.6); CPK CREATINE PHOSPHOKINASE 88 U/L (46-171); CREATININE FOR GFR 1.18 MG/DL (0.70-1.30); FREE T4 1.26 NG/DL (0.89-1.76); GLOMERULAR FILTRATION RATE > 60.0 (>42); GLUCOSE, FASTING 408 MG/DL (74-106); MB/CK RELATIVE INDEX 1.93 (< OR =4); POTASSIUM SERUM 4.8 MMOL/L (3.5-5.1); SODIUM LEVEL 131 MMOL/L (136-145); THYROID STIMULATING HORMONE 2.069 uIU/ML (0.55-4.78); TOTAL PROTEIN 8.2 G/DL (5.7-8.2)
[2023-07-24] MEDS ORDERED: ISOVUE-370 76% 100ML VIAL As Ordered ONE (10:13)
[2023-07-24] MEDS ORDERED: hydrALAZINE 20MG/ML 1ML VIAL IV STA (11:54)
[2023-07-24] MEDS ORDERED: MED REC IN PROGRESS XX SCH ×2 (13:05→14:30)
[2023-07-24] MEDS ORDERED: MED REC CURRENTLY UNOBTAINABLE XX SCH (13:25)
[2023-07-24] MEDS ORDERED: GLUCAGON INJ 1MG VIAL SC PRN (13:35)
[2023-07-24] MEDS ORDERED: GLUCOSE 4GM CHEW TABLET PO PRN (13:35)
[2023-07-24] MEDS ORDERED: ONDANSETRON 4MG 2ML VIAL IV PRN (13:35)
[2023-07-24] MEDS ORDERED: DEXTROSE 50% 50ML SYRINGE IV PRN (13:35)
[2023-07-24] MEDS ORDERED: hydrALAZINE 20MG/ML 1ML VIAL IV PRN ×2 (13:35→16:40)
[2023-07-24] MEDS ORDERED: MORPHINE 2 MG/ML 1ML VIAL IV PRN (13:35)
[2023-07-24] MEDS ORDERED: MORPHINE 4 MG/ML 1ML VIAL IV PRN (13:35)
[2023-07-24] MEDS ORDERED: PROMETHAZINE 25MG/ML 1ML VIAL IV PRN (13:35)
[2023-07-24 13:50] LABS: CK-MB VALUE MASS 1.8 NG/ML (<3.6)
[2023-07-24 13:56] LABS: MB/CK RELATIVE INDEX 1.95 (< OR =4)
[2023-07-24] MEDS ORDERED: ONDANSETRON 4MG 2ML VIAL As Ordered ONE (13:59)
[2023-07-24] MEDS ORDERED: METOCLOPRAMIDE INJ 10MG/2ML VIAL IV SCH (14:00)
[2023-07-24] MEDS: NS 1,000 ML IV SCH ×2 (14:00→22:44)
[2023-07-24] MEDS: LEVEMIR (INSULIN DETEMIR) 1 UNITS/0.01ML SC SCH (14:01)
[2023-07-24] MEDS ORDERED: FURO40TA2 PO (14:54)
[2023-07-24] MEDS ORDERED: TADA20TA PO (14:54)
[2023-07-24] MEDS ORDERED: ZOLP10TA2 PO (14:54)
[2023-07-24] MEDS ORDERED: BENG1CRE TOP (14:56)
[2023-07-24 15:02] LABS: VENOUS BASE EXCESS -4.3 (-2.0-2.0); VENOUS HCO3 18.1 MMOL/L (23.0-27.0); VENOUS O2 SATURATION 98.9 % (60.0-80.0); VENOUS PARTIAL PRESSURE O2 149.8 mmHg (30.0-50.0); VENOUS PH 7.443 UNITS (7.330-7.430); VENOUS TOTAL CO2 18.9 MMOL/L (24.0-28.0)
[2023-07-24] MEDS ORDERED: HOME MED LIST COMPLETE! XX SCH (15:05)
[2023-07-24 15:22] LABS: INR 1.1; PROTHROMBIN TIME 13.9 SECONDS (12.5-14.5)
[2023-07-24 15:23] LABS: PARTIAL THROMBOPLASTIN TIME 31.9 SECONDS (24.8-34.2)
[2023-07-24] MEDS: PANTOPRAZOLE 40MG VIAL IV SCH (15:52)
[2023-07-24] MEDS: INSULIN LISPRO (NovoLOG) PER UNIT SC SCH ×2 (17:57→23:49)
[2023-07-24 20:07] VITALS: BP 140/97; TEMP 99.6; O2SAT 97
[2023-07-24] MEDS ORDERED: LEVEMIR (INSULIN DETEMIR) 1 UNITS/0.01ML SC SCH (21:00)
[2023-07-25] VITALS (14 sets, daily range): BP systolic 136–167; BP diastolic 61–93; TEMP 96.9–98.2; O2SAT 94–96
[2023-07-25] MEDS ORDERED: RAMELTEON 8 MG TAB (ROZEREM) PO PRN (00:40)
[2023-07-25] MEDS ORDERED: risperiDONE LONG-ACTING 25MG 2ML INJ IM ONE (00:40)
[2023-07-25] MEDS ORDERED: OLANZapine INTRAMUSCULAR 10MG VIAL IM ONE ×2 (01:00→01:15)
[2023-07-25 05:05] LABS: MEAN CORPUSCULAR HEMOGLOBIN 28.9 pg (27.0-33.0); MEAN CORPUSCULAR HGB CONC 33.3 g/dl (32.0-36.5); MEAN CORPUSCULAR VOLUME 86.8 fl (80.0-96.0); PLATELET COUNT, AUTOMATED 222 10^3/uL (150-450); RED BLOOD COUNT 4.84 10^6/uL (4.30-6.10); WHITE BLOOD COUNT 16.6 10^3/uL (4.0-10.0)
[2023-07-25 05:35] LABS: ALBUMIN 3.3 G/DL (3.2-5.2); BILIRUBIN,TOTAL 0.4 MG/DL (0.3-1.2); CALCIUM LEVEL 9.6 MG/DL (8.3-10.6); CREATININE FOR GFR 1.54 MG/DL (0.70-1.30); GLOMERULAR FILTRATION RATE 47.2 (>42); POTASSIUM SERUM 3.7 MMOL/L (3.5-5.1); TOTAL PROTEIN 7.1 G/DL (5.7-8.2)
[2023-07-25] MEDS: INSULIN LISPRO (NovoLOG) PER UNIT SC SCH ×3 (06:00→20:03)
[2023-07-25] MEDS: NS 1,000 ML IV SCH ×3 (07:24→16:28)
[2023-07-25] MEDS ORDERED: HALOPERIDOL 5MG/ML 1ML VIAL IM STA (07:54)
[2023-07-25] MEDS ORDERED: HALOPERIDOL 5MG/ML 1ML VIAL As Ordered ONE (07:56)
[2023-07-25] MEDS: LEVOTHYROXINE 125MCG TABLET (0.125MG) PO SCH (08:16)
[2023-07-25] MEDS: ASPIRIN 81MG ENTERIC TABLET PO SCH (08:16)
[2023-07-25] MEDS: TAMSULOSIN 0.4 MG CAP PO SCH (08:16)
[2023-07-25] MEDS: GABAPENTIN 300 MG CAP PO SCH ×2 (08:17→20:08)
[2023-07-25] MEDS: METOPROLOL TARTRATE 100MG TAB PO SCH ×3 (08:17→21:31)
[2023-07-25] MEDS: CLOPIDOGREL 75 MG TAB PO SCH (08:17)
[2023-07-25] MEDS: ENOXAPARIN 40MG/0.4ML SYRINGE (J1650 PER 10MG) SC SCH (09:00)
[2023-07-25] MEDS: LEVEMIR (INSULIN DETEMIR) 1 UNITS/0.01ML SC SCH (09:00)
[2023-07-25] MEDS: PANTOPRAZOLE 40MG VIAL IV SCH (10:00)
[2023-07-25] MEDS: hydrALAZINE 20MG/ML 1ML VIAL IV SCH ×3 (11:00→23:00)
[2023-07-25] MEDS ORDERED: METOPROLOL 5 MG/5 ML VIAL IV SCH (12:00)
[2023-07-25] MEDS ORDERED: HALOPERIDOL 5MG/ML 1ML VIAL IV PRN (13:15)
[2023-07-25] MEDS: QUEtiapine FUMARATE 25 MG TAB PO SCH (20:08)
[2023-07-25] MEDS ORDERED: LEVEMIR (INSULIN DETEMIR) 1 UNITS/0.01ML SC SCH (21:00)
[2023-07-26 04:13] VITALS: BP 148/72; TEMP 97.1; O2SAT 95
[2023-07-26] MEDS: hydrALAZINE 20MG/ML 1ML VIAL IV SCH (04:43)
[2023-07-26] MEDS: LEVOTHYROXINE 125MCG TABLET (0.125MG) PO SCH (05:14)
[2023-07-26 05:24] LABS: HEMOGLOBIN 13.5 g/dl (13.5-17.5); MEAN CORPUSCULAR HGB CONC 32.9 g/dl (32.0-36.5); MEAN CORPUSCULAR VOLUME 88.2 fl (80.0-96.0); PLATELET COUNT, AUTOMATED 167 10^3/uL (150-450); RED BLOOD COUNT 4.65 10^6/uL (4.30-6.10); WHITE BLOOD COUNT 9.1 10^3/uL (4.0-10.0)
[2023-07-26 05:58] LABS: ALBUMIN 3.2 G/DL (3.2-5.2); BILIRUBIN,TOTAL 0.5 MG/DL (0.3-1.2); CALCIUM LEVEL 9.2 MG/DL (8.3-10.6); CREATININE FOR GFR 1.31 MG/DL (0.70-1.30); GLOMERULAR FILTRATION RATE 56.9 (>42); POTASSIUM SERUM 4.1 MMOL/L (3.5-5.1); TOTAL PROTEIN 6.7 G/DL (5.7-8.2)
[2023-07-26 08:00] VITALS: BP 169/90; TEMP 98.3; O2SAT 94
[2023-07-26] MEDS: METOPROLOL TARTRATE 100MG TAB PO SCH ×2 (09:15→20:17)
[2023-07-26] MEDS: TAMSULOSIN 0.4 MG CAP PO SCH (09:15)
[2023-07-26] MEDS: ASPIRIN 81MG ENTERIC TABLET PO SCH (09:15)
[2023-07-26] MEDS: GABAPENTIN 300 MG CAP PO SCH ×2 (09:15→20:16)
[2023-07-26] MEDS: CLOPIDOGREL 75 MG TAB PO SCH (09:15)
[2023-07-26] MEDS: PANTOPRAZOLE 40MG VIAL IV SCH (09:16)
[2023-07-26] MEDS: ENOXAPARIN 40MG/0.4ML SYRINGE (J1650 PER 10MG) SC SCH (09:17)
[2023-07-26] MEDS: INSULIN LISPRO (NovoLOG) PER UNIT SC SCH ×4 (09:18→20:09)
[2023-07-26] MEDS: LEVEMIR (INSULIN DETEMIR) 1 UNITS/0.01ML SC SCH ×2 (09:18→20:17)
[2023-07-26] MEDS: METOCLOPRAMIDE 5 MG TAB PO SCH ×2 (12:33→17:34)
[2023-07-26 16:00] VITALS: BP 130/58; TEMP 97.9; O2SAT 97
[2023-07-26 16:30] VITALS: BP 148/80; TEMP 97.7; O2SAT 95
[2023-07-26 20:09] VITALS: BP 141/82; TEMP 97.7; O2SAT 93
[2023-07-26] MEDS: QUEtiapine FUMARATE 25 MG TAB PO SCH (20:16)
[2023-07-26] MEDS: amLODIPine 5 MG TAB PO SCH (20:16)
[2023-07-27] MEDS: LEVOTHYROXINE 125MCG TABLET (0.125MG) PO SCH (05:33)
[2023-07-27 05:34] VITALS: BP 143/73; TEMP 97.5; O2SAT 93
[2023-07-27] MEDS: INSULIN LISPRO (NovoLOG) PER UNIT SC SCH ×2 (08:10→11:54)
[2023-07-27] MEDS: METOCLOPRAMIDE 5 MG TAB PO SCH ×2 (08:18→11:54)
[2023-07-27] MEDS: amLODIPine 5 MG TAB PO SCH (09:00)
[2023-07-27] MEDS ORDERED: LEVEMIR (INSULIN DETEMIR) 1 UNITS/0.01ML SC SCH (09:00)
[2023-07-27] MEDS: GABAPENTIN 300 MG CAP PO SCH (09:54)
[2023-07-27] MEDS: TAMSULOSIN 0.4 MG CAP PO SCH (09:54)
[2023-07-27 09:55] VITALS: BP 130/69
[2023-07-27] MEDS: CLOPIDOGREL 75 MG TAB PO SCH (09:55)
[2023-07-27] MEDS: METOPROLOL TARTRATE 100MG TAB PO SCH (09:55)
[2023-07-27] MEDS: ASPIRIN 81MG ENTERIC TABLET PO SCH (09:55)
[2023-07-27] MEDS: ENOXAPARIN 40MG/0.4ML SYRINGE (J1650 PER 10MG) SC SCH (09:56)
[2023-07-27] MEDS: PANTOPRAZOLE 40MG VIAL IV SCH (09:56)
[2023-07-27] MEDS ORDERED: AMLO1TAB24 PO (13:19)
[2023-07-27] MEDS ORDERED: METO5TAB2 PO (13:19)
[2023-07-27] MEDS ORDERED: QUET1TAB17 PO (13:19)
[2023-07-27] MEDS ORDERED: TOUJ300I2 SC (13:19)
== END 2023-07-27 13:57 | disposition home or self-care (01) | DRG 73 ==
LOC: EDBD 08:46 → M ED 08:46 → M ED INP 13:34 → M ICU 19:57 → M MSPAV 07-26 16:19
PROVIDERS: ADMIT Internal Medicine; ATTEND Internal Medicine Nephrology
DX: E11.43 Type 2 diabetes mellitus with diabetic autonomic (poly)neuropathy (principal); G93.41 Metabolic encephalopathy; I50.32 Chronic diastolic (congestive) heart failure; E87.1 Hypo-osmolality and hyponatremia; N17.9 Acute kidney failure, unspecified; E87.20 Acidosis, unspecified; F03.911 Unspecified dementia, unspecified severity, with agitation; I11.0 Hypertensive heart disease with heart failure; I25.10 Atherosclerotic heart disease of native coronary artery without angina pectoris; N40.0 Benign prostatic hyperplasia without lower urinary tract symptoms; E78.5 Hyperlipidemia, unspecified; G47.33 Obstructive sleep apnea (adult) (pediatric); M10.9 Gout, unspecified; K21.9 Gastro-esophageal reflux disease without esophagitis; K22.70 Barrett's esophagus without dysplasia; K44.9 Diaphragmatic hernia without obstruction or gangrene; D50.9 Iron deficiency anemia, unspecified; E11.65 Type 2 diabetes mellitus with hyperglycemia; K31.84 Gastroparesis; Z87.891 Personal history of nicotine dependence; I16.0 Hypertensive urgency; E86.0 Dehydration; E83.42 Hypomagnesemia; E66.9 Obesity, unspecified; Z68.35 Body mass index [BMI] 35.0-35.9, adult; Z79.82 Long term (current) use of aspirin; Z79.4 Long term (current) use of insulin; Z79.890 Hormone replacement therapy; Z79.899 Other long term (current) drug therapy; Z88.0 Allergy status to penicillin; Z88.1 Allergy status to other antibiotic agents; Z88.2 Allergy status to sulfonamides; Z20.822 Contact with and (suspected) exposure to COVID-19

== ENCOUNTER 2023-08-25 17:59 | Inpatient (IN) | payer MEDICARE, OTHER ==
[~2023-08-25] VITALS: Ht 180.3 cm; Wt 121.8 kg
[~2023-08-25 17:59] MED LIST changes: +AMLO1TAB24 PO; +BENG1CRE TOP; -CEFD300C41 PO; +CEFD300C42 PO; -LUNE3TAB36 PO; +LUNE3TAB50 PO; +QUET1TAB17 PO; +TADA20TA PO
[2023-08-25] MEDS ORDERED: METOCLOPRAMIDE INJ 10MG/2ML VIAL IV ONE ×2 (18:35→21:45)
[2023-08-25 18:57] LABS: BASO % 0.2 % (0.0-1.0); HEMATOCRIT 36.4 % (42.0-52.0); HEMOGLOBIN 12.7 g/dl (13.5-17.5); LYMPH # 0.9 10^3/uL (1.5-5.0); LYMPH % 8.2 % (24.0-44.0); MEAN CORPUSCULAR HGB CONC 34.9 g/dl (32.0-36.5); MEAN CORPUSCULAR VOLUME 85.8 fl (80.0-96.0); MONO # 0.6 10^3/uL (0.0-0.8); MONO % 5.3 % (2.0-8.0); NEUTROPHILS # 9.6 10^3/uL (1.5-8.5); PLATELET COUNT, AUTOMATED 212 10^3/uL (150-450); RED BLOOD COUNT 4.24 10^6/uL (4.30-6.10); WHITE BLOOD COUNT 11.2 10^3/uL (4.0-10.0)
[2023-08-25 19:16] LABS: LIPASE 21 U/L (12-53)
[2023-08-25 19:17] LABS: CK-MB VALUE MASS < 1.0 NG/ML (<3.6)
[2023-08-25 19:18] LABS: ALBUMIN 2.7 G/DL (3.2-5.2); ALKALINE PHOSPHATASE 74 U/L (46-116); ALT/SGPT 13 U/L (7.0-40); AST/SGOT 10 U/L (<34); BILIRUBIN,DIRECT 0.2 MG/DL (<0.4); BILIRUBIN,TOTAL 0.4 MG/DL (0.3-1.2); BLOOD UREA NITROGEN 13 MG/DL (9-23); CALCIUM LEVEL 9.1 MG/DL (8.3-10.6); CARBON DIOXIDE LEVEL 29 MMOL/L (20-31); CHLORIDE LEVEL 100 MMOL/L (98-107); CREATININE FOR GFR 0.89 MG/DL (0.70-1.30); GLOMERULAR FILTRATION RATE > 60.0 (>42); GLUCOSE, FASTING 231 MG/DL (74-106); POTASSIUM SERUM 3.6 MMOL/L (3.5-5.1); SODIUM LEVEL 137 MMOL/L (136-145); TOTAL PROTEIN 6.7 G/DL (5.7-8.2)
[2023-08-25 19:19] LABS: CPK CREATINE PHOSPHOKINASE 31 U/L (46-171); MB/CK RELATIVE INDEX 3.22 (< OR =4)
[2023-08-25] MEDS ORDERED: ISOVUE-370 76% 100ML VIAL As Ordered ONE (19:37)
[2023-08-25] MEDS ORDERED: NS 1,000 ML IV SCH (20:40)
[2023-08-25] MEDS ORDERED: INSULIN LISPRO (NovoLOG) PER UNIT SC SCH (21:00)
[2023-08-25] MEDS: SUCRALFATE 1 GM TAB PO SCH (21:00)
[2023-08-25] MEDS ORDERED: PANTOPRAZOLE 40MG VIAL IV SCH (21:25)
[2023-08-25 21:33] LABS: RSV AMPLIFICATION NEGATIVE (NEGATIVE)
[2023-08-25] MEDS ORDERED: PROMETHAZINE 25MG/ML 1ML VIAL IM ONE (22:00)
[2023-08-25] MEDS ORDERED: SUCRALFATE SUSP 1GM/10ML UD PO ONE (22:00)
[2023-08-25] MEDS ORDERED: TOUJ1.2I SC ×2 (22:07)
[2023-08-25] MEDS ORDERED: QUET1TAB17 PO (22:07)
[2023-08-25] MEDS ORDERED: METO5TAB2 PO (22:07)
[2023-08-25] MEDS ORDERED: NORV5TAB PO (22:07)
[2023-08-25] MEDS ORDERED: PROC5TAB57 PO (22:09)
[2023-08-25] MEDS ORDERED: HOME MED LIST COMPLETE! XX SCH (22:10)
[2023-08-25] MEDS: NS 1,000 ML IV SCH (22:35)
[2023-08-25] MEDS ORDERED: GLUCOSE 4GM CHEW TABLET PO PRN (22:40)
[2023-08-25] MEDS ORDERED: DEXTROSE 50% 50ML SYRINGE IV PRN (22:40)
[2023-08-25] MEDS ORDERED: GLUCAGON INJ 1MG VIAL SC PRN (22:40)
[2023-08-25] MEDS: PANTOPRAZOLE SODIUM 40 MG in D5W MINI-BAG PLUS 50 ML IV SCH (22:59)
[2023-08-25 23:46] VITALS: BP 164/88; TEMP 97.5; O2SAT 96
[2023-08-26] MEDS ORDERED: PROMETHAZINE 25MG/ML 1ML VIAL IV ONE (03:10)
[2023-08-26] MEDS: PANTOPRAZOLE SODIUM 40 MG in D5W MINI-BAG PLUS 50 ML IV SCH ×3 (03:29→08:58)
[2023-08-26 04:03] VITALS: BP 169/81; TEMP 97.9; O2SAT 90
[2023-08-26] MEDS: NS 1,000 ML IV SCH ×2 (06:40→18:52)
[2023-08-26] MEDS ORDERED: INSULIN LISPRO (NovoLOG) PER UNIT SC SCH (07:30)
[2023-08-26] MEDS: INSULIN LISPRO (NovoLOG) PER UNIT SC SCH ×3 (07:33→18:00)
[2023-08-26 07:42] VITALS: BP 158/80; TEMP 98; O2SAT 97
[2023-08-26 07:44] LABS: BASO % 0.3 % (0.0-1.0); EOS % 0.3 % (0.0-3.0); HEMATOCRIT 35.1 % (42.0-52.0); LYMPH % 8.4 % (24.0-44.0); MEAN CORPUSCULAR HEMOGLOBIN 29.6 pg (27.0-33.0); MEAN CORPUSCULAR HGB CONC 34.2 g/dl (32.0-36.5); MEAN CORPUSCULAR VOLUME 86.5 fl (80.0-96.0); MONO # 0.6 10^3/uL (0.0-0.8); MONO % 5.4 % (2.0-8.0); NEUTROPHILS # 9.6 10^3/uL (1.5-8.5); NEUTROPHILS % 85.2 % (36.0-66.0); PLATELET COUNT, AUTOMATED 207 10^3/uL (150-450); RED BLOOD COUNT 4.06 10^6/uL (4.30-6.10); WHITE BLOOD COUNT 11.3 10^3/uL (4.0-10.0)
[2023-08-26] MEDS ORDERED: SCOPOLAMINE 1MG TRANSDERMAL PATCH TOP PRN (08:00)
[2023-08-26 08:13] LABS: BLOOD UREA NITROGEN 14 MG/DL (9-23); CARBON DIOXIDE LEVEL 26 MMOL/L (20-31); CHLORIDE LEVEL 101 MMOL/L (98-107); CREATININE FOR GFR 0.93 MG/DL (0.70-1.30); GLOMERULAR FILTRATION RATE > 60.0 (>42); GLUCOSE, FASTING 199 MG/DL (74-106); POTASSIUM SERUM 3.6 MMOL/L (3.5-5.1); SODIUM LEVEL 137 MMOL/L (136-145)
[2023-08-26] MEDS: PROMETHAZINE 25MG/ML 1ML VIAL IV PRN ×2 (08:58→20:39)
[2023-08-26] MEDS: SUCRALFATE 1 GM TAB PO SCH ×3 (08:58→20:27)
[2023-08-26] MEDS ORDERED: PANTOPRAZOLE 40MG VIAL IV SCH (09:00)
[2023-08-26 12:00] VITALS: BP 180/80; TEMP 98; O2SAT 96
[2023-08-26] MEDS ORDERED: ALBUTEROL 90 MCG/ACT 8GM HFA INHALER INH PRN (12:25)
[2023-08-26] MEDS: LEVOTHYROXINE 125MCG TABLET (0.125MG) PO SCH (12:46)
[2023-08-26] MEDS: amLODIPine 5 MG TAB PO SCH ×2 (12:46→20:26)
[2023-08-26] MEDS: TAMSULOSIN 0.4 MG CAP PO SCH (12:46)
[2023-08-26] MEDS: GABAPENTIN 300 MG CAP PO SCH ×2 (12:46→20:26)
[2023-08-26] MEDS: METOPROLOL TARTRATE 100MG TAB PO SCH ×2 (12:46→20:27)
[2023-08-26] MEDS: cefTRIAXone SOD 2 GM in D5W MINI-BAG PLUS 50 ML IV SCH (14:12)
[2023-08-26] MEDS: metroNIDAZOLE 500 MG in IV 1 EA IV SCH ×2 (15:30→22:57)
[2023-08-26 15:51] VITALS: BP 154/80; TEMP 97.8; O2SAT 95
[2023-08-26 16:18] LABS: HEMOGLOBIN 11.6 g/dl (13.5-17.5); MEAN CORPUSCULAR HEMOGLOBIN 29.7 pg (27.0-33.0); MEAN CORPUSCULAR HGB CONC 34.1 g/dl (32.0-36.5); PLATELET COUNT, AUTOMATED 213 10^3/uL (150-450); RED BLOOD COUNT 3.91 10^6/uL (4.30-6.10); WHITE BLOOD COUNT 11.7 10^3/uL (4.0-10.0)
[2023-08-26 19:36] VITALS: BP 148/80; TEMP 97.6; O2SAT 96
[2023-08-26] MEDS: PANTOPRAZOLE 40MG VIAL IV SCH (20:26)
[2023-08-26 23:08] LABS: HEMATOCRIT 32.9 % (42.0-52.0); HEMOGLOBIN 11.4 g/dl (13.5-17.5); MEAN CORPUSCULAR HEMOGLOBIN 30.2 pg (27.0-33.0); MEAN CORPUSCULAR HGB CONC 34.7 g/dl (32.0-36.5); PLATELET COUNT, AUTOMATED 226 10^3/uL (150-450); RED BLOOD COUNT 3.78 10^6/uL (4.30-6.10); WHITE BLOOD COUNT 11.1 10^3/uL (4.0-10.0)
[2023-08-26 23:46] VITALS: BP 158/80; TEMP 97.4; O2SAT 96
[2023-08-27] MEDS: INSULIN LISPRO (NovoLOG) PER UNIT SC SCH ×4 (00:10→18:11)
[2023-08-27 03:53] VITALS: BP 174/90; TEMP 98.9; O2SAT 94
[2023-08-27] MEDS: metroNIDAZOLE 500 MG in IV 1 EA IV SCH ×3 (06:39→22:45)
[2023-08-27] MEDS: LEVOTHYROXINE 125MCG TABLET (0.125MG) PO SCH (06:39)
[2023-08-27] MEDS: NS 1,000 ML IV SCH ×2 (06:40→18:11)
[2023-08-27 08:00] VITALS: BP 164/88; TEMP 98.9; O2SAT 96
[2023-08-27 08:35] LABS: BLOOD UREA NITROGEN 18 MG/DL (9-23); CALCIUM LEVEL 8.9 MG/DL (8.3-10.6); CARBON DIOXIDE LEVEL 24 MMOL/L (20-31); CHLORIDE LEVEL 105 MMOL/L (98-107); CREATININE FOR GFR 0.91 MG/DL (0.70-1.30); GLOMERULAR FILTRATION RATE > 60.0 (>42); GLUCOSE, FASTING 165 MG/DL (74-106); POTASSIUM SERUM 3.6 MMOL/L (3.5-5.1); SODIUM LEVEL 140 MMOL/L (136-145)
[2023-08-27] MEDS: TAMSULOSIN 0.4 MG CAP PO SCH (09:24)
[2023-08-27] MEDS: amLODIPine 5 MG TAB PO SCH ×2 (09:24→20:48)
[2023-08-27] MEDS: PANTOPRAZOLE 40MG VIAL IV SCH ×2 (09:24→20:48)
[2023-08-27] MEDS: SUCRALFATE 1 GM TAB PO SCH ×4 (09:24→20:48)
[2023-08-27] MEDS: METOPROLOL TARTRATE 100MG TAB PO SCH ×2 (09:24→20:48)
[2023-08-27] MEDS: GABAPENTIN 300 MG CAP PO SCH ×3 (09:25→21:00)
[2023-08-27 09:27] LABS: BASO % 0.3 % (0.0-1.0); EOS # 0.1 10^3/uL (0.0-0.5); EOS % 0.4 % (0.0-3.0); HEMATOCRIT 35.1 % (42.0-52.0); HEMOGLOBIN 12.2 g/dl (13.5-17.5); MEAN CORPUSCULAR HEMOGLOBIN 29.7 pg (27.0-33.0); MEAN CORPUSCULAR HGB CONC 34.8 g/dl (32.0-36.5); MEAN CORPUSCULAR VOLUME 85.4 fl (80.0-96.0); MONO # 0.6 10^3/uL (0.0-0.8); MONO % 5.4 % (2.0-8.0); NEUTROPHILS % 83.4 % (36.0-66.0); PLATELET COUNT, AUTOMATED 209 10^3/uL (150-450); RED BLOOD COUNT 4.11 10^6/uL (4.30-6.10)
[2023-08-27] MEDS ORDERED: PROCHLORPERAZINE 10MG 2ML VIAL IV PRN (11:10)
[2023-08-27] MEDS: PROCHLORPERAZINE 10MG 2ML VIAL IV PRN ×2 (11:58→20:48)
[2023-08-27] MEDS: GASTROGRAFIN SOLUTION 30ML PO SCH ×2 (11:58→12:48)
[2023-08-27] MEDS ORDERED: ISOVUE-370 76% 100ML VIAL As Ordered ONE (12:58)
[2023-08-27] MEDS: cefTRIAXone SOD 2 GM in D5W MINI-BAG PLUS 50 ML IV SCH (13:55)
[2023-08-27] MEDS ORDERED: MORPHINE 4 MG/ML 1ML VIAL IV PRN (14:20)
[2023-08-27 16:00] VITALS: BP 157/74; TEMP 98.6; O2SAT 98
[2023-08-27 19:29] VITALS: BP 152/88; TEMP 98.5; O2SAT 94
[2023-08-28] MEDS: INSULIN LISPRO (NovoLOG) PER UNIT SC SCH ×4 (00:48→18:15)
[2023-08-28 03:14] VITALS: BP 146/90; TEMP 97.6; O2SAT 90
[2023-08-28] MEDS: NS 1,000 ML IV SCH (05:30)
[2023-08-28] MEDS: metroNIDAZOLE 500 MG in IV 1 EA IV SCH ×3 (05:30→22:33)
[2023-08-28] MEDS: LEVOTHYROXINE 125MCG TABLET (0.125MG) PO SCH (05:30)
[2023-08-28 06:47] LABS: BASO % 0.4 % (0.0-1.0); EOS # 0.1 10^3/uL (0.0-0.5); EOS % 0.8 % (0.0-3.0); HEMATOCRIT 35.4 % (42.0-52.0); LYMPH # 1.1 10^3/uL (1.5-5.0); LYMPH % 9.8 % (24.0-44.0); MEAN CORPUSCULAR HEMOGLOBIN 29.3 pg (27.0-33.0); MEAN CORPUSCULAR HGB CONC 33.9 g/dl (32.0-36.5); MEAN CORPUSCULAR VOLUME 86.6 fl (80.0-96.0); MONO # 0.5 10^3/uL (0.0-0.8); MONO % 4.9 % (2.0-8.0); NEUTROPHILS # 9.2 10^3/uL (1.5-8.5); NEUTROPHILS % 83.8 % (36.0-66.0); PLATELET COUNT, AUTOMATED 205 10^3/uL (150-450); RED BLOOD COUNT 4.09 10^6/uL (4.30-6.10)
[2023-08-28 07:08] LABS: BLOOD UREA NITROGEN 18 MG/DL (9-23); CALCIUM LEVEL 8.4 MG/DL (8.3-10.6); CARBON DIOXIDE LEVEL 25 MMOL/L (20-31); CHLORIDE LEVEL 106 MMOL/L (98-107); CREATININE FOR GFR 0.93 MG/DL (0.70-1.30); GLOMERULAR FILTRATION RATE > 60.0 (>42); GLUCOSE, FASTING 154 MG/DL (74-106); POTASSIUM SERUM 3.3 MMOL/L (3.5-5.1); SODIUM LEVEL 138 MMOL/L (136-145)
[2023-08-28 08:12] VITALS: BP 160/78; TEMP 97.8; O2SAT 95
[2023-08-28] MEDS ORDERED: POTASSIUM CHLORIDE 10MEQ SR TABLET PO ONE (09:00)
[2023-08-28] MEDS: GABAPENTIN 300 MG CAP PO SCH ×2 (09:09→20:28)
[2023-08-28] MEDS: SUCRALFATE 1 GM TAB PO SCH ×4 (09:09→20:28)
[2023-08-28] MEDS: TAMSULOSIN 0.4 MG CAP PO SCH (09:09)
[2023-08-28] MEDS: METOPROLOL TARTRATE 100MG TAB PO SCH ×2 (09:09→20:29)
[2023-08-28] MEDS: amLODIPine 5 MG TAB PO SCH ×2 (09:09→20:29)
[2023-08-28] MEDS: PANTOPRAZOLE 40MG VIAL IV SCH ×2 (09:10→20:29)
[2023-08-28] MEDS: MICONAZOLE 2 % POWDER (DESENEX) TOP SCH ×2 (09:10→20:30)
[2023-08-28] MEDS: ASPIRIN 81MG ENTERIC TABLET PO SCH (12:45)
[2023-08-28] MEDS: CLOPIDOGREL 75 MG TAB PO SCH (12:45)
[2023-08-28] MEDS: METOCLOPRAMIDE INJ 10MG/2ML VIAL IV SCH ×2 (12:46→20:28)
[2023-08-28] MEDS: cefTRIAXone SOD 2 GM in D5W MINI-BAG PLUS 50 ML IV SCH (12:47)
[2023-08-28 15:25] VITALS: BP 166/82; TEMP 96.6; O2SAT 97
[2023-08-28 19:29] VITALS: BP 160/86; TEMP 97.8; O2SAT 96
[2023-08-28] MEDS ORDERED: ISOVUE-370 76% 100ML VIAL As Ordered ONE (19:42)
[2023-08-28 21:30] VITALS: BP 160/77; TEMP 97.6; O2SAT 94
[2023-08-29] MEDS: INSULIN LISPRO (NovoLOG) PER UNIT SC SCH ×4 (00:06→17:23)
[2023-08-29] MEDS: METOCLOPRAMIDE INJ 10MG/2ML VIAL IV SCH ×2 (04:23→12:06)
[2023-08-29 06:15] VITALS: BP 168/84; TEMP 98.3; O2SAT 93
[2023-08-29] MEDS: LEVOTHYROXINE 125MCG TABLET (0.125MG) PO SCH (06:24)
[2023-08-29] MEDS: metroNIDAZOLE 500 MG in IV 1 EA IV SCH (06:24)
[2023-08-29 06:43] LABS: BASO % 0.3 % (0.0-1.0); EOS # 0.2 10^3/uL (0.0-0.5); EOS % 2.1 % (0.0-3.0); HEMATOCRIT 34.2 % (42.0-52.0); HEMOGLOBIN 11.6 g/dl (13.5-17.5); LYMPH # 1.3 10^3/uL (1.5-5.0); LYMPH % 12.4 % (24.0-44.0); MEAN CORPUSCULAR HEMOGLOBIN 29.5 pg (27.0-33.0); MEAN CORPUSCULAR HGB CONC 33.9 g/dl (32.0-36.5); MONO # 0.6 10^3/uL (0.0-0.8); MONO % 6.3 % (2.0-8.0); NEUTROPHILS # 7.9 10^3/uL (1.5-8.5); NEUTROPHILS % 78.5 % (36.0-66.0); PLATELET COUNT, AUTOMATED 194 10^3/uL (150-450); RED BLOOD COUNT 3.93 10^6/uL (4.30-6.10); WHITE BLOOD COUNT 10.1 10^3/uL (4.0-10.0)
[2023-08-29 07:03] LABS: BLOOD UREA NITROGEN 15 MG/DL (9-23); CARBON DIOXIDE LEVEL 27 MMOL/L (20-31); CHLORIDE LEVEL 107 MMOL/L (98-107); CREATININE FOR GFR 1.02 MG/DL (0.70-1.30); GLOMERULAR FILTRATION RATE > 60.0 (>42); GLUCOSE, FASTING 141 MG/DL (74-106); POTASSIUM SERUM 3.5 MMOL/L (3.5-5.1); SODIUM LEVEL 140 MMOL/L (136-145)
[2023-08-29] MEDS: MICONAZOLE 2 % POWDER (DESENEX) TOP SCH ×2 (09:00→20:45)
[2023-08-29] MEDS: PANTOPRAZOLE 40MG VIAL IV SCH (11:16)
[2023-08-29] MEDS: SUCRALFATE 1 GM TAB PO SCH ×4 (11:16→20:44)
[2023-08-29] MEDS: ASPIRIN 81MG ENTERIC TABLET PO SCH (11:16)
[2023-08-29] MEDS: GABAPENTIN 300 MG CAP PO SCH ×2 (11:17→20:44)
[2023-08-29] MEDS: TAMSULOSIN 0.4 MG CAP PO SCH (11:17)
[2023-08-29] MEDS: CLOPIDOGREL 75 MG TAB PO SCH (11:17)
[2023-08-29] MEDS: METOPROLOL TARTRATE 100MG TAB PO SCH ×2 (11:21→20:44)
[2023-08-29] MEDS: amLODIPine 5 MG TAB PO SCH ×2 (11:22→20:44)
[2023-08-29 12:19] VITALS: BP 176/86
[2023-08-29 14:19] VITALS: BP 142/66; TEMP 97.6; O2SAT 97
[2023-08-29 16:26] LABS: CHOLESTEROL LEVEL 111 MG/DL (<200); CHOLESTEROL RISK RATIO 3.08 (<5); LDL CHOLESTEROL 55.2 MG/DL (<100); TRIGLYCERIDES LEVEL 99 MG/DL (<150)
[2023-08-29 20:00] VITALS: BP 148/72; TEMP 98.2; O2SAT 94
[2023-08-29] MEDS: PANTOPRAZOLE 40MG TAB (PROTONIX) PO SCH (20:44)
[2023-08-29] MEDS: METOCLOPRAMIDE 10MG TAB PO SCH (21:46)
[2023-08-30] MEDS: INSULIN LISPRO (NovoLOG) PER UNIT SC SCH ×4 (00:11→18:17)
[2023-08-30 06:00] VITALS: BP 140/72; TEMP 97.9; O2SAT 95
[2023-08-30] MEDS: METOCLOPRAMIDE 10MG TAB PO SCH ×4 (06:31→23:58)
[2023-08-30] MEDS: LEVOTHYROXINE 125MCG TABLET (0.125MG) PO SCH (06:31)
[2023-08-30 07:33] LABS: BASO % 0.3 % (0.0-1.0); EOS # 0.3 10^3/uL (0.0-0.5); EOS % 2.8 % (0.0-3.0); HEMATOCRIT 33.8 % (42.0-52.0); HEMOGLOBIN 11.4 g/dl (13.5-17.5); LYMPH # 1.3 10^3/uL (1.5-5.0); LYMPH % 14.9 % (24.0-44.0); MEAN CORPUSCULAR HEMOGLOBIN 29.3 pg (27.0-33.0); MEAN CORPUSCULAR HGB CONC 33.7 g/dl (32.0-36.5); MEAN CORPUSCULAR VOLUME 86.9 fl (80.0-96.0); MONO # 0.6 10^3/uL (0.0-0.8); MONO % 7.2 % (2.0-8.0); NEUTROPHILS # 6.6 10^3/uL (1.5-8.5); NEUTROPHILS % 74.6 % (36.0-66.0); PLATELET COUNT, AUTOMATED 197 10^3/uL (150-450); RED BLOOD COUNT 3.89 10^6/uL (4.30-6.10); WHITE BLOOD COUNT 8.8 10^3/uL (4.0-10.0)
[2023-08-30 07:48] LABS: BLOOD UREA NITROGEN 14 MG/DL (9-23); CALCIUM LEVEL 8.5 MG/DL (8.3-10.6); CARBON DIOXIDE LEVEL 26 MMOL/L (20-31); CHLORIDE LEVEL 104 MMOL/L (98-107); CREATININE FOR GFR 1.07 MG/DL (0.70-1.30); GLOMERULAR FILTRATION RATE > 60.0 (>42); GLUCOSE, FASTING 140 MG/DL (74-106); POTASSIUM SERUM 3.4 MMOL/L (3.5-5.1); SODIUM LEVEL 138 MMOL/L (136-145)
[2023-08-30] MEDS ORDERED: POTASSIUM CHLORIDE 10MEQ SR TABLET PO ONE (08:00)
[2023-08-30] MEDS: CLOPIDOGREL 75 MG TAB PO SCH (09:04)
[2023-08-30] MEDS: ATORVASTATIN 20 MG TAB PO SCH (09:04)
[2023-08-30] MEDS: PANTOPRAZOLE 40MG TAB (PROTONIX) PO SCH ×2 (09:05→20:41)
[2023-08-30] MEDS: SUCRALFATE 1 GM TAB PO SCH ×4 (09:05→20:41)
[2023-08-30] MEDS: amLODIPine 5 MG TAB PO SCH ×2 (09:05→20:41)
[2023-08-30] MEDS: ASPIRIN 81MG ENTERIC TABLET PO SCH (09:05)
[2023-08-30] MEDS: GABAPENTIN 300 MG CAP PO SCH ×2 (09:05→20:41)
[2023-08-30] MEDS: MICONAZOLE 2 % POWDER (DESENEX) TOP SCH ×2 (09:06→20:42)
[2023-08-30] MEDS: TAMSULOSIN 0.4 MG CAP PO SCH (09:06)
[2023-08-30] MEDS: METOPROLOL TARTRATE 100MG TAB PO SCH ×2 (09:06→20:41)
[2023-08-30 09:18] LABS: URIC ACID 4.5 MG/DL (3.7-9.2)
[2023-08-30] MEDS: DICLOFENAC EPOLAMINE 1.3% PATCH TOP SCH ×2 (13:10→20:42)
[2023-08-30 14:00] VITALS: BP 145/66; TEMP 98.2; O2SAT 95
[2023-08-30] MEDS: ENOXAPARIN 40MG/0.4ML SYRINGE (J1650 PER 10MG) SC SCH (15:14)
[2023-08-30 19:16] VITALS: BP 162/80; TEMP 97.3; O2SAT 96
[2023-08-30] MEDS ORDERED: INSULIN LISPRO (NovoLOG) PER UNIT SC SCH (21:00)
[2023-08-31 05:18] VITALS: BP 162/86; TEMP 98.4; O2SAT 95
[2023-08-31] MEDS: METOCLOPRAMIDE 10MG TAB PO SCH ×2 (05:26→12:29)
[2023-08-31] MEDS: LEVOTHYROXINE 125MCG TABLET (0.125MG) PO SCH (05:26)
[2023-08-31 06:49] LABS: BASO % 0.5 % (0.0-1.0); EOS # 0.3 10^3/uL (0.0-0.5); EOS % 3.3 % (0.0-3.0); HEMATOCRIT 34.3 % (42.0-52.0); HEMOGLOBIN 11.5 g/dl (13.5-17.5); LYMPH # 1.3 10^3/uL (1.5-5.0); LYMPH % 17.2 % (24.0-44.0); MEAN CORPUSCULAR HEMOGLOBIN 29.6 pg (27.0-33.0); MEAN CORPUSCULAR HGB CONC 33.5 g/dl (32.0-36.5); MEAN CORPUSCULAR VOLUME 88.2 fl (80.0-96.0); MONO # 0.7 10^3/uL (0.0-0.8); NEUTROPHILS # 5.5 10^3/uL (1.5-8.5); NEUTROPHILS % 69.7 % (36.0-66.0); PLATELET COUNT, AUTOMATED 182 10^3/uL (150-450); RED BLOOD COUNT 3.89 10^6/uL (4.30-6.10); WHITE BLOOD COUNT 7.8 10^3/uL (4.0-10.0)
[2023-08-31 07:23] LABS: BLOOD UREA NITROGEN 12 MG/DL (9-23); CALCIUM LEVEL 8.5 MG/DL (8.3-10.6); CARBON DIOXIDE LEVEL 26 MMOL/L (20-31); CHLORIDE LEVEL 106 MMOL/L (98-107); CREATININE FOR GFR 1.01 MG/DL (0.70-1.30); GLOMERULAR FILTRATION RATE > 60.0 (>42); GLUCOSE, FASTING 161 MG/DL (74-106); MAGNESIUM LEVEL 1.9 MG/DL (1.8-2.4); POTASSIUM SERUM 3.9 MMOL/L (3.5-5.1); SODIUM LEVEL 139 MMOL/L (136-145)
[2023-08-31] MEDS: INSULIN LISPRO (NovoLOG) PER UNIT SC SCH ×2 (08:38→12:30)
[2023-08-31] MEDS: DICLOFENAC EPOLAMINE 1.3% PATCH TOP SCH (08:39)
[2023-08-31] MEDS: ENOXAPARIN 40MG/0.4ML SYRINGE (J1650 PER 10MG) SC SCH (08:39)
[2023-08-31] MEDS: ASPIRIN 81MG ENTERIC TABLET PO SCH (08:40)
[2023-08-31 08:46] VITALS: BP 180/64
[2023-08-31] MEDS: SUCRALFATE 1 GM TAB PO SCH ×2 (08:46→12:29)
[2023-08-31] MEDS: TAMSULOSIN 0.4 MG CAP PO SCH (08:46)
[2023-08-31] MEDS: amLODIPine 5 MG TAB PO SCH (08:46)
[2023-08-31] MEDS: ATORVASTATIN 20 MG TAB PO SCH (08:46)
[2023-08-31] MEDS: METOPROLOL TARTRATE 100MG TAB PO SCH (08:47)
[2023-08-31] MEDS: PANTOPRAZOLE 40MG TAB (PROTONIX) PO SCH (08:47)
[2023-08-31] MEDS: CLOPIDOGREL 75 MG TAB PO SCH (08:47)
[2023-08-31] MEDS: GABAPENTIN 300 MG CAP PO SCH (08:47)
[2023-08-31] MEDS: MICONAZOLE 2 % POWDER (DESENEX) TOP SCH (08:48)
[2023-08-31] MEDS ORDERED: LIDOCAINE 5% (LIDODERM) PATCH TD SCH (09:00)
[2023-08-31] MEDS ORDERED: ATOR1TAB21 PO (12:41)
[2023-08-31] MEDS ORDERED: METO10TA2 PO (12:41)
[2023-08-31] MEDS ORDERED: DICL1PAT6 TOP (12:41)
[2023-08-31] MEDS ORDERED: LIDO5TD TD (12:41)
[2023-08-31] MEDS ORDERED: TRAN1DIS4 TOP (12:41)
== END 2023-08-31 13:30 | DRG 74 ==
LOC: M ED 17:59 → EDBD 17:59 → M ED INP 22:06 → M PCU 23:40 → M MS4PR 08-28 21:25
PROVIDERS: ADMIT Internal Medicine; ATTEND Student in an Organized Health Care Education/Training Program
DX: E11.43 Type 2 diabetes mellitus with diabetic autonomic (poly)neuropathy (principal); D62 Acute posthemorrhagic anemia; I50.32 Chronic diastolic (congestive) heart failure; K31.84 Gastroparesis; K21.9 Gastro-esophageal reflux disease without esophagitis; I11.0 Hypertensive heart disease with heart failure; I25.10 Atherosclerotic heart disease of native coronary artery without angina pectoris; R53.1 Weakness; R25.3 Fasciculation; K22.70 Barrett's esophagus without dysplasia; K57.30 Diverticulosis of large intestine without perforation or abscess without bleeding; K64.8 Other hemorrhoids; E78.5 Hyperlipidemia, unspecified; E89.0 Postprocedural hypothyroidism; G47.33 Obstructive sleep apnea (adult) (pediatric); M10.9 Gout, unspecified; K86.89 Other specified diseases of pancreas; N40.0 Benign prostatic hyperplasia without lower urinary tract symptoms; D50.9 Iron deficiency anemia, unspecified; E11.42 Type 2 diabetes mellitus with diabetic polyneuropathy; I65.21 Occlusion and stenosis of right carotid artery; M17.12 Unilateral primary osteoarthritis, left knee; K02.9 Dental caries, unspecified; Z95.1 Presence of aortocoronary bypass graft; Z87.891 Personal history of nicotine dependence; Z79.4 Long term (current) use of insulin; Z79.890 Hormone replacement therapy; Z79.02 Long term (current) use of antithrombotics/antiplatelets; Z79.82 Long term (current) use of aspirin; Z79.899 Other long term (current) drug therapy; Z88.0 Allergy status to penicillin; Z88.2 Allergy status to sulfonamides; Z88.1 Allergy status to other antibiotic agents; Z88.8 Allergy status to other drugs, medicaments and biological substances

== ENCOUNTER 2023-08-31 13:30 | Inpatient (IN) | payer MEDICARE, OTHER ==
[~2023-08-31] VITALS: Ht 182.9 cm; Wt 120.4 kg
[~2023-08-31 13:30] MED LIST changes: +ATOR1TAB21 PO; +DICL1PAT6 TOP; +LIDO5TD TD; +NORV5TAB PO; +PROC5TAB57 PO; +TOUJ1.2I SC; +TRAN1DIS4 TOP
[2023-08-31 13:46] VITALS: BP 153/68; TEMP 98.2; O2SAT 97
[2023-08-31] MEDS ORDERED: ALBUTEROL 90 MCG/ACT 8GM HFA INHALER INH PRN (14:35)
[2023-08-31] MEDS ORDERED: GLUCAGON INJ 1MG VIAL SC PRN (14:35)
[2023-08-31] MEDS ORDERED: GLUCOSE 4GM CHEW TABLET PO PRN (14:35)
[2023-08-31] MEDS ORDERED: DEXTROSE 50% 50ML SYRINGE IV PRN (14:35)
[2023-08-31] MEDS ORDERED: SCOPOLAMINE 1MG TRANSDERMAL PATCH TOP PRN (14:35)
[2023-08-31] MEDS: INSULIN LISPRO (NovoLOG) PER UNIT SC SCH ×2 (18:20→20:54)
[2023-08-31] MEDS: SUCRALFATE 1 GM TAB PO SCH ×2 (18:20→20:52)
[2023-08-31 20:00] VITALS: BP 158/64; TEMP 97.4; O2SAT 97
[2023-08-31] MEDS: PANTOPRAZOLE 40MG TAB (PROTONIX) PO SCH (20:52)
[2023-08-31] MEDS: METOCLOPRAMIDE 10MG TAB PO SCH (20:52)
[2023-08-31] MEDS: METOPROLOL TARTRATE 100MG TAB PO SCH (20:52)
[2023-08-31] MEDS: amLODIPine 5 MG TAB PO SCH (20:52)
[2023-08-31] MEDS: DICLOFENAC EPOLAMINE 1.3% PATCH TOP SCH (20:53)
[2023-08-31] MEDS: GABAPENTIN 300 MG CAP PO SCH (20:53)
[2023-09-01] MEDS: LEVOTHYROXINE 125MCG TABLET (0.125MG) PO SCH (05:22)
[2023-09-01 06:00] VITALS: BP 141/95; TEMP 97.7; O2SAT 97
[2023-09-01] MEDS ORDERED: ASPIRIN 81MG ENTERIC TABLET PO SCH (09:00)
[2023-09-01] MEDS ORDERED: ENOXAPARIN 40MG/0.4ML SYRINGE (J1650 PER 10MG) SC SCH (09:00)
[2023-09-01] MEDS ORDERED: CLOPIDOGREL 75 MG TAB PO SCH (09:00)
[2023-09-01] MEDS: LEVEMIR (INSULIN DETEMIR) 1 UNITS/0.01ML SC SCH ×2 (09:06→20:58)
[2023-09-01] MEDS: METOCLOPRAMIDE 10MG TAB PO SCH ×3 (09:07→20:57)
[2023-09-01] MEDS: INSULIN LISPRO (NovoLOG) PER UNIT SC SCH ×4 (09:07→20:08)
[2023-09-01] MEDS: TAMSULOSIN 0.4 MG CAP PO SCH (09:07)
[2023-09-01] MEDS: GABAPENTIN 300 MG CAP PO SCH ×2 (09:07→20:57)
[2023-09-01] MEDS: ATORVASTATIN 20 MG TAB PO SCH (09:08)
[2023-09-01] MEDS: SUCRALFATE 1 GM TAB PO SCH ×4 (09:08→20:57)
[2023-09-01] MEDS: amLODIPine 5 MG TAB PO SCH ×2 (09:08→20:56)
[2023-09-01] MEDS: PANTOPRAZOLE 40MG TAB (PROTONIX) PO SCH ×2 (09:08→20:56)
[2023-09-01] MEDS: METOPROLOL TARTRATE 100MG TAB PO SCH ×2 (09:08→20:57)
[2023-09-01] MEDS: LIDOCAINE 5% (LIDODERM) PATCH TD SCH (09:09)
[2023-09-01] MEDS: DICLOFENAC EPOLAMINE 1.3% PATCH TOP SCH ×2 (09:09→20:59)
[2023-09-01 14:00] VITALS: BP 155/77; TEMP 97.6; O2SAT 97
[2023-09-01] MEDS: FLUCONAZOLE 100 MG TAB PO SCH (17:38)
[2023-09-01 20:00] VITALS: BP 158/80; TEMP 98.3; O2SAT 95
[2023-09-01] MEDS: ACETAMINOPHEN TAB 650MG DOSE (2X325MG) PO PRN (20:57)
[2023-09-01] MEDS: MUPIROCIN 2% OINT 22 GM TUBE TOP SCH (20:59)
[2023-09-02] MEDS: LEVOTHYROXINE 125MCG TABLET (0.125MG) PO SCH (05:54)
[2023-09-02 06:00] VITALS: BP 158/68; TEMP 98; O2SAT 95
[2023-09-02] MEDS: INSULIN LISPRO (NovoLOG) PER UNIT SC SCH ×4 (08:02→20:29)
[2023-09-02] MEDS: FLUCONAZOLE 100 MG TAB PO SCH (08:03)
[2023-09-02] MEDS: PANTOPRAZOLE 40MG TAB (PROTONIX) PO SCH ×2 (08:03→20:28)
[2023-09-02] MEDS: SUCRALFATE 1 GM TAB PO SCH ×4 (08:03→20:28)
[2023-09-02] MEDS: LEVEMIR (INSULIN DETEMIR) 1 UNITS/0.01ML SC SCH ×2 (08:03→20:29)
[2023-09-02] MEDS: TAMSULOSIN 0.4 MG CAP PO SCH (08:03)
[2023-09-02] MEDS: LIDOCAINE 5% (LIDODERM) PATCH TD SCH (08:03)
[2023-09-02] MEDS: ATORVASTATIN 20 MG TAB PO SCH (08:03)
[2023-09-02] MEDS: METOCLOPRAMIDE 10MG TAB PO SCH ×3 (08:03→20:28)
[2023-09-02] MEDS: DICLOFENAC EPOLAMINE 1.3% PATCH TOP SCH ×2 (08:03→20:42)
[2023-09-02] MEDS: amLODIPine 5 MG TAB PO SCH ×2 (08:04→20:28)
[2023-09-02] MEDS: METOPROLOL TARTRATE 100MG TAB PO SCH ×2 (08:04→20:28)
[2023-09-02] MEDS: GABAPENTIN 300 MG CAP PO SCH ×2 (08:04→20:29)
[2023-09-02] MEDS: MUPIROCIN 2% OINT 22 GM TUBE TOP SCH ×2 (08:05→22:01)
[2023-09-02] MEDS: ASPIRIN 81MG ENTERIC TABLET PO SCH (12:44)
[2023-09-02] MEDS: CLOPIDOGREL 75 MG TAB PO SCH (12:44)
[2023-09-02] MEDS: ENOXAPARIN 40MG/0.4ML SYRINGE (J1650 PER 10MG) SC SCH (12:45)
[2023-09-02 14:00] VITALS: BP 135/60; TEMP 99.9; O2SAT 95
[2023-09-02 19:20] VITALS: BP 154/82; TEMP 100.3; O2SAT 94
[2023-09-02 20:31] VITALS: TEMP 98.6
[2023-09-03] MEDS: ACETAMINOPHEN TAB 650MG DOSE (2X325MG) PO PRN (04:02)
[2023-09-03 05:27] VITALS: BP 148/76; TEMP 97.3; O2SAT 95
[2023-09-03] MEDS: LEVOTHYROXINE 125MCG TABLET (0.125MG) PO SCH (05:34)
[2023-09-03] MEDS: LEVEMIR (INSULIN DETEMIR) 1 UNITS/0.01ML SC SCH ×2 (08:33→20:09)
[2023-09-03] MEDS: PANTOPRAZOLE 40MG TAB (PROTONIX) PO SCH ×2 (08:33→20:08)
[2023-09-03] MEDS: FLUCONAZOLE 100 MG TAB PO SCH (08:33)
[2023-09-03] MEDS: INSULIN LISPRO (NovoLOG) PER UNIT SC SCH ×4 (08:33→20:53)
[2023-09-03] MEDS: CLOPIDOGREL 75 MG TAB PO SCH (08:33)
[2023-09-03] MEDS: SUCRALFATE 1 GM TAB PO SCH ×4 (08:34→20:09)
[2023-09-03] MEDS: METOCLOPRAMIDE 10MG TAB PO SCH ×3 (08:34→20:08)
[2023-09-03] MEDS: METOPROLOL TARTRATE 100MG TAB PO SCH ×2 (08:34→20:09)
[2023-09-03] MEDS: TAMSULOSIN 0.4 MG CAP PO SCH (08:34)
[2023-09-03] MEDS: ASPIRIN 81MG ENTERIC TABLET PO SCH (08:34)
[2023-09-03] MEDS: amLODIPine 5 MG TAB PO SCH ×2 (08:34→20:09)
[2023-09-03] MEDS: ATORVASTATIN 20 MG TAB PO SCH (08:34)
[2023-09-03] MEDS: ENOXAPARIN 40MG/0.4ML SYRINGE (J1650 PER 10MG) SC SCH (08:34)
[2023-09-03] MEDS: GABAPENTIN 300 MG CAP PO SCH ×2 (08:34→20:08)
[2023-09-03] MEDS: MUPIROCIN 2% OINT 22 GM TUBE TOP SCH ×2 (08:35→20:10)
[2023-09-03] MEDS: DICLOFENAC EPOLAMINE 1.3% PATCH TOP SCH ×2 (08:35→20:53)
[2023-09-03] MEDS: LIDOCAINE 5% (LIDODERM) PATCH TD SCH (08:35)
[2023-09-03] MEDS: METAMUCIL (PSYLLIUM) PACKET PO SCH ×2 (09:50→20:52)
[2023-09-03] MEDS: MIRALAX *UNIT DOSE* 17GM PACKET PO SCH ×2 (09:50→20:53)
[2023-09-03 09:55] VITALS: BP 161/72
[2023-09-03] MEDS: FUROSEMIDE 40 MG TAB PO SCH ×2 (09:55→16:40)
[2023-09-03 14:00] VITALS: BP 159/72; TEMP 97; O2SAT 95
[2023-09-03 20:00] VITALS: BP 156/72; TEMP 97.1; O2SAT 97
[2023-09-03] MEDS ORDERED: QUEtiapine FUMARATE 25 MG TAB PO SCH (21:00)
[2023-09-04] MEDS: LEVOTHYROXINE 125MCG TABLET (0.125MG) PO SCH (05:13)
[2023-09-04 06:00] VITALS: BP 154/84; TEMP 98.4; O2SAT 94
[2023-09-04 06:09] LABS: HEMATOCRIT 31.7 % (42.0-52.0); HEMOGLOBIN 10.5 g/dl (13.5-17.5); MEAN CORPUSCULAR HGB CONC 33.1 g/dl (32.0-36.5); MEAN CORPUSCULAR VOLUME 87.6 fl (80.0-96.0); PLATELET COUNT, AUTOMATED 220 10^3/uL (150-450); RED BLOOD COUNT 3.62 10^6/uL (4.30-6.10)
[2023-09-04] MEDS: LIDOCAINE 5% (LIDODERM) PATCH TD SCH (08:46)
[2023-09-04] MEDS: DICLOFENAC EPOLAMINE 1.3% PATCH TOP SCH ×2 (08:46→20:16)
[2023-09-04] MEDS: INSULIN LISPRO (NovoLOG) PER UNIT SC SCH ×5 (08:47→19:34)
[2023-09-04] MEDS: ENOXAPARIN 40MG/0.4ML SYRINGE (J1650 PER 10MG) SC SCH (08:47)
[2023-09-04] MEDS: GABAPENTIN 300 MG CAP PO SCH ×2 (08:48→20:17)
[2023-09-04] MEDS: SUCRALFATE 1 GM TAB PO SCH ×4 (08:48→20:17)
[2023-09-04] MEDS: ATORVASTATIN 20 MG TAB PO SCH (08:48)
[2023-09-04] MEDS: LEVEMIR (INSULIN DETEMIR) 1 UNITS/0.01ML SC SCH ×2 (08:48→20:17)
[2023-09-04] MEDS: TAMSULOSIN 0.4 MG CAP PO SCH (08:48)
[2023-09-04] MEDS: CLOPIDOGREL 75 MG TAB PO SCH (08:48)
[2023-09-04] MEDS: FLUCONAZOLE 100 MG TAB PO SCH (08:48)
[2023-09-04] MEDS: ASPIRIN 81MG ENTERIC TABLET PO SCH (08:49)
[2023-09-04] MEDS: FUROSEMIDE 40 MG TAB PO SCH ×2 (08:49→17:43)
[2023-09-04] MEDS: MIRALAX *UNIT DOSE* 17GM PACKET PO SCH ×2 (08:49→20:16)
[2023-09-04] MEDS: PANTOPRAZOLE 40MG TAB (PROTONIX) PO SCH ×2 (08:49→20:18)
[2023-09-04] MEDS: METOCLOPRAMIDE 10MG TAB PO SCH ×3 (08:49→20:18)
[2023-09-04] MEDS: amLODIPine 5 MG TAB PO SCH ×2 (08:49→20:18)
[2023-09-04] MEDS: METAMUCIL (PSYLLIUM) PACKET PO SCH ×2 (08:49→20:17)
[2023-09-04] MEDS: METOPROLOL TARTRATE 100MG TAB PO SCH ×2 (08:49→20:18)
[2023-09-04] MEDS: MUPIROCIN 2% OINT 22 GM TUBE TOP SCH ×2 (08:50→20:19)
[2023-09-04 12:28] LABS: CREATININE FOR GFR 1.3 MG/DL (0.7-1.5); GLOMERULAR FILTRATION RATE 57.4 (>42); POTASSIUM SERUM 4.3 MEQ/L (3.6-5.0)
[2023-09-04 12:29] LABS: CALCIUM LEVEL 8.8 MG/DL (8.8-10.2)
[2023-09-04] MEDS ORDERED: BISACODYL 10MG SUPP PR PRN (12:45)
[2023-09-04 14:00] VITALS: BP 160/78; TEMP 98.3; O2SAT 96
[2023-09-04] MEDS: ACETAMINOPHEN TAB 650MG DOSE (2X325MG) PO PRN (14:17)
[2023-09-04 20:00] VITALS: BP 161/83; TEMP 97.4; O2SAT 98
[2023-09-04] MEDS: CelecoXIB (CeleBREX) 100 MG CAP PO SCH (20:18)
[2023-09-05] MEDS: LEVOTHYROXINE 125MCG TABLET (0.125MG) PO SCH (05:14)
[2023-09-05 06:00] VITALS: BP 168/78; TEMP 97.6; O2SAT 93
[2023-09-05] MEDS: LEVEMIR (INSULIN DETEMIR) 1 UNITS/0.01ML SC SCH ×2 (08:15→20:14)
[2023-09-05] MEDS: INSULIN LISPRO (NovoLOG) PER UNIT SC SCH ×7 (08:15→20:17)
[2023-09-05] MEDS: ENOXAPARIN 40MG/0.4ML SYRINGE (J1650 PER 10MG) SC SCH (08:16)
[2023-09-05] MEDS: DICLOFENAC EPOLAMINE 1.3% PATCH TOP SCH ×2 (08:17→20:18)
[2023-09-05] MEDS: LIDOCAINE 5% (LIDODERM) PATCH TD SCH (08:17)
[2023-09-05] MEDS: METAMUCIL (PSYLLIUM) PACKET PO SCH ×2 (08:18→20:17)
[2023-09-05] MEDS: MUPIROCIN 2% OINT 22 GM TUBE TOP SCH ×2 (08:18→20:19)
[2023-09-05] MEDS: MIRALAX *UNIT DOSE* 17GM PACKET PO SCH ×2 (08:18→20:17)
[2023-09-05] MEDS: ATORVASTATIN 20 MG TAB PO SCH (08:19)
[2023-09-05] MEDS: SUCRALFATE 1 GM TAB PO SCH ×4 (08:19→20:16)
[2023-09-05] MEDS: FLUCONAZOLE 100 MG TAB PO SCH (08:19)
[2023-09-05] MEDS: METOCLOPRAMIDE 10MG TAB PO SCH ×3 (08:19→20:15)
[2023-09-05] MEDS: GABAPENTIN 300 MG CAP PO SCH ×2 (08:19→20:14)
[2023-09-05] MEDS: CelecoXIB (CeleBREX) 100 MG CAP PO SCH ×2 (08:19→20:17)
[2023-09-05] MEDS: PANTOPRAZOLE 40MG TAB (PROTONIX) PO SCH ×2 (08:19→20:16)
[2023-09-05] MEDS: TAMSULOSIN 0.4 MG CAP PO SCH (08:19)
[2023-09-05] MEDS: ASPIRIN 81MG ENTERIC TABLET PO SCH (08:19)
[2023-09-05] MEDS: CLOPIDOGREL 75 MG TAB PO SCH (08:19)
[2023-09-05] MEDS: amLODIPine 5 MG TAB PO SCH ×2 (08:20→20:15)
[2023-09-05] MEDS: METOPROLOL TARTRATE 100MG TAB PO SCH ×2 (08:20→20:16)
[2023-09-05] MEDS: FUROSEMIDE 40 MG TAB PO SCH ×2 (08:20→17:34)
[2023-09-05] MEDS: SENOKOT S TAB PO SCH ×2 (09:12→20:16)
[2023-09-05 13:25] VITALS: BP 137/65; TEMP 97.3; O2SAT 97
[2023-09-05] MEDS: BISACODYL 10MG SUPP PR SCH ×2 (14:30→20:18)
[2023-09-05 18:09] LABS: HEMOGLOBIN A1c 7.9 % (4.0-6.0)
[2023-09-05 20:00] VITALS: BP 170/80; TEMP 97.6; O2SAT 97
[2023-09-05] MEDS: VITAMIN D 1,000 INTERNATIONAL UNITS TABLET PO SCH (20:15)
[2023-09-06] MEDS: LEVOTHYROXINE 125MCG TABLET (0.125MG) PO SCH (05:36)
[2023-09-06 06:00] VITALS: BP 10/62; TEMP 96.8; O2SAT 97
[2023-09-06 06:04] VITALS: BP 166/77; TEMP 98.3; O2SAT 93
[2023-09-06] MEDS: LEVEMIR (INSULIN DETEMIR) 1 UNITS/0.01ML SC SCH (08:33)
[2023-09-06] MEDS: ENOXAPARIN 40MG/0.4ML SYRINGE (J1650 PER 10MG) SC SCH (08:33)
[2023-09-06] MEDS: INSULIN LISPRO (NovoLOG) PER UNIT SC SCH ×4 (08:33→12:20)
[2023-09-06] MEDS: FLUCONAZOLE 100 MG TAB PO SCH (08:34)
[2023-09-06] MEDS: GABAPENTIN 300 MG CAP PO SCH (08:34)
[2023-09-06] MEDS: FUROSEMIDE 40 MG TAB PO SCH (08:34)
[2023-09-06] MEDS: PANTOPRAZOLE 40MG TAB (PROTONIX) PO SCH (08:34)
[2023-09-06] MEDS: ATORVASTATIN 20 MG TAB PO SCH (08:34)
[2023-09-06 08:35] VITALS: BP 166/77
[2023-09-06] MEDS: VITAMIN D 1,000 INTERNATIONAL UNITS TABLET PO SCH (08:35)
[2023-09-06] MEDS: CLOPIDOGREL 75 MG TAB PO SCH (08:35)
[2023-09-06] MEDS: METOCLOPRAMIDE 10MG TAB PO SCH (08:35)
[2023-09-06] MEDS: SUCRALFATE 1 GM TAB PO SCH ×2 (08:35→12:17)
[2023-09-06] MEDS: CelecoXIB (CeleBREX) 100 MG CAP PO SCH (08:35)
[2023-09-06] MEDS: METOPROLOL TARTRATE 100MG TAB PO SCH (08:35)
[2023-09-06] MEDS: TAMSULOSIN 0.4 MG CAP PO SCH (08:35)
[2023-09-06] MEDS: ASPIRIN 81MG ENTERIC TABLET PO SCH (08:35)
[2023-09-06] MEDS: SENOKOT S TAB PO SCH (08:35)
[2023-09-06] MEDS: MIRALAX *UNIT DOSE* 17GM PACKET PO SCH (08:36)
[2023-09-06] MEDS: METAMUCIL (PSYLLIUM) PACKET PO SCH (08:36)
[2023-09-06] MEDS: LIDOCAINE 5% (LIDODERM) PATCH TD SCH (08:37)
[2023-09-06] MEDS: BISACODYL 10MG SUPP PR SCH (08:37)
[2023-09-06] MEDS: DICLOFENAC EPOLAMINE 1.3% PATCH TOP SCH (08:37)
[2023-09-06] MEDS: MUPIROCIN 2% OINT 22 GM TUBE TOP SCH (08:37)
[2023-09-06] MEDS ORDERED: VITAD1000T PO (11:21)
[2023-09-06] MEDS ORDERED: TOUJ1.2I SC (11:21)
[2023-09-06] MEDS ORDERED: NORV5TAB PO (11:21)
[2023-09-06] MEDS ORDERED: SUCR1TA PO (11:21)
[2023-09-06] MEDS ORDERED: CELE100C PO (11:21)
[2023-09-06] MEDS ORDERED: PANT-23 PO (11:21)
[2023-09-06] MEDS ORDERED: HUMA100I3 SC (11:21)
[2023-09-08 13:08] LABS: FATS NEUTRAL Normal (.); FATS TOTAL Normal (.); PANCREATIC ELASTASE STOOL 460 (>200)
== END 2023-09-06 13:50 | disposition home or self-care (01) | DRG 74 ==
LOC: M PM&R 13:30
PROVIDERS: ADMIT Student in an Organized Health Care Education/Training Program; ATTEND Student in an Organized Health Care Education/Training Program
PROC: 0S9D3ZZ Drainage of Left Knee Joint, Percutaneous Approach (ICD-10-PCS; principal; 2023-09-04)
DX: E11.43 Type 2 diabetes mellitus with diabetic autonomic (poly)neuropathy (principal); I50.32 Chronic diastolic (congestive) heart failure; K31.84 Gastroparesis; R53.81 Other malaise; I11.0 Hypertensive heart disease with heart failure; E78.5 Hyperlipidemia, unspecified; G47.33 Obstructive sleep apnea (adult) (pediatric); N40.1 Benign prostatic hyperplasia with lower urinary tract symptoms; M10.9 Gout, unspecified; E11.42 Type 2 diabetes mellitus with diabetic polyneuropathy; K21.9 Gastro-esophageal reflux disease without esophagitis; K22.70 Barrett's esophagus without dysplasia; K44.9 Diaphragmatic hernia without obstruction or gangrene; E11.65 Type 2 diabetes mellitus with hyperglycemia; E03.9 Hypothyroidism, unspecified; E66.01 Morbid (severe) obesity due to excess calories; Z68.36 Body mass index [BMI] 36.0-36.9, adult; K64.8 Other hemorrhoids; D50.9 Iron deficiency anemia, unspecified; I65.21 Occlusion and stenosis of right carotid artery; I25.10 Atherosclerotic heart disease of native coronary artery without angina pectoris; B37.2 Candidiasis of skin and nail; R94.31 Abnormal electrocardiogram [ECG] [EKG]; K59.00 Constipation, unspecified; M71.22 Synovial cyst of popliteal space [Baker], left knee; K02.9 Dental caries, unspecified; M25.462 Effusion, left knee; Z74.09 Other reduced mobility; Z74.1 Need for assistance with personal care; M25.562 Pain in left knee; E55.9 Vitamin D deficiency, unspecified; R32 Unspecified urinary incontinence; M17.12 Unilateral primary osteoarthritis, left knee; K57.30 Diverticulosis of large intestine without perforation or abscess without bleeding; Z79.82 Long term (current) use of aspirin; Z79.899 Other long term (current) drug therapy; Z79.02 Long term (current) use of antithrombotics/antiplatelets; Z88.0 Allergy status to penicillin; Z88.1 Allergy status to other antibiotic agents; Z88.2 Allergy status to sulfonamides; Z88.8 Allergy status to other drugs, medicaments and biological substances; Z95.1 Presence of aortocoronary bypass graft; Z79.890 Hormone replacement therapy; Z79.4 Long term (current) use of insulin; Z87.891 Personal history of nicotine dependence

== ENCOUNTER 2023-09-13 13:30 | Observation (INO) | payer MEDICARE, OTHER ==
[~2023-09-13 13:30] MED LIST changes: +CELE100C PO; +SUCR1TA PO; +VITAD1000T PO
[2023-09-13 14:42] LABS: BASO # 0.1 10^3/uL (0.0-0.2); BASO % 0.5 % (0.0-1.0); EOS # 0.1 10^3/uL (0.0-0.5); EOS % 1.1 % (0.0-3.0); HEMATOCRIT 38.5 % (42.0-52.0); LYMPH # 1.1 10^3/uL (1.5-5.0); LYMPH % 12.3 % (24.0-44.0); MEAN CORPUSCULAR HEMOGLOBIN 29.3 pg (27.0-33.0); MEAN CORPUSCULAR HGB CONC 33.8 g/dl (32.0-36.5); MEAN CORPUSCULAR VOLUME 86.9 fl (80.0-96.0); MONO # 0.6 10^3/uL (0.0-0.8); MONO % 6.1 % (2.0-8.0); NEUTROPHILS # 7.4 10^3/uL (1.5-8.5); NEUTROPHILS % 79.8 % (36.0-66.0); PLATELET COUNT, AUTOMATED 287 10^3/uL (150-450); RED BLOOD COUNT 4.43 10^6/uL (4.30-6.10); WHITE BLOOD COUNT 9.2 10^3/uL (4.0-10.0)
[2023-09-13 15:04] LABS: LIPASE 29 U/L (12-53)
[2023-09-13 15:06] LABS: ALBUMIN 2.8 G/DL (3.2-5.2); ALKALINE PHOSPHATASE 79 U/L (46-116); ALT/SGPT 21 U/L (7.0-40); AST/SGOT 29 U/L (<34); BILIRUBIN,DIRECT 0.1 MG/DL (<0.4); BILIRUBIN,TOTAL 0.3 MG/DL (0.3-1.2); BLOOD UREA NITROGEN 18 MG/DL (9-23); CALCIUM LEVEL 9.4 MG/DL (8.3-10.6); CARBON DIOXIDE LEVEL 25 MMOL/L (20-31); CHLORIDE LEVEL 103 MMOL/L (98-107); CREATININE FOR GFR 1.14 MG/DL (0.70-1.30); GLOMERULAR FILTRATION RATE > 60.0 (>42); GLUCOSE, FASTING 105 MG/DL (74-106); POTASSIUM SERUM 4.2 MMOL/L (3.5-5.1); SODIUM LEVEL 138 MMOL/L (136-145); TOTAL PROTEIN 7.2 G/DL (5.7-8.2)
[2023-09-13] MEDS ORDERED: ONDANSETRON 4MG 2ML VIAL IV ONE (15:40)
[2023-09-13] MEDS ORDERED: MORPHINE 4 MG/ML 1ML VIAL IV ONE (15:40)
[2023-09-13] MEDS ORDERED: ISOVUE-370 76% 100ML VIAL As Ordered ONE (15:43)
[2023-09-13] MEDS ORDERED: METOPROLOL TARTRATE 100MG TAB PO ONE (15:45)
[2023-09-13 16:11] LABS: CK-MB VALUE MASS < 1.0 NG/ML (<3.6)
[2023-09-13 16:13] LABS: CPK CREATINE PHOSPHOKINASE 56 U/L (46-171); MB/CK RELATIVE INDEX 1.78 (< OR =4)
[2023-09-13] MEDS ORDERED: GLUCOSE 4GM CHEW TABLET PO PRN (17:30)
[2023-09-13] MEDS ORDERED: DEXTROSE 50% 50ML SYRINGE IV PRN (17:30)
[2023-09-13] MEDS: INSULIN LISPRO (NovoLOG) PER UNIT SC SCH ×2 (17:30→21:00)
[2023-09-13] MEDS ORDERED: GLUCAGON INJ 1MG VIAL SC PRN (17:30)
[2023-09-13] MEDS ORDERED: METOCLOPRAMIDE 10MG TAB PO SCH (17:35)
[2023-09-13] MEDS ORDERED: MORPHINE 2 MG/ML 1ML VIAL IV PRN (17:35)
[2023-09-13] MEDS ORDERED: IPRATROPIUM 0.5MG/ALBUTEROL 2.5MG INH SOL UD 3ML (DUONEB) NEB PRN (17:35)
[2023-09-13] MEDS ORDERED: ACETAMINOPHEN 500 MG TAB PO PRN (17:35)
[2023-09-13] MEDS ORDERED: MED REC IN PROGRESS XX SCH ×2 (17:50→18:10)
[2023-09-13 17:54] LABS: RSV AMPLIFICATION NEGATIVE (NEGATIVE)
[2023-09-13] MEDS: ONDANSETRON 4MG 2ML VIAL IV PRN (18:15)
[2023-09-13] MEDS: IPRATROPIUM 0.5MG/ALBUTEROL 2.5MG INH SOL UD 3ML (DUONEB) NEB SCH (19:24)
[2023-09-13 20:25] VITALS: BP 170/92; TEMP 97.7; O2SAT 95
[2023-09-13] MEDS: LEVEMIR (INSULIN DETEMIR) 1 UNITS/0.01ML SC SCH (21:00)
[2023-09-13] MEDS ORDERED: PANTOPRAZOLE 40MG TAB (PROTONIX) PO SCH (21:00)
[2023-09-13] MEDS ORDERED: QUEtiapine FUMARATE 25 MG TAB PO SCH (21:00)
[2023-09-13] MEDS: KCL 20MEQ IN 0.45NS 1000ML 1,000 ML IV SCH (21:06)
[2023-09-13] MEDS ORDERED: hydrALAZINE 20MG/ML 1ML VIAL IV ONE (21:35)
[2023-09-13] MEDS ORDERED: METO5TAB2 PO (21:36)
[2023-09-13] MEDS ORDERED: ATOR40TA75 PO (21:36)
[2023-09-13] MEDS ORDERED: AMLO1TAB24 PO (21:39)
[2023-09-13] MEDS ORDERED: DICL1PAT6 TD (21:42)
[2023-09-13] MEDS ORDERED: VITA100093 PO (21:46)
[2023-09-13] MEDS ORDERED: TOUJ1.2I SC (21:49)
[2023-09-13] MEDS ORDERED: HUMA100I3 SC (21:53)
[2023-09-13] MEDS ORDERED: METO10TA2 PO (21:55)
[2023-09-13] MEDS ORDERED: PANT40TA29 PO (21:56)
[2023-09-13] MEDS ORDERED: TRAN1DIS4 TOP (21:58)
[2023-09-13] MEDS: TAMSULOSIN 0.4 MG CAP PO SCH (22:00)
[2023-09-13] MEDS ORDERED: SUCR1TA PO (22:00)
[2023-09-13] MEDS: amLODIPine 5 MG TAB PO SCH (22:00)
[2023-09-13] MEDS: GABAPENTIN 300 MG CAP PO SCH (22:00)
[2023-09-13] MEDS ORDERED: LIDO5TD TOP (22:02)
[2023-09-13] MEDS: METOCLOPRAMIDE INJ 10MG/2ML VIAL IV PRN (22:15)
[2023-09-13] MEDS ORDERED: HOME MED LIST COMPLETE! XX SCH (22:20)
[2023-09-14] VITALS (13 sets, daily range): BP systolic 144–190; BP diastolic 3–91; TEMP 97.3–97.9; O2SAT 92–97
[2023-09-14] MEDS: ONDANSETRON 4MG 2ML VIAL IV PRN ×4 (02:27→22:48)
[2023-09-14] MEDS: IPRATROPIUM 0.5MG/ALBUTEROL 2.5MG INH SOL UD 3ML (DUONEB) NEB SCH ×4 (02:57→19:13)
[2023-09-14] MEDS: METOCLOPRAMIDE INJ 10MG/2ML VIAL IV PRN (04:09)
[2023-09-14] MEDS: LEVOTHYROXINE 125MCG TABLET (0.125MG) PO SCH (05:41)
[2023-09-14 06:11] LABS: HEMATOCRIT 37.1 % (42.0-52.0); HEMOGLOBIN 12.2 g/dl (13.5-17.5); MEAN CORPUSCULAR HEMOGLOBIN 28.8 pg (27.0-33.0); MEAN CORPUSCULAR HGB CONC 32.9 g/dl (32.0-36.5); MEAN CORPUSCULAR VOLUME 87.7 fl (80.0-96.0); PLATELET COUNT, AUTOMATED 255 10^3/uL (150-450); RED BLOOD COUNT 4.23 10^6/uL (4.30-6.10); WHITE BLOOD COUNT 8.6 10^3/uL (4.0-10.0)
[2023-09-14 06:41] LABS: BLOOD UREA NITROGEN 18 MG/DL (9-23); CALCIUM LEVEL 9.5 MG/DL (8.3-10.6); CARBON DIOXIDE LEVEL 24 MMOL/L (20-31); CHLORIDE LEVEL 102 MMOL/L (98-107); CREATININE FOR GFR 1.19 MG/DL (0.70-1.30); GLOMERULAR FILTRATION RATE > 60.0 (>42); GLUCOSE, FASTING 122 MG/DL (74-106); POTASSIUM SERUM 3.9 MMOL/L (3.5-5.1); SODIUM LEVEL 137 MMOL/L (136-145)
[2023-09-14] MEDS: KCL 20MEQ IN 0.45NS 1000ML 1,000 ML IV SCH ×2 (06:44→15:18)
[2023-09-14] MEDS ORDERED: **hydrALAZINE HCL** 25 MG TAB PO ONE (07:00)
[2023-09-14] MEDS: INSULIN LISPRO (NovoLOG) PER UNIT SC SCH ×4 (07:30→21:00)
[2023-09-14] MEDS: METOPROLOL TARTRATE 100MG TAB PO SCH ×2 (08:02→22:47)
[2023-09-14] MEDS ORDERED: CLOPIDOGREL 75 MG TAB PO SCH (09:00)
[2023-09-14] MEDS ORDERED: GABAPENTIN 300 MG CAP PO SCH (09:00)
[2023-09-14] MEDS ORDERED: ATORVASTATIN 20 MG TAB PO SCH (09:00)
[2023-09-14] MEDS ORDERED: cloNIDine HCL 0.2 MG/24 HR PATCH TOP SCH (09:00)
[2023-09-14] MEDS ORDERED: cloNIDine HCL 0.1 MG/24 HR PATCH TOP SCH (09:00)
[2023-09-14] MEDS: ASPIRIN 81MG ENTERIC TABLET PO SCH (09:42)
[2023-09-14] MEDS: amLODIPine 5 MG TAB PO SCH ×2 (09:47→22:46)
[2023-09-14] MEDS: ENOXAPARIN 40MG/0.4ML SYRINGE (J1650 PER 10MG) SC SCH (09:47)
[2023-09-14] MEDS: PANTOPRAZOLE 40MG VIAL IV SCH ×2 (09:47→20:56)
[2023-09-14] MEDS: METOCLOPRAMIDE INJ 10MG/2ML VIAL IV SCH ×3 (10:52→20:56)
[2023-09-14] MEDS: TAMSULOSIN 0.4 MG CAP PO SCH (21:00)
[2023-09-14] MEDS: LEVEMIR (INSULIN DETEMIR) 1 UNITS/0.01ML SC SCH (21:00)
[2023-09-14] MEDS: GABAPENTIN 300 MG CAP PO SCH (22:45)
[2023-09-15] MEDS: IPRATROPIUM 0.5MG/ALBUTEROL 2.5MG INH SOL UD 3ML (DUONEB) NEB SCH ×3 (00:54→13:56)
[2023-09-15] MEDS: KCL 20MEQ IN 0.45NS 1000ML 1,000 ML IV SCH ×2 (01:27→11:30)
[2023-09-15 02:00] VITALS: BP 168/78; TEMP 98.1; O2SAT 92
[2023-09-15] MEDS ORDERED: **hydrALAZINE** 10 MG TAB PO ONE (03:00)
[2023-09-15] MEDS: METOCLOPRAMIDE INJ 10MG/2ML VIAL IV SCH ×3 (04:45→15:58)
[2023-09-15] MEDS: LEVOTHYROXINE 125MCG TABLET (0.125MG) PO SCH (04:45)
[2023-09-15 05:24] VITALS: BP 138/60; TEMP 97.4; O2SAT 93
[2023-09-15 06:04] LABS: HEMATOCRIT 30.8 % (42.0-52.0); MEAN CORPUSCULAR HEMOGLOBIN 29.2 pg (27.0-33.0); MEAN CORPUSCULAR HGB CONC 33.1 g/dl (32.0-36.5); MEAN CORPUSCULAR VOLUME 88.3 fl (80.0-96.0); PLATELET COUNT, AUTOMATED 219 10^3/uL (150-450); RED BLOOD COUNT 3.49 10^6/uL (4.30-6.10); WHITE BLOOD COUNT 8.5 10^3/uL (4.0-10.0)
[2023-09-15 06:08] LABS: HEMOGLOBIN 10.2 g/dl (13.5-17.5)
[2023-09-15 06:21] LABS: CALCIUM LEVEL 8.7 MG/DL (8.3-10.6); CREATININE FOR GFR 1.26 MG/DL (0.70-1.30); GLOMERULAR FILTRATION RATE 59.6 (>42); POTASSIUM SERUM 4.2 MMOL/L (3.5-5.1)
[2023-09-15] MEDS: PANTOPRAZOLE 40MG VIAL IV SCH (07:59)
[2023-09-15] MEDS: ENOXAPARIN 40MG/0.4ML SYRINGE (J1650 PER 10MG) SC SCH (08:00)
[2023-09-15] MEDS: INSULIN LISPRO (NovoLOG) PER UNIT SC SCH ×3 (08:00→17:30)
[2023-09-15] MEDS: ASPIRIN 81MG ENTERIC TABLET PO SCH (08:00)
[2023-09-15 08:01] VITALS: BP 148/66
[2023-09-15] MEDS: METOPROLOL TARTRATE 100MG TAB PO SCH (08:01)
[2023-09-15] MEDS: amLODIPine 5 MG TAB PO SCH (08:01)
[2023-09-15] MEDS ORDERED: ONDA4TAB6 SL (10:29)
[2023-09-15] MEDS ORDERED: METO10TA2 PO (10:29)
[2023-09-15] MEDS ORDERED: TOUJ1.2I SC (10:29)
[2023-09-15] MEDS ORDERED: HUMA100I3 SC (10:29)
[2023-09-15 14:00] VITALS: BP 141/65; TEMP 97.7; O2SAT 93
== END 2023-09-15 18:46 | disposition home or self-care (01) ==
LOC: M ED 13:30 → EDBD 13:30 → M ED INP 17:26 → INTOOBSV 17:26 → M MSPAV 20:34
PROVIDERS: ADMIT Family Medicine; ATTEND Internal Medicine Nephrology
DX: K31.84 Gastroparesis (principal); I16.0 Hypertensive urgency; R94.31 Abnormal electrocardiogram [ECG] [EKG]; K21.9 Gastro-esophageal reflux disease without esophagitis; K22.70 Barrett's esophagus without dysplasia; K57.30 Diverticulosis of large intestine without perforation or abscess without bleeding; I25.10 Atherosclerotic heart disease of native coronary artery without angina pectoris; Z95.5 Presence of coronary angioplasty implant and graft; E03.9 Hypothyroidism, unspecified; I65.21 Occlusion and stenosis of right carotid artery; N40.1 Benign prostatic hyperplasia with lower urinary tract symptoms; E11.40 Type 2 diabetes mellitus with diabetic neuropathy, unspecified; K02.9 Dental caries, unspecified; Z88.0 Allergy status to penicillin; Z88.1 Allergy status to other antibiotic agents; Z88.2 Allergy status to sulfonamides; Z79.899 Other long term (current) drug therapy; Z79.82 Long term (current) use of aspirin; Z79.02 Long term (current) use of antithrombotics/antiplatelets; Z79.4 Long term (current) use of insulin; Z87.891 Personal history of nicotine dependence
CPT/HCPCS: 36415; 74177; 80048; 80076; 81001; 82550; 82553; 83605; 83690; 84484; 85025; 85027; 87631; 93005; 93041; 94640; 94760; 96365; 96366; 96372; 96375; 96376; 97161; 97530; 99285; C9113; G0378; J1650; J1815; J2405; J2765; Q9967

== ENCOUNTER 2023-09-19 12:12 | Inpatient (IN) | payer MEDICARE, OTHER ==
[~2023-09-19] VITALS: Ht 182.9 cm; Wt 113.2 kg
[~2023-09-19 12:12] MED LIST changes: +ATOR40TA75 PO; +DICL1PAT6 TD; +LIDO5TD TOP; +ONDA4TAB6 SL; +PANT40TA29 PO; +VITA100093 PO
[2023-09-19] MEDS ORDERED: PANTOPRAZOLE 40MG VIAL IV ONE (15:10)
[2023-09-19] MEDS ORDERED: HALOPERIDOL 5MG/ML 1ML VIAL IV STA (15:27)
[2023-09-19 15:39] LABS: BASO # 0.1 10^3/uL (0.0-0.2); BASO % 0.5 % (0.0-1.0); EOS # 0.1 10^3/uL (0.0-0.5); EOS % 0.8 % (0.0-3.0); HEMATOCRIT 37.4 % (42.0-52.0); HEMOGLOBIN 12.6 g/dl (13.5-17.5); LYMPH # 1.1 10^3/uL (1.5-5.0); LYMPH % 10.9 % (24.0-44.0); MEAN CORPUSCULAR HEMOGLOBIN 29.1 pg (27.0-33.0); MEAN CORPUSCULAR HGB CONC 33.7 g/dl (32.0-36.5); MEAN CORPUSCULAR VOLUME 86.4 fl (80.0-96.0); MONO # 0.7 10^3/uL (0.0-0.8); MONO % 6.6 % (2.0-8.0); NEUTROPHILS % 80.9 % (36.0-66.0); PLATELET COUNT, AUTOMATED 245 10^3/uL (150-450); RED BLOOD COUNT 4.33 10^6/uL (4.30-6.10); WHITE BLOOD COUNT 9.8 10^3/uL (4.0-10.0)
[2023-09-19 16:03] LABS: LIPASE 25 U/L (12-53)
[2023-09-19 16:05] LABS: ALBUMIN 2.7 G/DL (3.2-5.2); ALKALINE PHOSPHATASE 85 U/L (46-116); ALT/SGPT 18 U/L (7.0-40); AST/SGOT 15 U/L (<34); BILIRUBIN,DIRECT 0.2 MG/DL (<0.4); BILIRUBIN,TOTAL 0.5 MG/DL (0.3-1.2); BLOOD UREA NITROGEN 11 MG/DL (9-23); CALCIUM LEVEL 8.9 MG/DL (8.3-10.6); CARBON DIOXIDE LEVEL 24 MMOL/L (20-31); CHLORIDE LEVEL 102 MMOL/L (98-107); CREATININE FOR GFR 1.11 MG/DL (0.70-1.30); GLOMERULAR FILTRATION RATE > 60.0 (>42); GLUCOSE, FASTING 147 MG/DL (74-106); POTASSIUM SERUM 3.4 MMOL/L (3.5-5.1); SODIUM LEVEL 136 MMOL/L (136-145); TOTAL PROTEIN 6.5 G/DL (5.7-8.2)
[2023-09-19 16:09] LABS: RSV AMPLIFICATION NEGATIVE (NEGATIVE)
[2023-09-19] MEDS ORDERED: LIDOCAINE 2% 5ML JELLY UROJET TOP PRN (16:30)
[2023-09-19] MEDS ORDERED: FUROSEMIDE 40 MG TAB PO ONE (18:35)
[2023-09-19] MEDS ORDERED: amLODIPine 5 MG TAB PO ONE (18:35)
[2023-09-19] MEDS ORDERED: METOPROLOL TARTRATE 100MG TAB PO ONE (18:35)
[2023-09-19] MEDS ORDERED: ACETAMINOPHEN TAB 650MG DOSE (2X325MG) PO PRN (20:05)
[2023-09-19] MEDS ORDERED: POTASSIUM CHLORIDE 10% LIQ 20MEQ/15ML UDC PO ONE (20:05)
[2023-09-19 20:15] VITALS: BP 162/96; TEMP 97.4; O2SAT 97
[2023-09-19] MEDS ORDERED: DEXTROSE 50% 50ML SYRINGE IV PRN (20:35)
[2023-09-19] MEDS ORDERED: GLUCAGON INJ 1MG VIAL SC PRN (20:35)
[2023-09-19] MEDS ORDERED: GLUCOSE 4GM CHEW TABLET PO PRN (20:35)
[2023-09-19] MEDS ORDERED: SCOPOLAMINE 1MG TRANSDERMAL PATCH TOP SCH (21:00)
[2023-09-19] MEDS: INSULIN LISPRO (NovoLOG) PER UNIT SC SCH (21:00)
[2023-09-19] MEDS: KCL 10MEQ/100ML SWI (KRUN) 10 MEQ in IV 1 EA IV SCH ×2 (21:38→22:55)
[2023-09-19] MEDS ORDERED: TOUJ1.2I SC (22:41)
[2023-09-19] MEDS ORDERED: ONDA4TAB6 PO (22:41)
[2023-09-19] MEDS ORDERED: METO10TA2 PO (22:41)
[2023-09-19] MEDS ORDERED: INSUHUMDS SC (22:41)
[2023-09-19] MEDS ORDERED: HOME MED LIST COMPLETE! XX SCH (22:45)
[2023-09-20] MEDS: KCL 10MEQ/100ML SWI (KRUN) 10 MEQ in IV 1 EA IV SCH (00:16)
[2023-09-20] MEDS ORDERED: DICLOFENAC EPOLAMINE 1.3% PATCH TD SCH (05:05)
[2023-09-20] MEDS ORDERED: ALBUTEROL 90 MCG/ACT 8GM HFA INHALER INH PRN (05:05)
[2023-09-20] MEDS ORDERED: LIDOCAINE 5% (LIDODERM) PATCH TOP PRN (05:05)
[2023-09-20] MEDS: HEPARIN SOD (PORCINE) 5000UNITS/ML 1ML VIAL/SYRINGE SC SCH ×3 (05:51→21:01)
[2023-09-20] MEDS: LEVOTHYROXINE 125MCG TABLET (0.125MG) PO SCH (05:51)
[2023-09-20] MEDS: METOCLOPRAMIDE INJ 10MG/2ML VIAL IV SCH ×3 (05:51→17:33)
[2023-09-20 06:04] LABS: BLOOD UREA NITROGEN 14 MG/DL (9-23); CALCIUM LEVEL 9.5 MG/DL (8.3-10.6); CARBON DIOXIDE LEVEL 23 MMOL/L (20-31); CHLORIDE LEVEL 103 MMOL/L (98-107); CREATININE FOR GFR 1.13 MG/DL (0.70-1.30); GLOMERULAR FILTRATION RATE > 60.0 (>42); GLUCOSE, FASTING 147 MG/DL (74-106); POTASSIUM SERUM 3.9 MMOL/L (3.5-5.1); SODIUM LEVEL 138 MMOL/L (136-145)
[2023-09-20 06:06] VITALS: BP 158/88; TEMP 97; O2SAT 97
[2023-09-20] MEDS: ONDANSETRON 4MG ORAL DISINTEGRATING TAB PO PRN (07:41)
[2023-09-20] MEDS ORDERED: FUROSEMIDE 40 MG TAB PO SCH (09:00)
[2023-09-20] MEDS ORDERED: ASPIRIN 81MG ENTERIC TABLET PO SCH (09:00)
[2023-09-20] MEDS: INSULIN LISPRO (NovoLOG) PER UNIT SC SCH ×4 (09:00→20:45)
[2023-09-20] MEDS: LEVEMIR (INSULIN DETEMIR) 1 UNITS/0.01ML SC SCH (09:00)
[2023-09-20] MEDS: CLOPIDOGREL 75 MG TAB PO SCH (09:01)
[2023-09-20] MEDS: SUCRALFATE 1 GM TAB PO SCH ×4 (09:01→20:58)
[2023-09-20] MEDS: VITAMIN D 1,000 INTERNATIONAL UNITS TABLET PO SCH ×2 (09:01→20:58)
[2023-09-20] MEDS: ATORVASTATIN 20 MG TAB PO SCH (09:02)
[2023-09-20] MEDS: PANTOPRAZOLE 40MG TAB (PROTONIX) PO SCH ×2 (09:02→20:58)
[2023-09-20] MEDS: TAMSULOSIN 0.4 MG CAP PO SCH (09:02)
[2023-09-20] MEDS: amLODIPine 5 MG TAB PO SCH ×2 (09:07→20:58)
[2023-09-20] MEDS: METOPROLOL TARTRATE 100MG TAB PO SCH ×2 (09:08→20:58)
[2023-09-20] MEDS: DICLOFENAC EPOLAMINE 1.3% PATCH TD SCH ×2 (09:08→20:59)
[2023-09-20 14:23] VITALS: BP 138/78; TEMP 97.1; O2SAT 93
[2023-09-20 20:00] VITALS: BP 137/67; TEMP 97.2; O2SAT 92
[2023-09-20] MEDS: GABAPENTIN 300 MG CAP PO SCH (21:00)
[2023-09-21] MEDS: METOCLOPRAMIDE INJ 10MG/2ML VIAL IV SCH ×4 (00:24→17:37)
[2023-09-21 06:00] VITALS: BP 140/68; TEMP 97.1; O2SAT 94
[2023-09-21] MEDS: LEVOTHYROXINE 125MCG TABLET (0.125MG) PO SCH (06:10)
[2023-09-21] MEDS: HEPARIN SOD (PORCINE) 5000UNITS/ML 1ML VIAL/SYRINGE SC SCH ×3 (06:10→21:34)
[2023-09-21 06:58] LABS: BLOOD UREA NITROGEN 18 MG/DL (9-23); CALCIUM LEVEL 9.3 MG/DL (8.3-10.6); CARBON DIOXIDE LEVEL 27 MMOL/L (20-31); CHLORIDE LEVEL 104 MMOL/L (98-107); CREATININE FOR GFR 1.24 MG/DL (0.70-1.30); GLOMERULAR FILTRATION RATE > 60.0 (>42); GLUCOSE, FASTING 123 MG/DL (74-106); MAGNESIUM LEVEL 1.9 MG/DL (1.8-2.4); POTASSIUM SERUM 3.7 MMOL/L (3.5-5.1); SODIUM LEVEL 139 MMOL/L (136-145)
[2023-09-21] MEDS ORDERED: E-Z-GAS II EFFERVESCENT PACKET (SODIUM BICARB./CITRIC ACID/SIMETHICONE) As Ordered ONE (08:44)
[2023-09-21] MEDS ORDERED: E-Z-PAQUE 96% w/w SUSP 176GM BTL As Ordered ONE (08:44)
[2023-09-21] MEDS ORDERED: E-Z-HD 98% w/w 340GM SUSP BTL As Ordered ONE (08:45)
[2023-09-21] MEDS: DICLOFENAC EPOLAMINE 1.3% PATCH TD SCH ×6 (09:00→21:32)
[2023-09-21] MEDS: INSULIN LISPRO (NovoLOG) PER UNIT SC SCH ×4 (09:23→20:09)
[2023-09-21] MEDS: LEVEMIR (INSULIN DETEMIR) 1 UNITS/0.01ML SC SCH (09:23)
[2023-09-21] MEDS: TAMSULOSIN 0.4 MG CAP PO SCH (09:24)
[2023-09-21] MEDS: ATORVASTATIN 20 MG TAB PO SCH (09:24)
[2023-09-21] MEDS: VITAMIN D 1,000 INTERNATIONAL UNITS TABLET PO SCH ×2 (09:24→21:33)
[2023-09-21] MEDS: SUCRALFATE 1 GM TAB PO SCH ×4 (09:24→19:58)
[2023-09-21] MEDS: PANTOPRAZOLE 40MG TAB (PROTONIX) PO SCH ×2 (09:24→21:33)
[2023-09-21] MEDS: CLOPIDOGREL 75 MG TAB PO SCH (09:24)
[2023-09-21] MEDS: METOPROLOL TARTRATE 100MG TAB PO SCH ×2 (09:30→21:33)
[2023-09-21] MEDS: amLODIPine 5 MG TAB PO SCH ×2 (09:30→21:33)
[2023-09-21 14:00] VITALS: BP 133/67; TEMP 96.9; O2SAT 91
[2023-09-21 20:00] VITALS: BP 169/81; TEMP 97; O2SAT 96
[2023-09-21] MEDS: GABAPENTIN 300 MG CAP PO SCH (21:33)
[2023-09-22] MEDS: METOCLOPRAMIDE INJ 10MG/2ML VIAL IV SCH ×4 (05:58→18:00)
[2023-09-22] MEDS: HEPARIN SOD (PORCINE) 5000UNITS/ML 1ML VIAL/SYRINGE SC SCH ×3 (05:59→21:07)
[2023-09-22] MEDS: LEVOTHYROXINE 125MCG TABLET (0.125MG) PO SCH (05:59)
[2023-09-22 06:00] VITALS: BP 148/70; TEMP 97.4; O2SAT 93
[2023-09-22 06:16] LABS: BLOOD UREA NITROGEN 17 MG/DL (9-23); CALCIUM LEVEL 8.7 MG/DL (8.3-10.6); CARBON DIOXIDE LEVEL 25 MMOL/L (20-31); CHLORIDE LEVEL 104 MMOL/L (98-107); GLOMERULAR FILTRATION RATE > 60.0 (>42); GLUCOSE, FASTING 147 MG/DL (74-106); MAGNESIUM LEVEL 1.8 MG/DL (1.8-2.4); POTASSIUM SERUM 3.6 MMOL/L (3.5-5.1); SODIUM LEVEL 138 MMOL/L (136-145)
[2023-09-22] MEDS: LEVEMIR (INSULIN DETEMIR) 1 UNITS/0.01ML SC SCH (08:18)
[2023-09-22] MEDS: ONDANSETRON 4MG ORAL DISINTEGRATING TAB PO PRN ×3 (08:18→21:04)
[2023-09-22] MEDS: INSULIN LISPRO (NovoLOG) PER UNIT SC SCH ×4 (08:18→21:00)
[2023-09-22] MEDS: METOPROLOL TARTRATE 100MG TAB PO SCH ×2 (09:50→21:06)
[2023-09-22] MEDS: CLOPIDOGREL 75 MG TAB PO SCH (09:50)
[2023-09-22] MEDS: amLODIPine 5 MG TAB PO SCH ×2 (09:50→21:05)
[2023-09-22] MEDS: VITAMIN D 1,000 INTERNATIONAL UNITS TABLET PO SCH ×2 (11:00→21:07)
[2023-09-22] MEDS: SUCRALFATE 1 GM TAB PO SCH ×4 (11:00→21:04)
[2023-09-22] MEDS: TAMSULOSIN 0.4 MG CAP PO SCH (11:01)
[2023-09-22] MEDS: PANTOPRAZOLE 40MG TAB (PROTONIX) PO SCH ×2 (11:01→21:04)
[2023-09-22] MEDS: DICLOFENAC EPOLAMINE 1.3% PATCH TD SCH ×2 (11:01→21:00)
[2023-09-22] MEDS: ATORVASTATIN 20 MG TAB PO SCH (11:01)
[2023-09-22 11:45] VITALS: BP 134/60; TEMP 98.4; O2SAT 94
[2023-09-22 14:00] VITALS: BP 136/60; TEMP 98.8; O2SAT 94
[2023-09-22] MEDS: GABAPENTIN 300 MG CAP PO SCH ×2 (21:00→21:05)
[2023-09-22 21:41] VITALS: BP 136/60; TEMP 97.6; O2SAT 92
[2023-09-23] MEDS: METOCLOPRAMIDE INJ 10MG/2ML VIAL IV SCH ×4 (00:29→17:41)
[2023-09-23] MEDS: GABAPENTIN 300 MG CAP PO SCH ×2 (00:36→20:22)
[2023-09-23 05:03] VITALS: BP 138/60; TEMP 97.8; O2SAT 93
[2023-09-23] MEDS: LEVOTHYROXINE 125MCG TABLET (0.125MG) PO SCH (06:12)
[2023-09-23] MEDS: HEPARIN SOD (PORCINE) 5000UNITS/ML 1ML VIAL/SYRINGE SC SCH ×3 (06:13→20:21)
[2023-09-23 06:44] LABS: BLOOD UREA NITROGEN 13 MG/DL (9-23); CALCIUM LEVEL 9.1 MG/DL (8.3-10.6); CARBON DIOXIDE LEVEL 26 MMOL/L (20-31); CHLORIDE LEVEL 105 MMOL/L (98-107); CREATININE FOR GFR 1.19 MG/DL (0.70-1.30); GLOMERULAR FILTRATION RATE > 60.0 (>42); GLUCOSE, FASTING 102 MG/DL (74-106); MAGNESIUM LEVEL 1.8 MG/DL (1.8-2.4); POTASSIUM SERUM 3.5 MMOL/L (3.5-5.1); SODIUM LEVEL 140 MMOL/L (136-145)
[2023-09-23 08:13] LABS: HEMATOCRIT 33.2 % (42.0-52.0); HEMOGLOBIN 10.9 g/dl (13.5-17.5); MEAN CORPUSCULAR HEMOGLOBIN 29.1 pg (27.0-33.0); MEAN CORPUSCULAR HGB CONC 32.8 g/dl (32.0-36.5); MEAN CORPUSCULAR VOLUME 88.8 fl (80.0-96.0); PLATELET COUNT, AUTOMATED 183 10^3/uL (150-450); RED BLOOD COUNT 3.74 10^6/uL (4.30-6.10); WHITE BLOOD COUNT 7.1 10^3/uL (4.0-10.0)
[2023-09-23] MEDS: DICLOFENAC EPOLAMINE 1.3% PATCH TD SCH ×2 (09:00→19:26)
[2023-09-23] MEDS: ATORVASTATIN 20 MG TAB PO SCH (09:00)
[2023-09-23] MEDS: LEVEMIR (INSULIN DETEMIR) 1 UNITS/0.01ML SC SCH (09:13)
[2023-09-23] MEDS: INSULIN LISPRO (NovoLOG) PER UNIT SC SCH ×4 (09:13→21:00)
[2023-09-23] MEDS: METOPROLOL TARTRATE 100MG TAB PO SCH ×2 (09:14→20:23)
[2023-09-23] MEDS: SUCRALFATE 1 GM TAB PO SCH ×4 (09:14→20:22)
[2023-09-23] MEDS: TAMSULOSIN 0.4 MG CAP PO SCH (09:14)
[2023-09-23] MEDS: PANTOPRAZOLE 40MG TAB (PROTONIX) PO SCH ×2 (09:14→20:22)
[2023-09-23] MEDS: amLODIPine 5 MG TAB PO SCH ×2 (09:14→20:23)
[2023-09-23] MEDS: VITAMIN D 1,000 INTERNATIONAL UNITS TABLET PO SCH ×2 (09:14→20:21)
[2023-09-23] MEDS: CLOPIDOGREL 75 MG TAB PO SCH (09:14)
[2023-09-23] MEDS ORDERED: ISOVUE-370 76% 100ML VIAL As Ordered ONE (09:54)
[2023-09-23 13:49] VITALS: BP 136/68; TEMP 97.3; O2SAT 94
[2023-09-23 22:00] VITALS: BP 149/67; TEMP 99.6; O2SAT 94
[2023-09-24] MEDS: METOCLOPRAMIDE INJ 10MG/2ML VIAL IV SCH ×4 (00:21→17:42)
[2023-09-24] MEDS ORDERED: ISOVUE-370 76% 100ML VIAL As Ordered ONE ×2 (05:30→13:39)
[2023-09-24 05:40] VITALS: BP 165/80; TEMP 98.9; O2SAT 93
[2023-09-24] MEDS: HEPARIN SOD (PORCINE) 5000UNITS/ML 1ML VIAL/SYRINGE SC SCH ×3 (05:53→21:04)
[2023-09-24] MEDS: LEVOTHYROXINE 125MCG TABLET (0.125MG) PO SCH (05:53)
[2023-09-24 06:47] LABS: BLOOD UREA NITROGEN 15 MG/DL (9-23); CALCIUM LEVEL 8.9 MG/DL (8.3-10.6); CARBON DIOXIDE LEVEL 25 MMOL/L (20-31); CHLORIDE LEVEL 103 MMOL/L (98-107); CREATININE FOR GFR 1.24 MG/DL (0.70-1.30); GLOMERULAR FILTRATION RATE > 60.0 (>42); GLUCOSE, FASTING 130 MG/DL (74-106); MAGNESIUM LEVEL 1.8 MG/DL (1.8-2.4); POTASSIUM SERUM 3.8 MMOL/L (3.5-5.1); SODIUM LEVEL 137 MMOL/L (136-145)
[2023-09-24] MEDS: TAMSULOSIN 0.4 MG CAP PO SCH (08:10)
[2023-09-24] MEDS: CLOPIDOGREL 75 MG TAB PO SCH (08:10)
[2023-09-24] MEDS: PANTOPRAZOLE 40MG TAB (PROTONIX) PO SCH ×2 (08:10→21:04)
[2023-09-24] MEDS: VITAMIN D 1,000 INTERNATIONAL UNITS TABLET PO SCH ×2 (08:10→20:59)
[2023-09-24] MEDS: LEVEMIR (INSULIN DETEMIR) 1 UNITS/0.01ML SC SCH (08:10)
[2023-09-24] MEDS: INSULIN LISPRO (NovoLOG) PER UNIT SC SCH ×4 (08:10→20:58)
[2023-09-24] MEDS: SUCRALFATE 1 GM TAB PO SCH ×4 (08:10→21:02)
[2023-09-24] MEDS: METOPROLOL TARTRATE 100MG TAB PO SCH ×2 (08:10→21:04)
[2023-09-24] MEDS: amLODIPine 5 MG TAB PO SCH ×2 (08:10→21:03)
[2023-09-24] MEDS: ATORVASTATIN 20 MG TAB PO SCH (08:11)
[2023-09-24] MEDS: DICLOFENAC EPOLAMINE 1.3% PATCH TD SCH ×2 (08:11→20:58)
[2023-09-24 14:48] VITALS: BP 126/53; TEMP 97.7; O2SAT 95
[2023-09-24 20:00] VITALS: BP 144/79; TEMP 98.6; O2SAT 20
[2023-09-24] MEDS: GABAPENTIN 300 MG CAP PO SCH (21:02)
[2023-09-25] MEDS: METOCLOPRAMIDE INJ 10MG/2ML VIAL IV SCH ×2 (00:02→05:43)
[2023-09-25] MEDS: LEVOTHYROXINE 125MCG TABLET (0.125MG) PO SCH (05:43)
[2023-09-25] MEDS: HEPARIN SOD (PORCINE) 5000UNITS/ML 1ML VIAL/SYRINGE SC SCH ×3 (05:43→21:04)
[2023-09-25 06:00] VITALS: BP 145/76; TEMP 98.6; O2SAT 92
[2023-09-25 07:07] LABS: BLOOD UREA NITROGEN 10 MG/DL (9-23); CALCIUM LEVEL 8.9 MG/DL (8.3-10.6); CARBON DIOXIDE LEVEL 25 MMOL/L (20-31); CHLORIDE LEVEL 105 MMOL/L (98-107); CREATININE FOR GFR 1.18 MG/DL (0.70-1.30); GLOMERULAR FILTRATION RATE > 60.0 (>42); GLUCOSE, FASTING 160 MG/DL (74-106); MAGNESIUM LEVEL 1.7 MG/DL (1.8-2.4); POTASSIUM SERUM 3.7 MMOL/L (3.5-5.1); SODIUM LEVEL 139 MMOL/L (136-145)
[2023-09-25] MEDS: INSULIN LISPRO (NovoLOG) PER UNIT SC SCH ×4 (07:30→20:23)
[2023-09-25] MEDS: DICLOFENAC EPOLAMINE 1.3% PATCH TD SCH ×2 (09:00→20:23)
[2023-09-25] MEDS: ATORVASTATIN 20 MG TAB PO SCH ×2 (09:00→10:48)
[2023-09-25] MEDS ORDERED: MAG SULF 1GM/100ML (MAG RUN) 1 GM in IV 1 EA IV ONE (10:00)
[2023-09-25] MEDS: VITAMIN D 1,000 INTERNATIONAL UNITS TABLET PO SCH ×2 (10:47→20:30)
[2023-09-25] MEDS: PANTOPRAZOLE 40MG TAB (PROTONIX) PO SCH ×2 (10:47→20:29)
[2023-09-25] MEDS: CLOPIDOGREL 75 MG TAB PO SCH (10:47)
[2023-09-25] MEDS: TAMSULOSIN 0.4 MG CAP PO SCH (10:48)
[2023-09-25] MEDS: LEVEMIR (INSULIN DETEMIR) 1 UNITS/0.01ML SC SCH (10:48)
[2023-09-25] MEDS: ONDANSETRON 4MG ORAL DISINTEGRATING TAB PO PRN (10:48)
[2023-09-25] MEDS: SUCRALFATE 1 GM TAB PO SCH ×4 (10:48→20:30)
[2023-09-25] MEDS: amLODIPine 5 MG TAB PO SCH ×2 (10:51→20:31)
[2023-09-25] MEDS: METOPROLOL TARTRATE 100MG TAB PO SCH ×2 (10:52→20:30)
[2023-09-25 14:00] VITALS: BP 148/75; TEMP 98.4; O2SAT 94
[2023-09-25] MEDS: METOCLOPRAMIDE 10MG TAB PO SCH ×3 (14:18→20:29)
[2023-09-25 19:58] VITALS: BP 162/84; TEMP 98.6; O2SAT 94
[2023-09-25] MEDS: GABAPENTIN 300 MG CAP PO SCH (20:29)
[2023-09-26 05:24] VITALS: BP 150/77; TEMP 97.9; O2SAT 93
[2023-09-26] MEDS: LEVOTHYROXINE 125MCG TABLET (0.125MG) PO SCH (05:31)
[2023-09-26] MEDS: HEPARIN SOD (PORCINE) 5000UNITS/ML 1ML VIAL/SYRINGE SC SCH ×3 (05:31→21:20)
[2023-09-26 06:28] LABS: BLOOD UREA NITROGEN 9 MG/DL (9-23); CARBON DIOXIDE LEVEL 28 MMOL/L (20-31); CHLORIDE LEVEL 102 MMOL/L (98-107); CREATININE FOR GFR 1.08 MG/DL (0.70-1.30); GLOMERULAR FILTRATION RATE > 60.0 (>42); GLUCOSE, FASTING 152 MG/DL (74-106); MAGNESIUM LEVEL 1.8 MG/DL (1.8-2.4); POTASSIUM SERUM 3.9 MMOL/L (3.5-5.1); SODIUM LEVEL 136 MMOL/L (136-145)
[2023-09-26] MEDS: INSULIN LISPRO (NovoLOG) PER UNIT SC SCH ×4 (08:24→21:00)
[2023-09-26] MEDS: LEVEMIR (INSULIN DETEMIR) 1 UNITS/0.01ML SC SCH (08:25)
[2023-09-26] MEDS: ATORVASTATIN 20 MG TAB PO SCH (08:25)
[2023-09-26] MEDS: VITAMIN D 1,000 INTERNATIONAL UNITS TABLET PO SCH ×2 (08:25→21:21)
[2023-09-26] MEDS: TAMSULOSIN 0.4 MG CAP PO SCH (08:25)
[2023-09-26] MEDS: SUCRALFATE 1 GM TAB PO SCH ×4 (08:25→21:20)
[2023-09-26] MEDS: CLOPIDOGREL 75 MG TAB PO SCH (08:25)
[2023-09-26] MEDS: METOCLOPRAMIDE 10MG TAB PO SCH ×4 (08:25→21:19)
[2023-09-26] MEDS: PANTOPRAZOLE 40MG TAB (PROTONIX) PO SCH ×2 (08:25→21:21)
[2023-09-26] MEDS: amLODIPine 5 MG TAB PO SCH ×2 (08:26→21:20)
[2023-09-26] MEDS: METOPROLOL TARTRATE 100MG TAB PO SCH ×2 (08:26→21:20)
[2023-09-26] MEDS: DICLOFENAC EPOLAMINE 1.3% PATCH TD SCH ×3 (08:27→21:33)
[2023-09-26] MEDS ORDERED: METO10TA2 PO (11:39)
[2023-09-26 14:00] VITALS: BP 126/68; TEMP 97.7; O2SAT 95
[2023-09-26] MEDS ORDERED: SENO8.6T5 PO (19:02)
[2023-09-26] MEDS ORDERED: THIA100T7 PO (19:03)
[2023-09-26] MEDS ORDERED: FOLI1TAB11 PO (19:03)
[2023-09-26] MEDS ORDERED: MIRA3350 PO (19:03)
[2023-09-26] MEDS ORDERED: MOM 30ML SUSPENSION UDC PO ONE (19:05)
[2023-09-26] MEDS ORDERED: SENOKOT S TAB PO ONE (19:05)
[2023-09-26] MEDS ORDERED: MIRALAX *UNIT DOSE* 17GM PACKET PO ONE (19:05)
[2023-09-26] MEDS ORDERED: POLYETHYLENE GLYCOL (MIRALAX) 238GM BOTTLE PO ONE (20:00)
[2023-09-26 20:15] VITALS: BP 150/70; TEMP 98.1; O2SAT 95
[2023-09-26] MEDS: GABAPENTIN 300 MG CAP PO SCH (21:21)
[2023-09-27 05:25] VITALS: BP 132/61; TEMP 98.4; O2SAT 95
[2023-09-27] MEDS: HEPARIN SOD (PORCINE) 5000UNITS/ML 1ML VIAL/SYRINGE SC SCH ×2 (05:25→13:03)
[2023-09-27] MEDS: LEVOTHYROXINE 125MCG TABLET (0.125MG) PO SCH (05:25)
[2023-09-27 06:22] LABS: BLOOD UREA NITROGEN 11 MG/DL (9-23); CARBON DIOXIDE LEVEL 28 MMOL/L (20-31); CHLORIDE LEVEL 102 MMOL/L (98-107); CREATININE FOR GFR 1.13 MG/DL (0.70-1.30); GLOMERULAR FILTRATION RATE > 60.0 (>42); GLUCOSE, FASTING 157 MG/DL (74-106); POTASSIUM SERUM 4.1 MMOL/L (3.5-5.1); SODIUM LEVEL 136 MMOL/L (136-145)
[2023-09-27] MEDS: LEVEMIR (INSULIN DETEMIR) 1 UNITS/0.01ML SC SCH (08:55)
[2023-09-27] MEDS: INSULIN LISPRO (NovoLOG) PER UNIT SC SCH ×2 (08:56→12:19)
[2023-09-27] MEDS: VITAMIN D 1,000 INTERNATIONAL UNITS TABLET PO SCH (08:56)
[2023-09-27 08:57] VITALS: BP 114/63
[2023-09-27] MEDS: METOPROLOL TARTRATE 100MG TAB PO SCH (08:57)
[2023-09-27] MEDS: PANTOPRAZOLE 40MG TAB (PROTONIX) PO SCH (08:57)
[2023-09-27] MEDS: METOCLOPRAMIDE 10MG TAB PO SCH ×2 (08:57→12:19)
[2023-09-27] MEDS: CLOPIDOGREL 75 MG TAB PO SCH (08:57)
[2023-09-27] MEDS: amLODIPine 5 MG TAB PO SCH (08:57)
[2023-09-27] MEDS: SUCRALFATE 1 GM TAB PO SCH ×2 (08:57→13:03)
[2023-09-27] MEDS: TAMSULOSIN 0.4 MG CAP PO SCH (08:57)
[2023-09-27] MEDS: ATORVASTATIN 20 MG TAB PO SCH (08:58)
[2023-09-27] MEDS ORDERED: MIRALAX *UNIT DOSE* 17GM PACKET PO ONE (09:00)
[2023-09-27] MEDS ORDERED: SENOKOT S TAB PO ONE (09:00)
[2023-09-27] MEDS ORDERED: FLEET ENEMA PR ONE (09:00)
[2023-09-27] MEDS ORDERED: MOM 30ML SUSPENSION UDC PO ONE (09:00)
== END 2023-09-27 14:23 | disposition home or self-care (01) | DRG 74 ==
LOC: EDBD 12:12 → M ED 12:12 → M ED INP 19:13 → M MS4PR 20:08 → M MSPAV 09-22 11:47
PROVIDERS: ADMIT Internal Medicine; ATTEND General Practice
DX: E11.43 Type 2 diabetes mellitus with diabetic autonomic (poly)neuropathy (principal); I50.32 Chronic diastolic (congestive) heart failure; K31.84 Gastroparesis; K21.9 Gastro-esophageal reflux disease without esophagitis; E11.42 Type 2 diabetes mellitus with diabetic polyneuropathy; D50.9 Iron deficiency anemia, unspecified; I25.10 Atherosclerotic heart disease of native coronary artery without angina pectoris; K22.70 Barrett's esophagus without dysplasia; K59.00 Constipation, unspecified; K57.30 Diverticulosis of large intestine without perforation or abscess without bleeding; K64.8 Other hemorrhoids; I11.0 Hypertensive heart disease with heart failure; E89.0 Postprocedural hypothyroidism; R94.31 Abnormal electrocardiogram [ECG] [EKG]; I65.21 Occlusion and stenosis of right carotid artery; Z79.4 Long term (current) use of insulin; Z79.890 Hormone replacement therapy; Z79.02 Long term (current) use of antithrombotics/antiplatelets; Z79.899 Other long term (current) drug therapy; Z88.0 Allergy status to penicillin; Z88.1 Allergy status to other antibiotic agents; Z88.2 Allergy status to sulfonamides; Z88.8 Allergy status to other drugs, medicaments and biological substances; E87.6 Hypokalemia; N40.1 Benign prostatic hyperplasia with lower urinary tract symptoms; E78.5 Hyperlipidemia, unspecified

== ENCOUNTER 2023-11-05 09:20 | Observation (INO) | payer MEDICARE, OTHER ==
[~2023-11-05] VITALS: Ht 182.9 cm; Wt 108.5 kg
[~2023-11-05 09:20] MED LIST changes: -ASPI-161 PO; +ASPI-615 PO; +CEFD1CAP9 PO; -CEFD300C42 PO; -FLUT50SP17 NARES; +FLUTISP NARES; +FOLI1TAB11 PO; +IRBE150T27 PO; -IRBE150T7 PO; -MIRA1POW3 PO; +MIRA3350 PO; +MIRA33506 PO; +SENO8.6T5 PO; +THIA100T7 PO
[2023-11-05] MEDS: NS 1,000 ML IV SCH (10:07)
[2023-11-05] MEDS: NS 500 ML IV ONE ×2 (10:09→10:57)
[2023-11-05 10:24] LABS: BASO % 0.2 % (0.0-1.0); EOS # 0.1 10^3/uL (0.0-0.5); EOS % 0.6 % (0.0-3.0); HEMATOCRIT 39.4 % (42.0-52.0); HEMOGLOBIN 13.2 g/dl (13.5-17.5); LYMPH # 1.4 10^3/uL (1.5-5.0); LYMPH % 14.7 % (24.0-44.0); MEAN CORPUSCULAR HEMOGLOBIN 28.9 pg (27.0-33.0); MEAN CORPUSCULAR HGB CONC 33.5 g/dl (32.0-36.5); MEAN CORPUSCULAR VOLUME 86.2 fl (80.0-96.0); MONO # 0.6 10^3/uL (0.0-0.8); MONO % 6.4 % (2.0-8.0); NEUTROPHILS # 7.4 10^3/uL (1.5-8.5); NEUTROPHILS % 77.6 % (36.0-66.0); PLATELET COUNT, AUTOMATED 293 10^3/uL (150-450); RED BLOOD COUNT 4.57 10^6/uL (4.30-6.10); WHITE BLOOD COUNT 9.5 10^3/uL (4.0-10.0)
[2023-11-05 10:35] LABS: CK-MB VALUE MASS < 1.0 NG/ML (<3.6); INR 1.05; LIPASE 28 U/L (12-53); PROTHROMBIN TIME 13.4 SECONDS (12.5-14.5)
[2023-11-05 10:37] LABS: ALBUMIN 3.3 G/DL (3.2-5.2); ALKALINE PHOSPHATASE 90 U/L (46-116); ALT/SGPT 31 U/L (7.0-40); AMYLASE 55 U/L (30-118); AST/SGOT 31 U/L (<34); BILIRUBIN,DIRECT 0.1 MG/DL (<0.4); BILIRUBIN,TOTAL 0.4 MG/DL (0.3-1.2); BLOOD UREA NITROGEN 22 MG/DL (9-23); CALCIUM LEVEL 10.7 MG/DL (8.3-10.6); CARBON DIOXIDE LEVEL 24 MMOL/L (20-31); CHLORIDE LEVEL 98 MMOL/L (98-107); CREATININE FOR GFR 0.94 MG/DL (0.70-1.30); GLOMERULAR FILTRATION RATE > 60.0 (>42); GLUCOSE, FASTING 288 MG/DL (74-106); POTASSIUM SERUM 4.1 MMOL/L (3.5-5.1); SODIUM LEVEL 134 MMOL/L (136-145); TOTAL PROTEIN 7.5 G/DL (5.7-8.2)
[2023-11-05 10:39] LABS: FREE T4 1.35 NG/DL (0.89-1.76)
[2023-11-05 10:44] LABS: CPK CREATINE PHOSPHOKINASE 41 U/L (46-171); MB/CK RELATIVE INDEX 2.43 (< OR =4)
[2023-11-05] MEDS ORDERED: ISOVUE-370 76% 100ML VIAL As Ordered ONE (10:45)
[2023-11-05] MEDS: METOCLOPRAMIDE INJ 10MG/2ML VIAL IV ONE (10:56)
[2023-11-05] MEDS: MORPHINE 2 MG/ML 1ML VIAL IV PRN (11:25)
[2023-11-05 11:32] LABS: CK-MB VALUE MASS < 1.0 NG/ML (<3.6)
[2023-11-05 11:33] LABS: CPK CREATINE PHOSPHOKINASE 39 U/L (46-171); MB/CK RELATIVE INDEX 2.56 (< OR =4)
[2023-11-05] MEDS ORDERED: DEXTROSE 50% 50ML SYRINGE IV PRN (12:25)
[2023-11-05] MEDS ORDERED: GLUCAGON INJ 1MG VIAL SC PRN (12:25)
[2023-11-05] MEDS ORDERED: GLUCOSE 4GM CHEW TABLET PO PRN (12:25)
[2023-11-05 12:31] LABS: RSV AMPLIFICATION NEGATIVE (NEGATIVE)
[2023-11-05] MEDS: INSULIN LISPRO (NovoLOG) PER UNIT SC SCH ×2 (13:03→20:27)
[2023-11-05] MEDS ORDERED: MED REC IN PROGRESS XX SCH (13:35)
[2023-11-05] MEDS ORDERED: TADA20TA PO (14:53)
[2023-11-05] MEDS ORDERED: HUMA100I5 SC (14:53)
[2023-11-05] MEDS ORDERED: TRAN1DIS4 TOP (14:53)
[2023-11-05] MEDS ORDERED: QUET1TAB17 PO (14:53)
[2023-11-05 14:55] VITALS: BP 172/76; TEMP 97.4; O2SAT 95
[2023-11-05] MEDS ORDERED: HOME MED LIST COMPLETE! XX SCH (15:00)
[2023-11-05] MEDS ORDERED: SCOPOLAMINE 1MG TRANSDERMAL PATCH TOP PRN (15:15)
[2023-11-05 16:00] VITALS: BP 156/74; TEMP 97.4; O2SAT 96
[2023-11-05] MEDS: METOCLOPRAMIDE INJ 10MG/2ML VIAL IV SCH (16:18)
[2023-11-05] MEDS: SUCRALFATE 1 GM TAB PO SCH (16:18)
[2023-11-05] MEDS: MAALOX 30 ML SUSP *UDC PO PRN (16:18)
[2023-11-05] MEDS: PANTOPRAZOLE 40MG VIAL IV SCH (17:10)
[2023-11-05 20:00] VITALS: BP 122/65; TEMP 97; O2SAT 95
[2023-11-05] MEDS: QUEtiapine FUMARATE 25 MG TAB PO SCH (20:27)
[2023-11-05] MEDS: ENOXAPARIN 40MG/0.4ML SYRINGE (J1650 PER 10MG) SC SCH (20:27)
[2023-11-05] MEDS: GABAPENTIN 300 MG CAP PO SCH (20:27)
[2023-11-06] VITALS: BP 133/80; TEMP 97.2; O2SAT 93
[2023-11-06 04:00] VITALS: BP 162/80; TEMP 96.7; O2SAT 94
[2023-11-06 08:00] VITALS: BP 180/92; TEMP 97.2; O2SAT 96
[2023-11-06 08:02] VITALS: BP 162/80
[2023-11-06] MEDS: ATORVASTATIN 20 MG TAB PO SCH (08:02)
[2023-11-06] MEDS: GABAPENTIN 300 MG CAP PO SCH (08:02)
[2023-11-06] MEDS: CLOPIDOGREL 75 MG TAB PO SCH (08:02)
[2023-11-06 10:13] LABS: ALBUMIN 2.5 G/DL (3.2-5.2); ALKALINE PHOSPHATASE 72 U/L (46-116); ALT/SGPT 28 U/L (7.0-40); AST/SGOT 26 U/L (<34); BILIRUBIN,TOTAL 0.3 MG/DL (0.3-1.2); BLOOD UREA NITROGEN 16 MG/DL (9-23); CALCIUM LEVEL 9.4 MG/DL (8.3-10.6); CARBON DIOXIDE LEVEL 23 MMOL/L (20-31); CHLORIDE LEVEL 107 MMOL/L (98-107); CREATININE FOR GFR 0.88 MG/DL (0.70-1.30); GLOMERULAR FILTRATION RATE > 60.0 (>42); GLUCOSE, FASTING 206 MG/DL (74-106); MAGNESIUM LEVEL 1.9 MG/DL (1.8-2.4); POTASSIUM SERUM 3.6 MMOL/L (3.5-5.1); SODIUM LEVEL 139 MMOL/L (136-145); TOTAL PROTEIN 5.9 G/DL (5.7-8.2)
[2023-11-06 12:00] VITALS: BP 149/82; TEMP 97.7; O2SAT 95
[2023-11-06] MEDS ORDERED: MYLASSUD PO (13:18)
[2023-11-06] MEDS ORDERED: PANT40TA29 PO (13:18)
== END 2023-11-06 14:51 | disposition home or self-care (01) ==
LOC: M ED 09:20 → M ED INP 12:19 → ENRESERV 14:10 → M PCU 14:55
PROVIDERS: ADMIT Internal Medicine; ATTEND Internal Medicine
DX: R11.10 Vomiting, unspecified (principal); E11.43 Type 2 diabetes mellitus with diabetic autonomic (poly)neuropathy; E87.20 Acidosis, unspecified; E11.319 Type 2 diabetes mellitus with unspecified diabetic retinopathy without macular edema; G21.9 Secondary parkinsonism, unspecified; I11.0 Hypertensive heart disease with heart failure; I65.21 Occlusion and stenosis of right carotid artery; I25.10 Atherosclerotic heart disease of native coronary artery without angina pectoris; Z95.1 Presence of aortocoronary bypass graft; N40.0 Benign prostatic hyperplasia without lower urinary tract symptoms; K21.9 Gastro-esophageal reflux disease without esophagitis; R07.9 Chest pain, unspecified; I50.9 Heart failure, unspecified; Z87.19 Personal history of other diseases of the digestive system; R10.13 Epigastric pain; Z87.891 Personal history of nicotine dependence; Z88.0 Allergy status to penicillin; Z88.1 Allergy status to other antibiotic agents; Z88.2 Allergy status to sulfonamides; Z79.899 Other long term (current) drug therapy; Z79.02 Long term (current) use of antithrombotics/antiplatelets; Z79.4 Long term (current) use of insulin
CPT/HCPCS: 36415; 71045; 71275; 74177; 80047; 80048; 80053; 80076; 81001; 82150; 82550; 82553; 83605; 83690; 83735; 83880; 84439; 84443; 84484; 85025; 85610; 85730; 86850; 86900; 86901; 87040; 87631; 93005; 93041; 96361; 96372; 96374; 96375; 96376; 99285; C9113; G0378; J1650; J1815; J2765; Q9967

== ENCOUNTER → 2024-02-22 | Outpatient (CLI) | payer MEDICARE, OTHER ==
[~2024-02-22] MED LIST changes: +HUMA100I5 SC; +MYLASSUD PO; +PROHANCE 279.3MG/ML 15ML VIAL As Ordered ONE; +PROHANCE 279.3MG/ML 5ML VIAL As Ordered ONE
== END ==
LOC: M RAD 10:24
PROVIDERS: ATTEND Internal Medicine Gastroenterology
DX: D37.8 Neoplasm of uncertain behavior of other specified digestive organs (principal); K86.2 Cyst of pancreas
CPT/HCPCS: 74183; A9576

== ENCOUNTER 2024-04-16 20:11 | Inpatient (IN) | payer MEDICARE, OTHER ==
[~2024-04-16] VITALS: Ht 180.3 cm; Wt 109.1 kg
[~2024-04-16 20:11] MED LIST changes: +BYST1TAB2 PO; -BYST5TAB2 PO; +ONDA-282 PO; +ONDA-282 SL; -ONDA4TAB6 PO; -ONDA4TAB6 SL; -PROHANCE 279.3MG/ML 15ML VIAL As Ordered ONE; -PROHANCE 279.3MG/ML 5ML VIAL As Ordered ONE
[2024-04-16 20:45] LABS: BASO % 0.4 % (0.0-1.0); EOS % 0.2 % (0.0-3.0); HEMATOCRIT 39.9 % (42.0-52.0); HEMOGLOBIN 13.7 g/dl (13.5-17.5); LYMPH # 1.3 10^3/uL (1.5-5.0); LYMPH % 16.3 % (24.0-44.0); MEAN CORPUSCULAR HGB CONC 34.3 g/dl (32.0-36.5); MEAN CORPUSCULAR VOLUME 81.6 fl (80.0-96.0); MONO # 0.6 10^3/uL (0.0-0.8); MONO % 6.8 % (2.0-8.0); NEUTROPHILS # 6.2 10^3/uL (1.5-8.5); NEUTROPHILS % 75.9 % (36.0-66.0); PLATELET COUNT, AUTOMATED 297 10^3/uL (150-450); RED BLOOD COUNT 4.89 10^6/uL (4.30-6.10); WHITE BLOOD COUNT 8.1 10^3/uL (4.0-10.0)
[2024-04-16 21:05] LABS: LIPASE 27 U/L (12-53)
[2024-04-16 21:06] LABS: CK-MB VALUE MASS < 1.0 NG/ML (<3.6)
[2024-04-16 21:07] LABS: AMYLASE 50 U/L (30-118)
[2024-04-16 21:08] LABS: ALBUMIN 3.2 G/DL (3.2-5.2); ALKALINE PHOSPHATASE 104 U/L (46-116); ALT/SGPT 17 U/L (7.0-40); AST/SGOT 21 U/L (<34); BILIRUBIN,DIRECT < 0.1 MG/DL (<0.4); BILIRUBIN,TOTAL 0.3 MG/DL (0.3-1.2); BLOOD UREA NITROGEN 26 MG/DL (9-23); CALCIUM LEVEL 10.3 MG/DL (8.3-10.6); CARBON DIOXIDE LEVEL 25 MMOL/L (20-31); CHLORIDE LEVEL 98 MMOL/L (98-107); CREATININE FOR GFR 1.16 MG/DL (0.70-1.30); GLOMERULAR FILTRATION RATE > 60.0 (>42); GLUCOSE, FASTING 294 MG/DL (74-106); POTASSIUM SERUM 4.4 MMOL/L (3.5-5.1); SODIUM LEVEL 134 MMOL/L (136-145); TOTAL PROTEIN 8.1 G/DL (5.7-8.2)
[2024-04-16 21:15] LABS: CPK CREATINE PHOSPHOKINASE 50 U/L (46-171)
[2024-04-16] MEDS ORDERED: ISOVUE-370 76% 100ML VIAL As Ordered ONE (21:26)
[2024-04-16] MEDS: METOCLOPRAMIDE INJ 10MG/2ML VIAL IV ONE (21:45)
[2024-04-16] MEDS: PANTOPRAZOLE 40MG VIAL IV ONE (21:45)
[2024-04-16 22:35] LABS: CK-MB VALUE MASS < 1.0 NG/ML (<3.6)
[2024-04-16 22:41] LABS: CPK CREATINE PHOSPHOKINASE 39 U/L (46-171); MB/CK RELATIVE INDEX 2.56 (< OR =4)
[2024-04-16] MEDS: ONDANSETRON 4MG 2ML VIAL IV ONE (23:20)
[2024-04-16] MEDS ORDERED: MAALOX 30 ML SUSP *UDC PO PRN (23:55)
[2024-04-16] MEDS ORDERED: MOM 30ML SUSPENSION UDC PO PRN (23:55)
[2024-04-16] MEDS ORDERED: ONDANSETRON 4MG 2ML VIAL IV PRN (23:55)
[2024-04-16] MEDS ORDERED: ACETAMINOPHEN TAB 650MG DOSE (2X325MG) PO PRN (23:55)
[2024-04-17] MEDS ORDERED: BENG1CRE EXT (00:06)
[2024-04-17] MEDS ORDERED: AMLO1TAB24 PO (00:06)
[2024-04-17] MEDS ORDERED: PANT40TA29 PO (00:06)
[2024-04-17] MEDS ORDERED: MIRA33506 PO (00:07)
[2024-04-17] MEDS ORDERED: HOME MED LIST COMPLETE! XX SCH (00:10)
[2024-04-17] MEDS ORDERED: ANALGESIC BALM CRM 3OZ TOP PRN (00:10)
[2024-04-17] MEDS: HALOPERIDOL LACTATE 5MG/ML VIAL IV ONE (00:16)
[2024-04-17] MEDS: NS 1,000 ML IV SCH (00:17)
[2024-04-17 00:41] LABS: INR 1.06; PARTIAL THROMBOPLASTIN TIME 30.6 SECONDS (24.8-34.2); PROTHROMBIN TIME 13.5 SECONDS (12.5-14.5)
[2024-04-17 00:57] LABS: PROCALCITONIN 0.04 ng/ml
[2024-04-17] MEDS ORDERED: GLUCAGON INJ 1MG VIAL SC PRN (03:00)
[2024-04-17] MEDS ORDERED: DEXTROSE 50% 50ML SYRINGE IV PRN (03:00)
[2024-04-17] MEDS ORDERED: GLUCOSE 4 GM CHEW PO PRN (03:00)
[2024-04-17] MEDS: METOCLOPRAMIDE INJ 10MG/2ML VIAL IV SCH (06:34)
[2024-04-17] MEDS: LEVOTHYROXINE 125MCG TABLET (0.125MG) PO SCH (06:34)
[2024-04-17 07:59] LABS: ALKALINE PHOSPHATASE 94 U/L (46-116); ALT/SGPT 19 U/L (7.0-40); AST/SGOT 18 U/L (<34); BILIRUBIN,TOTAL 0.3 MG/DL (0.3-1.2); BLOOD UREA NITROGEN 28 MG/DL (9-23); CARBON DIOXIDE LEVEL 23 MMOL/L (20-31); CHLORIDE LEVEL 101 MMOL/L (98-107); CREATININE FOR GFR 1.13 MG/DL (0.70-1.30); GLOMERULAR FILTRATION RATE > 60.0 (>42); GLUCOSE, FASTING 260 MG/DL (74-106); POTASSIUM SERUM 4.5 MMOL/L (3.5-5.1); PROCALCITONIN 0.05 ng/ml; SODIUM LEVEL 133 MMOL/L (136-145); TOTAL PROTEIN 7.6 G/DL (5.7-8.2)
[2024-04-17 08:08] LABS: HEMATOCRIT 37.4 % (42.0-52.0); HEMOGLOBIN 12.8 g/dl (13.5-17.5); MEAN CORPUSCULAR HEMOGLOBIN 28.3 pg (27.0-33.0); MEAN CORPUSCULAR HGB CONC 34.2 g/dl (32.0-36.5); MEAN CORPUSCULAR VOLUME 82.7 fl (80.0-96.0); PLATELET COUNT, AUTOMATED 236 10^3/uL (150-450); RED BLOOD COUNT 4.52 10^6/uL (4.30-6.10); WHITE BLOOD COUNT 6.4 10^3/uL (4.0-10.0)
[2024-04-17] MEDS: INSULIN LISPRO (NovoLOG) PER UNIT SC SCH ×2 (08:40→21:00)
[2024-04-17] MEDS: CLOPIDOGREL 75 MG TAB PO SCH (08:41)
[2024-04-17] MEDS: amLODIPine 5 MG TAB PO SCH (08:41)
[2024-04-17] MEDS: GABAPENTIN 300 MG CAP PO SCH ×2 (08:41→20:07)
[2024-04-17] MEDS: FUROSEMIDE 40 MG TAB PO SCH (08:41)
[2024-04-17] MEDS: PANTOPRAZOLE 40MG VIAL IV SCH (08:41)
[2024-04-17] MEDS: DOCUSATE SODIUM 100MG CAPSULE PO SCH (08:41)
[2024-04-17] MEDS: ENOXAPARIN 40MG/0.4ML SYRINGE (J1650 PER 10MG) SC SCH (08:42)
[2024-04-17] MEDS: MIRALAX *UNIT DOSE* 17GM PACKET PO SCH (08:42)
[2024-04-17] MEDS ORDERED: E-Z-PAQUE 96% w/w SUSP 176GM BTL As Ordered ONE (11:07)
[2024-04-17] MEDS ORDERED: E-Z-HD 98% w/w 340GM SUSP BTL As Ordered ONE (11:07)
[2024-04-17 14:45] LABS: HEMOGLOBIN A1c 9.8 % (4.0-6.0)
[2024-04-17 15:00] VITALS: BP 153/96; TEMP 97.3
[2024-04-17 16:18] VITALS: O2SAT 92
[2024-04-17 20:00] VITALS: BP 141/83; TEMP 97.9; O2SAT 93
[2024-04-17] MEDS: LEVEMIR (INSULIN DETEMIR) 1 UNITS/0.01ML SC SCH (20:06)
[2024-04-17] MEDS ORDERED: LEVEMIR (INSULIN DETEMIR) 1 UNITS/0.01ML SC SCH (21:00)
[2024-04-17] MEDS: LEVEMIR (INSULIN DETEMIR) 1 UNITS/0.01ML SC ONE (23:20)
[2024-04-18 01:20] VITALS: BP 148/97; TEMP 97.9; O2SAT 93
[2024-04-18 04:00] VITALS: BP 144/69; TEMP 97.3; O2SAT 92
[2024-04-18 06:09] LABS: BASO % 0.4 % (0.0-1.0); EOS # 0.1 10^3/uL (0.0-0.5); EOS % 1.5 % (0.0-3.0); HEMATOCRIT 33.4 % (42.0-52.0); HEMOGLOBIN 11.3 g/dl (13.5-17.5); LYMPH # 1.8 10^3/uL (1.5-5.0); LYMPH % 25.5 % (24.0-44.0); MEAN CORPUSCULAR HGB CONC 33.8 g/dl (32.0-36.5); MEAN CORPUSCULAR VOLUME 82.9 fl (80.0-96.0); MONO # 0.6 10^3/uL (0.0-0.8); NEUTROPHILS # 4.4 10^3/uL (1.5-8.5); NEUTROPHILS % 64.3 % (36.0-66.0); PLATELET COUNT, AUTOMATED 212 10^3/uL (150-450); RED BLOOD COUNT 4.03 10^6/uL (4.30-6.10); WHITE BLOOD COUNT 6.9 10^3/uL (4.0-10.0)
[2024-04-18 06:37] LABS: CALCIUM LEVEL 9.1 MG/DL (8.3-10.6); CREATININE FOR GFR 1.27 MG/DL (0.70-1.30); GLOMERULAR FILTRATION RATE 58.9 (>42); MAGNESIUM LEVEL 1.9 MG/DL (1.8-2.4); POTASSIUM SERUM 3.6 MMOL/L (3.5-5.1)
[2024-04-18 12:00] VITALS: BP 117/78; TEMP 97.5; O2SAT 94
[2024-04-18] MEDS: METOCLOPRAMIDE 10MG TAB PO SCH (17:21)
[2024-04-18 20:20] VITALS: BP 102/67; TEMP 97.7; O2SAT 95
[2024-04-18] MEDS: LEVEMIR (INSULIN DETEMIR) 1 UNITS/0.01ML SC SCH (20:34)
[2024-04-19 04:30] VITALS: BP 114/53; TEMP 97.7; O2SAT 91
[2024-04-19 10:32] VITALS: BP 140/62
[2024-04-19 12:00] VITALS: BP 150/90; TEMP 97.7; O2SAT 94
[2024-04-19 17:54] VITALS: O2SAT 97
[2024-04-19 21:30] VITALS: BP 150/70; TEMP 98.1; O2SAT 95
[2024-04-20 05:44] VITALS: BP 140/76; TEMP 97.9; O2SAT 93
[2024-04-20 07:13] LABS: BASO % 0.6 % (0.0-1.0); EOS # 0.2 10^3/uL (0.0-0.5); EOS % 3.4 % (0.0-3.0); HEMATOCRIT 33.5 % (42.0-52.0); HEMOGLOBIN 11.3 g/dl (13.5-17.5); LYMPH # 1.7 10^3/uL (1.5-5.0); LYMPH % 24.9 % (24.0-44.0); MEAN CORPUSCULAR HEMOGLOBIN 27.8 pg (27.0-33.0); MEAN CORPUSCULAR HGB CONC 33.7 g/dl (32.0-36.5); MEAN CORPUSCULAR VOLUME 82.5 fl (80.0-96.0); MONO # 0.5 10^3/uL (0.0-0.8); MONO % 6.7 % (2.0-8.0); NEUTROPHILS # 4.4 10^3/uL (1.5-8.5); NEUTROPHILS % 64.1 % (36.0-66.0); PLATELET COUNT, AUTOMATED 206 10^3/uL (150-450); RED BLOOD COUNT 4.06 10^6/uL (4.30-6.10); WHITE BLOOD COUNT 6.9 10^3/uL (4.0-10.0)
[2024-04-20 07:42] LABS: BLOOD UREA NITROGEN 16 MG/DL (9-23); CALCIUM LEVEL 9.3 MG/DL (8.3-10.6); CARBON DIOXIDE LEVEL 25 MMOL/L (20-31); CHLORIDE LEVEL 105 MMOL/L (98-107); CREATININE FOR GFR 1.19 MG/DL (0.70-1.30); GLOMERULAR FILTRATION RATE > 60.0 (>42); GLUCOSE, FASTING 145 MG/DL (74-106); MAGNESIUM LEVEL 1.8 MG/DL (1.8-2.4); POTASSIUM SERUM 3.6 MMOL/L (3.5-5.1); SODIUM LEVEL 138 MMOL/L (136-145)
[2024-04-20 08:11] VITALS: BP 129/80
[2024-04-20 09:00] VITALS: O2SAT 95
[2024-04-20 12:48] VITALS: BP 128/67; TEMP 97.5; O2SAT 93
[2024-04-20] MEDS ORDERED: FURO20TA2 PO (13:23)
[2024-04-20] MEDS ORDERED: METO10TA2 PO (13:26)
== END 2024-04-20 15:51 | disposition home or self-care (01) | DRG 392 ==
LOC: M ED 20:11 → M ED INP 23:35 → M MSPAV 04-17 15:04
PROVIDERS: ADMIT Internal Medicine; ATTEND Internal Medicine
DX: R11.2 Nausea with vomiting, unspecified (principal); I50.32 Chronic diastolic (congestive) heart failure; K21.9 Gastro-esophageal reflux disease without esophagitis; K22.70 Barrett's esophagus without dysplasia; K57.30 Diverticulosis of large intestine without perforation or abscess without bleeding; K64.8 Other hemorrhoids; K44.9 Diaphragmatic hernia without obstruction or gangrene; I11.0 Hypertensive heart disease with heart failure; E78.5 Hyperlipidemia, unspecified; I25.10 Atherosclerotic heart disease of native coronary artery without angina pectoris; E03.9 Hypothyroidism, unspecified; K29.70 Gastritis, unspecified, without bleeding; R13.10 Dysphagia, unspecified; G47.33 Obstructive sleep apnea (adult) (pediatric); E11.42 Type 2 diabetes mellitus with diabetic polyneuropathy; I65.29 Occlusion and stenosis of unspecified carotid artery; M10.9 Gout, unspecified; N40.0 Benign prostatic hyperplasia without lower urinary tract symptoms; J39.2 Other diseases of pharynx; D50.9 Iron deficiency anemia, unspecified; Z86.010 Personal history of colon polyps; Z87.891 Personal history of nicotine dependence; Z88.0 Allergy status to penicillin; Z88.2 Allergy status to sulfonamides; Z95.1 Presence of aortocoronary bypass graft; Z88.1 Allergy status to other antibiotic agents

== ENCOUNTER 2024-05-16 18:35 | Inpatient (IN) | payer MEDICARE, OTHER ==
[~2024-05-16] VITALS: Ht 182.9 cm; Wt 119.0 kg
[~2024-05-16 18:35] MED LIST changes: +BENG1CRE EXT; +FURO20TA2 PO
[2024-05-16 19:20] LABS: BASO % 0.4 % (0.0-1.0); EOS # 0.1 10^3/uL (0.0-0.5); EOS % 0.6 % (0.0-3.0); HEMATOCRIT 36.5 % (42.0-52.0); HEMOGLOBIN 12.4 g/dl (13.5-17.5); LYMPH % 12.7 % (24.0-44.0); MEAN CORPUSCULAR HEMOGLOBIN 27.8 pg (27.0-33.0); MEAN CORPUSCULAR VOLUME 81.8 fl (80.0-96.0); MONO # 0.5 10^3/uL (0.0-0.8); NEUTROPHILS # 6.4 10^3/uL (1.5-8.5); NEUTROPHILS % 79.7 % (36.0-66.0); PLATELET COUNT, AUTOMATED 257 10^3/uL (150-450); RED BLOOD COUNT 4.46 10^6/uL (4.30-6.10)
[2024-05-16] MEDS: NS 500 ML IV ONE (19:41)
[2024-05-16] MEDS: PANTOPRAZOLE 40MG VIAL IV ONE (19:41)
[2024-05-16] MEDS: METOCLOPRAMIDE INJ 10MG/2ML VIAL IV ONE (19:41)
[2024-05-16 19:48] LABS: ALBUMIN 2.9 G/DL (3.2-5.2); BILIRUBIN,DIRECT 0.1 MG/DL (<0.4); BILIRUBIN,TOTAL 0.4 MG/DL (0.3-1.2); CALCIUM LEVEL 9.5 MG/DL (8.3-10.6); CREATININE FOR GFR 1.53 MG/DL (0.70-1.30); GLOMERULAR FILTRATION RATE 47.5 (>42); POTASSIUM SERUM 5.3 MMOL/L (3.5-5.1); TOTAL PROTEIN 7.4 G/DL (5.7-8.2)
[2024-05-16] MEDS: INSULIN LISPRO (NovoLOG) PER UNIT SC SCH (21:00)
[2024-05-16] MEDS: HALOPERIDOL LACTATE 5MG/ML VIAL IV ONE (21:31)
[2024-05-16] MEDS ORDERED: ACETAMINOPHEN TAB 650MG DOSE (2X325MG) PO PRN (22:35)
[2024-05-16] MEDS ORDERED: DEXTROSE 50% 50ML SYRINGE IV PRN (22:35)
[2024-05-16] MEDS ORDERED: GLUCOSE 4 GM CHEW PO PRN (22:35)
[2024-05-16] MEDS ORDERED: GLUCAGON INJ 1MG VIAL SC PRN (22:35)
[2024-05-16] MEDS ORDERED: FURO20TA2 PO (23:56)
[2024-05-17] MEDS ORDERED: HOME MED LIST COMPLETE! XX SCH
[2024-05-17 00:59] LABS: MAGNESIUM LEVEL 1.9 MG/DL (1.8-2.4)
[2024-05-17 01:30] VITALS: BP 188/102; TEMP 97.7; O2SAT 97
[2024-05-17] MEDS: NS 1,000 ML IV SCH (01:51)
[2024-05-17] MEDS: amLODIPine 5 MG TAB PO ONE (02:17)
[2024-05-17 03:01] VITALS: O2SAT 93
[2024-05-17 04:00] VITALS: BP 156/92; TEMP 97.9; O2SAT 95
[2024-05-17] MEDS: METOCLOPRAMIDE INJ 10MG/2ML VIAL IV SCH (05:06)
[2024-05-17] MEDS: LEVOTHYROXINE 125MCG TABLET (0.125MG) PO SCH (05:06)
[2024-05-17 06:05] LABS: HEMOGLOBIN 10.5 g/dl (13.5-17.5); MEAN CORPUSCULAR HEMOGLOBIN 27.9 pg (27.0-33.0); MEAN CORPUSCULAR HGB CONC 33.9 g/dl (32.0-36.5); MEAN CORPUSCULAR VOLUME 82.2 fl (80.0-96.0); PLATELET COUNT, AUTOMATED 204 10^3/uL (150-450); RED BLOOD COUNT 3.77 10^6/uL (4.30-6.10); WHITE BLOOD COUNT 6.8 10^3/uL (4.0-10.0)
[2024-05-17 06:34] LABS: ALBUMIN 2.4 G/DL (3.2-5.2); BILIRUBIN,TOTAL 0.3 MG/DL (0.3-1.2); CALCIUM LEVEL 9.3 MG/DL (8.3-10.6); CREATININE FOR GFR 1.58 MG/DL (0.70-1.30); GLOMERULAR FILTRATION RATE 45.7 (>42); MAGNESIUM LEVEL 1.9 MG/DL (1.8-2.4); POTASSIUM SERUM 3.9 MMOL/L (3.5-5.1); TOTAL PROTEIN 6.3 G/DL (5.7-8.2)
[2024-05-17] MEDS: CLOPIDOGREL 75 MG TAB PO SCH (08:10)
[2024-05-17] MEDS: GABAPENTIN 300 MG CAP PO SCH ×2 (08:10→20:22)
[2024-05-17] MEDS: HEPARIN SOD (PORCINE) 5000UNITS/ML 1ML VIAL/SYRINGE SC SCH (08:10)
[2024-05-17] MEDS: DOCUSATE SODIUM 100MG CAPSULE PO SCH (08:11)
[2024-05-17] MEDS: amLODIPine 5 MG TAB PO SCH (08:11)
[2024-05-17] MEDS: FUROSEMIDE 20 MG TAB PO SCH (08:11)
[2024-05-17] MEDS: PANTOPRAZOLE 40MG VIAL IV SCH ×2 (08:11→20:22)
[2024-05-17] MEDS: INSULIN LISPRO (NovoLOG) PER UNIT SC SCH (08:12)
[2024-05-17 12:00] VITALS: BP 167/92; TEMP 98.1; O2SAT 95
[2024-05-17] MEDS: SUCRALFATE SUSP 1GM/10ML UD PO SCH (17:18)
[2024-05-17] MEDS: ANALGESIC BALM CRM 3OZ TOP SCH (20:23)
[2024-05-17] MEDS: traZODone 25MG PER 1/2 TABLET PO SCH (20:23)
[2024-05-17 20:30] VITALS: BP 160/94; TEMP 98.3; O2SAT 96
[2024-05-18 05:51] VITALS: BP 158/90; TEMP 98.2; O2SAT 96
[2024-05-18 12:00] VITALS: BP 159/90; TEMP 97.8; O2SAT 97
[2024-05-18] MEDS: METOCLOPRAMIDE 10MG TAB PO SCH (12:00)
[2024-05-18 21:12] VITALS: BP 156/88; TEMP 98; O2SAT 95
[2024-05-19 05:15] VITALS: BP 158/94; TEMP 97.8
[2024-05-19] MEDS: PANTOPRAZOLE 40MG TAB (PROTONIX) PO SCH (08:04)
[2024-05-19 10:48] LABS: CALCIUM LEVEL 8.9 MG/DL (8.3-10.6); CREATININE FOR GFR 1.69 MG/DL (0.70-1.30); GLOMERULAR FILTRATION RATE 42.3 (>42)
[2024-05-19 12:00] VITALS: BP 152/76; TEMP 97.9; O2SAT 97
[2024-05-19] MEDS: NS 1,000 ML IV ONE (13:34)
[2024-05-19] MEDS: traMADol 50 MG TAB PO ONE (15:19)
[2024-05-19 21:30] VITALS: BP 149/70; TEMP 97.9; O2SAT 93
[2024-05-20 04:10] VITALS: BP 139/70; TEMP 98.1; O2SAT 95
[2024-05-20 08:00] VITALS: BP 165/83
[2024-05-20] MEDS: ONDANSETRON 4MG 2ML VIAL IV PRN (08:01)
[2024-05-20 08:43] LABS: BASO % 0.5 % (0.0-1.0); EOS # 0.1 10^3/uL (0.0-0.5); EOS % 1.6 % (0.0-3.0); HEMATOCRIT 33.4 % (42.0-52.0); HEMOGLOBIN 11.2 g/dl (13.5-17.5); LYMPH # 1.2 10^3/uL (1.5-5.0); LYMPH % 15.8 % (24.0-44.0); MEAN CORPUSCULAR HEMOGLOBIN 28.1 pg (27.0-33.0); MEAN CORPUSCULAR HGB CONC 33.5 g/dl (32.0-36.5); MEAN CORPUSCULAR VOLUME 83.9 fl (80.0-96.0); MONO # 0.4 10^3/uL (0.0-0.8); MONO % 5.8 % (2.0-8.0); NEUTROPHILS # 5.7 10^3/uL (1.5-8.5); NEUTROPHILS % 75.9 % (36.0-66.0); PLATELET COUNT, AUTOMATED 210 10^3/uL (150-450); RED BLOOD COUNT 3.98 10^6/uL (4.30-6.10); WHITE BLOOD COUNT 7.6 10^3/uL (4.0-10.0)
[2024-05-20 09:04] LABS: CALCIUM LEVEL 8.8 MG/DL (8.3-10.6); CREATININE FOR GFR 1.59 MG/DL (0.70-1.30); GLOMERULAR FILTRATION RATE 45.4 (>42); POTASSIUM SERUM 3.8 MMOL/L (3.5-5.1)
[2024-05-20 12:00] VITALS: BP 167/83; TEMP 97.7; O2SAT 94
[2024-05-20] MEDS ORDERED: ONDA-282 PO (17:12)
[2024-05-20] MEDS ORDERED: CEFD1CAP9 PO (17:12)
== END 2024-05-20 18:52 | disposition home or self-care (01) | DRG 988 ==
LOC: M ED 18:35 → M ED INP 22:34 → M MSPAV 05-17 01:10
PROVIDERS: ADMIT Family Medicine; ATTEND Internal Medicine Nephrology
PROC: 0QBM0ZZ Excision of Left Tarsal, Open Approach (ICD-10-PCS; principal; 2024-05-20)
DX: E11.43 Type 2 diabetes mellitus with diabetic autonomic (poly)neuropathy (principal); I50.32 Chronic diastolic (congestive) heart failure; N17.9 Acute kidney failure, unspecified; L97.528 Non-pressure chronic ulcer of other part of left foot with other specified severity; K31.84 Gastroparesis; K21.9 Gastro-esophageal reflux disease without esophagitis; K22.70 Barrett's esophagus without dysplasia; K44.9 Diaphragmatic hernia without obstruction or gangrene; I11.0 Hypertensive heart disease with heart failure; E78.5 Hyperlipidemia, unspecified; K29.00 Acute gastritis without bleeding; E11.42 Type 2 diabetes mellitus with diabetic polyneuropathy; R33.9 Retention of urine, unspecified; K59.09 Other constipation; I65.21 Occlusion and stenosis of right carotid artery; E11.621 Type 2 diabetes mellitus with foot ulcer; R13.10 Dysphagia, unspecified; E66.9 Obesity, unspecified; I25.10 Atherosclerotic heart disease of native coronary artery without angina pectoris; E03.9 Hypothyroidism, unspecified; G47.33 Obstructive sleep apnea (adult) (pediatric); M10.9 Gout, unspecified; N40.1 Benign prostatic hyperplasia with lower urinary tract symptoms; D50.9 Iron deficiency anemia, unspecified; Z95.5 Presence of coronary angioplasty implant and graft; Z87.891 Personal history of nicotine dependence; Z79.4 Long term (current) use of insulin; Z79.890 Hormone replacement therapy; Z79.899 Other long term (current) drug therapy; Z88.0 Allergy status to penicillin; Z88.1 Allergy status to other antibiotic agents; Z88.2 Allergy status to sulfonamides; Z88.8 Allergy status to other drugs, medicaments and biological substances

== ENCOUNTER 2024-10-22 14:15 | Inpatient (IN) | payer MEDICARE, OTHER ==
[~2024-10-22] VITALS: Ht 182.9 cm; Wt 93.2 kg
[~2024-10-22 14:15] MED LIST changes: +GABA-1172 PO; -GABA-282 PO
[2024-10-22 14:58] LABS: BASO % 0.1 % (0.0-1.0); EOS % 0.1 % (0.0-3.0); HEMATOCRIT 30.7 % (42.0-52.0); HEMOGLOBIN 10.3 g/dl (13.5-17.5); LYMPH # 0.7 10^3/uL (1.5-5.0); LYMPH % 3.5 % (24.0-44.0); MEAN CORPUSCULAR HEMOGLOBIN 29.4 pg (27.0-33.0); MEAN CORPUSCULAR HGB CONC 33.6 g/dl (32.0-36.5); MEAN CORPUSCULAR VOLUME 87.7 fl (80.0-96.0); MONO # 0.8 10^3/uL (0.0-0.8); MONO % 3.7 % (2.0-8.0); NEUTROPHILS # 18.7 10^3/uL (1.5-8.5); PLATELET COUNT, AUTOMATED 205 10^3/uL (150-450); WHITE BLOOD COUNT 20.4 10^3/uL (4.0-10.0)
[2024-10-22 15:20] LABS: VENOUS HCO3 26.1 MMOL/L (23.0-27.0); VENOUS O2 SATURATION 96.8 % (60.0-80.0); VENOUS PARTIAL PRESSURE O2 93.2 mmHg (30.0-50.0); VENOUS PH 7.444 UNITS (7.330-7.430); VENOUS STANDARD HCO3 26.2 MMOL/L; VENOUS TOTAL CO2 27.3 MMOL/L (24.0-28.0)
[2024-10-22 15:29] LABS: LIPASE 22 U/L (12-53)
[2024-10-22 15:31] LABS: ALBUMIN 2.2 G/DL (3.2-5.2); ALKALINE PHOSPHATASE 94 U/L (40-129); ALT/SGPT < 9 U/L (7.0-40); AST/SGOT < 8 U/L (<34); BILIRUBIN,DIRECT < 0.1 MG/DL (<0.4); BILIRUBIN,TOTAL 0.2 MG/DL (0.3-1.2); BLOOD UREA NITROGEN 55 MG/DL (9-23); CALCIUM LEVEL 9.7 MG/DL (8.3-10.6); CARBON DIOXIDE LEVEL 27 MMOL/L (20-31); CHLORIDE LEVEL 102 MMOL/L (98-107); GLOMERULAR FILTRATION RATE 16.1 (>42); GLUCOSE, FASTING 182 MG/DL (74-106); POTASSIUM SERUM 3.7 MMOL/L (3.5-5.1); SODIUM LEVEL 140 MMOL/L (136-145); TOTAL PROTEIN 6.5 G/DL (5.7-8.2)
[2024-10-22 15:32] LABS: ACETONE/KETONE 0.22 MMOL/L (0.02-0.27)
[2024-10-22 16:30] LABS: AMPHETAMINES LEVEL URINE NEGATIVE (NEGATIVE)
[2024-10-22 16:31] LABS: BARBITURATES URINE NEGATIVE (NEGATIVE); BENZODIAZEPINES URINE NEGATIVE (NEGATIVE); CANNABINOIDS URINE NEGATIVE (NEGATIVE); COCAINE METABOLITE URINE NEGATIVE (NEGATIVE); METHADONE URINE NEGATIVE (NEGATIVE); OPIATES URINE NEGATIVE (NEGATIVE); PHENCYCLIDINE URINE NEGATIVE (NEGATIVE)
[2024-10-22] MEDS: PANTOPRAZOLE 40MG VIAL IV ONE (17:05)
[2024-10-22] MEDS: METOCLOPRAMIDE INJ 10MG/2ML VIAL IV ONE (17:06)
[2024-10-22] MEDS ORDERED: MEROPENEM INJ 2 GM in NS 100 ML IV SCH (17:25)
[2024-10-22] MEDS ORDERED: MAALOX 30 ML SUSP *UDC PO PRN (17:25)
[2024-10-22] MEDS ORDERED: DOXYCYCLINE HYCLATE 100 MG in DEXTROSE 5% (D5W) MINI-BAG PLU 100 ML IV SCH (17:25)
[2024-10-22] MEDS ORDERED: MECL-86 PO (17:37)
[2024-10-22] MEDS ORDERED: METO10TA3 PO (17:37)
[2024-10-22] MEDS ORDERED: GABA-1171 PO (17:37)
[2024-10-22] MEDS ORDERED: SENN-186 PO (17:37)
[2024-10-22] MEDS ORDERED: CARV6.25 PO (17:41)
[2024-10-22] MEDS ORDERED: PRED25TA PO (17:41)
[2024-10-22] MEDS ORDERED: HOME MED LIST COMPLETE! XX SCH (17:45)
[2024-10-22] MEDS ORDERED: PANTOPRAZOLE SODIUM 40 MG in D5W 50 ML IV SCH (18:00)
[2024-10-22] MEDS: NS (Normal Saline) 0.9% 1,000 ML IV SCH (18:31)
[2024-10-22 18:32] LABS: CHOLESTEROL LEVEL 227 MG/DL (<200); CHOLESTEROL RISK RATIO 5.05 (<5); HDL CHOLESTEROL 44.9 MG/DL (>40); LDL CHOLESTEROL 150.7 MG/DL (<100); NON-HDL-C 182.1 MG/DL; TRIGLYCERIDES LEVEL 157 MG/DL (<150)
[2024-10-22 18:34] LABS: FREE T4 1.23 NG/DL (0.89-1.76)
[2024-10-22 18:35] LABS: THYROID STIMULATING HORMONE 2.649 uIU/ML (0.55-4.78)
[2024-10-22 18:44] LABS: PROCALCITONIN 0.37 ng/ml
[2024-10-22 19:28] LABS: HEMATOCRIT 31.1 % (42.0-52.0); HEMOGLOBIN 10.2 g/dl (13.5-17.5)
[2024-10-22] MEDS: SCOPOLAMINE 1MG TRANSDERMAL PATCH TOP SCH (19:53)
[2024-10-22 20:43] VITALS: BP 167/79; TEMP 97.7; O2SAT 96
[2024-10-22] MEDS: DOCUSATE SODIUM 100MG CAPSULE PO SCH (21:00)
[2024-10-22] MEDS: MEROPENEM INJ 500 MG in IV 1 EA IV SCH (21:45)
[2024-10-22 23:24] VITALS: BP 116/58; TEMP 98; O2SAT 94
[2024-10-23 00:27] LABS: HEMATOCRIT 28.5 % (42.0-52.0); HEMOGLOBIN 9.4 g/dl (13.5-17.5)
[2024-10-23 03:33] VITALS: BP 166/87; TEMP 97.4; O2SAT 96
[2024-10-23] MEDS: ACETAMINOPHEN 325 MG TAB PO PRN (03:42)
[2024-10-23 04:10] LABS: BASO % 0.2 % (0.0-1.0); EOS # 0.1 10^3/uL (0.0-0.5); EOS % 1.2 % (0.0-3.0); HEMATOCRIT 28.7 % (42.0-52.0); HEMOGLOBIN 9.6 g/dl (13.5-17.5); LYMPH % 8.2 % (24.0-44.0); MEAN CORPUSCULAR HEMOGLOBIN 29.9 pg (27.0-33.0); MEAN CORPUSCULAR HGB CONC 33.4 g/dl (32.0-36.5); MEAN CORPUSCULAR VOLUME 89.4 fl (80.0-96.0); MONO # 0.7 10^3/uL (0.0-0.8); MONO % 5.9 % (2.0-8.0); NEUTROPHILS # 10.1 10^3/uL (1.5-8.5); PLATELET COUNT, AUTOMATED 179 10^3/uL (150-450); RED BLOOD COUNT 3.21 10^6/uL (4.30-6.10)
[2024-10-23 04:55] LABS: ALBUMIN 2.1 G/DL (3.2-5.2); ALKALINE PHOSPHATASE 81 U/L (40-129); ALT/SGPT < 9 U/L (7.0-40); AST/SGOT < 8 U/L (<34); BILIRUBIN,TOTAL 0.2 MG/DL (0.3-1.2); BLOOD UREA NITROGEN 55 MG/DL (9-23); CALCIUM LEVEL 8.8 MG/DL (8.3-10.6); CARBON DIOXIDE LEVEL 25 MMOL/L (20-31); CHLORIDE LEVEL 105 MMOL/L (98-107); CREATININE FOR GFR 3.95 MG/DL (0.70-1.30); GLOMERULAR FILTRATION RATE 15.9 (>42); GLUCOSE, FASTING 138 MG/DL (74-106); POTASSIUM SERUM 3.6 MMOL/L (3.5-5.1); SODIUM LEVEL 142 MMOL/L (136-145)
[2024-10-23] MEDS: LEVOTHYROXINE 125MCG TABLET (0.125MG) PO SCH (06:00)
[2024-10-23 07:43] VITALS: BP 169/84; TEMP 97.9; O2SAT 96
[2024-10-23] MEDS: PANTOPRAZOLE 40MG VIAL IV SCH (08:30)
[2024-10-23] MEDS: SENNA 8.6 MG TAB (SENOKOT) PO SCH (09:00)
[2024-10-23] MEDS ORDERED: ASPIRIN 81MG ENTERIC TABLET PO SCH (09:00)
[2024-10-23] MEDS ORDERED: CARVedilol 6.25 MG TAB PO SCH (09:00)
[2024-10-23] MEDS: GABAPENTIN 100 MG CAP PO SCH (09:00)
[2024-10-23] MEDS ORDERED: ATORVASTATIN 20 MG TAB PO SCH (09:00)
[2024-10-23] MEDS ORDERED: GLUCOSE 4 GM CHEW PO PRN (09:55)
[2024-10-23] MEDS ORDERED: GLUCAGON INJ 1MG VIAL SC PRN (09:55)
[2024-10-23] MEDS ORDERED: DEXTROSE 50% 50ML SYRINGE IV PRN (09:55)
[2024-10-23 10:12] LABS: IRON (FE) 48 UG/DL (65-175)
[2024-10-23 10:14] LABS: FERRITIN 453.6 NG/ML (10.5-307.3)
[2024-10-23 10:15] LABS: FOLATE 19.39 NG/ML (>5.4); VITAMIN B12 LEVEL 668 PG/ML (211-911)
[2024-10-23] MEDS ORDERED: LIDOCAINE 1% MDV 20ML VIAL As Ordered ONE (10:27)
[2024-10-23] MEDS: METOCLOPRAMIDE INJ 10MG/2ML VIAL IV PRN (10:32)
[2024-10-23 10:53] LABS: PERCENT SATURATION 25.5 % (19.7-50.0); TOTAL IRON BINDING CAPACITY 188 UG/DL (250-425)
[2024-10-23] MEDS: INSULIN LISPRO (NovoLOG) PER UNIT SC SCH ×2 (12:00→21:00)
[2024-10-23 12:11] VITALS: BP 163/81; TEMP 97.3; O2SAT 97
[2024-10-23] MEDS ORDERED: hydrALAZINE 20MG/ML 1ML VIAL IV PRN (14:25)
[2024-10-23] MEDS ORDERED: METOCLOPRAMIDE INJ 10MG/2ML VIAL IV PRN (14:25)
[2024-10-23 16:32] VITALS: BP 159/77; TEMP 98; O2SAT 97
[2024-10-23] MEDS: METOCLOPRAMIDE INJ 10MG/2ML VIAL IV SCH (16:57)
[2024-10-23] MEDS: LORazepam 2 MG/ML 1ML VIAL IV PRN (18:16)
[2024-10-23 19:28] VITALS: BP 141/70; TEMP 97.9; O2SAT 97
[2024-10-23] MEDS: CARVedilol 6.25 MG TAB PO SCH (21:00)
[2024-10-23] MEDS: OLANZapine ORAL DISINTEGRATING TAB 5MG PO SCH (21:00)
[2024-10-23] MEDS: amLODIPine 5 MG TAB PO ONE (21:28)
[2024-10-23 23:52] VITALS: BP 151/78; TEMP 97.6; O2SAT 95
[2024-10-24 03:47] VITALS: BP 151/79; TEMP 97.6; O2SAT 97
[2024-10-24 06:09] LABS: BASO % 0.2 % (0.0-1.0); EOS # 0.3 10^3/uL (0.0-0.5); HEMATOCRIT 25.5 % (42.0-52.0); HEMOGLOBIN 8.3 g/dl (13.5-17.5); LYMPH % 10.1 % (24.0-44.0); MEAN CORPUSCULAR HEMOGLOBIN 29.6 pg (27.0-33.0); MEAN CORPUSCULAR HGB CONC 32.5 g/dl (32.0-36.5); MEAN CORPUSCULAR VOLUME 91.1 fl (80.0-96.0); MONO # 0.6 10^3/uL (0.0-0.8); MONO % 6.1 % (2.0-8.0); NEUTROPHILS # 8.1 10^3/uL (1.5-8.5); NEUTROPHILS % 80.2 % (36.0-66.0); PLATELET COUNT, AUTOMATED 154 10^3/uL (150-450)
[2024-10-24 06:47] LABS: ALBUMIN 1.8 G/DL (3.2-5.2); ALKALINE PHOSPHATASE 70 U/L (40-129); ALT/SGPT < 9 U/L (7.0-40); AST/SGOT < 8 U/L (<34); BILIRUBIN,TOTAL 0.2 MG/DL (0.3-1.2); BLOOD UREA NITROGEN 50 MG/DL (9-23); CALCIUM LEVEL 8.8 MG/DL (8.3-10.6); CARBON DIOXIDE LEVEL 25 MMOL/L (20-31); CHLORIDE LEVEL 105 MMOL/L (98-107); CREATININE FOR GFR 3.81 MG/DL (0.70-1.30); GLOMERULAR FILTRATION RATE 16.6 (>42); GLUCOSE, FASTING 99 MG/DL (74-106); MAGNESIUM LEVEL 1.8 MG/DL (1.8-2.4); POTASSIUM SERUM 3.1 MMOL/L (3.5-5.1); SODIUM LEVEL 141 MMOL/L (136-145); TOTAL PROTEIN 5.6 G/DL (5.7-8.2)
[2024-10-24] MEDS: amLODIPine 5 MG TAB PO SCH (07:57)
[2024-10-24] MEDS: KCL 10MEQ/100ML SWI (KRUN) 10 MEQ in IV 1 EA IV SCH (08:02)
[2024-10-24 08:15] VITALS: BP 155/80; TEMP 97.5; O2SAT 98
[2024-10-24] MEDS ORDERED: POTASSIUM CHLORIDE 10MEQ SR TABLET PO ONE (09:00)
[2024-10-24] MEDS: FERRIC CARBOXYMALTOSE INJ 750 MG, VIAL MATE ADAPTER 1 EACH in NS 100 ML IV ONE (10:55)
[2024-10-24 12:26] VITALS: BP 164/81; TEMP 97.5; O2SAT 97
[2024-10-24 15:37] VITALS: BP 171/87; TEMP 98.1; O2SAT 97
[2024-10-24 16:31] VITALS: BP 162/79
[2024-10-24 19:23] VITALS: BP 133/67; TEMP 97.9; O2SAT 95
[2024-10-25 04:52] VITALS: BP 147/76; TEMP 98.9; O2SAT 95
[2024-10-25 05:46] LABS: BASO % 0.3 % (0.0-1.0); EOS # 0.3 10^3/uL (0.0-0.5); EOS % 2.7 % (0.0-3.0); HEMOGLOBIN 8.5 g/dl (13.5-17.5); LYMPH % 9.6 % (24.0-44.0); MEAN CORPUSCULAR HEMOGLOBIN 29.7 pg (27.0-33.0); MEAN CORPUSCULAR HGB CONC 32.7 g/dl (32.0-36.5); MEAN CORPUSCULAR VOLUME 90.9 fl (80.0-96.0); MONO # 0.6 10^3/uL (0.0-0.8); MONO % 5.8 % (2.0-8.0); NEUTROPHILS # 8.2 10^3/uL (1.5-8.5); NEUTROPHILS % 81.1 % (36.0-66.0); PLATELET COUNT, AUTOMATED 147 10^3/uL (150-450); RED BLOOD COUNT 2.86 10^6/uL (4.30-6.10)
[2024-10-25 06:14] LABS: ALBUMIN 1.9 G/DL (3.2-5.2); ALKALINE PHOSPHATASE 75 U/L (40-129); ALT/SGPT < 9 U/L (7.0-40); AST/SGOT < 8 U/L (<34); BILIRUBIN,TOTAL 0.3 MG/DL (0.3-1.2); BLOOD UREA NITROGEN 46 MG/DL (9-23); CALCIUM LEVEL 8.9 MG/DL (8.3-10.6); CARBON DIOXIDE LEVEL 24 MMOL/L (20-31); CHLORIDE LEVEL 108 MMOL/L (98-107); GLOMERULAR FILTRATION RATE 17.1 (>42); GLUCOSE, FASTING 86 MG/DL (74-106); MAGNESIUM LEVEL 1.7 MG/DL (1.8-2.4); POTASSIUM SERUM 3.4 MMOL/L (3.5-5.1); SODIUM LEVEL 141 MMOL/L (136-145); TOTAL PROTEIN 5.4 G/DL (5.7-8.2)
[2024-10-25 07:46] VITALS: BP 162/86; TEMP 98.6; O2SAT 94
[2024-10-25] MEDS: MAG SULF 1GM/100ML (MAG RUN) 1 GM in IV 1 EA IV SCH (08:18)
[2024-10-25] MEDS: KCL 10MEQ/100ML SWI (KRUN) 10 MEQ in IV 1 EA IV SCH (10:35)
[2024-10-25 16:00] VITALS: BP 158/79; TEMP 98.2; O2SAT 96
[2024-10-25] MEDS: metroNIDAZOLE (FLAGYL) 500MG TABLET PO SCH (16:06)
[2024-10-25 20:01] VITALS: BP 158/84; TEMP 97.6; O2SAT 99
[2024-10-25] MEDS: CEFDINIR 300 MG CAP (OMNICEF) PO SCH (20:26)
[2024-10-25] MEDS: MOM 30ML SUSPENSION UDC PO PRN (20:26)
[2024-10-26 04:48] VITALS: BP 144/65; TEMP 96.9; O2SAT 94
[2024-10-26 06:33] LABS: BASO % 0.3 % (0.0-1.0); EOS # 0.3 10^3/uL (0.0-0.5); EOS % 3.2 % (0.0-3.0); HEMATOCRIT 23.7 % (42.0-52.0); HEMOGLOBIN 7.7 g/dl (13.5-17.5); LYMPH # 0.9 10^3/uL (1.5-5.0); LYMPH % 9.4 % (24.0-44.0); MEAN CORPUSCULAR HEMOGLOBIN 29.8 pg (27.0-33.0); MEAN CORPUSCULAR HGB CONC 32.5 g/dl (32.0-36.5); MEAN CORPUSCULAR VOLUME 91.9 fl (80.0-96.0); MONO # 0.6 10^3/uL (0.0-0.8); MONO % 6.6 % (2.0-8.0); NEUTROPHILS # 7.6 10^3/uL (1.5-8.5); PLATELET COUNT, AUTOMATED 141 10^3/uL (150-450); RED BLOOD COUNT 2.58 10^6/uL (4.30-6.10); WHITE BLOOD COUNT 9.5 10^3/uL (4.0-10.0)
[2024-10-26 07:06] LABS: ALBUMIN 1.7 G/DL (3.2-5.2); ALKALINE PHOSPHATASE 72 U/L (40-129); ALT/SGPT < 9 U/L (7.0-40); AST/SGOT < 8 U/L (<34); BILIRUBIN,TOTAL 0.2 MG/DL (0.3-1.2); BLOOD UREA NITROGEN 46 MG/DL (9-23); CALCIUM LEVEL 8.6 MG/DL (8.3-10.6); CARBON DIOXIDE LEVEL 24 MMOL/L (20-31); CHLORIDE LEVEL 110 MMOL/L (98-107); CREATININE FOR GFR 3.85 MG/DL (0.70-1.30); GLOMERULAR FILTRATION RATE 16.4 (>42); GLUCOSE, FASTING 107 MG/DL (74-106); MAGNESIUM LEVEL 2.3 MG/DL (1.8-2.4); POTASSIUM SERUM 3.9 MMOL/L (3.5-5.1); SODIUM LEVEL 141 MMOL/L (136-145); TOTAL PROTEIN 5.1 G/DL (5.7-8.2)
[2024-10-26 12:18] VITALS: BP 147/62; TEMP 97; O2SAT 95
[2024-10-26 20:35] VITALS: BP 157/73; TEMP 97.2; O2SAT 95
[2024-10-27 05:31] VITALS: BP 139/66; TEMP 98.1; O2SAT 96
[2024-10-27 06:08] LABS: BASO % 0.2 % (0.0-1.0); EOS # 0.3 10^3/uL (0.0-0.5); EOS % 3.2 % (0.0-3.0); HEMATOCRIT 24.8 % (42.0-52.0); LYMPH % 10.6 % (24.0-44.0); MEAN CORPUSCULAR HEMOGLOBIN 29.9 pg (27.0-33.0); MEAN CORPUSCULAR HGB CONC 32.3 g/dl (32.0-36.5); MEAN CORPUSCULAR VOLUME 92.5 fl (80.0-96.0); MONO # 0.5 10^3/uL (0.0-0.8); NEUTROPHILS # 7.5 10^3/uL (1.5-8.5); NEUTROPHILS % 80.2 % (36.0-66.0); PLATELET COUNT, AUTOMATED 160 10^3/uL (150-450); RED BLOOD COUNT 2.68 10^6/uL (4.30-6.10); WHITE BLOOD COUNT 9.3 10^3/uL (4.0-10.0)
[2024-10-27 06:35] LABS: ALBUMIN 1.7 G/DL (3.2-5.2); ALKALINE PHOSPHATASE 75 U/L (40-129); ALT/SGPT < 9 U/L (7.0-40); AST/SGOT < 8 U/L (<34); BILIRUBIN,TOTAL 0.2 MG/DL (0.3-1.2); BLOOD UREA NITROGEN 44 MG/DL (9-23); CALCIUM LEVEL 8.8 MG/DL (8.3-10.6); CARBON DIOXIDE LEVEL 24 MMOL/L (20-31); CHLORIDE LEVEL 108 MMOL/L (98-107); CREATININE FOR GFR 3.98 MG/DL (0.70-1.30); GLOMERULAR FILTRATION RATE 15.8 (>42); GLUCOSE, FASTING 96 MG/DL (74-106); MAGNESIUM LEVEL 2.4 MG/DL (1.8-2.4); SODIUM LEVEL 141 MMOL/L (136-145); TOTAL PROTEIN 5.3 G/DL (5.7-8.2)
[2024-10-27 08:43] VITALS: BP 140/64; TEMP 98; O2SAT 100
[2024-10-27 12:01] VITALS: BP 142/65; TEMP 97.9; O2SAT 98
[2024-10-27 16:33] VITALS: BP 135/69; TEMP 98; O2SAT 97
[2024-10-27] MEDS: METOCLOPRAMIDE 10MG TAB PO SCH (17:06)
[2024-10-27 19:33] VITALS: BP 156/74; TEMP 97.7; O2SAT 94
[2024-10-27] MEDS: PANTOPRAZOLE 40MG TAB (PROTONIX) PO SCH (20:47)
[2024-10-28 04:12] VITALS: BP 150/70; TEMP 99.8; O2SAT 93
[2024-10-28 06:30] LABS: BASO % 0.3 % (0.0-1.0); EOS # 0.3 10^3/uL (0.0-0.5); EOS % 2.5 % (0.0-3.0); HEMATOCRIT 25.1 % (42.0-52.0); HEMOGLOBIN 8.1 g/dl (13.5-17.5); LYMPH # 0.9 10^3/uL (1.5-5.0); LYMPH % 8.3 % (24.0-44.0); MEAN CORPUSCULAR HEMOGLOBIN 29.9 pg (27.0-33.0); MEAN CORPUSCULAR HGB CONC 32.3 g/dl (32.0-36.5); MEAN CORPUSCULAR VOLUME 92.6 fl (80.0-96.0); MONO # 0.6 10^3/uL (0.0-0.8); MONO % 5.8 % (2.0-8.0); NEUTROPHILS # 8.9 10^3/uL (1.5-8.5); NEUTROPHILS % 82.5 % (36.0-66.0); PLATELET COUNT, AUTOMATED 171 10^3/uL (150-450); RED BLOOD COUNT 2.71 10^6/uL (4.30-6.10); WHITE BLOOD COUNT 10.7 10^3/uL (4.0-10.0)
[2024-10-28 07:01] LABS: ALBUMIN 1.7 G/DL (3.2-5.2); ALKALINE PHOSPHATASE 79 U/L (40-129); ALT/SGPT < 9 U/L (7.0-40); AST/SGOT < 8 U/L (<34); BILIRUBIN,TOTAL 0.2 MG/DL (0.3-1.2); BLOOD UREA NITROGEN 42 MG/DL (9-23); CALCIUM LEVEL 8.5 MG/DL (8.3-10.6); CARBON DIOXIDE LEVEL 24 MMOL/L (20-31); CHLORIDE LEVEL 107 MMOL/L (98-107); CREATININE FOR GFR 4.11 MG/DL (0.70-1.30); GLOMERULAR FILTRATION RATE 15.2 (>42); GLUCOSE, FASTING 101 MG/DL (74-106); MAGNESIUM LEVEL 2.2 MG/DL (1.8-2.4); POTASSIUM SERUM 3.9 MMOL/L (3.5-5.1); SODIUM LEVEL 139 MMOL/L (136-145); TOTAL PROTEIN 5.3 G/DL (5.7-8.2)
[2024-10-28 07:59] VITALS: BP 145/70; TEMP 97.5; O2SAT 96
[2024-10-28 16:10] VITALS: BP 129/63; TEMP 97.5; O2SAT 96
[2024-10-28 19:49] VITALS: BP 131/58; TEMP 97.2; O2SAT 96
[2024-10-29 03:16] VITALS: BP 125/73; TEMP 97.6; O2SAT 95
[2024-10-29 07:43] LABS: BASO % 0.3 % (0.0-1.0); EOS # 0.3 10^3/uL (0.0-0.5); EOS % 2.8 % (0.0-3.0); HEMATOCRIT 25.1 % (42.0-52.0); LYMPH % 10.6 % (24.0-44.0); MEAN CORPUSCULAR HEMOGLOBIN 29.5 pg (27.0-33.0); MEAN CORPUSCULAR HGB CONC 31.9 g/dl (32.0-36.5); MEAN CORPUSCULAR VOLUME 92.6 fl (80.0-96.0); MONO # 0.6 10^3/uL (0.0-0.8); MONO % 6.4 % (2.0-8.0); NEUTROPHILS # 7.6 10^3/uL (1.5-8.5); NEUTROPHILS % 78.9 % (36.0-66.0); PLATELET COUNT, AUTOMATED 165 10^3/uL (150-450); RED BLOOD COUNT 2.71 10^6/uL (4.30-6.10); WHITE BLOOD COUNT 9.6 10^3/uL (4.0-10.0)
[2024-10-29 07:54] VITALS: BP 141/69; TEMP 97.4; O2SAT 96
[2024-10-29 08:12] LABS: ALBUMIN 1.7 G/DL (3.2-5.2); ALKALINE PHOSPHATASE 76 U/L (40-129); ALT/SGPT < 9 U/L (7.0-40); AST/SGOT < 8 U/L (<34); BILIRUBIN,TOTAL 0.2 MG/DL (0.3-1.2); BLOOD UREA NITROGEN 43 MG/DL (9-23); CALCIUM LEVEL 8.6 MG/DL (8.3-10.6); CARBON DIOXIDE LEVEL 24 MMOL/L (20-31); CHLORIDE LEVEL 107 MMOL/L (98-107); CREATININE FOR GFR 4.32 MG/DL (0.70-1.30); GLOMERULAR FILTRATION RATE 14.3 (>42); GLUCOSE, FASTING 102 MG/DL (74-106); POTASSIUM SERUM 4.3 MMOL/L (3.5-5.1); SODIUM LEVEL 141 MMOL/L (136-145); TOTAL PROTEIN 5.2 G/DL (5.7-8.2)
[2024-10-29 10:15] VITALS: BP 143/69
[2024-10-29 21:01] VITALS: BP 154/74; TEMP 97.8; O2SAT 94
[2024-10-30 00:06] VITALS: BP 148/70; TEMP 97.9; O2SAT 96
[2024-10-30 03:51] VITALS: BP 151/76; TEMP 98.1; O2SAT 94
[2024-10-30 07:21] LABS: BASO % 0.2 % (0.0-1.0); EOS # 0.2 10^3/uL (0.0-0.5); EOS % 2.8 % (0.0-3.0); HEMATOCRIT 25.5 % (42.0-52.0); HEMOGLOBIN 8.2 g/dl (13.5-17.5); LYMPH # 1.1 10^3/uL (1.5-5.0); LYMPH % 13.2 % (24.0-44.0); MEAN CORPUSCULAR HEMOGLOBIN 29.9 pg (27.0-33.0); MEAN CORPUSCULAR HGB CONC 32.2 g/dl (32.0-36.5); MEAN CORPUSCULAR VOLUME 93.1 fl (80.0-96.0); MONO # 0.6 10^3/uL (0.0-0.8); MONO % 7.4 % (2.0-8.0); NEUTROPHILS # 6.4 10^3/uL (1.5-8.5); NEUTROPHILS % 75.6 % (36.0-66.0); PLATELET COUNT, AUTOMATED 164 10^3/uL (150-450); RED BLOOD COUNT 2.74 10^6/uL (4.30-6.10); WHITE BLOOD COUNT 8.5 10^3/uL (4.0-10.0)
[2024-10-30 07:40] LABS: CALCIUM LEVEL 8.6 MG/DL (8.3-10.6); CREATININE FOR GFR 4.53 MG/DL (0.70-1.30); GLOMERULAR FILTRATION RATE 13.6 (>42); POTASSIUM SERUM 4.5 MMOL/L (3.5-5.1)
[2024-10-30 08:10] VITALS: BP 147/72; TEMP 98; O2SAT 95
[2024-10-30 11:57] VITALS: BP 155/70; TEMP 97.9; O2SAT 95
[2024-10-30] MEDS ORDERED: ATROPINE SULFATE 1% OPHTH SOLN 2ML BTL SL PRN (14:45)
[2024-10-30] MEDS ORDERED: HYOSCYAMINE SULFATE 0.125 MG SUBL TABLET PO PRN (14:45)
[2024-10-31] MEDS: MORPHINE 10MG/0.5ML ORAL CONCENTRATE SOLUTION U/D SL PRN (01:34)
[2024-11-02] MEDS: NYSTATIN CREAM 15GM TOP SCH (20:22)
[2024-11-04] MEDS: MORPHINE 10MG/0.5ML ORAL CONCENTRATE SOLUTION U/D SL SCH (12:59)
[2024-11-04 21:00] VITALS: BP 147/72
[2024-11-05 02:57] VITALS: O2SAT 96
[2024-11-05] MEDS: METOCLOPRAMIDE 10MG TAB PO PRN (17:02)
[2024-11-06] MEDS: LORazepam 1 MG TAB PO PRN (14:22)
== END 2024-11-08 13:05 | disposition expired | DRG 377 ==
LOC: EDBD 14:15 → M ED 14:15 → M ED INP 17:49 → M PCU 20:23 → M MSPAV 11-02 06:07
PROVIDERS: ADMIT Internal Medicine; ATTEND Internal Medicine
PROC: 0JPT3XZ Removal of Tunneled Vascular Access Device from Trunk Subcutaneous Tissue and Fascia, Percutaneous Approach (ICD-10-PCS; principal; 2024-10-23 10:48)
DX: K92.0 Hematemesis (principal); G92.8 Other toxic encephalopathy; N18.4 Chronic kidney disease, stage 4 (severe); I13.0 Hypertensive heart and chronic kidney disease with heart failure and stage 1 through stage 4 chronic kidney disease, or unspecified chronic kidney disease; I50.32 Chronic diastolic (congestive) heart failure; K57.32 Diverticulitis of large intestine without perforation or abscess without bleeding; D62 Acute posthemorrhagic anemia; N17.9 Acute kidney failure, unspecified; Z51.5 Encounter for palliative care; Z66 Do not resuscitate; E11.43 Type 2 diabetes mellitus with diabetic autonomic (poly)neuropathy; I25.10 Atherosclerotic heart disease of native coronary artery without angina pectoris; G47.33 Obstructive sleep apnea (adult) (pediatric); E11.22 Type 2 diabetes mellitus with diabetic chronic kidney disease; E78.5 Hyperlipidemia, unspecified; E03.9 Hypothyroidism, unspecified; K22.70 Barrett's esophagus without dysplasia; K44.9 Diaphragmatic hernia without obstruction or gangrene; K21.9 Gastro-esophageal reflux disease without esophagitis; M10.9 Gout, unspecified; D50.9 Iron deficiency anemia, unspecified; E11.51 Type 2 diabetes mellitus with diabetic peripheral angiopathy without gangrene; N40.1 Benign prostatic hyperplasia with lower urinary tract symptoms; R33.9 Retention of urine, unspecified; E11.42 Type 2 diabetes mellitus with diabetic polyneuropathy; E66.9 Obesity, unspecified; K31.84 Gastroparesis; K64.8 Other hemorrhoids; E87.6 Hypokalemia; I65.29 Occlusion and stenosis of unspecified carotid artery; R57.1 Hypovolemic shock; E83.42 Hypomagnesemia; Z79.890 Hormone replacement therapy; Z79.52 Long term (current) use of systemic steroids; Z79.899 Other long term (current) drug therapy; Z95.1 Presence of aortocoronary bypass graft; Z88.0 Allergy status to penicillin; Z88.1 Allergy status to other antibiotic agents; Z88.2 Allergy status to sulfonamides; Z89.512 Acquired absence of left leg below knee; Z87.891 Personal history of nicotine dependence; Z88.8 Allergy status to other drugs, medicaments and biological substances